=== PATIENT | female | born 1950 | race Two or more races ===

== ENCOUNTER 2019-11-24 00:48 | Inpatient (IN) | payer MEDICARE, MEDICAID ==
[2019-11-24] VITALS (52 sets, daily range): BP systolic 78–157; BP diastolic 28–88
[~2019-11-24] VITALS: Ht 162.6 cm; Wt 106.1 kg
--- NOTE | 2019-11-24 01:02 | Emergency Room Report ---
History of Present Illness General Chief Complaint: Dyspnea/Respdistress Source: Patient, Family Member Present Illness HPI This is a 69-year-old female who is Mongolian-speaking. She presents with chief complaint of shortness of breath and respiratory distress. Patient is a very poor historian. Her daughter called 911 because patient been weak and coughing and shortness of breath. According to her daughter, patient has a history of alcohol abuse and probably undiagnosed psychiatric disorder. She has a history of alcohol abuse. No drug use. Daughter said that patient is a hoarder and also get very anxious and paranoid. She refused to go to the doctors. She has diarrhea and vomiting about a week ago. Also been increasing cough. Was very weak. She is unable to get up on the floor. Per EMS, when they got there her oxygenation was 79% on room air. Patient says she felt better now since she is on oxygen. Unknown medical history. Allergies: Coded Allergies: No Known Allergies (Unverified , 11/24/19) COVID-19 Screening Contact w/high risk pt: No Experienced COVID-19 symptoms?: No COVID-19 Testing performed WAREHOUSE PERSON: No Patient History Past Medical History: none, see triage record, old chart reviewed Past Surgical History: none Pertinent Family History: none Social History: Reports: alcohol use Now: No Immunizations: other Reviewed Nursing Documentation: PMH: Agreed; PSxH: Agreed Nursing Documentation-PMH History Of Psychiatric Problem: Yes - ETOH Abuse Review of Systems Eye: Denies: eye pain, blurred vision ENT: Denies: ear pain, nose congestion, throat swelling Respiratory: Reports: cough, shortness of breath Cardiovascular: Denies: chest pain, palpitations Gastrointestinal: Denies: abdominal pain, diarrhea, nausea, vomiting Musculoskeletal: Denies: back pain, joint pain Skin: Denies: rash Neurological: Denies: headache, numbness Endocrine: Denies: increased thirst, increased urine Hematologic/Lymphatic: Denies: easy bruising All Other Systems: negative except mentioned in HPI Physical Exam Vital Signs Date Time Temp Pulse Resp B/P (MAP) Pulse Ox O2 Delivery O2 Flow Rate FiO2 11/24/19 00:52 78 20 105/48 (67) 99 Non-Rebreather Vitals with hypoxia Sp02 EP Interpretation: reviewed General Appearance: well appearing, alert, mild distress, obese Head: normocephalic, atraumatic Eyes: bilateral eye PERRL, bilateral eye EOMI ENT: hearing grossly normal, normal pharynx Neck: full range of motion, supple, no meningismus Respiratory: chest non-tender, decreased breath sounds, rales Cardiovascular #1: regular rate, rhythm, no murmur Gastrointestinal: normal bowel sounds, non tender, no mass, no organomegaly, no bruit, non-distended Musculoskeletal: back normal, normal range of motion, swelling - Lymphedema to lower extremity. 1+ pitting edema. Psychiatric: mood/affect normal Procedures Critical Care Time Critical Care Time Critical care is mandated in this patient who presented with sepsis and acute renal failure. Patient require my urgent intervention to attenuate the risks of metabolic collapse which may lead to cardiovascular collapse and . Critical care time is 35 minutes excluding any reportable procedure. Critical care time included evaluation, multiple reevaluation, looking at old charts, interpreting laboratory and diagnostic data, discussing case with patient and family and consultants, and charting. Medical Decision Making Diagnostic Impression: Primary Impression: Acute respiratory failure with hypoxia Additional Impressions: Sepsis Qualified Codes: A41.9 - Sepsis, unspecified organism; R65.20 - Severe sepsis without septic shock; N17.9 - Acute kidney failure, unspecified CAP (community acquired pneumonia) Qualified Codes: J18.9 - Pneumonia, unspecified organism ARF (acute renal failure) Qualified Codes: N17.9 - Acute kidney failure, unspecified Hyperkalemia Encephalopathy acute Anemia Qualified Codes: D64.9 - Anemia, unspecified ER Course Patient presents with generalized weakness and hypoxia. Oxygenation improved after nonrebreather. Now she is on 3 L nasal cannula and saturation at 99%. Chest x-ray and CT scan show bilateral pneumonia. Antibiotics given. She is also severely anemic. This is probably secondary to renal failure. She has hyperkalemia. There is no peak T waves or intraventricular conduction delay. This is treated with medication. She may need acute dialysis. Will admit. I discussed the case with Dr. Schroeder for admission. EKG Diagnostic Results Rate: normal Rhythm: NSR ST Segments: other - NSST changes Rhythm Strip Diag. Results EP Interpretation: yes Rate: 80 Rhythm: NSR, no PVC's, no ectopy Chest X-Ray Diagnostic Results Chest X-Ray Diagnostic Results : Chest X-Ray Ordered: Yes # of Views/Limited/Complete: 1 View Indication: Shortness of Breath EP Interpretation: Yes Interpretation: no effusion, no pneumothorax, other - Left lower lobe infiltrate Impression: Other - LLL infiltrates Electronically Signed by: Chuck Caruso MD CT/MRI/US Diagnostic Results CT/MRI/US Diagnostic Results : Imaging Test Ordered: CT chest, abdomen, and pelvis Impression Read by radiologist. CT chest showed bilateral pneumonia. CT abdomen pelvis showed enlarged pelvic lymph nodes. Last Vital Signs Date Time Temp Pulse Resp B/P (MAP) Pulse Ox O2 Delivery O2 Flow Rate FiO2 11/24/19 00:52 78 20 105/48 (67) 99 Non-Rebreather Status: improved Disposition: ADMITTED INPATIENT Condition: Critical Scripts No Active Prescriptions or Reported Meds Chuck Caruso MD Nov 24, 2019 01:02
[2019-11-24 01:33] LABS: HEMATOCRIT 23.3 % (37.0-47.0); MEAN CORPUSCULAR VOLUME 61 FL (80-99); PLATELET COUNT 429 K/UL (150-450); RED BLOOD COUNT 3.79 M/UL (4.20-5.40); RED CELL DISTRIBUTION WIDTH 17.2 % (11.6-14.8)
[2019-11-24 01:35] LABS: WHITE BLOOD COUNT 28.8 K/UL (4.8-10.8)
[2019-11-24 01:36] LABS: HEMOGLOBIN 6.8 G/DL (12.0-16.0)
[2019-11-24 01:42] LABS: INR 1.2 (0.9-1.1)
[2019-11-24 01:46] LABS: AMMONIA 22 umol/L (11-32)
[2019-11-24 01:57] LABS: ALANINE AMINOTRANSFERASE 43 U/L (12-78); ALBUMIN 2.4 G/DL (3.4-5.0); ALBUMIN/GLOBULIN RATIO 0.5 (1.0-2.7); ALKALINE PHOSPHATASE 163 U/L (46-116); ANION GAP 19 mmol/L (5-15); ASPARTATE AMINO TRANSFERASE 72 U/L (15-37); BILIRUBIN,TOTAL 0.4 MG/DL (0.2-1.0); BLOOD UREA NITROGEN 157 mg/dL (7-18); CARBON DIOXIDE 14 MMOL/L (21-32); CHLORIDE 106 MMOL/L (98-107); CREATININE 14.2 MG/DL (0.55-1.30); SODIUM 138 MMOL/L (136-145)
[2019-11-24] MEDS ORDERED: Azithromycin 500 MG in NS 275 ML IV ONE (02:00)
[2019-11-24] MEDS ORDERED: cefTRIAXone 1 GM in NS 55 ML IVPB ONE (02:00)
[2019-11-24 02:05] LABS: POTASSIUM 8.6 MMOL/L (3.5-5.1)
[2019-11-24] MEDS ORDERED: Sodium Bicarbonate 50ml Carp IV ONE ×2 (02:30→05:45)
[2019-11-24] MEDS ORDERED: Insulin Human Regular 100units/ml 3ml IV ONE ×2 (02:30→05:45)
[2019-11-24] MEDS ORDERED: Calcium Gluconate 1gm/10ml vial IVP ONE ×2 (02:30→05:45)
[2019-11-24] MEDS ORDERED: Sodium Polystyrene Sulfonate 15gm Powder ORAL ONE (02:30)
--- NOTE | 2019-11-24 03:04 | Diagnostic Imaging Report ---
EXAM: XR Chest, 1 View CLINICAL HISTORY: SOB TECHNIQUE: Frontal view of the chest. COMPARISON: No relevant prior studies available. FINDINGS: Lungs: Low lung volumes. Pleural space: Unremarkable. No pneumothorax. Heart: Cardiomegaly. Mediastinum: Unremarkable. Bones/joints: Unremarkable. IMPRESSION: Cardiomegaly and hypoventilatory chest. No acute superimposed findings noted.
[2019-11-24 04:20] LABS: ANION GAP 18 mmol/L (5-15); BLOOD UREA NITROGEN 155 mg/dL (7-18); CALCIUM 7.8 MG/DL (8.5-10.1); CARBON DIOXIDE 15 MMOL/L (21-32); CHLORIDE 107 MMOL/L (98-107); SODIUM 142 MMOL/L (136-145)
--- NOTE | 2019-11-24 05:24 | Diagnostic Imaging Report ---
EXAM: CT Abdomen and Pelvis Without Intravenous Contrast CLINICAL HISTORY: CP TECHNIQUE: Axial computed tomography images of the abdomen and pelvis without intravenous contrast. CTDI is 14.1 mGy and DLP is 923.8 mGy-cm. One or more of the following dose reduction techniques were used: automated exposure control, adjustment of the mA and/or kV according to patient size, use of iterative reconstruction technique. COMPARISON: No relevant prior studies available. FINDINGS: Lung bases: Unremarkable. No mass. No consolidation. ABDOMEN: Liver: Unremarkable. Gallbladder and bile ducts: Unremarkable. No calcified stones. No ductal dilation. Pancreas: Unremarkable. No ductal dilation. Spleen: Unremarkable. No splenomegaly. Adrenals: Unremarkable. No mass. Kidneys and ureters: Bilateral low-grade hydronephrosis. No radiopaque stones in the urinary tract identified except for nonobstructing 3 mm stone in the inferior pole left kidney. Stomach and bowel: Scattered colonic diverticuli. No obstruction. No mucosal thickening. PELVIS: Appendix: No findings to suggest acute appendicitis. Bladder: The urinary bladder is decompressed by an indwelling Kaminski catheter No stones. Reproductive: Unremarkable as visualized. ABDOMEN and PELVIS: Intraperitoneal space: Unremarkable. No free air. No significant fluid collection. Bones/joints: No acute fracture. No dislocation. Soft tissues: Anasarca. Vasculature: Unremarkable. No abdominal aortic aneurysm. Lymph nodes: Enlarged left superficial inguinal lymph node measuring 2 cm short axis There are bilateral enlarged external iliac lymph nodes, measuring 2.9 cm x 5.1 cm on the left and 2.7 x 2.0 cm on the right. Other findings: Beam hardening from patient's abdominal girth degrades detail. IMPRESSION: 1. Enlarged pelvic lymph nodes could reflect reactive changes from cellulitis in the setting of generalized bony wall edema, or other acute inflammatory changes but neoplasm such as lymphomas not excluded. Correlate clinically. Ultrasound of the pelvis could be considered to help distinguish patient's ovaries from presumed pelvic adenopathy. 2. Mild bilateral hydronephrosis, with a Kaminski catheter in the urinary bladder. Correlate with bladder catheter function. EXAM: CT Chest Without Intravenous Contrast CLINICAL HISTORY: CP TECHNIQUE: Axial computed tomography images of the chest without intravenous contrast. CTDI is 14.1 mGy and DLP is 923.8 mGy-cm. One or more of the following dose reduction techniques were used: automated exposure control, adjustment of the mA and/or kV according to patient size, use of iterative reconstruction technique. COMPARISON: No relevant prior studies available. FINDINGS: Lungs: Patchy airspace consolidation bilaterally, with more fluid consolidation in the posterior right lower lobe. Pleural space: Trace right pleural effusion. No pneumothorax. Heart: Unremarkable. No cardiomegaly. No significant pericardial effusion. Bones/joints: Unremarkable. No acute fracture. No dislocation. Soft tissues: Unremarkable. Vasculature: Unremarkable. No thoracic aortic aneurysm. Lymph nodes: There is mediastinal adenopathy. IMPRESSION: Bilateral pneumonia, with greater confluence in the posterior right lower lobe.
--- NOTE | 2019-11-24 05:35 | Emergency Room Report ---
Sepsis Event Note Evaluation Current Stage of Sepsis: Sepsis Possible Source: Pulmonary Focused Exam Allergies: Coded Allergies: No Known Allergies (Unverified , 11/24/19) Date Exam Occurred: Nov 24, 2019 Time Exam Occurred: 05:34 Laboratory Studies Laboratory Tests Test 11/24/19 00:57 11/24/19 02:38 11/24/19 03:58 White Blood Count 28.8 K/UL (4.8-10.8) *H Red Blood Count 3.79 M/UL (4.20-5.40) L Hemoglobin 6.8 G/DL (12.0-16.0) *L Hematocrit 23.3 % (37.0-47.0) L Mean Corpuscular Volume 61 FL (80-99) L Mean Corpuscular Hemoglobin 17.9 PG (27.0-31.0) L Mean Corpuscular Hemoglobin Concent 29.1 G/DL (32.0-36.0) L Red Cell Distribution Width 17.2 % (11.6-14.8) H Platelet Count 429 K/UL (150-450) Mean Platelet Volume 4.9 FL (6.5-10.1) L Neutrophils (%) (Auto) % (45.0-75.0) Lymphocytes (%) (Auto) % (20.0-45.0) Monocytes (%) (Auto) % (1.0-10.0) Eosinophils (%) (Auto) % (0.0-3.0) Basophils (%) (Auto) % (0.0-2.0) Differential Total Cells Counted 100 Neutrophils % (Manual) 98 % (45-75) H Lymphocytes % (Manual) 1 % (20-45) L Monocytes % (Manual) 1 % (1-10) Eosinophils % (Manual) 0 % (0-3) Basophils % (Manual) 0 % (0-2) Band Neutrophils 0 % (0-8) Platelet Estimate Adequate Platelet Morphology Normal Hypochromasia 4+ Anisocytosis 1+ Microcytosis 3+ Prothrombin Time 12.8 SEC (9.30-11.50) H Prothromb Time International Ratio 1.2 (0.9-1.1) H Activated Partial Thromboplast Time 32 SEC (23-33) Sodium Level 138 MMOL/L (136-145) 142 MMOL/L (136-145) Potassium Level 8.6 MMOL/L (3.5-5.1) *H 8.0 MMOL/L (3.5-5.1) *H Chloride Level 106 MMOL/L (98-107) 107 MMOL/L (98-107) Carbon Dioxide Level 14 MMOL/L (21-32) L 15 MMOL/L (21-32) L Anion Gap 19 mmol/L (5-15) H 18 mmol/L (5-15) H Blood Urea Nitrogen 157 mg/dL (7-18) H 155 mg/dL (7-18) H Creatinine 14.2 MG/DL (0.55-1.30) H 14.0 MG/DL (0.55-1.30) H Estimat Glomerular Filtration Rate 2.6 mL/min (>60) 2.6 mL/min (>60) Glucose Level 139 MG/DL (74-106) H 121 MG/DL (74-106) H Lactic Acid Level 1.10 mmol/L (0.4-2.0) Calcium Level 8.0 MG/DL (8.5-10.1) L 7.8 MG/DL (8.5-10.1) L Total Bilirubin 0.4 MG/DL (0.2-1.0) Aspartate Amino Transf (AST/SGOT) 72 U/L (15-37) H Alanine Aminotransferase (ALT/SGPT) 43 U/L (12-78) Alkaline Phosphatase 163 U/L (46-116) H Ammonia 22 umol/L (11-32) Troponin I 0.000 ng/mL (0.000-0.056) Pro-B-Type Natriuretic Peptide 5104 pg/mL (0-125) H Total Protein 7.5 G/DL (6.4-8.2) Albumin 2.4 G/DL (3.4-5.0) L Globulin 5.1 g/dL Albumin/Globulin Ratio 0.5 (1.0-2.7) L Lipase 941 U/L (73-393) H Serum Alcohol < 3 mg/dL Arterial Blood pH 7.060 (7.350-7.450) Arterial Blood Partial Pressure CO2 39.7 mmHg (35.0-45.0) Arterial Blood Partial Pressure O2 132.1 mmHg (75.0-100.0) H Arterial Blood HCO3 11.0 mmol/L (22.0-26.0) *L Arterial Blood Oxygen Saturation 97.2 % (95-100) Arterial Blood Base Excess -17.8 (-2-2) *L Lars Test Positive Vital Signs Last 24 Hour Vital Signs Date Time Temp Pulse Resp B/P (MAP) Pulse Ox O2 Delivery O2 Flow Rate FiO2 11/24/19 04:01 79 22 123/58 99 Nasal Cannula 3.0 11/24/19 01:43 96.4 81 20 105/48 99 Non-Rebreather 15.0 11/24/19 01:02 78 20 Non-Rebreather 15.0 11/24/19 00:52 78 20 105/48 (67) 99 Non-Rebreather Respiratory Exam: Rhonchi Cardiovascular Exam: RRR Capillary Refill: Less Than 2 Seconds Peripheral Pulse: Strong Pulse Location: Radial Skin Exam: Normal Turgor Chuck Caruso MD Nov 24, 2019 05:35
[2019-11-24] MEDS ORDERED: Sodium Bicarbonate 50 ML in 1/2 NS 1000ml 1,000 ML IV SCH (05:45)
--- NOTE | 2019-11-24 08:07 | History & Physical ---
History and Physical History & Physicial seen and examined. Full Dictation completed Rebecca Schroeder MD Nov 24, 2019 08:07
[2019-11-24] MEDS ORDERED: Insulin Human Regular 100units/ml 3ml IV SCH (08:15)
[2019-11-24] MEDS ORDERED: Albuterol/Ipratropium 3ml neb HHN PRN ×2 (08:15→09:15)
[2019-11-24] MEDS ORDERED: Calcium Chloride 100mg/ml Vial IVP SCH (08:15)
--- NOTE | 2019-11-24 08:26 | Consultation ---
Carlita Brewster ELECTRIC KNIFE OPERATOR 11/24/19 0826: History of Present Illness General Date patient seen: Nov 24, 2019 Time patient seen: 07:00 Chief Complaint: Dyspnea/Respdistress Referring physician: Dr Schroeder Reason for Consultation: resp failure, PNA Present Illness HPI 69 years old female presented this chief complaint of shortness of breath and respiratory distress. Her daughter called paramedics because patient was weak , coughing and short of breath. Per daughter , patient had a history of alcohol abuse and probably undiagnosed psychiatric disorder. Patient had not seen the doctor for a long time, since she refused to go to the doctors. She had diarrhea and vomiting about a week . She had increased cough. No wheezing, no hemoptysis. Pulse oximetry per evaluation by paramedics was 79%, and patient started on supplemental oxygen . patient initially was on nonrebreathing mask. Laboratory work-up revealed significant leukocytosis WBC 20.8, hemoglobin 6.8 , hematocrit 23.3, platelet count 429. Lactic acid 1.1 ABG on 3L revealed pH 7.06, PCO2 39 , bicarb 11, O2 sat 97%. Chemistry demonstrated sodium 138, potassium 8.6, anion gap 19. BUN 157 , creatinine 14.2 Glucose 139. AST 72 ALT 43 , lipase 941 Ammonia 22 Troponin negative , EKG revealed sinus rhythm, pro BNP 5124 Serum alcohol level less than 3. Chest x-ray demonstrated cardiomegaly, no acute superimposed findings. CT of the chest abdomen and pelvis revealed bilateral pneumonia, mild bilateral hydronephrosis with Kaminski in the urinary bladder and enlarged pelvic lymph nodes , which could reflect reactive changes from cellulitis in the setting of generalized bony wall edema, but neoplasm such as lymphoma not excluded. Rapid COVID-19 in the ER was negative. In emergency department septic work-up initiated Patient started on IV fluids, pancultured and started on empiric antibiotics Hyperkalemia was treated. Labs later still revealed hyperkalemia. Patient is currently on telemetry floor and being transferred to ICU for renal failure and hyperkalemia. Pulmonary consult was requested to manage respiratory failure and bilateral pneumonia. Allergies: Coded Allergies: No Known Allergies (Unverified , 11/24/19) Medication History No Active Prescriptions or Reported Meds Patient History Healthcare decision maker Resuscitation status Advanced Directive on File Review of Systems ROS Narrative pt unable to provide any history Physical Exam General Appearance: other - Persian speaking in mild resp distress obese and edematous female Lines, tubes and drains: peripheral HEENT: normocephalic, atraumatic, anicteric, mucous membranes moist Neck: non-tender, supple Respiratory/Chest: no accessory muscle use, other - crackles at abses Cardiovascular/Chest: normal peripheral pulses, normal rate, regular rhythm Abdomen: normal bowel sounds, soft - obese, non tender Extremities: normal range of motion, non-tender, no calf tenderness, other - +1 -2 edema BLE Neurologic: no motor/sensory deficits, alert, responsive - confused Musculoskeletal: normal muscle bulk Last 24 Hour Vital Signs Date Time Temp Pulse Resp B/P (MAP) Pulse Ox O2 Delivery O2 Flow Rate FiO2 11/24/19 04:01 79 22 123/58 99 Nasal Cannula 3.0 11/24/19 03:11 97.0 75 18 111/77 100 Nasal Cannula 3.0 11/24/19 01:43 96.4 81 20 105/48 99 Non-Rebreather 15.0 11/24/19 01:02 78 20 Non-Rebreather 15.0 11/24/19 00:52 78 20 105/48 (67) 99 Non-Rebreather Intake and Output 11/23/19 11/24/19 19:00 07:00 Intake Total 330 ml Balance 330 ml Intake Oral 0 ml IV Total 330 ml Laboratory Tests Test 11/24/19 00:57 11/24/19 02:38 11/24/19 03:58 11/24/19 05:43 White Blood Count 28.8 K/UL (4.8-10.8) *H Red Blood Count 3.79 M/UL (4.20-5.40) L Hemoglobin 6.8 G/DL (12.0-16.0) *L Hematocrit 23.3 % (37.0-47.0) L Mean Corpuscular Volume 61 FL (80-99) L Mean Corpuscular Hemoglobin 17.9 PG (27.0-31.0) L Mean Corpuscular Hemoglobin Concent 29.1 G/DL (32.0-36.0) L Red Cell Distribution Width 17.2 % (11.6-14.8) H Platelet Count 429 K/UL (150-450) Mean Platelet Volume 4.9 FL (6.5-10.1) L Neutrophils (%) (Auto) % (45.0-75.0) Lymphocytes (%) (Auto) % (20.0-45.0) Monocytes (%) (Auto) % (1.0-10.0) Eosinophils (%) (Auto) % (0.0-3.0) Basophils (%) (Auto) % (0.0-2.0) Differential Total Cells Counted 100 Neutrophils % (Manual) 98 % (45-75) H Lymphocytes % (Manual) 1 % (20-45) L Monocytes % (Manual) 1 % (1-10) Eosinophils % (Manual) 0 % (0-3) Basophils % (Manual) 0 % (0-2) Band Neutrophils 0 % (0-8) Platelet Estimate Adequate Platelet Morphology Normal Hypochromasia 4+ Anisocytosis 1+ Microcytosis 3+ Prothrombin Time 12.8 SEC (9.30-11.50) H Prothromb Time International Ratio 1.2 (0.9-1.1) H Activated Partial Thromboplast Time 32 SEC (23-33) Sodium Level 138 MMOL/L (136-145) 142 MMOL/L (136-145) Potassium Level 8.6 MMOL/L (3.5-5.1) *H 8.0 MMOL/L (3.5-5.1) *H Chloride Level 106 MMOL/L (98-107) 107 MMOL/L (98-107) Carbon Dioxide Level 14 MMOL/L (21-32) L 15 MMOL/L (21-32) L Anion Gap 19 mmol/L (5-15) H 18 mmol/L (5-15) H Blood Urea Nitrogen 157 mg/dL (7-18) H 155 mg/dL (7-18) H Creatinine 14.2 MG/DL (0.55-1.30) H 14.0 MG/DL (0.55-1.30) H Estimat Glomerular Filtration Rate 2.6 mL/min (>60) 2.6 mL/min (>60) Glucose Level 139 MG/DL (74-106) H 121 MG/DL (74-106) H Lactic Acid Level 1.10 mmol/L (0.4-2.0) Calcium Level 8.0 MG/DL (8.5-10.1) L 7.8 MG/DL (8.5-10.1) L Total Bilirubin 0.4 MG/DL (0.2-1.0) Aspartate Amino Transf (AST/SGOT) 72 U/L (15-37) H Alanine Aminotransferase (ALT/SGPT) 43 U/L (12-78) Alkaline Phosphatase 163 U/L (46-116) H Ammonia 22 umol/L (11-32) Troponin I 0.000 ng/mL (0.000-0.056) Pro-B-Type Natriuretic Peptide 5104 pg/mL (0-125) H Total Protein 7.5 G/DL (6.4-8.2) Albumin 2.4 G/DL (3.4-5.0) L Globulin 5.1 g/dL Albumin/Globulin Ratio 0.5 (1.0-2.7) L Lipase 941 U/L (73-393) H Serum Alcohol < 3 mg/dL Arterial Blood pH 7.060 (7.350-7.450) Arterial Blood Partial Pressure CO2 39.7 mmHg (35.0-45.0) Arterial Blood Partial Pressure O2 132.1 mmHg (75.0-100.0) H Arterial Blood HCO3 11.0 mmol/L (22.0-26.0) *L Arterial Blood Oxygen Saturation 97.2 % (95-100) Arterial Blood Base Excess -17.8 (-2-2) *L Lars Test Positive POC Whole Blood Glucose 123 MG/DL (74-106) H Microbiology Date/Time Source Procedure Growth Status 11/24/19 00:57 Nasopharynx SARS-CoV-2 RdRp Gene Assay - Final Complete Height (Feet): 5 Height (Inches): 5.00 Weight (Pounds): 275 Medications Current Medications Medications (Trade) Dose Ordered Sig/Brina Route PRN Reason Start Time Stop Time Status Last Admin Dose Admin Calcium Chloride (Calcium Chloride 10%) 1,000 mg STAT ONCE IVP 11/24/19 08:00 11/24/19 08:01 UNV Dextrose (Dextrose 50%) 50 ml STAT ONCE IV 11/24/19 08:00 11/24/19 08:01 UNV Insulin Human Regular (NovoLIN R) 10 units ONCE ONCE IV 11/24/19 08:00 11/24/19 08:01 UNV Sodium Bicarbonate 50 ml/ Sodium Chloride 1,050 ml @ 75 mls/hr Q14H IV 11/24/19 05:45 12/24/19 05:44 11/24/19 05:59 Assessment/Plan Assessment/Plan: ASSESSMENT Sepsis Pneumonia Acute hypoxemic respiratory failure Acute toxic metabolic encephalopathy ( multifactorial due to ARF, sepsis) Acute renal failure Hyperkalemia Anemia Elevated lipase possible pancreatitis Enlarged pelvic lymph nodes Anasarca History of EtOH abuse Possible psychiatric disorder PLAN OF CARE transfer to ICU supplemental O2 titrate to keep sat above 92% pulm toilet as needed empiric abx for CAP fup with CXR and ABG SCX if able Venous Duplex BLE rapid COVID 19 NGT IVF with bicarb, further management of ARF and hyper K as per nephro monitor HH with goal to keep Hg above 7, anemia w/up stool OB likely anemia of chronci IVF with bicarb may need HD monitor volumes ECHO cardiac monitoring repeat CBC stat and transfuse if Hg below 7 trend lipase and LFT elev LFT possibly due to hx of ETOH abuse, but also elevated liapse will get hep panel abd US, given enlargen lymph nodes thank you for consult case discussed and evaluated by supervising physician Gabe Rosa MD 11/24/19 1122: History of Present Illness General Chief Complaint: Dyspnea/Respdistress Present Illness Allergies: Coded Allergies: No Known Allergies (Unverified , 11/24/19) Medication History No Active Prescriptions or Reported Meds Assessment/Plan Assessment/Plan: Patient seen and examined with ELECTRIC KNIFE OPERATOR. Agree with above A&P as it reflects our joint deliberations SIRS/Sepsis Acute renal failure AGMA Leukocytosis Anemia Pelvic LAD EtOh abuse Recent respiratory illness Start HCO3- gtt R fem CVC placed Awaiting urgent HD Repeat ABG in 30 min ----> low threshold to intubate Vanco/Zosyn Transfuse GI recs R/O COVID with 2nd PCR FC, continue to discuss GOC Monitor MS NPO CCT 60 min Carlita Brewster ELECTRIC KNIFE OPERATOR Nov 24, 2019 08:26 Gabe Rosa MD Nov 24, 2019 11:22
[2019-11-24] MEDS ORDERED: Calcium Gluconate 1gm/10ml vial IVP SCH (08:30)
[2019-11-24] MEDS ORDERED: Morphine Sulfate 2mg/ml Inj(IV/IM USE ONLY) IVP PRN (09:15)
[2019-11-24] MEDS ORDERED: Piperacillin/Tazobactam 3.375 GM in NS 110 ML IVPB SCH (09:15)
--- NOTE | 2019-11-24 09:22 | Consultation ---
Consult Note Consult Note I am asked to evaluate the patient at the request of Dr. Schroeder for renal failure and severe hyperkalemia This is a 69-year-old female who is Turkmen-speaking. She presents with chief complaint of shortness of breath and respiratory distress. Patient is a very poor historian. Her daughter called 911 because patient been weak and coughing and shortness of breath. According to her daughter, patient has a history of alcohol abuse and probably undiagnosed psychiatric disorder. She has a history of alcohol abuse. No drug use. Daughter said that patient is a hoarder and also get very anxious and paranoid. She refused to go to the doctors. She has diarrhea and vomiting about a week ago. Also been increasing cough. Was very weak. She is unable to get up on the floor. Per EMS, when they got there her oxygenation was 79% on room air. Patient says she felt better now since she is on oxygen. Unknown medical history. Allergies: No Known Allergies (Unverified , 11/24/19) COVID-19 Screening Contact w/high risk pt: No Experienced COVID-19 symptoms?: No COVID-19 Testing performed BOTANY TEACHER: No Patient seen in room [address]. On her [address] to ICU. Discussed with RN. Discussed with Dr. Schroeder Examined Data reviewed General Appearance: other - Turkmen speaking in mild resp distress obese and edematous female Lines, tubes and drains: peripheral HEENT: normocephalic, atraumatic, anicteric, mucous membranes moist Neck: non-tender, supple Respiratory/Chest: no accessory muscle use, other - crackles at abses Cardiovascular/Chest: normal peripheral pulses, normal rate, regular rhythm Abdomen: normal bowel sounds, soft - obese, non tender Extremities: normal range of motion, non-tender, no calf tenderness, other - +1 -2 edema BLE Neurologic: no motor/sensory deficits, alert, responsive - confused Musculoskeletal: normal muscle bulk Last 24 Hour Vital Signs Date Time Temp Pulse Resp B/P (MAP) Pulse Ox O2 Delivery O2 Flow Rate FiO2 11/24/19 04:01 79 22 123/58 99 Nasal Cannula 3.0 11/24/19 03:11 97.0 75 18 111/77 100 Nasal Cannula 3.0 11/24/19 01:43 96.4 81 20 105/48 99 Non-Rebreather 15.0 11/24/19 01:02 78 20 Non-Rebreather 15.0 11/24/19 00:52 78 20 105/48 (67 99 Non-Rebreather Assessment/Plan Acute renal failure and hyperkalemia Most likely underlying chronic kidney disease Sepsis, pneumonia Toxic metabolic encephalopathy Severe anemia Morbid obesity Acute hypoxemic respiratory failure Elevated lipase possible pancreatitis Enlarged pelvic lymph nodes Anasarca History of EtOH abuse Possible psychiatric disorder Patient need emergency hemodialysis General surgeon contacted to put a temporary dialysis catheter Emergency dialysis ordered Patient already treated for hyperkalemia with medications Anemia work-up ordered IV Venofer, subcu Epogen ordered Continue to monitor renal parameters Per orders I spent an additional 36 minutes on review of medical records including prior hospital records,consult notes, progress notes, procedures ,imaging labs, hemodynamics, and other clinical documentation. Over 35 min Jean-Pierre Garcia MD Nov 24, 2019 09:22
[2019-11-24 09:50] LABS: CHOLESTEROL 112 MG/DL (< 200); HDL CHOLESTEROL 32 MG/DL (40-60); TRIGLYCERIDES 92 MG/DL (30-150)
[2019-11-24] MEDS ORDERED: Lidocaine 1% 10mg/ml/EPI 0.01mg/ml 30ml INJ SCH (10:15)
--- NOTE | 2019-11-24 10:15 | Consultation ---
DATE OF CONSULTATION: 11/24/2019 CHIEF COMPLAINT: Anemia. HISTORY OF PRESENT ILLNESS: This is a very pleasant 69-year-old female. Actually at this time, she is in mild respiratory distress and not able to give any good history. She was admitted to the hospital mainly for shortness of breath. According to the family members, the patient is alcoholic and does not follow with the physicians. She possibly has history of baseline psychiatric disorder. The patient in the hospital was found to be in acute renal failure with potassium of 8, anemic, elevated lipase and so GI consult requested for evaluation. PAST MEDICAL HISTORY: 1. Alcohol abuse. 2. Questionable psychiatric disorder. PAST SURGICAL HISTORY: Unknown. ALLERGIES: No known allergies. MEDICATIONS: Please see medication reconciliation list. SOCIAL HISTORY: The patient has history of alcohol abuse. No prior history of IV drug abuse. FAMILY HISTORY: Noncontributory. REVIEW OF SYSTEMS: Limited. PHYSICAL EXAMINATION: VITAL SIGNS: Temperature 97, pulse 79, respirations 22, blood pressure is 123/58. HEENT: Normocephalic and atraumatic. Pale conjunctivae. NECK: Supple. No evidence of obvious lymphadenopathy. CARDIOVASCULAR: Regular rate and rhythm. Plus S1 and S2. LUNGS: Decreased breath sounds bilaterally based on the supine exam. ABDOMEN: Obese. Distended. Bowel sounds are hypoactive. No rebound. No guarding. No peritoneal sign. EXTREMITIES: No cyanosis, no clubbing. LABORATORY AND DIAGNOSTIC DATA: White count is 28,000, hemoglobin 6.8, hematocrit 23, MCV of 61, platelet count of 429. ASSESSMENT AND PLAN: 1. Acute renal failure. 2. Leukocytosis. 3. History of alcohol abuse. 4. Profound microcytic anemia. 5. Prior history of possible psychiatric disorder. 6. Elevated lipase. 7. Mild transaminitis. 8. Pelvic lymphadenopathy. RECOMMENDATION: Stat dialysis per Nephrology. Blood transfusion to keep hemoglobin above 7. Anemia workup. Antibiotics per ID, possibly pelvic ultrasound when the patient is more stable. Check LDH. Repeat labs for tomorrow. GI procedures on hold for now. I want to thank, Dr. Schroeder, for this kind referral. Ministerio Davis M.D. DR: Mary JOB#: [id number] CC: Rebecca Schroeder M.D.; Fax#: [phone]
[2019-11-24 10:20] LABS: HEMATOCRIT 22.2 % (37.0-47.0); MEAN CORPUSCULAR VOLUME 62 FL (80-99); PLATELET COUNT 385 K/UL (150-450); RED BLOOD COUNT 3.56 M/UL (4.20-5.40); RED CELL DISTRIBUTION WIDTH 17.4 % (11.6-14.8)
[2019-11-24] MEDS: Zosyn 2.25 gm in D5W 55ml IV SCH ×2 (10:21→17:38)
[2019-11-24 10:24] LABS: HEMOGLOBIN 6.2 G/DL (12.0-16.0); WHITE BLOOD COUNT 30.5 K/UL (4.8-10.8)
[2019-11-24 10:43] LABS: FERRITIN 86 NG/ML (8-388)
[2019-11-24] MEDS ORDERED: Pantoprazole Inj IVP SCH (11:00)
[2019-11-24] MEDS: Sodium Bicarbonate 150 ML in D5W 1000ml 1,000 ML IV SCH ×2 (11:12→20:25)
--- NOTE | 2019-11-24 11:30 | Operative Note - PDOC ---
Operative Note Operative Note Date of Operation/Procedure: Nov 24, 2019 Pre-op Diagnosis: hyperkalemia renal insufficiency sepsis Procedure: right femoral temporary Hemodialysis catheter insertion Post-op Diagnosis: same as pre-op Surgeon: cici naik MD Anesthesia: local Specimen: none Complications: none Condition: unstable Estimated Blood Loss: minimal Drains: none Implant(s) used?: No Indications for Procedure 69F critically ill in ICU with hyperkalemia k>8, anemia, sepsis, renal insufficiency. EMERGENCY HD indicated and recommended. needs access as no prior HD. Description of Procedure patient made comfortable at the bedside. right groin was prepped and draped in standard surgical fashion. local infiltrated. anatomy identified. finder needle used and right femoral vein cannulated without complication good venous flow identified. Guidewire placed over needle needle removed. Local anesthetic further infiltrated for patient's comfort and a 11 scalpel use small incision made around the guidewire. Dilators were then used and the tract was dilated. A triple-lumen temporary hemodialysis catheter was inserted over guidewire without complication. Guidewire removed and discarded. All ports flushed and aspirated appropriately. Line was sutured in place and dressings were applied. Stat hemodialysis ordered. Line okay to use. Will follow with recommendations. Thank you Cici Naik Nov 24, 2019 11:30
[2019-11-24 11:40] LABS: % IRON SATURATION 3 % (15-50); IRON 7 ug/dL (50-175); TOTAL IRON BINDING CAPACITY 239 ug/dL (250-450)
[2019-11-24] MEDS ORDERED: Vancomycin 1.5gm/NS Premix IVPB ONE (12:00)
--- NOTE | 2019-11-24 12:45 | History and Physical Report ---
DATE OF ADMISSION: 11/24/2019 SOURCE OF INFORMATION: The patient and EMR. HISTORY OF PRESENT ILLNESS: The patient is a 69-year-old female with unknown past medical history. At the time of evaluation, the patient is delirious. Source of information is based on the ER attending documentation. Apparently, the patient came with the shortness of breath via 911 called by her daughter. Reported history of alcohol abuse and psychiatric problems. At the time of evaluation, the patient is poor historian, is not able to communicate more than one word at the time. REVIEW OF SYSTEMS: Limited as above. PAST MEDICAL AND SURGICAL HISTORY: Including, but not limited to psychiatric disorder, remainder cannot be obtained. FAMILY HISTORY: Not obtained. ALLERGIES: NKDA, with limitations not verified. MEDICATIONS: Current hospital medications including, but not limited to D5 saline at 75 mL/hr. PHYSICAL EXAMINATION: VITAL SIGNS: Blood pressure , temperature 97.8, respiratory rate 25. HEAD AND NECK: Atraumatic and normocephalic. CHEST: Diffuse bronchial breathing sounds. HEART: S1 and S2. Regular rate and rhythm. ABDOMEN: Soft. No organomegaly. Protuberant. No tenderness. MUSCULOSKELETAL: No gross lateralized motor deficit. It is limited examination as the patient is not cooperative. NEUROLOGIC: The patient is delirious. DIAGNOSTIC AND LABORATORY DATA: Imaging, dated November [address] scan of abdomen and pelvis, multiple lymph nodes in the pelvic area, mild bilateral hydronephrosis. Chest x-ray shows cardiomegaly, otherwise unremarkable. Labs, dated shows WBC 28.8, hemoglobin 6.8, platelet 429,000, MCV 61. Potassium 8.6, creatinine 14.2. AST 42. Troponin x1 negative. Lipase 900. INR 1.2. ASSESSMENT: 1. Severe sepsis. 2. Hypoxemic respiratory failure. 3. Hyperkalemia. 4. End-stage renal disease. 5. CHF, likely diagnosis. 6. Abnormal blood sugar. 7. Microcytic anemia. 8. GI and DVT prophylaxis. PLAN OF CARE: We will transfer the patient to the ICU. Nephrology, Pulmonary, Infectious Disease have been consulted and notified. We will start the patient with empiric antibiotic treatment. Proceed with dialysis. The patient remains in grave prognosis. Rebecca Schroeder M.D. DR: LOREN JOB#: [id number] CC:
[2019-11-24] MEDS: Norepinephrine 4mg/NS Premix 250 ML IV SCH (13:45)
[2019-11-24] MEDS ORDERED: Iron Sucrose 200 MG in NS 110 ML IV ONE (16:00)
[2019-11-24 19:35] LABS: HEMOGLOBIN 8.3 G/DL (12.0-16.0); MEAN CORPUSCULAR VOLUME 66 FL (80-99); PLATELET COUNT 328 K/UL (150-450); RED BLOOD COUNT 3.94 M/UL (4.20-5.40); RED CELL DISTRIBUTION WIDTH 24.4 % (11.6-14.8)
[2019-11-24 19:38] LABS: INR 1.2 (0.9-1.1)
[2019-11-24 19:43] LABS: WHITE BLOOD COUNT 25.6 K/UL (4.8-10.8)
[2019-11-24] MEDS: Pantoprazole Inj IVP SCH (20:25)
--- NOTE | 2019-11-24 20:28 | Cardiology Progress Note ---
Assessment/Plan Assessment/Plan The patient is seen and examined, full consult note will be dictated shortly. Objective Last 24 Hour Vital Signs Date Time Temp Pulse Resp B/P (MAP) Pulse Ox O2 Delivery O2 Flow Rate FiO2 11/24/19 20:00 Bi-pap 11/24/19 20:00 107 11/24/19 20:00 107 28 145/74 (97) 96 11/24/19 19:30 103 26 129/69 (89) 95 11/24/19 19:00 105 24 137/64 (88) 99 11/24/19 18:54 103 26 98 40 11/24/19 18:45 104 20 133/64 (87) 97 11/24/19 18:30 94 19 132/68 (89) 96 11/24/19 18:15 105 25 134/64 (87) 95 11/24/19 18:00 106 25 135/83 (100) 95 11/24/19 17:45 104 21 145/81 (102) 94 11/24/19 17:30 96 18 140/70 (93) 96 11/24/19 17:15 103 20 137/63 (87) 97 11/24/19 17:00 102 19 136/67 (90) 97 11/24/19 16:45 103 17 133/56 (81) 96 11/24/19 16:30 98 19 150/72 (98) 96 11/24/19 16:15 102 19 138/61 (86) 97 11/24/19 16:00 108 11/24/19 16:00 40 11/24/19 16:00 Bi-pap 11/24/19 16:00 98.6 98 19 140/59 (86) 97 11/24/19 15:45 106 19 126/68 (87) 99 11/24/19 15:42 108 20 100 40 11/24/19 15:30 107 15 131/62 (85) 100 11/24/19 15:15 108 17 135/86 (102) 100 11/24/19 15:00 97.4 106 17 157/69 (98) 100 11/24/19 14:56 103 17 146/72 (96) 100 11/24/19 14:45 109 17 116/64 (81) 100 11/24/19 14:30 103 18 134/71 (92) 100 11/24/19 14:15 103 19 128/60 (82) 100 11/24/19 14:09 99 18 129/65 (86) 100 11/24/19 14:00 99 17 144/66 (92) 100 11/24/19 13:45 82/43 11/24/19 13:45 101 19 132/57 (82) 100 11/24/19 13:42 109 20 103/48 (66) 100 11/24/19 13:30 50 11/24/19 13:30 50 11/24/19 13:30 100 16 82/43 (56) 100 11/24/19 13:25 94.8 102 22 90/42 (58) 100 11/24/19 13:22 100 22 78/45 (56) 100 11/24/19 13:19 101 22 86/38 (54) 99 11/24/19 13:15 101 21 89/40 (56) 94 11/24/19 13:09 104 22 83/43 (56) 92 11/24/19 13:06 100 22 88/38 (55) 93 11/24/19 13:03 102 23 90/48 (62) 94 11/24/19 13:00 98 21 80/44 (56) 94 11/24/19 13:00 30 11/24/19 12:55 104 24 92 30 11/24/19 12:30 93 20 111/51 (71) 93 11/24/19 12:27 99 25 132/62 (85) 91 11/24/19 12:23 68 32 108/29 (55) 88 11/24/19 12:18 84 27 109/28 (55) 90 11/24/19 12:15 84 26 121/51 (74) 92 11/24/19 12:09 83 25 119/53 (75) 95 11/24/19 12:00 95.0 81 25 134/59 (84) 93 11/24/19 12:00 Bi-pap 11/24/19 10:02 72 20 100 Nasal Cannula 2.0 28 63 22 100 11/24/19 09:49 98.7 87 24 135/88 (104) 98 11/24/19 09:25 Nasal Cannula 2.0 11/24/19 09:13 Nasal Cannula 3.0 11/24/19 09:00 3.0 11/24/19 08:00 98.7 87 24 135/88 (104) 98 11/24/19 08:00 71 11/24/19 04:01 79 22 123/58 99 Nasal Cannula 3.0 11/24/19 03:11 97.0 75 18 111/77 100 Nasal Cannula 3.0 11/24/19 01:43 96.4 81 20 105/48 99 Non-Rebreather 15.0 11/24/19 01:02 78 20 Non-Rebreather 15.0 11/24/19 00:52 78 20 105/48 (67) 99 Non-Rebreather Intake and Output 11/23/19 11/24/19 19:00 07:00 Intake Total 330 ml Balance 330 ml Intake Oral 0 ml IV Total 330 ml Laboratory Tests Test 11/24/19 00:57 11/24/19 02:38 11/24/19 03:58 11/24/19 05:43 White Blood Count 28.8 K/UL (4.8-10.8) *H Red Blood Count 3.79 M/UL (4.20-5.40) L Hemoglobin 6.8 G/DL (12.0-16.0) *L Hematocrit 23.3 % (37.0-47.0) L Mean Corpuscular Volume 61 FL (80-99) L Mean Corpuscular Hemoglobin 17.9 PG (27.0-31.0) L Mean Corpuscular Hemoglobin Concent 29.1 G/DL (32.0-36.0) L Red Cell Distribution Width 17.2 % (11.6-14.8) H Platelet Count 429 K/UL (150-450) Mean Platelet Volume 4.9 FL (6.5-10.1) L Neutrophils (%) (Auto) % (45.0-75.0) Lymphocytes (%) (Auto) % (20.0-45.0) Monocytes (%) (Auto) % (1.0-10.0) Eosinophils (%) (Auto) % (0.0-3.0) Basophils (%) (Auto) % (0.0-2.0) Differential Total Cells Counted 100 Neutrophils % (Manual) 98 % (45-75) H Lymphocytes % (Manual) 1 % (20-45) L Monocytes % (Manual) 1 % (1-10) Eosinophils % (Manual) 0 % (0-3) Basophils % (Manual) 0 % (0-2) Band Neutrophils 0 % (0-8) Platelet Estimate Adequate Platelet Morphology Normal Hypochromasia 4+ Anisocytosis 1+ Microcytosis 3+ Prothrombin Time 12.8 SEC (9.30-11.50) H Prothromb Time International Ratio 1.2 (0.9-1.1) H Activated Partial Thromboplast Time 32 SEC (23-33) Sodium Level 138 MMOL/L (136-145) 142 MMOL/L (136-145) Potassium Level 8.6 MMOL/L (3.5-5.1) *H 8.0 MMOL/L (3.5-5.1) *H Chloride Level 106 MMOL/L (98-107) 107 MMOL/L (98-107) Carbon Dioxide Level 14 MMOL/L (21-32) L 15 MMOL/L (21-32) L Anion Gap 19 mmol/L (5-15) H 18 mmol/L (5-15) H Blood Urea Nitrogen 157 mg/dL (7-18) H 155 mg/dL (7-18) H Creatinine 14.2 MG/DL (0.55-1.30) H 14.0 MG/DL (0.55-1.30) H Estimat Glomerular Filtration Rate 2.6 mL/min (>60) 2.6 mL/min (>60) Glucose Level 139 MG/DL (74-106) H 121 MG/DL (74-106) H Hemoglobin A1c 6.0 % (4.3-6.0) Lactic Acid Level 1.10 mmol/L (0.4-2.0) Calcium Level 8.0 MG/DL (8.5-10.1) L 7.8 MG/DL (8.5-10.1) L Total Bilirubin 0.4 MG/DL (0.2-1.0) Aspartate Amino Transf (AST/SGOT) 72 U/L (15-37) H Alanine Aminotransferase (ALT/SGPT) 43 U/L (12-78) Alkaline Phosphatase 163 U/L (46-116) H Ammonia 22 umol/L (11-32) Troponin I 0.000 ng/mL (0.000-0.056) Pro-B-Type Natriuretic Peptide 5104 pg/mL (0-125) H Total Protein 7.5 G/DL (6.4-8.2) Albumin 2.4 G/DL (3.4-5.0) L Globulin 5.1 g/dL Albumin/Globulin Ratio 0.5 (1.0-2.7) L Triglycerides Level 92 MG/DL (30-150) Cholesterol Level 112 MG/DL (< 200) LDL Cholesterol 59 mg/dL (<100) HDL Cholesterol 32 MG/DL (40-60) L Cholesterol/HDL Ratio 3.5 (3.3-4.4) Lipase 941 U/L (73-393) H Serum Alcohol < 3 mg/dL Arterial Blood pH 7.060 (7.350-7.450) Arterial Blood Partial Pressure CO2 39.7 mmHg (35.0-45.0) Arterial Blood Partial Pressure O2 132.1 mmHg (75.0-100.0) H Arterial Blood HCO3 11.0 mmol/L (22.0-26.0) *L Arterial Blood Oxygen Saturation 97.2 % (95-100) Arterial Blood Base Excess -17.8 (-2-2) *L Lars Test Positive POC Whole Blood Glucose 123 MG/DL (74-106) H Test 11/24/19 08:14 11/24/19 09:55 11/24/19 12:30 11/24/19 14:00 POC Whole Blood Glucose 98 MG/DL (74-106) White Blood Count 30.5 K/UL (4.8-10.8) *H Red Blood Count 3.56 M/UL (4.20-5.40) L Hemoglobin 6.2 G/DL (12.0-16.0) *L Hematocrit 22.2 % (37.0-47.0) L Mean Corpuscular Volume 62 FL (80-99) L Mean Corpuscular Hemoglobin 17.4 PG (27.0-31.0) L Mean Corpuscular Hemoglobin Concent 27.9 G/DL (32.0-36.0) L Red Cell Distribution Width 17.4 % (11.6-14.8) H Platelet Count 385 K/UL (150-450) Mean Platelet Volume 4.6 FL (6.5-10.1) L Neutrophils (%) (Auto) % (45.0-75.0) Lymphocytes (%) (Auto) % (20.0-45.0) Monocytes (%) (Auto) % (1.0-10.0) Eosinophils (%) (Auto) % (0.0-3.0) Basophils (%) (Auto) % (0.0-2.0) Differential Total Cells Counted 100 Neutrophils % (Manual) 88 % (45-75) H Lymphocytes % (Manual) 5 % (20-45) L Monocytes % (Manual) 7 % (1-10) Eosinophils % (Manual) 0 % (0-3) Basophils % (Manual) 0 % (0-2) Band Neutrophils 0 % (0-8) Platelet Estimate Adequate Platelet Morphology Normal Polychromasia 1+ Hypochromasia 1+ Anisocytosis 1+ Microcytosis 2+ Iron Level 7 ug/dL (50-175) L Total Iron Binding Capacity 239 ug/dL (250-450) L Percent Iron Saturation 3 % (15-50) L Unsaturated Iron Binding 232 ug/dL (112-346) Ferritin 86 NG/ML (8-388) Vitamin B12 Level > 2000 PG/ML (193-986) H Folate 6.8 NG/ML (8.6-58.9) L Arterial Blood pH 7.264 (7.350-7.450) Arterial Blood Partial Pressure CO2 39.8 mmHg (35.0-45.0) Arterial Blood Partial Pressure O2 272.0 mmHg (75.0-100.0) H Arterial Blood HCO3 17.6 mmol/L (22.0-26.0) *L Arterial Blood Oxygen Saturation 99.1 % (95-100) Arterial Blood Base Excess -8.6 (-2-2) L Lars Test Positive Troponin I 0.000 ng/mL (0.000-0.056) Hepatitis B Surface Antigen Pending Test 11/24/19 14:26 11/24/19 19:15 Arterial Blood pH 7.461 (7.350-7.450) Arterial Blood Partial Pressure CO2 35.3 mmHg (35.0-45.0) Arterial Blood Partial Pressure O2 116.3 mmHg (75.0-100.0) H Arterial Blood HCO3 24.6 mmol/L (22.0-26.0) Arterial Blood Oxygen Saturation 98.0 % (95-100) Arterial Blood Base Excess 1.0 (-2-2) Lars Test Positive White Blood Count 25.6 K/UL (4.8-10.8) *H Red Blood Count 3.94 M/UL (4.20-5.40) L Hemoglobin 8.3 G/DL (12.0-16.0) #L Hematocrit 26.0 % (37.0-47.0) L Mean Corpuscular Volume 66 FL (80-99) L Mean Corpuscular Hemoglobin 21.0 PG (27.0-31.0) L Mean Corpuscular Hemoglobin Concent 31.8 G/DL (32.0-36.0) L Red Cell Distribution Width 24.4 % (11.6-14.8) H Platelet Count 328 K/UL (150-450) Mean Platelet Volume 5.0 FL (6.5-10.1) L Neutrophils (%) (Auto) % (45.0-75.0) Lymphocytes (%) (Auto) % (20.0-45.0) Monocytes (%) (Auto) % (1.0-10.0) Eosinophils (%) (Auto) % (0.0-3.0) Basophils (%) (Auto) % (0.0-2.0) Neutrophils % (Manual) Pending Lymphocytes % (Manual) Pending Platelet Estimate Pending Platelet Morphology Pending Prothrombin Time 12.7 SEC (9.30-11.50) H Prothromb Time International Ratio 1.2 (0.9-1.1) H Activated Partial Thromboplast Time 34 SEC (23-33) H Microbiology Date/Time Source Procedure Growth Status 11/24/19 12:00 Nasopharynx SARS-CoV-2 RdRp Gene Assay - Final Complete 11/24/19 00:57 Nasopharynx SARS-CoV-2 RdRp Gene Assay - Final Complete Adryan Lopez MD Nov 24, 2019 20:28
[2019-11-24 21:59] LABS: ANION GAP 15 mmol/L (5-15); BLOOD UREA NITROGEN 89 mg/dL (7-18); CALCIUM 8.1 MG/DL (8.5-10.1); CARBON DIOXIDE 25 MMOL/L (21-32); CHLORIDE 105 MMOL/L (98-107); CREATININE 8.9 MG/DL (0.55-1.30); POTASSIUM 5.1 MMOL/L (3.5-5.1); SODIUM 145 MMOL/L (136-145)
--- NOTE | 2019-11-24 23:15 | Consultation ---
DATE OF CONSULTATION: 11/24/2019 CARDIOLOGY CONSULTATION REFERRING PHYSICIAN: Rebecca Schroeder M.D. REASON FOR CONSULTATION: Management of congestive heart failure. HISTORY OF PRESENT ILLNESS: The patient is a very unfortunate 69-year-old female who presents to the hospital with progressive worsening of shortness of breath and cough as well as generalized weakness. The patient has had underlying alcohol abuse and psychiatric disorder according to the patient's daughter. The patient had also recent episodes of diarrhea and vomiting. The patient was brought in by EMS, who recorded an oxygen saturation of 79% on room air. At the time of arrival to the emergency department, blood pressure was 105/48 mmHg and heart rate was 78. Her 12-lead electrocardiogram was significant for sinus rhythm with first-degree AV block, intraventricular conduction delay, and nonspecific ST and T-wave abnormalities. Chest x-ray was significant for cardiomegaly with bilateral pulmonary edema and possibility of pericardial effusion. Initial laboratory finding was significant for a potassium of 8.0 and BUN and creatinine of 155 and 14 respectively. Troponin I level was 0; however, proBNP was 5104. The patient was admitted to intensive care unit for acute respiratory failure, acute kidney injury with severe hyperkalemia. The patient underwent hemodialysis. Cardiology consultation was made at request of Dr. Schroeder to address and manage congestive heart failure. PAST MEDICAL HISTORY: 1. Paranoid schizophrenia. 2. Alcohol abuse. SOCIAL HISTORY: Positive for alcohol abuse. Denies any tobacco or illicit drug use. FAMILY HISTORY: No premature coronary artery disease in the first-degree relatives. PAST SURGICAL HISTORY: None. REVIEW OF SYSTEMS: HEENT: Denies any headache, diplopia, blurred vision. CONSTITUTIONAL: Positive generalized weakness, but no fever or chills. Positive malaise and fatigue. CARDIOVASCULAR: Positive for shortness of breath. Denies any PND, orthopnea, leg swelling, syncope, or palpitation. PULMONARY: Positive for shortness of breath and cough. No hemoptysis. GASTROINTESTINAL: Positive for diarrhea and nausea and vomiting. No GI bleed. GENITOURINARY: Denies any hematuria, dysuria, incontinence. NEUROLOGIC: Denies any motor dysfunction, sensory deficit, altered speech. Positive for altered mental status. LIST OF MEDICATION AT HOME: None. PHYSICAL EXAMINATION: VITAL SIGNS: Blood pressure was 105/48 mmHg, pulse of 78, respirations 20, O2 saturation 99% on nonrebreather at 15 L/minute. GENERAL: A 69-year-old female in [id number] respiratory distress. Currently on BiPAP mask in the intensive care unit of this facility. HEENT: Atraumatic, normocephalic. ENT, pupils are equal, round, and reactive to light and accommodation. Positive pallor. NECK: Cannot assess JVP due to obesity and short neck and current use of BiPAP mask. No carotid bruit. Carotid upstrokes 2+ bilaterally. CARDIOVASCULAR: Normal S1, S2. Regular rate and rhythm. No murmurs, gallops, or rubs. PMI is at fourth intercostal space in the midclavicular line. LUNGS: Bilateral crackles, mostly in the bases. ABDOMEN: Soft, nondistended. No hepatosplenomegaly. Positive bowel sounds. EXTREMITIES: No evidence of edema, clubbing, or cyanosis. LABORATORY FINDINGS: Sodium 138, potassium is 8.6, chloride 106, bicarbonate 14, BUN of 157, creatinine of 14.2, glucose 139, calcium is 8.0. Troponin I was 0 and proBNP was 1504. LDL is 59 and HDL of 32, triglycerides 92. INR is 1.2. Serum alcohol is less than 3. Blood gas showed pH of 7.0, pCO2 of 39.7, pO2 of 132, bicarbonate 11, consistent with combined metabolic and respiratory acidosis. Chest x-ray, cardiomegaly with bilateral pulmonary edema, possibility of pericardial effusion. ASSESSMENT AND PLAN: The patient is a very unfortunate 69-year-old female, seen in cardiology consultation. 1. Acute congestive heart failure, most likely diastolic. However, we will require 2D echocardiography to address LV systolic and diastolic function. 2. At this time, aggressive hemodialysis for decrease of preload. We would continue to monitor blood pressure throughout this hospitalization. 3. Hyperkalemia. A 12-lead electrocardiogram does not show any tall or peak T-waves and the initial nonspecific intraventricular conduction delay has been resolved after repeat of EKG. We will continue monitoring potassium, record another basic metabolic panel to check the potassium level after hemodialysis earlier today. 4. Alcohol abuse. 5. Acute kidney injury. 6. Dyslipidemia with low HDL. Total amount of time spent in the intensive care unit of [facility] reviewing the records, discussing the plan of care with the primary care physician as well as nursing staff was 50 minutes. I would like to thank Dr. Schroeder for the courtesy of this consultation. Adryan Lopez M.D. DR: HUBERT JOB#: [id number] CC:
--- NOTE | 2019-11-24 23:15 | Consultation ---
DATE OF CONSULTATION: 11/24/2019 INFECTIOUS DISEASES CONSULTATION CONSULTING PHYSICIAN: Charan Love MD. REFERRING PHYSICIAN: Rebecca Schroeder MD. REASON FOR CONSULTATION: Evaluation of the patient for pneumonia, sepsis, antibiotic management. HISTORY OF PRESENT ILLNESS: The patient is a 69-year-old female, poor historian was admitted to this medical center due to shortness of breath after daughter called 911. The patient has history of alcohol abuse and psychiatric disorder in the past. The patient currently has been admitted in the ICU, started on BiPAP. The patient was found to have abnormal electrolytes and renal insufficiency requiring dialysis. PAST MEDICAL HISTORY: Significant for: 1. Psychiatric disorder. 2. History of alcohol abuse. The rest of the history is not clear. FAMILY HISTORY: Not available. ALLERGIES: No known drug allergies. MEDICATIONS: Zosyn and vancomycin. SOCIAL HISTORY: As mentioned above. PHYSICAL EXAMINATION: VITAL SIGNS: Temperature 97.4, pulse 86, respiratory rate 18, blood pressure 137/64. HEENT: No pale conjunctivae. No icterus. Mouth covered by BiPAP mask. NECK: No lymphadenopathy. CHEST: Coarse breathing sounds. HEART: S1-S2. ABDOMEN: Obese. EXTREMITIES: No cyanosis at this time. NEUROLOGIC: Awake. LABORATORY AND DIAGNOSTIC DATA: White blood cells 23, hemoglobin 8.3, platelets 328. BUN 155, creatinine 14. Alkaline phosphatase 163, ALT and AST unremarkable. Lipase is 941. Hepatitis BS antigen pending. Nasopharyngeal rapid test x2 negative; however within [address] of abdomen and pelvis showed enlarged pelvic node, mild bilateral hydronephrosis. Chest x-ray, cardiomegaly, hypoventilatory chest. ASSESSMENT: The patient is a 69-year-old female with: 1. Respiratory distress. 2. Doubt pneumonia. 3. Leukocytosis, acute reacted to distress versus sepsis. 4. Probable sepsis. 5. Probable UTI. 6. Rule out probable bacteremia. 7. Less likely COVID; however we will rule out the second test. 8. Monitor CBC. PLAN: 1. We will continue the patient on IV Zosyn, discontinue vancomycin. 2. Monitor blood culture. 3. Monitor urine culture. 4. Second COVID test after 24 hours. 5. Monitor lipase. Based on the patient's clinical course and labs, we will do further recommendations. I have advised nursing staff to keep the patient in insolation until second test. Charan Love M.D. DR: Mansi JOB#: [id number] CC:
[2019-11-25] VITALS (26 sets, daily range): BP systolic 107–144; BP diastolic 54–76
[2019-11-25] MEDS: Zosyn 2.25 gm in D5W 55ml IV SCH ×2 (01:00→11:07)
[2019-11-25] MEDS: Sodium Bicarbonate 150 ML in D5W 1000ml 1,000 ML IV SCH (04:32)
[2019-11-25 05:16] LABS: HEMATOCRIT 24.8 % (37.0-47.0); HEMOGLOBIN 7.7 G/DL (12.0-16.0); MEAN CORPUSCULAR VOLUME 67 FL (80-99); PLATELET COUNT 294 K/UL (150-450); RED BLOOD COUNT 3.71 M/UL (4.20-5.40); RED CELL DISTRIBUTION WIDTH 22.7 % (11.6-14.8)
[2019-11-25 05:58] LABS: CREATINE KINASE 117 U/L (26-308); GAMMA GLUTAMYL TRANSPEPTIDASE 15 U/L (5-85)
[2019-11-25 05:59] LABS: PHOSPHORUS 7.9 MG/DL (2.5-4.9)
[2019-11-25 06:02] LABS: ALANINE AMINOTRANSFERASE 54 U/L (12-78); ALBUMIN/GLOBULIN RATIO 0.5 (1.0-2.7); ALKALINE PHOSPHATASE 158 U/L (46-116); ANION GAP 14 mmol/L (5-15); ASPARTATE AMINO TRANSFERASE 67 U/L (15-37); BILIRUBIN,TOTAL 0.4 MG/DL (0.2-1.0); BLOOD UREA NITROGEN 91 mg/dL (7-18); CALCIUM 7.4 MG/DL (8.5-10.1); CARBON DIOXIDE 28 MMOL/L (21-32); CHLORIDE 105 MMOL/L (98-107); CREATININE 9.1 MG/DL (0.55-1.30); LACTATE DEHYDROGENASE 412 U/L (81-234); POTASSIUM 5.2 MMOL/L (3.5-5.1); SODIUM 146 MMOL/L (136-145)
[2019-11-25 06:18] LABS: WHITE BLOOD COUNT 23.7 K/UL (4.8-10.8)
--- NOTE | 2019-11-25 08:23 | General Progress Note ---
Assessment/Plan Assessment/Plan: 1. Acute renal failure. 2. Leukocytosis. 3. History of alcohol abuse. 4. Profound microcytic anemia. 5. Prior history of possible psychiatric disorder. 6. Elevated lipase. 7. Mild transaminitis. 8. Pelvic lymphadenopathy. 9. obesity s/p HD fu labs keep npo repeat labs including lipase tomorrow Subjective ROS Limited/Unobtainable: Yes Allergies: Coded Allergies: No Known Allergies (Unverified , 11/24/19) Subjective more alert Objective Last 24 Hour Vital Signs Date Time Temp Pulse Resp B/P (MAP) Pulse Ox O2 Delivery O2 Flow Rate FiO2 11/25/19 07:00 106 30 121/55 (77) 95 11/25/19 06:30 106 29 121/65 (83) 97 11/25/19 06:00 99.7 105 30 116/54 (74) 97 11/25/19 05:30 106 32 124/66 (85) 97 11/25/19 05:00 107 28 115/61 (79) 97 11/25/19 04:30 107 33 130/59 (82) 97 11/25/19 04:00 99.9 100 27 121/55 (77) 96 11/25/19 04:00 Bi-pap 11/25/19 04:00 8.0 40 11/25/19 04:00 100 11/25/19 03:30 106 29 129/62 (84) 97 11/25/19 03:00 106 26 114/57 (76) 98 11/25/19 02:30 109 30 134/65 (88) 97 11/25/19 02:00 110 31 122/56 (78) 97 11/25/19 01:30 111 29 128/62 (84) 98 11/25/19 01:00 110 28 136/57 (83) 97 11/25/19 00:30 108 28 134/63 (86) 98 11/25/19 00:00 8.0 40 11/25/19 00:00 108 11/25/19 00:00 Bi-pap 11/25/19 00:00 108 31 137/70 (92) 98 11/24/19 23:03 107 32 97 40 11/24/19 23:00 103 29 133/80 (97) 98 11/24/19 22:00 102 27 128/68 (88) 96 11/24/19 21:30 110 28 138/65 (89) 96 11/24/19 21:00 110 31 133/73 (93) 97 11/24/19 20:30 107 30 138/72 (94) 97 11/24/19 20:00 Bi-pap 11/24/19 20:00 107 11/24/19 20:00 40 11/24/19 20:00 99.5 107 28 145/74 (97) 96 11/24/19 20:00 40 11/24/19 19:30 103 26 129/69 (89) 95 11/24/19 19:00 105 24 137/64 (88) 99 11/24/19 18:54 103 26 98 40 11/24/19 18:45 104 20 133/64 (87) 97 11/24/19 18:30 94 19 132/68 (89) 96 11/24/19 18:15 105 25 134/64 (87) 95 11/24/19 18:00 106 25 135/83 (100) 95 11/24/19 17:45 104 21 145/81 (102) 94 11/24/19 17:30 96 18 140/70 (93) 96 11/24/19 17:15 103 20 137/63 (87) 97 11/24/19 17:00 102 19 136/67 (90) 97 11/24/19 16:45 103 17 133/56 (81) 96 11/24/19 16:30 98 19 150/72 (98) 96 11/24/19 16:15 102 19 138/61 (86) 97 11/24/19 16:00 108 11/24/19 16:00 40 11/24/19 16:00 Bi-pap 11/24/19 16:00 98.6 98 19 140/59 (86) 97 11/24/19 15:45 106 19 126/68 (87) 99 11/24/19 15:42 108 20 100 40 11/24/19 15:30 107 15 131/62 (85) 100 11/24/19 15:15 108 17 135/86 (102) 100 11/24/19 15:00 97.4 106 17 157/69 (98) 100 11/24/19 14:56 103 17 146/72 (96) 100 11/24/19 14:45 109 17 116/64 (81) 100 11/24/19 14:30 103 18 134/71 (92) 100 11/24/19 14:15 103 19 128/60 (82) 100 11/24/19 14:09 99 18 129/65 (86) 100 11/24/19 14:00 99 17 144/66 (92) 100 11/24/19 13:45 82/43 11/24/19 13:45 101 19 132/57 (82) 100 11/24/19 13:42 109 20 103/48 (66) 100 11/24/19 13:30 50 11/24/19 13:30 50 11/24/19 13:30 100 16 82/43 (56) 100 11/24/19 13:25 94.8 102 22 90/42 (58) 100 11/24/19 13:22 100 22 78/45 (56) 100 11/24/19 13:19 101 22 86/38 (54) 99 11/24/19 13:15 101 21 89/40 (56) 94 11/24/19 13:09 104 22 83/43 (56) 92 11/24/19 13:06 100 22 88/38 (55) 93 11/24/19 13:03 102 23 90/48 (62) 94 11/24/19 13:00 98 21 80/44 (56) 94 11/24/19 13:00 30 11/24/19 12:55 104 24 92 30 11/24/19 12:30 93 20 111/51 (71) 93 11/24/19 12:27 99 25 132/62 (85) 91 11/24/19 12:23 68 32 108/29 (55) 88 11/24/19 12:18 84 27 109/28 (55) 90 11/24/19 12:15 84 26 121/51 (74) 92 11/24/19 12:09 83 25 119/53 (75) 95 11/24/19 12:00 95.0 81 25 134/59 (84) 93 11/24/19 12:00 Bi-pap 11/24/19 10:02 72 20 100 Nasal Cannula 2.0 28 63 22 100 11/24/19 09:49 98.7 87 24 135/88 (104) 98 11/24/19 09:25 Nasal Cannula 2.0 11/24/19 09:13 Nasal Cannula 3.0 11/24/19 09:00 3.0 Intake and Output 11/24/19 11/25/19 19:00 07:00 Intake Total 1128.125 ml 1381.24 ml Output Total 1015 ml 10 ml Balance 113.125 ml 1371.24 ml IV Total 1128.125 ml 1381.24 ml Output Urine Total 15 ml 10 ml Hemodialysis UF 1000 ml Laboratory Tests 11/24/19 09:55: White Blood Count 30.5*H, Red Blood Count 3.56L, Hemoglobin 6.2*L, Hematocrit 22.2L, Mean Corpuscular Volume 62L, Mean Corpuscular Hemoglobin 17.4L, Mean Corpuscular Hemoglobin Concent 27.9L, Red Cell Distribution Width 17.4H, Platelet Count 385, Mean Platelet Volume 4.6L, Neutrophils (%) (Auto) , Lymphocytes (%) (Auto) , Monocytes (%) (Auto) , Eosinophils (%) (Auto) , Basophils (%) (Auto) , Differential Total Cells Counted 100, Neutrophils % ( Manual) 88H, Lymphocytes % (Manual) 5L, Monocytes % (Manual) 7, Eosinophils % ( Manual) 0, Basophils % (Manual) 0, Band Neutrophils 0, Platelet Estimate Adequate, Platelet Morphology Normal, Polychromasia 1+, Hypochromasia 1+, Anisocytosis 1+, Microcytosis 2+, Iron Level 7L, Total Iron Binding Capacity 239L, Percent Iron Saturation 3L, Unsaturated Iron Binding 232, Ferritin 86, Vitamin B12 Level > 2000H, Folate 6.8L 11/24/19 12:30: Arterial Blood pH 7.264L, Arterial Blood Partial Pressure CO2 39.8, Arterial Blood Partial Pressure O2 272.0H, Arterial Blood HCO3 17.6*L, Arterial Blood Oxygen Saturation 99.1, Arterial Blood Base Excess -8.6L, Lars Test Positive 11/24/19 14:00: Troponin I 0.000, Hepatitis B Surface Antigen [Pending] 11/24/19 14:26: Arterial Blood pH 7.461H, Arterial Blood Partial Pressure CO2 35.3, Arterial Blood Partial Pressure O2 116.3H, Arterial Blood HCO3 24.6, Arterial Blood Oxygen Saturation 98.0, Arterial Blood Base Excess 1.0, Lars Test Positive 11/24/19 19:15: White Blood Count 25.6*H, Red Blood Count 3.94L, Hemoglobin 8.3#L, Hematocrit 26.0L, Mean Corpuscular Volume 66L, Mean Corpuscular Hemoglobin 21.0L, Mean Corpuscular Hemoglobin Concent 31.8L, Red Cell Distribution Width 24.4H, Platelet Count 328, Mean Platelet Volume 5.0L, Neutrophils (%) (Auto) , Lymphocytes (%) (Auto) , Monocytes (%) (Auto) , Eosinophils (%) (Auto) , Basophils (%) (Auto) , Differential Total Cells Counted 100, Neutrophils % ( Manual) 89H, Lymphocytes % (Manual) 5L, Monocytes % (Manual) 5, Eosinophils % ( Manual) 1, Basophils % (Manual) 0, Band Neutrophils 0, Platelet Estimate Adequate, Platelet Morphology Normal, Polychromasia 1+, Hypochromasia 1+, Anisocytosis 2+, Microcytosis 1+, Prothrombin Time 12.7H, Prothromb Time International Ratio 1.2H, Activated Partial Thromboplast Time 34H 11/24/19 20:45: Sodium Level 145, Potassium Level 5.1, Chloride Level 105, Carbon Dioxide Level 25, Anion Gap 15, Blood Urea Nitrogen 89H, Creatinine 8.9H, Estimat Glomerular Filtration Rate 4.4, Glucose Level 113H, Calcium Level 8.1L, Troponin I 0.000 11/25/19 04:00: White Blood Count 23.7*H, Red Blood Count 3.71L, Hemoglobin 7.7L, Hematocrit 24.8L, Mean Corpuscular Volume 67L, Mean Corpuscular Hemoglobin 20.8L, Mean Corpuscular Hemoglobin Concent 31.1L, Red Cell Distribution Width 22.7H, Platelet Count 294, Mean Platelet Volume 5.0L, Neutrophils (%) (Auto) , Lymphocytes (%) (Auto) , Monocytes (%) (Auto) , Eosinophils (%) (Auto) , Basophils (%) (Auto) , Differential Total Cells Counted 100, Neutrophils % ( Manual) 90H, Lymphocytes % (Manual) 3L, Monocytes % (Manual) 7, Eosinophils % ( Manual) 0, Basophils % (Manual) 0, Band Neutrophils 0, Platelet Estimate Adequate, Platelet Morphology Normal, Polychromasia 1+, Hypochromasia 2+, Anisocytosis 3+, Microcytosis 2+, Sodium Level 146H, Potassium Level 5.2H, Chloride Level 105, Carbon Dioxide Level 28, Anion Gap 14, Blood Urea Nitrogen 91H, Creatinine 9.1H, Estimat Glomerular Filtration Rate 4.3, Glucose Level 146H , Calcium Level 7.4L, Troponin I 0.000, Nucleated Red Blood Cells 3, Uric Acid 10.3H, Phosphorus Level 7.9H, Magnesium Level 2.6H, Total Bilirubin 0.4, Gamma Glutamyl Transpeptidase 15, Aspartate Amino Transf (AST/SGOT) 67H, Alanine Aminotransferase (ALT/SGPT) 54, Alkaline Phosphatase 158H, Lactate Dehydrogenase 412H, Total Creatine Kinase 117, C-Reactive Protein, Quantitative 29.8H, Pro-B-Type Natriuretic Peptide 2276H, Total Protein 5.7L, Albumin 2.0L, Globulin 3.7, Albumin/Globulin Ratio 0.5L, Lipase 1021H, Thyroid Stimulating Hormone (TSH) 2.552, Hepatitis A IgM Antibody [Pending], Hepatitis B Surface Antigen [Pending], Hepatitis B Core IgM Antibody [Pending], Hepatitis C Antibody [Pending] 11/25/19 07:05: Arterial Blood pH 7.482H, Arterial Blood Partial Pressure CO2 34.5L, Arterial Blood Partial Pressure O2 73.6L, Arterial Blood HCO3 25.2, Arterial Blood Oxygen Saturation 93.1L, Arterial Blood Base Excess 1.8, Lars Test Positive Height (Feet): 5 Height (Inches): 4.00 Weight (Pounds): 225 General Appearance: confused EENT: normal ENT inspection Neck: supple Cardiovascular: normal rate Respiratory/Chest: decreased breath sounds Abdomen: normal bowel sounds, non tender, soft Extremities: non-tender Ministerio Davis MD Nov 25, 2019 08:23
--- NOTE | 2019-11-25 08:42 | Pulmonolgy Critical Care Note ---
Critical Care - Asmt/Plan Assessment/Plan: ASSESSMENT Sepsis Acute hypoxemic respiratory failure Acute toxic metabolic encephalopathy ( multifactorial due to ARF, sepsis) Acute renal failure Possible UTI Hyperkalemia Anemia Elevated lipase, possible pancreatitis Pelvic LAD Anasarca History of EtOH abuse Possible psychiatric disorder PLAN OF CARE ICU supplemental O2 titrate to keep sat above 92%, now on VM 40% fup with CXR and ABG resp status improved after HD pulm toilet as needed empiric abx per ID recs fup with CXR and ABG SCX if able hx of recent resp illness doubt PNA given clear CT chest SOB and resp distress most likely were to fluid overload 2 to acute renal failure, Venous Duplex BLE rapid COVID 19 11/23 x 2 - NGT rapid COVID 19 11/24 NGT BCX 11/23 NGTD abx as per ID recs ? UTI IVF with bicarb, further management of ARF and hyper K as per nephr- stable bicarb now ? dc bicarb IV per nephro management s/p HD via R fem temp HD catheter, placed by surgeon creat trending down monitor volumes ECHO cardiac monitoring-ST s/p 2 u PRBC monitor HH with goal to keep Hg above 7,s/p 2 u ORBC 11/23, Hgb rise initially, now trending down again, GI on case anemia w/up stool OB lipase with trend up, LFT slightly down; monitor NPO for now hep panel abd US, given enlarged lymph nodes thank you for consult case discussed and evaluated by supervising physician Critical Care - Objective Last 24 Hour Vital Signs Date Time Temp Pulse Resp B/P (MAP) Pulse Ox O2 Delivery O2 Flow Rate FiO2 11/25/19 07:00 106 30 121/55 (77) 95 11/25/19 06:30 106 29 121/65 (83) 97 11/25/19 06:00 99.7 105 30 116/54 (74) 97 11/25/19 05:30 106 32 124/66 (85) 97 11/25/19 05:00 107 28 115/61 (79) 97 11/25/19 04:30 107 33 130/59 (82) 97 11/25/19 04:00 99.9 100 27 121/55 (77) 96 11/25/19 04:00 Bi-pap 11/25/19 04:00 8.0 40 11/25/19 04:00 100 11/25/19 03:30 106 29 129/62 (84) 97 11/25/19 03:00 106 26 114/57 (76) 98 11/25/19 02:30 109 30 134/65 (88) 97 11/25/19 02:00 110 31 122/56 (78) 97 11/25/19 01:30 111 29 128/62 (84) 98 11/25/19 01:00 110 28 136/57 (83) 97 11/25/19 00:30 108 28 134/63 (86) 98 11/25/19 00:00 8.0 40 11/25/19 00:00 108 11/25/19 00:00 Bi-pap 11/25/19 00:00 108 31 137/70 (92) 98 11/24/19 23:03 107 32 97 40 11/24/19 23:00 103 29 133/80 (97) 98 11/24/19 22:00 102 27 128/68 (88) 96 11/24/19 21:30 110 28 138/65 (89) 96 11/24/19 21:00 110 31 133/73 (93) 97 11/24/19 20:30 107 30 138/72 (94) 97 11/24/19 20:00 Bi-pap 11/24/19 20:00 107 11/24/19 20:00 40 11/24/19 20:00 99.5 107 28 145/74 (97) 96 11/24/19 20:00 40 11/24/19 19:30 103 26 129/69 (89) 95 11/24/19 19:00 105 24 137/64 (88) 99 11/24/19 18:54 103 26 98 40 11/24/19 18:45 104 20 133/64 (87) 97 11/24/19 18:30 94 19 132/68 (89) 96 11/24/19 18:15 105 25 134/64 (87) 95 11/24/19 18:00 106 25 135/83 (100) 95 11/24/19 17:45 104 21 145/81 (102) 94 11/24/19 17:30 96 18 140/70 (93) 96 11/24/19 17:15 103 20 137/63 (87) 97 11/24/19 17:00 102 19 136/67 (90) 97 11/24/19 16:45 103 17 133/56 (81) 96 11/24/19 16:30 98 19 150/72 (98) 96 11/24/19 16:15 102 19 138/61 (86) 97 11/24/19 16:00 108 11/24/19 16:00 40 11/24/19 16:00 Bi-pap 11/24/19 16:00 98.6 98 19 140/59 (86) 97 11/24/19 15:45 106 19 126/68 (87) 99 11/24/19 15:42 108 20 100 40 11/24/19 15:30 107 15 131/62 (85) 100 11/24/19 15:15 108 17 135/86 (102) 100 11/24/19 15:00 97.4 106 17 157/69 (98) 100 11/24/19 14:56 103 17 146/72 (96) 100 11/24/19 14:45 109 17 116/64 (81) 100 11/24/19 14:30 103 18 134/71 (92) 100 11/24/19 14:15 103 19 128/60 (82) 100 11/24/19 14:09 99 18 129/65 (86) 100 11/24/19 14:00 99 17 144/66 (92) 100 11/24/19 13:45 82/43 11/24/19 13:45 101 19 132/57 (82) 100 11/24/19 13:42 109 20 103/48 (66) 100 11/24/19 13:30 50 11/24/19 13:30 50 11/24/19 13:30 100 16 82/43 (56) 100 11/24/19 13:25 94.8 102 22 90/42 (58) 100 11/24/19 13:22 100 22 78/45 (56) 100 11/24/19 13:19 101 22 86/38 (54) 99 11/24/19 13:15 101 21 89/40 (56) 94 11/24/19 13:09 104 22 83/43 (56) 92 11/24/19 13:06 100 22 88/38 (55) 93 11/24/19 13:03 102 23 90/48 (62) 94 11/24/19 13:00 98 21 80/44 (56) 94 11/24/19 13:00 30 11/24/19 12:55 104 24 92 30 11/24/19 12:30 93 20 111/51 (71) 93 11/24/19 12:27 99 25 132/62 (85) 91 11/24/19 12:23 68 32 108/29 (55) 88 11/24/19 12:18 84 27 109/28 (55) 90 11/24/19 12:15 84 26 121/51 (74) 92 11/24/19 12:09 83 25 119/53 (75) 95 11/24/19 12:00 95.0 81 25 134/59 (84) 93 11/24/19 12:00 Bi-pap 11/24/19 10:02 72 20 100 Nasal Cannula 2.0 28 63 22 100 11/24/19 09:49 98.7 87 24 135/88 (104) 98 11/24/19 09:25 Nasal Cannula 2.0 11/24/19 09:13 Nasal Cannula 3.0 11/24/19 09:00 3.0 Objective: General Appearance: Romanian speaking in NAD, anxious, obese and edematous female Lines, tubes and drains: peripheral, also CL via R femoral ->HD catheter HEENT: normocephalic, atraumatic, anicteric, mucous membranes moist Neck: non-tender, supple Respiratory/Chest: no accessory muscle use, crackles at bases Cardiovascular/Chest: normal peripheral pulses, normal rate, regular rhythm Abdomen: normal bowel sounds, soft - obese, non tender Extremities: normal range of motion, non-tender, no calf tenderness, +1 edema BLE Neurologic: no motor/sensory deficits, alert, responsive - confused Musculoskeletal: normal muscle bulk Micro: Microbiology Date/Time Source Procedure Growth Status 11/24/19 00:57 Blood Blood Culture - Preliminary NO GROWTH AFTER 24 HOURS Resulted 11/24/19 00:57 Blood Blood Culture - Preliminary NO GROWTH AFTER 24 HOURS Resulted 11/25/19 02:20 Nasopharynx SARS-CoV-2 RdRp Gene Assay - Final Complete 11/24/19 12:00 Nasopharynx SARS-CoV-2 RdRp Gene Assay - Final Complete 11/24/19 00:57 Nasopharynx SARS-CoV-2 RdRp Gene Assay - Final Complete Accucheck: 98 Critical Care - Subjective ROS Limited/Unobtainable: Yes Interval Events: low grade fevers, leukocytosis with some trend down on 40% VM, no resp distress s/p HD 11/23 with good improvement ABG this am noted, acidosis resolved creat trending down s/p 2 u PRBC denies CP, + occasional SOB; no cough Condition: critical IV Access: central - R femoral HD catheter FI02: 40 Vent Support Breath Rate: 12 Vent Support Mode: BiLevel Sputum Amount: None Fluids: D5W + 1 amp bicarb at 125 I&O: Intake and Output 11/24/19 11/25/19 19:00 07:00 Intake Total 1128.125 ml 1381.24 ml Output Total 1015 ml 10 ml Balance 113.125 ml 1371.24 ml IV Total 1128.125 ml 1381.24 ml Output Urine Total 15 ml 10 ml Hemodialysis UF 1000 ml CXR: Cardiomegaly and hypoventilatory chest. No acute superimposed findings noted Carlita Brewster CUSTOMER EXPERIENCE ANALYST Nov 25, 2019 08:42
[2019-11-25] MEDS ORDERED: D5 1/2NS 1,000 ML IV SCH (08:45)
[2019-11-25] MEDS: Pantoprazole Inj IVP SCH ×2 (09:25→21:49)
[2019-11-25] MEDS: Docusate 100mg cap ORAL SCH ×2 (09:25→13:16)
--- NOTE | 2019-11-25 09:34 | General Progress Note ---
Assessment/Plan Assessment/Plan: S, O: pt is delirious , poor historian, seen and examined in the ICU PHYSICAL EXAMINATION:HEAD AND NECK: Atraumatic and normocephalic. CHEST: Diffuse bronchial breathing sounds.HEART: S1 and S2. Regular rate and rhythm. ABDOMEN: Soft. No organomegaly. Protuberant. No tenderness. MUSCULOSKELETAL: Right inguinal HD- access noted, No gross lateralized motor deficit. It is limited examination as the patient is not cooperative. NEUROLOGIC: The patient is delirious. DIAGNOSTIC AND LABORATORY DATA: Imaging, dated November [address] scan of abdomen and pelvis, multiple lymph nodes in the pelvic area, mild bilateral hydronephrosis. Chest x-ray shows cardiomegaly, otherwise unremarkable. Labs, dated November 24 reviwed ASSESSMENT: 1. Severe sepsis. 2. PNA- Bilateral 3. Hypoxemic respiratory failure. 3. Hyperkalemia. 4. End-stage renal disease. 5. CHF, likely diagnosis. 6. Abnormal blood sugar. 7. Microcytic anemia. 8. GI and DVT prophylaxis. PLAN OF CARE: LE-Dupp[facility] notes form ID, Nephrology reviewed Subjective Allergies: Coded Allergies: No Known Allergies (Unverified , 11/24/19) Objective Last 24 Hour Vital Signs Date Time Temp Pulse Resp B/P (MAP) Pulse Ox O2 Delivery O2 Flow Rate FiO2 11/25/19 08:00 Bi-pap 11/25/19 08:00 8.0 40 11/25/19 08:00 99.4 105 28 128/64 (85) 97 11/25/19 07:00 106 30 121/55 (77) 95 11/25/19 06:30 106 29 121/65 (83) 97 11/25/19 06:00 99.7 105 30 116/54 (74) 97 11/25/19 05:30 106 32 124/66 (85) 97 11/25/19 05:00 107 28 115/61 (79) 97 11/25/19 04:30 107 33 130/59 (82) 97 11/25/19 04:00 99.9 100 27 121/55 (77) 96 11/25/19 04:00 Bi-pap 11/25/19 04:00 8.0 40 11/25/19 04:00 100 11/25/19 03:30 106 29 129/62 (84) 97 11/25/19 03:00 106 26 114/57 (76) 98 11/25/19 02:30 109 30 134/65 (88) 97 11/25/19 02:00 110 31 122/56 (78) 97 11/25/19 01:30 111 29 128/62 (84) 98 11/25/19 01:00 110 28 136/57 (83) 97 11/25/19 00:30 108 28 134/63 (86) 98 11/25/19 00:00 8.0 40 11/25/19 00:00 108 11/25/19 00:00 Bi-pap 11/25/19 00:00 108 31 137/70 (92) 98 11/24/19 23:03 107 32 97 40 11/24/19 23:00 103 29 133/80 (97) 98 11/24/19 22:00 102 27 128/68 (88) 96 11/24/19 21:30 110 28 138/65 (89) 96 11/24/19 21:00 110 31 133/73 (93) 97 11/24/19 20:30 107 30 138/72 (94) 97 11/24/19 20:00 Bi-pap 11/24/19 20:00 107 11/24/19 20:00 40 11/24/19 20:00 99.5 107 28 145/74 (97) 96 11/24/19 20:00 40 11/24/19 19:30 103 26 129/69 (89) 95 11/24/19 19:00 105 24 137/64 (88) 99 11/24/19 18:54 103 26 98 40 11/24/19 18:45 104 20 133/64 (87) 97 11/24/19 18:30 94 19 132/68 (89) 96 11/24/19 18:15 105 25 134/64 (87) 95 11/24/19 18:00 106 25 135/83 (100) 95 11/24/19 17:45 104 21 145/81 (102) 94 11/24/19 17:30 96 18 140/70 (93) 96 11/24/19 17:15 103 20 137/63 (87) 97 11/24/19 17:00 102 19 136/67 (90) 97 11/24/19 16:45 103 17 133/56 (81) 96 11/24/19 16:30 98 19 150/72 (98) 96 11/24/19 16:15 102 19 138/61 (86) 97 11/24/19 16:00 108 11/24/19 16:00 40 11/24/19 16:00 Bi-pap 11/24/19 16:00 98.6 98 19 140/59 (86) 97 11/24/19 15:45 106 19 126/68 (87) 99 11/24/19 15:42 108 20 100 40 11/24/19 15:30 107 15 131/62 (85) 100 11/24/19 15:15 108 17 135/86 (102) 100 11/24/19 15:00 97.4 106 17 157/69 (98) 100 11/24/19 14:56 103 17 146/72 (96) 100 11/24/19 14:45 109 17 116/64 (81) 100 11/24/19 14:30 103 18 134/71 (92) 100 11/24/19 14:15 103 19 128/60 (82) 100 11/24/19 14:09 99 18 129/65 (86) 100 11/24/19 14:00 99 17 144/66 (92) 100 11/24/19 13:45 82/43 11/24/19 13:45 101 19 132/57 (82) 100 11/24/19 13:42 109 20 103/48 (66) 100 11/24/19 13:30 50 11/24/19 13:30 50 11/24/19 13:30 100 16 82/43 (56) 100 11/24/19 13:25 94.8 102 22 90/42 (58) 100 11/24/19 13:22 100 22 78/45 (56) 100 11/24/19 13:19 101 22 86/38 (54) 99 11/24/19 13:15 101 21 89/40 (56) 94 11/24/19 13:09 104 22 83/43 (56) 92 11/24/19 13:06 100 22 88/38 (55) 93 11/24/19 13:03 102 23 90/48 (62) 94 11/24/19 13:00 98 21 80/44 (56) 94 11/24/19 13:00 30 11/24/19 12:55 104 24 92 30 11/24/19 12:30 93 20 111/51 (71) 93 11/24/19 12:27 99 25 132/62 (85) 91 11/24/19 12:23 68 32 108/29 (55) 88 11/24/19 12:18 84 27 109/28 (55) 90 11/24/19 12:15 84 26 121/51 (74) 92 11/24/19 12:09 83 25 119/53 (75) 95 11/24/19 12:00 95.0 81 25 134/59 (84) 93 11/24/19 12:00 Bi-pap 11/24/19 10:02 72 20 100 Nasal Cannula 2.0 28 63 22 100 11/24/19 09:49 98.7 87 24 135/88 (104) 98 Intake and Output 11/24/19 11/25/19 19:00 07:00 Intake Total 1128.125 ml 1381.24 ml Output Total 1015 ml 10 ml Balance 113.125 ml 1371.24 ml IV Total 1128.125 ml 1381.24 ml Output Urine Total 15 ml 10 ml Hemodialysis UF 1000 ml Laboratory Tests 11/24/19 09:55: White Blood Count 30.5*H, Red Blood Count 3.56L, Hemoglobin 6.2*L, Hematocrit 22.2L, Mean Corpuscular Volume 62L, Mean Corpuscular Hemoglobin 17.4L, Mean Corpuscular Hemoglobin Concent 27.9L, Red Cell Distribution Width 17.4H, Platelet Count 385, Mean Platelet Volume 4.6L, Neutrophils (%) (Auto) , Lymphocytes (%) (Auto) , Monocytes (%) (Auto) , Eosinophils (%) (Auto) , Basophils (%) (Auto) , Differential Total Cells Counted 100, Neutrophils % ( Manual) 88H, Lymphocytes % (Manual) 5L, Monocytes % (Manual) 7, Eosinophils % ( Manual) 0, Basophils % (Manual) 0, Band Neutrophils 0, Platelet Estimate Adequate, Platelet Morphology Normal, Polychromasia 1+, Hypochromasia 1+, Anisocytosis 1+, Microcytosis 2+, Iron Level 7L, Total Iron Binding Capacity 239L, Percent Iron Saturation 3L, Unsaturated Iron Binding 232, Ferritin 86, Vitamin B12 Level > 2000H, Folate 6.8L 11/24/19 12:30: Arterial Blood pH 7.264L, Arterial Blood Partial Pressure CO2 39.8, Arterial Blood Partial Pressure O2 272.0H, Arterial Blood HCO3 17.6*L, Arterial Blood Oxygen Saturation 99.1, Arterial Blood Base Excess -8.6L, Lars Test Positive 11/24/19 14:00: Troponin I 0.000, Hepatitis B Surface Antigen [Pending] 11/24/19 14:26: Arterial Blood pH 7.461H, Arterial Blood Partial Pressure CO2 35.3, Arterial Blood Partial Pressure O2 116.3H, Arterial Blood HCO3 24.6, Arterial Blood Oxygen Saturation 98.0, Arterial Blood Base Excess 1.0, Lars Test Positive 11/24/19 19:15: White Blood Count 25.6*H, Red Blood Count 3.94L, Hemoglobin 8.3#L, Hematocrit 26.0L, Mean Corpuscular Volume 66L, Mean Corpuscular Hemoglobin 21.0L, Mean Corpuscular Hemoglobin Concent 31.8L, Red Cell Distribution Width 24.4H, Platelet Count 328, Mean Platelet Volume 5.0L, Neutrophils (%) (Auto) , Lymphocytes (%) (Auto) , Monocytes (%) (Auto) , Eosinophils (%) (Auto) , Basophils (%) (Auto) , Differential Total Cells Counted 100, Neutrophils % ( Manual) 89H, Lymphocytes % (Manual) 5L, Monocytes % (Manual) 5, Eosinophils % ( Manual) 1, Basophils % (Manual) 0, Band Neutrophils 0, Platelet Estimate Adequate, Platelet Morphology Normal, Polychromasia 1+, Hypochromasia 1+, Anisocytosis 2+, Microcytosis 1+, Prothrombin Time 12.7H, Prothromb Time International Ratio 1.2H, Activated Partial Thromboplast Time 34H 11/24/19 20:45: Sodium Level 145, Potassium Level 5.1, Chloride Level 105, Carbon Dioxide Level 25, Anion Gap 15, Blood Urea Nitrogen 89H, Creatinine 8.9H, Estimat Glomerular Filtration Rate 4.4, Glucose Level 113H, Calcium Level 8.1L, Troponin I 0.000 11/25/19 04:00: White Blood Count 23.7*H, Red Blood Count 3.71L, Hemoglobin 7.7L, Hematocrit 24.8L, Mean Corpuscular Volume 67L, Mean Corpuscular Hemoglobin 20.8L, Mean Corpuscular Hemoglobin Concent 31.1L, Red Cell Distribution Width 22.7H, Platelet Count 294, Mean Platelet Volume 5.0L, Neutrophils (%) (Auto) , Lymphocytes (%) (Auto) , Monocytes (%) (Auto) , Eosinophils (%) (Auto) , Basophils (%) (Auto) , Differential Total Cells Counted 100, Neutrophils % ( Manual) 90H, Lymphocytes % (Manual) 3L, Monocytes % (Manual) 7, Eosinophils % ( Manual) 0, Basophils % (Manual) 0, Band Neutrophils 0, Platelet Estimate Adequate, Platelet Morphology Normal, Polychromasia 1+, Hypochromasia 2+, Anisocytosis 3+, Microcytosis 2+, Sodium Level 146H, Potassium Level 5.2H, Chloride Level 105, Carbon Dioxide Level 28, Anion Gap 14, Blood Urea Nitrogen 91H, Creatinine 9.1H, Estimat Glomerular Filtration Rate 4.3, Glucose Level 146H , Calcium Level 7.4L, Troponin I 0.000, Nucleated Red Blood Cells 3, Uric Acid 10.3H, Phosphorus Level 7.9H, Magnesium Level 2.6H, Total Bilirubin 0.4, Gamma Glutamyl Transpeptidase 15, Aspartate Amino Transf (AST/SGOT) 67H, Alanine Aminotransferase (ALT/SGPT) 54, Alkaline Phosphatase 158H, Lactate Dehydrogenase 412H, Total Creatine Kinase 117, C-Reactive Protein, Quantitative 29.8H, Pro-B-Type Natriuretic Peptide 2276H, Total Protein 5.7L, Albumin 2.0L, Globulin 3.7, Albumin/Globulin Ratio 0.5L, Lipase 1021H, Thyroid Stimulating Hormone (TSH) 2.552, Hepatitis A IgM Antibody [Pending], Hepatitis B Surface Antigen [Pending], Hepatitis B Core IgM Antibody [Pending], Hepatitis C Antibody [Pending] 11/25/19 07:05: Arterial Blood pH 7.482H, Arterial Blood Partial Pressure CO2 34.5L, Arterial Blood Partial Pressure O2 73.6L, Arterial Blood HCO3 25.2, Arterial Blood Oxygen Saturation 93.1L, Arterial Blood Base Excess 1.8, Lars Test Positive Height (Feet): 5 Height (Inches): 4.00 Weight (Pounds): 225 Rebecca Schroeder MD Nov 25, 2019 09:34
[2019-11-25] MEDS ORDERED: LORazepam Inj 2mg/ml 1ml IV PRN ×2 (10:45→18:45)
--- NOTE | 2019-11-25 10:49 | Nephrology Progress Note ---
Assessment/Plan Problem List: (1) ARF (acute renal failure) (2) Sepsis (3) CAP (community acquired pneumonia) (4) Hyperkalemia (5) Encephalopathy acute (6) Anemia (7) Alcohol abuse Assessment: Long history as per daughter (8) Serum lipase elevation (9) Obesity (BMI 30-39.9) Assessment Acute renal failure and hyperkalemia Most likely underlying chronic kidney disease Sepsis, pneumonia Toxic metabolic encephalopathy Severe anemia Morbid obesity Acute hypoxemic respiratory failure Elevated lipase possible pancreatitis Enlarged pelvic lymph nodes Anasarca History of EtOH abuse Possible psychiatric disorder Plan November 24: Patient was dialyzed yesterday. Serum potassium now within normal range. ABG improved. Discussed with RN. IV changed. Dialysis ordered again today. IV thiamine started. Ativan for agitation ordered. Recheck labs tomorrow. Continue per consultants. Amphojel as phosphorus binder also started. Previously: Anemia work-up ordered IV Venofer, subcu Epogen ordered Continue to monitor renal parameters Per orders Subjective ROS Limited/Unobtainable: No Constitutional: Reports: malaise, other - Agitated at times Objective Objective Last 24 Hour Vital Signs Date Time Temp Pulse Resp B/P (MAP) Pulse Ox O2 Delivery O2 Flow Rate FiO2 11/25/19 08:00 Bi-pap 11/25/19 08:00 8.0 40 11/25/19 08:00 99.4 105 28 128/64 (85) 97 11/25/19 07:00 106 30 121/55 (77) 95 11/25/19 06:30 106 29 121/65 (83) 97 11/25/19 06:00 99.7 105 30 116/54 (74) 97 11/25/19 05:30 106 32 124/66 (85) 97 11/25/19 05:00 107 28 115/61 (79) 97 11/25/19 04:30 107 33 130/59 (82) 97 11/25/19 04:00 99.9 100 27 121/55 (77) 96 11/25/19 04:00 Bi-pap 11/25/19 04:00 8.0 40 11/25/19 04:00 100 11/25/19 03:30 106 29 129/62 (84) 97 11/25/19 03:00 106 26 114/57 (76) 98 11/25/19 02:30 109 30 134/65 (88) 97 11/25/19 02:00 110 31 122/56 (78) 97 11/25/19 01:30 111 29 128/62 (84) 98 11/25/19 01:00 110 28 136/57 (83) 97 11/25/19 00:30 108 28 134/63 (86) 98 11/25/19 00:00 8.0 40 11/25/19 00:00 108 11/25/19 00:00 Bi-pap 11/25/19 00:00 108 31 137/70 (92) 98 11/24/19 23:03 107 32 97 40 11/24/19 23:00 103 29 133/80 (97) 98 11/24/19 22:00 102 27 128/68 (88) 96 11/24/19 21:30 110 28 138/65 (89) 96 11/24/19 21:00 110 31 133/73 (93) 97 11/24/19 20:30 107 30 138/72 (94) 97 11/24/19 20:00 Bi-pap 11/24/19 20:00 107 11/24/19 20:00 40 11/24/19 20:00 99.5 107 28 145/74 (97) 96 11/24/19 20:00 40 11/24/19 19:30 103 26 129/69 (89) 95 11/24/19 19:00 105 24 137/64 (88) 99 11/24/19 18:54 103 26 98 40 11/24/19 18:45 104 20 133/64 (87) 97 11/24/19 18:30 94 19 132/68 (89) 96 11/24/19 18:15 105 25 134/64 (87) 95 11/24/19 18:00 106 25 135/83 (100) 95 11/24/19 17:45 104 21 145/81 (102) 94 11/24/19 17:30 96 18 140/70 (93) 96 11/24/19 17:15 103 20 137/63 (87) 97 11/24/19 17:00 102 19 136/67 (90) 97 11/24/19 16:45 103 17 133/56 (81) 96 11/24/19 16:30 98 19 150/72 (98) 96 11/24/19 16:15 102 19 138/61 (86) 97 11/24/19 16:00 108 11/24/19 16:00 40 11/24/19 16:00 Bi-pap 11/24/19 16:00 98.6 98 19 140/59 (86) 97 11/24/19 15:45 106 19 126/68 (87) 99 11/24/19 15:42 108 20 100 40 11/24/19 15:30 107 15 131/62 (85) 100 11/24/19 15:15 108 17 135/86 (102) 100 11/24/19 15:00 97.4 106 17 157/69 (98) 100 11/24/19 14:56 103 17 146/72 (96) 100 11/24/19 14:45 109 17 116/64 (81) 100 11/24/19 14:30 103 18 134/71 (92) 100 11/24/19 14:15 103 19 128/60 (82) 100 11/24/19 14:09 99 18 129/65 (86) 100 11/24/19 14:00 99 17 144/66 (92) 100 11/24/19 13:45 82/43 11/24/19 13:45 101 19 132/57 (82) 100 11/24/19 13:42 109 20 103/48 (66) 100 11/24/19 13:30 50 11/24/19 13:30 50 11/24/19 13:30 100 16 82/43 (56) 100 11/24/19 13:25 94.8 102 22 90/42 (58) 100 11/24/19 13:22 100 22 78/45 (56) 100 11/24/19 13:19 101 22 86/38 (54) 99 11/24/19 13:15 101 21 89/40 (56) 94 11/24/19 13:09 104 22 83/43 (56) 92 11/24/19 13:06 100 22 88/38 (55) 93 11/24/19 13:03 102 23 90/48 (62) 94 11/24/19 13:00 98 21 80/44 (56) 94 11/24/19 13:00 30 11/24/19 12:55 104 24 92 30 11/24/19 12:30 93 20 111/51 (71) 93 11/24/19 12:27 99 25 132/62 (85) 91 11/24/19 12:23 68 32 108/29 (55) 88 11/24/19 12:18 84 27 109/28 (55) 90 11/24/19 12:15 84 26 121/51 (74) 92 11/24/19 12:09 83 25 119/53 (75) 95 11/24/19 12:00 95.0 81 25 134/59 (84) 93 11/24/19 12:00 Bi-pap Intake and Output 11/24/19 11/25/19 19:00 07:00 Intake Total 1128.125 ml 1381.24 ml Output Total 1015 ml 10 ml Balance 113.125 ml 1371.24 ml IV Total 1128.125 ml 1381.24 ml Output Urine Total 15 ml 10 ml Hemodialysis UF 1000 ml Current Medications Medications (Trade) Dose Ordered Sig/Brina Route PRN Reason Start Time Stop Time Status Last Admin Dose Admin Albuterol/ Ipratropium (Albuterol/ Ipratropium) 3 ml Q4H PRN HHN Shortness of Breath 11/24/19 09:15 11/29/19 09:14 Albuterol/ Ipratropium (Albuterol/ Ipratropium) 3 ml Q4HRT PRN HHN sob 11/24/19 08:15 11/29/19 08:14 11/24/19 10:10 Aluminum Hydroxide (Amphojel) 1,920 mg Q6H ORAL 11/25/19 10:00 12/25/19 09:59 Dextrose/Sodium Chloride 1,000 ml @ 75 mls/hr [id number] IV 11/25/19 08:45 12/25/19 08:44 11/25/19 09:24 Docusate Sodium (Colace) 100 mg THREE TIMES A DAY ORAL 11/25/19 09:00 12/25/19 08:59 11/25/19 09:25 Epoetin Zay (Epoetin Zay(ESRD on dialysis)) 10,000 unit TUE-WED-TUE SUBQ 11/26/19 21:00 02/24/20 20:59 Iron Sucrose 100 mg/Sodium Chloride 60 ml @ 240 mls/hr BEDTIME IV 11/25/19 21:00 11/29/19 21:14 Morphine Sulfate (Morphine Sulfate) 1 mg Q8H PRN IVP For Pain 11/24/19 09:15 12/01/19 09:14 Norepinephrine Bitartrate 250 ml @ 0 mls/hr Q24H IV 11/24/19 13:30 02/22/20 13:29 11/24/19 13:45 Pantoprazole (Protonix) 40 mg Q12HR IVP 11/24/19 21:00 12/24/19 10:59 11/25/19 09:25 Piperacillin Sod/ Tazobactam Sod 2.25 gm/Dextrose 55 ml @ 110 mls/hr Q8HR@0200,1000,1800 IV 11/24/19 10:00 12/01/19 09:59 11/25/19 01:00 Thiamine HCl 100 mg/Dextrose 56 ml @ 112 mls/hr Q24H IVPB 11/25/19 12:00 12/25/19 11:59 Laboratory Tests 11/24/19 12:30: Arterial Blood pH 7.264L, Arterial Blood Partial Pressure CO2 39.8, Arterial Blood Partial Pressure O2 272.0H, Arterial Blood HCO3 17.6*L, Arterial Blood Oxygen Saturation 99.1, Arterial Blood Base Excess -8.6L, Lars Test Positive 11/24/19 14:00: Troponin I 0.000, Hepatitis B Surface Antigen [Pending] 11/24/19 14:26: Arterial Blood pH 7.461H, Arterial Blood Partial Pressure CO2 35.3, Arterial Blood Partial Pressure O2 116.3H, Arterial Blood HCO3 24.6, Arterial Blood Oxygen Saturation 98.0, Arterial Blood Base Excess 1.0, Lars Test Positive 11/24/19 19:15: White Blood Count 25.6*H, Red Blood Count 3.94L, Hemoglobin 8.3#L, Hematocrit 26.0L, Mean Corpuscular Volume 66L, Mean Corpuscular Hemoglobin 21.0L, Mean Corpuscular Hemoglobin Concent 31.8L, Red Cell Distribution Width 24.4H, Platelet Count 328, Mean Platelet Volume 5.0L, Neutrophils (%) (Auto) , Lymphocytes (%) (Auto) , Monocytes (%) (Auto) , Eosinophils (%) (Auto) , Basophils (%) (Auto) , Differential Total Cells Counted 100, Neutrophils % ( Manual) 89H, Lymphocytes % (Manual) 5L, Monocytes % (Manual) 5, Eosinophils % ( Manual) 1, Basophils % (Manual) 0, Band Neutrophils 0, Platelet Estimate Adequate, Platelet Morphology Normal, Polychromasia 1+, Hypochromasia 1+, Anisocytosis 2+, Microcytosis 1+, Prothrombin Time 12.7H, Prothromb Time International Ratio 1.2H, Activated Partial Thromboplast Time 34H 11/24/19 20:45: Sodium Level 145, Potassium Level 5.1, Chloride Level 105, Carbon Dioxide Level 25, Anion Gap 15, Blood Urea Nitrogen 89H, Creatinine 8.9H, Estimat Glomerular Filtration Rate 4.4, Glucose Level 113H, Calcium Level 8.1L, Troponin I 0.000 11/25/19 04:00: Sodium Level 146H, Potassium Level 5.2H, Chloride Level 105, Carbon Dioxide Level 28, Anion Gap 14, Blood Urea Nitrogen 91H, Creatinine 9.1H, Estimat Glomerular Filtration Rate 4.3, Glucose Level 146H, Calcium Level 7.4L, Troponin I 0.000, White Blood Count 23.7*H, Red Blood Count 3.71L, Hemoglobin 7.7L, Hematocrit 24.8L, Mean Corpuscular Volume 67L, Mean Corpuscular Hemoglobin 20.8L, Mean Corpuscular Hemoglobin Concent 31.1L, Red Cell Distribution Width 22.7H, Platelet Count 294, Mean Platelet Volume 5.0L, Neutrophils (%) (Auto) , Lymphocytes (%) (Auto) , Monocytes (%) (Auto) , Eosinophils (%) (Auto) , Basophils (%) (Auto) , Differential Total Cells Counted 100, Neutrophils % (Manual) 90H, Lymphocytes % (Manual) 3L, Monocytes % (Manual) 7, Eosinophils % (Manual) 0, Basophils % (Manual) 0, Band Neutrophils 0 , Nucleated Red Blood Cells 3, Platelet Estimate Adequate, Platelet Morphology Normal, Polychromasia 1+, Hypochromasia 2+, Anisocytosis 3+, Microcytosis 2+, Uric Acid 10.3H, Phosphorus Level 7.9H, Magnesium Level 2.6H, Total Bilirubin 0.4, Gamma Glutamyl Transpeptidase 15, Aspartate Amino Transf (AST/SGOT) 67H, Alanine Aminotransferase (ALT/SGPT) 54, Alkaline Phosphatase 158H, Lactate Dehydrogenase 412H, Total Creatine Kinase 117, C-Reactive Protein, Quantitative 29.8H, Pro-B-Type Natriuretic Peptide 2276H, Total Protein 5.7L, Albumin 2.0L, Globulin 3.7, Albumin/Globulin Ratio 0.5L, Lipase 1021H, Thyroid Stimulating Hormone (TSH) 2.552, Hepatitis A IgM Antibody [Pending], Hepatitis B Surface Antigen [Pending], Hepatitis B Core IgM Antibody [Pending], Hepatitis C Antibody [Pending] 11/25/19 07:05: Arterial Blood pH 7.482H, Arterial Blood Partial Pressure CO2 34.5L, Arterial Blood Partial Pressure O2 73.6L, Arterial Blood HCO3 25.2, Arterial Blood Oxygen Saturation 93.1L, Arterial Blood Base Excess 1.8, Lars Test Positive Height (Feet): 5 Height (Inches): 4.00 Weight (Pounds): 225 General Appearance: mild distress Cardiovascular: tachycardia Respiratory/Chest: decreased breath sounds Abdomen: distended Objective No other change Jean-Pierre Garcia MD Nov 25, 2019 10:49
[2019-11-25] MEDS: Aluminum Hydroxide Gel Susp 15ml ORAL SCH ×3 (11:07→21:47)
[2019-11-25] MEDS ORDERED: Thiamine HCl 100 MG in D5W 55 ML IVPB SCH (12:00)
--- NOTE | 2019-11-25 12:29 | Consultation ---
History of Present Illness General Date patient seen: Nov 25, 2019 Chief Complaint: Dyspnea/Respdistress Referring physician: Dr Schroeder Reason for Consultation: resp failure, PNA Present Illness HPI This is a 69-year-old female who presents with chief complaint of shortness of breath and respiratory distress. Patient is a very poor historian. Her daughter called 911 because patient been weak and coughing and shortness of breath. According to her daughter, patient has a history of alcohol abuse and probably undiagnosed psychiatric disorder. She has a history of alcohol abuse. No drug use. Daughter said that patient is a hoarder and also get very anxious and paranoid. She refused to go to the doctors. She has diarrhea and vomiting about a week ago. Also been increasing cough. Was very weak. She is unable to get up on the floor. Per EMS, when they got there her oxygenation was 79% on room air. Patient says she felt better now since she is on oxygen. Unknown medical history. Admitted to intensive care unit hyperkalemia septic and required emergency hemodialysis. Temporary HD line placed and surgery called to evaluate assist with care and ongoing monitoring of care and septic work-up and planning. Patient seen patient evaluate chart reviewed. Remains significantly septic potassium improved dialysis ongoing Allergies: Coded Allergies: No Known Allergies (Unverified , 11/24/19) Medication History No Active Prescriptions or Reported Meds Patient History Limited by: medical condition History Provided By: Medical Record, PMD Healthcare decision maker Resuscitation status Advanced Directive on File Past Medical/Surgical History Past Medical/Surgical History: (1) Anemia (2) Encephalopathy acute (3) Acute respiratory failure with hypoxia (4) Hyperkalemia (5) Sepsis (6) ARF (acute renal failure) (7) CAP (community acquired pneumonia) (8) Serum lipase elevation (9) Obesity (BMI 30-39.9) Review of Systems ROS Narrative Unable to obtain given patient's current medical condition Physical Exam General Appearance: mild distress Lines, tubes and drains: central line, dialysis access HEENT: anicteric, mucous membranes moist Neck: supple, normal inspection, other Respiratory/Chest: no respiratory distress, no accessory muscle use, decreased breath sounds Abdomen: soft, no organomegaly, no mass Extremities: normal range of motion, non-tender, normal inspection, no calf tenderness, trace edema Skin Exam: warm/dry Neurologic: no motor/sensory deficits Last 24 Hour Vital Signs Date Time Temp Pulse Resp B/P (MAP) Pulse Ox O2 Delivery O2 Flow Rate FiO2 11/25/19 11:00 95 25 111/58 (75) 97 11/25/19 10:00 104 25 118/62 (80) 97 11/25/19 09:00 105 26 126/65 (85) 98 11/25/19 08:00 Bi-pap 11/25/19 08:00 8.0 40 11/25/19 08:00 99.4 105 28 128/64 (85) 97 11/25/19 07:00 106 30 121/55 (77) 95 11/25/19 06:30 106 29 121/65 (83) 97 11/25/19 06:00 99.7 105 30 116/54 (74) 97 11/25/19 05:30 106 32 124/66 (85) 97 11/25/19 05:00 107 28 115/61 (79) 97 11/25/19 04:30 107 33 130/59 (82) 97 11/25/19 04:00 99.9 100 27 121/55 (77) 96 11/25/19 04:00 Bi-pap 11/25/19 04:00 8.0 40 11/25/19 04:00 100 11/25/19 03:30 106 29 129/62 (84) 97 11/25/19 03:00 106 26 114/57 (76) 98 11/25/19 02:30 109 30 134/65 (88) 97 11/25/19 02:00 110 31 122/56 (78) 97 11/25/19 01:30 111 29 128/62 (84) 98 11/25/19 01:00 110 28 136/57 (83) 97 11/25/19 00:30 108 28 134/63 (86) 98 11/25/19 00:00 8.0 40 11/25/19 00:00 108 11/25/19 00:00 Bi-pap 11/25/19 00:00 108 31 137/70 (92) 98 11/24/19 23:03 107 32 97 40 11/24/19 23:00 103 29 133/80 (97) 98 11/24/19 22:00 102 27 128/68 (88) 96 11/24/19 21:30 110 28 138/65 (89) 96 7/25/20 21:00 110 31 133/73 (93) 97 11/24/19 20:30 107 30 138/72 (94) 97 11/24/19 20:00 Bi-pap 11/24/19 20:00 107 11/24/19 20:00 40 11/24/19 20:00 99.5 107 28 145/74 (97) 96 11/24/19 20:00 40 11/24/19 19:30 103 26 129/69 (89) 95 11/24/19 19:00 105 24 137/64 (88) 99 11/24/19 18:54 103 26 98 40 11/24/19 18:45 104 20 133/64 (87) 97 11/24/19 18:30 94 19 132/68 (89) 96 11/24/19 18:15 105 25 134/64 (87) 95 11/24/19 18:00 106 25 135/83 (100) 95 11/24/19 17:45 104 21 145/81 (102) 94 11/24/19 17:30 96 18 140/70 (93) 96 11/24/19 17:15 103 20 137/63 (87) 97 11/24/19 17:00 102 19 136/67 (90) 97 11/24/19 16:45 103 17 133/56 (81) 96 11/24/19 16:30 98 19 150/72 (98) 96 11/24/19 16:15 102 19 138/61 (86) 97 11/24/19 16:00 108 11/24/19 16:00 40 11/24/19 16:00 Bi-pap 11/24/19 16:00 98.6 98 19 140/59 (86) 97 11/24/19 15:45 106 19 126/68 (87) 99 11/24/19 15:42 108 20 100 40 11/24/19 15:30 107 15 131/62 (85) 100 11/24/19 15:15 108 17 135/86 (102) 100 11/24/19 15:00 97.4 106 17 157/69 (98) 100 11/24/19 14:56 103 17 146/72 (96) 100 11/24/19 14:45 109 17 116/64 (81) 100 11/24/19 14:30 103 18 134/71 (92) 100 11/24/19 14:15 103 19 128/60 (82) 100 11/24/19 14:09 99 18 129/65 (86) 100 11/24/19 14:00 99 17 144/66 (92) 100 11/24/19 13:45 82/43 11/24/19 13:45 101 19 132/57 (82) 100 11/24/19 13:42 109 20 103/48 (66) 100 11/24/19 13:30 50 11/24/19 13:30 50 11/24/19 13:30 100 16 82/43 (56) 100 11/24/19 13:25 94.8 102 22 90/42 (58) 100 11/24/19 13:22 100 22 78/45 (56) 100 11/24/19 13:19 101 22 86/38 (54) 99 11/24/19 13:15 101 21 89/40 (56) 94 11/24/19 13:09 104 22 83/43 (56) 92 11/24/19 13:06 100 22 88/38 (55) 93 11/24/19 13:03 102 23 90/48 (62) 94 11/24/19 13:00 98 21 80/44 (56) 94 11/24/19 13:00 30 11/24/19 12:55 104 24 92 30 11/24/19 12:30 93 20 111/51 (71) 93 11/24/19 12:27 99 25 132/62 (85) 91 Intake and Output 11/24/19 11/25/19 19:00 07:00 Intake Total 1128.125 ml 1381.24 ml Output Total 1015 ml 10 ml Balance 113.125 ml 1371.24 ml IV Total 1128.125 ml 1381.24 ml Output Urine Total 15 ml 10 ml Hemodialysis UF 1000 ml Laboratory Tests Test 11/24/19 12:30 11/24/19 14:00 11/24/19 14:26 11/24/19 19:15 Arterial Blood pH 7.264 (7.350-7.450) 7.461 (7.350-7.450) Arterial Blood Partial Pressure CO2 39.8 mmHg (35.0-45.0) 35.3 mmHg (35.0-45.0) Arterial Blood Partial Pressure O2 272.0 mmHg (75.0-100.0) H 116.3 mmHg (75.0-100.0) H Arterial Blood HCO3 17.6 mmol/L (22.0-26.0) *L 24.6 mmol/L (22.0-26.0) Arterial Blood Oxygen Saturation 99.1 % (95-100) 98.0 % (95-100) Arterial Blood Base Excess -8.6 (-2-2) L 1.0 (-2-2) Lars Test Positive Positive Troponin I 0.000 ng/mL (0.000-0.056) Hepatitis B Surface Antigen Pending White Blood Count 25.6 K/UL (4.8-10.8) *H Red Blood Count 3.94 M/UL (4.20-5.40) L Hemoglobin 8.3 G/DL (12.0-16.0) #L Hematocrit 26.0 % (37.0-47.0) L Mean Corpuscular Volume 66 FL (80-99) L Mean Corpuscular Hemoglobin 21.0 PG (27.0-31.0) L Mean Corpuscular Hemoglobin Concent 31.8 G/DL (32.0-36.0) L Red Cell Distribution Width 24.4 % (11.6-14.8) H Platelet Count 328 K/UL (150-450) Mean Platelet Volume 5.0 FL (6.5-10.1) L Neutrophils (%) (Auto) % (45.0-75.0) Lymphocytes (%) (Auto) % (20.0-45.0) Monocytes (%) (Auto) % (1.0-10.0) Eosinophils (%) (Auto) % (0.0-3.0) Basophils (%) (Auto) % (0.0-2.0) Differential Total Cells Counted 100 Neutrophils % (Manual) 89 % (45-75) H Lymphocytes % (Manual) 5 % (20-45) L Monocytes % (Manual) 5 % (1-10) Eosinophils % (Manual) 1 % (0-3) Basophils % (Manual) 0 % (0-2) Band Neutrophils 0 % (0-8) Platelet Estimate Adequate Platelet Morphology Normal Polychromasia 1+ Hypochromasia 1+ Anisocytosis 2+ Microcytosis 1+ Prothrombin Time 12.7 SEC (9.30-11.50) H Prothromb Time International Ratio 1.2 (0.9-1.1) H Activated Partial Thromboplast Time 34 SEC (23-33) H Test 11/24/19 20:45 11/25/19 04:00 11/25/19 07:05 Sodium Level 145 MMOL/L (136-145) 146 MMOL/L (136-145) H Potassium Level 5.1 MMOL/L (3.5-5.1) 5.2 MMOL/L (3.5-5.1) H Chloride Level 105 MMOL/L (98-107) 105 MMOL/L (98-107) Carbon Dioxide Level 25 MMOL/L (21-32) 28 MMOL/L (21-32) Anion Gap 15 mmol/L (5-15) 14 mmol/L (5-15) Blood Urea Nitrogen 89 mg/dL (7-18) H 91 mg/dL (7-18) H Creatinine 8.9 MG/DL (0.55-1.30) H 9.1 MG/DL (0.55-1.30) H Estimat Glomerular Filtration Rate 4.4 mL/min (>60) 4.3 mL/min (>60) Glucose Level 113 MG/DL (74-106) H 146 MG/DL (74-106) H Calcium Level 8.1 MG/DL (8.5-10.1) L 7.4 MG/DL (8.5-10.1) L Troponin I 0.000 ng/mL (0.000-0.056) 0.000 ng/mL (0.000-0.056) White Blood Count 23.7 K/UL (4.8-10.8) *H Red Blood Count 3.71 M/UL (4.20-5.40) L Hemoglobin 7.7 G/DL (12.0-16.0) L Hematocrit 24.8 % (37.0-47.0) L Mean Corpuscular Volume 67 FL (80-99) L Mean Corpuscular Hemoglobin 20.8 PG (27.0-31.0) L Mean Corpuscular Hemoglobin Concent 31.1 G/DL (32.0-36.0) L Red Cell Distribution Width 22.7 % (11.6-14.8) H Platelet Count 294 K/UL (150-450) Mean Platelet Volume 5.0 FL (6.5-10.1) L Neutrophils (%) (Auto) % (45.0-75.0) Lymphocytes (%) (Auto) % (20.0-45.0) Monocytes (%) (Auto) % (1.0-10.0) Eosinophils (%) (Auto) % (0.0-3.0) Basophils (%) (Auto) % (0.0-2.0) Differential Total Cells Counted 100 Neutrophils % (Manual) 90 % (45-75) H Lymphocytes % (Manual) 3 % (20-45) L Monocytes % (Manual) 7 % (1-10) Eosinophils % (Manual) 0 % (0-3) Basophils % (Manual) 0 % (0-2) Band Neutrophils 0 % (0-8) Nucleated Red Blood Cells 3 /100 WBC Platelet Estimate Adequate Platelet Morphology Normal Polychromasia 1+ Hypochromasia 2+ Anisocytosis 3+ Microcytosis 2+ Uric Acid 10.3 MG/DL (2.6-7.2) H Phosphorus Level 7.9 MG/DL (2.5-4.9) H Magnesium Level 2.6 MG/DL (1.8-2.4) H Total Bilirubin 0.4 MG/DL (0.2-1.0) Gamma Glutamyl Transpeptidase 15 U/L (5-85) Aspartate Amino Transf (AST/SGOT) 67 U/L (15-37) H Alanine Aminotransferase (ALT/SGPT) 54 U/L (12-78) Alkaline Phosphatase 158 U/L (46-116) H Lactate Dehydrogenase 412 U/L (81-234) H Total Creatine Kinase 117 U/L (26-308) C-Reactive Protein, Quantitative 29.8 mg/dL (0.00-0.90) H Pro-B-Type Natriuretic Peptide 2276 pg/mL (0-125) H Total Protein 5.7 G/DL (6.4-8.2) L Albumin 2.0 G/DL (3.4-5.0) L Globulin 3.7 g/dL Albumin/Globulin Ratio 0.5 (1.0-2.7) L Lipase 1021 U/L (73-393) H Thyroid Stimulating Hormone (TSH) 2.552 uiU/mL (0.358-3.740) Hepatitis A IgM Antibody Pending Hepatitis B Surface Antigen Pending Hepatitis B Core IgM Antibody Pending Hepatitis C Antibody Pending Arterial Blood pH 7.482 (7.350-7.450) Arterial Blood Partial Pressure CO2 34.5 mmHg (35.0-45.0) L Arterial Blood Partial Pressure O2 73.6 mmHg (75.0-100.0) L Arterial Blood HCO3 25.2 mmol/L (22.0-26.0) Arterial Blood Oxygen Saturation 93.1 % (95-100) L Arterial Blood Base Excess 1.8 (-2-2) Lars Test Positive Microbiology Date/Time Source Procedure Growth Status 11/25/19 02:20 Nasopharynx SARS-CoV-2 RdRp Gene Assay - Final Complete Height (Feet): 5 Height (Inches): 4.00 Weight (Pounds): 225 Medications Current Medications Medications (Trade) Dose Ordered Sig/Brina Route PRN Reason Start Time Stop Time Status Last Admin Dose Admin Albuterol/ Ipratropium (Albuterol/ Ipratropium) 3 ml Q4H PRN HHN Shortness of Breath 11/24/19 09:15 11/29/19 09:14 Albuterol/ Ipratropium (Albuterol/ Ipratropium) 3 ml Q4HRT PRN HHN sob 11/24/19 08:15 11/29/19 08:14 11/24/19 10:10 Aluminum Hydroxide (Amphojel) 1,920 mg Q6H ORAL 11/25/19 10:00 12/25/19 09:59 11/25/19 11:07 Dextrose/Sodium Chloride 1,000 ml @ 75 mls/hr [id number] IV 11/25/19 08:45 12/25/19 08:44 11/25/19 09:24 Docusate Sodium (Colace) 100 mg THREE TIMES A DAY ORAL 11/25/19 09:00 12/25/19 08:59 11/25/19 09:25 Epoetin Zay (Epoetin Zay(ESRD on dialysis)) 10,000 unit TUE-TUE-TUE SUBQ 11/26/19 21:00 02/24/20 20:59 Iron Sucrose 100 mg/Sodium Chloride 60 ml @ 240 mls/hr BEDTIME IV 11/25/19 21:00 11/29/19 21:14 Lorazepam (Ativan 2mg/ml 1ml) 1 mg Q4H PRN IV For Anxiety 11/25/19 10:45 12/02/19 10:44 Morphine Sulfate (Morphine Sulfate) 1 mg Q8H PRN IVP For Pain 11/24/19 09:15 12/01/19 09:14 Norepinephrine Bitartrate 250 ml @ 0 mls/hr Q24H IV 11/24/19 13:30 02/22/20 13:29 11/24/19 13:45 Pantoprazole (Protonix) 40 mg Q12HR IVP 11/24/19 21:00 12/24/19 10:59 11/25/19 09:25 Piperacillin Sod/ Tazobactam Sod 2.25 gm/Dextrose 55 ml @ 110 mls/hr Q8HR@0200,1000,1800 IV 11/24/19 10:00 12/01/19 09:59 11/25/19 11:07 Thiamine HCl 100 mg/Dextrose 56 ml @ 112 mls/hr Q24H IVPB 11/25/19 12:00 12/25/19 11:59 Assessment/Plan Problem List: (1) Anemia ICD Codes: D64.9 - Anemia, unspecified SNOMED: 362049320, 090574836 Qualifiers: Qualified Codes: D64.9 - Anemia, unspecified (2) Encephalopathy acute ICD Codes: G93.40 - Encephalopathy, unspecified SNOMED: 89722459, 905982549 (3) Acute respiratory failure with hypoxia ICD Codes: J96.01 - Acute respiratory failure with hypoxia SNOMED: 93884596, 293848295 (4) Hyperkalemia ICD Codes: E87.5 - Hyperkalemia SNOMED: 84224154, 248433269 (5) Sepsis Assessment & Plan: Leukocytosis anemia hyperkalemia abnormal labs HD catheter placed received dialysis and slowly potassium improved. Plan for repeat dialysis ordered. IV antibiotics per infectious disease Patient is alert awake but confused. Slowly improving No hematoma or bleeding identified Site looks clean We will continue with HD on a sure if renal function will improve may need permacath CT reviewed edema noted lymph nodes noted likely reactive Thank you for let me participate patient's care with follow with recommendations ABDOMEN: Liver: Unremarkable. Gallbladder and bile ducts: Unremarkable. No calcified stones. No ductal dilation. Pancreas: Unremarkable. No ductal dilation. Spleen: Unremarkable. No splenomegaly. Adrenals: Unremarkable. No mass. Kidneys and ureters: Bilateral low-grade hydronephrosis. No radiopaque stones in the urinary tract identified except for nonobstructing 3 mm stone in the inferior pole left kidney. Stomach and bowel: Scattered colonic diverticuli. No obstruction. No mucosal thickening. PELVIS: Appendix: No findings to suggest acute appendicitis. Bladder: The urinary bladder is decompressed by an indwelling Kaminski catheter No stones. Reproductive: Unremarkable as visualized. ABDOMEN and PELVIS: Intraperitoneal space: Unremarkable. No free air. No significant fluid collection. Bones/joints: No acute fracture. No dislocation. Soft tissues: Anasarca. Vasculature: Unremarkable. No abdominal aortic aneurysm. Lymph nodes: Enlarged left superficial inguinal lymph node measuring 2 cm short axis There are bilateral enlarged external iliac lymph nodes, measuring 2.9 cm x 5.1 cm on the left and 2.7 x 2.0 cm on the right. Other findings: Beam hardening from patient's abdominal girth degrades detail. IMPRESSION: 1. Enlarged pelvic lymph nodes could reflect reactive changes from cellulitis in the setting of generalized bony wall edema, or other acute inflammatory changes but neoplasm such as lymphomas not excluded. Correlate clinically. Ultrasound of the pelvis could be considered to help distinguish patient's ovaries from presumed pelvic adenopathy. 2. Mild bilateral hydronephrosis, with a Kaminski catheter in the urinary bladder. Correlate with bladder catheter function. ICD Codes: A41.9 - Sepsis, unspecified organism SNOMED: 46439688, 033562594 Qualifiers: Qualified Codes: A41.9 - Sepsis, unspecified organism; R65.20 - Severe sepsis without septic shock; N17.9 - Acute kidney failure, unspecified (6) ARF (acute renal failure) ICD Codes: N17.9 - Acute kidney failure, unspecified SNOMED: 11467684, 584226746 Qualifiers: Qualified Codes: N17.9 - Acute kidney failure, unspecified (7) CAP (community acquired pneumonia) ICD Codes: J18.9 - Pneumonia, unspecified organism SNOMED: 013935340, 313399299 Qualifiers: Qualified Codes: J18.9 - Pneumonia, unspecified organism (8) Serum lipase elevation ICD Codes: R74.8 - Abnormal levels of other serum enzymes SNOMED: 898688973 (9) Obesity (BMI 30-39.9) ICD Codes: E66.9 - Obesity, unspecified SNOMED: 966603142, 649887609 Angelo Naik Nov 25, 2019 12:29
[2019-11-25] MEDS: Norepinephrine 4mg/NS Premix 250 ML IV SCH (13:17)
[2019-11-25] MEDS: D5 1/2NS 1,000 ML IV SCH (18:30)
[2019-11-25] MEDS ORDERED: Morphine Sulfate 2mg/ml Inj(IV/IM USE ONLY) IVP PRN (18:30)
[2019-11-25] MEDS ORDERED: Albuterol/Ipratropium 3ml neb HHN PRN ×2 (18:30→19:00)
[2019-11-25] MEDS ORDERED: Iron Sucrose 100 MG in NS 55 ML IV SCH (21:00)
[2019-11-25] MEDS ORDERED: Dyna-Hex 2% Top Sol 2oz TOPIC SCH (21:15)
[2019-11-25] MEDS: Iron Sucrose 100 MG in NS 55 ML IV SCH (21:49)
--- NOTE | 2019-11-25 23:57 | Cardiology Progress Note ---
Assessment/Plan Assessment/Plan 1. Acute diastolic congestive heart failure, aggressive hemodialysis for decrease of preload. 2. Hyperkalemia, resolved. 3. Alcohol abuse. 4. Acute kidney injury. 5. Dyslipidemia with low HDL. Subjective Subjective Sinus rhythm at rate of 91. Bipap mask, FIO2 of 50%. Objective Last 24 Hour Vital Signs Date Time Temp Pulse Resp B/P (MAP) Pulse Ox O2 Delivery O2 Flow Rate FiO2 11/25/19 23:23 91 17 99 50 11/25/19 20:00 50 11/25/19 20:00 97.0 83 21 107/65 (79) 99 11/25/19 20:00 Bi-pap 11/25/19 20:00 86 11/25/19 19:45 96 35 95 50 11/25/19 19:09 98 Venturi Mask 8.0 40 11/25/19 17:00 98.3 11/25/19 17:00 83 21 144/70 (94) 96 11/25/19 16:00 98 21 115/76 (89) 98 11/25/19 16:00 8.0 40 11/25/19 16:00 Bi-pap 11/25/19 15:46 98 11/25/19 15:00 89 29 135/61 (85) 96 11/25/19 14:00 99 26 127/56 (79) 96 11/25/19 13:17 119/56 11/25/19 13:00 97 22 119/56 (77) 97 11/25/19 12:00 99.3 106 33 130/58 (82) 97 11/25/19 12:00 8.0 40 11/25/19 12:00 Bi-pap 11/25/19 11:48 105 11/25/19 11:00 95 25 111/58 (75) 97 11/25/19 10:00 104 25 118/62 (80) 97 11/25/19 09:00 105 26 126/65 (85) 98 11/25/19 08:00 Bi-pap 11/25/19 08:00 8.0 40 11/25/19 08:00 99.4 105 28 128/64 (85) 97 11/25/19 07:52 106 11/25/19 07:05 97 Venturi Mask 8.0 40 11/25/19 07:00 106 30 121/55 (77) 95 11/25/19 06:30 106 29 121/65 (83) 97 11/25/19 06:00 99.7 105 30 116/54 (74) 97 11/25/19 05:30 106 32 124/66 (85) 97 11/25/19 05:00 107 28 115/61 (79) 97 11/25/19 04:30 107 33 130/59 (82) 97 11/25/19 04:00 99.9 100 27 121/55 (77) 96 11/25/19 04:00 Bi-pap 11/25/19 04:00 8.0 40 11/25/19 04:00 100 11/25/19 03:30 106 29 129/62 (84) 97 11/25/19 03:00 106 26 114/57 (76) 98 11/25/19 02:30 109 30 134/65 (88) 97 11/25/19 02:00 110 31 122/56 (78) 97 11/25/19 01:30 111 29 128/62 (84) 98 11/25/19 01:00 110 28 136/57 (83) 97 11/25/19 00:30 108 28 134/63 (86) 98 11/25/19 00:00 8.0 40 11/25/19 00:00 108 11/25/19 00:00 Bi-pap 11/25/19 00:00 108 31 137/70 (92) 98 Intake and Output 11/24/19 11/25/19 19:00 07:00 Intake Total 1128.125 ml 1381.24 ml Output Total 1015 ml 10 ml Balance 113.125 ml 1371.24 ml IV Total 1128.125 ml 1381.24 ml Output Urine Total 15 ml 10 ml Hemodialysis UF 1000 ml 2D Echo: LVEF 65%, RVSP 58 mmHg, Grade I LVDD Laboratory Tests Test 11/25/19 04:00 11/25/19 07:05 White Blood Count 23.7 K/UL (4.8-10.8) *H Red Blood Count 3.71 M/UL (4.20-5.40) L Hemoglobin 7.7 G/DL (12.0-16.0) L Hematocrit 24.8 % (37.0-47.0) L Mean Corpuscular Volume 67 FL (80-99) L Mean Corpuscular Hemoglobin 20.8 PG (27.0-31.0) L Mean Corpuscular Hemoglobin Concent 31.1 G/DL (32.0-36.0) L Red Cell Distribution Width 22.7 % (11.6-14.8) H Platelet Count 294 K/UL (150-450) Mean Platelet Volume 5.0 FL (6.5-10.1) L Neutrophils (%) (Auto) % (45.0-75.0) Lymphocytes (%) (Auto) % (20.0-45.0) Monocytes (%) (Auto) % (1.0-10.0) Eosinophils (%) (Auto) % (0.0-3.0) Basophils (%) (Auto) % (0.0-2.0) Differential Total Cells Counted 100 Neutrophils % (Manual) 90 % (45-75) H Lymphocytes % (Manual) 3 % (20-45) L Monocytes % (Manual) 7 % (1-10) Eosinophils % (Manual) 0 % (0-3) Basophils % (Manual) 0 % (0-2) Band Neutrophils 0 % (0-8) Nucleated Red Blood Cells 3 /100 WBC Platelet Estimate Adequate Platelet Morphology Normal Polychromasia 1+ Hypochromasia 2+ Anisocytosis 3+ Microcytosis 2+ Sodium Level 146 MMOL/L (136-145) H Potassium Level 5.2 MMOL/L (3.5-5.1) H Chloride Level 105 MMOL/L (98-107) Carbon Dioxide Level 28 MMOL/L (21-32) Anion Gap 14 mmol/L (5-15) Blood Urea Nitrogen 91 mg/dL (7-18) H Creatinine 9.1 MG/DL (0.55-1.30) H Estimat Glomerular Filtration Rate 4.3 mL/min (>60) Glucose Level 146 MG/DL (74-106) H Uric Acid 10.3 MG/DL (2.6-7.2) H Calcium Level 7.4 MG/DL (8.5-10.1) L Phosphorus Level 7.9 MG/DL (2.5-4.9) H Magnesium Level 2.6 MG/DL (1.8-2.4) H Total Bilirubin 0.4 MG/DL (0.2-1.0) Gamma Glutamyl Transpeptidase 15 U/L (5-85) Aspartate Amino Transf (AST/SGOT) 67 U/L (15-37) H Alanine Aminotransferase (ALT/SGPT) 54 U/L (12-78) Alkaline Phosphatase 158 U/L (46-116) H Lactate Dehydrogenase 412 U/L (81-234) H Total Creatine Kinase 117 U/L (26-308) Troponin I 0.000 ng/mL (0.000-0.056) C-Reactive Protein, Quantitative 29.8 mg/dL (0.00-0.90) H Pro-B-Type Natriuretic Peptide 2276 pg/mL (0-125) H Total Protein 5.7 G/DL (6.4-8.2) L Albumin 2.0 G/DL (3.4-5.0) L Globulin 3.7 g/dL Albumin/Globulin Ratio 0.5 (1.0-2.7) L Lipase 1021 U/L (73-393) H Thyroid Stimulating Hormone (TSH) 2.552 uiU/mL (0.358-3.740) Hepatitis A IgM Antibody Pending Hepatitis B Surface Antigen Pending Hepatitis B Core IgM Antibody Pending Hepatitis C Antibody Pending Arterial Blood pH 7.482 (7.350-7.450) Arterial Blood Partial Pressure CO2 34.5 mmHg (35.0-45.0) L Arterial Blood Partial Pressure O2 73.6 mmHg (75.0-100.0) L Arterial Blood HCO3 25.2 mmol/L (22.0-26.0) Arterial Blood Oxygen Saturation 93.1 % (95-100) L Arterial Blood Base Excess 1.8 (-2-2) Lars Test Positive Microbiology Date/Time Source Procedure Growth Status 11/24/19 00:57 Blood Blood Culture - Preliminary NO GROWTH AFTER 24 HOURS Resulted 11/24/19 00:57 Blood Blood Culture - Preliminary NO GROWTH AFTER 24 HOURS Resulted 11/25/19 02:20 Nasopharynx SARS-CoV-2 RdRp Gene Assay - Final Complete 11/24/19 12:00 Nasopharynx SARS-CoV-2 RdRp Gene Assay - Final Complete 11/24/19 00:57 Nasopharynx SARS-CoV-2 RdRp Gene Assay - Final Complete Objective HEENT: Atraumatic, normocephalic. ENT, pupils are equal, round, and reactive to light and accommodation. Positive pallor. NECK: Cannot assess JVP due to obesity and short neck and current use of BiPAP mask. No carotid bruit. Carotid upstrokes 2+ bilaterally. CARDIOVASCULAR: Normal S1, S2. Regular rate and rhythm. No murmurs, gallops, or rubs. PMI is at fourth intercostal space in the midclavicular line. LUNGS: Bilateral crackles, mostly in the bases. ABDOMEN: Soft, nondistended. No hepatosplenomegaly. Positive bowel sounds. EXTREMITIES: No evidence of edema, clubbing, or cyanosis. Adryan Lopez MD Nov 25, 2019 23:57
[2019-11-26] VITALS (9 sets, daily range): BP systolic 108–134; BP diastolic 39–73
[2019-11-26] MEDS: Piperacillin/Tazobactam 2.25 GM in D5W 55 ML IV SCH ×3 (02:35→18:09)
[2019-11-26] MEDS: Aluminum Hydroxide Gel Susp 15ml ORAL SCH ×4 (04:30→21:51)
[2019-11-26 04:53] LABS: HEMATOCRIT 23.4 % (37.0-47.0); HEMOGLOBIN 7.3 G/DL (12.0-16.0); MEAN CORPUSCULAR VOLUME 68 FL (80-99); PLATELET COUNT 178 K/UL (150-450); RED BLOOD COUNT 3.47 M/UL (4.20-5.40); RED CELL DISTRIBUTION WIDTH 22.6 % (11.6-14.8)
[2019-11-26 04:58] LABS: AMMONIA 33 umol/L (11-32)
[2019-11-26 05:02] LABS: ALANINE AMINOTRANSFERASE 30 U/L (12-78); ALBUMIN 1.7 G/DL (3.4-5.0); ALBUMIN/GLOBULIN RATIO 0.4 (1.0-2.7); ALKALINE PHOSPHATASE 137 U/L (46-116); AMYLASE 105 U/L (25-115); ANION GAP 8 mmol/L (5-15); ASPARTATE AMINO TRANSFERASE 45 U/L (15-37); BILIRUBIN,TOTAL 0.4 MG/DL (0.2-1.0); BLOOD UREA NITROGEN 66 mg/dL (7-18); CALCIUM 7.7 MG/DL (8.5-10.1); CARBON DIOXIDE 32 MMOL/L (21-32); CHLORIDE 104 MMOL/L (98-107); CREATININE 7.3 MG/DL (0.55-1.30); POTASSIUM 4.1 MMOL/L (3.5-5.1); SODIUM 144 MMOL/L (136-145)
[2019-11-26 05:03] LABS: GAMMA GLUTAMYL TRANSPEPTIDASE 25 U/L (5-85)
[2019-11-26 05:14] LABS: PHOSPHORUS 6.8 MG/DL (2.5-4.9); WHITE BLOOD COUNT 25.9 K/UL (4.8-10.8)
--- NOTE | 2019-11-26 06:38 | General Progress Note ---
Assessment/Plan Assessment/Plan: 1. Acute renal failure. 2. Leukocytosis. 3. History of alcohol abuse. 4. Profound microcytic anemia. 5. Prior history of possible psychiatric disorder. 6. Elevated lipase. 7. Mild transaminitis. 8. Pelvic lymphadenopathy. 9. obesity on BIPAP 5 cc hematuria per nurses no bm fu labs will start diet when more alert and off BIPAP repeat labs including lipase tomorrow Subjective ROS Limited/Unobtainable: No Allergies: Coded Allergies: No Known Allergies (Unverified , 11/24/19) Subjective more alert Objective Last 24 Hour Vital Signs Date Time Temp Pulse Resp B/P (MAP) Pulse Ox O2 Delivery O2 Flow Rate FiO2 11/26/19 04:00 97.3 90 22 108/66 (80) 98 11/26/19 04:00 Bi-pap 11/26/19 03:28 71 11/26/19 03:19 45 11/26/19 03:17 68 15 97 45 11/26/19 00:00 Bi-pap 11/26/19 00:00 97.3 90 22 128/73 (91) 98 11/26/19 00:00 50 11/25/19 23:30 76 11/25/19 23:23 91 17 99 50 11/25/19 20:00 50 11/25/19 20:00 97.0 83 21 107/65 (79) 99 11/25/19 20:00 Bi-pap 11/25/19 20:00 86 11/25/19 19:45 96 35 95 50 11/25/19 19:09 98 Venturi Mask 8.0 40 11/25/19 17:00 98.3 11/25/19 17:00 83 21 144/70 (94) 96 11/25/19 16:00 98 21 115/76 (89) 98 11/25/19 16:00 8.0 40 11/25/19 16:00 Bi-pap 11/25/19 15:46 98 11/25/19 15:00 89 29 135/61 (85) 96 11/25/19 14:00 99 26 127/56 (79) 96 11/25/19 13:17 119/56 11/25/19 13:00 97 22 119/56 (77) 97 11/25/19 12:00 99.3 106 33 130/58 (82) 97 11/25/19 12:00 8.0 40 11/25/19 12:00 Bi-pap 11/25/19 11:48 105 11/25/19 11:00 95 25 111/58 (75) 97 11/25/19 10:00 104 25 118/62 (80) 97 11/25/19 09:00 105 26 126/65 (85) 98 11/25/19 08:00 Bi-pap 11/25/19 08:00 8.0 40 11/25/19 08:00 99.4 105 28 128/64 (85) 97 11/25/19 07:52 106 11/25/19 07:05 97 Venturi Mask 8.0 40 11/25/19 07:00 106 30 121/55 (77) 95 Intake and Output 11/25/19 11/26/19 19:00 07:00 Intake Total 525 ml 115 ml Output Total 8 ml 5 ml Balance 517 ml 110 ml IV Total 525 ml 115 ml Output Urine Total 8 ml 5 ml Hemodialysis UF 0 ml Laboratory Tests 11/25/19 07:05: Arterial Blood pH 7.482H, Arterial Blood Partial Pressure CO2 34.5L, Arterial Blood Partial Pressure O2 73.6L, Arterial Blood HCO3 25.2, Arterial Blood Oxygen Saturation 93.1L, Arterial Blood Base Excess 1.8, Lars Test Positive 11/26/19 03:38: White Blood Count 25.9*H, Red Blood Count 3.47L, Hemoglobin 7.3L, Hematocrit 23.4L, Mean Corpuscular Volume 68L, Mean Corpuscular Hemoglobin 21.0L, Mean Corpuscular Hemoglobin Concent 31.1L, Red Cell Distribution Width 22.6H, Platelet Count 178, Mean Platelet Volume 5.3L, Neutrophils (%) (Auto) , Lymphocytes (%) (Auto) , Monocytes (%) (Auto) , Eosinophils (%) (Auto) , Basophils (%) (Auto) , Neutrophils % (Manual) [Pending], Lymphocytes % (Manual) [Pending], Platelet Estimate [Pending], Platelet Morphology [Pending], Sodium Level 144, Potassium Level 4.1, Chloride Level 104, Carbon Dioxide Level 32, Anion Gap 8, Blood Urea Nitrogen 66H, Creatinine 7.3H, Estimat Glomerular Filtration Rate 5.6, Glucose Level 173H, Uric Acid 7.9H, Calcium Level 7.7L, Phosphorus Level 6.8H, Magnesium Level 2.5H, Total Bilirubin 0.4, Gamma Glutamyl Transpeptidase 25, Aspartate Amino Transf (AST/SGOT) 45H, Alanine Aminotransferase (ALT/SGPT) 30, Alkaline Phosphatase 137H, Ammonia 33H, C- Reactive Protein, Quantitative [Pending], Pro-B-Type Natriuretic Peptide 2166H, Total Protein 5.7L, Albumin 1.7L, Globulin 4.0, Albumin/Globulin Ratio 0.4L, Amylase Level 105, Lipase 539H Height (Feet): 5 Height (Inches): 4.00 Weight (Pounds): 230 General Appearance: lethargic EENT: normal ENT inspection Neck: supple Cardiovascular: tachycardia Respiratory/Chest: decreased breath sounds Abdomen: hypoactive bowel sounds Extremities: non-tender Ministerio Davis MD Nov 26, 2019 06:38
[2019-11-26] MEDS: D5 1/2NS 1,000 ML IV SCH ×2 (08:55→20:27)
[2019-11-26] MEDS: Pantoprazole Inj IVP SCH ×2 (09:46→20:27)
[2019-11-26] MEDS: Docusate 100mg cap ORAL SCH ×3 (09:47→18:09)
--- NOTE | 2019-11-26 10:15 | Pulmonology Progress Note ---
Carlita Brewster [employer] 11/26/19 1015: Subjective ROS Limited/Unobtainable: No Allergies: Coded Allergies: No Known Allergies (Unverified , 11/24/19) Subjective transferred to SDU now on O2 2 L via NC, no signs of resp distress afebrile, still persistent leucocytosis just had Venous Duplex per nursing + acute DVT, awaiting for report Hgb 7.3 creat down to 7.3 early afternoon desaturated and placed back on 40 % VM Objective Last 24 Hour Vital Signs Date Time Temp Pulse Resp B/P (MAP) Pulse Ox O2 Delivery O2 Flow Rate FiO2 11/26/19 08:00 97.7 88 22 121/68 (85) 96 11/26/19 08:00 69 11/26/19 07:50 98 Nasal Cannula 2.0 28 11/26/19 04:00 97.3 90 22 108/66 (80) 98 11/26/19 04:00 Bi-pap 11/26/19 03:28 71 11/26/19 03:19 45 11/26/19 03:17 68 15 97 45 11/26/19 00:00 Bi-pap 11/26/19 00:00 97.3 90 22 128/73 (91) 98 11/26/19 00:00 50 11/25/19 23:30 76 11/25/19 23:23 91 17 99 50 11/25/19 20:00 50 11/25/19 20:00 97.0 83 21 107/65 (79) 99 11/25/19 20:00 Bi-pap 11/25/19 20:00 86 11/25/19 19:45 96 35 95 50 11/25/19 19:09 98 Venturi Mask 8.0 40 11/25/19 17:00 98.3 11/25/19 17:00 83 21 144/70 (94) 96 11/25/19 16:00 98 21 115/76 (89) 98 11/25/19 16:00 8.0 40 11/25/19 16:00 Bi-pap 11/25/19 15:46 98 11/25/19 15:00 89 29 135/61 (85) 96 11/25/19 14:00 99 26 127/56 (79) 96 11/25/19 13:17 119/56 11/25/19 13:00 97 22 119/56 (77) 97 11/25/19 12:00 99.3 106 33 130/58 (82) 97 11/25/19 12:00 8.0 40 11/25/19 12:00 Bi-pap 11/25/19 11:48 105 11/25/19 11:00 95 25 111/58 (75) 97 Intake and Output 11/25/19 11/26/19 19:00 07:00 Intake Total 525 ml 115 ml Output Total 8 ml 5 ml Balance 517 ml 110 ml IV Total 525 ml 115 ml Output Urine Total 8 ml 5 ml Hemodialysis UF 0 ml Objective General Appearance: Qatari speaking, in NAD, less anxious, obese female Lines, tubes and drains: peripheral, also CL via R femoral ->HD catheter HEENT: normocephalic, atraumatic, anicteric, mucous membranes moist Neck: non-tender, supple Respiratory/Chest: no accessory muscle use, few crackles at bases Cardiovascular/Chest: normal peripheral pulses, normal rate, regular rhythm Abdomen: normal bowel sounds, soft - obese, non tender Extremities: normal range of motion, non-tender, no calf tenderness, +1 edema BLE Neurologic: no motor/sensory deficits, alert, responsive but confused Musculoskeletal: normal muscle bulk Microbiology Date/Time Source Procedure Growth Status 11/24/19 00:57 Blood Blood Culture - Preliminary NO GROWTH AFTER 48 HOURS Resulted 11/24/19 00:57 Blood Blood Culture - Preliminary NO GROWTH AFTER 48 HOURS Resulted 11/25/19 02:20 Nasopharynx SARS-CoV-2 RdRp Gene Assay - Final Complete 11/24/19 12:00 Nasopharynx SARS-CoV-2 RdRp Gene Assay - Final Complete 11/24/19 00:57 Nasopharynx SARS-CoV-2 RdRp Gene Assay - Final Complete Laboratory Tests 11/26/19 03:38: White Blood Count 25.9*H, Red Blood Count 3.47L, Hemoglobin 7.3L, Hematocrit 23.4L, Mean Corpuscular Volume 68L, Mean Corpuscular Hemoglobin 21.0L, Mean Corpuscular Hemoglobin Concent 31.1L, Red Cell Distribution Width 22.6H, Platelet Count 178, Mean Platelet Volume 5.3L, Neutrophils (%) (Auto) , Lymphocytes (%) (Auto) , Monocytes (%) (Auto) , Eosinophils (%) (Auto) , Basophils (%) (Auto) , Differential Total Cells Counted 100, Neutrophils % ( Manual) 90H, Lymphocytes % (Manual) 3L, Monocytes % (Manual) 7, Eosinophils % ( Manual) 0, Basophils % (Manual) 0, Band Neutrophils 0, Platelet Estimate Adequate, Platelet Morphology Normal, Polychromasia 1+, Hypochromasia 1+, Anisocytosis 3+, Microcytosis 2+, Sodium Level 144, Potassium Level 4.1, Chloride Level 104, Carbon Dioxide Level 32, Anion Gap 8, Blood Urea Nitrogen 66H, Creatinine 7.3H, Estimat Glomerular Filtration Rate 5.6, Glucose Level 173H , Uric Acid 7.9H, Calcium Level 7.7L, Phosphorus Level 6.8H, Magnesium Level 2.5H, Total Bilirubin 0.4, Gamma Glutamyl Transpeptidase 25, Aspartate Amino Transf (AST/SGOT) 45H, Alanine Aminotransferase (ALT/SGPT) 30, Alkaline Phosphatase 137H, Ammonia 33H, C-Reactive Protein, Quantitative 29.6H, Pro-B- Type Natriuretic Peptide 2166H, Total Protein 5.7L, Albumin 1.7L, Globulin 4.0, Albumin/Globulin Ratio 0.4L, Amylase Level 105, Lipase 539H Current Medications Medications (Trade) Dose Ordered Sig/Brina Route PRN Reason Start Time Stop Time Status Last Admin Dose Admin Albuterol/ Ipratropium (Albuterol/ Ipratropium) 3 ml Q4H PRN HHN Shortness of Breath 11/25/19 18:30 11/29/19 18:29 Albuterol/ Ipratropium (Albuterol/ Ipratropium) 3 ml Q4H PRN HHN sob 11/25/19 19:00 11/30/19 18:59 Aluminum Hydroxide (Amphojel) 1,920 mg Q6H ORAL 11/25/19 22:00 12/25/19 09:59 11/26/19 09:47 Chlorhexidine Gluconate (Shonna-Hex 2%) 1 applic DAILY@1999 TOPIC 11/26/19 20:00 02/24/20 19:59 Dextrose/Sodium Chloride 1,000 ml @ 75 mls/hr [id number] IV 11/25/19 18:30 12/25/19 08:44 11/26/19 08:55 Docusate Sodium (Colace) 100 mg THREE TIMES A DAY ORAL 11/26/19 09:00 12/25/19 08:59 11/26/19 09:47 Epoetin Zay (Epoetin Zay(ESRD on dialysis)) 10,000 unit TUE-TUE-TUE SUBQ 11/26/19 21:00 02/24/20 20:59 Iron Sucrose 100 mg/Sodium Chloride 60 ml @ 240 mls/hr BEDTIME IV 11/25/19 21:00 11/29/19 21:14 11/25/19 21:49 Lorazepam (Ativan 2mg/ml 1ml) 1 mg Q4H PRN IV For Anxiety 11/25/19 18:45 12/02/19 10:44 Morphine Sulfate (Morphine Sulfate) 1 mg Q8H PRN IVP For Pain 11/25/19 18:30 12/02/19 18:29 Pantoprazole (Protonix) 40 mg Q12HR IVP 11/25/19 21:00 12/24/19 10:59 11/26/19 09:46 Piperacillin Sod/ Tazobactam Sod 2.25 gm/Dextrose 55 ml @ 110 mls/hr Q8HR@0200,1000,1800 IV 11/26/19 02:00 12/01/19 09:59 11/26/19 09:47 Thiamine HCl 100 mg/Dextrose 56 ml @ 112 mls/hr Q24H IVPB 11/26/19 12:00 12/25/19 11:59 Assessment/Plan Assessment/Plan ASSESSMENT Sepsis Acute hypoxemic respiratory failure - Acute toxic metabolic encephalopathy ( multifactorial due to ARF, sepsis) Acute renal failure , requiring start of HD Acute DVT LLE common femoral to proximal superficial veins Possible UTI VEIN. Hyperkalemia Severe pulmonary HTN Anemia Elevated lipase, possible pancreatitis Pelvic LAD Anasarca History of EtOH abuse Possible psychiatric disorder PLAN OF CARE LEOBARDO supplemental O2 titrate to keep sat above 92%, resp status improved after HD, now onO2 via NC fup with CXR pulm toilet SCX if able hx of recent resp illness empiric abx per ID recs-> Zosyn persistent leukocytosis, no fevers doubt PNA given clear CT chest SOB and resp distress most likely were to fluid overload 2 to acute renal failure, and now acute DVT Venous Duplex BLE + acute DVT LEFT COMMON FEMORAL TO PROXIMAL SUPERFICIAL FEMORAL VEINs. unable to start a/coagulation given Hgb 7.[address] angio due to renal failure stat VQ scan r/o PE will need IVC filter significant risk for bleeding if start heparin gtt rapid COVID 19 11/23 x 2 - NGT rapid COVID 11/24 NGT BCX 11/23 NGTD ? 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 - bicarb stabilized s/p HD via R fem temp HD catheter, placed by surgeon creat trending down monitor volumes ECHO with pEF 65% and RVSP of 58 c/w severe pulm HTN cardiac monitoring-SR s/p 2 u PRBC monitor HH with goal to keep Hg above 7,s/p 2 u PRBC 11/23, Hgb rise initially, now trending down again, on EPO and IV iron GI on case anemia w/up stool OB lipase with trend up, LFT slightly down; monitor NPO for now hep panel abd US, given enlarged lymph nodes lipase and AST trending down thank you for consult Reece Peters MD 11/26/19 2111: Subjective Allergies: Coded Allergies: No Known Allergies (Unverified , 11/24/19) Assessment/Plan Assessment/Plan Patient seen and examined with [employer]. Agree with above A&P as it reflects our joint deliberations. Acute LE DVT with continued shortness of breath. Low H/H that is downtrending with recent transfusion, unclear if active bleeding an issue. Will check stool for occult blood. Unclear clearance for anticoagulation for the moment. IVC filter placed today. Carlita Brewster NP Nov 26, 2019 10:15 Reece Peters MD Nov 26, 2019 21:11
--- NOTE | 2019-11-26 11:24 | Diagnostic Imaging Report ---
EXAM: ULTRASOUND Venous Duplex Scan Darin Leg CLINICAL HISTORY: Leg pain and edema. COMPARISON: None TECHNIQUE: Doppler examination include grayscale images obtained with and without compression, and color and spectral doppler analysis. FINDINGS: The study is positive for hypoechoic clot identified in the left lower extremity involving the common femoral to proximal superficial femoral vein. The mid to distal superficial femoral vein runs deep and difficult to visualize. Popliteal vein also not well visualized. The right lower extremity is unremarkable with normal phasicity, spontaneity, augmentation and compressibility. IMPRESSION: STUDY POSITIVE FOR DVT IN THE LEFT COMMON FEMORAL TO PROXIMAL SUPERFICIAL FEMORAL VEIN. PATIENT'S NURSE, MIN WAS NOTIFIED OF FINDINGS.
--- NOTE | 2019-11-26 11:28 | Diagnostic Imaging Report ---
Procedure: XRAY Chest 1v Reason for study: Reason For Exam: SOB Comparison films: 11/24/2019. FINDINGS: A single one view chest is obtained. Prominent vascularity noted. There is increased bilateral alveolar infiltrates particularly in the right lung base which appears more confluent. Cardiomegaly and tortuous aorta unchanged. CP angles are sharp. The bony thorax appear unremarkable. IMPRESSION: Increased bilateral infiltrates.
--- NOTE | 2019-11-26 11:41 | Surgery Progress Note ---
Surgery Progress Note Subjective Procedure Performed right femoral temporary Hemodialysis catheter insertion Additional Comments downgraded awake alert responsive on face mask leukocytosis HD tomorrow Objective Last 24 Hour Vital Signs Date Time Temp Pulse Resp B/P (MAP) Pulse Ox O2 Delivery O2 Flow Rate FiO2 11/26/19 08:00 97.7 88 22 121/68 (85) 96 11/26/19 08:00 69 11/26/19 08:00 Nasal Cannula 2.0 11/26/19 08:00 2.0 11/26/19 07:50 98 Nasal Cannula 2.0 28 11/26/19 04:00 97.3 90 22 108/66 (80) 98 11/26/19 04:00 Bi-pap 11/26/19 03:28 71 11/26/19 03:19 45 11/26/19 03:17 68 15 97 45 11/26/19 00:00 Bi-pap 11/26/19 00:00 97.3 90 22 128/73 (91) 98 11/26/19 00:00 50 11/25/19 23:30 76 11/25/19 23:23 91 17 99 50 11/25/19 20:00 50 11/25/19 20:00 97.0 83 21 107/65 (79) 99 11/25/19 20:00 Bi-pap 11/25/19 20:00 86 11/25/19 19:45 96 35 95 50 11/25/19 19:09 98 Venturi Mask 8.0 40 11/25/19 17:00 98.3 11/25/19 17:00 83 21 144/70 (94) 96 11/25/19 16:00 98 21 115/76 (89) 98 11/25/19 16:00 8.0 40 11/25/19 16:00 Bi-pap 11/25/19 15:46 98 11/25/19 15:00 89 29 135/61 (85) 96 11/25/19 14:00 99 26 127/56 (79) 96 11/25/19 13:17 119/56 11/25/19 13:00 97 22 119/56 (77) 97 11/25/19 12:00 99.3 106 33 130/58 (82) 97 11/25/19 12:00 8.0 40 11/25/19 12:00 Bi-pap 11/25/19 11:48 105 I&O Intake and Output 11/25/19 11/26/19 19:00 07:00 Intake Total 525 ml 115 ml Output Total 8 ml 5 ml Balance 517 ml 110 ml IV Total 525 ml 115 ml Output Urine Total 8 ml 5 ml Hemodialysis UF 0 ml Dressing: dry Wound: clean Cardiovascular: RSR Respiratory: decreased breath sounds Abdomen: soft, non-tender, present bowel sounds Extremities: edema, no tenderness, no cyanosis Laboratory Tests Test 11/26/19 03:38 White Blood Count 25.9 K/UL (4.8-10.8) *H Red Blood Count 3.47 M/UL (4.20-5.40) L Hemoglobin 7.3 G/DL (12.0-16.0) L Hematocrit 23.4 % (37.0-47.0) L Mean Corpuscular Volume 68 FL (80-99) L Mean Corpuscular Hemoglobin 21.0 PG (27.0-31.0) L Mean Corpuscular Hemoglobin Concent 31.1 G/DL (32.0-36.0) L Red Cell Distribution Width 22.6 % (11.6-14.8) H Platelet Count 178 K/UL (150-450) Mean Platelet Volume 5.3 FL (6.5-10.1) L Neutrophils (%) (Auto) % (45.0-75.0) Lymphocytes (%) (Auto) % (20.0-45.0) Monocytes (%) (Auto) % (1.0-10.0) Eosinophils (%) (Auto) % (0.0-3.0) Basophils (%) (Auto) % (0.0-2.0) Differential Total Cells Counted 100 Neutrophils % (Manual) 90 % (45-75) H Lymphocytes % (Manual) 3 % (20-45) L Monocytes % (Manual) 7 % (1-10) Eosinophils % (Manual) 0 % (0-3) Basophils % (Manual) 0 % (0-2) Band Neutrophils 0 % (0-8) Platelet Estimate Adequate Platelet Morphology Normal Polychromasia 1+ Hypochromasia 1+ Anisocytosis 3+ Microcytosis 2+ Sodium Level 144 MMOL/L (136-145) Potassium Level 4.1 MMOL/L (3.5-5.1) Chloride Level 104 MMOL/L (98-107) Carbon Dioxide Level 32 MMOL/L (21-32) Anion Gap 8 mmol/L (5-15) Blood Urea Nitrogen 66 mg/dL (7-18) H Creatinine 7.3 MG/DL (0.55-1.30) H Estimat Glomerular Filtration Rate 5.6 mL/min (>60) Glucose Level 173 MG/DL (74-106) H Uric Acid 7.9 MG/DL (2.6-7.2) H Calcium Level 7.7 MG/DL (8.5-10.1) L Phosphorus Level 6.8 MG/DL (2.5-4.9) H Magnesium Level 2.5 MG/DL (1.8-2.4) H Total Bilirubin 0.4 MG/DL (0.2-1.0) Gamma Glutamyl Transpeptidase 25 U/L (5-85) Aspartate Amino Transf (AST/SGOT) 45 U/L (15-37) H Alanine Aminotransferase (ALT/SGPT) 30 U/L (12-78) Alkaline Phosphatase 137 U/L (46-116) H Ammonia 33 umol/L (11-32) H C-Reactive Protein, Quantitative 29.6 mg/dL (0.00-0.90) H Pro-B-Type Natriuretic Peptide 2166 pg/mL (0-125) H Total Protein 5.7 G/DL (6.4-8.2) L Albumin 1.7 G/DL (3.4-5.0) L Globulin 4.0 g/dL Albumin/Globulin Ratio 0.4 (1.0-2.7) L Amylase Level 105 U/L (25-115) Lipase 539 U/L (73-393) H Plan Problems: (1) Anemia (2) Encephalopathy acute (3) Acute respiratory failure with hypoxia (4) Hyperkalemia (5) Sepsis Assessment & Plan: Leukocytosis anemia hyperkalemia abnormal labs HD catheter placed received dialysis and slowly potassium improved. Plan for repeat dialysis ordered. IV antibiotics per infectious disease Patient is alert awake but confused. Slowly improving No hematoma or bleeding identified Site looks clean We will continue with HD on a sure if renal function will improve may need permacath CT reviewed edema noted lymph nodes noted likely reactive Thank you for let me participate patient's care with follow with recommendations ABDOMEN: Liver: Unremarkable. Gallbladder and bile ducts: Unremarkable. No calcified stones. No ductal dilation. Pancreas: Unremarkable. No ductal dilation. Spleen: Unremarkable. No splenomegaly. Adrenals: Unremarkable. No mass. Kidneys and ureters: Bilateral low-grade hydronephrosis. No radiopaque stones in the urinary tract identified except for nonobstructing 3 mm stone in the inferior pole left kidney. Stomach and bowel: Scattered colonic diverticuli. No obstruction. No mucosal thickening. PELVIS: Appendix: No findings to suggest acute appendicitis. Bladder: The urinary bladder is decompressed by an indwelling Kaminski catheter No stones. Reproductive: Unremarkable as visualized. ABDOMEN and PELVIS: Intraperitoneal space: Unremarkable. No free air. No significant fluid collection. Bones/joints: No acute fracture. No dislocation. Soft tissues: Anasarca. Vasculature: Unremarkable. No abdominal aortic aneurysm. Lymph nodes: Enlarged left superficial inguinal lymph node measuring 2 cm short axis There are bilateral enlarged external iliac lymph nodes, measuring 2.9 cm x 5.1 cm on the left and 2.7 x 2.0 cm on the right. Other findings: Beam hardening from patient's abdominal girth degrades detail. IMPRESSION: 1. Enlarged pelvic lymph nodes could reflect reactive changes from cellulitis in the setting of generalized bony wall edema, or other acute inflammatory changes but neoplasm such as lymphomas not excluded. Correlate clinically. Ultrasound of the pelvis could be considered to help distinguish patient's ovaries from presumed pelvic adenopathy. 2. Mild bilateral hydronephrosis, with a Kaminski catheter in the urinary bladder. Correlate with bladder catheter function. (6) ARF (acute renal failure) (7) CAP (community acquired pneumonia) (8) Serum lipase elevation (9) Obesity (BMI 30-39.9) Angelo Naik Nov 26, 2019 11:41
--- NOTE | 2019-11-26 11:53 | Diagnostic Imaging Report ---
EXAM: ULTRASOUND US ABD limited CLINICAL HISTORY: Abdominal pain. COMPARISON: CT 11/24/2019 TECHNIQUE: Ultrasound examination of the abdomen includes grayscale images, and color and spectral doppler analysis. FINDINGS: Study is technically limited due to patient body habitus and bowel gas. The liver is echogenic and fatty. There is a mildly septated cyst identified in the inferior right lobe. Spleen is not visualized. There are multiple gallstones. No wall thickening noted. Patient is not focally tender. Common bile duct, pancreas as well as left kidney are not visualized. Right kidney is also not well seen but there is suggestion of mild hydronephrosis is seen on prior CT. Aorta and cava are mostly obscured. IMPRESSION: STUDY LIMITED DUE TO BODY HABITUS AND BOWEL GAS. FATTY LIVER WITH A SMALL SEPTATED CYST. GALLSTONES. THE SPLEEN, LEFT KIDNEY, COMMON BILE DUCT AND PANCREAS WELL AORTA AND CAVA ARE NOT WELL DEFINED.
--- NOTE | 2019-11-26 11:56 | Infectious Diseases Prog Note ---
Assessment/Plan ASSESSMENT: The patient is a 69-year-old female with: 1. Respiratory distress.- SP Bipap- now on NC 2. B/l Pneumonia- COVID neg x3 -11/24 sp cx S. aureus (sensi pending) -11/23 Rapid COVID PCR neg x2; 11/24 rapid COVID PCR neg -11/23 CT chest: Bilateral pneumonia, with greater confluence in the posterior right lower lobe. 3. SEvere Leukocytosis, acute reacted to distress versus sepsis. -on the high 20s-30s -r/o malingnancy -CT abd/p : Enlarged pelvic lymph nodes could reflect reactive changes from cellulitis in the setting of generalized bony wall edema, or other acute inflammatory changes but neoplasm such as lymphomas not excluded. Correlate clinically. Ultrasound of the pelvis could be considered to help distinguish patient's ovaries from presumed pelvic adenopathy.Mild bilateral hydronephrosis , with a Kaminski catheter in the urinary bladder. Correlate with bladder catheter function. 4. Sepsis. 5.r/o Probable UTI. 6. Rule out probable bacteremia. -11/23 BCx NTD 7. L LE DVT -v. duplex: STUDY POSITIVE FOR DVT IN THE LEFT COMMON FEMORAL TO PROXIMAL SUPERFICIAL FEMORAL VEIN. 8. Severe acute renal failure; improving- likely underlying CKD 9. Acute pancreatitis EtOh abuse PLAN: 1. We will continue the patient on IV Zosyn #3 and add ZYvox for S. aureus -11/23 SP CEftriaxone x1, Azythromycin x1, IV Vancomycin x1 2. Monitor blood culture. 3. Monitor urine culture. 4. COVID neg x3 (2 were sent on same day) 5. Monitor lipase. 6. pelvic uS 7. u /a, ucx 8. flow cytometry Based on the patient's clinical course and labs, we will do further recommendations. I have advised nursing staff to keep the patient in insolation until second test. Subjective Allergies: Coded Allergies: No Known Allergies (Unverified , 11/24/19) afebrile now at 2l NC Objective Last 24 Hour Vital Signs Date Time Temp Pulse Resp B/P (MAP) Pulse Ox O2 Delivery O2 Flow Rate FiO2 11/26/19 08:00 97.7 88 22 121/68 (85) 96 11/26/19 08:00 69 11/26/19 08:00 Nasal Cannula 2.0 11/26/19 08:00 2.0 11/26/19 07:50 98 Nasal Cannula 2.0 28 11/26/19 04:00 97.3 90 22 108/66 (80) 98 11/26/19 04:00 Bi-pap 11/26/19 03:28 71 11/26/19 03:19 45 11/26/19 03:17 68 15 97 45 11/26/19 00:00 Bi-pap 11/26/19 00:00 97.3 90 22 128/73 (91) 98 11/26/19 00:00 50 11/25/19 23:30 76 11/25/19 23:23 91 17 99 50 11/25/19 20:00 50 11/25/19 20:00 97.0 83 21 107/65 (79) 99 11/25/19 20:00 Bi-pap 11/25/19 20:00 86 11/25/19 19:45 96 35 95 50 11/25/19 19:09 98 Venturi Mask 8.0 40 11/25/19 17:00 98.3 11/25/19 17:00 83 21 144/70 (94) 96 11/25/19 16:00 98 21 115/76 (89) 98 11/25/19 16:00 8.0 40 11/25/19 16:00 Bi-pap 11/25/19 15:46 98 11/25/19 15:00 89 29 135/61 (85) 96 11/25/19 14:00 99 26 127/56 (79) 96 11/25/19 13:17 119/56 11/25/19 13:00 97 22 119/56 (77) 97 11/25/19 12:00 99.3 106 33 130/58 (82) 97 11/25/19 12:00 8.0 40 11/25/19 12:00 Bi-pap 11/25/19 11:48 105 Height (Feet): 5 Height (Inches): 4.00 Weight (Pounds): 230 HEENT: No pale conjunctivae. No icterus. NECK: No lymphadenopathy. CHEST: Coarse breathing sounds. HEART: S1-S2. ABDOMEN: Obese. EXTREMITIES: No cyanosis at this time. NEUROLOGIC: Awake. Microbiology Date/Time Source Procedure Growth Status 11/24/19 00:57 Blood Blood Culture - Preliminary NO GROWTH AFTER 48 HOURS Resulted 11/24/19 00:57 Blood Blood Culture - Preliminary NO GROWTH AFTER 48 HOURS Resulted 11/25/19 03:50 Sputum Expectorated Gram Stain Pending Resulted 11/25/19 03:50 Sputum Culture - Preliminary Staphylococcus Aureus Resulted 11/25/19 02:20 Nasopharynx SARS-CoV-2 RdRp Gene Assay - Final Complete 11/24/19 12:00 Nasopharynx SARS-CoV-2 RdRp Gene Assay - Final Complete 11/24/19 00:57 Nasopharynx SARS-CoV-2 RdRp Gene Assay - Final Complete Laboratory Tests Test 11/26/19 03:38 White Blood Count 25.9 K/UL (4.8-10.8) *H Red Blood Count 3.47 M/UL (4.20-5.40) L Hemoglobin 7.3 G/DL (12.0-16.0) L Hematocrit 23.4 % (37.0-47.0) L Mean Corpuscular Volume 68 FL (80-99) L Mean Corpuscular Hemoglobin 21.0 PG (27.0-31.0) L Mean Corpuscular Hemoglobin Concent 31.1 G/DL (32.0-36.0) L Red Cell Distribution Width 22.6 % (11.6-14.8) H Platelet Count 178 K/UL (150-450) Mean Platelet Volume 5.3 FL (6.5-10.1) L Neutrophils (%) (Auto) % (45.0-75.0) Lymphocytes (%) (Auto) % (20.0-45.0) Monocytes (%) (Auto) % (1.0-10.0) Eosinophils (%) (Auto) % (0.0-3.0) Basophils (%) (Auto) % (0.0-2.0) Differential Total Cells Counted 100 Neutrophils % (Manual) 90 % (45-75) H Lymphocytes % (Manual) 3 % (20-45) L Monocytes % (Manual) 7 % (1-10) Eosinophils % (Manual) 0 % (0-3) Basophils % (Manual) 0 % (0-2) Band Neutrophils 0 % (0-8) Platelet Estimate Adequate Platelet Morphology Normal Polychromasia 1+ Hypochromasia 1+ Anisocytosis 3+ Microcytosis 2+ Sodium Level 144 MMOL/L (136-145) Potassium Level 4.1 MMOL/L (3.5-5.1) Chloride Level 104 MMOL/L (98-107) Carbon Dioxide Level 32 MMOL/L (21-32) Anion Gap 8 mmol/L (5-15) Blood Urea Nitrogen 66 mg/dL (7-18) H Creatinine 7.3 MG/DL (0.55-1.30) H Estimat Glomerular Filtration Rate 5.6 mL/min (>60) Glucose Level 173 MG/DL (74-106) H Uric Acid 7.9 MG/DL (2.6-7.2) H Calcium Level 7.7 MG/DL (8.5-10.1) L Phosphorus Level 6.8 MG/DL (2.5-4.9) H Magnesium Level 2.5 MG/DL (1.8-2.4) H Total Bilirubin 0.4 MG/DL (0.2-1.0) Gamma Glutamyl Transpeptidase 25 U/L (5-85) Aspartate Amino Transf (AST/SGOT) 45 U/L (15-37) H Alanine Aminotransferase (ALT/SGPT) 30 U/L (12-78) Alkaline Phosphatase 137 U/L (46-116) H Ammonia 33 umol/L (11-32) H C-Reactive Protein, Quantitative 29.6 mg/dL (0.00-0.90) H Pro-B-Type Natriuretic Peptide 2166 pg/mL (0-125) H Total Protein 5.7 G/DL (6.4-8.2) L Albumin 1.7 G/DL (3.4-5.0) L Globulin 4.0 g/dL Albumin/Globulin Ratio 0.4 (1.0-2.7) L Amylase Level 105 U/L (25-115) Lipase 539 U/L (73-393) H Current Medications Medications (Trade) Dose Ordered Sig/Brina Route PRN Reason Start Time Stop Time Status Last Admin Dose Admin Albuterol/ Ipratropium (Albuterol/ Ipratropium) 3 ml Q4H PRN HHN Shortness of Breath 11/25/19 18:30 11/29/19 18:29 Albuterol/ Ipratropium (Albuterol/ Ipratropium) 3 ml Q4H PRN HHN sob 11/25/19 19:00 11/30/19 18:59 Aluminum Hydroxide (Amphojel) 1,920 mg Q6H ORAL 11/25/19 22:00 12/25/19 09:59 11/26/19 09:47 Chlorhexidine Gluconate (Shonna-Hex 2%) 1 applic DAILY@2000 TOPIC 11/26/19 20:00 02/24/20 19:59 Dextrose/Sodium Chloride 1,000 ml @ 75 mls/hr [id number] IV 11/25/19 18:30 12/25/19 08:44 11/26/19 08:55 Docusate Sodium (Colace) 100 mg THREE TIMES A DAY ORAL 11/26/19 09:00 12/25/19 08:59 11/26/19 09:47 Epoetin Zay (Epoetin Zay(ESRD on dialysis)) 10,000 unit TUE- SUBQ 11/26/19 21:00 02/24/20 20:59 Iron Sucrose 100 mg/Sodium Chloride 60 ml @ 240 mls/hr BEDTIME IV 11/25/19 21:00 11/29/19 21:14 11/25/19 21:49 Lorazepam (Ativan 2mg/ml 1ml) 1 mg Q4H PRN IV For Anxiety 11/25/19 18:45 12/02/19 10:44 Morphine Sulfate (Morphine Sulfate) 1 mg Q8H PRN IVP For Pain 11/25/19 18:30 12/02/19 18:29 Pantoprazole (Protonix) 40 mg Q12HR IVP 11/25/19 21:00 12/24/19 10:59 11/26/19 09:46 Piperacillin Sod/ Tazobactam Sod 2.25 gm/Dextrose 55 ml @ 110 mls/hr Q8HR@0200,1000,1800 IV 11/26/19 02:00 12/01/19 09:59 11/26/19 09:47 Thiamine HCl 100 mg/Dextrose 56 ml @ 112 mls/hr Q24H IVPB 11/26/19 12:00 12/25/19 11:59 Britt Jimenez M.D. Nov 26, 2019 11:56
--- NOTE | 2019-11-26 12:09 | General Progress Note ---
Assessment/Plan Assessment/Plan: S, O: pt is awake , poor historian, seen and examined in step down unit. PHYSICAL EXAMINATION:HEAD AND NECK: Atraumatic and normocephalic. CHEST: Diffuse bronchial breathing sounds.HEART: S1 and S2. Regular rate and rhythm. ABDOMEN: Soft. No organomegaly. Protuberant. No tenderness. MUSCULOSKELETAL: Right inguinal HD- access noted, No gross lateralized motor deficit. It is limited examination as the patient is not cooperative. b/l le edema and tenderness NEUROLOGIC: The patient is delirious. DIAGNOSTIC AND LABORATORY DATA: Imaging, dated November 24 shows b/l dvt Labs, dated November 25 reviwed ASSESSMENT: 1. Severe sepsis. 2. PNA- Bilateral 3. Hypoxemic respiratory failure. 3. Hyperkalemia. 4. End-stage renal disease. 5. CHF, likely diagnosis. 6. Abnormal blood sugar. 7. Acute on chronic Microcytic anemia. 8. GI and DVT prophylaxis. 9. LE DVT- Bilateral PLAN OF CARE: contra indication for anticoagulation . D/W Hemonch regarding IVC notes form ID, Nephrology reviewed Subjective Allergies: Coded Allergies: No Known Allergies (Unverified , 11/24/19) Objective Last 24 Hour Vital Signs Date Time Temp Pulse Resp B/P (MAP) Pulse Ox O2 Delivery O2 Flow Rate FiO2 11/26/19 08:00 97.7 88 22 121/68 (85) 96 11/26/19 08:00 69 11/26/19 08:00 Nasal Cannula 2.0 11/26/19 08:00 2.0 11/26/19 07:50 98 Nasal Cannula 2.0 28 11/26/19 04:00 97.3 90 22 108/66 (80) 98 11/26/19 04:00 Bi-pap 11/26/19 03:28 71 11/26/19 03:19 45 11/26/19 03:17 68 15 97 45 11/26/19 00:00 Bi-pap 11/26/19 00:00 97.3 90 22 128/73 (91) 98 11/26/19 00:00 50 11/25/19 23:30 76 11/25/19 23:23 91 17 99 50 11/25/19 20:00 50 11/25/19 20:00 97.0 83 21 107/65 (79) 99 11/25/19 20:00 Bi-pap 11/25/19 20:00 86 11/25/19 19:45 96 35 95 50 11/25/19 19:09 98 Venturi Mask 8.0 40 11/25/19 17:00 98.3 11/25/19 17:00 83 21 144/70 (94) 96 11/25/19 16:00 98 21 115/76 (89) 98 11/25/19 16:00 8.0 40 11/25/19 16:00 Bi-pap 11/25/19 15:46 98 11/25/19 15:00 89 29 135/61 (85) 96 11/25/19 14:00 99 26 127/56 (79) 96 11/25/19 13:17 119/56 11/25/19 13:00 97 22 119/56 (77) 97 Intake and Output 11/25/19 11/26/19 19:00 07:00 Intake Total 525 ml 115 ml Output Total 8 ml 5 ml Balance 517 ml 110 ml IV Total 525 ml 115 ml Output Urine Total 8 ml 5 ml Hemodialysis UF 0 ml Laboratory Tests 11/26/19 03:38: White Blood Count 25.9*H, Red Blood Count 3.47L, Hemoglobin 7.3L, Hematocrit 23.4L, Mean Corpuscular Volume 68L, Mean Corpuscular Hemoglobin 21.0L, Mean Corpuscular Hemoglobin Concent 31.1L, Red Cell Distribution Width 22.6H, Platelet Count 178, Mean Platelet Volume 5.3L, Neutrophils (%) (Auto) , Lymphocytes (%) (Auto) , Monocytes (%) (Auto) , Eosinophils (%) (Auto) , Basophils (%) (Auto) , Differential Total Cells Counted 100, Neutrophils % ( Manual) 90H, Lymphocytes % (Manual) 3L, Monocytes % (Manual) 7, Eosinophils % ( Manual) 0, Basophils % (Manual) 0, Band Neutrophils 0, Platelet Estimate Adequate, Platelet Morphology Normal, Polychromasia 1+, Hypochromasia 1+, Anisocytosis 3+, Microcytosis 2+, Sodium Level 144, Potassium Level 4.1, Chloride Level 104, Carbon Dioxide Level 32, Anion Gap 8, Blood Urea Nitrogen 66H, Creatinine 7.3H, Estimat Glomerular Filtration Rate 5.6, Glucose Level 173H , Uric Acid 7.9H, Calcium Level 7.7L, Phosphorus Level 6.8H, Magnesium Level 2.5H, Total Bilirubin 0.4, Gamma Glutamyl Transpeptidase 25, Aspartate Amino Transf (AST/SGOT) 45H, Alanine Aminotransferase (ALT/SGPT) 30, Alkaline Phosphatase 137H, Ammonia 33H, C-Reactive Protein, Quantitative 29.6H, Pro-B- Type Natriuretic Peptide 2166H, Total Protein 5.7L, Albumin 1.7L, Globulin 4.0, Albumin/Globulin Ratio 0.4L, Amylase Level 105, Lipase 539H Height (Feet): 5 Height (Inches): 4.00 Weight (Pounds): 230 Rebecca Schroeder MD Nov 26, 2019 12:09
--- NOTE | 2019-11-26 12:30 | Nephrology Progress Note ---
Assessment/Plan Problem List: (1) ARF (acute renal failure) (2) Sepsis (3) CAP (community acquired pneumonia) (4) Hyperkalemia (5) Encephalopathy acute (6) Anemia (7) Alcohol abuse Assessment: Long history as per daughter (8) Serum lipase elevation (9) Obesity (BMI 30-39.9) (10) Fatty liver Assessment Acute renal failure and hyperkalemia Most likely underlying chronic kidney disease Sepsis, pneumonia Toxic metabolic encephalopathy Severe anemia Morbid obesity Acute hypoxemic respiratory failure Elevated lipase possible pancreatitis Enlarged pelvic lymph nodes Anasarca History of EtOH abuse Possible psychiatric disorder Plan November 25. Patient was dialyzed 2 days in a row. Will order dialysis tomorrow. Leukocytosis persists. Patient on antibiotics. November 24: Patient was dialyzed yesterday. Serum potassium now within normal range. ABG improved. Discussed with RN. IV changed. Dialysis ordered again today. IV thiamine started. Ativan for agitation ordered. Recheck labs tomorrow. Continue per consultants. Amphojel as phosphorus binder also started. Previously: Anemia work-up ordered IV Venofer, subcu Epogen ordered Continue to monitor renal parameters Per orders Subjective ROS Limited/Unobtainable: No Constitutional: Reports: malaise Objective Objective Current Medications Medications (Trade) Dose Ordered Sig/Brina Route PRN Reason Start Time Stop Time Status Last Admin Dose Admin Albuterol/ Ipratropium (Albuterol/ Ipratropium) 3 ml Q4H PRN HHN Shortness of Breath 11/25/19 18:30 11/29/19 18:29 Albuterol/ Ipratropium (Albuterol/ Ipratropium) 3 ml Q4H PRN HHN sob 11/25/19 19:00 11/30/19 18:59 Aluminum Hydroxide (Amphojel) 1,920 mg Q6H ORAL 11/25/19 22:00 12/25/19 09:59 11/26/19 09:47 Chlorhexidine Gluconate (Shonna-Hex 2%) 1 applic DAILY@1999 TOPIC 11/26/19 20:00 02/24/20 19:59 Dextrose/Sodium Chloride 1,000 ml @ 75 mls/hr [id number] IV 11/25/19 18:30 12/25/19 08:44 11/26/19 08:55 Docusate Sodium (Colace) 100 mg THREE TIMES A DAY ORAL 11/26/19 09:00 12/25/19 08:59 11/26/19 09:47 Epoetin Zay (Epoetin Zay(ESRD on dialysis)) 10,000 unit SUBQ 11/26/19 21:00 02/24/20 20:59 Iron Sucrose 100 mg/Sodium Chloride 60 ml @ 240 mls/hr BEDTIME IV 11/25/19 21:00 11/29/19 21:14 11/25/19 21:49 Linezolid (Zyvox) 600 mg EVERY 12 HOURS ORAL 11/26/19 12:00 12/01/19 11:59 Lorazepam (Ativan 2mg/ml 1ml) 1 mg Q4H PRN IV For Anxiety 11/25/19 18:45 12/02/19 10:44 Morphine Sulfate (Morphine Sulfate) 1 mg Q8H PRN IVP For Pain 11/25/19 18:30 12/02/19 18:29 Pantoprazole (Protonix) 40 mg Q12HR IVP 11/25/19 21:00 12/24/19 10:59 11/26/19 09:46 Piperacillin Sod/ Tazobactam Sod 2.25 gm/Dextrose 55 ml @ 110 mls/hr Q8HR@0200,1000,1800 IV 11/26/19 02:00 12/01/19 09:59 11/26/19 09:47 Thiamine HCl 100 mg/Dextrose 56 ml @ 112 mls/hr Q24H IVPB 11/26/19 12:00 12/25/19 11:59 Laboratory Tests Test 11/26/19 03:38 White Blood Count 25.9 K/UL (4.8-10.8) *H Red Blood Count 3.47 M/UL (4.20-5.40) L Hemoglobin 7.3 G/DL (12.0-16.0) L Hematocrit 23.4 % (37.0-47.0) L Mean Corpuscular Volume 68 FL (80-99) L Mean Corpuscular Hemoglobin 21.0 PG (27.0-31.0) L Mean Corpuscular Hemoglobin Concent 31.1 G/DL (32.0-36.0) L Red Cell Distribution Width 22.6 % (11.6-14.8) H Platelet Count 178 K/UL (150-450) Mean Platelet Volume 5.3 FL (6.5-10.1) L Neutrophils (%) (Auto) % (45.0-75.0) Lymphocytes (%) (Auto) % (20.0-45.0) Monocytes (%) (Auto) % (1.0-10.0) Eosinophils (%) (Auto) % (0.0-3.0) Basophils (%) (Auto) % (0.0-2.0) Differential Total Cells Counted 100 Neutrophils % (Manual) 90 % (45-75) H Lymphocytes % (Manual) 3 % (20-45) L Monocytes % (Manual) 7 % (1-10) Eosinophils % (Manual) 0 % (0-3) Basophils % (Manual) 0 % (0-2) Band Neutrophils 0 % (0-8) Platelet Estimate Adequate Platelet Morphology Normal Polychromasia 1+ Hypochromasia 1+ Anisocytosis 3+ Microcytosis 2+ Sodium Level 144 MMOL/L (136-145) Potassium Level 4.1 MMOL/L (3.5-5.1) Chloride Level 104 MMOL/L (98-107) Carbon Dioxide Level 32 MMOL/L (21-32) Anion Gap 8 mmol/L (5-15) Blood Urea Nitrogen 66 mg/dL (7-18) H Creatinine 7.3 MG/DL (0.55-1.30) H Estimat Glomerular Filtration Rate 5.6 mL/min (>60) Glucose Level 173 MG/DL (74-106) H Uric Acid 7.9 MG/DL (2.6-7.2) H Calcium Level 7.7 MG/DL (8.5-10.1) L Phosphorus Level 6.8 MG/DL (2.5-4.9) H Magnesium Level 2.5 MG/DL (1.8-2.4) H Total Bilirubin 0.4 MG/DL (0.2-1.0) Gamma Glutamyl Transpeptidase 25 U/L (5-85) Aspartate Amino Transf (AST/SGOT) 45 U/L (15-37) H Alanine Aminotransferase (ALT/SGPT) 30 U/L (12-78) Alkaline Phosphatase 137 U/L (46-116) H Ammonia 33 umol/L (11-32) H C-Reactive Protein, Quantitative 29.6 mg/dL (0.00-0.90) H Pro-B-Type Natriuretic Peptide 2166 pg/mL (0-125) H Total Protein 5.7 G/DL (6.4-8.2) L Albumin 1.7 G/DL (3.4-5.0) L Globulin 4.0 g/dL Albumin/Globulin Ratio 0.4 (1.0-2.7) L Amylase Level 105 U/L (25-115) Lipase 539 U/L (73-393) H Last 24 Hour Vital Signs Date Time Temp Pulse Resp B/P (MAP) Pulse Ox O2 Delivery O2 Flow Rate FiO2 11/26/19 08:00 97.7 88 22 121/68 (85) 96 11/26/19 08:00 69 11/26/19 08:00 Nasal Cannula 2.0 11/26/19 08:00 2.0 11/26/19 07:50 98 Nasal Cannula 2.0 28 11/26/19 04:00 97.3 90 22 108/66 (80) 98 11/26/19 04:00 Bi-pap 11/26/19 03:28 71 11/26/19 03:19 45 11/26/19 03:17 68 15 97 45 11/26/19 00:00 Bi-pap 11/26/19 00:00 97.3 90 22 128/73 (91) 98 11/26/19 00:00 50 11/25/19 23:30 76 11/25/19 23:23 91 17 99 50 11/25/19 20:00 50 11/25/19 20:00 97.0 83 21 107/65 (79) 99 11/25/19 20:00 Bi-pap 11/25/19 20:00 86 11/25/19 19:45 96 35 95 50 11/25/19 19:09 98 Venturi Mask 8.0 40 11/25/19 17:00 98.3 11/25/19 17:00 83 21 144/70 (94) 96 11/25/19 16:00 98 21 115/76 (89) 98 11/25/19 16:00 8.0 40 11/25/19 16:00 Bi-pap 11/25/19 15:46 98 11/25/19 15:00 89 29 135/61 (85) 96 11/25/19 14:00 99 26 127/56 (79) 96 11/25/19 13:17 119/56 11/25/19 13:00 97 22 119/56 (77) 97 Intake and Output 11/25/19 11/26/19 19:00 07:00 Intake Total 525 ml 115 ml Output Total 8 ml 5 ml Balance 517 ml 110 ml IV Total 525 ml 115 ml Output Urine Total 8 ml 5 ml Hemodialysis UF 0 ml Laboratory Tests 11/26/19 03:38: White Blood Count 25.9*H, Red Blood Count 3.47L, Hemoglobin 7.3L, Hematocrit 23.4L, Mean Corpuscular Volume 68L, Mean Corpuscular Hemoglobin 21.0L, Mean Corpuscular Hemoglobin Concent 31.1L, Red Cell Distribution Width 22.6H, Platelet Count 178, Mean Platelet Volume 5.3L, Neutrophils (%) (Auto) , Lymphocytes (%) (Auto) , Monocytes (%) (Auto) , Eosinophils (%) (Auto) , Basophils (%) (Auto) , Differential Total Cells Counted 100, Neutrophils % ( Manual) 90H, Lymphocytes % (Manual) 3L, Monocytes % (Manual) 7, Eosinophils % ( Manual) 0, Basophils % (Manual) 0, Band Neutrophils 0, Platelet Estimate Adequate, Platelet Morphology Normal, Polychromasia 1+, Hypochromasia 1+, Anisocytosis 3+, Microcytosis 2+, Sodium Level 144, Potassium Level 4.1, Chloride Level 104, Carbon Dioxide Level 32, Anion Gap 8, Blood Urea Nitrogen 66H, Creatinine 7.3H, Estimat Glomerular Filtration Rate 5.6, Glucose Level 173H , Uric Acid 7.9H, Calcium Level 7.7L, Phosphorus Level 6.8H, Magnesium Level 2.5H, Total Bilirubin 0.4, Gamma Glutamyl Transpeptidase 25, Aspartate Amino Transf (AST/SGOT) 45H, Alanine Aminotransferase (ALT/SGPT) 30, Alkaline Phosphatase 137H, Ammonia 33H, C-Reactive Protein, Quantitative 29.6H, Pro-B- Type Natriuretic Peptide 2166H, Total Protein 5.7L, Albumin 1.7L, Globulin 4.0, Albumin/Globulin Ratio 0.4L, Amylase Level 105, Lipase 539H Height (Feet): 5 Height (Inches): 4.00 Weight (Pounds): 230 General Appearance: no apparent distress, lethargic Cardiovascular: other Respiratory/Chest: decreased breath sounds Abdomen: distended, other - Obese Objective No other change Jean-Pierre Garcia MD Nov 26, 2019 12:30
[2019-11-26] MEDS ORDERED: Lidocaine 1% Plain 30 ml INJ PRN ×2 (12:32→15:24)
[2019-11-26] MEDS: Thiamine HCl 100 MG in D5W 55 ML IVPB SCH (12:48)
[2019-11-26] MEDS ORDERED: Norepinephrine 4mg/NS Premix 250 ML IV SCH (13:30)
[2019-11-26] MEDS ORDERED: Heparin1,000 units/500ml Premix(Conc:2 units/ml) IV PRN (15:24)
[2019-11-26] MEDS ORDERED: Omnipaque-300 100ml vial INJ PRN (15:24)
--- NOTE | 2019-11-26 15:54 | Diagnostic Imaging Report ---
Indication: Chest pain, shortness of breath Technique: A ventilation/perfusion scan was performed. Ventilation was performed utilizing 40 mCi of Technetium 99m-DTPA. Perfusion was performed with 5 mCi of technetium 99m-MAA injected intravenously. Multiple side by side projections obtained. Findings: Perfusion and ventilation imaging is heterogeneous with multiple small areas of blood perfusion and ventilation defects which may be related to known multifocal airspace disease seen on prior CT of the chest 11/24/2019 suggesting multifocal pneumonia. Most perfusion/ventilation defects appear matched however there are some small mismatches. No large focal area of perfusion mismatch. IMPRESSION: Overall findings suggesting intermediate probability for pulmonary embolism. More sensitive evaluation can be made with CT angiogram of the chest as clinically indicated.
--- NOTE | 2019-11-26 17:07 | Pre-Procedure Note/Attestation ---
Pre-Procedure Note/Attestation Complete Prior to Procedure Planned Procedure: not applicable Procedure Narrative: IVC filter Indications for Procedure Pre-Operative Diagnosis: DVT, unable to anticoagulate given severe anemia Attestation I discussed the case in length with patients daughter (Lynne Avila - ) . Discussed risks vs benefits of filter and retrievable vs permanent filters. Risks discussed included, but not limited to, bleeding, infection- including infection of the implanted filter-, caval thrombosis, filter fracture/ migration. All questioned answered and informed consent obtained prior to the procedure. Louis Elias M.D. Nov 26, 2019 17:06
--- NOTE | 2019-11-26 17:15 | Diagnostic Imaging Report ---
Indications: Deep venous thrombosis, contraindication to anticoagulation Technique: Informed consent obtained prior to commencement of the procedure. Prior CT scan reviewed, and demonstrates no obvious caval anomalies . Total sterile technique, including sterile probe cover and sterile gel, sterile gloves, hand hygiene, hat, mask,, sterile gown, large sterile drape, and preparation with 2% chlorhexidine utilized. Local anesthesia with 1% lidocaine. Ultrasound reveals patent compressible Right internal jugular vein. Under real-time ultrasound guidance, puncture right internal jugular vein, passage of a guidewire, into the inferior vena cava, over which was passed a pigtail marker catheter. This was directed into the left common iliac vein, and a limited iliac venogram performed using hand injection of contrast. Catheter was then withdrawn to the level of the iliac venous confluence.. An inferior venacavogram performed, using machine injection of contrast. The images were reviewed. The position of the renal veins was determined. The catheter was then exchanged for the introducer assembly of the Argon option filter. The introducer assembly was advanced further into the inferior vena cava over a guidewire, and the guidewire and dilator were removed. The filter was passed into the into the sheath. It was then positioned into the appropriate position. The filter was then deployed by unsheathing it. The filter position was deemed acceptable. The sheath was removed. Pressure held on the right neck until hemostasis was achieved. The patient tolerated procedure well, without immediate complication. Total fluoroscopy time 182.1 seconds. Total fluoroscopy dose 83.61 mGy. Comparison: None Findings:Left iliac venogram demonstrates no evidence of caval anomaly. Inferior venacavogram demonstrates normal caliber inferior vena cava. Single renal veins. No intracaval thrombus. Completion imaging demonstrates satisfactory filter position, below level of the renal veins and above the level of the iliac venous confluence IMPRESSION: Successful placement of infrarenal inferior vena cava filter, as above. Note that this is a potentially retrievable filter. Patient can be referred for filter removal if/when clinically indicated.
[2019-11-26] MEDS ORDERED: Omnipaque 350 100ml vial INJ PRN (20:00)
--- NOTE | 2019-11-26 20:01 | Cardiology Progress Note ---
Assessment/Plan Assessment/Plan 1. Acute diastolic congestive heart failure, aggressive hemodialysis for decrease of preload. 2. Hyperkalemia, resolved. 3. Alcohol abuse. 4. Acute kidney injury. 5. Dyslipidemia with low HDL. Subjective Subjective Sinus rhythm at rate of 68. Bipap mask, FIO2 of 50%. Objective Last 24 Hour Vital Signs Date Time Temp Pulse Resp B/P (MAP) Pulse Ox O2 Delivery O2 Flow Rate FiO2 11/26/19 16:10 68 25 134/66 (88) 100 11/26/19 16:05 69 30 134/66 (88) 100 11/26/19 16:00 Nasal Cannula 5.0 11/26/19 16:00 65 26 122/73 (89) 100 11/26/19 16:00 5.0 11/26/19 16:00 82 11/26/19 15:27 69 28 15.0 11/26/19 12:00 97.6 82 22 118/62 (80) 98 11/26/19 12:00 Nasal Cannula 5.0 11/26/19 12:00 100 11/26/19 12:00 5.0 11/26/19 08:00 97.7 88 22 121/68 (85) 96 11/26/19 08:00 69 11/26/19 08:00 Nasal Cannula 2.0 11/26/19 08:00 2.0 11/26/19 07:50 98 Nasal Cannula 2.0 28 11/26/19 04:00 97.3 90 22 108/66 (80) 98 11/26/19 04:00 Bi-pap 11/26/19 03:28 71 11/26/19 03:19 45 11/26/19 03:17 68 15 97 45 11/26/19 00:00 Bi-pap 11/26/19 00:00 97.3 90 22 128/73 (91) 98 11/26/19 00:00 50 11/25/19 23:30 76 11/25/19 23:23 91 17 99 50 11/25/19 20:00 50 11/25/19 20:00 97.0 83 21 107/65 (79) 99 11/25/19 20:00 Bi-pap 11/25/19 20:00 86 Intake and Output 11/25/19 11/26/19 19:00 07:00 Intake Total 525 ml 115 ml Output Total 8 ml 5 ml Balance 517 ml 110 ml IV Total 525 ml 115 ml Output Urine Total 8 ml 5 ml Hemodialysis UF 0 ml 2D Echo: LVEF 65%, RVSP 58 mmHg, Grade I LVDD Laboratory Tests Test 11/26/19 03:38 White Blood Count 25.9 K/UL (4.8-10.8) *H Red Blood Count 3.47 M/UL (4.20-5.40) L Hemoglobin 7.3 G/DL (12.0-16.0) L Hematocrit 23.4 % (37.0-47.0) L Mean Corpuscular Volume 68 FL (80-99) L Mean Corpuscular Hemoglobin 21.0 PG (27.0-31.0) L Mean Corpuscular Hemoglobin Concent 31.1 G/DL (32.0-36.0) L Red Cell Distribution Width 22.6 % (11.6-14.8) H Platelet Count 178 K/UL (150-450) Mean Platelet Volume 5.3 FL (6.5-10.1) L Neutrophils (%) (Auto) % (45.0-75.0) Lymphocytes (%) (Auto) % (20.0-45.0) Monocytes (%) (Auto) % (1.0-10.0) Eosinophils (%) (Auto) % (0.0-3.0) Basophils (%) (Auto) % (0.0-2.0) Differential Total Cells Counted 100 Neutrophils % (Manual) 90 % (45-75) H Lymphocytes % (Manual) 3 % (20-45) L Monocytes % (Manual) 7 % (1-10) Eosinophils % (Manual) 0 % (0-3) Basophils % (Manual) 0 % (0-2) Band Neutrophils 0 % (0-8) Platelet Estimate Adequate Platelet Morphology Normal Polychromasia 1+ Hypochromasia 1+ Anisocytosis 3+ Microcytosis 2+ Sodium Level 144 MMOL/L (136-145) Potassium Level 4.1 MMOL/L (3.5-5.1) Chloride Level 104 MMOL/L (98-107) Carbon Dioxide Level 32 MMOL/L (21-32) Anion Gap 8 mmol/L (5-15) Blood Urea Nitrogen 66 mg/dL (7-18) H Creatinine 7.3 MG/DL (0.55-1.30) H Estimat Glomerular Filtration Rate 5.6 mL/min (>60) Glucose Level 173 MG/DL (74-106) H Uric Acid 7.9 MG/DL (2.6-7.2) H Calcium Level 7.7 MG/DL (8.5-10.1) L Phosphorus Level 6.8 MG/DL (2.5-4.9) H Magnesium Level 2.5 MG/DL (1.8-2.4) H Total Bilirubin 0.4 MG/DL (0.2-1.0) Gamma Glutamyl Transpeptidase 25 U/L (5-85) Aspartate Amino Transf (AST/SGOT) 45 U/L (15-37) H Alanine Aminotransferase (ALT/SGPT) 30 U/L (12-78) Alkaline Phosphatase 137 U/L (46-116) H Ammonia 33 umol/L (11-32) H C-Reactive Protein, Quantitative 29.6 mg/dL (0.00-0.90) H Pro-B-Type Natriuretic Peptide 2166 pg/mL (0-125) H Total Protein 5.7 G/DL (6.4-8.2) L Albumin 1.7 G/DL (3.4-5.0) L Globulin 4.0 g/dL Albumin/Globulin Ratio 0.4 (1.0-2.7) L Amylase Level 105 U/L (25-115) Lipase 539 U/L (73-393) H Microbiology Date/Time Source Procedure Growth Status 11/24/19 00:57 Blood Blood Culture - Preliminary NO GROWTH AFTER 48 HOURS Resulted 11/24/19 00:57 Blood Blood Culture - Preliminary NO GROWTH AFTER 48 HOURS Resulted 11/25/19 03:50 Sputum Expectorated Gram Stain Pending Resulted 11/25/19 03:50 Sputum Culture - Preliminary Staphylococcus Aureus Resulted 11/25/19 02:20 Nasopharynx SARS-CoV-2 RdRp Gene Assay - Final Complete 11/24/19 12:00 Nasopharynx SARS-CoV-2 RdRp Gene Assay - Final Complete 11/24/19 00:57 Nasopharynx SARS-CoV-2 RdRp Gene Assay - Final Complete Objective HEENT: Atraumatic, normocephalic. ENT, pupils are equal, round, and reactive to light and accommodation. Positive pallor. NECK: Cannot assess JVP due to obesity and short neck and current use of BiPAP mask. No carotid bruit. Carotid upstrokes 2+ bilaterally. CARDIOVASCULAR: Normal S1, S2. Regular rate and rhythm. No murmurs, gallops, or rubs. PMI is at fourth intercostal space in the midclavicular line. LUNGS: Bilateral crackles, mostly in the bases. ABDOMEN: Soft, nondistended. No hepatosplenomegaly. Positive bowel sounds. EXTREMITIES: No evidence of edema, clubbing, or cyanosis. Adryan Lopez MD Nov 26, 2019 20:01
[2019-11-26] MEDS: Dyna-Hex 2% Top Sol 2oz TOPIC SCH (20:24)
[2019-11-26] MEDS: Iron Sucrose 100 MG in NS 55 ML IV SCH (20:26)
[2019-11-26] MEDS ORDERED: Epoetin Alfa-EPBX(ESRD on dialysis)10,000 unit/ml vial SUBQ SCH (21:00)
[2019-11-26] MEDS: Epoetin Alfa-EPBX(ESRD on dialysis)10,000 unit/ml vial SUBQ SCH (21:02)
[2019-11-27] VITALS: BP 105/55
[2019-11-27] MEDS: Piperacillin/Tazobactam 2.25 GM in D5W 55 ML IV SCH ×3 (01:14→18:53)
[2019-11-27 04:00] VITALS: BP 116/55
[2019-11-27 04:43] LABS: HEMATOCRIT 25.5 % (37.0-47.0); MEAN CORPUSCULAR VOLUME 71 FL (80-99); PLATELET COUNT 151 K/UL (150-450); RED BLOOD COUNT 3.62 M/UL (4.20-5.40); RED CELL DISTRIBUTION WIDTH 24.1 % (11.6-14.8)
[2019-11-27] MEDS: Aluminum Hydroxide Gel Susp 15ml ORAL SCH ×4 (04:48→21:52)
[2019-11-27 04:59] LABS: WHITE BLOOD COUNT 22.7 K/UL (4.8-10.8)
[2019-11-27 05:03] LABS: ALANINE AMINOTRANSFERASE 24 U/L (12-78); ALBUMIN 1.6 G/DL (3.4-5.0); ALBUMIN/GLOBULIN RATIO 0.4 (1.0-2.7); ALKALINE PHOSPHATASE 136 U/L (46-116); AMYLASE 69 U/L (25-115); ANION GAP 9 mmol/L (5-15); ASPARTATE AMINO TRANSFERASE 36 U/L (15-37); BILIRUBIN,TOTAL 0.4 MG/DL (0.2-1.0); BLOOD UREA NITROGEN 76 mg/dL (7-18); CALCIUM 7.6 MG/DL (8.5-10.1); CARBON DIOXIDE 30 MMOL/L (21-32); CHLORIDE 102 MMOL/L (98-107); CREATININE 7.8 MG/DL (0.55-1.30); POTASSIUM 4.2 MMOL/L (3.5-5.1); SODIUM 141 MMOL/L (136-145)
[2019-11-27 05:05] LABS: AMMONIA 32 umol/L (11-32)
[2019-11-27 08:00] VITALS: BP 113/58
[2019-11-27] MEDS ORDERED: HYDROcodone/Acetamin 5/325 tab ORAL PRN (08:30)
[2019-11-27] MEDS ORDERED: Acetaminophen 650mg/20.3ml NG PRN (08:30)
[2019-11-27] MEDS: Pantoprazole Inj IVP SCH (09:00)
[2019-11-27] MEDS: Docusate 100mg cap ORAL SCH ×3 (09:00→18:00)
--- NOTE | 2019-11-27 09:29 | Pulmonology Progress Note ---
Carlita Brewster [facility] 11/27/19 0929: Subjective ROS Limited/Unobtainable: No Allergies: Coded Allergies: No Known Allergies (Unverified , 11/24/19) Subjective on 40% VM, interm SOB, no CP s/p IVC filter 11/25 VQ scan -> intermediate probability for pulmonary embolism. afebrile, still persistent leucocytosis Objective Last 24 Hour Vital Signs Date Time Temp Pulse Resp B/P (MAP) Pulse Ox O2 Delivery O2 Flow Rate FiO2 11/27/19 08:00 97.7 74 22 113/58 (76) 96 11/27/19 08:00 8.0 40 11/27/19 04:00 97.3 72 26 116/55 (75) 97 11/27/19 04:00 8.0 40 11/27/19 04:00 Venturi Mask 8.0 11/27/19 03:41 74 11/27/19 00:00 97.9 71 26 105/55 (72) 95 11/27/19 00:00 Nasal Cannula 5.0 11/27/19 00:00 76 11/26/19 20:00 Nasal Cannula 5.0 11/26/19 20:00 97.0 79 22 108/39 (62) 95 11/26/19 20:00 5.0 11/26/19 19:03 76 11/26/19 16:10 68 25 134/66 (88) 100 11/26/19 16:05 69 30 134/66 (88) 100 11/26/19 16:00 Nasal Cannula 5.0 11/26/19 16:00 65 26 122/73 (89) 100 11/26/19 16:00 5.0 11/26/19 16:00 82 11/26/19 15:27 69 28 15.0 11/26/19 12:00 97.6 82 22 118/62 (80) 98 11/26/19 12:00 Nasal Cannula 5.0 11/26/19 12:00 100 11/26/19 12:00 5.0 Intake and Output 11/26/19 11/27/19 19:00 07:00 Intake Total 971 ml 1135 ml Output Total 10 ml Balance 961 ml 1135 ml Intake Oral 270 ml IV Total 691 ml 865 ml Blood Product 280 ml Output Urine Total 10 ml Objective General Appearance: [place] Citizen speaking, in NAD, calm, obese female Lines, tubes and drains: peripheral, also CL via R femoral ->HD catheter HEENT: normocephalic, atraumatic, anicteric, mucous membranes moist Neck: non-tender, supple Respiratory/Chest: no accessory muscle use, few crackles at bases Cardiovascular/Chest: normal peripheral pulses, normal rate, regular rhythm Abdomen: normal bowel sounds, soft - obese, non tender Extremities: normal range of motion, non-tender, no calf tenderness, +1 edema BLE Neurologic: no motor/sensory deficits, alert, responsive but somewhat confused Musculoskeletal: normal muscle bulk Microbiology Date/Time Source Procedure Growth Status 11/25/19 03:50 Sputum Expectorated Gram Stain - Final Resulted 11/25/19 03:50 Sputum Culture - Preliminary Staphylococcus Aureus - Mrsa Usual Respiratory Nabila Resulted 11/25/19 02:20 Nasopharynx SARS-CoV-2 RdRp Gene Assay - Final Complete 11/24/19 12:00 Nasopharynx SARS-CoV-2 RdRp Gene Assay - Final Complete 11/26/19 13:20 Indwelling Cath Urine Culture - Preliminary Resulted Laboratory Tests 11/27/19 04:00: White Blood Count 22.7*H, Red Blood Count 3.62L, Hemoglobin 8.0L, Hematocrit 25.5L, Mean Corpuscular Volume 71L, Mean Corpuscular Hemoglobin 22.2L, Mean Corpuscular Hemoglobin Concent 31.4L, Red Cell Distribution Width 24.1H, Platelet Count 151, Mean Platelet Volume 5.7L, Neutrophils (%) (Auto) , Lymphocytes (%) (Auto) , Monocytes (%) (Auto) , Eosinophils (%) (Auto) , Basophils (%) (Auto) , Differential Total Cells Counted 100, Neutrophils % ( Manual) 87H, Lymphocytes % (Manual) 6L, Monocytes % (Manual) 7, Eosinophils % ( Manual) 0, Basophils % (Manual) 0, Band Neutrophils 0, Platelet Estimate Adequate, Platelet Morphology Normal, Anisocytosis 1+, Sodium Level 141, Potassium Level 4.2, Chloride Level 102, Carbon Dioxide Level 30, Anion Gap 9, Blood Urea Nitrogen 76H, Creatinine 7.8H, Estimat Glomerular Filtration Rate 5.1 , Glucose Level 154H, Lactic Acid Level 1.80, Calcium Level 7.6L, Total Bilirubin 0.4, Aspartate Amino Transf (AST/SGOT) 36, Alanine Aminotransferase ( ALT/SGPT) 24, Alkaline Phosphatase 136H, Ammonia 32, Lactate Dehydrogenase 422H , Total Protein 5.5L, Albumin 1.6L, Globulin 3.9, Albumin/Globulin Ratio 0.4L, Amylase Level 69, Lipase 478H, HIV (1&2) Antibody Rapid Negative Current Medications Medications (Trade) Dose Ordered Sig/Brina Route PRN Reason Start Time Stop Time Status Last Admin Dose Admin Acetaminophen (Tylenol) 650 mg Q8H PRN NG Mild Pain (Pain Scale 1-3) 11/27/19 08:30 12/27/19 08:29 Acetaminophen/ Hydrocodone Bitart (Chana 10/325) 1 tab Q8H PRN ORAL Severe Pain (Pain Scale 7-10) 11/27/19 08:30 12/04/19 08:29 Acetaminophen/ Hydrocodone Bitart (Chana 5/325) 1 tab Q8H PRN ORAL Moderate Pain (Pain Scale 4-6) 11/27/19 08:30 12/04/19 08:29 Albuterol/ Ipratropium (Albuterol/ Ipratropium) 3 ml Q4H PRN HHN Shortness of Breath 11/25/19 18:30 11/29/19 18:29 Albuterol/ Ipratropium (Albuterol/ Ipratropium) 3 ml Q4H PRN HHN sob 11/25/19 19:00 11/30/19 18:59 Aluminum Hydroxide (Amphojel) 1,920 mg Q6H ORAL 11/25/19 22:00 12/25/19 09:59 11/27/19 04:48 Chlorhexidine Gluconate (Shonna-Hex 2%) 1 applic DAILY@2000 TOPIC 11/26/19 20:00 02/24/20 19:59 11/26/19 20:24 Dextrose/Sodium Chloride 1,000 ml @ 75 mls/hr [id number] IV 11/25/19 18:30 12/25/19 08:44 11/26/19 20:27 Docusate Sodium (Colace) 100 mg THREE TIMES A DAY ORAL 11/26/19 09:00 12/25/19 08:59 11/27/19 09:00 Epoetin Zay (Epoetin Zay(ESRD on dialysis)) 10,000 unit TUE-TUE-TUE SUBQ 11/26/19 21:00 02/24/20 20:59 11/26/19 21:02 Iohexol (OMNIPAQUE-300 100ml) 100 ml ONCE PRN INJ RADIOLOGY 11/26/19 15:24 11/28/19 15:23 Iohexol (Omnipaque 350 100ml) 100 ml NOW PRN INJ Radiology Procedure 11/26/19 20:00 11/28/19 19:46 Iron Sucrose 100 mg/Sodium Chloride 60 ml @ 240 mls/hr BEDTIME IV 11/25/19 21:00 11/29/19 21:14 11/26/19 20:26 Linezolid (Zyvox) 600 mg EVERY 12 HOURS ORAL 11/26/19 12:00 12/01/19 11:59 11/27/19 09:00 Lorazepam (Ativan 2mg/ml 1ml) 1 mg Q4H PRN IV For Anxiety 11/25/19 18:45 12/02/19 10:44 Morphine Sulfate (Morphine Sulfate) 1 mg Q8H PRN IVP For Pain 11/25/19 18:30 12/02/19 18:29 Pantoprazole (Protonix) 40 mg Q12HR IVP 11/25/19 21:00 12/24/19 10:59 11/27/19 09:00 Piperacillin Sod/ Tazobactam Sod 2.25 gm/Dextrose 55 ml @ 110 mls/hr Q8HR@0200,1000,1800 IV 11/26/19 02:00 12/01/19 09:59 11/27/19 01:14 Thiamine HCl 100 mg/Dextrose 56 ml @ 112 mls/hr Q24H IVPB 11/26/19 12:00 12/25/19 11:59 11/26/19 12:48 Assessment/Plan Assessment/Plan ASSESSMENT Sepsis Acute hypoxemic respiratory failure - Acute toxic metabolic encephalopathy ( multifactorial due to ARF, sepsis) Acute renal failure , requiring start of HD Acute DVT LLE common femoral to proximal superficial veins , r/o PE Possible UTI VEIN. Hyperkalemia Severe pulmonary HTN Anemia Elevated lipase, possible pancreatitis Pelvic LAD Anasarca History of EtOH abuse Possible psychiatric disorder PLAN OF CARE LEOBARDO supplemental O2 titrate to keep sat above 92%, resp status improved after HD, now back on 40 %VM fup with CXR pulm toilet SCX + MRSA hx of recent resp illness empiric abx per ID recs-> Zosyn persistent leukocytosis, no fevers doubt PNA given clear CT chest SOB and resp distress most likely were to fluid overload 2 to acute renal failure, and now acute DVT , r/o PE Venous Duplex BLE + acute DVT LEFT COMMON FEMORAL TO PROXIMAL SUPERFICIAL FEMORAL VEINs. unable to start a/coagulation given Hgb 7.3 stat VQ scan 11/25 with intermediate probability for pulmonary embolism. s/p IVC filter 11/25 CTA chest today chiquis will need ac if + s/p 2 u PRBC monitor HH with goal to keep Hg above 7,s/p 2 u PRBC 11/23, on EPO and IV iron anemia w/up stool OB rapid COVID 19 11/23 x 2 - NGT rapid COVID 11/24 NGT BCX 11/23 NGTD ? UTI UCX NGT IVF further management of ARF and hyper K as per lobby attendant - bicarb stabilized s/p HD via R fem temp HD catheter, placed by surgeon creat trending down monitor volumes ECHO with pEF 65% and RVSP of 58 c/w severe pulm HTN cardiac monitoring-SR lipase with trend up, LFT slightly down; monitor hep panel abd US, given enlarged lymph nodes-> fatty liver with a small septated cyst. Gallstones. The spleen, left kidney, CBD, pancreas ,aorta and cava not well defined. lipase and AST trending down thank you for consult Reece Peters MD 11/27/19 2151: Subjective Allergies: Coded Allergies: No Known Allergies (Unverified , 11/24/19) Assessment/Plan Assessment/Plan Patient seen and examined with [facility]. Agree with above A&P as it reflects our joint deliberations. Carlita Brewster NP Nov 27, 2019 09:29 Reece Peters MD Nov 27, 2019 21:51
--- NOTE | 2019-11-27 10:30 | Nephrology Progress Note ---
Assessment/Plan Problem List: (1) ARF (acute renal failure) (2) Sepsis (3) CAP (community acquired pneumonia) (4) Hyperkalemia (5) Encephalopathy acute (6) Anemia (7) Alcohol abuse Assessment: Long history as per daughter (8) Serum lipase elevation (9) Obesity (BMI 30-39.9) (10) Fatty liver Assessment Acute renal failure and hyperkalemia Most likely underlying chronic kidney disease Sepsis, pneumonia Toxic metabolic encephalopathy Severe anemia Morbid obesity Acute hypoxemic respiratory failure Elevated lipase possible pancreatitis Enlarged pelvic lymph nodes Anasarca History of EtOH abuse Possible psychiatric disorder Plan November 26: Due for dialysis today. Leukocytosis persists. Continue per consultants. November 25. Patient was dialyzed 2 days in a row. Will order dialysis tomorrow. Leukocytosis persists. Patient on antibiotics. November 24: Patient was dialyzed yesterday. Serum potassium now within normal range. ABG improved. Discussed with RN. IV changed. Dialysis ordered again today. IV thiamine started. Ativan for agitation ordered. Recheck labs tomorrow. Continue per consultants. Amphojel as phosphorus binder also started. Previously: Anemia work-up ordered IV Venofer, subcu Epogen ordered Continue to monitor renal parameters Per orders Subjective ROS Limited/Unobtainable: No Constitutional: Reports: malaise, weakness Objective Objective Last 24 Hour Vital Signs Date Time Temp Pulse Resp B/P (MAP) Pulse Ox O2 Delivery O2 Flow Rate FiO2 11/27/19 08:00 97.7 74 22 113/58 (76) 96 11/27/19 08:00 78 11/27/19 08:00 8.0 40 11/27/19 07:30 98 Venturi Mask 8.0 40 11/27/19 04:00 97.3 72 26 116/55 (75) 97 11/27/19 04:00 8.0 40 11/27/19 04:00 Venturi Mask 8.0 11/27/19 03:41 74 11/27/19 00:00 97.9 71 26 105/55 (72) 95 11/27/19 00:00 Nasal Cannula 5.0 11/27/19 00:00 76 11/26/19 20:00 Nasal Cannula 5.0 11/26/19 20:00 97.0 79 22 108/39 (62) 95 11/26/19 20:00 5.0 11/26/19 19:03 76 11/26/19 16:10 68 25 134/66 (88) 100 11/26/19 16:05 69 30 134/66 (88) 100 11/26/19 16:00 Nasal Cannula 5.0 11/26/19 16:00 65 26 122/73 (89) 100 11/26/19 16:00 5.0 11/26/19 16:00 82 11/26/19 15:27 69 28 15.0 11/26/19 12:00 97.6 82 22 118/62 (80) 98 11/26/19 12:00 Nasal Cannula 5.0 11/26/19 12:00 100 11/26/19 12:00 5.0 Intake and Output 11/26/19 11/27/19 19:00 07:00 Intake Total 971 ml 1135 ml Output Total 10 ml Balance 961 ml 1135 ml Intake Oral 270 ml IV Total 691 ml 865 ml Blood Product 280 ml Output Urine Total 10 ml Laboratory Tests 11/27/19 04:00: White Blood Count 22.7*H, Red Blood Count 3.62L, Hemoglobin 8.0L, Hematocrit 25.5L, Mean Corpuscular Volume 71L, Mean Corpuscular Hemoglobin 22.2L, Mean Corpuscular Hemoglobin Concent 31.4L, Red Cell Distribution Width 24.1H, Platelet Count 151, Mean Platelet Volume 5.7L, Neutrophils (%) (Auto) , Lymphocytes (%) (Auto) , Monocytes (%) (Auto) , Eosinophils (%) (Auto) , Basophils (%) (Auto) , Differential Total Cells Counted 100, Neutrophils % ( Manual) 87H, Lymphocytes % (Manual) 6L, Monocytes % (Manual) 7, Eosinophils % ( Manual) 0, Basophils % (Manual) 0, Band Neutrophils 0, Platelet Estimate Adequate, Platelet Morphology Normal, Anisocytosis 1+, Sodium Level 141, Potassium Level 4.2, Chloride Level 102, Carbon Dioxide Level 30, Anion Gap 9, Blood Urea Nitrogen 76H, Creatinine 7.8H, Estimat Glomerular Filtration Rate 5.1 , Glucose Level 154H, Lactic Acid Level 1.80, Calcium Level 7.6L, Total Bilirubin 0.4, Aspartate Amino Transf (AST/SGOT) 36, Alanine Aminotransferase ( ALT/SGPT) 24, Alkaline Phosphatase 136H, Ammonia 32, Lactate Dehydrogenase 422H , Total Protein 5.5L, Albumin 1.6L, Globulin 3.9, Albumin/Globulin Ratio 0.4L, Amylase Level 69, Lipase 478H, HIV (1&2) Antibody Rapid Negative Height (Feet): 5 Height (Inches): 4.00 Weight (Pounds): 247 General Appearance: no apparent distress, lethargic, confused Cardiovascular: normal rate Respiratory/Chest: decreased breath sounds Abdomen: soft Objective No other change Jean-Pierre Garcia MD Nov 27, 2019 10:30
--- NOTE | 2019-11-27 10:36 | General Progress Note ---
Assessment/Plan Assessment/Plan: 1. Acute renal failure. 2. Leukocytosis. 3. History of alcohol abuse. 4. Profound microcytic anemia. 5. Prior history of possible psychiatric disorder. 6. Elevated lipase. 7. Mild transaminitis. 8. Pelvic lymphadenopathy. 9. obesity on BIPAP no bm fu labs repeat labs including lipase tomorrow Subjective ROS Limited/Unobtainable: No Allergies: Coded Allergies: No Known Allergies (Unverified , 11/24/19) Subjective more alert Objective Last 24 Hour Vital Signs Date Time Temp Pulse Resp B/P (MAP) Pulse Ox O2 Delivery O2 Flow Rate FiO2 11/27/19 08:00 97.7 74 22 113/58 (76) 96 11/27/19 08:00 78 11/27/19 08:00 8.0 40 11/27/19 07:30 98 Venturi Mask 8.0 40 11/27/19 04:00 97.3 72 26 116/55 (75) 97 11/27/19 04:00 8.0 40 11/27/19 04:00 Venturi Mask 8.0 11/27/19 03:41 74 11/27/19 00:00 97.9 71 26 105/55 (72) 95 11/27/19 00:00 Nasal Cannula 5.0 11/27/19 00:00 76 11/26/19 20:00 Nasal Cannula 5.0 11/26/19 20:00 97.0 79 22 108/39 (62) 95 11/26/19 20:00 5.0 11/26/19 19:03 76 11/26/19 16:10 68 25 134/66 (88) 100 11/26/19 16:05 69 30 134/66 (88) 100 11/26/19 16:00 Nasal Cannula 5.0 11/26/19 16:00 65 26 122/73 (89) 100 11/26/19 16:00 5.0 11/26/19 16:00 82 11/26/19 15:27 69 28 15.0 11/26/19 12:00 97.6 82 22 118/62 (80) 98 11/26/19 12:00 Nasal Cannula 5.0 11/26/19 12:00 100 11/26/19 12:00 5.0 Intake and Output 11/26/19 11/27/19 19:00 07:00 Intake Total 971 ml 1135 ml Output Total 10 ml Balance 961 ml 1135 ml Intake Oral 270 ml IV Total 691 ml 865 ml Blood Product 280 ml Output Urine Total 10 ml Laboratory Tests 11/27/19 04:00: White Blood Count 22.7*H, Red Blood Count 3.62L, Hemoglobin 8.0L, Hematocrit 25.5L, Mean Corpuscular Volume 71L, Mean Corpuscular Hemoglobin 22.2L, Mean Corpuscular Hemoglobin Concent 31.4L, Red Cell Distribution Width 24.1H, Platelet Count 151, Mean Platelet Volume 5.7L, Neutrophils (%) (Auto) , Lymphocytes (%) (Auto) , Monocytes (%) (Auto) , Eosinophils (%) (Auto) , Basophils (%) (Auto) , Differential Total Cells Counted 100, Neutrophils % ( Manual) 87H, Lymphocytes % (Manual) 6L, Monocytes % (Manual) 7, Eosinophils % ( Manual) 0, Basophils % (Manual) 0, Band Neutrophils 0, Platelet Estimate Adequate, Platelet Morphology Normal, Anisocytosis 1+, Sodium Level 141, Potassium Level 4.2, Chloride Level 102, Carbon Dioxide Level 30, Anion Gap 9, Blood Urea Nitrogen 76H, Creatinine 7.8H, Estimat Glomerular Filtration Rate 5.1 , Glucose Level 154H, Lactic Acid Level 1.80, Calcium Level 7.6L, Total Bilirubin 0.4, Aspartate Amino Transf (AST/SGOT) 36, Alanine Aminotransferase ( ALT/SGPT) 24, Alkaline Phosphatase 136H, Ammonia 32, Lactate Dehydrogenase 422H , Total Protein 5.5L, Albumin 1.6L, Globulin 3.9, Albumin/Globulin Ratio 0.4L, Amylase Level 69, Lipase 478H, HIV (1&2) Antibody Rapid Negative Height (Feet): 5 Height (Inches): 4.00 Weight (Pounds): 247 General Appearance: lethargic EENT: normal ENT inspection Neck: supple Cardiovascular: normal rate Respiratory/Chest: decreased breath sounds Abdomen: normal bowel sounds, non tender, soft Extremities: non-tender Ministerio Davis MD Nov 27, 2019 10:36
--- NOTE | 2019-11-27 10:50 | Surgery Progress Note ---
Surgery Progress Note Subjective Procedure Performed right femoral temporary Hemodialysis catheter insertion Additional Comments dementia swallow eval today no n/v labs noted Objective Last 24 Hour Vital Signs Date Time Temp Pulse Resp B/P (MAP) Pulse Ox O2 Delivery O2 Flow Rate FiO2 11/27/19 08:00 97.7 74 22 113/58 (76) 96 11/27/19 08:00 78 11/27/19 08:00 8.0 40 11/27/19 07:30 98 Venturi Mask 8.0 40 11/27/19 04:00 97.3 72 26 116/55 (75) 97 11/27/19 04:00 8.0 40 11/27/19 04:00 Venturi Mask 8.0 11/27/19 03:41 74 11/27/19 00:00 97.9 71 26 105/55 (72) 95 11/27/19 00:00 Nasal Cannula 5.0 11/27/19 00:00 76 11/26/19 20:00 Nasal Cannula 5.0 11/26/19 20:00 97.0 79 22 108/39 (62) 95 11/26/19 20:00 5.0 11/26/19 19:03 76 11/26/19 16:10 68 25 134/66 (88) 100 11/26/19 16:05 69 30 134/66 (88) 100 11/26/19 16:00 Nasal Cannula 5.0 11/26/19 16:00 65 26 122/73 (89) 100 11/26/19 16:00 5.0 11/26/19 16:00 82 11/26/19 15:27 69 28 15.0 11/26/19 12:00 97.6 82 22 118/62 (80) 98 11/26/19 12:00 Nasal Cannula 5.0 11/26/19 12:00 100 11/26/19 12:00 5.0 I&O Intake and Output 11/26/19 11/27/19 19:00 07:00 Intake Total 971 ml 1135 ml Output Total 10 ml Balance 961 ml 1135 ml Intake Oral 270 ml IV Total 691 ml 865 ml Blood Product 280 ml Output Urine Total 10 ml Dressing: other Wound: other Cardiovascular: RSR Respiratory: decreased breath sounds Abdomen: soft, non-tender, present bowel sounds Extremities: no tenderness, no cyanosis Laboratory Tests Test 11/27/19 04:00 White Blood Count 22.7 K/UL (4.8-10.8) *H Red Blood Count 3.62 M/UL (4.20-5.40) L Hemoglobin 8.0 G/DL (12.0-16.0) L Hematocrit 25.5 % (37.0-47.0) L Mean Corpuscular Volume 71 FL (80-99) L Mean Corpuscular Hemoglobin 22.2 PG (27.0-31.0) L Mean Corpuscular Hemoglobin Concent 31.4 G/DL (32.0-36.0) L Red Cell Distribution Width 24.1 % (11.6-14.8) H Platelet Count 151 K/UL (150-450) Mean Platelet Volume 5.7 FL (6.5-10.1) L Neutrophils (%) (Auto) % (45.0-75.0) Lymphocytes (%) (Auto) % (20.0-45.0) Monocytes (%) (Auto) % (1.0-10.0) Eosinophils (%) (Auto) % (0.0-3.0) Basophils (%) (Auto) % (0.0-2.0) Differential Total Cells Counted 100 Neutrophils % (Manual) 87 % (45-75) H Lymphocytes % (Manual) 6 % (20-45) L Monocytes % (Manual) 7 % (1-10) Eosinophils % (Manual) 0 % (0-3) Basophils % (Manual) 0 % (0-2) Band Neutrophils 0 % (0-8) Platelet Estimate Adequate Platelet Morphology Normal Anisocytosis 1+ Sodium Level 141 MMOL/L (136-145) Potassium Level 4.2 MMOL/L (3.5-5.1) Chloride Level 102 MMOL/L (98-107) Carbon Dioxide Level 30 MMOL/L (21-32) Anion Gap 9 mmol/L (5-15) Blood Urea Nitrogen 76 mg/dL (7-18) H Creatinine 7.8 MG/DL (0.55-1.30) H Estimat Glomerular Filtration Rate 5.1 mL/min (>60) Glucose Level 154 MG/DL (74-106) H Lactic Acid Level 1.80 mmol/L (0.4-2.0) Calcium Level 7.6 MG/DL (8.5-10.1) L Total Bilirubin 0.4 MG/DL (0.2-1.0) Aspartate Amino Transf (AST/SGOT) 36 U/L (15-37) Alanine Aminotransferase (ALT/SGPT) 24 U/L (12-78) Alkaline Phosphatase 136 U/L (46-116) H Ammonia 32 umol/L (11-32) Lactate Dehydrogenase 422 U/L (81-234) H Total Protein 5.5 G/DL (6.4-8.2) L Albumin 1.6 G/DL (3.4-5.0) L Globulin 3.9 g/dL Albumin/Globulin Ratio 0.4 (1.0-2.7) L Amylase Level 69 U/L (25-115) Lipase 478 U/L (73-393) H HIV (1&2) Antibody Rapid Negative (NEGATIVE) Plan Problems: (1) Anemia (2) Encephalopathy acute (3) Acute respiratory failure with hypoxia (4) Hyperkalemia (5) Sepsis Assessment & Plan: Leukocytosis anemia hyperkalemia abnormal labs HD catheter placed received dialysis and slowly potassium improved. Plan for repeat dialysis ordered. IV antibiotics per infectious disease Patient is alert awake but confused. Slowly improving No hematoma or bleeding identified Site looks clean We will continue with HD on a sure if renal function will improve may need permacath CT reviewed edema noted lymph nodes noted likely reactive Thank you for let me participate patient's care with follow with recommendations ABDOMEN: Liver: Unremarkable. Gallbladder and bile ducts: Unremarkable. No calcified stones. No ductal dilation. Pancreas: Unremarkable. No ductal dilation. Spleen: Unremarkable. No splenomegaly. Adrenals: Unremarkable. No mass. Kidneys and ureters: Bilateral low-grade hydronephrosis. No radiopaque stones in the urinary tract identified except for nonobstructing 3 mm stone in the inferior pole left kidney. Stomach and bowel: Scattered colonic diverticuli. No obstruction. No mucosal thickening. PELVIS: Appendix: No findings to suggest acute appendicitis. Bladder: The urinary bladder is decompressed by an indwelling Kaminski catheter No stones. Reproductive: Unremarkable as visualized. ABDOMEN and PELVIS: Intraperitoneal space: Unremarkable. No free air. No significant fluid collection. Bones/joints: No acute fracture. No dislocation. Soft tissues: Anasarca. Vasculature: Unremarkable. No abdominal aortic aneurysm. Lymph nodes: Enlarged left superficial inguinal lymph node measuring 2 cm short axis There are bilateral enlarged external iliac lymph nodes, measuring 2.9 cm x 5.1 cm on the left and 2.7 x 2.0 cm on the right. Other findings: Beam hardening from patient's abdominal girth degrades detail. IMPRESSION: 1. Enlarged pelvic lymph nodes could reflect reactive changes from cellulitis in the setting of generalized bony wall edema, or other acute inflammatory changes but neoplasm such as lymphomas not excluded. Correlate clinically. Ultrasound of the pelvis could be considered to help distinguish patient's ovaries from presumed pelvic adenopathy. 2. Mild bilateral hydronephrosis, with a Kaminski catheter in the urinary bladder. Correlate with bladder catheter function. DAILY ESTIMATED NEEDS: Needs based on obesity, ARF + HD/ 67kg abw 22-25 kcals/kg 9620-0357 total kcals 1.2-1.8 w/ HD g protein/kg 81-120 g total protein Fluids per MD NUTRITION DIAGNOSIS: Altered nutrition related lab values R/T ARF, pre-diabetes as evidenced by elev BUN (157 -> 76 trend down), elev creat (142 -> 7.8), elev phos (6.8), elev mag (2.5). A1C of 6.0 w/ elev BGs (154 173 146). 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 * Monitor PO intake and tolerance closely * Nephrovite x 1 as supplement (6) ARF (acute renal failure) (7) CAP (community acquired pneumonia) (8) Serum lipase elevation (9) Obesity (BMI 30-39.9) Angelo Naik Nov 27, 2019 10:50
--- NOTE | 2019-11-27 10:59 | General Progress Note ---
Assessment/Plan Assessment/Plan: S, O: pt is awake , poor historian, seen and examined in step down unit. PHYSICAL EXAMINATION:HEAD AND NECK: Atraumatic and normocephalic. CHEST: Diffuse bronchial breathing sounds.HEART: S1 and S2. Regular rate and rhythm. ABDOMEN: Soft. No organomegaly. Protuberant. No tenderness. MUSCULOSKELETAL: Right inguinal HD- access noted, No gross lateralized motor deficit. It is limited examination as the patient is not cooperative. b/l le edema and tenderness NEUROLOGIC: The patient is delirious. DIAGNOSTIC AND LABORATORY DATA: Imaging, dated November 24 shows b/l dvt Labs, dated November 26 reviwed ASSESSMENT: 1. Severe sepsis. 2. PNA- Bilateral 3. Hypoxemic respiratory failure. 3. Hyperkalemia. 4. End-stage renal disease. 5. CHF, likely diagnosis. 6. Abnormal blood sugar. 7. Acute on chronic Microcytic anemia. 8. GI and DVT prophylaxis. 9. LE DVT- Bilateral PLAN OF CARE: contra indication for anticoagulation . D/W Hemonch regarding IVC notes form ID, Nephrology reviewed S/P IVC filter placement. 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, will proceed with Chest CT-Angio Subjective Allergies: Coded Allergies: No Known Allergies (Unverified , 11/24/19) Objective Last 24 Hour Vital Signs Date Time Temp Pulse Resp B/P (MAP) Pulse Ox O2 Delivery O2 Flow Rate FiO2 11/27/19 08:00 97.7 74 22 113/58 (76) 96 11/27/19 08:00 78 11/27/19 08:00 8.0 40 11/27/19 07:30 98 Venturi Mask 8.0 40 11/27/19 04:00 97.3 72 26 116/55 (75) 97 11/27/19 04:00 8.0 40 11/27/19 04:00 Venturi Mask 8.0 11/27/19 03:41 74 11/27/19 00:00 97.9 71 26 105/55 (72) 95 11/27/19 00:00 Nasal Cannula 5.0 11/27/19 00:00 76 11/26/19 20:00 Nasal Cannula 5.0 11/26/19 20:00 97.0 79 22 108/39 (62) 95 11/26/19 20:00 5.0 11/26/19 19:03 76 11/26/19 16:10 68 25 134/66 (88) 100 11/26/19 16:05 69 30 134/66 (88) 100 11/26/19 16:00 Nasal Cannula 5.0 11/26/19 16:00 65 26 122/73 (89) 100 11/26/19 16:00 5.0 11/26/19 16:00 82 11/26/19 15:27 69 28 15.0 11/26/19 12:00 97.6 82 22 118/62 (80) 98 11/26/19 12:00 Nasal Cannula 5.0 11/26/19 12:00 100 11/26/19 12:00 5.0 Intake and Output 11/26/19 11/27/19 19:00 07:00 Intake Total 971 ml 1135 ml Output Total 10 ml Balance 961 ml 1135 ml Intake Oral 270 ml IV Total 691 ml 865 ml Blood Product 280 ml Output Urine Total 10 ml Laboratory Tests 11/27/19 04:00: White Blood Count 22.7*H, Red Blood Count 3.62L, Hemoglobin 8.0L, Hematocrit 25.5L, Mean Corpuscular Volume 71L, Mean Corpuscular Hemoglobin 22.2L, Mean Corpuscular Hemoglobin Concent 31.4L, Red Cell Distribution Width 24.1H, Platelet Count 151, Mean Platelet Volume 5.7L, Neutrophils (%) (Auto) , Lymphocytes (%) (Auto) , Monocytes (%) (Auto) , Eosinophils (%) (Auto) , Basophils (%) (Auto) , Differential Total Cells Counted 100, Neutrophils % ( Manual) 87H, Lymphocytes % (Manual) 6L, Monocytes % (Manual) 7, Eosinophils % ( Manual) 0, Basophils % (Manual) 0, Band Neutrophils 0, Platelet Estimate Adequate, Platelet Morphology Normal, Anisocytosis 1+, Sodium Level 141, Potassium Level 4.2, Chloride Level 102, Carbon Dioxide Level 30, Anion Gap 9, Blood Urea Nitrogen 76H, Creatinine 7.8H, Estimat Glomerular Filtration Rate 5.1 , Glucose Level 154H, Lactic Acid Level 1.80, Calcium Level 7.6L, Total Bilirubin 0.4, Aspartate Amino Transf (AST/SGOT) 36, Alanine Aminotransferase ( ALT/SGPT) 24, Alkaline Phosphatase 136H, Ammonia 32, Lactate Dehydrogenase 422H , Total Protein 5.5L, Albumin 1.6L, Globulin 3.9, Albumin/Globulin Ratio 0.4L, Amylase Level 69, Lipase 478H, HIV (1&2) Antibody Rapid Negative Height (Feet): 5 Height (Inches): 4.00 Weight (Pounds): 247 Rebecca Schroeder MD Nov 27, 2019 10:59
[2019-11-27 12:00] VITALS: BP 118/55
--- NOTE | 2019-11-27 12:02 | Infectious Diseases Prog Note ---
Assessment/Plan ASSESSMENT: The patient is a 69-year-old female with: 1. Respiratory distress.- SP Bipap- sp NC> VM 40%, 8L 11/26 2. B/l Pneumonia- COVID neg x3 -11/24 sp cx MRSA -11/23 Rapid COVID PCR neg x2; 11/24 rapid COVID PCR neg -11/23 CT chest: Bilateral pneumonia, with greater confluence in the posterior right lower lobe. 3. SEvere Leukocytosis, acute reacted to distress versus sepsis. -on the high 20s-30s -likely multifactorial due to PE/DVT, PNA, pancreaitis, acute renal failure -Abd US: STUDY LIMITED DUE TO BODY HABITUS AND BOWEL GAS. FATTY LIVER WITH A SMALL SEPTATED CYST. GALLSTONES.THE SPLEEN, LEFT KIDNEY, COMMON BILE DUCT AND PANCREAS WELL AORTA AND CAVA ARE NOT WELL DEFINED. -CT abd/p : Enlarged pelvic lymph nodes could reflect reactive changes from cellulitis in the setting of generalized bony wall edema, or other acute inflammatory changes but neoplasm such as lymphomas not excluded. Correlate clinically. Ultrasound of the pelvis could be considered to help distinguish patient's ovaries from presumed pelvic adenopathy.Mild bilateral hydronephrosis , with a Kaminski catheter in the urinary bladder. Correlate with bladder catheter function. 4. Sepsis. 5.r/o Probable UTI. -u/a p, ucx ; ucx p 6. Rule out probable bacteremia. -11/23 BCx NTD 7. L LE DVT and Probable PE -11/25 SP IVC filter placement -v/q scan: Overall findings suggesting intermediate probability for pulmonary embolism. More sensitive evaluation can be made with CT angiogram of the chest as clinically indicated. -v. duplex: STUDY POSITIVE FOR DVT IN THE LEFT COMMON FEMORAL TO PROXIMAL SUPERFICIAL FEMORAL VEIN. 8. Severe acute renal failure; improving- likely underlying CKD -on HD now 9. Acute pancreatitis EtOh abuse PLAN: 1. We will continue the patient on IV Zosyn #4 and add ZYvox #2 for MRSA -11/23 SP CEftriaxone x1, Azythromycin x1, IV Vancomycin x1 2. Monitor blood culture. 3. Monitor urine culture. 4. COVID neg x3 (2 were sent on same day) 5. Monitor lipase. 6. pelvic uS 7. f/u u /a, ucx 8. f/u flow cytometry Based on the patient's clinical course and labs, we will do further recommendations. I have advised nursing staff to keep the patient in insolation until second test. Subjective Allergies: Coded Allergies: No Known Allergies (Unverified , 11/24/19) afebrile now at VM 8L 40% for increased work of breathing wbc improving Bcx NTD VQ scan with intermediate prob of PE; IVC filter was placed yesterday Objective Last 24 Hour Vital Signs Date Time Temp Pulse Resp B/P (MAP) Pulse Ox O2 Delivery O2 Flow Rate FiO2 11/27/19 08:00 97.7 74 22 113/58 (76) 96 11/27/19 08:00 78 11/27/19 08:00 8.0 40 11/27/19 07:30 98 Venturi Mask 8.0 40 11/27/19 04:00 97.3 72 26 116/55 (75) 97 11/27/19 04:00 8.0 40 11/27/19 04:00 Venturi Mask 8.0 11/27/19 03:41 74 11/27/19 00:00 97.9 71 26 105/55 (72) 95 11/27/19 00:00 Nasal Cannula 5.0 11/27/19 00:00 76 11/26/19 20:00 Nasal Cannula 5.0 11/26/19 20:00 97.0 79 22 108/39 (62) 95 11/26/19 20:00 5.0 11/26/19 19:03 76 11/26/19 16:10 68 25 134/66 (88) 100 11/26/19 16:05 69 30 134/66 (88) 100 11/26/19 16:00 Nasal Cannula 5.0 11/26/19 16:00 65 26 122/73 (89) 100 11/26/19 16:00 5.0 11/26/19 16:00 82 11/26/19 15:27 69 28 15.0 11/26/19 12:00 97.6 82 22 118/62 (80) 98 11/26/19 12:00 Nasal Cannula 5.0 11/26/19 12:00 100 11/26/19 12:00 5.0 Height (Feet): 5 Height (Inches): 4.00 Weight (Pounds): 247 HEENT: No pale conjunctivae. No icterus. NECK: No lymphadenopathy. CHEST: Coarse breathing sounds. HEART: S1-S2. ABDOMEN: Obese. EXTREMITIES: No cyanosis at this time. NEUROLOGIC: Awake. Microbiology Date/Time Source Procedure Growth Status 11/25/19 03:50 Sputum Expectorated Gram Stain - Final Resulted 11/25/19 03:50 Sputum Culture - Preliminary Staphylococcus Aureus - Mrsa Usual Respiratory Nabila Resulted 11/25/19 02:20 Nasopharynx SARS-CoV-2 RdRp Gene Assay - Final Complete 11/24/19 12:00 Nasopharynx SARS-CoV-2 RdRp Gene Assay - Final Complete 11/26/19 13:20 Indwelling Cath Urine Culture - Preliminary Resulted Laboratory Tests Test 11/27/19 04:00 White Blood Count 22.7 K/UL (4.8-10.8) *H Red Blood Count 3.62 M/UL (4.20-5.40) L Hemoglobin 8.0 G/DL (12.0-16.0) L Hematocrit 25.5 % (37.0-47.0) L Mean Corpuscular Volume 71 FL (80-99) L Mean Corpuscular Hemoglobin 22.2 PG (27.0-31.0) L Mean Corpuscular Hemoglobin Concent 31.4 G/DL (32.0-36.0) L Red Cell Distribution Width 24.1 % (11.6-14.8) H Platelet Count 151 K/UL (150-450) Mean Platelet Volume 5.7 FL (6.5-10.1) L Neutrophils (%) (Auto) % (45.0-75.0) Lymphocytes (%) (Auto) % (20.0-45.0) Monocytes (%) (Auto) % (1.0-10.0) Eosinophils (%) (Auto) % (0.0-3.0) Basophils (%) (Auto) % (0.0-2.0) Differential Total Cells Counted 100 Neutrophils % (Manual) 87 % (45-75) H Lymphocytes % (Manual) 6 % (20-45) L Monocytes % (Manual) 7 % (1-10) Eosinophils % (Manual) 0 % (0-3) Basophils % (Manual) 0 % (0-2) Band Neutrophils 0 % (0-8) Platelet Estimate Adequate Platelet Morphology Normal Anisocytosis 1+ Sodium Level 141 MMOL/L (136-145) Potassium Level 4.2 MMOL/L (3.5-5.1) Chloride Level 102 MMOL/L (98-107) Carbon Dioxide Level 30 MMOL/L (21-32) Anion Gap 9 mmol/L (5-15) Blood Urea Nitrogen 76 mg/dL (7-18) H Creatinine 7.8 MG/DL (0.55-1.30) H Estimat Glomerular Filtration Rate 5.1 mL/min (>60) Glucose Level 154 MG/DL (74-106) H Lactic Acid Level 1.80 mmol/L (0.4-2.0) Calcium Level 7.6 MG/DL (8.5-10.1) L Total Bilirubin 0.4 MG/DL (0.2-1.0) Aspartate Amino Transf (AST/SGOT) 36 U/L (15-37) Alanine Aminotransferase (ALT/SGPT) 24 U/L (12-78) Alkaline Phosphatase 136 U/L (46-116) H Ammonia 32 umol/L (11-32) Lactate Dehydrogenase 422 U/L (81-234) H Total Protein 5.5 G/DL (6.4-8.2) L Albumin 1.6 G/DL (3.4-5.0) L Globulin 3.9 g/dL Albumin/Globulin Ratio 0.4 (1.0-2.7) L Amylase Level 69 U/L (25-115) Lipase 478 U/L (73-393) H HIV (1&2) Antibody Rapid Negative (NEGATIVE) Current Medications Medications (Trade) Dose Ordered Sig/Brina Route PRN Reason Start Time Stop Time Status Last Admin Dose Admin Acetaminophen (Tylenol) 650 mg Q8H PRN NG Mild Pain (Pain Scale 1-3) 11/27/19 08:30 12/27/19 08:29 Acetaminophen/ Hydrocodone Bitart ([place] 10/325) 1 tab Q8H PRN ORAL Severe Pain (Pain Scale 7-10) 11/27/19 08:30 12/04/19 08:29 Acetaminophen/ Hydrocodone Bitart ([place] 5/325) 1 tab Q8H PRN ORAL Moderate Pain (Pain Scale 4-6) 11/27/19 08:30 12/04/19 08:29 Albuterol/ Ipratropium (Albuterol/ Ipratropium) 3 ml Q4H PRN HHN Shortness of Breath 11/25/19 18:30 11/29/19 18:29 Albuterol/ Ipratropium (Albuterol/ Ipratropium) 3 ml Q4H PRN HHN sob 11/25/19 19:00 11/30/19 18:59 Aluminum Hydroxide (Amphojel) 1,920 mg Q6H ORAL 11/25/19 22:00 12/25/19 09:59 11/27/19 10:55 Chlorhexidine Gluconate (Shonna-Hex 2%) 1 applic DAILY@2000 TOPIC 11/26/19 20:00 02/24/20 19:59 11/26/19 20:24 Docusate Sodium (Colace) 100 mg THREE TIMES A DAY ORAL 11/26/19 09:00 12/25/19 08:59 11/27/19 09:00 Epoetin Zay (Epoetin Zay(ESRD on dialysis)) 10,000 unit TUE-TUE-TUE SUBQ 11/26/19 21:00 02/24/20 20:59 11/26/19 21:02 Iohexol (OMNIPAQUE-300 100ml) 100 ml ONCE PRN INJ RADIOLOGY 11/26/19 15:24 11/28/19 15:23 Iohexol (Omnipaque 350 100ml) 100 ml NOW PRN INJ Radiology Procedure 11/26/19 20:00 11/28/19 19:46 Iron Sucrose 100 mg/Sodium Chloride 60 ml @ 240 mls/hr BEDTIME IV 11/25/19 21:00 11/29/19 21:14 11/26/19 20:26 Linezolid (Zyvox) 600 mg EVERY 12 HOURS ORAL 11/26/19 12:00 12/01/19 11:59 11/27/19 09:00 Lorazepam (Ativan 2mg/ml 1ml) 1 mg Q4H PRN IV For Anxiety 11/25/19 18:45 12/02/19 10:44 Morphine Sulfate (Morphine Sulfate) 1 mg Q8H PRN IVP For Pain 11/25/19 18:30 12/02/19 18:29 Pantoprazole (Protonix) 40 mg DAILY IVP 11/28/19 09:00 8/28/20 08:59 Piperacillin Sod/ Tazobactam Sod 2.25 gm/Dextrose 55 ml @ 110 mls/hr Q8HR@0200,1000,1800 IV 11/26/19 02:00 12/01/19 09:59 11/27/19 10:55 Polyethylene Glycol (Miralax) 17 gm BEDTIME ORAL 11/27/19 21:00 12/27/19 20:59 Thiamine HCl 100 mg/Dextrose 56 ml @ 112 mls/hr Q24H IVPB 11/26/19 12:00 12/25/19 11:59 11/26/19 12:48 Britt Jimenez M.D. Nov 27, 2019 12:02
--- NOTE | 2019-11-27 12:27 | Consultation ---
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 Last 24 Hour Vital Signs Date Time Temp Pulse Resp B/P (MAP) Pulse Ox O2 Delivery O2 Flow Rate FiO2 11/27/19 12:00 97.7 76 30 118/55 (76) 97 11/27/19 12:00 Venturi Mask 8.0 11/27/19 12:00 8.0 40 11/27/19 08:00 97.7 74 22 113/58 (76) 96 11/27/19 08:00 Venturi Mask 8.0 11/27/19 08:00 78 11/27/19 08:00 8.0 40 11/27/19 07:30 98 Venturi Mask 8.0 40 11/27/19 04:00 97.3 72 26 116/55 (75) 97 11/27/19 04:00 8.0 40 11/27/19 04:00 Venturi Mask 8.0 11/27/19 03:41 74 11/27/19 00:00 97.9 71 26 105/55 (72) 95 11/27/19 00:00 Nasal Cannula 5.0 11/27/19 00:00 76 11/26/19 20:00 Nasal Cannula 5.0 11/26/19 20:00 97.0 79 22 108/39 (62) 95 11/26/19 20:00 5.0 11/26/19 19:03 76 11/26/19 16:10 68 25 134/66 (88) 100 11/26/19 16:05 69 30 134/66 (88) 100 11/26/19 16:00 Nasal Cannula 5.0 11/26/19 16:00 65 26 122/73 (89) 100 11/26/19 16:00 5.0 11/26/19 16:00 82 11/26/19 15:27 69 28 15.0 Intake and Output 11/26/19 11/27/19 19:00 07:00 Intake Total 971 ml 1135 ml Output Total 10 ml Balance 961 ml 1135 ml Intake Oral 270 ml IV Total 691 ml 865 ml Blood Product 280 ml Output Urine Total 10 ml Laboratory Tests Test 11/27/19 04:00 White Blood Count 22.7 K/UL (4.8-10.8) *H Red Blood Count 3.62 M/UL (4.20-5.40) L Hemoglobin 8.0 G/DL (12.0-16.0) L Hematocrit 25.5 % (37.0-47.0) L Mean Corpuscular Volume 71 FL (80-99) L Mean Corpuscular Hemoglobin 22.2 PG (27.0-31.0) L Mean Corpuscular Hemoglobin Concent 31.4 G/DL (32.0-36.0) L Red Cell Distribution Width 24.1 % (11.6-14.8) H Platelet Count 151 K/UL (150-450) Mean Platelet Volume 5.7 FL (6.5-10.1) L Neutrophils (%) (Auto) % (45.0-75.0) Lymphocytes (%) (Auto) % (20.0-45.0) Monocytes (%) (Auto) % (1.0-10.0) Eosinophils (%) (Auto) % (0.0-3.0) Basophils (%) (Auto) % (0.0-2.0) Differential Total Cells Counted 100 Neutrophils % (Manual) 87 % (45-75) H Lymphocytes % (Manual) 6 % (20-45) L Monocytes % (Manual) 7 % (1-10) Eosinophils % (Manual) 0 % (0-3) Basophils % (Manual) 0 % (0-2) Band Neutrophils 0 % (0-8) Platelet Estimate Adequate Platelet Morphology Normal Anisocytosis 1+ Sodium Level 141 MMOL/L (136-145) Potassium Level 4.2 MMOL/L (3.5-5.1) Chloride Level 102 MMOL/L (98-107) Carbon Dioxide Level 30 MMOL/L (21-32) Anion Gap 9 mmol/L (5-15) Blood Urea Nitrogen 76 mg/dL (7-18) H Creatinine 7.8 MG/DL (0.55-1.30) H Estimat Glomerular Filtration Rate 5.1 mL/min (>60) Glucose Level 154 MG/DL (74-106) H Lactic Acid Level 1.80 mmol/L (0.4-2.0) Calcium Level 7.6 MG/DL (8.5-10.1) L Total Bilirubin 0.4 MG/DL (0.2-1.0) Aspartate Amino Transf (AST/SGOT) 36 U/L (15-37) Alanine Aminotransferase (ALT/SGPT) 24 U/L (12-78) Alkaline Phosphatase 136 U/L (46-116) H Ammonia 32 umol/L (11-32) Lactate Dehydrogenase 422 U/L (81-234) H Total Protein 5.5 G/DL (6.4-8.2) L Albumin 1.6 G/DL (3.4-5.0) L Globulin 3.9 g/dL Albumin/Globulin Ratio 0.4 (1.0-2.7) L Amylase Level 69 U/L (25-115) Lipase 478 U/L (73-393) H HIV (1&2) Antibody Rapid Negative (NEGATIVE) Microbiology Date/Time Source Procedure Growth Status 11/26/19 13:20 Indwelling Cath Urine Culture - Preliminary Resulted Height (Feet): 5 Height (Inches): 4.00 Weight (Pounds): 247 Medications Current Medications Medications (Trade) Dose Ordered Sig/Brina Route PRN Reason Start Time Stop Time Status Last Admin Dose Admin Acetaminophen (Tylenol) 650 mg Q8H PRN NG Mild Pain (Pain Scale 1-3) 11/27/19 08:30 12/27/19 08:29 Acetaminophen/ Hydrocodone Bitart (Rhine 10/325) 1 tab Q8H PRN ORAL Severe Pain (Pain Scale 7-10) 11/27/19 08:30 12/04/19 08:29 Acetaminophen/ Hydrocodone Bitart (Rhine 5/325) 1 tab Q8H PRN ORAL Moderate Pain (Pain Scale 4-6) 11/27/19 08:30 12/04/19 08:29 Albuterol/ Ipratropium (Albuterol/ Ipratropium) 3 ml Q4H PRN HHN Shortness of Breath 11/25/19 18:30 11/29/19 18:29 Albuterol/ Ipratropium (Albuterol/ Ipratropium) 3 ml Q4H PRN HHN sob 11/25/19 19:00 11/30/19 18:59 Aluminum Hydroxide (Amphojel) 1,920 mg Q6H ORAL 11/25/19 22:00 12/25/19 09:59 11/27/19 10:55 Chlorhexidine Gluconate (Shonna-Hex 2%) 1 applic DAILY@2000 TOPIC 11/26/19 20:00 02/24/20 19:59 11/26/19 20:24 Docusate Sodium (Colace) 100 mg THREE TIMES A DAY ORAL 11/26/19 09:00 12/25/19 08:59 11/27/19 09:00 Epoetin Zay (Epoetin Zay(ESRD on dialysis)) 10,000 unit TUE-TUE-TUE SUBQ 11/26/19 21:00 02/24/20 20:59 11/26/19 21:02 Iohexol (OMNIPAQUE-300 100ml) 100 ml ONCE PRN INJ RADIOLOGY 11/26/19 15:24 11/28/19 15:23 Iohexol (Omnipaque 350 100ml) 100 ml NOW PRN INJ Radiology Procedure 11/26/19 20:00 11/28/19 19:46 Iron Sucrose 100 mg/Sodium Chloride 60 ml @ 240 mls/hr BEDTIME IV 11/25/19 21:00 11/29/19 21:14 11/26/19 20:26 Linezolid (Zyvox) 600 mg EVERY 12 HOURS ORAL 11/26/19 12:00 12/01/19 11:59 11/27/19 09:00 Lorazepam (Ativan 2mg/ml 1ml) 1 mg Q4H PRN IV For Anxiety 11/25/19 18:45 12/02/19 10:44 Morphine Sulfate (Morphine Sulfate) 1 mg Q8H PRN IVP For Pain 11/25/19 18:30 12/02/19 18:29 Pantoprazole (Protonix) 40 mg DAILY IVP 11/28/19 09:00 12/28/19 08:59 Piperacillin Sod/ Tazobactam Sod 2.25 gm/Dextrose 55 ml @ 110 mls/hr Q8HR@0200,1000,1800 IV 11/26/19 02:00 12/01/19 09:59 11/27/19 10:55 Polyethylene Glycol (Miralax) 17 gm BEDTIME ORAL 11/27/19 21:00 12/27/19 20:59 Thiamine HCl 100 mg/Dextrose 56 ml @ 112 mls/hr Q24H IVPB 11/26/19 12:00 12/25/19 11:59 11/26/19 12:48 Assessment/Plan Assessment/Plan: Hematology Consultation OSCAR BARAHONA: Angel schroeder RFC: Dvt lower leg and ivc filter placement DOS 11/27/2019 ID This is a 69-year-old female who is [place]-speaking. She presents with chief complaint of shortness of breath and respiratory distress. Patient is a very poor historian. Her daughter called 911 because patient been weak and coughing and shortness of breath. According to her daughter, patient has a history of alcohol abuse and probably undiagnosed psychiatric disorder. She has a history of alcohol abuse. No drug use. Daughter said that patient is a hoarder and also get very anxious and paranoid. She refused to go to the doctors. She has diarrhea and vomiting about a week ago. Also been increasing cough. Was very weak. She is unable to get up on the floor. Per EMS, when they got there her oxygenation was 79% on room air. Patient says she felt better now since she is on oxygen. Unknown medical history. Now s/p hd and fem placement cathter, has a dvt lower leg and now s/p ivc filter placement, due to anemia. Allergies: No Known Allergies (Unverified , 11/24/19) COVID-19 Screening Contact w/high risk pt: No Experienced COVID-19 symptoms?: No COVID-19 Testing performed MEDICAL APPOINTMENT CLERK: No Patient History Past Medical History: none, see triage record, old chart reviewed Past Surgical History: none Pertinent Family History: none Social History: Reports: alcohol use Now: No Immunizations: other Reviewed Nursing Documentation: PMH: Agreed; PSxH: Agreed Nursing Documentation-PMH History Of Psychiatric Problem: Yes - ETOH Abuse Review of Systems Eye: Denies: eye pain, blurred vision ENT: Denies: ear pain, nose congestion, throat swelling Respiratory: Reports: cough, shortness of breath Cardiovascular: Denies: chest pain, palpitations Gastrointestinal: Denies: abdominal pain, diarrhea, nausea, vomiting Musculoskeletal: Denies: back pain, joint pain Skin: Denies: rash Neurological: Denies: headache, numbness Endocrine: Denies: increased thirst, increased urine Hematologic/Lymphatic: Denies: easy bruising All Other Systems: negative except mentioned in HPI Physical Exam: Vitals: reviewed General: NAD HEENT: nc, at Neck: supple Chest: clear breath sounds bilaterally Cardiovascular: RRR, no s3, s4 Abdomen: soft, nontender, nd Extremities: no cce, normal range of motion Neuro: alert and oriented Labs noted Imaging reviewed Assessment and Recs # Left LE DVT and Probable PE --> 11/25 SP IVC filter placement --> v/q scan: Overall findings suggesting intermediate probability for pulmonary embolism. More sensitive evaluation can be made with CT angiogram of the chest as clinically indicated. --> v. duplex: STUDY POSITIVE FOR DVT IN THE LEFT COMMON FEMORAL TO PROXIMAL SUPERFICIAL FEMORAL VEIN. LEFT COMMON FEMORAL TO PROXIMAL SUPERFICIAL FEMORAL --> unable to start anticoag given severe anemia, etoh use --> agree with ivc filter placement --> outpatient followup # Anemia of chronic disease due to underlying chronic medical issues, multifactorial v Gi bleed --> Anemia workup has been ordered, rule out gi bleed --> No evidence of hemolysis is noted, peripheral smear has been reviewed. --> Hgb goal >7. Transfuse prn. --> Epogen or iron both have been started for esrd --> Medications have been reviewed --> low threshold for gi evaluation in case has occult + --> recommend etoh cessation # Leukocytosis due to sepsis uti and cap -> abx as per id --> wbc 31-->24-->23 --> imaging as needed # Acute respiratory failure with hypoxia --> on bipap # ESRD --> per renal on hd # Sepsis with bilateral pna # CAP (community acquired pneumonia) # Hyperkalemia # Encephalopathy acute # Morbid obesity # History of EtOH abuse # Possible psychiatric disorder The timing of this note does not necessarily reflect the time of the patient was seen. Greatly appreciate consultation. Holland Miranda MD Nov 27, 2019 12:27
[2019-11-27] MEDS: Thiamine HCl 100 MG in D5W 55 ML IVPB SCH (13:31)
--- NOTE | 2019-11-27 13:31 | Diagnostic Imaging Report ---
EXAM: CT CTA Chest w Contrast CLINICAL HISTORY: Severe sepsis. Pneumonia. Hypoxia. Shortness of breath. TECHNIQUE: CT angiogram of the pulmonary vasculature performed with IV contrast. 2-D and 3-D reformat images obtained. All CT scans at this facility are performed using dose modulation techniques as appropriate to a performed exam including the following: automated exposure control with adjustment of the mA and/or kV according to patient size. RADIATION DOSE: CTDIvol: 89.3 mGy DLP: 477.2 mGy-cm Dose information generated by the CT scanner is available in PACS. COMPARISON: None FINDINGS: Studies limited due to respiratory motion artifact. There is no central filling defects or thrombus identified. The visualized peripheral subsegmental branches are also grossly unremarkable to the extent visualized. There is consolidation and infiltrate noted especially in the right lower lobe and the airspace disease does obscure some of the peripheral subsegmental branches of the right lower lobe. Some dependent infiltrates also noted in the posterior left lung base and there are patchy groundglass infiltrates in both upper lobes. The aorta is normal in caliber and there is no intimal flap or dissection. Prominent lymph nodes identified in the right lower paratracheal region as well as the precarinal and subcarinal areas. Etiology undetermined. No gross acute abnormality noted in the limited images through the upper abdomen. There is extensive anasarca and subcutaneous edema in the abdominal wall. IMPRESSION: NO CT EVIDENCE OF PULMONARY EMBOLISM TO THE EXTENT VISUALIZED. BILATERAL INFILTRATES AND RIGHT LOWER LOBE CONSOLIDATION. THE CONSOLIDATION DOES OBSCURE SOME PERIPHERAL SUBSEGMENTAL BRANCHES OF THE RIGHT LOWER LOBE AND SMALL PERIPHERAL EMBOLI IN THIS AREA CANNOT BE EXCLUDED. MEDIASTINAL ADENOPATHY. ANASARCA.
[2019-11-27 16:00] VITALS: BP 119/48
[2019-11-27] MEDS ORDERED: Varibar Nectar 240ml MC PRN (16:00)
[2019-11-27] MEDS ORDERED: Varibar Pudding 230ml MC PRN (16:00)
[2019-11-27] MEDS ORDERED: Varibar Honey 250ml MC PRN (16:00)
--- NOTE | 2019-11-27 16:32 | Diagnostic Imaging Report ---
EXAM: US Pelvic Limited CLINICAL HISTORY: Pelvic pain. COMPARISON: None TECHNIQUE: Ultrasound examination of the pelvis includes grayscale images, and color and spectral doppler analysis. FINDINGS: Transabdominal technique utilized. Patient unable to tolerate endovaginal exam. There is limited visualization of the uterus. It measures approximately 11.6 x 7.1 x 5.1 cm. Myometrium is heterogeneous. There is suggestion of a calcified fundal fibroid. Endometrial stripe is not well seen. Right ovary is not visualized. Left ovary is estimated at 3.3 x 2.9 cm. There is no free fluid. IMPRESSION: LIMITED TRANSABDOMINAL STUDY ONLY WITH RELATIVELY POOR DELINEATION OF THE REPRODUCTIVE ORGANS. HETEROGENEOUS UTERUS WITH APPARENT FIBROID CHANGE. RIGHT OVARY NOT VISUALIZED AND ENDOMETRIAL STRIPE ALSO POORLY SEEN LEFT OVARY IS ONLY MARGINALLY SEEN AND GROSSLY UNREMARKABLE.
[2019-11-27 20:00] VITALS: BP 113/57
[2019-11-27] MEDS: Dyna-Hex 2% Top Sol 2oz TOPIC SCH (20:00)
[2019-11-27] MEDS: Iron Sucrose 100 MG in NS 55 ML IV SCH (20:01)
--- NOTE | 2019-11-27 20:38 | Cardiology Progress Note ---
Assessment/Plan Assessment/Plan 1. Acute diastolic congestive heart failure, aggressive hemodialysis for decrease of preload. 2. Hyperkalemia, resolved. 3. Alcohol abuse. 4. Acute kidney injury. 5. Dyslipidemia with low HDL. 6. CAP. Subjective Subjective Sinus rhythm at rate of 72. Venturi mask, FIO2 of 40%. Objective Last 24 Hour Vital Signs Date Time Temp Pulse Resp B/P (MAP) Pulse Ox O2 Delivery O2 Flow Rate FiO2 11/27/19 20:00 97.7 72 27 113/57 (75) 99 11/27/19 20:00 Venturi Mask 8.0 11/27/19 20:00 8.0 40 11/27/19 19:07 97 Venturi Mask 8.0 40 11/27/19 16:00 97.7 71 29 119/48 (71) 98 11/27/19 16:00 Venturi Mask 8.0 11/27/19 16:00 79 11/27/19 16:00 8.0 40 11/27/19 13:52 66 20 100 Venturi Mask 8.0 40 70 20 99 11/27/19 12:00 97.7 76 30 118/55 (76) 97 11/27/19 12:00 78 11/27/19 12:00 Venturi Mask 8.0 11/27/19 12:00 8.0 40 11/27/19 08:00 97.7 74 22 113/58 (76) 96 11/27/19 08:00 Venturi Mask 8.0 11/27/19 08:00 78 11/27/19 08:00 8.0 40 11/27/19 07:30 98 Venturi Mask 8.0 40 11/27/19 04:00 97.3 72 26 116/55 (75) 97 11/27/19 04:00 8.0 40 11/27/19 04:00 Venturi Mask 8.0 11/27/19 03:41 74 11/27/19 00:00 97.9 71 26 105/55 (72) 95 11/27/19 00:00 Nasal Cannula 5.0 11/27/19 00:00 76 Intake and Output 11/26/19 11/27/19 19:00 07:00 Intake Total 971 ml 1210 ml Output Total 10 ml Balance 961 ml 1210 ml Intake Oral 270 ml IV Total 691 ml 940 ml Blood Product 280 ml Output Urine Total 10 ml 2D Echo: LVEF 65%, RVSP 58 mmHg, Grade I LVDD Laboratory Tests Test 11/27/19 04:00 White Blood Count 22.7 K/UL (4.8-10.8) *H Red Blood Count 3.62 M/UL (4.20-5.40) L Hemoglobin 8.0 G/DL (12.0-16.0) L Hematocrit 25.5 % (37.0-47.0) L Mean Corpuscular Volume 71 FL (80-99) L Mean Corpuscular Hemoglobin 22.2 PG (27.0-31.0) L Mean Corpuscular Hemoglobin Concent 31.4 G/DL (32.0-36.0) L Red Cell Distribution Width 24.1 % (11.6-14.8) H Platelet Count 151 K/UL (150-450) Mean Platelet Volume 5.7 FL (6.5-10.1) L Neutrophils (%) (Auto) % (45.0-75.0) Lymphocytes (%) (Auto) % (20.0-45.0) Monocytes (%) (Auto) % (1.0-10.0) Eosinophils (%) (Auto) % (0.0-3.0) Basophils (%) (Auto) % (0.0-2.0) Differential Total Cells Counted 100 Neutrophils % (Manual) 87 % (45-75) H Lymphocytes % (Manual) 6 % (20-45) L Monocytes % (Manual) 7 % (1-10) Eosinophils % (Manual) 0 % (0-3) Basophils % (Manual) 0 % (0-2) Band Neutrophils 0 % (0-8) Platelet Estimate Adequate Platelet Morphology Normal Anisocytosis 1+ Sodium Level 141 MMOL/L (136-145) Potassium Level 4.2 MMOL/L (3.5-5.1) Chloride Level 102 MMOL/L (98-107) Carbon Dioxide Level 30 MMOL/L (21-32) Anion Gap 9 mmol/L (5-15) Blood Urea Nitrogen 76 mg/dL (7-18) H Creatinine 7.8 MG/DL (0.55-1.30) H Estimat Glomerular Filtration Rate 5.1 mL/min (>60) Glucose Level 154 MG/DL (74-106) H Lactic Acid Level 1.80 mmol/L (0.4-2.0) Calcium Level 7.6 MG/DL (8.5-10.1) L Total Bilirubin 0.4 MG/DL (0.2-1.0) Aspartate Amino Transf (AST/SGOT) 36 U/L (15-37) Alanine Aminotransferase (ALT/SGPT) 24 U/L (12-78) Alkaline Phosphatase 136 U/L (46-116) H Ammonia 32 umol/L (11-32) Lactate Dehydrogenase 422 U/L (81-234) H Total Protein 5.5 G/DL (6.4-8.2) L Albumin 1.6 G/DL (3.4-5.0) L Globulin 3.9 g/dL Albumin/Globulin Ratio 0.4 (1.0-2.7) L Amylase Level 69 U/L (25-115) Lipase 478 U/L (73-393) H HIV (1&2) Antibody Rapid Negative (NEGATIVE) Microbiology Date/Time Source Procedure Growth Status 11/25/19 03:50 Sputum Expectorated Gram Stain - Final Resulted 11/25/19 03:50 Sputum Culture - Preliminary Staphylococcus Aureus - Mrsa Usual Respiratory Nabila Resulted 11/25/19 02:20 Nasopharynx SARS-CoV-2 RdRp Gene Assay - Final Complete 11/26/19 13:20 Indwelling Cath Urine Culture - Preliminary Resulted Objective HEENT: Atraumatic, normocephalic. ENT, pupils are equal, round, and reactive to light and accommodation. Positive pallor. NECK: Cannot assess JVP due to obesity and short neck and current use of BiPAP mask. No carotid bruit. Carotid upstrokes 2+ bilaterally. CARDIOVASCULAR: Normal S1, S2. Regular rate and rhythm. No murmurs, gallops, or rubs. PMI is at fourth intercostal space in the midclavicular line. LUNGS: Bilateral crackles, mostly in the bases. ABDOMEN: Soft, nondistended. No hepatosplenomegaly. Positive bowel sounds. EXTREMITIES: No evidence of edema, clubbing, or cyanosis. Adryan Lopez MD Nov 27, 2019 20:38
--- NOTE | 2019-11-27 21:44 | Diagnostic Imaging Report ---
EXAM: CT Head Without Intravenous Contrast CLINICAL HISTORY: Altered mental status TECHNIQUE: Axial computed tomography images of the head/brain without intravenous contrast. CTDI is 53.4 mGy and DLP is 938.7 mGy-cm. One or more of the following dose reduction techniques were used: automated exposure control, adjustment of the mA and/or kV according to patient size, use of iterative reconstruction technique. COMPARISON: No relevant prior studies available. FINDINGS: Brain: No intracranial hemorrhage or mass effect. No clear acute large vessel territory infarct. Ventricles: Unremarkable. No ventriculomegaly. Bones/joints: Unremarkable. No acute fracture. Soft tissues: Unremarkable. Sinuses: Unremarkable as visualized. No acute sinusitis. Mastoid air cells: Unremarkable as visualized. No mastoid effusion. IMPRESSION: No acute intracranial process.
[2019-11-27] MEDS: Miralax 17gm pkt ORAL SCH (21:51)
[2019-11-28] VITALS: BP 110/63
[2019-11-28] MEDS: Piperacillin/Tazobactam 2.25 GM in D5W 55 ML IV SCH ×3 (02:07→17:19)
[2019-11-28 04:00] VITALS: BP 106/57
[2019-11-28] MEDS: Aluminum Hydroxide Gel Susp 15ml ORAL SCH ×2 (04:01→09:13)
[2019-11-28 05:26] LABS: INR 1.2 (0.9-1.1)
[2019-11-28 05:29] LABS: HEMATOCRIT 25.5 % (37.0-47.0); HEMOGLOBIN 7.9 G/DL (12.0-16.0); MEAN CORPUSCULAR VOLUME 72 FL (80-99); PLATELET COUNT 124 K/UL (150-450); RED BLOOD COUNT 3.55 M/UL (4.20-5.40); RED CELL DISTRIBUTION WIDTH 24.7 % (11.6-14.8); WHITE BLOOD COUNT 20.7 K/UL (4.8-10.8)
[2019-11-28 05:40] LABS: ANION GAP 10 mmol/L (5-15); BLOOD UREA NITROGEN 54 mg/dL (7-18); CALCIUM 7.7 MG/DL (8.5-10.1); CARBON DIOXIDE 31 MMOL/L (21-32); CHLORIDE 104 MMOL/L (98-107); CREATININE 6.4 MG/DL (0.55-1.30); POTASSIUM 4.3 MMOL/L (3.5-5.1); SODIUM 145 MMOL/L (136-145)
--- NOTE | 2019-11-28 07:15 | Hematology/Onc Progress Note ---
Assessment/Plan Assessment/Plan Assessment and Recs # Left LE DVT and Probable PE s/p 11/25 IVC filter placement --> v/q scan: Overall findings suggesting intermediate probability for pulmonary embolism. More sensitive evaluation can be made with CT angiogram of the chest as clinically indicated. --> v. duplex: STUDY POSITIVE FOR DVT IN THE LEFT COMMON FEMORAL TO PROXIMAL SUPERFICIAL FEMORAL VEIN. LEFT COMMON FEMORAL TO PROXIMAL SUPERFICIAL FEMORAL --> unable to start anticoag given severe anemia, etoh use --> agree with ivc filter placement --> outpatient followup # Anemia of chronic disease due to underlying chronic medical issues, multifactorial v Gi bleed --> Anemia workup has been ordered, rule out gi bleed --> No evidence of hemolysis is noted, peripheral smear has been reviewed. --> Hgb goal >7. Transfuse prn. --> Epogen or iron both have been started for esrd --> Medications have been reviewed --> low threshold for gi evaluation in case has occult + --> recommend etoh cessation --> hgb 8.3-->8-->7.9 # Leukocytosis due to sepsis uti and cap -> abx as per id zosyn --> wbc 31-->24-->23-->16 --> imaging as needed # Acute respiratory failure with hypoxia --> on bipap # ESRD --> per renal on hd # Sepsis with bilateral pna # CAP (community acquired pneumonia) # Hyperkalemia # Encephalopathy acute # Morbid obesity # History of EtOH abuse # Possible psychiatric disorder # Dvt ppx scds The timing of this note does not necessarily reflect the time of the patient was seen. Greatly appreciate consultation. Subjective Constitutional: Denies: no symptoms, chills, fever, malaise, weakness, other Cardiovascular: Denies: no symptoms, chest pain, edema, irregular heart rate, lightheadedness, palpitations, syncope, other Respiratory: Denies: no symptoms, cough, shortness of breath, SOB with excertion, SOB at rest, sputum, wheezing, other Gastrointestinal/Abdominal: Denies: no symptoms, abdomen distended, abdominal pain, black stools, tarry stools, blood in stool, constipated, diarrhea, difficulty swallowing, nausea, poor appetite, poor fluid intake, rectal bleeding , vomiting, other Genitourinary: Denies: no symptoms, burning, discharge, frequency, flank pain, hematuria, incontinence, pain, urgency, other Neurologic/Psychiatric: Denies: no symptoms, anxiety, depressed, emotional problems, headache, numbness, paresthesia, pre-existing deficit, seizure, tingling, tremors, weakness, other Endocrine: Denies: no symptoms, excessive sweating, flushing, intolerance to cold, intolerance to heat, increased hunger, increased thirst, increased urine, unexplained weight gain, unexplained weight loss, other Hematologic/Lymphatic: Denies: no symptoms, anemia, easy bleeding, easy bruising, adenopathy, other Allergies: Coded Allergies: No Known Allergies (Unverified , 11/24/19) Subjective 11/27 more arousable on venturi mask, started on iv iron, plt lower Objective Objective Current Medications Medications (Trade) Dose Ordered Sig/Brina Route PRN Reason Start Time Stop Time Status Last Admin Dose Admin Acetaminophen (Tylenol) 650 mg Q8H PRN NG Mild Pain (Pain Scale 1-3) 11/27/19 08:30 12/27/19 08:29 Acetaminophen/ Hydrocodone Bitart ([place] 10/325) 1 tab Q8H PRN ORAL Severe Pain (Pain Scale 7-10) 11/27/19 08:30 12/04/19 08:29 Acetaminophen/ Hydrocodone Bitart ([place] 5/325) 1 tab Q8H PRN ORAL Moderate Pain (Pain Scale 4-6) 11/27/19 08:30 12/04/19 08:29 Albuterol/ Ipratropium (Albuterol/ Ipratropium) 3 ml Q4H PRN HHN Shortness of Breath 11/25/19 18:30 11/29/19 18:29 Albuterol/ Ipratropium (Albuterol/ Ipratropium) 3 ml Q4H PRN HHN sob 11/25/19 19:00 11/30/19 18:59 11/27/19 13:52 Aluminum Hydroxide (Amphojel) 1,920 mg Q6H ORAL 11/25/19 22:00 12/25/19 09:59 11/28/19 04:01 Barium Sulfate (Varibar Honey) 250 ml NOW PRN Radiology Procedure 11/27/19 16:00 11/30/19 15:57 Barium Sulfate (Varibar [place]) 230 ml NOW PRN Radiology Procedure 11/27/19 16:00 11/30/19 15:57 Barium Sulfate (Varibar Pudding) 230 ml NOW PRN Radiology Procedure 11/27/19 16:00 11/30/19 15:57 Chlorhexidine Gluconate (Shonna-Hex 2%) 1 applic DAILY@2000 TOPIC 11/26/19 20:00 02/24/20 19:59 11/27/19 20:00 Docusate Sodium (Colace) 100 mg THREE TIMES A DAY ORAL 11/26/19 09:00 12/25/19 08:59 11/27/19 09:00 Epoetin Zay (Epoetin Zay(ESRD on dialysis)) 10,000 unit TUE-TUE-TUE SUBQ 11/26/19 21:00 02/24/20 20:59 11/26/19 21:02 Iohexol (OMNIPAQUE-300 100ml) 100 ml ONCE PRN INJ RADIOLOGY 11/26/19 15:24 11/28/19 15:23 Iohexol (Omnipaque 350 100ml) 100 ml NOW PRN INJ Radiology Procedure 11/26/19 20:00 11/28/19 19:46 Iron Sucrose 100 mg/Sodium Chloride 60 ml @ 240 mls/hr BEDTIME IV 11/25/19 21:00 11/29/19 21:14 11/27/19 20:01 Linezolid (Zyvox) 600 mg EVERY 12 HOURS ORAL 11/26/19 12:00 12/01/19 11:59 11/27/19 20:02 Lorazepam (Ativan 2mg/ml 1ml) 1 mg Q4H PRN IV For Anxiety 11/25/19 18:45 12/02/19 10:44 Morphine Sulfate (Morphine Sulfate) 1 mg Q8H PRN IVP For Pain 11/25/19 18:30 12/02/19 18:29 Pantoprazole (Protonix) 40 mg DAILY IVP 11/28/19 09:00 12/28/19 08:59 Piperacillin Sod/ Tazobactam Sod 2.25 gm/Dextrose 55 ml @ 110 mls/hr Q8HR@0200,1000,1800 IV 11/26/19 02:00 12/01/19 09:59 11/28/19 02:07 Polyethylene Glycol (Miralax) 17 gm BEDTIME ORAL 11/27/19 21:00 12/27/19 20:59 11/27/19 21:51 Thiamine HCl 100 mg/Dextrose 56 ml @ 112 mls/hr Q24H IVPB 11/26/19 12:00 12/25/19 11:59 11/27/19 13:31 Last 24 Hour Vital Signs Date Time Temp Pulse Resp B/P (MAP) Pulse Ox O2 Delivery O2 Flow Rate FiO2 11/28/19 04:00 Venturi Mask 8.0 11/28/19 04:00 97.7 71 21 106/57 (73) 98 11/28/19 04:00 71 11/28/19 04:00 8.0 40 11/28/19 00:00 97.7 75 20 110/63 (79) 95 11/28/19 00:00 70 11/28/19 00:00 Venturi Mask 8.0 11/27/19 20:00 97.7 72 27 113/57 (75) 99 11/27/19 20:00 Venturi Mask 8.0 11/27/19 20:00 72 11/27/19 20:00 8.0 40 11/27/19 19:07 97 Venturi Mask 8.0 40 11/27/19 16:00 97.7 71 29 119/48 (71) 98 11/27/19 16:00 Venturi Mask 8.0 11/27/19 16:00 79 11/27/19 16:00 8.0 40 11/27/19 13:52 66 20 100 Venturi Mask 8.0 40 70 20 99 11/27/19 12:00 97.7 76 30 118/55 (76) 97 11/27/19 12:00 78 11/27/19 12:00 Venturi Mask 8.0 11/27/19 12:00 8.0 40 11/27/19 08:00 97.7 74 22 113/58 (76) 96 11/27/19 08:00 Venturi Mask 8.0 11/27/19 08:00 78 11/27/19 08:00 8.0 40 11/27/19 07:30 98 Venturi Mask 8.0 40 11/27/19 04:00 97.3 72 26 116/55 (75) 97 11/27/19 04:00 8.0 40 11/27/19 04:00 Venturi Mask 8.0 11/27/19 03:41 74 11/27/19 00:00 97.9 71 26 105/55 (72) 95 11/27/19 00:00 Nasal Cannula 5.0 11/27/19 00:00 76 11/26/19 20:00 Nasal Cannula 5.0 11/26/19 20:00 97.0 79 22 108/39 (62) 95 11/26/19 20:00 5.0 11/26/19 19:03 76 11/26/19 16:10 68 25 134/66 (88) 100 11/26/19 16:05 69 30 134/66 (88) 100 11/26/19 16:00 Nasal Cannula 5.0 11/26/19 16:00 65 26 122/73 (89) 100 11/26/19 16:00 5.0 11/26/19 16:00 82 11/26/19 15:27 69 28 15.0 11/26/19 12:00 97.6 82 22 118/62 (80) 98 11/26/19 12:00 Nasal Cannula 5.0 11/26/19 12:00 100 11/26/19 12:00 5.0 11/26/19 08:00 97.7 88 22 121/68 (85) 96 11/26/19 08:00 69 11/26/19 08:00 Nasal Cannula 2.0 11/26/19 08:00 2.0 11/26/19 07:50 98 Nasal Cannula 2.0 28 Intake and Output 11/27/19 11/28/19 19:00 07:00 Intake Total 632.25 ml 530 ml Output Total 10 ml Balance 622.25 ml 530 ml Intake Oral 240 ml 360 ml IV Total 392.25 ml 170 ml Output Urine Total 10 ml Hemodialysis UF 0 ml # Voids 2 # Bowel Movements 1 2 Labs Test 11/26/19 03:38 11/27/19 04:00 11/28/19 02:00 11/28/19 03:55 White Blood Count 25.9 K/UL (4.8-10.8) 22.7 K/UL (4.8-10.8) 20.7 K/UL (4.8-10.8) Red Blood Count 3.47 M/UL (4.20-5.40) 3.62 M/UL (4.20-5.40) 3.55 M/UL (4.20-5.40) Hemoglobin 7.3 G/DL (12.0-16.0) 8.0 G/DL (12.0-16.0) 7.9 G/DL (12.0-16.0) Hematocrit 23.4 % (37.0-47.0) 25.5 % (37.0-47.0) 25.5 % (37.0-47.0) Mean Corpuscular Volume 68 FL (80-99) 71 FL (80-99) 72 FL (80-99) Mean Corpuscular Hemoglobin 21.0 PG (27.0-31.0) 22.2 PG (27.0-31.0) 22.1 PG (27.0-31.0) Mean Corpuscular Hemoglobin Concent 31.1 G/DL (32.0-36.0) 31.4 G/DL (32.0-36.0) 30.8 G/DL (32.0-36.0) Red Cell Distribution Width 22.6 % (11.6-14.8) 24.1 % (11.6-14.8) 24.7 % (11.6-14.8) Platelet Count 178 K/UL (150-450) 151 K/UL (150-450) 124 K/UL (150-450) Mean Platelet Volume 5.3 FL (6.5-10.1) 5.7 FL (6.5-10.1) 6.1 FL (6.5-10.1) Neutrophils (%) (Auto) % (45.0-75.0) % (45.0-75.0) % (45.0-75.0) Lymphocytes (%) (Auto) % (20.0-45.0) % (20.0-45.0) % (20.0-45.0) Monocytes (%) (Auto) % (1.0-10.0) % (1.0-10.0) % (1.0-10.0) Eosinophils (%) (Auto) % (0.0-3.0) % (0.0-3.0) % (0.0-3.0) Basophils (%) (Auto) % (0.0-2.0) % (0.0-2.0) % (0.0-2.0) Differential Total Cells Counted 100 100 Neutrophils % (Manual) 90 % (45-75) 87 % (45-75) Lymphocytes % (Manual) 3 % (20-45) 6 % (20-45) Monocytes % (Manual) 7 % (1-10) 7 % (1-10) Eosinophils % (Manual) 0 % (0-3) 0 % (0-3) Basophils % (Manual) 0 % (0-2) 0 % (0-2) Band Neutrophils 0 % (0-8) 0 % (0-8) Platelet Estimate Adequate Adequate Platelet Morphology Normal Normal Polychromasia 1+ Hypochromasia 1+ Anisocytosis 3+ 1+ Microcytosis 2+ Sodium Level 144 MMOL/L (136-145) 141 MMOL/L (136-145) 145 MMOL/L (136-145) Potassium Level 4.1 MMOL/L (3.5-5.1) 4.2 MMOL/L (3.5-5.1) 4.3 MMOL/L (3.5-5.1) Chloride Level 104 MMOL/L (98-107) 102 MMOL/L (98-107) 104 MMOL/L (98-107) Carbon Dioxide Level 32 MMOL/L (21-32) 30 MMOL/L (21-32) 31 MMOL/L (21-32) Anion Gap 8 mmol/L (5-15) 9 mmol/L (5-15) 10 mmol/L (5-15) Blood Urea Nitrogen 66 mg/dL (7-18) 76 mg/dL (7-18) 54 mg/dL (7-18) Creatinine 7.3 MG/DL (0.55-1.30) 7.8 MG/DL (0.55-1.30) 6.4 MG/DL (0.55-1.30) Estimat Glomerular Filtration Rate 5.6 mL/min (>60) 5.1 mL/min (>60) 6.5 mL/min (>60) Glucose Level 173 MG/DL (74-106) 154 MG/DL (74-106) 126 MG/DL (74-106) Uric Acid 7.9 MG/DL (2.6-7.2) Calcium Level 7.7 MG/DL (8.5-10.1) 7.6 MG/DL (8.5-10.1) 7.7 MG/DL (8.5-10.1) Phosphorus Level 6.8 MG/DL (2.5-4.9) Magnesium Level 2.5 MG/DL (1.8-2.4) Total Bilirubin 0.4 MG/DL (0.2-1.0) 0.4 MG/DL (0.2-1.0) Gamma Glutamyl Transpeptidase 25 U/L (5-85) Aspartate Amino Transf (AST/SGOT) 45 U/L (15-37) 36 U/L (15-37) Alanine Aminotransferase (ALT/SGPT) 30 U/L (12-78) 24 U/L (12-78) Alkaline Phosphatase 137 U/L (46-116) 136 U/L (46-116) Ammonia 33 umol/L (11-32) 32 umol/L (11-32) C-Reactive Protein, Quantitative 29.6 mg/dL (0.00-0.90) Pro-B-Type Natriuretic Peptide 2166 pg/mL (0-125) Total Protein 5.7 G/DL (6.4-8.2) 5.5 G/DL (6.4-8.2) Albumin 1.7 G/DL (3.4-5.0) 1.6 G/DL (3.4-5.0) Globulin 4.0 g/dL 3.9 g/dL Albumin/Globulin Ratio 0.4 (1.0-2.7) 0.4 (1.0-2.7) Amylase Level 105 U/L (25-115) 69 U/L (25-115) Lipase 539 U/L (73-393) 478 U/L (73-393) 246 U/L (73-393) Lactic Acid Level 1.80 mmol/L (0.4-2.0) Lactate Dehydrogenase 422 U/L (81-234) HIV (1&2) Antibody Rapid Negative (NEGATIVE) Prothrombin Time 13.0 SEC (9.30-11.50) Prothromb Time International Ratio 1.2 (0.9-1.1) Height (Feet): 5 Height (Inches): 4.00 Weight (Pounds): 245 Objective Vitals: reviewed General: NAD HEENT: nc, at Neck: supple Chest: clear breath sounds bilaterally Cardiovascular: RRR, no s3, s4 Abdomen: soft, nontender, nd Extremities: no cce, normal range of motion Neuro: alert and oriented Holland Miranda MD Nov 28, 2019 07:15
[2019-11-28 08:00] VITALS: BP 107/54
[2019-11-28 08:32] LABS: ALANINE AMINOTRANSFERASE 20 U/L (12-78); ALBUMIN 1.5 G/DL (3.4-5.0); ALKALINE PHOSPHATASE 119 U/L (46-116); ASPARTATE AMINO TRANSFERASE 35 U/L (15-37); BILIRUBIN,DIRECT 0.1 MG/DL (0.0-0.3); BILIRUBIN,TOTAL 0.4 MG/DL (0.2-1.0); PHOSPHORUS 6.2 MG/DL (2.5-4.9)
--- NOTE | 2019-11-28 08:44 | General Progress Note ---
Assessment/Plan Assessment/Plan: S, O: pt is awake , poor historian, seen and examined in step down unit. in mild sob. on BIPAP PHYSICAL EXAMINATION:HEAD AND NECK: Atraumatic and normocephalic. CHEST: Diffuse bronchial breathing sounds.HEART: S1 and S2. Regular rate and rhythm. ABDOMEN: Soft. No organomegaly. Protuberant. No tenderness. MUSCULOSKELETAL: Right inguinal HD- access noted, No gross lateralized motor deficit. It is limited examination as the patient is not cooperative. b/l le edema and tenderness NEUROLOGIC: The patient is delirious. DIAGNOSTIC AND LABORATORY DATA: Imaging, Chest -CT dated November 26 Labs, dated November 27 reviwed ASSESSMENT: 1. Severe sepsis. 2. PNA- Bilateral 3. Hypoxemic respiratory failure. 3. Hyperkalemia. 4. End-stage renal disease. 5. CHF, likely diagnosis. 6. Abnormal blood sugar. 7. Acute on chronic Microcytic anemia. 8. GI and DVT prophylaxis. 9. LE DVT- Bilateral PLAN OF CARE: contra indication for anticoagulation . D/W Hemonch regarding IVC notes form ID, Nephrology reviewed S/P IVC filter placement. Given the importance of diagnosis of PE in the risk stratification decision for halfway ATC, will proceed with Chest CT-Angio No additional ATC at this time, pending stool occult test Subjective Allergies: Coded Allergies: No Known Allergies (Unverified , 11/24/19) Objective Last 24 Hour Vital Signs Date Time Temp Pulse Resp B/P (MAP) Pulse Ox O2 Delivery O2 Flow Rate FiO2 11/28/19 04:00 Venturi Mask 8.0 11/28/19 04:00 97.7 71 21 106/57 (73) 98 11/28/19 04:00 71 11/28/19 04:00 8.0 40 11/28/19 00:00 97.7 75 20 110/63 (79) 95 11/28/19 00:00 70 11/28/19 00:00 Venturi Mask 8.0 11/27/19 20:00 97.7 72 27 113/57 (75) 99 11/27/19 20:00 Venturi Mask 8.0 11/27/19 20:00 72 11/27/19 20:00 8.0 40 11/27/19 19:07 97 Venturi Mask 8.0 40 11/27/19 16:00 97.7 71 29 119/48 (71) 98 11/27/19 16:00 Venturi Mask 8.0 11/27/19 16:00 79 11/27/19 16:00 8.0 40 11/27/19 13:52 66 20 100 Venturi Mask 8.0 40 70 20 99 11/27/19 12:00 97.7 76 30 118/55 (76) 97 11/27/19 12:00 78 11/27/19 12:00 Venturi Mask 8.0 11/27/19 12:00 8.0 40 Intake and Output 11/27/19 11/28/19 19:00 07:00 Intake Total 632.25 ml 530 ml Output Total 10 ml Balance 622.25 ml 530 ml Intake Oral 240 ml 360 ml IV Total 392.25 ml 170 ml Output Urine Total 10 ml Hemodialysis UF 0 ml # Voids 2 # Bowel Movements 1 2 Laboratory Tests 11/28/19 02:00: Stool Occult Blood [Pending] 11/28/19 03:55: White Blood Count 20.7H, Red Blood Count 3.55L, Hemoglobin 7.9L, Hematocrit 25.5L, Mean Corpuscular Volume 72L, Mean Corpuscular Hemoglobin 22.1L, Mean Corpuscular Hemoglobin Concent 30.8L, Red Cell Distribution Width 24.7H, Platelet Count 124L, Mean Platelet Volume 6.1L, Neutrophils (%) (Auto) , Lymphocytes (%) (Auto) , Monocytes (%) (Auto) , Eosinophils (%) (Auto) , Basophils (%) (Auto) , Differential Total Cells Counted 100, Neutrophils % ( Manual) 86H, Lymphocytes % (Manual) 7L, Monocytes % (Manual) 7, Eosinophils % ( Manual) 0, Basophils % (Manual) 0, Band Neutrophils 0, Platelet Estimate DecreasedL, Platelet Morphology Normal, Hypochromasia 3+, Anisocytosis 4+, Microcytosis 2+, Prothrombin Time 13.0H, Prothromb Time International Ratio 1.2H , Sodium Level 145, Potassium Level 4.3, Chloride Level 104, Carbon Dioxide Level 31, Anion Gap 10, Blood Urea Nitrogen 54H, Creatinine 6.4H, Estimat Glomerular Filtration Rate 6.5, Glucose Level 126H, Calcium Level 7.7L, Phosphorus Level 6.2H, Total Bilirubin 0.4, Direct Bilirubin 0.1, Aspartate Amino Transf (AST/SGOT) 35, Alanine Aminotransferase (ALT/SGPT) 20, Alkaline Phosphatase 119H, Total Protein 5.3L, Albumin 1.5L, Lipase 246 Height (Feet): 5 Height (Inches): 4.00 Weight (Pounds): 245 Rebecca Schroeder MD Nov 28, 2019 08:44
[2019-11-28] MEDS ORDERED: Pantoprazole Inj IVP SCH (09:00)
[2019-11-28] MEDS: Docusate 100mg cap ORAL SCH ×3 (09:13→17:18)
--- NOTE | 2019-11-28 09:25 | General Progress Note ---
Assessment/Plan Assessment/Plan: 1. Acute renal failure. 2. Leukocytosis. 3. History of alcohol abuse. 4. Profound microcytic anemia. 5. Prior history of possible psychiatric disorder. 6. Elevated lipase. 7. Mild transaminitis. 8. Pelvic lymphadenopathy. 9. obesity 10. DVT s/p IVC filter placement 11. PNA fu labs on oral diet stable H&H had BM>>> fu stool ob HD per nephrology abx Subjective ROS Limited/Unobtainable: No Allergies: Coded Allergies: No Known Allergies (Unverified , 11/24/19) Subjective more alert Objective Last 24 Hour Vital Signs Date Time Temp Pulse Resp B/P (MAP) Pulse Ox O2 Delivery O2 Flow Rate FiO2 11/28/19 07:00 98 Venturi Mask 8.0 40 11/28/19 04:00 Venturi Mask 8.0 11/28/19 04:00 97.7 71 21 106/57 (73) 98 11/28/19 04:00 71 11/28/19 04:00 8.0 40 11/28/19 00:00 97.7 75 20 110/63 (79) 95 11/28/19 00:00 70 11/28/19 00:00 Venturi Mask 8.0 11/27/19 20:00 97.7 72 27 113/57 (75) 99 11/27/19 20:00 Venturi Mask 8.0 11/27/19 20:00 72 11/27/19 20:00 8.0 40 11/27/19 19:07 97 Venturi Mask 8.0 40 11/27/19 16:00 97.7 71 29 119/48 (71) 98 11/27/19 16:00 Venturi Mask 8.0 11/27/19 16:00 79 11/27/19 16:00 8.0 40 11/27/19 13:52 66 20 100 Venturi Mask 8.0 40 70 20 99 11/27/19 12:00 97.7 76 30 118/55 (76) 97 11/27/19 12:00 78 11/27/19 12:00 Venturi Mask 8.0 11/27/19 12:00 8.0 40 Intake and Output 11/27/19 11/28/19 19:00 07:00 Intake Total 632.25 ml 530 ml Output Total 10 ml Balance 622.25 ml 530 ml Intake Oral 240 ml 360 ml IV Total 392.25 ml 170 ml Output Urine Total 10 ml Hemodialysis UF 0 ml # Voids 2 # Bowel Movements 1 2 Laboratory Tests 11/28/19 02:00: Stool Occult Blood [Pending] 11/28/19 03:55: White Blood Count 20.7H, Red Blood Count 3.55L, Hemoglobin 7.9L, Hematocrit 25.5L, Mean Corpuscular Volume 72L, Mean Corpuscular Hemoglobin 22.1L, Mean Corpuscular Hemoglobin Concent 30.8L, Red Cell Distribution Width 24.7H, Platelet Count 124L, Mean Platelet Volume 6.1L, Neutrophils (%) (Auto) , Lymphocytes (%) (Auto) , Monocytes (%) (Auto) , Eosinophils (%) (Auto) , Basophils (%) (Auto) , Differential Total Cells Counted 100, Neutrophils % ( Manual) 86H, Lymphocytes % (Manual) 7L, Monocytes % (Manual) 7, Eosinophils % ( Manual) 0, Basophils % (Manual) 0, Band Neutrophils 0, Platelet Estimate DecreasedL, Platelet Morphology Normal, Hypochromasia 3+, Anisocytosis 4+, Microcytosis 2+, Prothrombin Time 13.0H, Prothromb Time International Ratio 1.2H , Sodium Level 145, Potassium Level 4.3, Chloride Level 104, Carbon Dioxide Level 31, Anion Gap 10, Blood Urea Nitrogen 54H, Creatinine 6.4H, Estimat Glomerular Filtration Rate 6.5, Glucose Level 126H, Calcium Level 7.7L, Phosphorus Level 6.2H, Total Bilirubin 0.4, Direct Bilirubin 0.1, Aspartate Amino Transf (AST/SGOT) 35, Alanine Aminotransferase (ALT/SGPT) 20, Alkaline Phosphatase 119H, Total Protein 5.3L, Albumin 1.5L, Lipase 246 Height (Feet): 5 Height (Inches): 4.00 Weight (Pounds): 245 General Appearance: alert EENT: normal ENT inspection Neck: supple Cardiovascular: normal rate Respiratory/Chest: decreased breath sounds Abdomen: normal bowel sounds, non tender, soft Extremities: swelling Ministerio Davis MD Nov 28, 2019 09:25
--- NOTE | 2019-11-28 10:42 | Pulmonology Progress Note ---
Carlita Brewster PILLOWCASE FOLDER 11/28/19 1042: Subjective ROS Limited/Unobtainable: No Allergies: Coded Allergies: No Known Allergies (Unverified , 11/24/19) Subjective on 35% VM, interm SOB, no CP s/p IVC filter 11/25 VQ scan -> intermediate probability for pulmonary embolism. afebrile, still persistent leucocytosis CTA chest no PE pt reports feeling better, denies CP, SOB, more awake and alert Objective Last 24 Hour Vital Signs Date Time Temp Pulse Resp B/P (MAP) Pulse Ox O2 Delivery O2 Flow Rate FiO2 11/28/19 08:00 8.0 35 11/28/19 08:00 71 11/28/19 08:00 97.4 70 19 107/54 (71) 99 11/28/19 08:00 Venturi Mask 8.0 11/28/19 07:00 98 Venturi Mask 8.0 40 11/28/19 04:00 Venturi Mask 8.0 11/28/19 04:00 97.7 71 21 106/57 (73) 98 11/28/19 04:00 71 11/28/19 04:00 8.0 40 11/28/19 00:00 97.7 75 20 110/63 (79) 95 11/28/19 00:00 70 11/28/19 00:00 Venturi Mask 8.0 11/27/19 20:00 97.7 72 27 113/57 (75) 99 11/27/19 20:00 Venturi Mask 8.0 11/27/19 20:00 72 11/27/19 20:00 8.0 40 11/27/19 19:07 97 Venturi Mask 8.0 40 11/27/19 16:00 97.7 71 29 119/48 (71) 98 11/27/19 16:00 Venturi Mask 8.0 11/27/19 16:00 79 11/27/19 16:00 8.0 40 11/27/19 13:52 66 20 100 Venturi Mask 8.0 40 70 20 99 11/27/19 12:00 97.7 76 30 118/55 (76) 97 11/27/19 12:00 78 11/27/19 12:00 Venturi Mask 8.0 11/27/19 12:00 8.0 40 Intake and Output 11/27/19 11/28/19 19:00 07:00 Intake Total 632.25 ml 530 ml Output Total 10 ml Balance 622.25 ml 530 ml Intake Oral 240 ml 360 ml IV Total 392.25 ml 170 ml Output Urine Total 10 ml Hemodialysis UF 0 ml # Voids 2 # Bowel Movements 1 2 Objective General Appearance: Micronesian speaking, in NAD, calm, obese female Lines, tubes and drains: peripheral, also CL via R femoral ->HD catheter HEENT: normocephalic, atraumatic, anicteric, mucous membranes moist Neck: non-tender, supple Respiratory/Chest: no accessory muscle use, few crackles at bases Cardiovascular/Chest: normal peripheral pulses, normal rate, regular rhythm Abdomen: normal bowel sounds, soft - obese, non tender Extremities: normal range of motion, non-tender, no calf tenderness, +1 edema BLE Neurologic: no motor/sensory deficits, alert, responsive but somewhat confused Musculoskeletal: normal muscle bulk Microbiology Date/Time Source Procedure Growth Status 11/26/19 13:20 Indwelling Cath Urine Culture - Preliminary NO GROWTH AFTER 24 HOURS Resulted Laboratory Tests 11/28/19 02:00: Stool Occult Blood [Pending] 11/28/19 03:55: White Blood Count 20.7H, Red Blood Count 3.55L, Hemoglobin 7.9L, Hematocrit 25.5L, Mean Corpuscular Volume 72L, Mean Corpuscular Hemoglobin 22.1L, Mean Corpuscular Hemoglobin Concent 30.8L, Red Cell Distribution Width 24.7H, Platelet Count 124L, Mean Platelet Volume 6.1L, Neutrophils (%) (Auto) , Lymphocytes (%) (Auto) , Monocytes (%) (Auto) , Eosinophils (%) (Auto) , Basophils (%) (Auto) , Differential Total Cells Counted 100, Neutrophils % ( Manual) 86H, Lymphocytes % (Manual) 7L, Monocytes % (Manual) 7, Eosinophils % ( Manual) 0, Basophils % (Manual) 0, Band Neutrophils 0, Platelet Estimate DecreasedL, Platelet Morphology Normal, Hypochromasia 3+, Anisocytosis 4+, Microcytosis 2+, Prothrombin Time 13.0H, Prothromb Time International Ratio 1.2H , Sodium Level 145, Potassium Level 4.3, Chloride Level 104, Carbon Dioxide Level 31, Anion Gap 10, Blood Urea Nitrogen 54H, Creatinine 6.4H, Estimat Glomerular Filtration Rate 6.5, Glucose Level 126H, Calcium Level 7.7L, Phosphorus Level 6.2H, Total Bilirubin 0.4, Direct Bilirubin 0.1, Aspartate Amino Transf (AST/SGOT) 35, Alanine Aminotransferase (ALT/SGPT) 20, Alkaline Phosphatase 119H, Total Protein 5.3L, Albumin 1.5L, Lipase 246 Current Medications Medications (Trade) Dose Ordered Sig/Brina Route PRN Reason Start Time Stop Time Status Last Admin Dose Admin Acetaminophen (Tylenol) 650 mg Q8H PRN NG Mild Pain (Pain Scale 1-3) 11/27/19 08:30 12/27/19 08:29 Acetaminophen/ Hydrocodone Bitart ([place] 10/325) 1 tab Q8H PRN ORAL Severe Pain (Pain Scale 7-10) 11/27/19 08:30 12/04/19 08:29 Acetaminophen/ Hydrocodone Bitart ([place] 5/325) 1 tab Q8H PRN ORAL Moderate Pain (Pain Scale 4-6) 11/27/19 08:30 12/04/19 08:29 Albuterol/ Ipratropium (Albuterol/ Ipratropium) 3 ml Q4H PRN HHN Shortness of Breath 11/25/19 18:30 11/29/19 18:29 Albuterol/ Ipratropium (Albuterol/ Ipratropium) 3 ml Q4H PRN HHN sob 11/25/19 19:00 11/30/19 18:59 11/27/19 13:52 Aluminum Hydroxide (Amphojel) 1,920 mg Q6H ORAL 11/25/19 22:00 12/25/19 09:59 11/28/19 09:13 Barium Sulfate (Varibar Honey) 250 ml NOW PRN Radiology Procedure 11/27/19 16:00 11/30/19 15:57 Barium Sulfate (Varibar [place]) 230 ml NOW PRN Radiology Procedure 11/27/19 16:00 11/30/19 15:57 Barium Sulfate (Varibar Pudding) 230 ml NOW PRN Radiology Procedure 11/27/19 16:00 11/30/19 15:57 Chlorhexidine Gluconate ([place]-Hex 2%) 1 applic DAILY@1999 TOPIC 11/26/19 20:00 02/24/20 19:59 11/27/19 20:00 Docusate Sodium (Colace) 100 mg THREE TIMES A DAY ORAL 11/26/19 09:00 12/25/19 08:59 11/28/19 09:13 Epoetin Zay (Epoetin Zay(ESRD on dialysis)) 10,000 unit TUE-TUE-TUE SUBQ 11/26/19 21:00 02/24/20 20:59 11/26/19 21:02 Iohexol (OMNIPAQUE-300 100ml) 100 ml ONCE PRN INJ RADIOLOGY 11/26/19 15:24 11/28/19 15:23 Iohexol (Omnipaque 350 100ml) 100 ml NOW PRN INJ Radiology Procedure 11/26/19 20:00 11/28/19 19:46 Iron Sucrose 100 mg/Sodium Chloride 60 ml @ 240 mls/hr BEDTIME IV 11/25/19 21:00 11/29/19 21:14 11/27/19 20:01 Linezolid (Zyvox) 600 mg EVERY 12 HOURS ORAL 11/26/19 12:00 12/01/19 11:59 11/28/19 09:13 Lorazepam (Ativan 2mg/ml 1ml) 1 mg Q4H PRN IV For Anxiety 11/25/19 18:45 12/02/19 10:44 Morphine Sulfate (Morphine Sulfate) 1 mg Q8H PRN IVP For Pain 11/25/19 18:30 12/02/19 18:29 Pantoprazole (Protonix) 40 mg DAILY IVP 11/28/19 09:00 12/28/19 08:59 11/28/19 09:13 Piperacillin Sod/ Tazobactam Sod 2.25 gm/Dextrose 55 ml @ 110 mls/hr Q8HR@0200,1000,1800 IV 11/26/19 02:00 12/01/19 09:59 11/28/19 09:14 Polyethylene Glycol (Miralax) 17 gm BEDTIME ORAL 11/27/19 21:00 12/27/19 20:59 11/27/19 21:51 Thiamine HCl 100 mg/Dextrose 56 ml @ 112 mls/hr Q24H IVPB 11/26/19 12:00 12/25/19 11:59 11/27/19 13:31 Assessment/Plan Assessment/Plan ASSESSMENT Sepsis Acute hypoxemic respiratory failure - Acute toxic metabolic encephalopathy ( multifactorial due to ARF, sepsis) Acute renal failure , requiring start of HD MRSA PNA Acute DVT LLE common femoral to proximal superficial veins , r/o PE Possible UTI Hyperkalemia Severe pulmonary HTN Anemia Elevated lipase, possible pancreatitis Pelvic LAD Anasarca History of EtOH abuse Possible psychiatric disorder PLAN OF CARE LEOBARDO supplemental O2 titrate to keep sat above 92%, resp status improved after HD, now on 35 %VM fup with CXR pulm toilet SCX + MRSA hx of recent resp illness empiric abx per ID recs-> Zosyn , Zyvox persistent leukocytosis, no fevers CTA chest now with evidence of PNA initial SOB and resp distress wrere most likely were to fluid overload 2 to acute renal failure, and now acute DVT , r/o PE Venous Duplex BLE + acute DVT LEFT COMMON FEMORAL TO PROXIMAL SUPERFICIAL FEMORAL VEINs. unable to start a/coagulation given Hgb 7.3 stat VQ scan 11/25 with intermediate probability for pulmonary embolism. s/p IVC filter 11/25 CTA chest -> no PE + BL infiltrates and RLL consolidation +mediastinal adenopathy s/p 2 u PRBC monitor HH with goal to keep Hg above 7,s/p 2 u PRBC 11/23, on EPO and IV iron anemia w/up stool OB pending rapid COVID 19 11/23 x 2 - NGT rapid COVID 19 11/24 NGT BCX 11/23 NGTD ? UTI UCX NGT IVF further management of ARF and hyper K as per die cast patternmaker - bicarb stabilized s/p HD via R fem temp HD catheter, placed by surgeon creat trending down monitor volumes ECHO with pEF 65% and RVSP of 58 c/w severe pulm HTN cardiac monitoring-SR lipase with trend up, LFT slightly down; monitor hep panel pending HIV nonreactive abd US, given enlarged lymph nodes-> fatty liver with a small septated cyst. Gallstones. The spleen, left kidney, CBD, pancreas ,aorta and cava not well defined. lipase and AST trending down thank you for consult Reece Peters MD 11/28/19 4531: Subjective Allergies: Coded Allergies: No Known Allergies (Unverified , 11/24/19) Assessment/Plan Assessment/Plan Patient seen and examined with PILLOWCASE FOLDER. Agree with above A&P as it reflects our joint deliberations. Carlita Brewster NP Nov 28, 2019 10:42 Reece Peters MD Nov 28, 2019 21:38
[2019-11-28 12:00] VITALS: BP 120/62
[2019-11-28] MEDS: Thiamine HCl 100 MG in D5W 55 ML IVPB SCH (12:22)
--- NOTE | 2019-11-28 13:48 | Surgery Progress Note ---
Surgery Progress Note Subjective Procedure Performed right femoral temporary Hemodialysis catheter insertion Additional Comments no acute events comfortable stable labs noted Objective Last 24 Hour Vital Signs Date Time Temp Pulse Resp B/P (MAP) Pulse Ox O2 Delivery O2 Flow Rate FiO2 11/28/19 12:00 97.2 76 24 120/62 (81) 94 11/28/19 12:00 Nasal Cannula 4.0 11/28/19 12:00 4.0 11/28/19 12:00 77 11/28/19 08:00 8.0 35 11/28/19 08:00 71 11/28/19 08:00 97.4 70 19 107/54 (71) 99 11/28/19 08:00 Venturi Mask 8.0 11/28/19 07:00 98 Venturi Mask 8.0 40 11/28/19 04:00 Venturi Mask 8.0 11/28/19 04:00 97.7 71 21 106/57 (73) 98 11/28/19 04:00 71 11/28/19 04:00 8.0 40 11/28/19 00:00 97.7 75 20 110/63 (79) 95 11/28/19 00:00 70 11/28/19 00:00 Venturi Mask 8.0 11/27/19 20:00 97.7 72 27 113/57 (75) 99 11/27/19 20:00 Venturi Mask 8.0 11/27/19 20:00 72 11/27/19 20:00 8.0 40 11/27/19 19:07 97 Venturi Mask 8.0 40 11/27/19 16:00 97.7 71 29 119/48 (71) 98 11/27/19 16:00 Venturi Mask 8.0 11/27/19 16:00 79 11/27/19 16:00 8.0 40 11/27/19 13:52 66 20 100 Venturi Mask 8.0 40 70 20 99 I&O Intake and Output 11/27/19 11/28/19 19:00 07:00 Intake Total 632.25 ml 530 ml Output Total 10 ml Balance 622.25 ml 530 ml Intake Oral 240 ml 360 ml IV Total 392.25 ml 170 ml Output Urine Total 10 ml Hemodialysis UF 0 ml # Voids 2 # Bowel Movements 1 2 Dressing: dry Wound: clean Cardiovascular: RSR Respiratory: decreased breath sounds Abdomen: soft, non-tender, present bowel sounds Extremities: edema, no tenderness, no cyanosis Laboratory Tests Test 11/28/19 02:00 11/28/19 03:55 Stool Occult Blood Negative (NEGATIVE) White Blood Count 20.7 K/UL (4.8-10.8) H Red Blood Count 3.55 M/UL (4.20-5.40) L Hemoglobin 7.9 G/DL (12.0-16.0) L Hematocrit 25.5 % (37.0-47.0) L Mean Corpuscular Volume 72 FL (80-99) L Mean Corpuscular Hemoglobin 22.1 PG (27.0-31.0) L Mean Corpuscular Hemoglobin Concent 30.8 G/DL (32.0-36.0) L Red Cell Distribution Width 24.7 % (11.6-14.8) H Platelet Count 124 K/UL (150-450) L Mean Platelet Volume 6.1 FL (6.5-10.1) L Neutrophils (%) (Auto) % (45.0-75.0) Lymphocytes (%) (Auto) % (20.0-45.0) Monocytes (%) (Auto) % (1.0-10.0) Eosinophils (%) (Auto) % (0.0-3.0) Basophils (%) (Auto) % (0.0-2.0) Differential Total Cells Counted 100 Neutrophils % (Manual) 86 % (45-75) H Lymphocytes % (Manual) 7 % (20-45) L Monocytes % (Manual) 7 % (1-10) Eosinophils % (Manual) 0 % (0-3) Basophils % (Manual) 0 % (0-2) Band Neutrophils 0 % (0-8) Platelet Estimate Decreased L Platelet Morphology Normal Hypochromasia 3+ Anisocytosis 4+ Microcytosis 2+ Prothrombin Time 13.0 SEC (9.30-11.50) H Prothromb Time International Ratio 1.2 (0.9-1.1) H Sodium Level 145 MMOL/L (136-145) Potassium Level 4.3 MMOL/L (3.5-5.1) Chloride Level 104 MMOL/L (98-107) Carbon Dioxide Level 31 MMOL/L (21-32) Anion Gap 10 mmol/L (5-15) Blood Urea Nitrogen 54 mg/dL (7-18) H Creatinine 6.4 MG/DL (0.55-1.30) H Estimat Glomerular Filtration Rate 6.5 mL/min (>60) Glucose Level 126 MG/DL (74-106) H Calcium Level 7.7 MG/DL (8.5-10.1) L Phosphorus Level 6.2 MG/DL (2.5-4.9) H Total Bilirubin 0.4 MG/DL (0.2-1.0) Direct Bilirubin 0.1 MG/DL (0.0-0.3) Aspartate Amino Transf (AST/SGOT) 35 U/L (15-37) Alanine Aminotransferase (ALT/SGPT) 20 U/L (12-78) Alkaline Phosphatase 119 U/L (46-116) H Total Protein 5.3 G/DL (6.4-8.2) L Albumin 1.5 G/DL (3.4-5.0) L Lipase 246 U/L (73-393) Plan Problems: (1) Anemia (2) Encephalopathy acute (3) Acute respiratory failure with hypoxia (4) Hyperkalemia (5) Sepsis Assessment & Plan: Leukocytosis anemia hyperkalemia abnormal labs HD catheter placed received dialysis and slowly potassium improved. Plan for repeat dialysis ordered. IV antibiotics per infectious disease Patient is alert awake but confused. Slowly improving No hematoma or bleeding identified Site looks clean We will continue with HD on a sure if renal function will improve may need permacath CT reviewed edema noted lymph nodes noted likely reactive Thank you for let me participate patient's care with follow with recommendations s/p filter placement stable ABDOMEN: Liver: Unremarkable. Gallbladder and bile ducts: Unremarkable. No calcified stones. No ductal dilation. Pancreas: Unremarkable. No ductal dilation. Spleen: Unremarkable. No splenomegaly. Adrenals: Unremarkable. No mass. Kidneys and ureters: Bilateral low-grade hydronephrosis. No radiopaque stones in the urinary tract identified except for nonobstructing 3 mm stone in the inferior pole left kidney. Stomach and bowel: Scattered colonic diverticuli. No obstruction. No mucosal thickening. PELVIS: Appendix: No findings to suggest acute appendicitis. Bladder: The urinary bladder is decompressed by an indwelling Kaminski catheter No stones. Reproductive: Unremarkable as visualized. ABDOMEN and PELVIS: Intraperitoneal space: Unremarkable. No free air. No significant fluid collection. Bones/joints: No acute fracture. No dislocation. Soft tissues: Anasarca. Vasculature: Unremarkable. No abdominal aortic aneurysm. Lymph nodes: Enlarged left superficial inguinal lymph node measuring 2 cm short axis There are bilateral enlarged external iliac lymph nodes, measuring 2.9 cm x 5.1 cm on the left and 2.7 x 2.0 cm on the right. Other findings: Beam hardening from patient's abdominal girth degrades detail. IMPRESSION: 1. Enlarged pelvic lymph nodes could reflect reactive changes from cellulitis in the setting of generalized bony wall edema, or other acute inflammatory changes but neoplasm such as lymphomas not excluded. Correlate clinically. Ultrasound of the pelvis could be considered to help distinguish patient's ovaries from presumed pelvic adenopathy. 2. Mild bilateral hydronephrosis, with a Kaminski catheter in the urinary bladder. Correlate with bladder catheter function. DAILY ESTIMATED NEEDS: Needs based on obesity, ARF + HD/ 67kg abw 22-25 kcals/kg 3162-9520 total kcals 1.2-1.8 w/ HD g protein/kg 81-120 g total protein Fluids per MD NUTRITION DIAGNOSIS: Altered nutrition related lab values R/T ARF, pre-diabetes as evidenced by elev BUN (157 -> 76 trend down), elev creat (142 -> 7.8), elev phos (6.8), elev mag (2.5). A1C of 6.0 w/ elev BGs (154 173 146). CURRENT DIET:RENAL, soft easy chew w/ NTL PO DIET RECOMMENDATIONS: RENAL, CCHO LOW/ texture per [employer] ADDITIONAL RECOMMENDATIONS: * Calibrated bedscale wt for accurate CBW- w/ added p200 mattress + pump * Phos binders w/ meals * Monitor renal fxn and continuity of HD- creat trending down * Monitor BGs, need for hypoglycemics -> rec carb controlled diet for BG and wt control. * Monitor PO intake and tolerance closely * Nephrovite x 1 as supplement (6) ARF (acute renal failure) (7) CAP (community acquired pneumonia) (8) Serum lipase elevation (9) Obesity (BMI 30-39.9) Angelo Naik Nov 28, 2019 13:48
--- NOTE | 2019-11-28 14:48 | Infectious Diseases Prog Note ---
Assessment/Plan ASSESSMENT: The patient is a 69-year-old female with: 1. Respiratory distress.- SP Bipap- sp NC> VM 40%, 8L 11/26> 4l NC 11/27 2. B/l Pneumonia- COVID neg x3 -11/24 sp cx MRSA -11/23 Rapid COVID PCR neg x2; 11/24 rapid COVID PCR neg -11/23 CT chest: Bilateral pneumonia, with greater confluence in the posterior right lower lobe. 3. SEvere Leukocytosis, acute reacted to distress versus sepsis. -on the high 20s-30s -likely multifactorial due to PE/DVT, PNA, pancreaitis, acute renal failure -pelvic US: LIMITED TRANSABDOMINAL STUDY ONLY WITH RELATIVELY POOR DELINEATION OF THE REPRODUCTIVE ORGANS. HETEROGENEOUS UTERUS WITH APPARENT FIBROID CHANGE. RIGHT OVARY NOT VISUALIZED AND ENDOMETRIAL STRIPE ALSO POORLY SEEN LEFT OVARY IS ONLY MARGINALLY SEEN AND GROSSLY UNREMARKABLE. -Abd US: STUDY LIMITED DUE TO BODY HABITUS AND BOWEL GAS. FATTY LIVER WITH A SMALL SEPTATED CYST. GALLSTONES.THE SPLEEN, LEFT KIDNEY, COMMON BILE DUCT AND PANCREAS WELL AORTA AND CAVA ARE NOT WELL DEFINED. -CT abd/p : Enlarged pelvic lymph nodes could reflect reactive changes from cellulitis in the setting of generalized bony wall edema, or other acute inflammatory changes but neoplasm such as lymphomas not excluded. Correlate clinically. Ultrasound of the pelvis could be considered to help distinguish patient's ovaries from presumed pelvic adenopathy.Mild bilateral hydronephrosis , with a Kaminski catheter in the urinary bladder. Correlate with bladder catheter function. 4. Sepsis. 5.r/o Probable UTI. -u/a p, ucx ; ucx NTD 6. Rule out probable bacteremia. -11/23 BCx NTD 7. L LE DVT and Probable PE -CTA chest: NO CT EVIDENCE OF PULMONARY EMBOLISM TO THE EXTENT VISUALIZED.BILATERAL INFILTRATES AND RIGHT LOWER LOBE CONSOLIDATION. THE CONSOLIDATION DOESOBSCURE SOME PERIPHERAL SUBSEGMENTAL BRANCHES OF THE RIGHT LOWER LOBE AND SMALLPERIPHERAL EMBOLI IN THIS AREA CANNOT BE EXCLUDED.MEDIASTINAL ADENOPATHY.ANASARCA. -11/25 SP IVC filter placement -v/q scan: Overall findings suggesting intermediate probability for pulmonary embolism. More sensitive evaluation can be made with CT angiogram of the chest as clinically indicated. -v. duplex: STUDY POSITIVE FOR DVT IN THE LEFT COMMON FEMORAL TO PROXIMAL SUPERFICIAL FEMORAL VEIN. 8. Severe acute renal failure; improving- likely underlying CKD -on HD now 9. Acute pancreatitis EtOh abuse PLAN: 1. We will continue the patient on IV Zosyn #5/5 and add ZYvox #3/7-10 for MRSA -11/23 SP CEftriaxone x1, Azythromycin x1, IV Vancomycin x1 2. Monitor blood culture. 3. Monitor urine culture. 4. COVID neg x3 (2 were sent on same day) 5. Monitor lipase. 6. f/u flow cytometry Based on the patient's clinical course and labs, we will do further recommendations. I have advised nursing staff to keep the patient in insolation until second test. Subjective Allergies: Coded Allergies: No Known Allergies (Unverified , 11/24/19) afebrile now at 4l NC wbc improving Bcx NTD Objective Last 24 Hour Vital Signs Date Time Temp Pulse Resp B/P (MAP) Pulse Ox O2 Delivery O2 Flow Rate FiO2 11/28/19 12:00 97.2 76 24 120/62 (81) 94 11/28/19 12:00 Nasal Cannula 4.0 11/28/19 12:00 4.0 11/28/19 12:00 77 11/28/19 08:00 8.0 35 11/28/19 08:00 71 11/28/19 08:00 97.4 70 19 107/54 (71) 99 11/28/19 08:00 Venturi Mask 8.0 11/28/19 07:00 98 Venturi Mask 8.0 40 11/28/19 04:00 Venturi Mask 8.0 11/28/19 04:00 97.7 71 21 106/57 (73) 98 11/28/19 04:00 71 11/28/19 04:00 8.0 40 11/28/19 00:00 97.7 75 20 110/63 (79) 95 11/28/19 00:00 70 11/28/19 00:00 Venturi Mask 8.0 11/27/19 20:00 97.7 72 27 113/57 (75) 99 11/27/19 20:00 Venturi Mask 8.0 11/27/19 20:00 72 11/27/19 20:00 8.0 40 11/27/19 19:07 97 Venturi Mask 8.0 40 11/27/19 16:00 97.7 71 29 119/48 (71) 98 7/28/20 16:00 Venturi Mask 8.0 11/27/19 16:00 79 11/27/19 16:00 8.0 40 Height (Feet): 5 Height (Inches): 4.00 Weight (Pounds): 245 HEENT: No pale conjunctivae. No icterus. NECK: No lymphadenopathy. CHEST: Coarse breathing sounds. HEART: S1-S2. ABDOMEN: Obese. EXTREMITIES: No cyanosis at this time. NEUROLOGIC: Awake. Microbiology Date/Time Source Procedure Growth Status 11/26/19 13:20 Indwelling Cath Urine Culture - Preliminary NO GROWTH AFTER 24 HOURS Resulted Laboratory Tests Test 11/28/19 02:00 11/28/19 03:55 Stool Occult Blood Negative (NEGATIVE) White Blood Count 20.7 K/UL (4.8-10.8) H Red Blood Count 3.55 M/UL (4.20-5.40) L Hemoglobin 7.9 G/DL (12.0-16.0) L Hematocrit 25.5 % (37.0-47.0) L Mean Corpuscular Volume 72 FL (80-99) L Mean Corpuscular Hemoglobin 22.1 PG (27.0-31.0) L Mean Corpuscular Hemoglobin Concent 30.8 G/DL (32.0-36.0) L Red Cell Distribution Width 24.7 % (11.6-14.8) H Platelet Count 124 K/UL (150-450) L Mean Platelet Volume 6.1 FL (6.5-10.1) L Neutrophils (%) (Auto) % (45.0-75.0) Lymphocytes (%) (Auto) % (20.0-45.0) Monocytes (%) (Auto) % (1.0-10.0) Eosinophils (%) (Auto) % (0.0-3.0) Basophils (%) (Auto) % (0.0-2.0) Differential Total Cells Counted 100 Neutrophils % (Manual) 86 % (45-75) H Lymphocytes % (Manual) 7 % (20-45) L Monocytes % (Manual) 7 % (1-10) Eosinophils % (Manual) 0 % (0-3) Basophils % (Manual) 0 % (0-2) Band Neutrophils 0 % (0-8) Platelet Estimate Decreased L Platelet Morphology Normal Hypochromasia 3+ Anisocytosis 4+ Microcytosis 2+ Prothrombin Time 13.0 SEC (9.30-11.50) H Prothromb Time International Ratio 1.2 (0.9-1.1) H Sodium Level 145 MMOL/L (136-145) Potassium Level 4.3 MMOL/L (3.5-5.1) Chloride Level 104 MMOL/L (98-107) Carbon Dioxide Level 31 MMOL/L (21-32) Anion Gap 10 mmol/L (5-15) Blood Urea Nitrogen 54 mg/dL (7-18) H Creatinine 6.4 MG/DL (0.55-1.30) H Estimat Glomerular Filtration Rate 6.5 mL/min (>60) Glucose Level 126 MG/DL (74-106) H Calcium Level 7.7 MG/DL (8.5-10.1) L Phosphorus Level 6.2 MG/DL (2.5-4.9) H Total Bilirubin 0.4 MG/DL (0.2-1.0) Direct Bilirubin 0.1 MG/DL (0.0-0.3) Aspartate Amino Transf (AST/SGOT) 35 U/L (15-37) Alanine Aminotransferase (ALT/SGPT) 20 U/L (12-78) Alkaline Phosphatase 119 U/L (46-116) H Total Protein 5.3 G/DL (6.4-8.2) L Albumin 1.5 G/DL (3.4-5.0) L Lipase 246 U/L (73-393) Current Medications Medications (Trade) Dose Ordered Sig/Brina Route PRN Reason Start Time Stop Time Status Last Admin Dose Admin Acetaminophen (Tylenol) 650 mg Q8H PRN NG Mild Pain (Pain Scale 1-3) 11/27/19 08:30 12/27/19 08:29 Acetaminophen/ Hydrocodone Bitart ([place] 10/325) 1 tab Q8H PRN ORAL Severe Pain (Pain Scale 7-10) 11/27/19 08:30 12/04/19 08:29 Acetaminophen/ Hydrocodone Bitart ([place] 5/325) 1 tab Q8H PRN ORAL Moderate Pain (Pain Scale 4-6) 11/27/19 08:30 12/04/19 08:29 Albuterol/ Ipratropium (Albuterol/ Ipratropium) 3 ml Q4H PRN HHN Shortness of Breath 11/25/19 18:30 11/29/19 18:29 Albuterol/ Ipratropium (Albuterol/ Ipratropium) 3 ml Q4H PRN HHN sob 11/25/19 19:00 11/30/19 18:59 11/27/19 13:52 Aluminum Hydroxide (Amphojel) 1,920 mg Q6H ORAL 11/25/19 22:00 12/25/19 09:59 11/28/19 09:13 Barium Sulfate (Varibar Honey) 250 ml NOW PRN Radiology Procedure 11/27/19 16:00 11/30/19 15:57 Barium Sulfate (Varibar [place]) 230 ml NOW PRN Radiology Procedure 11/27/19 16:00 11/30/19 15:57 Barium Sulfate (Varibar Pudding) 230 ml NOW PRN Radiology Procedure 11/27/19 16:00 11/30/19 15:57 Chlorhexidine Gluconate ([place]-Hex 2%) 1 applic DAILY@2000 TOPIC 11/26/19 20:00 02/24/20 19:59 11/27/19 20:00 Docusate Sodium (Colace) 100 mg THREE TIMES A DAY ORAL 11/26/19 09:00 12/25/19 08:59 11/28/19 12:22 Epoetin Zay (Epoetin Zay(ESRD on dialysis)) 10,000 unit TUE-TUE-TUE SUBQ 11/26/19 21:00 02/24/20 20:59 11/26/19 21:02 Iohexol (OMNIPAQUE-300 100ml) 100 ml ONCE PRN INJ RADIOLOGY 11/26/19 15:24 11/28/19 15:23 Iohexol (Omnipaque 350 100ml) 100 ml NOW PRN INJ Radiology Procedure 11/26/19 20:00 11/28/19 19:46 Iron Sucrose 100 mg/Sodium Chloride 60 ml @ 240 mls/hr BEDTIME IV 11/25/19 21:00 11/29/19 21:14 11/27/19 20:01 Linezolid (Zyvox) 600 mg EVERY 12 HOURS ORAL 11/26/19 12:00 12/01/19 11:59 11/28/19 09:13 Lorazepam (Ativan 2mg/ml 1ml) 1 mg Q4H PRN IV For Anxiety 11/25/19 18:45 12/02/19 10:44 Morphine Sulfate (Morphine Sulfate) 1 mg Q8H PRN IVP For Pain 11/25/19 18:30 12/02/19 18:29 Pantoprazole (Protonix) 40 mg DAILY IVP 11/28/19 09:00 12/28/19 08:59 11/28/19 09:13 Piperacillin Sod/ Tazobactam Sod 2.25 gm/Dextrose 55 ml @ 110 mls/hr Q8HR@0200,1000,1800 IV 11/26/19 02:00 12/01/19 09:59 11/28/19 09:14 Polyethylene Glycol (Miralax) 17 gm BEDTIME ORAL 11/27/19 21:00 12/27/19 20:59 11/27/19 21:51 Thiamine HCl 100 mg/Dextrose 56 ml @ 112 mls/hr Q24H IVPB 11/26/19 12:00 12/25/19 11:59 11/28/19 12:22 Britt Jimenez M.D. Nov 28, 2019 14:48
--- NOTE | 2019-11-28 15:04 | Nephrology Progress Note ---
Assessment/Plan Problem List: (1) ARF (acute renal failure) (2) Sepsis (3) CAP (community acquired pneumonia) (4) Hyperkalemia (5) Encephalopathy acute (6) Anemia (7) Alcohol abuse Assessment: Long history as per daughter (8) Serum lipase elevation (9) Obesity (BMI 30-39.9) (10) Fatty liver Assessment Acute renal failure and hyperkalemia Most likely underlying chronic kidney disease Sepsis, pneumonia Toxic metabolic encephalopathy Severe anemia Morbid obesity Acute hypoxemic respiratory failure Elevated lipase possible pancreatitis Enlarged pelvic lymph nodes Anasarca History of EtOH abuse Possible psychiatric disorder Plan November 27: Plan for dialysis tomorrow. White BC is 20,000. Thiamine and Protonix was changed to p.o. Renvela added as phosphorus binder November 26: Due for dialysis today. Leukocytosis persists. Continue per consultants. November 25. Patient was dialyzed 2 days in a row. Will order dialysis tomorrow. Leukocytosis persists. Patient on antibiotics. November 24: Patient was dialyzed yesterday. Serum potassium now within normal range. ABG improved. Discussed with RN. IV changed. Dialysis ordered again today. IV thiamine started. Ativan for agitation ordered. Recheck labs tomorrow. Continue per consultants. Amphojel as phosphorus binder also started. Previously: Anemia work-up ordered IV Venofer, subcu Epogen ordered Continue to monitor renal parameters Per orders Subjective ROS Limited/Unobtainable: No Constitutional: Reports: malaise, weakness Objective Objective Last 24 Hour Vital Signs Date Time Temp Pulse Resp B/P (MAP) Pulse Ox O2 Delivery O2 Flow Rate FiO2 11/28/19 12:00 97.2 76 24 120/62 (81) 94 11/28/19 12:00 Nasal Cannula 4.0 11/28/19 12:00 4.0 11/28/19 12:00 77 11/28/19 08:00 8.0 35 11/28/19 08:00 71 11/28/19 08:00 97.4 70 19 107/54 (71) 99 11/28/19 08:00 Venturi Mask 8.0 11/28/19 07:00 98 Venturi Mask 8.0 40 11/28/19 04:00 Venturi Mask 8.0 11/28/19 04:00 97.7 71 21 106/57 (73) 98 11/28/19 04:00 71 11/28/19 04:00 8.0 40 11/28/19 00:00 97.7 75 20 110/63 (79) 95 11/28/19 00:00 70 11/28/19 00:00 Venturi Mask 8.0 11/27/19 20:00 97.7 72 27 113/57 (75) 99 11/27/19 20:00 Venturi Mask 8.0 11/27/19 20:00 72 11/27/19 20:00 8.0 40 11/27/19 19:07 97 Venturi Mask 8.0 40 11/27/19 16:00 97.7 71 29 119/48 (71) 98 11/27/19 16:00 Venturi Mask 8.0 11/27/19 16:00 79 11/27/19 16:00 8.0 40 Intake and Output 11/27/19 11/28/19 19:00 07:00 Intake Total 632.25 ml 530 ml Output Total 10 ml Balance 622.25 ml 530 ml Intake Oral 240 ml 360 ml IV Total 392.25 ml 170 ml Output Urine Total 10 ml Hemodialysis UF 0 ml # Voids 2 # Bowel Movements 1 2 Laboratory Tests 11/28/19 02:00: Stool Occult Blood Negative 11/28/19 03:55: White Blood Count 20.7H, Red Blood Count 3.55L, Hemoglobin 7.9L, Hematocrit 25.5L, Mean Corpuscular Volume 72L, Mean Corpuscular Hemoglobin 22.1L, Mean Corpuscular Hemoglobin Concent 30.8L, Red Cell Distribution Width 24.7H, Platelet Count 124L, Mean Platelet Volume 6.1L, Neutrophils (%) (Auto) , Lymphocytes (%) (Auto) , Monocytes (%) (Auto) , Eosinophils (%) (Auto) , Basophils (%) (Auto) , Differential Total Cells Counted 100, Neutrophils % ( Manual) 86H, Lymphocytes % (Manual) 7L, Monocytes % (Manual) 7, Eosinophils % ( Manual) 0, Basophils % (Manual) 0, Band Neutrophils 0, Platelet Estimate DecreasedL, Platelet Morphology Normal, Hypochromasia 3+, Anisocytosis 4+, Microcytosis 2+, Prothrombin Time 13.0H, Prothromb Time International Ratio 1.2H , Sodium Level 145, Potassium Level 4.3, Chloride Level 104, Carbon Dioxide Level 31, Anion Gap 10, Blood Urea Nitrogen 54H, Creatinine 6.4H, Estimat Glomerular Filtration Rate 6.5, Glucose Level 126H, Calcium Level 7.7L, Phosphorus Level 6.2H, Total Bilirubin 0.4, Direct Bilirubin 0.1, Aspartate Amino Transf (AST/SGOT) 35, Alanine Aminotransferase (ALT/SGPT) 20, Alkaline Phosphatase 119H, Total Protein 5.3L, Albumin 1.5L, Lipase 246 Height (Feet): 5 Height (Inches): 4.00 Weight (Pounds): 245 General Appearance: no apparent distress Cardiovascular: normal rate Respiratory/Chest: decreased breath sounds Abdomen: distended, other - Obese Objective No other change Jean-Pierre Garcia MD Nov 28, 2019 15:04
[2019-11-28 16:00] VITALS: BP 133/67
[2019-11-28 20:00] VITALS: BP 130/67
[2019-11-28] MEDS: Epoetin Alfa-EPBX(ESRD on dialysis)10,000 unit/ml vial SUBQ SCH (20:57)
[2019-11-28] MEDS: Iron Sucrose 100 MG in NS 55 ML IV SCH (20:57)
[2019-11-28] MEDS: Dyna-Hex 2% Top Sol 2oz TOPIC SCH (20:59)
[2019-11-28] MEDS: Miralax 17gm pkt ORAL SCH (20:59)
--- NOTE | 2019-11-28 23:56 | Cardiology Progress Note ---
Assessment/Plan Assessment/Plan 1. Acute diastolic congestive heart failure, aggressive hemodialysis for decrease of preload. 2. Hyperkalemia, resolved. 3. Alcohol abuse. 4. Acute kidney injury. 5. Dyslipidemia with low HDL. 6. CAP. Subjective Subjective Sinus rhythm at rate of 80. Venturi mask, FIO2 of 40%. Objective Last 24 Hour Vital Signs Date Time Temp Pulse Resp B/P (MAP) Pulse Ox O2 Delivery O2 Flow Rate FiO2 11/28/19 20:00 8.0 40 11/28/19 20:00 97.7 80 22 130/67 (88) 94 11/28/19 20:00 Venturi Mask 8.0 11/28/19 19:05 79 11/28/19 19:01 97 Venturi Mask 8.0 40 11/28/19 16:00 Venturi Mask 8.0 11/28/19 16:00 8.0 40 11/28/19 16:00 97.3 81 23 133/67 (89) 98 11/28/19 14:00 80 11/28/19 12:00 97.2 76 24 120/62 (81) 94 11/28/19 12:00 Nasal Cannula 4.0 11/28/19 12:00 4.0 11/28/19 12:00 77 11/28/19 08:00 8.0 35 11/28/19 08:00 71 11/28/19 08:00 97.4 70 19 107/54 (71) 99 11/28/19 08:00 Venturi Mask 8.0 11/28/19 07:00 98 Venturi Mask 8.0 40 11/28/19 04:00 Venturi Mask 8.0 11/28/19 04:00 97.7 71 21 106/57 (73) 98 11/28/19 04:00 71 11/28/19 04:00 8.0 40 11/28/19 00:00 97.7 75 20 110/63 (79) 95 11/28/19 00:00 70 11/28/19 00:00 Venturi Mask 8.0 Intake and Output 11/27/19 11/28/19 19:00 07:00 Intake Total 632.25 ml 530 ml Output Total 10 ml Balance 622.25 ml 530 ml Intake Oral 240 ml 360 ml IV Total 392.25 ml 170 ml Output Urine Total 10 ml Hemodialysis UF 0 ml # Voids 2 # Bowel Movements 1 2 2D Echo: LVEF 65%, RVSP 58 mmHg, Grade I LVDD Laboratory Tests Test 11/28/19 02:00 11/28/19 03:55 11/28/19 16:00 Stool Occult Blood Negative (NEGATIVE) Pending White Blood Count 20.7 K/UL (4.8-10.8) H Red Blood Count 3.55 M/UL (4.20-5.40) L Hemoglobin 7.9 G/DL (12.0-16.0) L Hematocrit 25.5 % (37.0-47.0) L Mean Corpuscular Volume 72 FL (80-99) L Mean Corpuscular Hemoglobin 22.1 PG (27.0-31.0) L Mean Corpuscular Hemoglobin Concent 30.8 G/DL (32.0-36.0) L Red Cell Distribution Width 24.7 % (11.6-14.8) H Platelet Count 124 K/UL (150-450) L Mean Platelet Volume 6.1 FL (6.5-10.1) L Neutrophils (%) (Auto) % (45.0-75.0) Lymphocytes (%) (Auto) % (20.0-45.0) Monocytes (%) (Auto) % (1.0-10.0) Eosinophils (%) (Auto) % (0.0-3.0) Basophils (%) (Auto) % (0.0-2.0) Differential Total Cells Counted 100 Neutrophils % (Manual) 86 % (45-75) H Lymphocytes % (Manual) 7 % (20-45) L Monocytes % (Manual) 7 % (1-10) Eosinophils % (Manual) 0 % (0-3) Basophils % (Manual) 0 % (0-2) Band Neutrophils 0 % (0-8) Platelet Estimate Decreased L Platelet Morphology Normal Hypochromasia 3+ Anisocytosis 4+ Microcytosis 2+ Prothrombin Time 13.0 SEC (9.30-11.50) H Prothromb Time International Ratio 1.2 (0.9-1.1) H Sodium Level 145 MMOL/L (136-145) Potassium Level 4.3 MMOL/L (3.5-5.1) Chloride Level 104 MMOL/L (98-107) Carbon Dioxide Level 31 MMOL/L (21-32) Anion Gap 10 mmol/L (5-15) Blood Urea Nitrogen 54 mg/dL (7-18) H Creatinine 6.4 MG/DL (0.55-1.30) H Estimat Glomerular Filtration Rate 6.5 mL/min (>60) Glucose Level 126 MG/DL (74-106) H Calcium Level 7.7 MG/DL (8.5-10.1) L Phosphorus Level 6.2 MG/DL (2.5-4.9) H Total Bilirubin 0.4 MG/DL (0.2-1.0) Direct Bilirubin 0.1 MG/DL (0.0-0.3) Aspartate Amino Transf (AST/SGOT) 35 U/L (15-37) Alanine Aminotransferase (ALT/SGPT) 20 U/L (12-78) Alkaline Phosphatase 119 U/L (46-116) H Total Protein 5.3 G/DL (6.4-8.2) L Albumin 1.5 G/DL (3.4-5.0) L Lipase 246 U/L (73-393) Microbiology Date/Time Source Procedure Growth Status 11/26/19 13:20 Indwelling Cath Urine Culture - Preliminary NO GROWTH AFTER 24 HOURS Resulted Objective HEENT: Atraumatic, normocephalic. ENT, pupils are equal, round, and reactive to light and accommodation. Positive pallor. NECK: Cannot assess JVP due to obesity and short neck and current use of BiPAP mask. No carotid bruit. Carotid upstrokes 2+ bilaterally. CARDIOVASCULAR: Normal S1, S2. Regular rate and rhythm. No murmurs, gallops, or rubs. PMI is at fourth intercostal space in the midclavicular line. LUNGS: Bilateral crackles, mostly in the bases. ABDOMEN: Soft, nondistended. No hepatosplenomegaly. Positive bowel sounds. EXTREMITIES: No evidence of edema, clubbing, or cyanosis. Adryan Lopez MD Nov 28, 2019 23:56
[2019-11-29] VITALS: BP 126/56
[2019-11-29] MEDS: Piperacillin/Tazobactam 2.25 GM in D5W 55 ML IV SCH ×3 (01:08→18:00)
[2019-11-29 04:00] VITALS: BP 118/53
[2019-11-29 04:57] LABS: HEMATOCRIT 26.3 % (37.0-47.0); MEAN CORPUSCULAR VOLUME 72 FL (80-99); PLATELET COUNT 115 K/UL (150-450); RED BLOOD COUNT 3.63 M/UL (4.20-5.40); RED CELL DISTRIBUTION WIDTH 25.8 % (11.6-14.8); WHITE BLOOD COUNT 20.1 K/UL (4.8-10.8)
[2019-11-29 05:06] LABS: BILIRUBIN, URINE NEGATIVE (NEGATIVE); COLOR,URINE PALE YELLOW; GLUCOSE, URINE (UA) NEGATIVE (NEGATIVE); KETONES,URINE NEGATIVE (NEGATIVE); LEUKOCYTE ESTERASE ,URINE 3+ (NEGATIVE); NITRITE,URINE NEGATIVE (NEGATIVE); PH,URINE 6 (4.5-8.0); PROTEIN,URINE 4+ (NEGATIVE); UROBILINOGEN,URINE NORMAL MG/DL (0.0-1.0)
[2019-11-29 05:24] LABS: ALANINE AMINOTRANSFERASE 26 U/L (12-78); ALBUMIN 1.5 G/DL (3.4-5.0); ALBUMIN/GLOBULIN RATIO 0.4 (1.0-2.7); ALKALINE PHOSPHATASE 118 U/L (46-116); ANION GAP 10 mmol/L (5-15); ASPARTATE AMINO TRANSFERASE 31 U/L (15-37); BILIRUBIN,TOTAL 0.4 MG/DL (0.2-1.0); BLOOD UREA NITROGEN 67 mg/dL (7-18); CALCIUM 7.4 MG/DL (8.5-10.1); CARBON DIOXIDE 30 MMOL/L (21-32); CHLORIDE 103 MMOL/L (98-107); CREATININE 7.1 MG/DL (0.55-1.30); POTASSIUM 4.5 MMOL/L (3.5-5.1); SODIUM 143 MMOL/L (136-145)
[2019-11-29 05:29] LABS: APPEARANCE,URINE SLIGHTLY CLOUDY
[2019-11-29 05:37] LABS: PHOSPHORUS 6.1 MG/DL (2.5-4.9)
[2019-11-29 08:00] VITALS: BP 100/50
[2019-11-29] MEDS: Thiamine 100mg tab ORAL SCH (08:43)
[2019-11-29] MEDS: Docusate 100mg cap ORAL SCH ×3 (08:43→18:13)
--- NOTE | 2019-11-29 10:08 | General Progress Note ---
Assessment/Plan Assessment/Plan: S, O: pt is awake , poor historian, seen and examined in step down unit. in mild sob. on BIPAP PHYSICAL EXAMINATION:HEAD AND NECK: Atraumatic and normocephalic. CHEST: Diffuse bronchial breathing sounds.HEART: S1 and S2. Regular rate and rhythm. ABDOMEN: Soft. No organomegaly. Protuberant. No tenderness. MUSCULOSKELETAL: Right inguinal HD- access noted, No gross lateralized motor deficit. It is limited examination as the patient is not cooperative. b/l le edema and tenderness NEUROLOGIC: The patient is delirious. DIAGNOSTIC AND LABORATORY DATA: Imaging, Chest -CT dated November 26 Labs, dated November 28 reviwed ASSESSMENT: 1. Severe sepsis. 2. PNA- Bilateral 3. Hypoxemic respiratory failure. 3. Hyperkalemia. 4. End-stage renal disease. 5. CHF, likely diagnosis. 6. Abnormal blood sugar. 7. Acute on chronic Microcytic anemia. 8. GI and DVT prophylaxis. 9. LE DVT- Bilateral PLAN OF CARE: contra indication for anticoagulation . D/W Hemonch regarding IVC notes form ID, Nephrology reviewed S/P IVC filter placement. Given the importance of diagnosis of PE in the risk stratification decision for longterm ATC, will proceed with Chest CT-Angio No additional ATC at this time, pending stool occult test I called the daughter Piper and updated her about over medical cnd on November 27 around 2 PM Subjective Allergies: Coded Allergies: No Known Allergies (Unverified , 11/24/19) Objective Last 24 Hour Vital Signs Date Time Temp Pulse Resp B/P (MAP) Pulse Ox O2 Delivery O2 Flow Rate FiO2 11/29/19 08:00 Venturi Mask 8.0 11/29/19 08:00 97.3 75 18 100/50 (67) 100 11/29/19 08:00 8.0 40 11/29/19 07:32 72 11/29/19 07:10 98 Venturi Mask 8.0 40 11/29/19 04:00 Venturi Mask 8.0 11/29/19 04:00 72 11/29/19 04:00 98.1 75 18 118/53 (74) 100 11/29/19 04:00 8.0 40 11/29/19 00:00 Venturi Mask 8.0 11/29/19 00:00 97.2 75 19 126/56 (79) 95 11/28/19 23:27 84 11/28/19 20:00 8.0 40 11/28/19 20:00 97.7 80 22 130/67 (88) 94 11/28/19 20:00 Venturi Mask 8.0 11/28/19 19:05 79 11/28/19 19:01 97 Venturi Mask 8.0 40 11/28/19 16:00 Venturi Mask 8.0 11/28/19 16:00 8.0 40 11/28/19 16:00 97.3 81 23 133/67 (89) 98 11/28/19 14:00 80 11/28/19 12:00 97.2 76 24 120/62 (81) 94 11/28/19 12:00 Nasal Cannula 4.0 11/28/19 12:00 4.0 11/28/19 12:00 77 Intake and Output 11/28/19 11/29/19 19:00 07:00 Intake Total 1406 ml 60 ml Balance 1406 ml 60 ml Intake Oral 1200 ml IV Total 166 ml 60 ml Other 40 ml # Bowel Movements 2 Laboratory Tests 11/28/19 16:00: Stool Occult Blood [Pending] 11/29/19 00:30: Urine Color Pale yellow, Urine Appearance Slightly cloudy, Urine pH 6, Urine Specific [place] 1.010, Urine Protein 4+H, Urine Glucose (UA) Negative, Urine Ketones Negative, Urine Blood 5+H, Urine Nitrite Negative, Urine Bilirubin Negative, Urine Urobilinogen Normal, Urine Leukocyte Esterase 3+H, Urine RBC TntcH, Urine WBC 10-15H, Urine Squamous Epithelial Cells None, Urine Bacteria ModerateH 11/29/19 03:33: White Blood Count 20.1H, Red Blood Count 3.63L, Hemoglobin 8.0L, Hematocrit 26.3L, Mean Corpuscular Volume 72L, Mean Corpuscular Hemoglobin 22.1L, Mean Corpuscular Hemoglobin Concent 30.4L, Red Cell Distribution Width 25.8H, Platelet Count 115L, Mean Platelet Volume 7.0, Neutrophils (%) (Auto) , Lymphocytes (%) (Auto) , Monocytes (%) (Auto) , Eosinophils (%) (Auto) , Basophils (%) (Auto) , Differential Total Cells Counted 100, Neutrophils % ( Manual) 82H, Lymphocytes % (Manual) 7L, Monocytes % (Manual) 9, Eosinophils % ( Manual) 2, Basophils % (Manual) 0, Band Neutrophils 0, Platelet Estimate DecreasedL, Platelet Morphology Normal, Polychromasia 1+, Hypochromasia 1+, Anisocytosis 3+, Microcytosis 1+, Sodium Level 143, Potassium Level 4.5, Chloride Level 103, Carbon Dioxide Level 30, Anion Gap 10, Blood Urea Nitrogen 67H, Creatinine 7.1H, Estimat Glomerular Filtration Rate 5.7, Glucose Level 97, Calcium Level 7.4L, Phosphorus Level 6.1H, Magnesium Level 2.4, Total Bilirubin 0.4, Gamma Glutamyl Transpeptidase 28, Aspartate Amino Transf (AST/SGOT) 31, Alanine Aminotransferase (ALT/SGPT) 26, Alkaline Phosphatase 118H, C-Reactive Protein, Quantitative 42.4H, Pro-B-Type Natriuretic Peptide 3108H, Total Protein 5.5L, Albumin 1.5L, Globulin 4.0, Albumin/Globulin Ratio 0.4L Height (Feet): 5 Height (Inches): 4.00 Weight (Pounds): 244 Rebecca Schroeder MD Nov 29, 2019 10:08
--- NOTE | 2019-11-29 10:12 | Nephrology Progress Note ---
Assessment/Plan Problem List: (1) ARF (acute renal failure) (2) Sepsis (3) CAP (community acquired pneumonia) (4) Hyperkalemia (5) Encephalopathy acute (6) Anemia (7) Alcohol abuse Assessment: Long history as per daughter (8) Serum lipase elevation (9) Obesity (BMI 30-39.9) (10) Fatty liver Assessment Acute renal failure and hyperkalemia Most likely underlying chronic kidney disease Sepsis, pneumonia Toxic metabolic encephalopathy Severe anemia Morbid obesity Acute hypoxemic respiratory failure Elevated lipase possible pancreatitis Enlarged pelvic lymph nodes Anasarca History of EtOH abuse Possible psychiatric disorder Plan November 28: Due for dialysis today. Leukocytosis persist. Plan for placement of a permacath when stable from ID standpoint of view. November 27: Plan for dialysis tomorrow. White BC is 20,000. Thiamine and Protonix was changed to p.o. Renvela added as phosphorus binder November 26: Due for dialysis today. Leukocytosis persists. Continue per consultants. November 25. Patient was dialyzed 2 days in a row. Will order dialysis tomorrow. Leukocytosis persists. Patient on antibiotics. November 24: Patient was dialyzed yesterday. Serum potassium now within normal range. ABG improved. Discussed with RN. IV changed. Dialysis ordered again today. IV thiamine started. Ativan for agitation ordered. Recheck labs tomorrow. Continue per consultants. Amphojel as phosphorus binder also started. Previously: Anemia work-up ordered IV Venofer, subcu Epogen ordered Continue to monitor renal parameters Per orders Subjective ROS Limited/Unobtainable: No Constitutional: Reports: malaise Objective Objective Last 24 Hour Vital Signs Date Time Temp Pulse Resp B/P (MAP) Pulse Ox O2 Delivery O2 Flow Rate FiO2 11/29/19 08:00 Venturi Mask 8.0 11/29/19 08:00 97.3 75 18 100/50 (67) 100 11/29/19 08:00 8.0 40 11/29/19 07:32 72 11/29/19 07:10 98 Venturi Mask 8.0 40 11/29/19 04:00 Venturi Mask 8.0 11/29/19 04:00 72 11/29/19 04:00 98.1 75 18 118/53 (74) 100 11/29/19 04:00 8.0 40 7/30/20 00:00 Venturi Mask 8.0 11/29/19 00:00 97.2 75 19 126/56 (79) 95 11/28/19 23:27 84 11/28/19 20:00 8.0 40 11/28/19 20:00 97.7 80 22 130/67 (88) 94 11/28/19 20:00 Venturi Mask 8.0 11/28/19 19:05 79 11/28/19 19:01 97 Venturi Mask 8.0 40 11/28/19 16:00 Venturi Mask 8.0 11/28/19 16:00 8.0 40 11/28/19 16:00 97.3 81 23 133/67 (89) 98 11/28/19 14:00 80 11/28/19 12:00 97.2 76 24 120/62 (81) 94 11/28/19 12:00 Nasal Cannula 4.0 11/28/19 12:00 4.0 11/28/19 12:00 77 Intake and Output 11/28/19 11/29/19 19:00 07:00 Intake Total 1406 ml 60 ml Balance 1406 ml 60 ml Intake Oral 1200 ml IV Total 166 ml 60 ml Other 40 ml # Bowel Movements 2 Laboratory Tests 11/28/19 16:00: Stool Occult Blood [Pending] 11/29/19 00:30: Urine Color Pale yellow, Urine Appearance Slightly cloudy, Urine pH 6, Urine Specific [place] 1.010, Urine Protein 4+H, Urine Glucose (UA) Negative, Urine Ketones Negative, Urine Blood 5+H, Urine Nitrite Negative, Urine Bilirubin Negative, Urine Urobilinogen Normal, Urine Leukocyte Esterase 3+H, Urine RBC TntcH, Urine WBC 10-15H, Urine Squamous Epithelial Cells None, Urine Bacteria ModerateH 11/29/19 03:33: White Blood Count 20.1H, Red Blood Count 3.63L, Hemoglobin 8.0L, Hematocrit 26.3L, Mean Corpuscular Volume 72L, Mean Corpuscular Hemoglobin 22.1L, Mean Corpuscular Hemoglobin Concent 30.4L, Red Cell Distribution Width 25.8H, Platelet Count 115L, Mean Platelet Volume 7.0, Neutrophils (%) (Auto) , Lymphocytes (%) (Auto) , Monocytes (%) (Auto) , Eosinophils (%) (Auto) , Basophils (%) (Auto) , Differential Total Cells Counted 100, Neutrophils % ( Manual) 82H, Lymphocytes % (Manual) 7L, Monocytes % (Manual) 9, Eosinophils % ( Manual) 2, Basophils % (Manual) 0, Band Neutrophils 0, Platelet Estimate DecreasedL, Platelet Morphology Normal, Polychromasia 1+, Hypochromasia 1+, Anisocytosis 3+, Microcytosis 1+, Sodium Level 143, Potassium Level 4.5, Chloride Level 103, Carbon Dioxide Level 30, Anion Gap 10, Blood Urea Nitrogen 67H, Creatinine 7.1H, Estimat Glomerular Filtration Rate 5.7, Glucose Level 97, Calcium Level 7.4L, Phosphorus Level 6.1H, Magnesium Level 2.4, Total Bilirubin 0.4, Gamma Glutamyl Transpeptidase 28, Aspartate Amino Transf (AST/SGOT) 31, Alanine Aminotransferase (ALT/SGPT) 26, Alkaline Phosphatase 118H, C-Reactive Protein, Quantitative 42.4H, Pro-B-Type Natriuretic Peptide 3108H, Total Protein 5.5L, Albumin 1.5L, Globulin 4.0, Albumin/Globulin Ratio 0.4L Height (Feet): 5 Height (Inches): 4.00 Weight (Pounds): 244 General Appearance: no apparent distress Cardiovascular: normal rate Respiratory/Chest: decreased breath sounds Abdomen: soft Objective No other change Jean-Pierre Garcia MD Nov 29, 2019 10:12
--- NOTE | 2019-11-29 10:19 | General Progress Note ---
Assessment/Plan Assessment/Plan: 1. Acute renal failure. 2. Leukocytosis. 3. History of alcohol abuse. 4. Profound microcytic anemia. 5. Prior history of possible psychiatric disorder. 6. Elevated lipase. 7. Mild transaminitis. 8. Pelvic lymphadenopathy. 9. obesity 10. DVT s/p IVC filter placement 11. PNA fu labs on oral diet stable H&H had BM>>> fu stool ob HD per nephrology abx Subjective ROS Limited/Unobtainable: No Allergies: Coded Allergies: No Known Allergies (Unverified , 11/24/19) Subjective more alert Objective Last 24 Hour Vital Signs Date Time Temp Pulse Resp B/P (MAP) Pulse Ox O2 Delivery O2 Flow Rate FiO2 11/29/19 08:00 Venturi Mask 8.0 11/29/19 08:00 97.3 75 18 100/50 (67) 100 11/29/19 08:00 8.0 40 11/29/19 07:32 72 11/29/19 07:10 98 Venturi Mask 8.0 40 11/29/19 04:00 Venturi Mask 8.0 11/29/19 04:00 72 11/29/19 04:00 98.1 75 18 118/53 (74) 100 11/29/19 04:00 8.0 40 11/29/19 00:00 Venturi Mask 8.0 11/29/19 00:00 97.2 75 19 126/56 (79) 95 11/28/19 23:27 84 11/28/19 20:00 8.0 40 11/28/19 20:00 97.7 80 22 130/67 (88) 94 11/28/19 20:00 Venturi Mask 8.0 11/28/19 19:05 79 11/28/19 19:01 97 Venturi Mask 8.0 40 11/28/19 16:00 Venturi Mask 8.0 11/28/19 16:00 8.0 40 11/28/19 16:00 97.3 81 23 133/67 (89) 98 11/28/19 14:00 80 11/28/19 12:00 97.2 76 24 120/62 (81) 94 11/28/19 12:00 Nasal Cannula 4.0 11/28/19 12:00 4.0 11/28/19 12:00 77 Intake and Output 11/28/19 11/29/19 19:00 07:00 Intake Total 1406 ml 60 ml Balance 1406 ml 60 ml Intake Oral 1200 ml IV Total 166 ml 60 ml Other 40 ml # Bowel Movements 2 Laboratory Tests 11/28/19 16:00: Stool Occult Blood [Pending] 11/29/19 00:30: Urine Color Pale yellow, Urine Appearance Slightly cloudy, Urine pH 6, Urine Specific [place] 1.010, Urine Protein 4+H, Urine Glucose (UA) Negative, Urine Ketones Negative, Urine Blood 5+H, Urine Nitrite Negative, Urine Bilirubin Negative, Urine Urobilinogen Normal, Urine Leukocyte Esterase 3+H, Urine RBC TntcH, Urine WBC 10-15H, Urine Squamous Epithelial Cells None, Urine Bacteria ModerateH 11/29/19 03:33: White Blood Count 20.1H, Red Blood Count 3.63L, Hemoglobin 8.0L, Hematocrit 26.3L, Mean Corpuscular Volume 72L, Mean Corpuscular Hemoglobin 22.1L, Mean Corpuscular Hemoglobin Concent 30.4L, Red Cell Distribution Width 25.8H, Platelet Count 115L, Mean Platelet Volume 7.0, Neutrophils (%) (Auto) , Lymphocytes (%) (Auto) , Monocytes (%) (Auto) , Eosinophils (%) (Auto) , Basophils (%) (Auto) , Differential Total Cells Counted 100, Neutrophils % ( Manual) 82H, Lymphocytes % (Manual) 7L, Monocytes % (Manual) 9, Eosinophils % ( Manual) 2, Basophils % (Manual) 0, Band Neutrophils 0, Platelet Estimate DecreasedL, Platelet Morphology Normal, Polychromasia 1+, Hypochromasia 1+, Anisocytosis 3+, Microcytosis 1+, Sodium Level 143, Potassium Level 4.5, Chloride Level 103, Carbon Dioxide Level 30, Anion Gap 10, Blood Urea Nitrogen 67H, Creatinine 7.1H, Estimat Glomerular Filtration Rate 5.7, Glucose Level 97, Calcium Level 7.4L, Phosphorus Level 6.1H, Magnesium Level 2.4, Total Bilirubin 0.4, Gamma Glutamyl Transpeptidase 28, Aspartate Amino Transf (AST/SGOT) 31, Alanine Aminotransferase (ALT/SGPT) 26, Alkaline Phosphatase 118H, C-Reactive Protein, Quantitative 42.4H, Pro-B-Type Natriuretic Peptide 3108H, Total Protein 5.5L, Albumin 1.5L, Globulin 4.0, Albumin/Globulin Ratio 0.4L Height (Feet): 5 Height (Inches): 4.00 Weight (Pounds): 244 General Appearance: alert EENT: normal ENT inspection Neck: supple Cardiovascular: normal rate Respiratory/Chest: decreased breath sounds Abdomen: normal bowel sounds, non tender, soft Extremities: non-tender Ministerio Davis MD Nov 29, 2019 10:19
--- NOTE | 2019-11-29 11:08 | Pulmonology Progress Note ---
Carlita Brewster PERSONNEL MONITOR 11/29/19 1108: Subjective ROS Limited/Unobtainable: No Allergies: Coded Allergies: No Known Allergies (Unverified , 11/24/19) Subjective weaned down to O2 via NC less SOB, no CP afebrile, still with persistent leucocytosis s/p IVC filter 11/25 VQ scan -> intermediate probability for pulmonary embolism. afebrile, still persistent leucocytosis CTA chest no PE Objective Last 24 Hour Vital Signs Date Time Temp Pulse Resp B/P (MAP) Pulse Ox O2 Delivery O2 Flow Rate FiO2 11/29/19 08:00 Venturi Mask 8.0 11/29/19 08:00 97.3 75 18 100/50 (67) 100 11/29/19 08:00 8.0 40 11/29/19 07:32 72 11/29/19 07:10 98 Venturi Mask 8.0 40 11/29/19 04:00 Venturi Mask 8.0 11/29/19 04:00 72 11/29/19 04:00 98.1 75 18 118/53 (74) 100 11/29/19 04:00 8.0 40 11/29/19 00:00 Venturi Mask 8.0 11/29/19 00:00 97.2 75 19 126/56 (79) 95 11/28/19 23:27 84 11/28/19 20:00 8.0 40 11/28/19 20:00 97.7 80 22 130/67 (88) 94 11/28/19 20:00 Venturi Mask 8.0 11/28/19 19:05 79 11/28/19 19:01 97 Venturi Mask 8.0 40 11/28/19 16:00 Venturi Mask 8.0 11/28/19 16:00 8.0 40 11/28/19 16:00 97.3 81 23 133/67 (89) 98 11/28/19 14:00 80 11/28/19 12:00 97.2 76 24 120/62 (81) 94 11/28/19 12:00 Nasal Cannula 4.0 11/28/19 12:00 4.0 11/28/19 12:00 77 Intake and Output 11/28/19 11/29/19 19:00 07:00 Intake Total 1406 ml 60 ml Balance 1406 ml 60 ml Intake Oral 1200 ml IV Total 166 ml 60 ml Other 40 ml # Bowel Movements 2 Objective General Appearance: Setswana speaking, in NAD, calm, obese female Lines, tubes and drains: peripheral, also CL via R femoral ->HD catheter HEENT: normocephalic, atraumatic, anicteric, mucous membranes moist Neck: non-tender, supple Respiratory/Chest: no accessory muscle use, few crackles at bases Cardiovascular/Chest: normal peripheral pulses, normal rate, regular rhythm Abdomen: normal bowel sounds, soft - obese, non tender Extremities: normal range of motion, non-tender, no calf tenderness, +1 edema BLE Neurologic: no motor/sensory deficits, alert, responsive but somewhat confused Musculoskeletal: normal muscle bulk Microbiology Date/Time Source Procedure Growth Status 11/26/19 13:20 Indwelling Cath Urine Culture - Final NO GROWTH AFTER 48 HOURS Complete Laboratory Tests 11/28/19 16:00: Stool Occult Blood [Pending] 11/29/19 00:30: Urine Color Pale yellow, Urine Appearance Slightly cloudy, Urine pH 6, Urine Specific [place] 1.010, Urine Protein 4+H, Urine Glucose (UA) Negative, Urine Ketones Negative, Urine Blood 5+H, Urine Nitrite Negative, Urine Bilirubin Negative, Urine Urobilinogen Normal, Urine Leukocyte Esterase 3+H, Urine RBC TntcH, Urine WBC 10-15H, Urine Squamous Epithelial Cells None, Urine Bacteria ModerateH 11/29/19 03:33: White Blood Count 20.1H, Red Blood Count 3.63L, Hemoglobin 8.0L, Hematocrit 26.3L, Mean Corpuscular Volume 72L, Mean Corpuscular Hemoglobin 22.1L, Mean Corpuscular Hemoglobin Concent 30.4L, Red Cell Distribution Width 25.8H, Platelet Count 115L, Mean Platelet Volume 7.0, Neutrophils (%) (Auto) , Lymphocytes (%) (Auto) , Monocytes (%) (Auto) , Eosinophils (%) (Auto) , Basophils (%) (Auto) , Differential Total Cells Counted 100, Neutrophils % ( Manual) 82H, Lymphocytes % (Manual) 7L, Monocytes % (Manual) 9, Eosinophils % ( Manual) 2, Basophils % (Manual) 0, Band Neutrophils 0, Platelet Estimate DecreasedL, Platelet Morphology Normal, Polychromasia 1+, Hypochromasia 1+, Anisocytosis 3+, Microcytosis 1+, Sodium Level 143, Potassium Level 4.5, Chloride Level 103, Carbon Dioxide Level 30, Anion Gap 10, Blood Urea Nitrogen 67H, Creatinine 7.1H, Estimat Glomerular Filtration Rate 5.7, Glucose Level 97, Calcium Level 7.4L, Phosphorus Level 6.1H, Magnesium Level 2.4, Total Bilirubin 0.4, Gamma Glutamyl Transpeptidase 28, Aspartate Amino Transf (AST/SGOT) 31, Alanine Aminotransferase (ALT/SGPT) 26, Alkaline Phosphatase 118H, C-Reactive Protein, Quantitative 42.4H, Pro-B-Type Natriuretic Peptide 3108H, Total Protein 5.5L, Albumin 1.5L, Globulin 4.0, Albumin/Globulin Ratio 0.4L Current Medications Medications (Trade) Dose Ordered Sig/Brina Route PRN Reason Start Time Stop Time Status Last Admin Dose Admin Acetaminophen (Tylenol) 650 mg Q8H PRN NG Mild Pain (Pain Scale 1-3) 11/27/19 08:30 12/27/19 08:29 Acetaminophen/ Hydrocodone Bitart ([place] 10/325) 1 tab Q8H PRN ORAL Severe Pain (Pain Scale 7-10) 11/27/19 08:30 12/04/19 08:29 Acetaminophen/ Hydrocodone Bitart ([place] 5/325) 1 tab Q8H PRN ORAL Moderate Pain (Pain Scale 4-6) 11/27/19 08:30 12/04/19 08:29 Albuterol/ Ipratropium (Albuterol/ Ipratropium) 3 ml Q4H PRN HHN Shortness of Breath 11/25/19 18:30 11/29/19 18:29 Albuterol/ Ipratropium (Albuterol/ Ipratropium) 3 ml Q4H PRN HHN sob 11/25/19 19:00 11/30/19 18:59 11/27/19 13:52 Barium Sulfate (Varibar Honey) 250 ml NOW PRN Radiology Procedure 11/27/19 16:00 11/30/19 15:57 Barium Sulfate (Varibar [place]) 230 ml NOW PRN Radiology Procedure 11/27/19 16:00 11/30/19 15:57 Barium Sulfate (Varibar Pudding) 230 ml NOW PRN Radiology Procedure 11/27/19 16:00 11/30/19 15:57 Chlorhexidine Gluconate (Shonna-Hex 2%) 1 applic DAILY@2000 TOPIC 11/26/19 20:00 02/24/20 19:59 11/28/19 20:59 Docusate Sodium (Colace) 100 mg THREE TIMES A DAY ORAL 11/28/19 18:00 12/28/19 17:59 11/29/19 08:43 Epoetin Zay (Epoetin Zay(ESRD on dialysis)) 10,000 unit SUBQ 11/26/19 21:00 02/24/20 20:59 11/28/19 20:57 Iron Sucrose 100 mg/Sodium Chloride 60 ml @ 240 mls/hr BEDTIME IV 11/25/19 21:00 11/29/19 21:14 11/28/19 20:57 Linezolid (Zyvox) 600 mg EVERY 12 HOURS ORAL 11/26/19 12:00 12/05/19 23:59 11/29/19 08:43 Lorazepam (Ativan 2mg/ml 1ml) 1 mg Q4H PRN IV For Anxiety 11/25/19 18:45 12/02/19 10:44 Morphine Sulfate (Morphine Sulfate) 1 mg Q8H PRN IVP For Pain 11/25/19 18:30 12/02/19 18:29 Pantoprazole (Protonix) 40 mg EVERY 12 HOURS ORAL 11/28/19 21:00 12/28/19 20:59 11/29/19 08:43 Piperacillin Sod/ Tazobactam Sod 2.25 gm/Dextrose 55 ml @ 110 mls/hr Q8HR@0200,1000,1800 IV 11/26/19 02:00 12/01/19 09:59 11/29/19 10:03 Polyethylene Glycol (Miralax) 17 gm BEDTIME ORAL 11/27/19 21:00 12/27/19 20:59 11/28/19 20:59 Sevelamer Carbonate (Renvela) 1,600 mg THREE TIMES A DAY ORAL 11/28/19 18:00 02/26/20 17:59 11/29/19 08:43 Thiamine HCl (Vitamin B1) 100 mg DAILY ORAL 11/29/19 09:00 12/29/19 08:59 11/29/19 08:43 Assessment/Plan Assessment/Plan ASSESSMENT Sepsis Acute hypoxemic respiratory failure - Acute toxic metabolic encephalopathy ( multifactorial due to ARF, sepsis)- improving Acute renal failure , requiring start of HD MRSA PNA Acute DVT LLE common femoral to proximal superficial veins , r/o PE Possible UTI Hyperkalemia Severe pulmonary HTN Anemia Elevated lipase, possible pancreatitis Pelvic LAD Anasarca History of EtOH abuse Possible psychiatric disorder PLAN OF CARE LEOBARDO supplemental O2 titrate to keep sat above 92%, resp status improved after HD, now on O2 via NC fup with CXR pulm toilet SCX + MRSA hx of recent resp illness empiric abx per ID recs-> Zosyn , Zyvox persistent leukocytosis, no fevers CTA chest with evidence of PNA initial SOB and resp distress were most likely due to fluid overload 2 to acute renal failure, and now acute DVT , r/o PE Venous Duplex BLE + acute DVT LEFT COMMON FEMORAL TO PROXIMAL SUPERFICIAL FEMORAL VEINs. unable to start a/coagulation given Hgb 7.3 stat VQ scan 11/25 with intermediate probability for pulmonary embolism. s/p IVC filter 11/25 CTA chest -> no PE + BL infiltrates and RLL consolidation +mediastinal adenopathy aspir precautions VSS pending s/p 2 u PRBC monitor HH with goal to keep Hg above 7,s/p 2 u PRBC 11/23, on EPO and IV iron anemia w/up stool OB pending rapid COVID 19 11/23 x 2 - NGT rapid COVID 19 11/24 NGT BCX 11/23 NGTD ? UTI UCX 11/25 NGT SCX 11/25 + MRSA further management of ARF and hyper K as per general studies program chair - bicarb stabilized s/p HD via R fem temp HD catheter, placed by surgeon creat trending down monitor volumes permanent HD catheter placement pending ECHO with pEF 65% and RVSP of 58 c/w severe pulm HTN cardiac monitoring-SR lipase trended down to normal hep panel pending HIV nonreactive abd US, given enlarged lymph nodes-> fatty liver with a small septated cyst. Gallstones. The spleen, left kidney, CBD, pancreas ,aorta and cava not well defined. lipase and AST trending down CT head -no acute IC patholgoy pelvic US noted probably can be downgraded-> per cardio recs thank you for consult Reece Peters MD 11/29/198: Subjective Allergies: Coded Allergies: No Known Allergies (Unverified , 11/24/19) Assessment/Plan Assessment/Plan Patient seen and examined with PERSONNEL MONITOR. Agree with above A&P as it reflects our joint deliberations. Carlita Brewster NP Nov 29, 2019 11:08 Reece Peters MD Nov 29, 2019 21:08
[2019-11-29 12:00] VITALS: BP 102/62
--- NOTE | 2019-11-29 12:30 | Hematology/Onc Progress Note ---
Assessment/Plan Assessment/Plan Assessment and Recs # Left LE DVT and Probable PE s/p 11/25 IVC filter placement --> v/q scan: Overall findings suggesting intermediate probability for pulmonary embolism. More sensitive evaluation can be made with CT angiogram of the chest as clinically indicated. --> v. duplex: STUDY POSITIVE FOR DVT IN THE LEFT COMMON FEMORAL TO PROXIMAL SUPERFICIAL FEMORAL VEIN. LEFT COMMON FEMORAL TO PROXIMAL SUPERFICIAL FEMORAL --> unable to start anticoag given severe anemia, etoh use --> outpatient followup # Anemia of chronic disease due to underlying chronic medical issues, multifactorial v Gi bleed --> Anemia workup has been ordered, rule out gi bleed --> No evidence of hemolysis is noted, peripheral smear has been reviewed. --> Hgb goal >7. Transfuse prn. --> Epogen or iron both have been started for esrd --> Medications have been reviewed --> low threshold for gi evaluation in case has occult + --> recommend etoh cessation --> hgb 8.3-->8-->7.9->8 # Leukocytosis due to sepsis uti and cap -> abx as per id zosyn --> wbc 31-->24-->23-->16 --> imaging as needed # Acute respiratory failure with hypoxia --> on bipap # ESRD --> per renal on hd # Sepsis with bilateral pna # CAP (community acquired pneumonia) # Hyperkalemia # Encephalopathy acute # Morbid obesity # History of EtOH abuse # Possible psychiatric disorder # Dvt ppx scds The timing of this note does not necessarily reflect the time of the patient was seen. Greatly appreciate consultation. Subjective HEENT: Denies: no symptoms, eye pain, blurred vision, tearing, double vision, ear pain, ear discharge, nose pain, nose congestion, throat pain, throat swelling, mouth pain, mouth swelling, other Cardiovascular: Denies: no symptoms, chest pain, edema, irregular heart rate, lightheadedness, palpitations, syncope, other Respiratory: Denies: no symptoms, cough, shortness of breath, SOB with excertion, SOB at rest, sputum, wheezing, other Gastrointestinal/Abdominal: Denies: no symptoms, abdomen distended, abdominal pain, black stools, tarry stools, blood in stool, constipated, diarrhea, difficulty swallowing, nausea, poor appetite, poor fluid intake, rectal bleeding , vomiting, other Genitourinary: Denies: no symptoms, burning, discharge, frequency, flank pain, hematuria, incontinence, pain, urgency, other Endocrine: Denies: no symptoms, excessive sweating, flushing, intolerance to cold, intolerance to heat, increased hunger, increased thirst, increased urine, unexplained weight gain, unexplained weight loss, other Hematologic/Lymphatic: Denies: no symptoms, anemia, easy bleeding, easy bruising, adenopathy, other Allergies: Coded Allergies: No Known Allergies (Unverified , 11/24/19) Subjective 11/27 more arousable on venturi mask, started on iv iron, plt lower 11/28 meds noted, no bleeding, dw rn, on venturi mask, labs noted Objective Objective Current Medications Medications (Trade) Dose Ordered Sig/Brina Route PRN Reason Start Time Stop Time Status Last Admin Dose Admin Acetaminophen (Tylenol) 650 mg Q8H PRN NG Mild Pain (Pain Scale 1-3) 11/27/19 08:30 12/27/19 08:29 Acetaminophen/ Hydrocodone Bitart ([place] 10/325) 1 tab Q8H PRN ORAL Severe Pain (Pain Scale 7-10) 11/27/19 08:30 12/04/19 08:29 Acetaminophen/ Hydrocodone Bitart ([place] 5/325) 1 tab Q8H PRN ORAL Moderate Pain (Pain Scale 4-6) 11/27/19 08:30 12/04/19 08:29 Albuterol/ Ipratropium (Albuterol/ Ipratropium) 3 ml Q4H PRN HHN Shortness of Breath 11/25/19 18:30 11/29/19 18:29 Albuterol/ Ipratropium (Albuterol/ Ipratropium) 3 ml Q4H PRN HHN sob 11/25/19 19:00 11/30/19 18:59 11/27/19 13:52 Barium Sulfate (Varibar [place]) 250 ml NOW PRN Radiology Procedure 11/27/19 16:00 11/30/19 15:57 Barium Sulfate (Varibar [place]) 230 ml NOW PRN Radiology Procedure 11/27/19 16:00 11/30/19 15:57 Barium Sulfate (Varibar Pudding) 230 ml NOW PRN Radiology Procedure 11/27/19 16:00 11/30/19 15:57 Chlorhexidine Gluconate (Shonna-Hex 2%) 1 applic DAILY@2000 TOPIC 11/26/19 20:00 02/24/20 19:59 11/28/19 20:59 Docusate Sodium (Colace) 100 mg THREE TIMES A DAY ORAL 11/28/19 18:00 12/28/19 17:59 11/29/19 08:43 Epoetin Zay (Epoetin Zay(ESRD on dialysis)) 10,000 unit TUE- SUBQ 11/26/19 21:00 02/24/20 20:59 11/28/19 20:57 Iron Sucrose 100 mg/Sodium Chloride 60 ml @ 240 mls/hr BEDTIME IV 11/25/19 21:00 11/29/19 21:14 11/28/19 20:57 Linezolid (Zyvox) 600 mg EVERY 12 HOURS ORAL 11/26/19 12:00 12/05/19 23:59 11/29/19 08:43 Lorazepam (Ativan 2mg/ml 1ml) 1 mg Q4H PRN IV For Anxiety 11/25/19 18:45 12/02/19 10:44 Morphine Sulfate (Morphine Sulfate) 1 mg Q8H PRN IVP For Pain 11/25/19 18:30 12/02/19 18:29 Pantoprazole (Protonix) 40 mg EVERY 12 HOURS ORAL 11/28/19 21:00 12/28/19 20:59 11/29/19 08:43 Piperacillin Sod/ Tazobactam Sod 2.25 gm/Dextrose 55 ml @ 110 mls/hr Q8HR@0200,1000,1800 IV 11/26/19 02:00 12/01/19 09:59 11/29/19 10:03 Polyethylene Glycol (Miralax) 17 gm BEDTIME ORAL 11/27/19 21:00 12/27/19 20:59 11/28/19 20:59 Sevelamer Carbonate (Renvela) 1,600 mg THREE TIMES A DAY ORAL 11/28/19 18:00 02/26/20 17:59 11/29/19 08:43 Thiamine HCl (Vitamin B1) 100 mg DAILY ORAL 11/29/19 09:00 12/29/19 08:59 11/29/19 08:43 Last 24 Hour Vital Signs Date Time Temp Pulse Resp B/P (MAP) Pulse Ox O2 Delivery O2 Flow Rate FiO2 11/29/19 08:00 Venturi Mask 8.0 11/29/19 08:00 97.3 75 18 100/50 (67) 100 11/29/19 08:00 8.0 40 11/29/19 07:32 72 11/29/19 07:10 98 Venturi Mask 8.0 40 11/29/19 04:00 Venturi Mask 8.0 11/29/19 04:00 72 11/29/19 04:00 98.1 75 18 118/53 (74) 100 11/29/19 04:00 8.0 40 11/29/19 00:00 Venturi Mask 8.0 11/29/19 00:00 97.2 75 19 126/56 (79) 95 11/28/19 23:27 84 11/28/19 20:00 8.0 40 11/28/19 20:00 97.7 80 22 130/67 (88) 94 11/28/19 20:00 Venturi Mask 8.0 11/28/19 19:05 79 11/28/19 19:01 97 Venturi Mask 8.0 40 11/28/19 16:00 Venturi Mask 8.0 11/28/19 16:00 8.0 40 11/28/19 16:00 97.3 81 23 133/67 (89) 98 11/28/19 14:00 80 11/28/19 12:00 97.2 76 24 120/62 (81) 94 11/28/19 12:00 Nasal Cannula 4.0 11/28/19 12:00 4.0 11/28/19 12:00 77 11/28/19 08:00 8.0 35 11/28/19 08:00 71 11/28/19 08:00 97.4 70 19 107/54 (71) 99 11/28/19 08:00 Venturi Mask 8.0 11/28/19 07:00 98 Venturi Mask 8.0 40 11/28/19 04:00 Venturi Mask 8.0 11/28/19 04:00 97.7 71 21 106/57 (73) 98 11/28/19 04:00 71 11/28/19 04:00 8.0 40 11/28/19 00:00 97.7 75 20 110/63 (79) 95 11/28/19 00:00 70 11/28/19 00:00 Venturi Mask 8.0 11/27/19 20:00 97.7 72 27 113/57 (75) 99 11/27/19 20:00 Venturi Mask 8.0 11/27/19 20:00 72 11/27/19 20:00 8.0 40 11/27/19 19:07 97 Venturi Mask 8.0 40 11/27/19 16:00 97.7 71 29 119/48 (71) 98 11/27/19 16:00 Venturi Mask 8.0 11/27/19 16:00 79 11/27/19 16:00 8.0 40 11/27/19 13:52 66 20 100 Venturi Mask 8.0 40 70 20 99 Intake and Output 11/28/19 11/29/19 19:00 07:00 Intake Total 1406 ml 60 ml Balance 1406 ml 60 ml Intake Oral 1200 ml IV Total 166 ml 60 ml Other 40 ml # Bowel Movements 2 Labs Test 11/27/19 04:00 11/27/19 13:27 11/28/19 02:00 11/28/19 03:55 White Blood Count 22.7 K/UL (4.8-10.8) 20.7 K/UL (4.8-10.8) Red Blood Count 3.62 M/UL (4.20-5.40) 3.55 M/UL (4.20-5.40) Hemoglobin 8.0 G/DL (12.0-16.0) 7.9 G/DL (12.0-16.0) Hematocrit 25.5 % (37.0-47.0) 25.5 % (37.0-47.0) Mean Corpuscular Volume 71 FL (80-99) 72 FL (80-99) Mean Corpuscular Hemoglobin 22.2 PG (27.0-31.0) 22.1 PG (27.0-31.0) Mean Corpuscular Hemoglobin Concent 31.4 G/DL (32.0-36.0) 30.8 G/DL (32.0-36.0) Red Cell Distribution Width 24.1 % (11.6-14.8) 24.7 % (11.6-14.8) Platelet Count 151 K/UL (150-450) 124 K/UL (150-450) Mean Platelet Volume 5.7 FL (6.5-10.1) 6.1 FL (6.5-10.1) Neutrophils (%) (Auto) % (45.0-75.0) % (45.0-75.0) Lymphocytes (%) (Auto) % (20.0-45.0) % (20.0-45.0) Monocytes (%) (Auto) % (1.0-10.0) % (1.0-10.0) Eosinophils (%) (Auto) % (0.0-3.0) % (0.0-3.0) Basophils (%) (Auto) % (0.0-2.0) % (0.0-2.0) Differential Total Cells Counted 100 100 Neutrophils % (Manual) 87 % (45-75) 86 % (45-75) Lymphocytes % (Manual) 6 % (20-45) 7 % (20-45) Monocytes % (Manual) 7 % (1-10) 7 % (1-10) Eosinophils % (Manual) 0 % (0-3) 0 % (0-3) Basophils % (Manual) 0 % (0-2) 0 % (0-2) Band Neutrophils 0 % (0-8) 0 % (0-8) Platelet Estimate Adequate Decreased Platelet Morphology Normal Normal Anisocytosis 1+ 4+ Sodium Level 141 MMOL/L (136-145) 145 MMOL/L (136-145) Potassium Level 4.2 MMOL/L (3.5-5.1) 4.3 MMOL/L (3.5-5.1) Chloride Level 102 MMOL/L (98-107) 104 MMOL/L (98-107) Carbon Dioxide Level 30 MMOL/L (21-32) 31 MMOL/L (21-32) Anion Gap 9 mmol/L (5-15) 10 mmol/L (5-15) Blood Urea Nitrogen 76 mg/dL (7-18) 54 mg/dL (7-18) Creatinine 7.8 MG/DL (0.55-1.30) 6.4 MG/DL (0.55-1.30) Estimat Glomerular Filtration Rate 5.1 mL/min (>60) 6.5 mL/min (>60) Glucose Level 154 MG/DL (74-106) 126 MG/DL (74-106) Lactic Acid Level 1.80 mmol/L (0.4-2.0) Calcium Level 7.6 MG/DL (8.5-10.1) 7.7 MG/DL (8.5-10.1) Total Bilirubin 0.4 MG/DL (0.2-1.0) 0.4 MG/DL (0.2-1.0) Aspartate Amino Transf (AST/SGOT) 36 U/L (15-37) 35 U/L (15-37) Alanine Aminotransferase (ALT/SGPT) 24 U/L (12-78) 20 U/L (12-78) Alkaline Phosphatase 136 U/L (46-116) 119 U/L (46-116) Ammonia 32 umol/L (11-32) Lactate Dehydrogenase 422 U/L (81-234) Total Protein 5.5 G/DL (6.4-8.2) 5.3 G/DL (6.4-8.2) Albumin 1.6 G/DL (3.4-5.0) 1.5 G/DL (3.4-5.0) Globulin 3.9 g/dL Albumin/Globulin Ratio 0.4 (1.0-2.7) Amylase Level 69 U/L (25-115) Lipase 478 U/L (73-393) 246 U/L (73-393) HIV (1&2) Antibody Rapid Negative (NEGATIVE) Stool Occult Blood Negative (NEGATIVE) Negative (NEGATIVE) Hypochromasia 3+ Microcytosis 2+ Prothrombin Time 13.0 SEC (9.30-11.50) Prothromb Time International Ratio 1.2 (0.9-1.1) Phosphorus Level 6.2 MG/DL (2.5-4.9) Direct Bilirubin 0.1 MG/DL (0.0-0.3) Test 11/28/19 16:00 11/29/19 00:30 11/29/19 03:33 Stool Occult Blood Negative (NEGATIVE) Urine Color Pale yellow Urine Appearance Slightly cloudy Urine pH 6 (4.5-8.0) Urine Specific [place] 1.010 (1.005-1.035) Urine Protein 4+ (NEGATIVE) Urine Glucose (UA) Negative (NEGATIVE) Urine Ketones Negative (NEGATIVE) Urine Blood 5+ (NEGATIVE) Urine Nitrite Negative (NEGATIVE) Urine Bilirubin Negative (NEGATIVE) Urine Urobilinogen Normal MG/DL (0.0-1.0) Urine Leukocyte Esterase 3+ (NEGATIVE) Urine RBC Tntc /HPF (0 - 2) Urine WBC 10-15 /HPF (0 - 2) Urine Squamous Epithelial Cells None /LPF (NONE/OCC) Urine Bacteria Moderate /HPF (NONE) White Blood Count 20.1 K/UL (4.8-10.8) Red Blood Count 3.63 M/UL (4.20-5.40) Hemoglobin 8.0 G/DL (12.0-16.0) Hematocrit 26.3 % (37.0-47.0) Mean Corpuscular Volume 72 FL (80-99) Mean Corpuscular Hemoglobin 22.1 PG (27.0-31.0) Mean Corpuscular Hemoglobin Concent 30.4 G/DL (32.0-36.0) Red Cell Distribution Width 25.8 % (11.6-14.8) Platelet Count 115 K/UL (150-450) Mean Platelet Volume 7.0 FL (6.5-10.1) Neutrophils (%) (Auto) % (45.0-75.0) Lymphocytes (%) (Auto) % (20.0-45.0) Monocytes (%) (Auto) % (1.0-10.0) Eosinophils (%) (Auto) % (0.0-3.0) Basophils (%) (Auto) % (0.0-2.0) Differential Total Cells Counted 100 Neutrophils % (Manual) 82 % (45-75) Lymphocytes % (Manual) 7 % (20-45) Monocytes % (Manual) 9 % (1-10) Eosinophils % (Manual) 2 % (0-3) Basophils % (Manual) 0 % (0-2) Band Neutrophils 0 % (0-8) Platelet Estimate Decreased Platelet Morphology Normal Polychromasia 1+ Hypochromasia 1+ Anisocytosis 3+ Microcytosis 1+ Sodium Level 143 MMOL/L (136-145) Potassium Level 4.5 MMOL/L (3.5-5.1) Chloride Level 103 MMOL/L (98-107) Carbon Dioxide Level 30 MMOL/L (21-32) Anion Gap 10 mmol/L (5-15) Blood Urea Nitrogen 67 mg/dL (7-18) Creatinine 7.1 MG/DL (0.55-1.30) Estimat Glomerular Filtration Rate 5.7 mL/min (>60) Glucose Level 97 MG/DL (74-106) Calcium Level 7.4 MG/DL (8.5-10.1) Phosphorus Level 6.1 MG/DL (2.5-4.9) Magnesium Level 2.4 MG/DL (1.8-2.4) Total Bilirubin 0.4 MG/DL (0.2-1.0) Gamma Glutamyl Transpeptidase 28 U/L (5-85) Aspartate Amino Transf (AST/SGOT) 31 U/L (15-37) Alanine Aminotransferase (ALT/SGPT) 26 U/L (12-78) Alkaline Phosphatase 118 U/L (46-116) C-Reactive Protein, Quantitative 42.4 mg/dL (0.00-0.90) Pro-B-Type Natriuretic Peptide 3108 pg/mL (0-125) Total Protein 5.5 G/DL (6.4-8.2) Albumin 1.5 G/DL (3.4-5.0) Globulin 4.0 g/dL Albumin/Globulin Ratio 0.4 (1.0-2.7) Height (Feet): 5 Height (Inches): 4.00 Weight (Pounds): 244 Objective Vitals: reviewed General: NAD HEENT: nc, at Neck: supple Chest: clear breath sounds bilaterally Cardiovascular: RRR, no s3, s4 Abdomen: soft, nontender, nd Extremities: no cce, normal range of motion Neuro: alert and oriented Holland Miranda MD Nov 29, 2019 12:30
[2019-11-29 12:34] LABS: HEMATOCRIT 20.2 % (37.0-47.0); MEAN CORPUSCULAR VOLUME 73 FL (80-99); PLATELET COUNT 113 K/UL (150-450); RED BLOOD COUNT 2.78 M/UL (4.20-5.40)
[2019-11-29] MEDS: HYDROcodone/Acetamin 10/325 tab ORAL PRN ×2 (12:47→21:46)
[2019-11-29 12:48] LABS: HEMOGLOBIN 6.2 G/DL (12.0-16.0)
--- NOTE | 2019-11-29 12:50 | Infectious Diseases Prog Note ---
Assessment/Plan ASSESSMENT: The patient is a 69-year-old female with: 1. Respiratory distress.- SP Bipap- sp NC> VM 40%, 8L 11/26> 4l NC 11/27> VM 40% 8L 11/28 2. B/l Pneumonia- COVID neg x3 -11/24 sp cx MRSA -11/23 Rapid COVID PCR neg x2; 11/24 rapid COVID PCR neg -11/23 CT chest: Bilateral pneumonia, with greater confluence in the posterior right lower lobe. 3. SEvere Leukocytosis, acute reacted to distress versus sepsis. -on the high 20s-30s -likely multifactorial due to PE/DVT, PNA, pancreaitis, acute renal failure -pelvic US: LIMITED TRANSABDOMINAL STUDY ONLY WITH RELATIVELY POOR DELINEATION OF THE REPRODUCTIVE ORGANS. HETEROGENEOUS UTERUS WITH APPARENT FIBROID CHANGE. RIGHT OVARY NOT VISUALIZED AND ENDOMETRIAL STRIPE ALSO POORLY SEEN LEFT OVARY IS ONLY MARGINALLY SEEN AND GROSSLY UNREMARKABLE. -Abd US: STUDY LIMITED DUE TO BODY HABITUS AND BOWEL GAS. FATTY LIVER WITH A SMALL SEPTATED CYST. GALLSTONES.THE SPLEEN, LEFT KIDNEY, COMMON BILE DUCT AND PANCREAS WELL AORTA AND CAVA ARE NOT WELL DEFINED. -CT abd/p : Enlarged pelvic lymph nodes could reflect reactive changes from cellulitis in the setting of generalized bony wall edema, or other acute inflammatory changes but neoplasm such as lymphomas not excluded. Correlate clinically. Ultrasound of the pelvis could be considered to help distinguish patient's ovaries from presumed pelvic adenopathy.Mild bilateral hydronephrosis , with a Kaminski catheter in the urinary bladder. Correlate with bladder catheter function. 4. Sepsis. 5.r/o Probable UTI. -11/28 u/a wbc 10-15, nit neg, leuk +3 -11/25 ucx Neg 6. Rule out probable bacteremia. -11/23 BCx Neg 7. L LE DVT and Probable PE -CTA chest: NO CT EVIDENCE OF PULMONARY EMBOLISM TO THE EXTENT VISUALIZED.BILATERAL INFILTRATES AND RIGHT LOWER LOBE CONSOLIDATION. THE CONSOLIDATION DOESOBSCURE SOME PERIPHERAL SUBSEGMENTAL BRANCHES OF THE RIGHT LOWER LOBE AND SMALLPERIPHERAL EMBOLI IN THIS AREA CANNOT BE EXCLUDED.MEDIASTINAL ADENOPATHY.ANASARCA. -11/25 SP IVC filter placement -v/q scan: Overall findings suggesting intermediate probability for pulmonary embolism. More sensitive evaluation can be made with CT angiogram of the chest as clinically indicated. -v. duplex: STUDY POSITIVE FOR DVT IN THE LEFT COMMON FEMORAL TO PROXIMAL SUPERFICIAL FEMORAL VEIN. 8. Severe acute renal failure; improving- likely underlying CKD -on HD now 9. Acute pancreatitis EtOh abuse PLAN: 1. Dc IV Zosyn #6/5 (empiric) ZYvox #4/7-10 for MRSA; monitor platelets -11/23 SP CEftriaxone x1, Azythromycin x1, IV Vancomycin x1 2. Monitor blood culture. 3. Monitor urine culture. 4. COVID neg x3 (2 were sent on same day) 5. Monitor lipase. 6. f/u flow cytometry 7. If remains afebrile, WBC stable or improved, can proceed with perma cath insertion tomorrow. Discussed with RN, Dr Schroeder and Dr Garcia Subjective Allergies: Coded Allergies: No Known Allergies (Unverified , 11/24/19) afebrile on VM 8L, 40% wbc improved but remains on the 20s Bcx Neg Objective Last 24 Hour Vital Signs Date Time Temp Pulse Resp B/P (MAP) Pulse Ox O2 Delivery O2 Flow Rate FiO2 11/29/19 08:00 Venturi Mask 8.0 11/29/19 08:00 97.3 75 18 100/50 (67) 100 11/29/19 08:00 8.0 40 11/29/19 07:32 72 11/29/19 07:10 98 Venturi Mask 8.0 40 11/29/19 04:00 Venturi Mask 8.0 11/29/19 04:00 72 11/29/19 04:00 98.1 75 18 118/53 (74) 100 11/29/19 04:00 8.0 40 11/29/19 00:00 Venturi Mask 8.0 11/29/19 00:00 97.2 75 19 126/56 (79) 95 11/28/19 23:27 84 11/28/19 20:00 8.0 40 11/28/19 20:00 97.7 80 22 130/67 (88) 94 11/28/19 20:00 Venturi Mask 8.0 11/28/19 19:05 79 11/28/19 19:01 97 Venturi Mask 8.0 40 11/28/19 16:00 Venturi Mask 8.0 11/28/19 16:00 8.0 40 11/28/19 16:00 97.3 81 23 133/67 (89) 98 11/28/19 14:00 80 Height (Feet): 5 Height (Inches): 4.00 Weight (Pounds): 244 HEENT: No pale conjunctivae. No icterus. NECK: No lymphadenopathy. CHEST: Coarse breathing sounds. HEART: S1-S2. ABDOMEN: Obese. EXTREMITIES: No cyanosis at this time. NEUROLOGIC: Awake. Microbiology Date/Time Source Procedure Growth Status 11/26/19 13:20 Indwelling Cath Urine Culture - Final NO GROWTH AFTER 48 HOURS Complete Laboratory Tests Test 11/28/19 16:00 11/29/19 00:30 11/29/19 03:33 11/29/19 12:25 Stool Occult Blood Negative (NEGATIVE) Urine Color Pale yellow Urine Appearance Slightly cloudy Urine pH 6 (4.5-8.0) Urine Specific [place] 1.010 (1.005-1.035) Urine Protein 4+ (NEGATIVE) H Urine Glucose (UA) Negative (NEGATIVE) Urine Ketones Negative (NEGATIVE) Urine Blood 5+ (NEGATIVE) H Urine Nitrite Negative (NEGATIVE) Urine Bilirubin Negative (NEGATIVE) Urine Urobilinogen Normal MG/DL (0.0-1.0) Urine Leukocyte Esterase 3+ (NEGATIVE) H Urine RBC Tntc /HPF (0 - 2) H Urine WBC 10-15 /HPF (0 - 2) H Urine Squamous Epithelial Cells None /LPF (NONE/OCC) Urine Bacteria Moderate /HPF (NONE) H White Blood Count 20.1 K/UL (4.8-10.8) H Pending Red Blood Count 3.63 M/UL (4.20-5.40) L Pending Hemoglobin 8.0 G/DL (12.0-16.0) L Pending Hematocrit 26.3 % (37.0-47.0) L Pending Mean Corpuscular Volume 72 FL (80-99) L Pending Mean Corpuscular Hemoglobin 22.1 PG (27.0-31.0) L Pending Mean Corpuscular Hemoglobin Concent 30.4 G/DL (32.0-36.0) L Pending Red Cell Distribution Width 25.8 % (11.6-14.8) H Pending Platelet Count 115 K/UL (150-450) L Pending Mean Platelet Volume 7.0 FL (6.5-10.1) Pending Neutrophils (%) (Auto) % (45.0-75.0) Pending Lymphocytes (%) (Auto) % (20.0-45.0) Pending Monocytes (%) (Auto) % (1.0-10.0) Pending Eosinophils (%) (Auto) % (0.0-3.0) Pending Basophils (%) (Auto) % (0.0-2.0) Pending Differential Total Cells Counted 100 Neutrophils % (Manual) 82 % (45-75) H Lymphocytes % (Manual) 7 % (20-45) L Monocytes % (Manual) 9 % (1-10) Eosinophils % (Manual) 2 % (0-3) Basophils % (Manual) 0 % (0-2) Band Neutrophils 0 % (0-8) Platelet Estimate Decreased L Platelet Morphology Normal Polychromasia 1+ Hypochromasia 1+ Anisocytosis 3+ Microcytosis 1+ Sodium Level 143 MMOL/L (136-145) Potassium Level 4.5 MMOL/L (3.5-5.1) Chloride Level 103 MMOL/L (98-107) Carbon Dioxide Level 30 MMOL/L (21-32) Anion Gap 10 mmol/L (5-15) Blood Urea Nitrogen 67 mg/dL (7-18) H Creatinine 7.1 MG/DL (0.55-1.30) H Estimat Glomerular Filtration Rate 5.7 mL/min (>60) Glucose Level 97 MG/DL (74-106) Calcium Level 7.4 MG/DL (8.5-10.1) L Phosphorus Level 6.1 MG/DL (2.5-4.9) H Magnesium Level 2.4 MG/DL (1.8-2.4) Total Bilirubin 0.4 MG/DL (0.2-1.0) Gamma Glutamyl Transpeptidase 28 U/L (5-85) Aspartate Amino Transf (AST/SGOT) 31 U/L (15-37) Alanine Aminotransferase (ALT/SGPT) 26 U/L (12-78) Alkaline Phosphatase 118 U/L (46-116) H C-Reactive Protein, Quantitative 42.4 mg/dL (0.00-0.90) H Pro-B-Type Natriuretic Peptide 3108 pg/mL (0-125) H Total Protein 5.5 G/DL (6.4-8.2) L Albumin 1.5 G/DL (3.4-5.0) L Globulin 4.0 g/dL Albumin/Globulin Ratio 0.4 (1.0-2.7) L Current Medications Medications (Trade) Dose Ordered Sig/Brina Route PRN Reason Start Time Stop Time Status Last Admin Dose Admin Acetaminophen (Tylenol) 650 mg Q8H PRN NG Mild Pain (Pain Scale 1-3) 11/27/19 08:30 12/27/19 08:29 Acetaminophen/ Hydrocodone Bitart (Secretary 10/325) 1 tab Q8H PRN ORAL Severe Pain (Pain Scale 7-10) 11/27/19 08:30 12/04/19 08:29 Acetaminophen/ Hydrocodone Bitart (Secretary 5/325) 1 tab Q8H PRN ORAL Moderate Pain (Pain Scale 4-6) 11/27/19 08:30 12/04/19 08:29 Albuterol/ Ipratropium (Albuterol/ Ipratropium) 3 ml Q4H PRN HHN Shortness of Breath 11/25/19 18:30 11/29/19 18:29 Albuterol/ Ipratropium (Albuterol/ Ipratropium) 3 ml Q4H PRN HHN sob 11/25/19 19:00 11/30/19 18:59 11/27/19 13:52 Barium Sulfate (Varibar Honey) 250 ml NOW PRN Radiology Procedure 11/27/19 16:00 11/30/19 15:57 Barium Sulfate (Varibar [place]) 230 ml NOW PRN Radiology Procedure 11/27/19 16:00 11/30/19 15:57 Barium Sulfate (Varibar Pudding) 230 ml NOW PRN Radiology Procedure 11/27/19 16:00 11/30/19 15:57 Chlorhexidine Gluconate (Shonna-Hex 2%) 1 applic DAILY@1999 TOPIC 11/26/19 20:00 02/24/20 19:59 11/28/19 20:59 Docusate Sodium (Colace) 100 mg THREE TIMES A DAY ORAL 11/28/19 18:00 12/28/19 17:59 11/29/19 08:43 Epoetin Zay (Epoetin Zay(ESRD on dialysis)) 10,000 unit TUE-TUE-TUE SUBQ 11/26/19 21:00 02/24/20 20:59 11/28/19 20:57 Iron Sucrose 100 mg/Sodium Chloride 60 ml @ 240 mls/hr BEDTIME IV 11/25/19 21:00 11/29/19 21:14 11/28/19 20:57 Linezolid (Zyvox) 600 mg EVERY 12 HOURS ORAL 11/26/19 12:00 12/05/19 23:59 11/29/19 08:43 Lorazepam (Ativan 2mg/ml 1ml) 1 mg Q4H PRN IV For Anxiety 11/25/19 18:45 12/02/19 10:44 Morphine Sulfate (Morphine Sulfate) 1 mg Q8H PRN IVP For Pain 11/25/19 18:30 12/02/19 18:29 Pantoprazole (Protonix) 40 mg EVERY 12 HOURS ORAL 11/28/19 21:00 12/28/19 20:59 11/29/19 08:43 Piperacillin Sod/ Tazobactam Sod 2.25 gm/Dextrose 55 ml @ 110 mls/hr Q8HR@0200,1000,1800 IV 11/26/19 02:00 12/01/19 09:59 11/29/19 10:03 Polyethylene Glycol (Miralax) 17 gm BEDTIME ORAL 11/27/19 21:00 12/27/19 20:59 11/28/19 20:59 Sevelamer Carbonate (Renvela) 1,600 mg THREE TIMES A DAY ORAL 11/28/19 18:00 02/26/20 17:59 11/29/19 08:43 Thiamine HCl (Vitamin B1) 100 mg DAILY ORAL 11/29/19 09:00 12/29/19 08:59 11/29/19 08:43 Britt Jimenez M.D. Nov 29, 2019 12:50
--- NOTE | 2019-11-29 13:14 | Cardiology Progress Note ---
Assessment/Plan Assessment/Plan 1. Acute diastolic congestive heart failure, aggressive hemodialysis for decrease of preload. 2. Hyperkalemia, resolved. 3. Alcohol abuse. 4. Acute kidney injury. 5. Dyslipidemia with low HDL. 6. CAP. Subjective Subjective Sinus rhythm at rate of 77. Venturi mask, FIO2 of 40%. Objective Last 24 Hour Vital Signs Date Time Temp Pulse Resp B/P (MAP) Pulse Ox O2 Delivery O2 Flow Rate FiO2 11/29/19 12:00 Venturi Mask 8.0 11/29/19 12:00 8.0 40 11/29/19 12:00 96.6 77 22 102/62 (75) 100 11/29/19 08:00 Venturi Mask 8.0 11/29/19 08:00 97.3 75 18 100/50 (67) 100 11/29/19 08:00 8.0 40 11/29/19 07:32 72 11/29/19 07:10 98 Venturi Mask 8.0 40 11/29/19 04:00 Venturi Mask 8.0 11/29/19 04:00 72 11/29/19 04:00 98.1 75 18 118/53 (74) 100 11/29/19 04:00 8.0 40 11/29/19 00:00 Venturi Mask 8.0 11/29/19 00:00 97.2 75 19 126/56 (79) 95 11/28/19 23:27 84 11/28/19 20:00 8.0 40 11/28/19 20:00 97.7 80 22 130/67 (88) 94 11/28/19 20:00 Venturi Mask 8.0 11/28/19 19:05 79 11/28/19 19:01 97 Venturi Mask 8.0 40 11/28/19 16:00 Venturi Mask 8.0 11/28/19 16:00 8.0 40 11/28/19 16:00 97.3 81 23 133/67 (89) 98 11/28/19 14:00 80 Intake and Output 11/28/19 11/29/19 19:00 07:00 Intake Total 1406 ml 60 ml Balance 1406 ml 60 ml Intake Oral 1200 ml IV Total 166 ml 60 ml Other 40 ml # Bowel Movements 2 2D Echo: LVEF 65%, RVSP 58 mmHg, Grade I LVDD Laboratory Tests Test 11/28/19 16:00 11/29/19 00:30 11/29/19 03:33 11/29/19 12:25 Stool Occult Blood Negative (NEGATIVE) Urine Color Pale yellow Urine Appearance Slightly cloudy Urine pH 6 (4.5-8.0) Urine Specific [place] 1.010 (1.005-1.035) Urine Protein 4+ (NEGATIVE) H Urine Glucose (UA) Negative (NEGATIVE) Urine Ketones Negative (NEGATIVE) Urine Blood 5+ (NEGATIVE) H Urine Nitrite Negative (NEGATIVE) Urine Bilirubin Negative (NEGATIVE) Urine Urobilinogen Normal MG/DL (0.0-1.0) Urine Leukocyte Esterase 3+ (NEGATIVE) H Urine RBC Tntc /HPF (0 - 2) H Urine WBC 10-15 /HPF (0 - 2) H Urine Squamous Epithelial Cells None /LPF (NONE/OCC) Urine Bacteria Moderate /HPF (NONE) H White Blood Count 20.1 K/UL (4.8-10.8) H 22.0 K/UL (4.8-10.8) H Red Blood Count 3.63 M/UL (4.20-5.40) L 2.78 M/UL (4.20-5.40) L Hemoglobin 8.0 G/DL (12.0-16.0) L 6.2 G/DL (12.0-16.0) *L Hematocrit 26.3 % (37.0-47.0) L 20.2 % (37.0-47.0) L Mean Corpuscular Volume 72 FL (80-99) L 73 FL (80-99) L Mean Corpuscular Hemoglobin 22.1 PG (27.0-31.0) L 22.4 PG (27.0-31.0) L Mean Corpuscular Hemoglobin Concent 30.4 G/DL (32.0-36.0) L 30.8 G/DL (32.0-36.0) L Red Cell Distribution Width 25.8 % (11.6-14.8) H 27.0 % (11.6-14.8) H Platelet Count 115 K/UL (150-450) L 113 K/UL (150-450) L Mean Platelet Volume 7.0 FL (6.5-10.1) 7.0 FL (6.5-10.1) Neutrophils (%) (Auto) % (45.0-75.0) % (45.0-75.0) Lymphocytes (%) (Auto) % (20.0-45.0) % (20.0-45.0) Monocytes (%) (Auto) % (1.0-10.0) % (1.0-10.0) Eosinophils (%) (Auto) % (0.0-3.0) % (0.0-3.0) Basophils (%) (Auto) % (0.0-2.0) % (0.0-2.0) Differential Total Cells Counted 100 Neutrophils % (Manual) 82 % (45-75) H Pending Lymphocytes % (Manual) 7 % (20-45) L Pending Monocytes % (Manual) 9 % (1-10) Eosinophils % (Manual) 2 % (0-3) Basophils % (Manual) 0 % (0-2) Band Neutrophils 0 % (0-8) Platelet Estimate Decreased L Pending Platelet Morphology Normal Pending Polychromasia 1+ Hypochromasia 1+ Anisocytosis 3+ Microcytosis 1+ Sodium Level 143 MMOL/L (136-145) Potassium Level 4.5 MMOL/L (3.5-5.1) Chloride Level 103 MMOL/L (98-107) Carbon Dioxide Level 30 MMOL/L (21-32) Anion Gap 10 mmol/L (5-15) Blood Urea Nitrogen 67 mg/dL (7-18) H Creatinine 7.1 MG/DL (0.55-1.30) H Estimat Glomerular Filtration Rate 5.7 mL/min (>60) Glucose Level 97 MG/DL (74-106) Calcium Level 7.4 MG/DL (8.5-10.1) L Phosphorus Level 6.1 MG/DL (2.5-4.9) H Magnesium Level 2.4 MG/DL (1.8-2.4) Total Bilirubin 0.4 MG/DL (0.2-1.0) Gamma Glutamyl Transpeptidase 28 U/L (5-85) Aspartate Amino Transf (AST/SGOT) 31 U/L (15-37) Alanine Aminotransferase (ALT/SGPT) 26 U/L (12-78) Alkaline Phosphatase 118 U/L (46-116) H C-Reactive Protein, Quantitative 42.4 mg/dL (0.00-0.90) H Pro-B-Type Natriuretic Peptide 3108 pg/mL (0-125) H Total Protein 5.5 G/DL (6.4-8.2) L Albumin 1.5 G/DL (3.4-5.0) L Globulin 4.0 g/dL Albumin/Globulin Ratio 0.4 (1.0-2.7) L Microbiology Date/Time Source Procedure Growth Status 11/26/19 13:20 Indwelling Cath Urine Culture - Final NO GROWTH AFTER 48 HOURS Complete Objective HEENT: Atraumatic, normocephalic. ENT, pupils are equal, round, and reactive to light and accommodation. Positive pallor. NECK: Cannot assess JVP due to obesity and short neck and current use of BiPAP mask. No carotid bruit. Carotid upstrokes 2+ bilaterally. CARDIOVASCULAR: Normal S1, S2. Regular rate and rhythm. No murmurs, gallops, or rubs. PMI is at fourth intercostal space in the midclavicular line. LUNGS: Bilateral crackles, mostly in the bases. ABDOMEN: Soft, nondistended. No hepatosplenomegaly. Positive bowel sounds. EXTREMITIES: No evidence of edema, clubbing, or cyanosis. Adryan Lopez MD Nov 29, 2019 13:14
--- NOTE | 2019-11-29 13:37 | Surgery Progress Note ---
Surgery Progress Note Subjective Procedure Performed right femoral temporary Hemodialysis catheter insertion Additional Comments Acute vaginal bleed identified today ensure not rectal ensure not urethral. Anemia transfuse per heme blood loss Objective Last 24 Hour Vital Signs Date Time Temp Pulse Resp B/P (MAP) Pulse Ox O2 Delivery O2 Flow Rate FiO2 11/29/19 12:00 Venturi Mask 8.0 11/29/19 12:00 8.0 40 11/29/19 12:00 96.6 77 22 102/62 (75) 100 11/29/19 08:00 Venturi Mask 8.0 11/29/19 08:00 97.3 75 18 100/50 (67) 100 11/29/19 08:00 8.0 40 11/29/19 07:32 72 11/29/19 07:10 98 Venturi Mask 8.0 40 11/29/19 04:00 Venturi Mask 8.0 11/29/19 04:00 72 11/29/19 04:00 98.1 75 18 118/53 (74) 100 11/29/19 04:00 8.0 40 11/29/19 00:00 Venturi Mask 8.0 11/29/19 00:00 97.2 75 19 126/56 (79) 95 11/28/19 23:27 84 11/28/19 20:00 8.0 40 11/28/19 20:00 97.7 80 22 130/67 (88) 94 11/28/19 20:00 Venturi Mask 8.0 11/28/19 19:05 79 11/28/19 19:01 97 Venturi Mask 8.0 40 11/28/19 16:00 Venturi Mask 8.0 11/28/19 16:00 8.0 40 11/28/19 16:00 97.3 81 23 133/67 (89) 98 11/28/19 14:00 80 I&O Intake and Output 11/28/19 11/29/19 19:00 07:00 Intake Total 1406 ml 60 ml Balance 1406 ml 60 ml Intake Oral 1200 ml IV Total 166 ml 60 ml Other 40 ml # Bowel Movements 2 Dressing: saturated Cardiovascular: RSR Respiratory: decreased breath sounds Abdomen: soft, non-tender, present bowel sounds Extremities: edema, no tenderness, no cyanosis Laboratory Tests Test 11/28/19 16:00 11/29/19 00:30 11/29/19 03:33 11/29/19 12:25 Stool Occult Blood Negative (NEGATIVE) Urine Color Pale yellow Urine Appearance Slightly cloudy Urine pH 6 (4.5-8.0) Urine Specific [place] 1.010 (1.005-1.035) Urine Protein 4+ (NEGATIVE) H Urine Glucose (UA) Negative (NEGATIVE) Urine Ketones Negative (NEGATIVE) Urine Blood 5+ (NEGATIVE) H Urine Nitrite Negative (NEGATIVE) Urine Bilirubin Negative (NEGATIVE) Urine Urobilinogen Normal MG/DL (0.0-1.0) Urine Leukocyte Esterase 3+ (NEGATIVE) H Urine RBC Tntc /HPF (0 - 2) H Urine WBC 10-15 /HPF (0 - 2) H Urine Squamous Epithelial Cells None /LPF (NONE/OCC) Urine Bacteria Moderate /HPF (NONE) H White Blood Count 20.1 K/UL (4.8-10.8) H 22.0 K/UL (4.8-10.8) H Red Blood Count 3.63 M/UL (4.20-5.40) L 2.78 M/UL (4.20-5.40) L Hemoglobin 8.0 G/DL (12.0-16.0) L 6.2 G/DL (12.0-16.0) *L Hematocrit 26.3 % (37.0-47.0) L 20.2 % (37.0-47.0) L Mean Corpuscular Volume 72 FL (80-99) L 73 FL (80-99) L Mean Corpuscular Hemoglobin 22.1 PG (27.0-31.0) L 22.4 PG (27.0-31.0) L Mean Corpuscular Hemoglobin Concent 30.4 G/DL (32.0-36.0) L 30.8 G/DL (32.0-36.0) L Red Cell Distribution Width 25.8 % (11.6-14.8) H 27.0 % (11.6-14.8) H Platelet Count 115 K/UL (150-450) L 113 K/UL (150-450) L Mean Platelet Volume 7.0 FL (6.5-10.1) 7.0 FL (6.5-10.1) Neutrophils (%) (Auto) % (45.0-75.0) % (45.0-75.0) Lymphocytes (%) (Auto) % (20.0-45.0) % (20.0-45.0) Monocytes (%) (Auto) % (1.0-10.0) % (1.0-10.0) Eosinophils (%) (Auto) % (0.0-3.0) % (0.0-3.0) Basophils (%) (Auto) % (0.0-2.0) % (0.0-2.0) Differential Total Cells Counted 100 100 Neutrophils % (Manual) 82 % (45-75) H 84 % (45-75) H Lymphocytes % (Manual) 7 % (20-45) L 6 % (20-45) L Monocytes % (Manual) 9 % (1-10) 8 % (1-10) Eosinophils % (Manual) 2 % (0-3) 2 % (0-3) Basophils % (Manual) 0 % (0-2) 0 % (0-2) Band Neutrophils 0 % (0-8) 0 % (0-8) Platelet Estimate Decreased L Decreased L Platelet Morphology Normal Normal Polychromasia 1+ 1+ Hypochromasia 1+ 2+ Anisocytosis 3+ 3+ Microcytosis 1+ 1+ Sodium Level 143 MMOL/L (136-145) Potassium Level 4.5 MMOL/L (3.5-5.1) Chloride Level 103 MMOL/L (98-107) Carbon Dioxide Level 30 MMOL/L (21-32) Anion Gap 10 mmol/L (5-15) Blood Urea Nitrogen 67 mg/dL (7-18) H Creatinine 7.1 MG/DL (0.55-1.30) H Estimat Glomerular Filtration Rate 5.7 mL/min (>60) Glucose Level 97 MG/DL (74-106) Calcium Level 7.4 MG/DL (8.5-10.1) L Phosphorus Level 6.1 MG/DL (2.5-4.9) H Magnesium Level 2.4 MG/DL (1.8-2.4) Total Bilirubin 0.4 MG/DL (0.2-1.0) Gamma Glutamyl Transpeptidase 28 U/L (5-85) Aspartate Amino Transf (AST/SGOT) 31 U/L (15-37) Alanine Aminotransferase (ALT/SGPT) 26 U/L (12-78) Alkaline Phosphatase 118 U/L (46-116) H C-Reactive Protein, Quantitative 42.4 mg/dL (0.00-0.90) H Pro-B-Type Natriuretic Peptide 3108 pg/mL (0-125) H Total Protein 5.5 G/DL (6.4-8.2) L Albumin 1.5 G/DL (3.4-5.0) L Globulin 4.0 g/dL Albumin/Globulin Ratio 0.4 (1.0-2.7) L Plan Problems: (1) Anemia (2) Encephalopathy acute (3) Acute respiratory failure with hypoxia (4) Hyperkalemia (5) Sepsis Assessment & Plan: Leukocytosis anemia hyperkalemia abnormal labs HD catheter placed received dialysis and slowly potassium improved. Plan for repeat dialysis ordered. IV antibiotics per infectious disease Patient is alert awake but confused. Slowly improving No hematoma or bleeding identified Site looks clean We will continue with HD on a sure if renal function will improve may need permacath CT reviewed edema noted lymph nodes noted likely reactive Thank you for let me participate patient's care with follow with recommendations s/p filter placement stable acute blood loss anemia vaginal bleeding coags heme input thank you ABDOMEN: Liver: Unremarkable. Gallbladder and bile ducts: Unremarkable. No calcified stones. No ductal dilation. Pancreas: Unremarkable. No ductal dilation. Spleen: Unremarkable. No splenomegaly. Adrenals: Unremarkable. No mass. Kidneys and ureters: Bilateral low-grade hydronephrosis. No radiopaque stones in the urinary tract identified except for nonobstructing 3 mm stone in the inferior pole left kidney. Stomach and bowel: Scattered colonic diverticuli. No obstruction. No mucosal thickening. PELVIS: Appendix: No findings to suggest acute appendicitis. Bladder: The urinary bladder is decompressed by an indwelling Kaminski catheter No stones. Reproductive: Unremarkable as visualized. ABDOMEN and PELVIS: Intraperitoneal space: Unremarkable. No free air. No significant fluid collection. Bones/joints: No acute fracture. No dislocation. Soft tissues: Anasarca. Vasculature: Unremarkable. No abdominal aortic aneurysm. Lymph nodes: Enlarged left superficial inguinal lymph node measuring 2 cm short axis There are bilateral enlarged external iliac lymph nodes, measuring 2.9 cm x 5.1 cm on the left and 2.7 x 2.0 cm on the right. Other findings: Beam hardening from patient's abdominal girth degrades detail. IMPRESSION: 1. Enlarged pelvic lymph nodes could reflect reactive changes from cellulitis in the setting of generalized bony wall edema, or other acute inflammatory changes but neoplasm such as lymphomas not excluded. Correlate clinically. Ultrasound of the pelvis could be considered to help distinguish patient's ovaries from presumed pelvic adenopathy. 2. Mild bilateral hydronephrosis, with a Kaminski catheter in the urinary bladder. Correlate with bladder catheter function. DAILY ESTIMATED NEEDS: Needs based on obesity, ARF + HD/ 67kg abw 22-25 kcals/kg [id number] total kcals 1.2-1.8 w/ HD g protein/kg 81-120 g total protein Fluids per MD NUTRITION DIAGNOSIS: Altered nutrition related lab values R/T ARF, pre-diabetes as evidenced by elev BUN (157 -> 76 trend down), elev creat (142 -> 7.8), elev phos (6.8), elev mag (2.5). A1C of 6.0 w/ elev BGs (154 173 146). CURRENT DIET:RENAL, soft easy chew w/ NTL PO DIET RECOMMENDATIONS: RENAL, CCHO LOW/ texture per ANIMAL ASSISTED THERAPIST ADDITIONAL RECOMMENDATIONS: * Calibrated bedscale wt for accurate CBW- w/ added p200 mattress + pump * Phos binders w/ meals * Monitor renal fxn and continuity of HD- creat trending down * Monitor BGs, need for hypoglycemics -> rec carb controlled diet for BG and wt control. * Monitor PO intake and tolerance closely * Nephrovite x 1 as supplement (6) ARF (acute renal failure) (7) CAP (community acquired pneumonia) (8) Serum lipase elevation (9) Obesity (BMI 30-39.9) Angelo Naik Nov 29, 2019 13:37
--- NOTE | 2019-11-29 14:44 | Consultation ---
Consult Note Consult Note SOURCE OF INFORMATION: The patient and EMR. HPI: Ms Mercado is a 69yo who was admitted for delirium and shortness of breath. The patient is a poor historian and has a reported history of alcohol abuse and Psychiatric problems. The patient is coherent today. RAILWAY ENGINEER was consulted for acute heavy vaginal bleeding. The patient has ESRD, alcoholic encephalitis, and Psych disorder. She is morbidly obese and was diagnosed with LE DVT and is s/p IVC filter placement. The patient began bleeding heavily this afternoon. She is acutely anemic and blood transfusion has been ordered urgently. ROS: Limited as above. PMH: - Morbid obesity - LE DVT - Psych disorder - EtOH abuse - Sepsis - ESRD requiring dialysis PSH: Unable to assess, but recent IVC filter placement Meds: See med history in chart Allergies: NKDA OBHx: - daughter is 32yo? GYNHx: unable to obtain - last reported visit to RAILWAY ENGINEER was 30y ago - some ?vaginal bleeding recently SocHx: Lives with family FamHx: Unable to obtain FAMILY HISTORY: Not obtained. ALLERGIES: NKDA, with limitations not verified. VITALS: BP 105/55, P 80, O2 96% on 8L Ventri mask EXAM: HEENT: Atraumatic and normocephalic. O2 facemask in place CHEST: +crackles and wheezes ABDOMEN: Soft. Obese. No tenderness. MSK: No gross lateralized motor deficit. It is limited examination as the patient is not cooperative. SKIN: Dry, pressure ulcers on left heel NEUROLOGIC: The patient is able to answer questions today PELVIC: Significant blood and clot at introitus. Internal exam consistent with heavy vaginal bleeding. Unable to palpate uterus due to body habitus. Vagina small/atrophied. LABS: Labs Test 11/27/19 04:00 11/27/19 13:27 11/28/19 02:00 11/28/19 03:55 White Blood Count 22.7 K/UL (4.8-10.8) 20.7 K/UL (4.8-10.8) Red Blood Count 3.62 M/UL (4.20-5.40) 3.55 M/UL (4.20-5.40) Hemoglobin 8.0 G/DL (12.0-16.0) 7.9 G/DL (12.0-16.0) Hematocrit 25.5 % (37.0-47.0) 25.5 % (37.0-47.0) Mean Corpuscular Volume 71 FL (80-99) 72 FL (80-99) Mean Corpuscular Hemoglobin 22.2 PG (27.0-31.0) 22.1 PG (27.0-31.0) Mean Corpuscular Hemoglobin Concent 31.4 G/DL (32.0-36.0) 30.8 G/DL (32.0-36.0) Red Cell Distribution Width 24.1 % (11.6-14.8) 24.7 % (11.6-14.8) Platelet Count 151 K/UL (150-450) 124 K/UL (150-450) Mean Platelet Volume 5.7 FL (6.5-10.1) 6.1 FL (6.5-10.1) Neutrophils (%) (Auto) % (45.0-75.0) % (45.0-75.0) Lymphocytes (%) (Auto) % (20.0-45.0) % (20.0-45.0) Monocytes (%) (Auto) % (1.0-10.0) % (1.0-10.0) Eosinophils (%) (Auto) % (0.0-3.0) % (0.0-3.0) Basophils (%) (Auto) % (0.0-2.0) % (0.0-2.0) Differential Total Cells Counted 100 100 Neutrophils % (Manual) 87 % (45-75) 86 % (45-75) Lymphocytes % (Manual) 6 % (20-45) 7 % (20-45) Monocytes % (Manual) 7 % (1-10) 7 % (1-10) Eosinophils % (Manual) 0 % (0-3) 0 % (0-3) Basophils % (Manual) 0 % (0-2) 0 % (0-2) Band Neutrophils 0 % (0-8) 0 % (0-8) Platelet Estimate Adequate Decreased Platelet Morphology Normal Normal Anisocytosis 1+ 4+ Sodium Level 141 MMOL/L (136-145) 145 MMOL/L (136-145) Potassium Level 4.2 MMOL/L (3.5-5.1) 4.3 MMOL/L (3.5-5.1) Chloride Level 102 MMOL/L (98-107) 104 MMOL/L (98-107) Carbon Dioxide Level 30 MMOL/L (21-32) 31 MMOL/L (21-32) Anion Gap 9 mmol/L (5-15) 10 mmol/L (5-15) Blood Urea Nitrogen 76 mg/dL (7-18) 54 mg/dL (7-18) Creatinine 7.8 MG/DL (0.55-1.30) 6.4 MG/DL (0.55-1.30) Estimat Glomerular Filtration Rate 5.1 mL/min (>60) 6.5 mL/min (>60) Glucose Level 154 MG/DL (74-106) 126 MG/DL (74-106) Lactic Acid Level 1.80 mmol/L (0.4-2.0) Calcium Level 7.6 MG/DL (8.5-10.1) 7.7 MG/DL (8.5-10.1) Total Bilirubin 0.4 MG/DL (0.2-1.0) 0.4 MG/DL (0.2-1.0) Aspartate Amino Transf (AST/SGOT) 36 U/L (15-37) 35 U/L (15-37) Alanine Aminotransferase (ALT/SGPT) 24 U/L (12-78) 20 U/L (12-78) Alkaline Phosphatase 136 U/L (46-116) 119 U/L (46-116) Ammonia 32 umol/L (11-32) Lactate Dehydrogenase 422 U/L (81-234) Total Protein 5.5 G/DL (6.4-8.2) 5.3 G/DL (6.4-8.2) Albumin 1.6 G/DL (3.4-5.0) 1.5 G/DL (3.4-5.0) Globulin 3.9 g/dL Albumin/Globulin Ratio 0.4 (1.0-2.7) Amylase Level 69 U/L (25-115) Lipase 478 U/L (73-393) 246 U/L (73-393) HIV (1&2) Antibody Rapid Negative (NEGATIVE) Stool Occult Blood Negative (NEGATIVE) Negative (NEGATIVE) Hypochromasia 3+ Microcytosis 2+ Prothrombin Time 13.0 SEC (9.30-11.50) Prothromb Time International Ratio 1.2 (0.9-1.1) Phosphorus Level 6.2 MG/DL (2.5-4.9) Direct Bilirubin 0.1 MG/DL (0.0-0.3) Test 11/28/19 16:00 11/29/19 00:30 11/29/19 03:33 11/29/19 12:25 Stool Occult Blood Negative (NEGATIVE) Urine Color Pale yellow Urine Appearance Slightly cloudy Urine pH 6 (4.5-8.0) Urine Specific [place] 1.010 (1.005-1.035) Urine Protein 4+ (NEGATIVE) Urine Glucose (UA) Negative (NEGATIVE) Urine Ketones Negative (NEGATIVE) Urine Blood 5+ (NEGATIVE) Urine Nitrite Negative (NEGATIVE) Urine Bilirubin Negative (NEGATIVE) Urine Urobilinogen Normal MG/DL (0.0-1.0) Urine Leukocyte Esterase 3+ (NEGATIVE) Urine RBC Tntc /HPF (0 - 2) Urine WBC 10-15 /HPF (0 - 2) Urine Squamous Epithelial Cells None /LPF (NONE/OCC) Urine Bacteria Moderate /HPF (NONE) White Blood Count 20.1 K/UL (4.8-10.8) 22.0 K/UL (4.8-10.8) Red Blood Count 3.63 M/UL (4.20-5.40) 2.78 M/UL (4.20-5.40) Hemoglobin 8.0 G/DL (12.0-16.0) 6.2 G/DL (12.0-16.0) Hematocrit 26.3 % (37.0-47.0) 20.2 % (37.0-47.0) Mean Corpuscular Volume 72 FL (80-99) 73 FL (80-99) Mean Corpuscular Hemoglobin 22.1 PG (27.0-31.0) 22.4 PG (27.0-31.0) Mean Corpuscular Hemoglobin Concent 30.4 G/DL (32.0-36.0) 30.8 G/DL (32.0-36.0) Red Cell Distribution Width 25.8 % (11.6-14.8) 27.0 % (11.6-14.8) Platelet Count 115 K/UL (150-450) 113 K/UL (150-450) Mean Platelet Volume 7.0 FL (6.5-10.1) 7.0 FL (6.5-10.1) Neutrophils (%) (Auto) % (45.0-75.0) % (45.0-75.0) Lymphocytes (%) (Auto) % (20.0-45.0) % (20.0-45.0) Monocytes (%) (Auto) % (1.0-10.0) % (1.0-10.0) Eosinophils (%) (Auto) % (0.0-3.0) % (0.0-3.0) Basophils (%) (Auto) % (0.0-2.0) % (0.0-2.0) Differential Total Cells Counted 100 100 Neutrophils % (Manual) 82 % (45-75) 84 % (45-75) Lymphocytes % (Manual) 7 % (20-45) 6 % (20-45) Monocytes % (Manual) 9 % (1-10) 8 % (1-10) Eosinophils % (Manual) 2 % (0-3) 2 % (0-3) Basophils % (Manual) 0 % (0-2) 0 % (0-2) Band Neutrophils 0 % (0-8) 0 % (0-8) Platelet Estimate Decreased Decreased Platelet Morphology Normal Normal Polychromasia 1+ 1+ Hypochromasia 1+ 2+ Anisocytosis 3+ 3+ Microcytosis 1+ 1+ Sodium Level 143 MMOL/L (136-145) Potassium Level 4.5 MMOL/L (3.5-5.1) Chloride Level 103 MMOL/L (98-107) Carbon Dioxide Level 30 MMOL/L (21-32) Anion Gap 10 mmol/L (5-15) Blood Urea Nitrogen 67 mg/dL (7-18) Creatinine 7.1 MG/DL (0.55-1.30) Estimat Glomerular Filtration Rate 5.7 mL/min (>60) Glucose Level 97 MG/DL (74-106) Calcium Level 7.4 MG/DL (8.5-10.1) Phosphorus Level 6.1 MG/DL (2.5-4.9) Magnesium Level 2.4 MG/DL (1.8-2.4) Total Bilirubin 0.4 MG/DL (0.2-1.0) Gamma Glutamyl Transpeptidase 28 U/L (5-85) Aspartate Amino Transf (AST/SGOT) 31 U/L (15-37) Alanine Aminotransferase (ALT/SGPT) 26 U/L (12-78) Alkaline Phosphatase 118 U/L (46-116) C-Reactive Protein, Quantitative 42.4 mg/dL (0.00-0.90) Pro-B-Type Natriuretic Peptide 3108 pg/mL (0-125) Total Protein 5.5 G/DL (6.4-8.2) Albumin 1.5 G/DL (3.4-5.0) Globulin 4.0 g/dL Albumin/Globulin Ratio 0.4 (1.0-2.7) IMAGING: Pelvic US: FINDINGS: Transabdominal technique utilized. Patient unable to tolerate endovaginal exam. There is limited visualization of the uterus. It measures approximately 11.6 x 7.1 x 5.1 cm. Myometrium is heterogeneous. There is suggestion of a calcified fundal fibroid. Endometrial stripe is not well seen. Right ovary is not visualized. Left ovary is estimated at 3.3 x 2.9 cm. There is no free fluid. IMPRESSION: LIMITED TRANSABDOMINAL STUDY ONLY WITH RELATIVELY POOR DELINEATION OF THE REPRODUCTIVE ORGANS. HETEROGENEOUS UTERUS WITH APPARENT FIBROID CHANGE. RIGHT OVARY NOT VISUALIZED AND ENDOMETRIAL STRIPE ALSO POORLY SEEN LEFT OVARY IS ONLY MARGINALLY SEEN AND GROSSLY UNREMARKABLE. Assessment/Plan 69yo with severe acute postmenopausal bleeding in the setting of morbid obesity , ESRD, alcohol abuse, sepsis, and recent IVC filter placement for LE DVT. - Patient is continuing to bleed heavily - DDx of bleeding includes underlying coagulopathy, unopposed estrogen, malignancy - US was not able to visualize uterine lining clearly - Recommend correction of any lab abnormalities and monitor H/H closely - Transfuse blood products as indicated - 2u ordered stat - Patient is an extremely poor surgical candidate at this time given her SOB, active DVT, sepsis, ESRD, and alcoholic encephalopathy - Surgical management would be as a last resort only, and patient would need medical stabilization and clearance for hysteroscopy, D&C, and endometrial ablation - Other options would include possible uterine artery embolization, which would likely require urgent transfer to a higher level of care - I do not believe IR performs this procedure at [facility] - Would consider Progesterone treatment with Provera, however patient has active DVT with IVC filter in place and per guidelines Provera is contraindicated with active DVT - Plan of care discussed with Dr. Schroeder - Please contact my office again with any additional concerns at [phone] Signed: MD Stephanie Desouza Carla M.D. Nov 29, 2019 14:44
[2019-11-29 16:00] VITALS: BP 95/45
[2019-11-29] MEDS ORDERED: NS Irrig 1000ml ONE (16:12)
[2019-11-29] MEDS ORDERED: D5 1/2NS 1000ml IV ONE (16:12)
[2019-11-29] MEDS ORDERED: Tubing IV Secondary IV ONE (16:12)
[2019-11-29] MEDS ORDERED: NS 275ml ONE (16:12)
[2019-11-29] MEDS ORDERED: Tubing IV Blood Pump IV ONE (16:12)
--- NOTE | 2019-11-29 19:45 | Consultation ---
DATE OF CONSULTATION: 11/29/2019 PHYSICAL MEDICINE REHABILITATION CONSULTATION CONSULTING PHYSICIAN: Chester Eldridge MD. REQUESTING PHYSICIAN: Rebecca Schroeder MD. REQUESTING PHYSICIAN: Rebecca Schroeder M.D. INFECTIOUS DISEASES: Rose Stewart MD CIVIL RIGHTS INVESTIGATOR: Jean-Pierre Garcia MD. SPEECH AND LANGUAGE SPECIALIST: Ministerio Davis MD. RN LICENSED PRACTICAL: Adryan Lopez MD. INTERVENTIONAL RADIOLOGIST: TOP CARRIER: Gabe Rosa MD. HEMATOLOGY-ONCOLOGY: Holland Miranda MD DATE OF PROCEDURE: Right femoral temporary hemodialysis catheter placement November 24, 2019. CHIEF COMPLAINT: Difficulty functionally, cognition memory in a patient with multiple medical problems with acute toxic metabolic encephalopathy. HISTORY OF PRESENT ILLNESS: The patient is a 69-year-old female with history of alcohol and psychiatric disorder, was originally brought to the emergency room at [facility] by paramedics with altered mental status, shortness of breath, and apparently O2 saturation reported 79% on room air. The patient underwent COVID-19 test, which was reported negative. She has severely abnormal lab results including a white count of over 28,000, hemoglobin of 6.2, severely abnormal renal function with a BUN of 157 and creatinine of 14.2 on admission. The patient had a proBNP of over 2200. The patient was seen and followed by multiple consultants, underwent immediate femoral temporary catheter placement, started on hemodialysis under the care of extension service specialist in charge, Dr. Garcia. She was diagnosed with acute diastolic congestive heart failure, monitored and followed by Cardiology. The patient had elevated liver function tests. The patient has history of deep venous thrombosis and has IVC filter in place. Chest CT angiogram was negative for pulmonary emboli, IVC filter was placed on 11/26/2019. Head CT on 11/27/2019 was reported no acute intracranial process. Hospital course was complicated by massive vaginal bleeding requiring blood transfusion. The patient is here with functional impairment and cognitive impairment. I was asked today to evaluate the patient for rehabilitation. The patient is receiving packed RBC transfusion. She is alert and awake and denies any pain. She has severe weakness of bilateral of upper limb and lower limbs, cognitive and memory impairment. The patient had bilateral pneumonia, which was reported by the CT scan of the chest. She was treated with antibiotics as above under care of Infectious Diseases and nurse anesthesia program director. The patient has multiple ulcers under care of wound care team with dressing in place. PAST MEDICAL AND SURGICAL HISTORY: 1. Alcoholism. 2. Psychiatric disorder, based on one of the medical record paranoid schizophrenia. ALLERGIES: Not known drug allergy. MEDICATIONS: Thiamine 100 mg daily, Protonix 40 mg every 12 hours, Colace 100 mg three times a day, Sevelamer 1600 mg three times a day, MiraLAX 17 g at bedtimes, , Tylenol p.r.n., Colon p.r.n., epoetin gadiel 10,000 units Tuesday, Tuesday, Tuesday, Zyvox 600 mg p.o. b.i.d., Zosyn IV every 8 hours 2.25 g, iron IV at bedtime, albuterol inhaler every 4 hours as needed, lorazepam as needed, morphine IV p.r.n. FAMILY AND SOCIAL HISTORY: The patient is . She lives with her daughter and daughter's family in an apartment. There with 5 steps to enter. The patient was ambulating with a cane or walker prior to this admission, the detail of the information is not clear. The patient is a poor historian regarding her social history. The patient has history of alcohol; however, alcohol level based on urine tox screen on admission was less than 3. No history of tobacco or illicit drugs. Family history is not clear. Current level of function, not officially evaluated by physical therapist, however, requires significant amount of assistance for bed mobility. REVIEW OF SYSTEMS: CONSTITUTIONAL: No chills and fever. EYES: Denies diplopia. ENT: Dysphagia. CARDIOVASCULAR: No chest pain. PULMONARY: Shortness of breath and cough. GASTROINTESTINAL: No abdominal pain. GENITOURINARY: Vaginal bleed and acute kidney injury on hemodialysis. INTEGUMENTARY: Multiple ulcers. NEUROLOGIC: Cognitive memory impairment and generalized weakness. PHYSICAL EXAMINATION: VITAL SIGNS: Blood pressure 100/40, respiratory rate 19 per minute, heart rate 80 per minute, temperature 98 degree of Fahrenheit, O2 saturation 100%. Height is 162 centimeter, weight is 110 kilogram. Body mass index 41.9. GENERAL: No acute distress. HEENT: No facial droop. NECK: Supple with no lymphadenopathy. HEART: Regular. LUNGS: Diminished breath sounds of bilateral lung [place]. ABDOMEN: Soft, nontender, nondistended. EXTREMITIES: Edema bilateral lower limbs. SKIN: Multiple ulcers per wound care team. NEURO: Alert, awake, follows commands. She knows she is in the hospital, unable to recall the name of hospital, year, month, and date and name of President. Movement of bilateral upper and lower limb at the level of 2 to 3/5. Sensation, difficult to assess. LABORATORY DATA: WBC 22,000, hemoglobin 6.2, platelets 113. Sodium 144, potassium 4.1, BUN 56, creatinine 7.3, glucose 173. Uric acid 10.3. ASSESSMENT: The patient is a 69-year-old female with. 1. Acute toxic metabolic encephalopathy. 2. Quadriplegia. 3. Acute kidney injury, now on hemodialysis. 4. Vaginal bleeding and severe anemia requiring blood transfusion. 5. Negative COVID-19 on two settings of 11/24/2019 and 11/25/2019 per Microbiology reports. 6. Bilateral pneumonia. 7. Positive deep venous thrombosis of left common femoral to proximal superficial femoral vein, status post IVC filter placement on 11/26/2019. 8. Debility and functional decline. 9. Gait abnormality. 10. Acute diastolic congestive heart failure. 11. Alcoholism. 12. Dyslipidemia. 13. Transaminitis. 14. Thrombocytopenia. 15. Leukocytosis. 16. Morbid obesity with body mass index of over 41. RECOMMENDATION: 1. Continue medical management per Medicine and surgery. 2. Medical and surgical management per Medicine and surgery. 3. Skin care and wound care. 4. Fall precaution, pressure ulcer precaution, cardiac precaution, aspiration precaution. 5. Nutritional support. 6. Rehabilitation with physical therapy, occupational therapy, speech therapy, and 24 hours nursing care. 7. Physical therapy for range of motion, transfer training, endurance, balance, and ambulation training with appropriate assistive device with cardiac precaution. 8. Occupational therapy for activities of daily living, equipment function, transfer evaluation and training, upper extremity range of motion and strengthening exercise. 9. Speech therapy for evaluation of bowel and bladder, medication regimen, skin prevention of pressure ulcer, patient and family education. 10. Nursing for evaluation of her bowel and bladder, medication regimen, skin care prevention of pressure ulcer, patient and family education, . 11. The patient eventually requires acute inpatient rehabilitation placement when the patient is medically stable and cleared. 12. Continue medical management per Medicine. Chester Eldridge M.D. DR: Sabrina JOB#: [id number] CC:
[2019-11-29 20:00] VITALS: BP 112/51
[2019-11-29] MEDS: Miralax 17gm pkt ORAL SCH (21:00)
[2019-11-29] MEDS: Iron Sucrose 100 MG in NS 55 ML IV SCH (21:45)
[2019-11-29] MEDS: Dyna-Hex 2% Top Sol 2oz TOPIC SCH (21:45)
[2019-11-29 23:13] LABS: HEMATOCRIT 25.1 % (37.0-47.0); HEMOGLOBIN 8.1 G/DL (12.0-16.0); MEAN CORPUSCULAR VOLUME 78 FL (80-99); PLATELET COUNT 91 K/UL (150-450); RED BLOOD COUNT 3.23 M/UL (4.20-5.40); RED CELL DISTRIBUTION WIDTH 26.4 % (11.6-14.8)
[2019-11-29 23:22] LABS: WHITE BLOOD COUNT 28.8 K/UL (4.8-10.8)
[2019-11-30] VITALS: BP 122/65
[2019-11-30] MEDS: Piperacillin/Tazobactam 2.25 GM in D5W 55 ML IV SCH ×3 (01:56→18:42)
[2019-11-30 04:00] VITALS: BP 99/57
[2019-11-30 05:22] LABS: HEMATOCRIT 24.2 % (37.0-47.0); HEMOGLOBIN 7.7 G/DL (12.0-16.0); MEAN CORPUSCULAR VOLUME 78 FL (80-99); PLATELET COUNT 90 K/UL (150-450); RED CELL DISTRIBUTION WIDTH 24.4 % (11.6-14.8)
[2019-11-30 05:48] LABS: WHITE BLOOD COUNT 27.2 K/UL (4.8-10.8)
[2019-11-30 08:00] VITALS: BP 99/53
--- NOTE | 2019-11-30 08:16 | General Progress Note ---
Progress Note Progress Note GYNECOLOGY PROGRESS NOTE Patient with small amount of bleeding overnight, H/H stabilizing s/p 2u pRBCs. Laboratory Tests Test 11/29/19 12:25 11/29/19 22:45 11/30/19 05:00 White Blood Count 22.0 K/UL (4.8-10.8) H 28.8 K/UL (4.8-10.8) *H 27.2 K/UL (4.8-10.8) *H Red Blood Count 2.78 M/UL (4.20-5.40) L 3.23 M/UL (4.20-5.40) L 3.10 M/UL (4.20-5.40) L Hemoglobin 6.2 G/DL (12.0-16.0) *L 8.1 G/DL (12.0-16.0) #L 7.7 G/DL (12.0-16.0) L Hematocrit 20.2 % (37.0-47.0) L 25.1 % (37.0-47.0) L 24.2 % (37.0-47.0) L Mean Corpuscular Volume 73 FL (80-99) L 78 FL (80-99) L 78 FL (80-99) L Mean Corpuscular Hemoglobin 22.4 PG (27.0-31.0) L 25.0 PG (27.0-31.0) L 25.0 PG (27.0-31.0) L Mean Corpuscular Hemoglobin Concent 30.8 G/DL (32.0-36.0) L 32.2 G/DL (32.0-36.0) 31.9 G/DL (32.0-36.0) L Red Cell Distribution Width 27.0 % (11.6-14.8) H 26.4 % (11.6-14.8) H 24.4 % (11.6-14.8) H Platelet Count 113 K/UL (150-450) L 91 K/UL (150-450) L 90 K/UL (150-450) L Mean Platelet Volume 7.0 FL (6.5-10.1) 7.7 FL (6.5-10.1) 7.1 FL (6.5-10.1) Neutrophils (%) (Auto) % (45.0-75.0) % (45.0-75.0) % (45.0-75.0) Lymphocytes (%) (Auto) % (20.0-45.0) % (20.0-45.0) % (20.0-45.0) Monocytes (%) (Auto) % (1.0-10.0) % (1.0-10.0) % (1.0-10.0) Eosinophils (%) (Auto) % (0.0-3.0) % (0.0-3.0) % (0.0-3.0) Basophils (%) (Auto) % (0.0-2.0) % (0.0-2.0) % (0.0-2.0) Differential Total Cells Counted 100 100 Neutrophils % (Manual) 84 % (45-75) H 84 % (45-75) H Pending Lymphocytes % (Manual) 6 % (20-45) L 10 % (20-45) L Pending Monocytes % (Manual) 8 % (1-10) 6 % (1-10) Eosinophils % (Manual) 2 % (0-3) 0 % (0-3) Basophils % (Manual) 0 % (0-2) 0 % (0-2) Band Neutrophils 0 % (0-8) 0 % (0-8) Platelet Estimate Decreased L Decreased L Pending Platelet Morphology Normal Normal Pending Polychromasia 1+ Hypochromasia 2+ Anisocytosis 3+ Microcytosis 1+ Sodium Level Pending Potassium Level Pending Chloride Level Pending Carbon Dioxide Level Pending Blood Urea Nitrogen Pending Creatinine Pending Estimat Glomerular Filtration Rate Pending Glucose Level Pending Calcium Level Pending Phosphorus Level Pending Magnesium Level Pending Total Bilirubin Pending Aspartate Amino Transf (AST/SGOT) Pending Alanine Aminotransferase (ALT/SGPT) Pending Alkaline Phosphatase Pending Total Protein Pending Albumin Pending Globulin Pending TB Test (T-Spot) Pending TB Test Nil Control (T-Spot) Pending TB Test Panel A (T-Spot) Pending TB Test Panel B (T-Spot) Pending TB Test Positive Control (T-Spot) Pending - Recommend additional 1u pRBC transfusion and additional blood products as deemed necessary. No emergent surgical intervention indicated at this time. Contact us at [phone] if any additional support required from Gynecology. Will sign off for now. Thank you for allowing me to participate in the care of this complicated patient. Signed: MD Stephanie Desouza Carla M.D. Nov 30, 2019 08:16
[2019-11-30 08:32] LABS: ANION GAP 10 mmol/L (5-15); BLOOD UREA NITROGEN 73 mg/dL (7-18); CALCIUM 7.2 MG/DL (8.5-10.1); CARBON DIOXIDE 29 MMOL/L (21-32); CHLORIDE 101 MMOL/L (98-107); CREATININE 7.7 MG/DL (0.55-1.30); POTASSIUM 5.2 MMOL/L (3.5-5.1); SODIUM 139 MMOL/L (136-145)
[2019-11-30 08:36] LABS: ALANINE AMINOTRANSFERASE 22 U/L (12-78); ALBUMIN 1.3 G/DL (3.4-5.0); ALBUMIN/GLOBULIN RATIO 0.4 (1.0-2.7); ALKALINE PHOSPHATASE 85 U/L (46-116); ASPARTATE AMINO TRANSFERASE 32 U/L (15-37); BILIRUBIN,TOTAL 0.5 MG/DL (0.2-1.0); PHOSPHORUS 7.6 MG/DL (2.5-4.9)
--- NOTE | 2019-11-30 09:20 | Hematology/Onc Progress Note ---
Assessment/Plan Assessment/Plan Assessment and Recs # Left LE DVT and Probable PE s/p 11/25 IVC filter placement --> v/q scan: Overall findings suggesting intermediate probability for pulmonary embolism. More sensitive evaluation can be made with CT angiogram of the chest as clinically indicated. --> v. duplex: STUDY POSITIVE FOR DVT IN THE LEFT COMMON FEMORAL TO PROXIMAL SUPERFICIAL FEMORAL VEIN. LEFT COMMON FEMORAL TO PROXIMAL SUPERFICIAL FEMORAL --> unable to start anticoag given severe anemia, etoh use --> outpatient followup # Anemia of chronic disease due to underlying chronic medical issues, multifactorial v Gi bleed --> Anemia workup has been ordered, rule out gi bleed --> No evidence of hemolysis is noted, peripheral smear has been reviewed. --> Hgb goal >7. Transfuse prn. --> Epogen or iron both have been started for esrd --> Medications have been reviewed --> low threshold for gi evaluation in case has occult + --> recommend etoh cessation --> hgb 8.3-->8-->7.9->8-->7.7 # Leukocytosis due to sepsis uti and cap -> abx as per id zosyn --> wbc 31-->24-->23-->16-->27 --> imaging as needed # Thrombocytopenia likely due to infection --> trend 90 # Acute respiratory failure with hypoxia --> on bipap # ESRD --> per renal on hd # Sepsis with bilateral pna # CAP (community acquired pneumonia) # Hyperkalemia # Encephalopathy acute # Morbid obesity # History of EtOH abuse # Possible psychiatric disorder # Dvt ppx scds The timing of this note does not necessarily reflect the time of the patient was seen. Greatly appreciate consultation. Subjective Constitutional: Denies: no symptoms, chills, fever, malaise, weakness, other HEENT: Denies: no symptoms, eye pain, blurred vision, tearing, double vision, ear pain, ear discharge, nose pain, nose congestion, throat pain, throat swelling, mouth pain, mouth swelling, other Cardiovascular: Denies: no symptoms, chest pain, edema, irregular heart rate, lightheadedness, palpitations, syncope, other Gastrointestinal/Abdominal: Denies: no symptoms, abdomen distended, abdominal pain, black stools, tarry stools, blood in stool, constipated, diarrhea, difficulty swallowing, nausea, poor appetite, poor fluid intake, rectal bleeding , vomiting, other Genitourinary: Denies: no symptoms, burning, discharge, frequency, flank pain, hematuria, incontinence, pain, urgency, other Neurologic/Psychiatric: Denies: no symptoms, anxiety, depressed, emotional problems, headache, numbness, paresthesia, pre-existing deficit, seizure, tingling, tremors, weakness, other Endocrine: Denies: no symptoms, excessive sweating, flushing, intolerance to cold, intolerance to heat, increased hunger, increased thirst, increased urine, unexplained weight gain, unexplained weight loss, other Allergies: Coded Allergies: No Known Allergies (Unverified , 11/24/19) Subjective 11/27 more arousable on venturi mask, started on iv iron, plt lower 11/28 meds noted, no bleeding, dw rn, on venturi mask, labs noted 11/29 small amount of bleeding, no night sweats, doyle rn, hgb 7.7 Objective Objective Current Medications Medications (Trade) Dose Ordered Sig/Brina Route PRN Reason Start Time Stop Time Status Last Admin Dose Admin Acetaminophen (Tylenol) 650 mg Q8H PRN NG Mild Pain (Pain Scale 1-3) 11/27/19 08:30 12/27/19 08:29 Acetaminophen/ Hydrocodone Bitart (Deputy 10/325) 1 tab Q8H PRN ORAL Severe Pain (Pain Scale 7-10) 11/27/19 08:30 12/04/19 08:29 11/29/19 21:46 Acetaminophen/ Hydrocodone Bitart (Deputy 5/325) 1 tab Q8H PRN ORAL Moderate Pain (Pain Scale 4-6) 11/27/19 08:30 12/04/19 08:29 Albuterol/ Ipratropium (Albuterol/ Ipratropium) 3 ml Q4H PRN HHN sob 11/25/19 19:00 11/30/19 18:59 11/27/19 13:52 Barium Sulfate (Varibar Honey) 250 ml NOW PRN Radiology Procedure 11/27/19 16:00 11/30/19 15:57 Barium Sulfate (Varibar [place]) 230 ml NOW PRN Radiology Procedure 11/27/19 16:00 11/30/19 15:57 Barium Sulfate (Varibar Pudding) 230 ml NOW PRN Radiology Procedure 11/27/19 16:00 11/30/19 15:57 Chlorhexidine Gluconate (Shonna-Hex 2%) 1 applic DAILY@2000 TOPIC 11/26/19 20:00 02/24/20 19:59 11/29/19 21:45 Docusate Sodium (Colace) 100 mg THREE TIMES A DAY ORAL 11/28/19 18:00 12/28/19 17:59 11/29/19 18:13 Epoetin Zay (Epoetin Zay(ESRD on dialysis)) 10,000 unit TUE-TUE-TUE SUBQ 11/26/19 21:00 02/24/20 20:59 11/28/19 20:57 Linezolid (Zyvox) 600 mg EVERY 12 HOURS ORAL 11/26/19 12:00 12/05/19 23:59 11/29/19 21:45 Lorazepam (Ativan 2mg/ml 1ml) 1 mg Q4H PRN IV For Anxiety 11/25/19 18:45 12/02/19 10:44 Morphine Sulfate (Morphine Sulfate) 1 mg Q8H PRN IVP For Pain 11/25/19 18:30 12/02/19 18:29 Pantoprazole (Protonix) 40 mg EVERY 12 HOURS ORAL 11/28/19 21:00 12/28/19 20:59 11/29/19 21:45 Piperacillin Sod/ Tazobactam Sod 2.25 gm/Dextrose 55 ml @ 110 mls/hr Q8HR@0200,1000,1800 IV 11/26/19 02:00 12/01/19 09:59 11/30/19 01:56 Polyethylene Glycol (Miralax) 17 gm BEDTIME ORAL 11/27/19 21:00 12/27/19 20:59 11/29/19 21:00 Sevelamer Carbonate (Renvela) 1,600 mg THREE TIMES A DAY ORAL 11/28/19 18:00 02/26/20 17:59 11/29/19 18:09 Thiamine HCl (Vitamin B1) 100 mg DAILY ORAL 11/29/19 09:00 12/29/19 08:59 11/29/19 08:43 Last 24 Hour Vital Signs Date Time Temp Pulse Resp B/P (MAP) Pulse Ox O2 Delivery O2 Flow Rate FiO2 11/30/19 07:00 96 Venturi Mask 10.0 45 11/30/19 04:00 98.4 84 32 99/57 (71) 97 11/30/19 04:00 Venturi Mask 8.0 11/30/19 04:00 8.0 45 11/30/19 03:34 94 11/30/19 00:00 Venturi Mask 8.0 11/30/19 00:00 84 11/30/19 00:00 98.3 85 24 122/65 (84) 97 11/29/19 20:00 Venturi Mask 8.0 11/29/19 20:00 97.5 77 24 112/51 (71) 100 11/29/19 20:00 8.0 45 11/29/19 19:37 75 11/29/19 19:18 95 Venturi Mask 10.0 45 11/29/19 16:00 8.0 40 11/29/19 16:00 83 11/29/19 16:00 97.2 80 19 95/45 (62) 100 11/29/19 16:00 Venturi Mask 8.0 11/29/19 12:00 Venturi Mask 8.0 11/29/19 12:00 8.0 40 11/29/19 12:00 96.6 77 22 102/62 (75) 100 11/29/19 12:00 83 11/29/19 08:00 Venturi Mask 8.0 11/29/19 08:00 97.3 75 18 100/50 (67) 100 11/29/19 08:00 8.0 40 11/29/19 07:32 72 11/29/19 07:10 98 Venturi Mask 8.0 40 11/29/19 04:00 Venturi Mask 8.0 11/29/19 04:00 72 11/29/19 04:00 98.1 75 18 118/53 (74) 100 11/29/19 04:00 8.0 40 11/29/19 00:00 Venturi Mask 8.0 11/29/19 00:00 97.2 75 19 126/56 (79) 95 11/28/19 23:27 84 11/28/19 20:00 8.0 40 11/28/19 20:00 97.7 80 22 130/67 (88) 94 11/28/19 20:00 Venturi Mask 8.0 11/28/19 19:05 79 11/28/19 19:01 97 Venturi Mask 8.0 40 11/28/19 16:00 Venturi Mask 8.0 11/28/19 16:00 8.0 40 11/28/19 16:00 97.3 81 23 133/67 (89) 98 11/28/19 14:00 80 11/28/19 12:00 97.2 76 24 120/62 (81) 94 11/28/19 12:00 Nasal Cannula 4.0 11/28/19 12:00 4.0 11/28/19 12:00 77 Intake and Output 11/29/19 11/30/19 19:00 07:00 Intake Total 1210 ml 355 ml Output Total 500 ml 50 ml Balance 710 ml 305 ml Intake Oral 960 ml 300 ml IV Total 55 ml Blood Product 250 ml Output Urine Total 100 ml 50 ml Estimated Blood Loss 400 ml # Bowel Movements 2 Labs Test 11/27/19 13:27 11/28/19 02:00 11/28/19 03:55 11/28/19 16:00 Stool Occult Blood Negative (NEGATIVE) Negative (NEGATIVE) Negative (NEGATIVE) White Blood Count 20.7 K/UL (4.8-10.8) Red Blood Count 3.55 M/UL (4.20-5.40) Hemoglobin 7.9 G/DL (12.0-16.0) Hematocrit 25.5 % (37.0-47.0) Mean Corpuscular Volume 72 FL (80-99) Mean Corpuscular Hemoglobin 22.1 PG (27.0-31.0) Mean Corpuscular Hemoglobin Concent 30.8 G/DL (32.0-36.0) Red Cell Distribution Width 24.7 % (11.6-14.8) Platelet Count 124 K/UL (150-450) Mean Platelet Volume 6.1 FL (6.5-10.1) Neutrophils (%) (Auto) % (45.0-75.0) Lymphocytes (%) (Auto) % (20.0-45.0) Monocytes (%) (Auto) % (1.0-10.0) Eosinophils (%) (Auto) % (0.0-3.0) Basophils (%) (Auto) % (0.0-2.0) Differential Total Cells Counted 100 Neutrophils % (Manual) 86 % (45-75) Lymphocytes % (Manual) 7 % (20-45) Monocytes % (Manual) 7 % (1-10) Eosinophils % (Manual) 0 % (0-3) Basophils % (Manual) 0 % (0-2) Band Neutrophils 0 % (0-8) Platelet Estimate Decreased Platelet Morphology Normal Hypochromasia 3+ Anisocytosis 4+ Microcytosis 2+ Prothrombin Time 13.0 SEC (9.30-11.50) Prothromb Time International Ratio 1.2 (0.9-1.1) Sodium Level 145 MMOL/L (136-145) Potassium Level 4.3 MMOL/L (3.5-5.1) Chloride Level 104 MMOL/L (98-107) Carbon Dioxide Level 31 MMOL/L (21-32) Anion Gap 10 mmol/L (5-15) Blood Urea Nitrogen 54 mg/dL (7-18) Creatinine 6.4 MG/DL (0.55-1.30) Estimat Glomerular Filtration Rate 6.5 mL/min (>60) Glucose Level 126 MG/DL (74-106) Calcium Level 7.7 MG/DL (8.5-10.1) Phosphorus Level 6.2 MG/DL (2.5-4.9) Total Bilirubin 0.4 MG/DL (0.2-1.0) Direct Bilirubin 0.1 MG/DL (0.0-0.3) Aspartate Amino Transf (AST/SGOT) 35 U/L (15-37) Alanine Aminotransferase (ALT/SGPT) 20 U/L (12-78) Alkaline Phosphatase 119 U/L (46-116) Total Protein 5.3 G/DL (6.4-8.2) Albumin 1.5 G/DL (3.4-5.0) Lipase 246 U/L (73-393) Test 11/29/19 00:30 11/29/19 03:33 11/29/19 12:25 11/29/19 22:45 Urine Color Pale yellow Urine Appearance Slightly cloudy Urine pH 6 (4.5-8.0) Urine Specific Ellis 1.010 (1.005-1.035) Urine Protein 4+ (NEGATIVE) Urine Glucose (UA) Negative (NEGATIVE) Urine Ketones Negative (NEGATIVE) Urine Blood 5+ (NEGATIVE) Urine Nitrite Negative (NEGATIVE) Urine Bilirubin Negative (NEGATIVE) Urine Urobilinogen Normal MG/DL (0.0-1.0) Urine Leukocyte Esterase 3+ (NEGATIVE) Urine RBC Tntc /HPF (0 - 2) Urine WBC 10-15 /HPF (0 - 2) Urine Squamous Epithelial Cells None /LPF (NONE/OCC) Urine Bacteria Moderate /HPF (NONE) White Blood Count 20.1 K/UL (4.8-10.8) 22.0 K/UL (4.8-10.8) 28.8 K/UL (4.8-10.8) Red Blood Count 3.63 M/UL (4.20-5.40) 2.78 M/UL (4.20-5.40) 3.23 M/UL (4.20-5.40) Hemoglobin 8.0 G/DL (12.0-16.0) 6.2 G/DL (12.0-16.0) 8.1 G/DL (12.0-16.0) Hematocrit 26.3 % (37.0-47.0) 20.2 % (37.0-47.0) 25.1 % (37.0-47.0) Mean Corpuscular Volume 72 FL (80-99) 73 FL (80-99) 78 FL (80-99) Mean Corpuscular Hemoglobin 22.1 PG (27.0-31.0) 22.4 PG (27.0-31.0) 25.0 PG (27.0-31.0) Mean Corpuscular Hemoglobin Concent 30.4 G/DL (32.0-36.0) 30.8 G/DL (32.0-36.0) 32.2 G/DL (32.0-36.0) Red Cell Distribution Width 25.8 % (11.6-14.8) 27.0 % (11.6-14.8) 26.4 % (11.6-14.8) Platelet Count 115 K/UL (150-450) 113 K/UL (150-450) 91 K/UL (150-450) Mean Platelet Volume 7.0 FL (6.5-10.1) 7.0 FL (6.5-10.1) 7.7 FL (6.5-10.1) Neutrophils (%) (Auto) % (45.0-75.0) % (45.0-75.0) % (45.0-75.0) Lymphocytes (%) (Auto) % (20.0-45.0) % (20.0-45.0) % (20.0-45.0) Monocytes (%) (Auto) % (1.0-10.0) % (1.0-10.0) % (1.0-10.0) Eosinophils (%) (Auto) % (0.0-3.0) % (0.0-3.0) % (0.0-3.0) Basophils (%) (Auto) % (0.0-2.0) % (0.0-2.0) % (0.0-2.0) Differential Total Cells Counted 100 100 100 Neutrophils % (Manual) 82 % (45-75) 84 % (45-75) 84 % (45-75) Lymphocytes % (Manual) 7 % (20-45) 6 % (20-45) 10 % (20-45) Monocytes % (Manual) 9 % (1-10) 8 % (1-10) 6 % (1-10) Eosinophils % (Manual) 2 % (0-3) 2 % (0-3) 0 % (0-3) Basophils % (Manual) 0 % (0-2) 0 % (0-2) 0 % (0-2) Band Neutrophils 0 % (0-8) 0 % (0-8) 0 % (0-8) Platelet Estimate Decreased Decreased Decreased Platelet Morphology Normal Normal Normal Polychromasia 1+ 1+ Hypochromasia 1+ 2+ Anisocytosis 3+ 3+ Microcytosis 1+ 1+ Sodium Level 143 MMOL/L (136-145) Potassium Level 4.5 MMOL/L (3.5-5.1) Chloride Level 103 MMOL/L (98-107) Carbon Dioxide Level 30 MMOL/L (21-32) Anion Gap 10 mmol/L (5-15) Blood Urea Nitrogen 67 mg/dL (7-18) Creatinine 7.1 MG/DL (0.55-1.30) Estimat Glomerular Filtration Rate 5.7 mL/min (>60) Glucose Level 97 MG/DL (74-106) Calcium Level 7.4 MG/DL (8.5-10.1) Phosphorus Level 6.1 MG/DL (2.5-4.9) Magnesium Level 2.4 MG/DL (1.8-2.4) Total Bilirubin 0.4 MG/DL (0.2-1.0) Gamma Glutamyl Transpeptidase 28 U/L (5-85) Aspartate Amino Transf (AST/SGOT) 31 U/L (15-37) Alanine Aminotransferase (ALT/SGPT) 26 U/L (12-78) Alkaline Phosphatase 118 U/L (46-116) C-Reactive Protein, Quantitative 42.4 mg/dL (0.00-0.90) Pro-B-Type Natriuretic Peptide 3108 pg/mL (0-125) Total Protein 5.5 G/DL (6.4-8.2) Albumin 1.5 G/DL (3.4-5.0) Globulin 4.0 g/dL Albumin/Globulin Ratio 0.4 (1.0-2.7) Test 11/30/19 05:00 White Blood Count 27.2 K/UL (4.8-10.8) Red Blood Count 3.10 M/UL (4.20-5.40) Hemoglobin 7.7 G/DL (12.0-16.0) Hematocrit 24.2 % (37.0-47.0) Mean Corpuscular Volume 78 FL (80-99) Mean Corpuscular Hemoglobin 25.0 PG (27.0-31.0) Mean Corpuscular Hemoglobin Concent 31.9 G/DL (32.0-36.0) Red Cell Distribution Width 24.4 % (11.6-14.8) Platelet Count 90 K/UL (150-450) Mean Platelet Volume 7.1 FL (6.5-10.1) Neutrophils (%) (Auto) % (45.0-75.0) Lymphocytes (%) (Auto) % (20.0-45.0) Monocytes (%) (Auto) % (1.0-10.0) Eosinophils (%) (Auto) % (0.0-3.0) Basophils (%) (Auto) % (0.0-2.0) Sodium Level 139 MMOL/L (136-145) Potassium Level 5.2 MMOL/L (3.5-5.1) Chloride Level 101 MMOL/L (98-107) Carbon Dioxide Level 29 MMOL/L (21-32) Anion Gap 10 mmol/L (5-15) Blood Urea Nitrogen 73 mg/dL (7-18) Creatinine 7.7 MG/DL (0.55-1.30) Estimat Glomerular Filtration Rate 5.2 mL/min (>60) Glucose Level 93 MG/DL (74-106) Calcium Level 7.2 MG/DL (8.5-10.1) Phosphorus Level 7.6 MG/DL (2.5-4.9) Magnesium Level 2.4 MG/DL (1.8-2.4) Total Bilirubin 0.5 MG/DL (0.2-1.0) Aspartate Amino Transf (AST/SGOT) 32 U/L (15-37) Alanine Aminotransferase (ALT/SGPT) 22 U/L (12-78) Alkaline Phosphatase 85 U/L (46-116) Total Protein 4.7 G/DL (6.4-8.2) Albumin 1.3 G/DL (3.4-5.0) Globulin 3.4 g/dL Albumin/Globulin Ratio 0.4 (1.0-2.7) Height (Feet): 5 Height (Inches): 4.00 Weight (Pounds): 244 Objective Vitals: reviewed General: NAD HEENT: nc, at Neck: supple Chest: clear breath sounds bilaterally Cardiovascular: RRR, no s3, s4 Abdomen: soft, nontender, nd Extremities: no cce, normal range of motion Neuro: alert and oriented Holland Miranda MD Nov 30, 2019 09:20
--- NOTE | 2019-11-30 09:37 | Nephrology Progress Note ---
Assessment/Plan Problem List: (1) ARF (acute renal failure) (2) Sepsis (3) CAP (community acquired pneumonia) (4) Hyperkalemia (5) Encephalopathy acute (6) Anemia (7) Alcohol abuse Assessment: Long history as per daughter (8) Serum lipase elevation (9) Obesity (BMI 30-39.9) (10) Fatty liver Assessment Acute renal failure and hyperkalemia Most likely underlying chronic kidney disease Sepsis, pneumonia Toxic metabolic encephalopathy Severe anemia Morbid obesity Acute hypoxemic respiratory failure Elevated lipase possible pancreatitis Enlarged pelvic lymph nodes Anasarca History of EtOH abuse Possible psychiatric disorder Plan November 29: Dialysis yesterday was not done due to massive vaginal bleed. Patient was transfused 2 units of packed RBCs. Patient due for placement of tunneled permacath. Will attempt dialysis today. Continue to transfuse as needed. Vaginal bleeding etiology to be worked up by specialist. November 28: Due for dialysis today. Leukocytosis persist. Plan for placement of a permacath when stable from ID standpoint of view. November 27: Plan for dialysis tomorrow. White BC is 20,000. Thiamine and Protonix was changed to p.o. Renvela added as phosphorus binder November 26: Due for dialysis today. Leukocytosis persists. Continue per consultants. November 25. Patient was dialyzed 2 days in a row. Will order dialysis tomorrow. Leukocytosis persists. Patient on antibiotics. November 24: Patient was dialyzed yesterday. Serum potassium now within normal range. ABG improved. Discussed with RN. IV changed. Dialysis ordered again today. IV thiamine started. Ativan for agitation ordered. Recheck labs tomorrow. Continue per consultants. Amphojel as phosphorus binder also started. Previously: Anemia work-up ordered IV Venofer, subcu Epogen ordered Continue to monitor renal parameters Per orders Subjective ROS Limited/Unobtainable: No Constitutional: Reports: malaise Objective Objective Last 24 Hour Vital Signs Date Time Temp Pulse Resp B/P (MAP) Pulse Ox O2 Delivery O2 Flow Rate FiO2 11/30/19 08:00 97.3 84 23 99/53 (68) 99 11/30/19 07:00 96 Venturi Mask 10.0 45 11/30/19 04:00 98.4 84 32 99/57 (71) 97 11/30/19 04:00 Venturi Mask 8.0 11/30/19 04:00 8.0 45 11/30/19 03:34 94 11/30/19 00:00 Venturi Mask 8.0 11/30/19 00:00 84 11/30/19 00:00 98.3 85 24 122/65 (84) 97 11/29/19 20:00 Venturi Mask 8.0 11/29/19 20:00 97.5 77 24 112/51 (71) 100 11/29/19 20:00 8.0 45 11/29/19 19:37 75 11/29/19 19:18 95 Venturi Mask 10.0 45 11/29/19 16:00 8.0 40 11/29/19 16:00 83 11/29/19 16:00 97.2 80 19 95/45 (62) 100 11/29/19 16:00 Venturi Mask 8.0 11/29/19 12:00 Venturi Mask 8.0 11/29/19 12:00 8.0 40 11/29/19 12:00 96.6 77 22 102/62 (75) 100 11/29/19 12:00 83 Intake and Output 11/29/19 11/30/19 19:00 07:00 Intake Total 1210 ml 355 ml Output Total 500 ml 50 ml Balance 710 ml 305 ml Intake Oral 960 ml 300 ml IV Total 55 ml Blood Product 250 ml Output Urine Total 100 ml 50 ml Estimated Blood Loss 400 ml # Bowel Movements 2 Laboratory Tests 11/29/19 12:25: White Blood Count 22.0H, Red Blood Count 2.78L, Hemoglobin 6.2*L, Hematocrit 20.2L, Mean Corpuscular Volume 73L, Mean Corpuscular Hemoglobin 22.4L, Mean Corpuscular Hemoglobin Concent 30.8L, Red Cell Distribution Width 27.0H, Platelet Count 113L, Mean Platelet Volume 7.0, Neutrophils (%) (Auto) , Lymphocytes (%) (Auto) , Monocytes (%) (Auto) , Eosinophils (%) (Auto) , Basophils (%) (Auto) , Differential Total Cells Counted 100, Neutrophils % ( Manual) 84H, Lymphocytes % (Manual) 6L, Monocytes % (Manual) 8, Eosinophils % ( Manual) 2, Basophils % (Manual) 0, Band Neutrophils 0, Platelet Estimate DecreasedL, Platelet Morphology Normal, Polychromasia 1+, Hypochromasia 2+, Anisocytosis 3+, Microcytosis 1+ 11/29/19 22:45: White Blood Count 28.8*H, Red Blood Count 3.23L, Hemoglobin 8.1#L, Hematocrit 25.1L, Mean Corpuscular Volume 78L, Mean Corpuscular Hemoglobin 25.0L, Mean Corpuscular Hemoglobin Concent 32.2, Red Cell Distribution Width 26.4H, Platelet Count 91L, Mean Platelet Volume 7.7, Neutrophils (%) (Auto) , Lymphocytes (%) (Auto) , Monocytes (%) (Auto) , Eosinophils (%) (Auto) , Basophils (%) (Auto) , Differential Total Cells Counted 100, Neutrophils % ( Manual) 84H, Lymphocytes % (Manual) 10L, Monocytes % (Manual) 6, Eosinophils % ( Manual) 0, Basophils % (Manual) 0, Band Neutrophils 0, Platelet Estimate DecreasedL, Platelet Morphology Normal 11/30/19 05:00: White Blood Count 27.2*H, Red Blood Count 3.10L, Hemoglobin 7.7L, Hematocrit 24.2L, Mean Corpuscular Volume 78L, Mean Corpuscular Hemoglobin 25.0L, Mean Corpuscular Hemoglobin Concent 31.9L, Red Cell Distribution Width 24.4H, Platelet Count 90L, Mean Platelet Volume 7.1, Neutrophils (%) (Auto) , Lymphocytes (%) (Auto) , Monocytes (%) (Auto) , Eosinophils (%) (Auto) , Basophils (%) (Auto) , Neutrophils % (Manual) [Pending], Lymphocytes % (Manual) [Pending], Platelet Estimate [Pending], Platelet Morphology [Pending], Sodium Level 139, Potassium Level 5.2H, Chloride Level 101, Carbon Dioxide Level 29, Anion Gap 10, Blood Urea Nitrogen 73H, Creatinine 7.7H, Estimat Glomerular Filtration Rate 5.2, Glucose Level 93, Calcium Level 7.2L, Phosphorus Level 7.6H , Magnesium Level 2.4, Total Bilirubin 0.5, Aspartate Amino Transf (AST/SGOT) 32 , Alanine Aminotransferase (ALT/SGPT) 22, Alkaline Phosphatase 85, Total Protein 4.7L, Albumin 1.3L, Globulin 3.4, Albumin/Globulin Ratio 0.4L, TB Test ( T-Spot) [Pending], TB Test Nil Control (T-Spot) [Pending], TB Test Panel A (T- Spot) [Pending], TB Test Panel B (T-Spot) [Pending], TB Test Positive Control (T -Spot) [Pending] Height (Feet): 5 Height (Inches): 4.00 Weight (Pounds): 244 General Appearance: no apparent distress - Potassium 2.2 Cardiovascular: tachycardia Respiratory/Chest: decreased breath sounds Abdomen: soft Genitourinary/Rectal: other - Has massive vaginal bleed Objective No other change Jean-Pierre Garcia MD Nov 30, 2019 09:37
[2019-11-30] MEDS: Docusate 100mg cap ORAL SCH ×3 (09:39→18:41)
[2019-11-30] MEDS: Thiamine 100mg tab ORAL SCH (09:39)
--- NOTE | 2019-11-30 10:00 | General Progress Note ---
Assessment/Plan Assessment/Plan: S, O: pt is awake , seems comfortable, seen and examined in step down unit. in mild sob. PHYSICAL EXAMINATION:HEAD AND NECK: Atraumatic and normocephalic. CHEST: Diffuse bronchial breathing sounds.HEART: S1 and S2. Regular rate and rhythm. ABDOMEN: Soft. No organomegaly. Protuberant. No tenderness. MUSCULOSKELETAL: Right inguinal HD- access noted, No gross lateralized motor deficit. It is limited examination as the patient is not cooperative. b/l le edema and tenderness NEUROLOGIC: The patient is delirious. DIAGNOSTIC AND LABORATORY DATA: Imaging, Chest -CT dated November 26 Labs, dated November 29 reviwed ASSESSMENT: 1. Severe sepsis. 2. PNA- Bilateral 3. Hypoxemic respiratory failure. 3. Acute Anemia 5. Acute Menometrorrhagia 6. Hyperkalemia. 4. End-stage renal disease. 5. CHF, likely diagnosis. 6. Abnormal blood sugar. 7. Acute on chronic Microcytic anemia. 8. GI and DVT prophylaxis. 9. LE DVT- Bilateral PLAN OF CARE: contra indication for anticoagulation . D/W Hemonch regarding IVC notes form ID, Nephrology reviewed S/P IVC filter placement. Given the importance of diagnosis of PE in the risk stratification decision for physicians and surgeons ATC, will proceed with Chest CT-Angio No additional ATC at this time, pending stool occult test I called the daughter Piper and updated her about over medical cnd on November 27 around 2 PM D/w Dr Pedersen, Centrifugal Operator. Agree for current conservative mgt. Not medically stable for surgical or aggressive methods in controlling the Menometrorrhagia Subjective Allergies: Coded Allergies: No Known Allergies (Unverified , 11/24/19) Objective Last 24 Hour Vital Signs Date Time Temp Pulse Resp B/P (MAP) Pulse Ox O2 Delivery O2 Flow Rate FiO2 11/30/19 08:00 97.3 84 23 99/53 (68) 99 11/30/19 07:00 96 Venturi Mask 10.0 45 11/30/19 04:00 98.4 84 32 99/57 (71) 97 11/30/19 04:00 Venturi Mask 8.0 11/30/19 04:00 8.0 45 11/30/19 03:34 94 11/30/19 00:00 Venturi Mask 8.0 11/30/19 00:00 84 11/30/19 00:00 98.3 85 24 122/65 (84) 97 11/29/19 20:00 Venturi Mask 8.0 11/29/19 20:00 97.5 77 24 112/51 (71) 100 11/29/19 20:00 8.0 45 11/29/19 19:37 75 11/29/19 19:18 95 Venturi Mask 10.0 45 11/29/19 16:00 8.0 40 11/29/19 16:00 83 11/29/19 16:00 97.2 80 19 95/45 (62) 100 11/29/19 16:00 Venturi Mask 8.0 11/29/19 12:00 Venturi Mask 8.0 11/29/19 12:00 8.0 40 11/29/19 12:00 96.6 77 22 102/62 (75) 100 11/29/19 12:00 83 Intake and Output 11/29/19 11/30/19 19:00 07:00 Intake Total 1210 ml 355 ml Output Total 500 ml 50 ml Balance 710 ml 305 ml Intake Oral 960 ml 300 ml IV Total 55 ml Blood Product 250 ml Output Urine Total 100 ml 50 ml Estimated Blood Loss 400 ml # Bowel Movements 2 Laboratory Tests 11/29/19 12:25: White Blood Count 22.0H, Red Blood Count 2.78L, Hemoglobin 6.2*L, Hematocrit 20.2L, Mean Corpuscular Volume 73L, Mean Corpuscular Hemoglobin 22.4L, Mean Corpuscular Hemoglobin Concent 30.8L, Red Cell Distribution Width 27.0H, Platelet Count 113L, Mean Platelet Volume 7.0, Neutrophils (%) (Auto) , Lymphocytes (%) (Auto) , Monocytes (%) (Auto) , Eosinophils (%) (Auto) , Basophils (%) (Auto) , Differential Total Cells Counted 100, Neutrophils % ( Manual) 84H, Lymphocytes % (Manual) 6L, Monocytes % (Manual) 8, Eosinophils % ( Manual) 2, Basophils % (Manual) 0, Band Neutrophils 0, Platelet Estimate DecreasedL, Platelet Morphology Normal, Polychromasia 1+, Hypochromasia 2+, Anisocytosis 3+, Microcytosis 1+ 11/29/19 22:45: White Blood Count 28.8*H, Red Blood Count 3.23L, Hemoglobin 8.1#L, Hematocrit 25.1L, Mean Corpuscular Volume 78L, Mean Corpuscular Hemoglobin 25.0L, Mean Corpuscular Hemoglobin Concent 32.2, Red Cell Distribution Width 26.4H, Platelet Count 91L, Mean Platelet Volume 7.7, Neutrophils (%) (Auto) , Lymphocytes (%) (Auto) , Monocytes (%) (Auto) , Eosinophils (%) (Auto) , Basophils (%) (Auto) , Differential Total Cells Counted 100, Neutrophils % ( Manual) 84H, Lymphocytes % (Manual) 10L, Monocytes % (Manual) 6, Eosinophils % ( Manual) 0, Basophils % (Manual) 0, Band Neutrophils 0, Platelet Estimate DecreasedL, Platelet Morphology Normal 11/30/19 05:00: White Blood Count 27.2*H, Red Blood Count 3.10L, Hemoglobin 7.7L, Hematocrit 24.2L, Mean Corpuscular Volume 78L, Mean Corpuscular Hemoglobin 25.0L, Mean Corpuscular Hemoglobin Concent 31.9L, Red Cell Distribution Width 24.4H, Platelet Count 90L, Mean Platelet Volume 7.1, Neutrophils (%) (Auto) , Lymphocytes (%) (Auto) , Monocytes (%) (Auto) , Eosinophils (%) (Auto) , Basophils (%) (Auto) , Differential Total Cells Counted 100, Neutrophils % ( Manual) 94H, Lymphocytes % (Manual) 3L, Monocytes % (Manual) 3, Eosinophils % ( Manual) 0, Basophils % (Manual) 0, Band Neutrophils 0, Platelet Estimate DecreasedL, Platelet Morphology Normal, Polychromasia 2+, Hypochromasia 1+, Anisocytosis 3+, Microcytosis 1+, Sodium Level 139, Potassium Level 5.2H, Chloride Level 101, Carbon Dioxide Level 29, Anion Gap 10, Blood Urea Nitrogen 73H, Creatinine 7.7H, Estimat Glomerular Filtration Rate 5.2, Glucose Level 93, Calcium Level 7.2L, Phosphorus Level 7.6H, Magnesium Level 2.4, Total Bilirubin 0.5, Aspartate Amino Transf (AST/SGOT) 32, Alanine Aminotransferase (ALT/SGPT) 22, Alkaline Phosphatase 85, Total Protein 4.7L, Albumin 1.3L, Globulin 3.4, Albumin/Globulin Ratio 0.4L, TB Test (T-Spot) [Pending], TB Test Nil Control (T- Spot) [Pending], TB Test Panel A (T-Spot) [Pending], TB Test Panel B (T-Spot) [ Pending], TB Test Positive Control (T-Spot) [Pending] Height (Feet): 5 Height (Inches): 4.00 Weight (Pounds): 244 Rebecca Schroeder MD Nov 30, 2019 10:00
--- NOTE | 2019-11-30 10:07 | Pulmonology Progress Note ---
Carlita Brewster MORTGAGE COORDINATOR 11/30/19 1007: Subjective ROS Limited/Unobtainable: No Allergies: Coded Allergies: No Known Allergies (Unverified , 11/24/19) Subjective episode of large vaginal bleeding 11/28 afternoon Hgb down to 7.7 back to 45% VM no fevers, persistent leucocytosis feeling tired and weak weaned down to O2 via NC still SOB, no CP afebrile, still with persistent leucocytosis s/p IVC filter 11/25 VQ scan -> intermediate probability for pulmonary embolism. afebrile, still persistent leucocytosis CTA chest no PE Objective Last 24 Hour Vital Signs Date Time Temp Pulse Resp B/P (MAP) Pulse Ox O2 Delivery O2 Flow Rate FiO2 11/30/19 08:00 97.3 84 23 99/53 (68) 99 11/30/19 07:00 96 Venturi Mask 10.0 45 11/30/19 04:00 98.4 84 32 99/57 (71) 97 11/30/19 04:00 Venturi Mask 8.0 11/30/19 04:00 8.0 45 11/30/19 03:34 94 11/30/19 00:00 Venturi Mask 8.0 11/30/19 00:00 84 11/30/19 00:00 98.3 85 24 122/65 (84) 97 11/29/19 20:00 Venturi Mask 8.0 11/29/19 20:00 97.5 77 24 112/51 (71) 100 11/29/19 20:00 8.0 45 11/29/19 19:37 75 11/29/19 19:18 95 Venturi Mask 10.0 45 11/29/19 16:00 8.0 40 11/29/19 16:00 83 11/29/19 16:00 97.2 80 19 95/45 (62) 100 11/29/19 16:00 Venturi Mask 8.0 11/29/19 12:00 Venturi Mask 8.0 11/29/19 12:00 8.0 40 11/29/19 12:00 96.6 77 22 102/62 (75) 100 11/29/19 12:00 83 Intake and Output 11/29/19 11/30/19 19:00 07:00 Intake Total 1210 ml 355 ml Output Total 500 ml 50 ml Balance 710 ml 305 ml Intake Oral 960 ml 300 ml IV Total 55 ml Blood Product 250 ml Output Urine Total 100 ml 50 ml Estimated Blood Loss 400 ml # Bowel Movements 2 Objective General Appearance: Bulgarian speaking, in NAD, calm, obese female Lines, tubes and drains: peripheral, also CL via R femoral ->HD catheter HEENT: normocephalic, atraumatic, anicteric, mucous membranes moist Neck: non-tender, supple Respiratory/Chest: no accessory muscle use, few crackles at bases Cardiovascular/Chest: normal peripheral pulses, normal rate, regular rhythm Abdomen: normal bowel sounds, soft - obese, non tender Extremities: normal range of motion, non-tender, no calf tenderness, +1 edema BLE Neurologic: no motor/sensory deficits, alert, responsive but somewhat confused Musculoskeletal: normal muscle bulk Microbiology Date/Time Source Procedure Growth Status 11/29/19 00:30 Urine,Clean Catch Urine Culture - Preliminary NO GROWTH Resulted Laboratory Tests 11/29/19 12:25: White Blood Count 22.0H, Red Blood Count 2.78L, Hemoglobin 6.2*L, Hematocrit 20.2L, Mean Corpuscular Volume 73L, Mean Corpuscular Hemoglobin 22.4L, Mean Corpuscular Hemoglobin Concent 30.8L, Red Cell Distribution Width 27.0H, Platelet Count 113L, Mean Platelet Volume 7.0, Neutrophils (%) (Auto) , Lymphocytes (%) (Auto) , Monocytes (%) (Auto) , Eosinophils (%) (Auto) , Basophils (%) (Auto) , Differential Total Cells Counted 100, Neutrophils % ( Manual) 84H, Lymphocytes % (Manual) 6L, Monocytes % (Manual) 8, Eosinophils % ( Manual) 2, Basophils % (Manual) 0, Band Neutrophils 0, Platelet Estimate DecreasedL, Platelet Morphology Normal, Polychromasia 1+, Hypochromasia 2+, Anisocytosis 3+, Microcytosis 1+ 11/29/19 22:45: White Blood Count 28.8*H, Red Blood Count 3.23L, Hemoglobin 8.1#L, Hematocrit 25.1L, Mean Corpuscular Volume 78L, Mean Corpuscular Hemoglobin 25.0L, Mean Corpuscular Hemoglobin Concent 32.2, Red Cell Distribution Width 26.4H, Platelet Count 91L, Mean Platelet Volume 7.7, Neutrophils (%) (Auto) , Lymphocytes (%) (Auto) , Monocytes (%) (Auto) , Eosinophils (%) (Auto) , Basophils (%) (Auto) , Differential Total Cells Counted 100, Neutrophils % ( Manual) 84H, Lymphocytes % (Manual) 10L, Monocytes % (Manual) 6, Eosinophils % ( Manual) 0, Basophils % (Manual) 0, Band Neutrophils 0, Platelet Estimate DecreasedL, Platelet Morphology Normal 11/30/19 05:00: White Blood Count 27.2*H, Red Blood Count 3.10L, Hemoglobin 7.7L, Hematocrit 24.2L, Mean Corpuscular Volume 78L, Mean Corpuscular Hemoglobin 25.0L, Mean Corpuscular Hemoglobin Concent 31.9L, Red Cell Distribution Width 24.4H, Platelet Count 90L, Mean Platelet Volume 7.1, Neutrophils (%) (Auto) , Lymphocytes (%) (Auto) , Monocytes (%) (Auto) , Eosinophils (%) (Auto) , Basophils (%) (Auto) , Differential Total Cells Counted 100, Neutrophils % ( Manual) 94H, Lymphocytes % (Manual) 3L, Monocytes % (Manual) 3, Eosinophils % ( Manual) 0, Basophils % (Manual) 0, Band Neutrophils 0, Platelet Estimate DecreasedL, Platelet Morphology Normal, Polychromasia 2+, Hypochromasia 1+, Anisocytosis 3+, Microcytosis 1+, Sodium Level 139, Potassium Level 5.2H, Chloride Level 101, Carbon Dioxide Level 29, Anion Gap 10, Blood Urea Nitrogen 73H, Creatinine 7.7H, Estimat Glomerular Filtration Rate 5.2, Glucose Level 93, Calcium Level 7.2L, Phosphorus Level 7.6H, Magnesium Level 2.4, Total Bilirubin 0.5, Aspartate Amino Transf (AST/SGOT) 32, Alanine Aminotransferase (ALT/SGPT) 22, Alkaline Phosphatase 85, Total Protein 4.7L, Albumin 1.3L, Globulin 3.4, Albumin/Globulin Ratio 0.4L, TB Test (T-Spot) [Pending], TB Test Nil Control (T- Spot) [Pending], TB Test Panel A (T-Spot) [Pending], TB Test Panel B (T-Spot) [ Pending], TB Test Positive Control (T-Spot) [Pending] Current Medications Medications (Trade) Dose Ordered Sig/Brina Route PRN Reason Start Time Stop Time Status Last Admin Dose Admin Acetaminophen (Tylenol) 650 mg Q8H PRN NG Mild Pain (Pain Scale 1-3) 11/27/19 08:30 12/27/19 08:29 Acetaminophen/ Hydrocodone Bitart (Naper 10/325) 1 tab Q8H PRN ORAL Severe Pain (Pain Scale 7-10) 11/27/19 08:30 12/04/19 08:29 11/29/19 21:46 Acetaminophen/ Hydrocodone Bitart (Naper 5/325) 1 tab Q8H PRN ORAL Moderate Pain (Pain Scale 4-6) 11/27/19 08:30 12/04/19 08:29 Albuterol/ Ipratropium (Albuterol/ Ipratropium) 3 ml Q4H PRN HHN sob 11/25/19 19:00 11/30/19 18:59 11/27/19 13:52 Barium Sulfate (Varibar Honey) 250 ml NOW PRN Radiology Procedure 11/27/19 16:00 11/30/19 15:57 Barium Sulfate (Varibar Eek) 230 ml NOW PRN Radiology Procedure 11/27/19 16:00 11/30/19 15:57 Barium Sulfate (Varibar Pudding) 230 ml NOW PRN Radiology Procedure 11/27/19 16:00 11/30/19 15:57 Chlorhexidine Gluconate (Shonna-Hex 2%) 1 applic DAILY@2000 TOPIC 11/26/19 20:00 02/24/20 19:59 11/29/19 21:45 Docusate Sodium (Colace) 100 mg THREE TIMES A DAY ORAL 11/28/19 18:00 12/28/19 17:59 11/30/19 09:39 Epoetin Zay (Epoetin Zay(ESRD on dialysis)) 10,000 unit TUE-TUE-TUE SUBQ 11/26/19 21:00 02/24/20 20:59 11/28/19 20:57 Linezolid (Zyvox) 600 mg EVERY 12 HOURS ORAL 11/26/19 12:00 12/05/19 23:59 11/30/19 09:39 Lorazepam (Ativan 2mg/ml 1ml) 1 mg Q4H PRN IV For Anxiety 11/25/19 18:45 8/2/20 10:44 Morphine Sulfate (Morphine Sulfate) 1 mg Q8H PRN IVP For Pain 11/25/19 18:30 12/02/19 18:29 Pantoprazole (Protonix) 40 mg EVERY 12 HOURS ORAL 11/28/19 21:00 12/28/19 20:59 11/30/19 09:39 Piperacillin Sod/ Tazobactam Sod 2.25 gm/Dextrose 55 ml @ 110 mls/hr Q8HR@0200,1000,1800 IV 11/26/19 02:00 12/01/19 09:59 11/30/19 09:33 Polyethylene Glycol (Miralax) 17 gm BEDTIME ORAL 11/27/19 21:00 12/27/19 20:59 11/29/19 21:00 Sevelamer Carbonate (Renvela) 1,600 mg THREE TIMES A DAY ORAL 11/28/19 18:00 02/26/20 17:59 11/30/19 09:39 Thiamine HCl (Vitamin B1) 100 mg DAILY ORAL 11/29/19 09:00 12/29/19 08:59 11/30/19 09:39 Assessment/Plan Assessment/Plan ASSESSMENT Sepsis Acute hypoxemic respiratory failure - Acute toxic metabolic encephalopathy ( multifactorial due to ARF, sepsis)- improving Acute renal failure , requiring start of HD MRSA PNA Acute DVT LLE common femoral to proximal superficial veins , r/o RE-NGT Possible UTI Hyperkalemia Severe pulmonary HTN Anemia Severe postmenopausal bleeding Elevated lipase, possible pancreatitis Pelvic LAD Anasarca History of EtOH abuse Possible psychiatric disorder PLAN OF CARE LEOBARDO supplemental O2 titrate to keep sat above 92%, resp status improved after HD, now on O2 via NC fup with CXR pulm toilet SCX + MRSA hx of recent resp illness empiric abx per ID recs-> Zosyn , Zyvox persistent leukocytosis, no fevers CTA chest with evidence of PNA initial SOB and resp distress were most likely due to fluid overload 2 to acute renal failure, and now acute DVT , r/o PE Venous Duplex BLE + acute DVT LEFT COMMON FEMORAL TO PROXIMAL SUPERFICIAL FEMORAL VEINs. unable to start a/coagulation given Hgb 7.3 stat VQ scan 11/25 with intermediate probability for pulmonary embolism. s/p IVC filter 11/25 CTA chest -> no PE + BL infiltrates and RLL consolidation +mediastinal adenopathy aspir precautions VSS pending s/p 2 u PRBC monitor HH with goal to keep Hg above 7,s/p 2 u PRBC 11/23, on EPO and IV iron anemia w/up noted stool OB pending rapid COVID 19 11/23 x 2 - NGT rapid COVID 19 11/24 NGT BCX 11/23 NGTD ? UTI UCX 11/25 NGT SCX 11/25 + MRSA further management of ARF and hyper K as per hospice volunteer - bicarb stabilized s/p HD via R fem temp HD catheter, placed by surgeon creat trending down monitor volumes permanent HD catheter placement pending ECHO with pEF 65% and RVSP of 58 c/w severe pulm HTN cardiac monitoring-SR lipase trended down to normal hep panel pending HIV nonreactive abd US, given enlarged lymph nodes-> fatty liver with a small septated cyst. Gallstones. The spleen, left kidney, CBD, pancreas ,aorta and cava not well defined. lipase and AST trending down CT head -no acute IC patholgoy pelvic US noted episode of large postmenopausal bleeding 11/28 MAIL HANDLER ASSISTANT eval appreciated not a candidate for surgical interventions as this time needs hysteroscopy, D&C and endometrium ablation , will need medical stabilization and clearance prior to surgery MAIL HANDLER ASSISTANT was unable to start Provera given acute DVT at this time medically optimize, monitor closely, check counts thank you for consult Reece Peters MD 11/30/19 1100: Subjective Allergies: Coded Allergies: No Known Allergies (Unverified , 11/24/19) Assessment/Plan Assessment/Plan Patient seen and examined with MORTGAGE COORDINATOR. Agree with above A&P as it reflects our joint deliberations. Carlita Brewster MORTGAGE COORDINATOR Nov 30, 2019 10:07 Reece Peters MD Nov 30, 2019 11:00
--- NOTE | 2019-11-30 10:24 | Surgery Progress Note ---
Surgery Progress Note Subjective Procedure Performed right femoral temporary Hemodialysis catheter insertion Additional Comments Acute hemorrhage endometrial vaginal appreciated gynecology input transfuse 2 units PRBC Currently no active bleeding noted mild oozing at times dressings not getting significant saturated. Labs noted exam stable Objective Last 24 Hour Vital Signs Date Time Temp Pulse Resp B/P (MAP) Pulse Ox O2 Delivery O2 Flow Rate FiO2 11/30/19 08:00 97.3 84 23 99/53 (68) 99 11/30/19 07:00 96 Venturi Mask 10.0 45 11/30/19 04:00 98.4 84 32 99/57 (71) 97 11/30/19 04:00 Venturi Mask 8.0 11/30/19 04:00 8.0 45 11/30/19 03:34 94 11/30/19 00:00 Venturi Mask 8.0 11/30/19 00:00 84 11/30/19 00:00 98.3 85 24 122/65 (84) 97 11/29/19 20:00 Venturi Mask 8.0 11/29/19 20:00 97.5 77 24 112/51 (71) 100 11/29/19 20:00 8.0 45 11/29/19 19:37 75 11/29/19 19:18 95 Venturi Mask 10.0 45 11/29/19 16:00 8.0 40 11/29/19 16:00 83 11/29/19 16:00 97.2 80 19 95/45 (62) 100 11/29/19 16:00 Venturi Mask 8.0 11/29/19 12:00 Venturi Mask 8.0 11/29/19 12:00 8.0 40 11/29/19 12:00 96.6 77 22 102/62 (75) 100 11/29/19 12:00 83 I&O Intake and Output 11/29/19 11/30/19 19:00 07:00 Intake Total 1210 ml 355 ml Output Total 500 ml 50 ml Balance 710 ml 305 ml Intake Oral 960 ml 300 ml IV Total 55 ml Blood Product 250 ml Output Urine Total 100 ml 50 ml Estimated Blood Loss 400 ml # Bowel Movements 2 Dressing: saturated Cardiovascular: RSR Respiratory: decreased breath sounds Abdomen: soft, non-tender, present bowel sounds Extremities: edema, no cyanosis Laboratory Tests Test 11/29/19 12:25 11/29/19 22:45 11/30/19 05:00 White Blood Count 22.0 K/UL (4.8-10.8) H 28.8 K/UL (4.8-10.8) *H 27.2 K/UL (4.8-10.8) *H Red Blood Count 2.78 M/UL (4.20-5.40) L 3.23 M/UL (4.20-5.40) L 3.10 M/UL (4.20-5.40) L Hemoglobin 6.2 G/DL (12.0-16.0) *L 8.1 G/DL (12.0-16.0) #L 7.7 G/DL (12.0-16.0) L Hematocrit 20.2 % (37.0-47.0) L 25.1 % (37.0-47.0) L 24.2 % (37.0-47.0) L Mean Corpuscular Volume 73 FL (80-99) L 78 FL (80-99) L 78 FL (80-99) L Mean Corpuscular Hemoglobin 22.4 PG (27.0-31.0) L 25.0 PG (27.0-31.0) L 25.0 PG (27.0-31.0) L Mean Corpuscular Hemoglobin Concent 30.8 G/DL (32.0-36.0) L 32.2 G/DL (32.0-36.0) 31.9 G/DL (32.0-36.0) L Red Cell Distribution Width 27.0 % (11.6-14.8) H 26.4 % (11.6-14.8) H 24.4 % (11.6-14.8) H Platelet Count 113 K/UL (150-450) L 91 K/UL (150-450) L 90 K/UL (150-450) L Mean Platelet Volume 7.0 FL (6.5-10.1) 7.7 FL (6.5-10.1) 7.1 FL (6.5-10.1) Neutrophils (%) (Auto) % (45.0-75.0) % (45.0-75.0) % (45.0-75.0) Lymphocytes (%) (Auto) % (20.0-45.0) % (20.0-45.0) % (20.0-45.0) Monocytes (%) (Auto) % (1.0-10.0) % (1.0-10.0) % (1.0-10.0) Eosinophils (%) (Auto) % (0.0-3.0) % (0.0-3.0) % (0.0-3.0) Basophils (%) (Auto) % (0.0-2.0) % (0.0-2.0) % (0.0-2.0) Differential Total Cells Counted 100 100 100 Neutrophils % (Manual) 84 % (45-75) H 84 % (45-75) H 94 % (45-75) H Lymphocytes % (Manual) 6 % (20-45) L 10 % (20-45) L 3 % (20-45) L Monocytes % (Manual) 8 % (1-10) 6 % (1-10) 3 % (1-10) Eosinophils % (Manual) 2 % (0-3) 0 % (0-3) 0 % (0-3) Basophils % (Manual) 0 % (0-2) 0 % (0-2) 0 % (0-2) Band Neutrophils 0 % (0-8) 0 % (0-8) 0 % (0-8) Platelet Estimate Decreased L Decreased L Decreased L Platelet Morphology Normal Normal Normal Polychromasia 1+ 2+ Hypochromasia 2+ 1+ Anisocytosis 3+ 3+ Microcytosis 1+ 1+ Sodium Level 139 MMOL/L (136-145) Potassium Level 5.2 MMOL/L (3.5-5.1) H Chloride Level 101 MMOL/L (98-107) Carbon Dioxide Level 29 MMOL/L (21-32) Anion Gap 10 mmol/L (5-15) Blood Urea Nitrogen 73 mg/dL (7-18) H Creatinine 7.7 MG/DL (0.55-1.30) H Estimat Glomerular Filtration Rate 5.2 mL/min (>60) Glucose Level 93 MG/DL (74-106) Calcium Level 7.2 MG/DL (8.5-10.1) L Phosphorus Level 7.6 MG/DL (2.5-4.9) H Magnesium Level 2.4 MG/DL (1.8-2.4) Total Bilirubin 0.5 MG/DL (0.2-1.0) Aspartate Amino Transf (AST/SGOT) 32 U/L (15-37) Alanine Aminotransferase (ALT/SGPT) 22 U/L (12-78) Alkaline Phosphatase 85 U/L (46-116) Total Protein 4.7 G/DL (6.4-8.2) L Albumin 1.3 G/DL (3.4-5.0) L Globulin 3.4 g/dL Albumin/Globulin Ratio 0.4 (1.0-2.7) L TB Test (T-Spot) Pending TB Test Nil Control (T-Spot) Pending TB Test Panel A (T-Spot) Pending TB Test Panel B (T-Spot) Pending TB Test Positive Control (T-Spot) Pending Plan Problems: (1) Anemia (2) Encephalopathy acute (3) Acute respiratory failure with hypoxia (4) Hyperkalemia (5) Sepsis Assessment & Plan: Leukocytosis anemia hyperkalemia abnormal labs HD catheter placed received dialysis and slowly potassium improved. Plan for repeat dialysis ordered. IV antibiotics per infectious disease Patient is alert awake but confused. Slowly improving No hematoma or bleeding identified Site looks clean We will continue with HD on a sure if renal function will improve may need permacath CT reviewed edema noted lymph nodes noted likely reactive Thank you for let me participate patient's care with follow with recommendations s/p filter placement stable acute blood loss anemia vaginal bleeding coags heme input transfuse prbc trend h/h will monitor for bleeding thank you ABDOMEN: Liver: Unremarkable. Gallbladder and bile ducts: Unremarkable. No calcified stones. No ductal dilation. Pancreas: Unremarkable. No ductal dilation. Spleen: Unremarkable. No splenomegaly. Adrenals: Unremarkable. No mass. Kidneys and ureters: Bilateral low-grade hydronephrosis. No radiopaque stones in the urinary tract identified except for nonobstructing 3 mm stone in the inferior pole left kidney. Stomach and bowel: Scattered colonic diverticuli. No obstruction. No mucosal thickening. PELVIS: Appendix: No findings to suggest acute appendicitis. Bladder: The urinary bladder is decompressed by an indwelling Kaminski catheter No stones. Reproductive: Unremarkable as visualized. ABDOMEN and PELVIS: Intraperitoneal space: Unremarkable. No free air. No significant fluid collection. Bones/joints: No acute fracture. No dislocation. Soft tissues: Anasarca. Vasculature: Unremarkable. No abdominal aortic aneurysm. Lymph nodes: Enlarged left superficial inguinal lymph node measuring 2 cm short axis There are bilateral enlarged external iliac lymph nodes, measuring 2.9 cm x 5.1 cm on the left and 2.7 x 2.0 cm on the right. Other findings: Beam hardening from patient's abdominal girth degrades detail. IMPRESSION: 1. Enlarged pelvic lymph nodes could reflect reactive changes from cellulitis in the setting of generalized bony wall edema, or other acute inflammatory changes but neoplasm such as lymphomas not excluded. Correlate clinically. Ultrasound of the pelvis could be considered to help distinguish patient's ovaries from presumed pelvic adenopathy. 2. Mild bilateral hydronephrosis, with a Kaminski catheter in the urinary bladder. Correlate with bladder catheter function. DAILY ESTIMATED NEEDS: Needs based on obesity, ARF + HD/ 67kg abw 22-25 kcals/kg [id number] total kcals 1.2-1.8 w/ HD g protein/kg 81-120 g total protein Fluids per MD NUTRITION DIAGNOSIS: Altered nutrition related lab values R/T ARF, pre-diabetes as evidenced by elev BUN (157 -> 76 trend down), elev creat (142 -> 7.8), elev phos (6.8), elev mag (2.5). A1C of 6.0 w/ elev BGs (154 173 146). CURRENT DIET:RENAL, soft easy chew w/ NTL PO DIET RECOMMENDATIONS: RENAL, CCHO LOW/ texture per GENERAL MANAGER FOOD ADDITIONAL RECOMMENDATIONS: * Calibrated bedscale wt for accurate CBW- w/ added p200 mattress + pump * Phos binders w/ meals * Monitor renal fxn and continuity of HD- creat trending down * Monitor BGs, need for hypoglycemics -> rec carb controlled diet for BG and wt control. * Monitor PO intake and tolerance closely * Nephrovite x 1 as supplement (6) ARF (acute renal failure) (7) CAP (community acquired pneumonia) (8) Serum lipase elevation (9) Obesity (BMI 30-39.9) Angelo Naik Nov 30, 2019 10:24
--- NOTE | 2019-11-30 11:23 | General Progress Note ---
Assessment/Plan Assessment/Plan: 1. Acute renal failure. 2. Leukocytosis. 3. History of alcohol abuse. 4. Profound microcytic anemia. 5. Prior history of possible psychiatric disorder. 6. Elevated lipase. 7. Mild transaminitis. 8. Pelvic lymphadenopathy. 9. obesity 10. DVT s/p IVC filter placement 11. PNA 12. vaginal bleed fu labs on oral diet stable H&H vag bleed>> improving pending perm cath placement speech eval appreciated HD per nephrology abx Subjective ROS Limited/Unobtainable: Yes Allergies: Coded Allergies: No Known Allergies (Unverified , 11/24/19) Subjective more alert Objective Last 24 Hour Vital Signs Date Time Temp Pulse Resp B/P (MAP) Pulse Ox O2 Delivery O2 Flow Rate FiO2 11/30/19 08:00 97.3 84 23 99/53 (68) 99 11/30/19 07:00 96 Venturi Mask 10.0 45 11/30/19 04:00 98.4 84 32 99/57 (71) 97 11/30/19 04:00 Venturi Mask 8.0 11/30/19 04:00 8.0 45 11/30/19 03:34 94 11/30/19 00:00 Venturi Mask 8.0 11/30/19 00:00 84 11/30/19 00:00 98.3 85 24 122/65 (84) 97 11/29/19 20:00 Venturi Mask 8.0 11/29/19 20:00 97.5 77 24 112/51 (71) 100 11/29/19 20:00 8.0 45 11/29/19 19:37 75 11/29/19 19:18 95 Venturi Mask 10.0 45 11/29/19 16:00 8.0 40 11/29/19 16:00 83 11/29/19 16:00 97.2 80 19 95/45 (62) 100 11/29/19 16:00 Venturi Mask 8.0 11/29/19 12:00 Venturi Mask 8.0 11/29/19 12:00 8.0 40 11/29/19 12:00 96.6 77 22 102/62 (75) 100 11/29/19 12:00 83 Intake and Output 11/29/19 11/30/19 19:00 07:00 Intake Total 1210 ml 355 ml Output Total 500 ml 50 ml Balance 710 ml 305 ml Intake Oral 960 ml 300 ml IV Total 55 ml Blood Product 250 ml Output Urine Total 100 ml 50 ml Estimated Blood Loss 400 ml # Bowel Movements 2 Laboratory Tests 11/29/19 12:25: White Blood Count 22.0H, Red Blood Count 2.78L, Hemoglobin 6.2*L, Hematocrit 20.2L, Mean Corpuscular Volume 73L, Mean Corpuscular Hemoglobin 22.4L, Mean Corpuscular Hemoglobin Concent 30.8L, Red Cell Distribution Width 27.0H, Platelet Count 113L, Mean Platelet Volume 7.0, Neutrophils (%) (Auto) , Lymphocytes (%) (Auto) , Monocytes (%) (Auto) , Eosinophils (%) (Auto) , Basophils (%) (Auto) , Differential Total Cells Counted 100, Neutrophils % ( Manual) 84H, Lymphocytes % (Manual) 6L, Monocytes % (Manual) 8, Eosinophils % ( Manual) 2, Basophils % (Manual) 0, Band Neutrophils 0, Platelet Estimate DecreasedL, Platelet Morphology Normal, Polychromasia 1+, Hypochromasia 2+, Anisocytosis 3+, Microcytosis 1+ 11/29/19 22:45: White Blood Count 28.8*H, Red Blood Count 3.23L, Hemoglobin 8.1#L, Hematocrit 25.1L, Mean Corpuscular Volume 78L, Mean Corpuscular Hemoglobin 25.0L, Mean Corpuscular Hemoglobin Concent 32.2, Red Cell Distribution Width 26.4H, Platelet Count 91L, Mean Platelet Volume 7.7, Neutrophils (%) (Auto) , Lymphocytes (%) (Auto) , Monocytes (%) (Auto) , Eosinophils (%) (Auto) , Basophils (%) (Auto) , Differential Total Cells Counted 100, Neutrophils % ( Manual) 84H, Lymphocytes % (Manual) 10L, Monocytes % (Manual) 6, Eosinophils % ( Manual) 0, Basophils % (Manual) 0, Band Neutrophils 0, Platelet Estimate DecreasedL, Platelet Morphology Normal 11/30/19 05:00: White Blood Count 27.2*H, Red Blood Count 3.10L, Hemoglobin 7.7L, Hematocrit 24.2L, Mean Corpuscular Volume 78L, Mean Corpuscular Hemoglobin 25.0L, Mean Corpuscular Hemoglobin Concent 31.9L, Red Cell Distribution Width 24.4H, Platelet Count 90L, Mean Platelet Volume 7.1, Neutrophils (%) (Auto) , Lymphocytes (%) (Auto) , Monocytes (%) (Auto) , Eosinophils (%) (Auto) , Basophils (%) (Auto) , Differential Total Cells Counted 100, Neutrophils % ( Manual) 94H, Lymphocytes % (Manual) 3L, Monocytes % (Manual) 3, Eosinophils % ( Manual) 0, Basophils % (Manual) 0, Band Neutrophils 0, Platelet Estimate DecreasedL, Platelet Morphology Normal, Polychromasia 2+, Hypochromasia 1+, Anisocytosis 3+, Microcytosis 1+, Sodium Level 139, Potassium Level 5.2H, Chloride Level 101, Carbon Dioxide Level 29, Anion Gap 10, Blood Urea Nitrogen 73H, Creatinine 7.7H, Estimat Glomerular Filtration Rate 5.2, Glucose Level 93, Calcium Level 7.2L, Phosphorus Level 7.6H, Magnesium Level 2.4, Total Bilirubin 0.5, Aspartate Amino Transf (AST/SGOT) 32, Alanine Aminotransferase (ALT/SGPT) 22, Alkaline Phosphatase 85, Total Protein 4.7L, Albumin 1.3L, Globulin 3.4, Albumin/Globulin Ratio 0.4L, TB Test (T-Spot) [Pending], TB Test Nil Control (T- Spot) [Pending], TB Test Panel A (T-Spot) [Pending], TB Test Panel B (T-Spot) [ Pending], TB Test Positive Control (T-Spot) [Pending] 11/30/19 11:00: White Blood Count [Pending], Red Blood Count [Pending], Hemoglobin [Pending], Hematocrit [Pending], Mean Corpuscular Volume [Pending], Mean Corpuscular Hemoglobin [Pending], Mean Corpuscular Hemoglobin Concent [Pending], Red Cell Distribution Width [Pending], Platelet Count [Pending], Mean Platelet Volume [ Pending], Neutrophils (%) (Auto) [Pending], Lymphocytes (%) (Auto) [Pending], Monocytes (%) (Auto) [Pending], Eosinophils (%) (Auto) [Pending], Basophils (%) (Auto) [Pending] Height (Feet): 5 Height (Inches): 4.00 Weight (Pounds): 244 General Appearance: alert EENT: normal ENT inspection Neck: normal alignment Cardiovascular: normal rate Respiratory/Chest: decreased breath sounds Abdomen: hypoactive bowel sounds Extremities: non-tender Ministerio Davis MD Nov 30, 2019 11:23
--- NOTE | 2019-11-30 11:24 | Infectious Diseases Prog Note ---
Assessment/Plan ASSESSMENT: The patient is a 69-year-old female with: 1. Respiratory distress.- SP Bipap- sp NC> VM 40%, 8L 11/26> 4l NC 11/27> VM 40% 8L 11/28 2. B/l Pneumonia- COVID neg x3 -11/24 sp cx MRSA -11/23 Rapid COVID PCR neg x2; 11/24 rapid COVID PCR neg -11/23 CT chest: Bilateral pneumonia, with greater confluence in the posterior right lower lobe. 3. SEvere Leukocytosis, acute reacted to distress versus sepsis. -on the high 20s-30s -likely multifactorial due to PE/DVT, PNA, pancreaitis, acute renal failure --now increased likely 2ry to vaginal bleeding- r.o bacteremia, -pelvic US: LIMITED TRANSABDOMINAL STUDY ONLY WITH RELATIVELY POOR DELINEATION OF THE REPRODUCTIVE ORGANS. HETEROGENEOUS UTERUS WITH APPARENT FIBROID CHANGE. RIGHT OVARY NOT VISUALIZED AND ENDOMETRIAL STRIPE ALSO POORLY SEEN LEFT OVARY IS ONLY MARGINALLY SEEN AND GROSSLY UNREMARKABLE. -Abd US: STUDY LIMITED DUE TO BODY HABITUS AND BOWEL GAS. FATTY LIVER WITH A SMALL SEPTATED CYST. GALLSTONES.THE SPLEEN, LEFT KIDNEY, COMMON BILE DUCT AND PANCREAS WELL AORTA AND CAVA ARE NOT WELL DEFINED. -CT abd/p : Enlarged pelvic lymph nodes could reflect reactive changes from cellulitis in the setting of generalized bony wall edema, or other acute inflammatory changes but neoplasm such as lymphomas not excluded. Correlate clinically. Ultrasound of the pelvis could be considered to help distinguish patient's ovaries from presumed pelvic adenopathy.Mild bilateral hydronephrosis , with a Kaminski catheter in the urinary bladder. Correlate with bladder catheter function. 4. Sepsis.. -11/28 u/a wbc 10-15, nit neg, leuk +3 -11/25 ucx Neg -11/23 BCx Neg 5.Vaginal bleeding 6 L LE DVT and Probable PE -CTA chest: NO CT EVIDENCE OF PULMONARY EMBOLISM TO THE EXTENT VISUALIZED.BILATERAL INFILTRATES AND RIGHT LOWER LOBE CONSOLIDATION. THE CONSOLIDATION DOESOBSCURE SOME PERIPHERAL SUBSEGMENTAL BRANCHES OF THE RIGHT LOWER LOBE AND SMALLPERIPHERAL EMBOLI IN THIS AREA CANNOT BE EXCLUDED.MEDIASTINAL ADENOPATHY.ANASARCA. -11/25 SP IVC filter placement -v/q scan: Overall findings suggesting intermediate probability for pulmonary embolism. More sensitive evaluation can be made with CT angiogram of the chest as clinically indicated. -v. duplex: STUDY POSITIVE FOR DVT IN THE LEFT COMMON FEMORAL TO PROXIMAL SUPERFICIAL FEMORAL VEIN. 7. Severe acute renal failure; improving- likely underlying CKD -on HD now 8. Acute pancreatitis EtOh abuse PLAN: 1. Switch ZYvox #09/08 to IV Vancomycin for MRSA PNA given worsening thrombocytopenia a ZOsyn #/ -11/23 SP CEftriaxone x1, Azythromycin x1, IV Vancomycin x1 2. Monitor blood culture. 3. Monitor urine culture. 4. COVID neg x3 (2 were sent on same day) 5. Monitor lipase. 6. f/u flow cytometry 7. Will hold on permacath placement today given rise in WBC; will repeat Bcx- may do insertion on Saturday 12/02 if afebrile, prelim Bcx negative and wbc improving Discussed with RN, Dr Schroeder and Dr Garcia Subjective Allergies: Coded Allergies: No Known Allergies (Unverified , 11/24/19) afebrile on VM 10L, Fio2 45% had heavy vaginal bleeding yesterday wbc increased to 28 Objective Last 24 Hour Vital Signs Date Time Temp Pulse Resp B/P (MAP) Pulse Ox O2 Delivery O2 Flow Rate FiO2 11/30/19 08:00 97.3 84 23 99/53 (68) 99 11/30/19 07:00 96 Venturi Mask 10.0 45 11/30/19 04:00 98.4 84 32 99/57 (71) 97 11/30/19 04:00 Venturi Mask 8.0 11/30/19 04:00 8.0 45 11/30/19 03:34 94 11/30/19 00:00 Venturi Mask 8.0 11/30/19 00:00 84 11/30/19 00:00 98.3 85 24 122/65 (84) 97 11/29/19 20:00 Venturi Mask 8.0 11/29/19 20:00 97.5 77 24 112/51 (71) 100 11/29/19 20:00 8.0 45 11/29/19 19:37 75 11/29/19 19:18 95 Venturi Mask 10.0 45 11/29/19 16:00 8.0 40 11/29/19 16:00 83 11/29/19 16:00 97.2 80 19 95/45 (62) 100 11/29/19 16:00 Venturi Mask 8.0 11/29/19 12:00 Venturi Mask 8.0 11/29/19 12:00 8.0 40 11/29/19 12:00 96.6 77 22 102/62 (75) 100 11/29/19 12:00 83 Height (Feet): 5 Height (Inches): 4.00 Weight (Pounds): 244 HEENT: No pale conjunctivae. No icterus. NECK: No lymphadenopathy. CHEST: Coarse breathing sounds. HEART: S1-S2. ABDOMEN: Obese. EXTREMITIES: No cyanosis at this time. NEUROLOGIC: Awake. Microbiology Date/Time Source Procedure Growth Status 11/29/19 00:30 Urine,Clean Catch Urine Culture - Preliminary NO GROWTH Resulted Laboratory Tests Test 11/29/19 12:25 11/29/19 22:45 11/30/19 05:00 White Blood Count 22.0 K/UL (4.8-10.8) H 28.8 K/UL (4.8-10.8) *H 27.2 K/UL (4.8-10.8) *H Red Blood Count 2.78 M/UL (4.20-5.40) L 3.23 M/UL (4.20-5.40) L 3.10 M/UL (4.20-5.40) L Hemoglobin 6.2 G/DL (12.0-16.0) *L 8.1 G/DL (12.0-16.0) #L 7.7 G/DL (12.0-16.0) L Hematocrit 20.2 % (37.0-47.0) L 25.1 % (37.0-47.0) L 24.2 % (37.0-47.0) L Mean Corpuscular Volume 73 FL (80-99) L 78 FL (80-99) L 78 FL (80-99) L Mean Corpuscular Hemoglobin 22.4 PG (27.0-31.0) L 25.0 PG (27.0-31.0) L 25.0 PG (27.0-31.0) L Mean Corpuscular Hemoglobin Concent 30.8 G/DL (32.0-36.0) L 32.2 G/DL (32.0-36.0) 31.9 G/DL (32.0-36.0) L Red Cell Distribution Width 27.0 % (11.6-14.8) H 26.4 % (11.6-14.8) H 24.4 % (11.6-14.8) H Platelet Count 113 K/UL (150-450) L 91 K/UL (150-450) L 90 K/UL (150-450) L Mean Platelet Volume 7.0 FL (6.5-10.1) 7.7 FL (6.5-10.1) 7.1 FL (6.5-10.1) Neutrophils (%) (Auto) % (45.0-75.0) % (45.0-75.0) % (45.0-75.0) Lymphocytes (%) (Auto) % (20.0-45.0) % (20.0-45.0) % (20.0-45.0) Monocytes (%) (Auto) % (1.0-10.0) % (1.0-10.0) % (1.0-10.0) Eosinophils (%) (Auto) % (0.0-3.0) % (0.0-3.0) % (0.0-3.0) Basophils (%) (Auto) % (0.0-2.0) % (0.0-2.0) % (0.0-2.0) Differential Total Cells Counted 100 100 100 Neutrophils % (Manual) 84 % (45-75) H 84 % (45-75) H 94 % (45-75) H Lymphocytes % (Manual) 6 % (20-45) L 10 % (20-45) L 3 % (20-45) L Monocytes % (Manual) 8 % (1-10) 6 % (1-10) 3 % (1-10) Eosinophils % (Manual) 2 % (0-3) 0 % (0-3) 0 % (0-3) Basophils % (Manual) 0 % (0-2) 0 % (0-2) 0 % (0-2) Band Neutrophils 0 % (0-8) 0 % (0-8) 0 % (0-8) Platelet Estimate Decreased L Decreased L Decreased L Platelet Morphology Normal Normal Normal Polychromasia 1+ 2+ Hypochromasia 2+ 1+ Anisocytosis 3+ 3+ Microcytosis 1+ 1+ Sodium Level 139 MMOL/L (136-145) Potassium Level 5.2 MMOL/L (3.5-5.1) H Chloride Level 101 MMOL/L (98-107) Carbon Dioxide Level 29 MMOL/L (21-32) Anion Gap 10 mmol/L (5-15) Blood Urea Nitrogen 73 mg/dL (7-18) H Creatinine 7.7 MG/DL (0.55-1.30) H Estimat Glomerular Filtration Rate 5.2 mL/min (>60) Glucose Level 93 MG/DL (74-106) Calcium Level 7.2 MG/DL (8.5-10.1) L Phosphorus Level 7.6 MG/DL (2.5-4.9) H Magnesium Level 2.4 MG/DL (1.8-2.4) Total Bilirubin 0.5 MG/DL (0.2-1.0) Aspartate Amino Transf (AST/SGOT) 32 U/L (15-37) Alanine Aminotransferase (ALT/SGPT) 22 U/L (12-78) Alkaline Phosphatase 85 U/L (46-116) Total Protein 4.7 G/DL (6.4-8.2) L Albumin 1.3 G/DL (3.4-5.0) L Globulin 3.4 g/dL Albumin/Globulin Ratio 0.4 (1.0-2.7) L TB Test (T-Spot) Pending TB Test Nil Control (T-Spot) Pending TB Test Panel A (T-Spot) Pending TB Test Panel B (T-Spot) Pending TB Test Positive Control (T-Spot) Pending Current Medications Medications (Trade) Dose Ordered Sig/Brina Route PRN Reason Start Time Stop Time Status Last Admin Dose Admin Acetaminophen (Tylenol) 650 mg Q8H PRN NG Mild Pain (Pain Scale 1-3) 11/27/19 08:30 12/27/19 08:29 Acetaminophen/ Hydrocodone Bitart ([place] 10/325) 1 tab Q8H PRN ORAL Severe Pain (Pain Scale 7-10) 11/27/19 08:30 12/04/19 08:29 11/29/19 21:46 Acetaminophen/ Hydrocodone Bitart ([place] 5/325) 1 tab Q8H PRN ORAL Moderate Pain (Pain Scale 4-6) 11/27/19 08:30 12/04/19 08:29 Albuterol/ Ipratropium (Albuterol/ Ipratropium) 3 ml Q4H PRN HHN sob 11/25/19 19:00 11/30/19 18:59 11/27/19 13:52 Barium Sulfate (Varibar Honey) 250 ml NOW PRN Radiology Procedure 11/27/19 16:00 11/30/19 15:57 Barium Sulfate (Varibar [place]) 230 ml NOW PRN Radiology Procedure 11/27/19 16:00 11/30/19 15:57 Barium Sulfate (Varibar Pudding) 230 ml NOW PRN Radiology Procedure 11/27/19 16:00 11/30/19 15:57 Chlorhexidine Gluconate (Shonna-Hex 2%) 1 applic DAILY@2000 TOPIC 11/26/19 20:00 02/24/20 19:59 11/29/19 21:45 Docusate Sodium (Colace) 100 mg THREE TIMES A DAY ORAL 11/28/19 18:00 12/28/19 17:59 11/30/19 09:39 Epoetin Zay (Epoetin Zay(ESRD on dialysis)) 10,000 unit TUE-TUE-TUE SUBQ 11/26/19 21:00 02/24/20 20:59 11/28/19 20:57 Linezolid (Zyvox) 600 mg EVERY 12 HOURS ORAL 11/26/19 12:00 12/05/19 23:59 11/30/19 09:39 Lorazepam (Ativan 2mg/ml 1ml) 1 mg Q4H PRN IV For Anxiety 11/25/19 18:45 12/02/19 10:44 Morphine Sulfate (Morphine Sulfate) 1 mg Q8H PRN IVP For Pain 11/25/19 18:30 12/02/19 18:29 Pantoprazole (Protonix) 40 mg EVERY 12 HOURS ORAL 11/28/19 21:00 12/28/19 20:59 11/30/19 09:39 Piperacillin Sod/ Tazobactam Sod 2.25 gm/Dextrose 55 ml @ 110 mls/hr Q8HR@0200,1000,1800 IV 11/26/19 02:00 12/01/19 09:59 11/30/19 09:33 Polyethylene Glycol (Miralax) 17 gm BEDTIME ORAL 11/27/19 21:00 12/27/19 20:59 11/29/19 21:00 Sevelamer Carbonate (Renvela) 1,600 mg THREE TIMES A DAY ORAL 11/28/19 18:00 02/26/20 17:59 11/30/19 09:39 Thiamine HCl (Vitamin B1) 100 mg DAILY ORAL 11/29/19 09:00 12/29/19 08:59 11/30/19 09:39 Britt Jimenez M.D. Nov 30, 2019 11:24
[2019-11-30 11:27] LABS: HEMATOCRIT 24.6 % (37.0-47.0); HEMOGLOBIN 7.7 G/DL (12.0-16.0); MEAN CORPUSCULAR VOLUME 80 FL (80-99); PLATELET COUNT 88 K/UL (150-450); RED BLOOD COUNT 3.09 M/UL (4.20-5.40)
[2019-11-30 11:28] LABS: WHITE BLOOD COUNT 29.6 K/UL (4.8-10.8)
[2019-11-30 12:00] VITALS: BP 102/53
--- NOTE | 2019-11-30 13:15 | Diagnostic Imaging Report ---
Procedure: XRAY Chest 1v Reason for study: Reason For Exam: SOB Comparison films: 11/26/2019. FINDINGS: A single one view chest is obtained. Vascularity is normal. Bilateral alveolar airspace disease unchanged right greater than left. Cardiac and mediastinal silhouette are within normal limits. CP angles are sharp. The bony thorax appear unremarkable. IMPRESSION: NO SIGNIFICANT CHANGE COMPARED TO PREVIOUS EXAM.
[2019-11-30] MEDS ORDERED: Vancomycin 1.25gm/NS Premix IVPB SCH (14:00)
[2019-11-30 16:00] VITALS: BP 110/52
[2019-11-30 17:02] LABS: HEMATOCRIT 21.2 % (37.0-47.0); MEAN CORPUSCULAR VOLUME 79 FL (80-99); PLATELET COUNT 78 K/UL (150-450); RED CELL DISTRIBUTION WIDTH 26.1 % (11.6-14.8)
[2019-11-30 17:35] LABS: HEMOGLOBIN 6.5 G/DL (12.0-16.0); WHITE BLOOD COUNT 31.4 K/UL (4.8-10.8)
--- NOTE | 2019-11-30 18:06 | Cardiology Progress Note ---
Assessment/Plan Assessment/Plan 1. Acute diastolic congestive heart failure, aggressive hemodialysis for decrease of preload. 2. Anemia of blood loss likely due to vaginal bleed. 3. Alcohol abuse. 4. Acute kidney injury. 5. Dyslipidemia with low HDL. 6. Sepsis with B/L PNA, COVID-19 negative. Subjective Subjective Sinus rhythm at rate of 84. Venturi mask, FIO2 of 40%. Objective Last 24 Hour Vital Signs Date Time Temp Pulse Resp B/P (MAP) Pulse Ox O2 Delivery O2 Flow Rate FiO2 11/30/19 16:00 97.2 84 23 110/52 (71) 99 11/30/19 16:00 Venturi Mask 8.0 11/30/19 16:00 84 11/30/19 16:00 8.0 40 11/30/19 12:00 85 11/30/19 12:00 97.3 83 23 102/53 (69) 99 11/30/19 12:00 Venturi Mask 8.0 11/30/19 12:00 8.0 40 11/30/19 11:28 85 11/30/19 08:00 84 11/30/19 08:00 97.3 84 23 99/53 (68) 99 11/30/19 08:00 8.0 40 11/30/19 08:00 Venturi Mask 8.0 11/30/19 07:00 96 Venturi Mask 10.0 45 11/30/19 04:00 98.4 84 32 99/57 (71) 97 11/30/19 04:00 Venturi Mask 8.0 11/30/19 04:00 8.0 45 11/30/19 03:34 94 11/30/19 00:00 Venturi Mask 8.0 11/30/19 00:00 84 11/30/19 00:00 98.3 85 24 122/65 (84) 97 11/29/19 20:00 Venturi Mask 8.0 11/29/19 20:00 97.5 77 24 112/51 (71) 100 11/29/19 20:00 8.0 45 11/29/19 19:37 75 11/29/19 19:18 95 Venturi Mask 10.0 45 Intake and Output 11/29/19 11/30/19 19:00 07:00 Intake Total 1210 ml 355 ml Output Total 500 ml 50 ml Balance 710 ml 305 ml Intake Oral 960 ml 300 ml IV Total 55 ml Blood Product 250 ml Output Urine Total 100 ml 50 ml Estimated Blood Loss 400 ml # Bowel Movements 2 2D Echo: LVEF 65%, RVSP 58 mmHg, Grade I LVDD Laboratory Tests Test 11/29/19 22:45 11/30/19 05:00 11/30/19 11:00 11/30/19 16:30 White Blood Count 28.8 K/UL (4.8-10.8) *H 27.2 K/UL (4.8-10.8) *H 29.6 K/UL (4.8-10.8) *H 31.4 K/UL (4.8-10.8) *H Red Blood Count 3.23 M/UL (4.20-5.40) L 3.10 M/UL (4.20-5.40) L 3.09 M/UL (4.20-5.40) L 2.70 M/UL (4.20-5.40) L Hemoglobin 8.1 G/DL (12.0-16.0) #L 7.7 G/DL (12.0-16.0) L 7.7 G/DL (12.0-16.0) L 6.5 G/DL (12.0-16.0) *L Hematocrit 25.1 % (37.0-47.0) L 24.2 % (37.0-47.0) L 24.6 % (37.0-47.0) L 21.2 % (37.0-47.0) L Mean Corpuscular Volume 78 FL (80-99) L 78 FL (80-99) L 80 FL (80-99) 79 FL (80-99) L Mean Corpuscular Hemoglobin 25.0 PG (27.0-31.0) L 25.0 PG (27.0-31.0) L 25.0 PG (27.0-31.0) L 24.3 PG (27.0-31.0) L Mean Corpuscular Hemoglobin Concent 32.2 G/DL (32.0-36.0) 31.9 G/DL (32.0-36.0) L 31.4 G/DL (32.0-36.0) L 30.9 G/DL (32.0-36.0) L Red Cell Distribution Width 26.4 % (11.6-14.8) H 24.4 % (11.6-14.8) H 26.0 % (11.6-14.8) H 26.1 % (11.6-14.8) H Platelet Count 91 K/UL (150-450) L 90 K/UL (150-450) L 88 K/UL (150-450) L 78 K/UL (150-450) L Mean Platelet Volume 7.7 FL (6.5-10.1) 7.1 FL (6.5-10.1) 7.1 FL (6.5-10.1) 7.6 FL (6.5-10.1) Neutrophils (%) (Auto) % (45.0-75.0) % (45.0-75.0) % (45.0-75.0) % (45.0-75.0) Lymphocytes (%) (Auto) % (20.0-45.0) % (20.0-45.0) % (20.0-45.0) % (20.0-45.0) Monocytes (%) (Auto) % (1.0-10.0) % (1.0-10.0) % (1.0-10.0) % (1.0- 10.0) Eosinophils (%) (Auto) % (0.0-3.0) % (0.0-3.0) % (0.0-3.0) % (0.0-3.0 ) Basophils (%) (Auto) % (0.0-2.0) % (0.0-2.0) % (0.0-2.0) % (0.0-2.0) Differential Total Cells Counted 100 100 100 Neutrophils % (Manual) 84 % (45-75) H 94 % (45-75) H 86 % (45-75) H Pending Lymphocytes % (Manual) 10 % (20-45) L 3 % (20-45) L 4 % (20-45) L Pending Monocytes % (Manual) 6 % (1-10) 3 % (1-10) 5 % (1-10) Eosinophils % (Manual) 0 % (0-3) 0 % (0-3) 1 % (0-3) Basophils % (Manual) 0 % (0-2) 0 % (0-2) 0 % (0-2) Band Neutrophils 0 % (0-8) 0 % (0-8) 4 % (0-8) Platelet Estimate Decreased L Decreased L Decreased L Pending Platelet Morphology Normal Normal Normal Pending Polychromasia 2+ 2+ Hypochromasia 1+ 1+ Anisocytosis 3+ 3+ Microcytosis 1+ Sodium Level 139 MMOL/L (136-145) Potassium Level 5.2 MMOL/L (3.5-5.1) H Chloride Level 101 MMOL/L (98-107) Carbon Dioxide Level 29 MMOL/L (21-32) Anion Gap 10 mmol/L (5-15) Blood Urea Nitrogen 73 mg/dL (7-18) H Creatinine 7.7 MG/DL (0.55-1.30) H Estimat Glomerular Filtration Rate 5.2 mL/min (>60) Glucose Level 93 MG/DL (74-106) Calcium Level 7.2 MG/DL (8.5-10.1) L Phosphorus Level 7.6 MG/DL (2.5-4.9) H Magnesium Level 2.4 MG/DL (1.8-2.4) Total Bilirubin 0.5 MG/DL (0.2-1.0) Aspartate Amino Transf (AST/SGOT) 32 U/L (15-37) Alanine Aminotransferase (ALT/SGPT) 22 U/L (12-78) Alkaline Phosphatase 85 U/L (46-116) Total Protein 4.7 G/DL (6.4-8.2) L Albumin 1.3 G/DL (3.4-5.0) L Globulin 3.4 g/dL Albumin/Globulin Ratio 0.4 (1.0-2.7) L Random Vancomycin Level 7.3 ug/mL TB Test (T-Spot) Pending TB Test Nil Control (T-Spot) Pending TB Test Panel A (T-Spot) Pending TB Test Panel B (T-Spot) Pending TB Test Positive Control (T-Spot) Pending Microbiology Date/Time Source Procedure Growth Status 11/29/19 00:30 Urine,Clean Catch Urine Culture - Preliminary NO GROWTH Resulted Objective HEENT: Atraumatic, normocephalic. ENT, pupils are equal, round, and reactive to light and accommodation. Positive pallor. NECK: Cannot assess JVP due to obesity and short neck and current use of BiPAP mask. No carotid bruit. Carotid upstrokes 2+ bilaterally. CARDIOVASCULAR: Normal S1, S2. Regular rate and rhythm. No murmurs, gallops, or rubs. PMI is at fourth intercostal space in the midclavicular line. LUNGS: Bilateral crackles, mostly in the bases. ABDOMEN: Soft, nondistended. No hepatosplenomegaly. Positive bowel sounds. EXTREMITIES: No evidence of edema, clubbing, or cyanosis. Adryan Lopez MD Nov 30, 2019 18:06
[2019-11-30 20:00] VITALS: BP 98/48
[2019-11-30] MEDS: Dyna-Hex 2% Top Sol 2oz TOPIC SCH (20:51)
[2019-11-30] MEDS: Miralax 17gm pkt ORAL SCH (20:51)
[2019-11-30] MEDS: Epoetin Alfa-EPBX(ESRD on dialysis)10,000 unit/ml vial SUBQ SCH (21:21)
[2019-12-01] VITALS: BP 111/50
[2019-12-01] MEDS: Piperacillin/Tazobactam 2.25 GM in D5W 55 ML IV SCH (01:50)
[2019-12-01 04:00] VITALS: BP 97/57
[2019-12-01 06:10] LABS: HEMATOCRIT 28.1 % (37.0-47.0); MEAN CORPUSCULAR VOLUME 83 FL (80-99); PLATELET COUNT 76 K/UL (150-450); RED BLOOD COUNT 3.38 M/UL (4.20-5.40); RED CELL DISTRIBUTION WIDTH 21.5 % (11.6-14.8)
[2019-12-01 06:21] LABS: WHITE BLOOD COUNT 35.1 K/UL (4.8-10.8)
[2019-12-01 06:41] LABS: ALANINE AMINOTRANSFERASE 18 U/L (12-78); ALBUMIN 1.3 G/DL (3.4-5.0); ALBUMIN/GLOBULIN RATIO 0.4 (1.0-2.7); ALKALINE PHOSPHATASE 102 U/L (46-116); ANION GAP 13 mmol/L (5-15); ASPARTATE AMINO TRANSFERASE 34 U/L (15-37); BILIRUBIN,TOTAL 0.6 MG/DL (0.2-1.0); BLOOD UREA NITROGEN 77 mg/dL (7-18); CALCIUM 7.3 MG/DL (8.5-10.1); CARBON DIOXIDE 25 MMOL/L (21-32); CHLORIDE 99 MMOL/L (98-107); CREATININE 7.5 MG/DL (0.55-1.30); PHOSPHORUS 8.1 MG/DL (2.5-4.9); POTASSIUM 5.2 MMOL/L (3.5-5.1); SODIUM 137 MMOL/L (136-145)
[2019-12-01 08:00] VITALS: BP 116/58
[2019-12-01] MEDS: Thiamine 100mg tab ORAL SCH (08:40)
[2019-12-01] MEDS: Docusate 100mg cap ORAL SCH ×3 (08:40→17:40)
--- NOTE | 2019-12-01 09:07 | Surgery Progress Note ---
Surgery Progress Note Subjective Procedure Performed right femoral temporary Hemodialysis catheter insertion Additional Comments awake doing well HD line clotted and needed change today Objective Last 24 Hour Vital Signs Date Time Temp Pulse Resp B/P (MAP) Pulse Ox O2 Delivery O2 Flow Rate FiO2 12/01/19 08:00 96 12/01/19 08:00 97.0 94 25 116/58 (77) 97 12/01/19 08:00 Venturi Mask 8.0 12/01/19 08:00 8.0 40 12/01/19 05:13 Venturi Mask 8.0 12/01/19 04:00 8.0 40 12/01/19 04:00 98.0 77 20 97/57 (70) 100 12/01/19 04:00 Venturi Mask 8.0 12/01/19 03:37 91 12/01/19 00:00 90 12/01/19 00:00 98.2 85 20 111/50 (70) 100 12/01/19 00:00 Venturi Mask 8.0 11/30/19 20:00 Venturi Mask 8.0 11/30/19 20:00 8.0 40 11/30/19 20:00 87 11/30/19 20:00 98.0 83 20 98/48 (65) 100 11/30/19 19:12 93 Venturi Mask 10.0 45 11/30/19 16:00 97.2 84 23 110/52 (71) 99 11/30/19 16:00 Venturi Mask 8.0 11/30/19 16:00 84 11/30/19 16:00 8.0 40 11/30/19 12:00 85 11/30/19 12:00 97.3 83 23 102/53 (69) 99 11/30/19 12:00 Venturi Mask 8.0 11/30/19 12:00 8.0 40 11/30/19 11:28 85 I&O Intake and Output 11/30/19 12/01/19 18:59 06:59 Intake Total 740 ml 710 ml Output Total 700 ml 700 ml Balance 40 ml 10 ml Intake Oral 740 ml IV Total 110 ml Blood Product 600 ml Output Urine Total 700 ml 700 ml Hemodialysis UF 0 ml Dressing: saturated Cardiovascular: RSR Respiratory: decreased breath sounds Abdomen: soft, non-tender, present bowel sounds Extremities: edema, no tenderness, no cyanosis Laboratory Tests Test 11/30/19 11:00 11/30/19 16:30 12/01/19 04:55 White Blood Count 29.6 K/UL (4.8-10.8) *H 31.4 K/UL (4.8-10.8) *H 35.1 K/UL (4.8-10.8) *H Red Blood Count 3.09 M/UL (4.20-5.40) L 2.70 M/UL (4.20-5.40) L 3.38 M/UL (4.20-5.40) L Hemoglobin 7.7 G/DL (12.0-16.0) L 6.5 G/DL (12.0-16.0) *L 9.0 G/DL (12.0-16.0) #L Hematocrit 24.6 % (37.0-47.0) L 21.2 % (37.0-47.0) L 28.1 % (37.0-47.0) #L Mean Corpuscular Volume 80 FL (80-99) 79 FL (80-99) L 83 FL (80-99) Mean Corpuscular Hemoglobin 25.0 PG (27.0-31.0) L 24.3 PG (27.0-31.0) L 26.6 PG (27.0-31.0) L Mean Corpuscular Hemoglobin Concent 31.4 G/DL (32.0-36.0) L 30.9 G/DL (32.0-36.0) L 31.9 G/DL (32.0-36.0) L Red Cell Distribution Width 26.0 % (11.6-14.8) H 26.1 % (11.6-14.8) H 21.5 % (11.6-14.8) H Platelet Count 88 K/UL (150-450) L 78 K/UL (150-450) L 76 K/UL (150-450) L Mean Platelet Volume 7.1 FL (6.5-10.1) 7.6 FL (6.5-10.1) 7.9 FL (6.5-10.1) Neutrophils (%) (Auto) % (45.0-75.0) % (45.0-75.0) % (45.0-75.0) Lymphocytes (%) (Auto) % (20.0-45.0) % (20.0-45.0) % (20.0-45.0) Monocytes (%) (Auto) % (1.0-10.0) % (1.0-10.0) % (1.0-10.0) Eosinophils (%) (Auto) % (0.0-3.0) % (0.0-3.0) % (0.0-3.0) Basophils (%) (Auto) % (0.0-2.0) % (0.0-2.0) % (0.0-2.0) Differential Total Cells Counted 100 100 Neutrophils % (Manual) 86 % (45-75) H 83 % (45-75) H Pending Lymphocytes % (Manual) 4 % (20-45) L 6 % (20-45) L Pending Monocytes % (Manual) 5 % (1-10) 5 % (1-10) Eosinophils % (Manual) 1 % (0-3) 1 % (0-3) Basophils % (Manual) 0 % (0-2) 0 % (0-2) Band Neutrophils 4 % (0-8) 5 % (0-8) Platelet Estimate Decreased L Decreased L Pending Platelet Morphology Normal Normal Pending Polychromasia 2+ 2+ Hypochromasia 1+ 2+ Anisocytosis 3+ 3+ Sodium Level 137 MMOL/L (136-145) Potassium Level 5.2 MMOL/L (3.5-5.1) H Chloride Level 99 MMOL/L (98-107) Carbon Dioxide Level 25 MMOL/L (21-32) Anion Gap 13 mmol/L (5-15) Blood Urea Nitrogen 77 mg/dL (7-18) H Creatinine 7.5 MG/DL (0.55-1.30) H Estimat Glomerular Filtration Rate 5.3 mL/min (>60) Glucose Level 72 MG/DL (74-106) L Calcium Level 7.3 MG/DL (8.5-10.1) L Phosphorus Level 8.1 MG/DL (2.5-4.9) H Magnesium Level 2.4 MG/DL (1.8-2.4) Total Bilirubin 0.6 MG/DL (0.2-1.0) Aspartate Amino Transf (AST/SGOT) 34 U/L (15-37) Alanine Aminotransferase (ALT/SGPT) 18 U/L (12-78) Alkaline Phosphatase 102 U/L (46-116) Total Protein 5.0 G/DL (6.4-8.2) L Albumin 1.3 G/DL (3.4-5.0) L Globulin 3.7 g/dL Albumin/Globulin Ratio 0.4 (1.0-2.7) L Plan Problems: (1) Anemia (2) Encephalopathy acute (3) Acute respiratory failure with hypoxia (4) Hyperkalemia (5) Sepsis Assessment & Plan: Leukocytosis anemia hyperkalemia abnormal labs HD catheter placed received dialysis and slowly potassium improved. Plan for repeat dialysis ordered. IV antibiotics per infectious disease Patient is alert awake but confused. Slowly improving No hematoma or bleeding identified Site looks clean We will continue with HD on a sure if renal function will improve may need permacath CT reviewed edema noted lymph nodes noted likely reactive Thank you for let me participate patient's care with follow with recommendations s/p filter placement stable acute blood loss anemia vaginal bleeding coags heme input transfuse prbc trend h/h will monitor for bleeding thank you HD line change 11/30 ABDOMEN: Liver: Unremarkable. Gallbladder and bile ducts: Unremarkable. No calcified stones. No ductal dilation. Pancreas: Unremarkable. No ductal dilation. Spleen: Unremarkable. No splenomegaly. Adrenals: Unremarkable. No mass. Kidneys and ureters: Bilateral low-grade hydronephrosis. No radiopaque stones in the urinary tract identified except for nonobstructing 3 mm stone in the inferior pole left kidney. Stomach and bowel: Scattered colonic diverticuli. No obstruction. No mucosal thickening. PELVIS: Appendix: No findings to suggest acute appendicitis. Bladder: The urinary bladder is decompressed by an indwelling Kaminski catheter No stones. Reproductive: Unremarkable as visualized. ABDOMEN and PELVIS: Intraperitoneal space: Unremarkable. No free air. No significant fluid collection. Bones/joints: No acute fracture. No dislocation. Soft tissues: Anasarca. Vasculature: Unremarkable. No abdominal aortic aneurysm. Lymph nodes: Enlarged left superficial inguinal lymph node measuring 2 cm short axis There are bilateral enlarged external iliac lymph nodes, measuring 2.9 cm x 5.1 cm on the left and 2.7 x 2.0 cm on the right. Other findings: Beam hardening from patient's abdominal girth degrades detail. IMPRESSION: 1. Enlarged pelvic lymph nodes could reflect reactive changes from cellulitis in the setting of generalized bony wall edema, or other acute inflammatory changes but neoplasm such as lymphomas not excluded. Correlate clinically. Ultrasound of the pelvis could be considered to help distinguish patient's ovaries from presumed pelvic adenopathy. 2. Mild bilateral hydronephrosis, with a Kaminski catheter in the urinary bladder. Correlate with bladder catheter function. DAILY ESTIMATED NEEDS: Needs based on obesity, ARF + HD/ 67kg abw 22-25 kcals/kg 2324-1649 total kcals 1.2-1.8 w/ HD g protein/kg 81-120 g total protein Fluids per MD NUTRITION DIAGNOSIS: Altered nutrition related lab values R/T ARF, pre-diabetes as evidenced by elev BUN (157 -> 76 trend down), elev creat (142 -> 7.8), elev phos (6.8), elev mag (2.5). A1C of 6.0 w/ elev BGs (154 173 146). CURRENT DIET:RENAL, soft easy chew w/ NTL PO DIET RECOMMENDATIONS: RENAL, CCHO LOW/ texture per SUPERVISOR TYPE BAR AND SEGMENT ADDITIONAL RECOMMENDATIONS: * Calibrated bedscale wt for accurate CBW- w/ added p200 mattress + pump * Phos binders w/ meals * Monitor renal fxn and continuity of HD- creat trending down * Monitor BGs, need for hypoglycemics -> rec carb controlled diet for BG and wt control. * Monitor PO intake and tolerance closely * Nephrovite x 1 as supplement (6) ARF (acute renal failure) (7) CAP (community acquired pneumonia) (8) Serum lipase elevation (9) Obesity (BMI 30-39.9) Angelo Naik Dec 01, 2019 09:07
--- NOTE | 2019-12-01 09:09 | Operative Note - PDOC ---
Operative Note Operative Note Pre-op Diagnosis: hyperkalemia renal insufficiency sepsis Procedure: right femoral temporary Hemodialysis catheter insertion Post-op Diagnosis: same as pre-op Surgeon: cici naik MD Anesthesia: local Specimen: none Complications: none Condition: unstable Estimated Blood Loss: minimal Drains: none Implant(s) used?: No Indications for Procedure 6-year-old female coagulopathy sepsis respiratory insufficiency recent hemorrhage renal insufficiency on dialysis through temporary right femoral line. The line was doing well but declot yesterday doing HD about 40 minutes. Flow identified but sluggish. Likely clot. Needing to be changed. Consent obtained from patient. Description of Procedure Given patient's coagulopathy bleeding overall condition edema and difficult stick with a prior functional line clean no issues only slow flow likely clot requiring change decision made to rewire the line. The infusion port was cut guidewire was placed line was removed. New 30 cm temporal hemodialysis line was placed. All ports flushed and aspirated appropriately. All precautions were taken site was cleaned with chlorhexidine before and after dressings were applied line sutured in place patient taught procedure well Cici Naik Dec 01, 2019 09:09
--- NOTE | 2019-12-01 10:04 | Pulmonology Progress Note ---
Ant Brewsteret [employer] C[employer]TER 12/01/19 1004: Subjective ROS Limited/Unobtainable: Yes Allergies: Coded Allergies: No Known Allergies (Unverified , 11/24/19) Subjective episode of large vaginal bleeding 11/28 afternoon Hgb down to 6.5 11/29 s/p blood transfusion , Hgb 9.0 this an back to 40% VM no fevers, persistent leucocytosis with trend up still some SOB, no CP + gen fatigue, weakness CXR 11/29 w/out much changes earlier this am s/p removal of clotted R femoral HD catheter and placement of the new one via R femoral vein by gen surgeon on the bedside Objective Last 24 Hour Vital Signs Date Time Temp Pulse Resp B/P (MAP) Pulse Ox O2 Delivery O2 Flow Rate FiO2 12/01/19 08:00 96 12/01/19 08:00 97.0 94 25 116/58 (77) 97 12/01/19 08:00 Venturi Mask 8.0 12/01/19 08:00 8.0 40 12/01/19 05:13 Venturi Mask 8.0 12/01/19 04:00 8.0 40 12/01/19 04:00 98.0 77 20 97/57 (70) 100 12/01/19 04:00 Venturi Mask 8.0 12/01/19 03:37 91 12/01/19 00:00 90 12/01/19 00:00 98.2 85 20 111/50 (70) 100 12/01/19 00:00 Venturi Mask 8.0 11/30/19 20:00 Venturi Mask 8.0 11/30/19 20:00 8.0 40 11/30/19 20:00 87 11/30/19 20:00 98.0 83 20 98/48 (65) 100 11/30/19 19:12 93 Venturi Mask 10.0 45 11/30/19 16:00 97.2 84 23 110/52 (71) 99 11/30/19 16:00 Venturi Mask 8.0 11/30/19 16:00 84 11/30/19 16:00 8.0 40 11/30/19 12:00 85 11/30/19 12:00 97.3 83 23 102/53 (69) 99 11/30/19 12:00 Venturi Mask 8.0 11/30/19 12:00 8.0 40 11/30/19 11:28 85 Intake and Output 11/30/19 12/01/19 19:00 07:00 Intake Total 740 ml 710 ml Output Total 700 ml 700 ml Balance 40 ml 10 ml Intake Oral 740 ml IV Total 110 ml Blood Product 600 ml Output Urine Total 700 ml 700 ml Hemodialysis UF 0 ml Objective General Appearance: Setswana speaking, in NAD, calm, obese female Lines, tubes and drains: peripheral, also CL via R femoral ->HD catheter HEENT: normocephalic, atraumatic, anicteric, mucous membranes moist Neck: non-tender, supple Respiratory/Chest: no accessory muscle use, few crackles at bases Cardiovascular/Chest: normal peripheral pulses, normal rate, regular rhythm Abdomen: normal bowel sounds, soft . mild distention and obese, non tender Extremities: normal range of motion, non-tender, no calf tenderness, +1 edema BLE Neurologic: no motor/sensory deficits, alert, responsive but somewhat confused Musculoskeletal: normal muscle bulk Microbiology Date/Time Source Procedure Growth Status 11/29/19 00:30 Urine,Clean Catch Urine Culture - Final NO GROWTH AFTER 48 HOURS Complete Laboratory Tests 11/30/19 11:00: White Blood Count 29.6*H, Red Blood Count 3.09L, Hemoglobin 7.7L, Hematocrit 24.6L, Mean Corpuscular Volume 80, Mean Corpuscular Hemoglobin 25.0L, Mean Corpuscular Hemoglobin Concent 31.4L, Red Cell Distribution Width 26.0H, Platelet Count 88L, Mean Platelet Volume 7.1, Neutrophils (%) (Auto) , Lymphocytes (%) (Auto) , Monocytes (%) (Auto) , Eosinophils (%) (Auto) , Basophils (%) (Auto) , Differential Total Cells Counted 100, Neutrophils % ( Manual) 86H, Lymphocytes % (Manual) 4L, Monocytes % (Manual) 5, Eosinophils % ( Manual) 1, Basophils % (Manual) 0, Band Neutrophils 4, Platelet Estimate DecreasedL, Platelet Morphology Normal, Polychromasia 2+, Hypochromasia 1+, Anisocytosis 3+ 11/30/19 16:30: White Blood Count 31.4*H, Red Blood Count 2.70L, Hemoglobin 6.5*L, Hematocrit 21.2L, Mean Corpuscular Volume 79L, Mean Corpuscular Hemoglobin 24.3L, Mean Corpuscular Hemoglobin Concent 30.9L, Red Cell Distribution Width 26.1H, Platelet Count 78L, Mean Platelet Volume 7.6, Neutrophils (%) (Auto) , Lymphocytes (%) (Auto) , Monocytes (%) (Auto) , Eosinophils (%) (Auto) , Basophils (%) (Auto) , Differential Total Cells Counted 100, Neutrophils % ( Manual) 83H, Lymphocytes % (Manual) 6L, Monocytes % (Manual) 5, Eosinophils % ( Manual) 1, Basophils % (Manual) 0, Band Neutrophils 5, Platelet Estimate DecreasedL, Platelet Morphology Normal, Polychromasia 2+, Hypochromasia 2+, Anisocytosis 3+ 12/01/19 04:55: White Blood Count 35.1*H, Red Blood Count 3.38L, Hemoglobin 9.0#L, Hematocrit 28.1#L, Mean Corpuscular Volume 83, Mean Corpuscular Hemoglobin 26.6L, Mean Corpuscular Hemoglobin Concent 31.9L, Red Cell Distribution Width 21.5H, Platelet Count 76L, Mean Platelet Volume 7.9, Neutrophils (%) (Auto) , Lymphocytes (%) (Auto) , Monocytes (%) (Auto) , Eosinophils (%) (Auto) , Basophils (%) (Auto) , Neutrophils % (Manual) [Pending], Lymphocytes % (Manual) [Pending], Platelet Estimate [Pending], Platelet Morphology [Pending], Sodium Level 137, Potassium Level 5.2H, Chloride Level 99, Carbon Dioxide Level 25, Anion Gap 13, Blood Urea Nitrogen 77H, Creatinine 7.5H, Estimat Glomerular Filtration Rate 5.3, Glucose Level 72L, Calcium Level 7.3L, Phosphorus Level 8.1H, Magnesium Level 2.4, Total Bilirubin 0.6, Aspartate Amino Transf (AST/SGOT ) 34, Alanine Aminotransferase (ALT/SGPT) 18, Alkaline Phosphatase 102, Total Protein 5.0L, Albumin 1.3L, Globulin 3.7, Albumin/Globulin Ratio 0.4L Current Medications Medications (Trade) Dose Ordered Sig/Brina Route PRN Reason Start Time Stop Time Status Last Admin Dose Admin Acetaminophen (Tylenol) 650 mg Q8H PRN NG Mild Pain (Pain Scale 1-3) 11/27/19 08:30 12/27/19 08:29 Acetaminophen/ Hydrocodone Bitart ([employer] 10/325) 1 tab Q8H PRN ORAL Severe Pain (Pain Scale 7-10) 11/27/19 08:30 12/04/19 08:29 11/29/19 21:46 Acetaminophen/ Hydrocodone Bitart ([employer] 5/325) 1 tab Q8H PRN ORAL Moderate Pain (Pain Scale 4-6) 11/27/19 08:30 12/04/19 08:29 11/30/19 22:43 Chlorhexidine Gluconate (Shonna-Hex 2%) 1 applic DAILY@2000 TOPIC 11/26/19 20:00 02/24/20 19:59 11/30/19 20:51 Docusate Sodium (Colace) 100 mg THREE TIMES A DAY ORAL 11/28/19 18:00 12/28/19 17:59 12/01/19 08:40 Epoetin Zay (Epoetin Zay(ESRD on dialysis)) 10,000 unit -TUE SUBQ 11/26/19 21:00 02/24/20 20:59 11/30/19 21:21 Lorazepam (Ativan 2mg/ml 1ml) 1 mg Q4H PRN IV For Anxiety 11/25/19 18:45 12/02/19 10:44 Morphine Sulfate (Morphine Sulfate) 1 mg Q8H PRN IVP For Pain 11/25/19 18:30 12/02/19 18:29 Pantoprazole (Protonix) 40 mg EVERY 12 HOURS ORAL 11/28/19 21:00 12/28/19 20:59 12/01/19 08:40 Piperacillin Sod/ Tazobactam Sod 2.25 gm/Dextrose 55 ml @ 110 mls/hr Q8HR@0200,1000,1800 IV 11/26/19 02:00 12/01/19 09:59 12/01/19 01:50 Polyethylene Glycol (Miralax) 17 gm BEDTIME ORAL 11/27/19 21:00 12/27/19 20:59 11/30/19 20:51 Sevelamer Carbonate (Renvela) 1,600 mg THREE TIMES A DAY ORAL 11/28/19 18:00 02/26/20 17:59 12/01/19 08:40 Thiamine HCl (Vitamin B1) 100 mg DAILY ORAL 11/29/19 09:00 12/29/19 08:59 12/01/19 08:40 Vancomycin HCl (Vanco pharmacy to dose) 1 ea DAILY PRN MISC Per rx protocol 11/30/19 11:30 12/30/19 11:29 Assessment/Plan Assessment/Plan ASSESSMENT Sepsis Acute hypoxemic respiratory failure - Acute toxic metabolic encephalopathy ( multifactorial due to ARF, sepsis)- improving Acute renal failure , requiring start of HD MRSA bilateral PNA Acute DVT LLE common femoral to proximal superficial veins , r/o RE-NGT Possible UTI Hyperkalemia Severe pulmonary HTN Anemia Severe postmenopausal bleeding , with pelvic LAD; ? malignancy Elevated lipase, probably pancreatitis Pelvic LAD Anasarca History of EtOH abuse Possible psychiatric disorder PLAN OF CARE LEOBARDO supplemental O2 titrate to keep sat above 92%, resp status improved after HD, now back on O2 via VM fup with CXR 11/29 w/pit muuch changes : Bilateral alveolar airspace disease unchanged right greater than left. pulm toilet SCX + MRSA hx of recent resp illness abx per ID recs-> Zosyn completing today and Vanco persistent leukocytosis with trend up , no fevers CTA chest with evidence of PNA initial SOB and resp distress were most likely due to fluid overload 2 to acute renal failure, and now acute DVT , r/o PE -> NGT Venous Duplex BLE + acute DVT LEFT COMMON FEMORAL TO PROXIMAL SUPERFICIAL FEMORAL VEINs. unable to start a/coagulation given Hgb 7.3 stat VQ scan 11/25 with intermediate probability for pulmonary embolism. s/p IVC filter 11/25 CTA chest -> no PE + BL infiltrates and RLL consolidation +mediastinal adenopathy concern for malignancy and elevated WBC ? tumor burden [employer] signed out for now fup with further onco recs ? LP aspir precautions VSS pending s/p PRBC transfusion monitor HH with goal to keep Hg above 7, on EPO and IV iron anemia w/up noted stool OB NGT x 3 monitor PLT count rapid COVID 19 11/23 x 2 - NGT rapid COVID 19 11/24 NGT BCX 11/23 NGTD ? UTI UCX 11/25 NGT SCX 11/25 + MRSA UCX 11/28 NGT TB spot pending further management of ARF and hyper K as per deputy director of public works - bicarb stabilized s/p HD via R fem temp HD catheter, placed by surgeon creat trending down monitor volumes permanent HD catheter placement pending ECHO with pEF 65% and RVSP of 58 c/w severe pulm HTN cardiac monitoring-SR lipase trended down to normal hep panel NGT HIV nonreactive abd US, given enlarged lymph nodes-> fatty liver with a small septated cyst. Gallstones. The spleen, left kidney, CBD, pancreas ,aorta and cava not well defined. lipase and AST trending down CT head -no acute IC patholgoy pelvic US noted episode of large postmenopausal bleeding 11/28 [employer] eval appreciated not a candidate for surgical interventions as this time needs hysteroscopy, D&C and endometrium ablation , will need medical stabilization and clearance prior to surgery [employer] was unable to start Provera given acute DVT at this time medically optimize, monitor closely, check counts thank you for consult Reece Peters MD 12/01/19 1241: Subjective Allergies: Coded Allergies: No Known Allergies (Unverified , 11/24/19) Assessment/Plan Assessment/Plan Patient seen and examined with F[employer]RIC CUTTER. Agree with above A&P as it reflects our joint deliberations. Carlita Brewster NP Dec 01, 2019 10:04 Reece Peters MD Dec 01, 2019 12:41
--- NOTE | 2019-12-01 10:15 | General Progress Note ---
Assessment/Plan Assessment/Plan: S, O: pt is awake , seems comfortable, seen and examined in step down unit. in mild sob. on Venturi mask PHYSICAL EXAMINATION:HEAD AND NECK: Atraumatic and normocephalic. CHEST: Diffuse bronchial breathing sounds.HEART: S1 and S2. Regular rate and rhythm. ABDOMEN: Soft. No organomegaly. Protuberant. No tenderness. MUSCULOSKELETAL: Right inguinal HD- access noted, No gross lateralized motor deficit. It is limited examination as the patient is not cooperative. b/l le edema and tenderness NEUROLOGIC: The patient is delirious. DIAGNOSTIC AND LABORATORY DATA: Imaging, Chest -CT dated November 26 Labs, dated November 30 reviewed ASSESSMENT: 1. Severe sepsis. 2. PNA- Bilateral 3. Hypoxemic respiratory failure. 3. Acute Anemia 5. Acute Menometrorrhagia 6. Hyperkalemia. 4. End-stage renal disease. 5. CHF, likely diagnosis. 6. Abnormal blood sugar. 7. Acute on chronic Microcytic anemia. 8. GI and DVT prophylaxis. 9. LE DVT- Bilateral PLAN OF CARE: contra indication for anticoagulation . D/W Hemonch regarding IVC notes form ID, Nephrology reviewed S/P IVC filter placement. Given the importance of diagnosis of PE in the risk stratification decision for assisted ATC, will proceed with Chest CT-Angio No additional ATC at this time, pending stool occult test I called the daughter Piper and updated her about over medical cnd on November 27 around 2 PM D/w Dr Pedersen, Oral Communication Instructor. Agree for current conservative mgt. Not medically stable for surgical or aggressive methods in controlling the Menometrorrhagia favorable response to PRBC-transfusion S/P insertion of the new temp- HD access in the groin Subjective Allergies: Coded Allergies: No Known Allergies (Unverified , 11/24/19) Objective Last 24 Hour Vital Signs Date Time Temp Pulse Resp B/P (MAP) Pulse Ox O2 Delivery O2 Flow Rate FiO2 12/01/19 08:00 96 12/01/19 08:00 97.0 94 25 116/58 (77) 97 12/01/19 08:00 Venturi Mask 8.0 12/01/19 08:00 8.0 40 12/01/19 05:13 Venturi Mask 8.0 12/01/19 04:00 8.0 40 12/01/19 04:00 98.0 77 20 97/57 (70) 100 12/01/19 04:00 Venturi Mask 8.0 12/01/19 03:37 91 12/01/19 00:00 90 12/01/19 00:00 98.2 85 20 111/50 (70) 100 12/01/19 00:00 Venturi Mask 8.0 11/30/19 20:00 Venturi Mask 8.0 11/30/19 20:00 8.0 40 11/30/19 20:00 87 11/30/19 20:00 98.0 83 20 98/48 (65) 100 11/30/19 19:12 93 Venturi Mask 10.0 45 11/30/19 16:00 97.2 84 23 110/52 (71) 99 11/30/19 16:00 Venturi Mask 8.0 11/30/19 16:00 84 11/30/19 16:00 8.0 40 11/30/19 12:00 85 11/30/19 12:00 97.3 83 23 102/53 (69) 99 11/30/19 12:00 Venturi Mask 8.0 11/30/19 12:00 8.0 40 11/30/19 11:28 85 Intake and Output 11/30/19 12/01/19 19:00 07:00 Intake Total 740 ml 710 ml Output Total 700 ml 700 ml Balance 40 ml 10 ml Intake Oral 740 ml IV Total 110 ml Blood Product 600 ml Output Urine Total 700 ml 700 ml Hemodialysis UF 0 ml Laboratory Tests 11/30/19 11:00: White Blood Count 29.6*H, Red Blood Count 3.09L, Hemoglobin 7.7L, Hematocrit 24.6L, Mean Corpuscular Volume 80, Mean Corpuscular Hemoglobin 25.0L, Mean Corpuscular Hemoglobin Concent 31.4L, Red Cell Distribution Width 26.0H, Platelet Count 88L, Mean Platelet Volume 7.1, Neutrophils (%) (Auto) , Lymphocytes (%) (Auto) , Monocytes (%) (Auto) , Eosinophils (%) (Auto) , Basophils (%) (Auto) , Differential Total Cells Counted 100, Neutrophils % ( Manual) 86H, Lymphocytes % (Manual) 4L, Monocytes % (Manual) 5, Eosinophils % ( Manual) 1, Basophils % (Manual) 0, Band Neutrophils 4, Platelet Estimate DecreasedL, Platelet Morphology Normal, Polychromasia 2+, Hypochromasia 1+, Anisocytosis 3+ 11/30/19 16:30: White Blood Count 31.4*H, Red Blood Count 2.70L, Hemoglobin 6.5*L, Hematocrit 21.2L, Mean Corpuscular Volume 79L, Mean Corpuscular Hemoglobin 24.3L, Mean Corpuscular Hemoglobin Concent 30.9L, Red Cell Distribution Width 26.1H, Platelet Count 78L, Mean Platelet Volume 7.6, Neutrophils (%) (Auto) , Lymphocytes (%) (Auto) , Monocytes (%) (Auto) , Eosinophils (%) (Auto) , Basophils (%) (Auto) , Differential Total Cells Counted 100, Neutrophils % ( Manual) 83H, Lymphocytes % (Manual) 6L, Monocytes % (Manual) 5, Eosinophils % ( Manual) 1, Basophils % (Manual) 0, Band Neutrophils 5, Platelet Estimate DecreasedL, Platelet Morphology Normal, Polychromasia 2+, Hypochromasia 2+, Anisocytosis 3+ 12/01/19 04:55: White Blood Count 35.1*H, Red Blood Count 3.38L, Hemoglobin 9.0#L, Hematocrit 28.1#L, Mean Corpuscular Volume 83, Mean Corpuscular Hemoglobin 26.6L, Mean Corpuscular Hemoglobin Concent 31.9L, Red Cell Distribution Width 21.5H, Platelet Count 76L, Mean Platelet Volume 7.9, Neutrophils (%) (Auto) , Lymphocytes (%) (Auto) , Monocytes (%) (Auto) , Eosinophils (%) (Auto) , Basophils (%) (Auto) , Neutrophils % (Manual) [Pending], Lymphocytes % (Manual) [Pending], Platelet Estimate [Pending], Platelet Morphology [Pending], Sodium Level 137, Potassium Level 5.2H, Chloride Level 99, Carbon Dioxide Level 25, Anion Gap 13, Blood Urea Nitrogen 77H, Creatinine 7.5H, Estimat Glomerular Filtration Rate 5.3, Glucose Level 72L, Calcium Level 7.3L, Phosphorus Level 8.1H, Magnesium Level 2.4, Total Bilirubin 0.6, Aspartate Amino Transf (AST/SGOT ) 34, Alanine Aminotransferase (ALT/SGPT) 18, Alkaline Phosphatase 102, Total Protein 5.0L, Albumin 1.3L, Globulin 3.7, Albumin/Globulin Ratio 0.4L Height (Feet): 5 Height (Inches): 4.00 Weight (Pounds): 243 Rebecca Schroeder MD Dec 01, 2019 10:15
[2019-12-01 12:00] VITALS: BP 108/61
--- NOTE | 2019-12-01 12:25 | Nephrology Progress Note ---
Assessment/Plan Problem List: (1) ARF (acute renal failure) (2) Sepsis (3) CAP (community acquired pneumonia) (4) Hyperkalemia (5) Encephalopathy acute (6) Anemia (7) Alcohol abuse Assessment: Long history as per daughter (8) Serum lipase elevation (9) Obesity (BMI 30-39.9) (10) Fatty liver Assessment Acute renal failure and hyperkalemia Most likely underlying chronic kidney disease Sepsis, pneumonia Toxic metabolic encephalopathy Severe anemia Morbid obesity Acute hypoxemic respiratory failure Elevated lipase possible pancreatitis Enlarged pelvic lymph nodes Anasarca History of EtOH abuse Possible psychiatric disorder Plan November 30: Patient received dialysis only 40 minutes yesterday as the dialysis catheter was clotted. Dialysis catheter was changed by general surgery today and she is going to receive dialysis again today. Labs reviewed. Medication reviewed. Patient's daughter Lynne in the room I had a long conversation with her. Continue per consultants. 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 - DDx of bleeding includes underlying coagulopathy, unopposed estrogen, malignancy - US was not able to visualize uterine lining clearly - Transfuse blood products as indicated - - Patient is an extremely poor surgical candidate at this time given her SOB, active DVT, sepsis, ESRD, and alcoholic encephalopathy - Surgical management would be as a last resort only, and patient would need medical stabilization and clearance for hysteroscopy, D&C, and endometrial ablation - Other options would include possible uterine artery embolization, which would likely require urgent transfer to a higher level of care - I do not believe IR performs this procedure at [facility] [place] - Would consider Progesterone treatment with Provera, however patient has active DVT with IVC filter in place and per guidelines Provera is contraindicated with active DVT - Plan of care discussed with Dr. Schroeder - Please contact my office again with any additional concerns at [phone] November 29: Dialysis yesterday was not done due to massive vaginal bleed. Patient was transfused 2 units of packed RBCs. Patient due for placement of tunneled permacath. Will attempt dialysis today. Continue to transfuse as needed. Vaginal bleeding etiology to be worked up by specialist. November 28: Due for dialysis today. Leukocytosis persist. Plan for placement of a permacath when stable from ID standpoint of view. November 27: Plan for dialysis tomorrow. White BC is 20,000. Thiamine and Protonix was changed to p.o. Renvela added as phosphorus binder November 26: Due for dialysis today. Leukocytosis persists. Continue per consultants. November 25. Patient was dialyzed 2 days in a row. Will order dialysis tomorrow. Leukocytosis persists. Patient on antibiotics. November 24: Patient was dialyzed yesterday. Serum potassium now within normal range. ABG improved. Discussed with RN. IV changed. Dialysis ordered again today. IV thiamine started. Ativan for agitation ordered. Recheck labs tomorrow. Continue per consultants. Amphojel as phosphorus binder also started. Previously: Anemia work-up ordered IV Venofer, subcu Epogen ordered Continue to monitor renal parameters Per orders Subjective ROS Limited/Unobtainable: No Constitutional: Reports: malaise Objective Objective Last 24 Hour Vital Signs Date Time Temp Pulse Resp B/P (MAP) Pulse Ox O2 Delivery O2 Flow Rate FiO2 12/01/19 12:00 8.0 40 12/01/19 12:00 Venturi Mask 8.0 12/01/19 08:00 96 12/01/19 08:00 97.0 94 25 116/58 (77) 97 12/01/19 08:00 Venturi Mask 8.0 12/01/19 08:00 8.0 40 12/01/19 05:13 Venturi Mask 8.0 12/01/19 04:00 8.0 40 12/01/19 04:00 98.0 77 20 97/57 (70) 100 12/01/19 04:00 Venturi Mask 8.0 12/01/19 03:37 91 12/01/19 00:00 90 12/01/19 00:00 98.2 85 20 111/50 (70) 100 12/01/19 00:00 Venturi Mask 8.0 11/30/19 20:00 Venturi Mask 8.0 11/30/19 20:00 8.0 40 11/30/19 20:00 87 11/30/19 20:00 98.0 83 20 98/48 (65) 100 11/30/19 19:12 93 Venturi Mask 10.0 45 11/30/19 16:00 97.2 84 23 110/52 (71) 99 11/30/19 16:00 Venturi Mask 8.0 11/30/19 16:00 84 11/30/19 16:00 8.0 40 Intake and Output 11/30/19 12/01/19 19:00 07:00 Intake Total 740 ml 710 ml Output Total 700 ml 700 ml Balance 40 ml 10 ml Intake Oral 740 ml IV Total 110 ml Blood Product 600 ml Output Urine Total 700 ml 700 ml Hemodialysis UF 0 ml Current Medications Medications (Trade) Dose Ordered Sig/Brina Route PRN Reason Start Time Stop Time Status Last Admin Dose Admin Acetaminophen (Tylenol) 650 mg Q8H PRN NG Mild Pain (Pain Scale 1-3) 11/27/19 08:30 12/27/19 08:29 Acetaminophen/ Hydrocodone Bitart ([place] 10/325) 1 tab Q8H PRN ORAL Severe Pain (Pain Scale 7-10) 11/27/19 08:30 12/04/19 08:29 11/29/19 21:46 Acetaminophen/ Hydrocodone Bitart ([place] 5/325) 1 tab Q8H PRN ORAL Moderate Pain (Pain Scale 4-6) 11/27/19 08:30 12/04/19 08:29 11/30/19 22:43 Chlorhexidine Gluconate (Shonna-Hex 2%) 1 applic DAILY@2000 TOPIC 11/26/19 20:00 02/24/20 19:59 11/30/19 20:51 Docusate Sodium (Colace) 100 mg THREE TIMES A DAY ORAL 11/28/19 18:00 12/28/19 17:59 12/01/19 08:40 Epoetin Zay (Epoetin Zay(ESRD on dialysis)) 10,000 unit TUE-TUE-TUE SUBQ 11/26/19 21:00 02/24/20 20:59 11/30/19 21:21 Lorazepam (Ativan 2mg/ml 1ml) 1 mg Q4H PRN IV For Anxiety 11/25/19 18:45 12/02/19 10:44 Morphine Sulfate (Morphine Sulfate) 1 mg Q8H PRN IVP For Pain 11/25/19 18:30 12/02/19 18:29 Pantoprazole (Protonix) 40 mg EVERY 12 HOURS ORAL 11/28/19 21:00 12/28/19 20:59 12/01/19 08:40 Polyethylene Glycol (Miralax) 17 gm BEDTIME ORAL 11/27/19 21:00 12/27/19 20:59 11/30/19 20:51 Sevelamer Carbonate (Renvela) 2,400 mg THREE TIMES A DAY ORAL 12/01/19 13:00 02/26/20 17:59 Thiamine HCl (Vitamin B1) 100 mg DAILY ORAL 11/29/19 09:00 12/29/19 08:59 12/01/19 08:40 Vancomycin HCl ([facility] pharmacy to dose) 1 ea DAILY PRN MISC Per rx protocol 11/30/19 11:30 12/30/19 11:29 Laboratory Tests 11/30/19 16:30: White Blood Count 31.4*H, Red Blood Count 2.70L, Hemoglobin 6.5*L, Hematocrit 21.2L, Mean Corpuscular Volume 79L, Mean Corpuscular Hemoglobin 24.3L, Mean Corpuscular Hemoglobin Concent 30.9L, Red Cell Distribution Width 26.1H, Platelet Count 78L, Mean Platelet Volume 7.6, Neutrophils (%) (Auto) , Lymphocytes (%) (Auto) , Monocytes (%) (Auto) , Eosinophils (%) (Auto) , Basophils (%) (Auto) , Differential Total Cells Counted 100, Neutrophils % ( Manual) 83H, Lymphocytes % (Manual) 6L, Monocytes % (Manual) 5, Eosinophils % ( Manual) 1, Basophils % (Manual) 0, Band Neutrophils 5, Platelet Estimate DecreasedL, Platelet Morphology Normal, Polychromasia 2+, Hypochromasia 2+, Anisocytosis 3+ 12/01/19 04:55: White Blood Count 35.1*H, Red Blood Count 3.38L, Hemoglobin 9.0#L, Hematocrit 28.1#L, Mean Corpuscular Volume 83, Mean Corpuscular Hemoglobin 26.6L, Mean Corpuscular Hemoglobin Concent 31.9L, Red Cell Distribution Width 21.5H, Platelet Count 76L, Mean Platelet Volume 7.9, Neutrophils (%) (Auto) , Lymphocytes (%) (Auto) , Monocytes (%) (Auto) , Eosinophils (%) (Auto) , Basophils (%) (Auto) , Differential Total Cells Counted 100, Neutrophils % ( Manual) 88H, Lymphocytes % (Manual) 5L, Monocytes % (Manual) 6, Eosinophils % ( Manual) 1, Basophils % (Manual) 0, Band Neutrophils 0, Platelet Estimate DecreasedL, Platelet Morphology Normal, Hypochromasia 2+, Anisocytosis 3+, Sodium Level 137, Potassium Level 5.2H, Chloride Level 99, Carbon Dioxide Level 25, Anion Gap 13, Blood Urea Nitrogen 77H, Creatinine 7.5H, Estimat Glomerular Filtration Rate 5.3, Glucose Level 72L, Calcium Level 7.3L, Phosphorus Level 8.1H, Magnesium Level 2.4, Total Bilirubin 0.6, Aspartate Amino Transf (AST/SGOT ) 34, Alanine Aminotransferase (ALT/SGPT) 18, Alkaline Phosphatase 102, Total Protein 5.0L, Albumin 1.3L, Globulin 3.7, Albumin/Globulin Ratio 0.4L 12/01/19 11:55: White Blood Count [Pending], Red Blood Count [Pending], Hemoglobin [Pending], Hematocrit [Pending], Mean Corpuscular Volume [Pending], Mean Corpuscular Hemoglobin [Pending], Mean Corpuscular Hemoglobin Concent [Pending], Red Cell Distribution Width [Pending], Platelet Count [Pending], Mean Platelet Volume [ Pending], Neutrophils (%) (Auto) [Pending], Lymphocytes (%) (Auto) [Pending], Monocytes (%) (Auto) [Pending], Eosinophils (%) (Auto) [Pending], Basophils (%) (Auto) [Pending] 12/01/19 12:09: POC Whole Blood Glucose 95 Height (Feet): 5 Height (Inches): 4.00 Weight (Pounds): 243 General Appearance: no apparent distress Cardiovascular: tachycardia Respiratory/Chest: decreased breath sounds Abdomen: distended Objective No other change Jean-Pierre Garcia MD Dec 01, 2019 12:25
[2019-12-01 13:01] LABS: HEMATOCRIT 28.2 % (37.0-47.0); HEMOGLOBIN 8.9 G/DL (12.0-16.0); MEAN CORPUSCULAR VOLUME 85 FL (80-99); PLATELET COUNT 68 K/UL (150-450); RED BLOOD COUNT 3.33 M/UL (4.20-5.40); RED CELL DISTRIBUTION WIDTH 22.4 % (11.6-14.8)
[2019-12-01 13:04] LABS: WHITE BLOOD COUNT 39.7 K/UL (4.8-10.8)
--- NOTE | 2019-12-01 15:14 | General Progress Note ---
Assessment/Plan Assessment/Plan: Assessment/Plan: 1. Acute renal failure. 2. Leukocytosis and thrombocytopenia 3. History of alcohol abuse. 4. Profound microcytic anemia. 5. Prior history of possible psychiatric disorder. 6. Elevated lipase. 7. Mild transaminitis. 8. Pelvic lymphadenopathy. 9. obesity 10. DVT s/p IVC filter placement 11. PNA 12. vaginal bleed Recommendations fu labs on oral diet stable H&H vag bleed>> improving speech eval appreciated HD per nephrology abx Subjective Allergies: Coded Allergies: No Known Allergies (Unverified , 11/24/19) Subjective Above noted no abdominal complaints Objective Last 24 Hour Vital Signs Date Time Temp Pulse Resp B/P (MAP) Pulse Ox O2 Delivery O2 Flow Rate FiO2 12/01/19 12:00 8.0 40 12/01/19 12:00 99 12/01/19 12:00 Venturi Mask 8.0 12/01/19 08:00 96 12/01/19 08:00 97.0 94 25 116/58 (77) 97 12/01/19 08:00 Venturi Mask 8.0 12/01/19 08:00 8.0 40 12/01/19 05:13 Venturi Mask 8.0 12/01/19 04:00 8.0 40 12/01/19 04:00 98.0 77 20 97/57 (70) 100 12/01/19 04:00 Venturi Mask 8.0 12/01/19 03:37 91 12/01/19 00:00 90 12/01/19 00:00 98.2 85 20 111/50 (70) 100 12/01/19 00:00 Venturi Mask 8.0 11/30/19 20:00 Venturi Mask 8.0 11/30/19 20:00 8.0 40 11/30/19 20:00 87 11/30/19 20:00 98.0 83 20 98/48 (65) 100 11/30/19 19:12 93 Venturi Mask 10.0 45 11/30/19 16:00 97.2 84 23 110/52 (71) 99 11/30/19 16:00 Venturi Mask 8.0 11/30/19 16:00 84 11/30/19 16:00 8.0 40 Intake and Output 11/30/19 12/01/19 19:00 07:00 Intake Total 740 ml 710 ml Output Total 700 ml 700 ml Balance 40 ml 10 ml Intake Oral 740 ml IV Total 110 ml Blood Product 600 ml Output Urine Total 700 ml 700 ml Hemodialysis UF 0 ml Laboratory Tests 11/30/19 16:30: White Blood Count 31.4*H, Red Blood Count 2.70L, Hemoglobin 6.5*L, Hematocrit 21.2L, Mean Corpuscular Volume 79L, Mean Corpuscular Hemoglobin 24.3L, Mean Corpuscular Hemoglobin Concent 30.9L, Red Cell Distribution Width 26.1H, Platelet Count 78L, Mean Platelet Volume 7.6, Neutrophils (%) (Auto) , Lymphocytes (%) (Auto) , Monocytes (%) (Auto) , Eosinophils (%) (Auto) , Basophils (%) (Auto) , Differential Total Cells Counted 100, Neutrophils % ( Manual) 83H, Lymphocytes % (Manual) 6L, Monocytes % (Manual) 5, Eosinophils % ( Manual) 1, Basophils % (Manual) 0, Band Neutrophils 5, Platelet Estimate DecreasedL, Platelet Morphology Normal, Polychromasia 2+, Hypochromasia 2+, Anisocytosis 3+ 12/01/19 04:55: White Blood Count 35.1*H, Red Blood Count 3.38L, Hemoglobin 9.0#L, Hematocrit 28.1#L, Mean Corpuscular Volume 83, Mean Corpuscular Hemoglobin 26.6L, Mean Corpuscular Hemoglobin Concent 31.9L, Red Cell Distribution Width 21.5H, Platelet Count 76L, Mean Platelet Volume 7.9, Neutrophils (%) (Auto) , Lymphocytes (%) (Auto) , Monocytes (%) (Auto) , Eosinophils (%) (Auto) , Basophils (%) (Auto) , Differential Total Cells Counted 100, Neutrophils % ( Manual) 88H, Lymphocytes % (Manual) 5L, Monocytes % (Manual) 6, Eosinophils % ( Manual) 1, Basophils % (Manual) 0, Band Neutrophils 0, Platelet Estimate DecreasedL, Platelet Morphology Normal, Hypochromasia 2+, Anisocytosis 3+, Sodium Level 137, Potassium Level 5.2H, Chloride Level 99, Carbon Dioxide Level 25, Anion Gap 13, Blood Urea Nitrogen 77H, Creatinine 7.5H, Estimat Glomerular Filtration Rate 5.3, Glucose Level 72L, Calcium Level 7.3L, Phosphorus Level 8.1H, Magnesium Level 2.4, Total Bilirubin 0.6, Aspartate Amino Transf (AST/SGOT ) 34, Alanine Aminotransferase (ALT/SGPT) 18, Alkaline Phosphatase 102, Total Protein 5.0L, Albumin 1.3L, Globulin 3.7, Albumin/Globulin Ratio 0.4L 12/01/19 11:55: White Blood Count 39.7*H, Red Blood Count 3.33L, Hemoglobin 8.9L, Hematocrit 28.2L, Mean Corpuscular Volume 85, Mean Corpuscular Hemoglobin 26.7L, Mean Corpuscular Hemoglobin Concent 31.6L, Red Cell Distribution Width 22.4H, Platelet Count 68L, Mean Platelet Volume 8.1, Neutrophils (%) (Auto) , Lymphocytes (%) (Auto) , Monocytes (%) (Auto) , Eosinophils (%) (Auto) , Basophils (%) (Auto) , Differential Total Cells Counted 100, Neutrophils % ( Manual) 96H, Lymphocytes % (Manual) 2L, Monocytes % (Manual) 2, Eosinophils % ( Manual) 0, Basophils % (Manual) 0, Band Neutrophils 0, Platelet Estimate DecreasedL, Platelet Morphology Normal, Hypochromasia 2+, Anisocytosis 3+ 12/01/19 12:09: POC Whole Blood Glucose 95 Height (Feet): 5 Height (Inches): 4.00 Weight (Pounds): 243 Objective Obese woman NCAT Supple CTA RR abd soft ND NT (++) edema David Gonzalez MD Dec 01, 2019 15:14
[2019-12-01 16:00] VITALS: BP 107/51
[2019-12-01] MEDS ORDERED: Morphine Sulfate 2mg/ml Inj(IV/IM USE ONLY) IVP PRN (18:30)
[2019-12-01 20:00] VITALS: BP 107/55
[2019-12-01] MEDS: Miralax 17gm pkt ORAL SCH (20:38)
[2019-12-01] MEDS: Dyna-Hex 2% Top Sol 2oz TOPIC SCH (20:38)
[2019-12-01 21:20] LABS: HEMATOCRIT 25.7 % (37.0-47.0); HEMOGLOBIN 8.2 G/DL (12.0-16.0); MEAN CORPUSCULAR VOLUME 83 FL (80-99); PLATELET COUNT 57 K/UL (150-450); RED BLOOD COUNT 3.09 M/UL (4.20-5.40); RED CELL DISTRIBUTION WIDTH 23.9 % (11.6-14.8)
[2019-12-01 21:23] LABS: WHITE BLOOD COUNT 41.7 K/UL (4.8-10.8)
--- NOTE | 2019-12-01 22:29 | Cardiology Progress Note ---
Assessment/Plan Assessment/Plan 1. Acute diastolic congestive heart failure, aggressive hemodialysis for decrease of preload. 2. Anemia of blood loss likely due to vaginal bleed. 3. Alcohol abuse. 4. Acute kidney injury. 5. Dyslipidemia with low HDL. 6. Sepsis with B/L PNA, COVID-19 negative. Subjective Subjective Sinus rhythm at rate of 99. Venturi mask, FIO2 of 40%. Objective Last 24 Hour Vital Signs Date Time Temp Pulse Resp B/P (MAP) Pulse Ox O2 Delivery O2 Flow Rate FiO2 12/01/19 20:00 97.6 99 24 107/55 (72) 93 12/01/19 16:00 94 12/01/19 16:00 8.0 40 12/01/19 16:00 Venturi Mask 8.0 12/01/19 16:00 98.1 96 24 107/51 (69) 96 12/01/19 12:00 8.0 40 12/01/19 12:00 99 12/01/19 12:00 Venturi Mask 8.0 12/01/19 12:00 98.8 96 28 108/61 (77) 96 12/01/19 08:00 96 12/01/19 08:00 97.0 94 25 116/58 (77) 97 12/01/19 08:00 Venturi Mask 8.0 12/01/19 08:00 8.0 40 12/01/19 05:13 Venturi Mask 8.0 12/01/19 04:00 8.0 40 12/01/19 04:00 98.0 77 20 97/57 (70) 100 12/01/19 04:00 Venturi Mask 8.0 12/01/19 03:37 91 12/01/19 00:00 90 12/01/19 00:00 98.2 85 20 111/50 (70) 100 12/01/19 00:00 Venturi Mask 8.0 Intake and Output 11/30/19 12/01/19 19:00 07:00 Intake Total 740 ml 710 ml Output Total 700 ml 700 ml Balance 40 ml 10 ml Intake Oral 740 ml IV Total 110 ml Blood Product 600 ml Output Urine Total 700 ml 700 ml Hemodialysis UF 0 ml 2D Echo: LVEF 65%, RVSP 58 mmHg, Grade I LVDD Laboratory Tests Test 12/01/19 04:55 8/1/20 11:55 12/01/19 12:09 12/01/19 18:42 White Blood Count 35.1 K/UL (4.8-10.8) *H 39.7 K/UL (4.8-10.8) *H Red Blood Count 3.38 M/UL (4.20-5.40) L 3.33 M/UL (4.20-5.40) L Hemoglobin 9.0 G/DL (12.0-16.0) #L 8.9 G/DL (12.0-16.0) L Hematocrit 28.1 % (37.0-47.0) #L 28.2 % (37.0-47.0) L Mean Corpuscular Volume 83 FL (80-99) 85 FL (80-99) Mean Corpuscular Hemoglobin 26.6 PG (27.0-31.0) L 26.7 PG (27.0-31.0) L Mean Corpuscular Hemoglobin Concent 31.9 G/DL (32.0-36.0) L 31.6 G/DL (32.0-36.0) L Red Cell Distribution Width 21.5 % (11.6-14.8) H 22.4 % (11.6-14.8) H Platelet Count 76 K/UL (150-450) L 68 K/UL (150-450) L Mean Platelet Volume 7.9 FL (6.5-10.1) 8.1 FL (6.5-10.1) Neutrophils (%) (Auto) % (45.0-75.0) % (45.0-75.0) Lymphocytes (%) (Auto) % (20.0-45.0) % (20.0-45.0) Monocytes (%) (Auto) % (1.0-10.0) % (1.0-10.0) Eosinophils (%) (Auto) % (0.0-3.0) % (0.0-3.0) Basophils (%) (Auto) % (0.0-2.0) % (0.0-2.0) Differential Total Cells Counted 100 100 Neutrophils % (Manual) 88 % (45-75) H 96 % (45-75) H Lymphocytes % (Manual) 5 % (20-45) L 2 % (20-45) L Monocytes % (Manual) 6 % (1-10) 2 % (1-10) Eosinophils % (Manual) 1 % (0-3) 0 % (0-3) Basophils % (Manual) 0 % (0-2) 0 % (0-2) Band Neutrophils 0 % (0-8) 0 % (0-8) Platelet Estimate Decreased L Decreased L Platelet Morphology Normal Normal Hypochromasia 2+ 2+ Anisocytosis 3+ 3+ Sodium Level 137 MMOL/L (136-145) Potassium Level 5.2 MMOL/L (3.5-5.1) H Chloride Level 99 MMOL/L (98-107) Carbon Dioxide Level 25 MMOL/L (21-32) Anion Gap 13 mmol/L (5-15) Blood Urea Nitrogen 77 mg/dL (7-18) H Creatinine 7.5 MG/DL (0.55-1.30) H Estimat Glomerular Filtration Rate 5.3 mL/min (>60) Glucose Level 72 MG/DL (74-106) L Calcium Level 7.3 MG/DL (8.5-10.1) L Phosphorus Level 8.1 MG/DL (2.5-4.9) H Magnesium Level 2.4 MG/DL (1.8-2.4) Total Bilirubin 0.6 MG/DL (0.2-1.0) Aspartate Amino Transf (AST/SGOT) 34 U/L (15-37) Alanine Aminotransferase (ALT/SGPT) 18 U/L (12-78) Alkaline Phosphatase 102 U/L (46-116) Total Protein 5.0 G/DL (6.4-8.2) L Albumin 1.3 G/DL (3.4-5.0) L Globulin 3.7 g/dL Albumin/Globulin Ratio 0.4 (1.0-2.7) L POC Whole Blood Glucose 95 MG/DL (74-106) 86 MG/DL (74-106) Test 12/01/19 20:10 White Blood Count 41.7 K/UL (4.8-10.8) *H Red Blood Count 3.09 M/UL (4.20-5.40) L Hemoglobin 8.2 G/DL (12.0-16.0) L Hematocrit 25.7 % (37.0-47.0) L Mean Corpuscular Volume 83 FL (80-99) Mean Corpuscular Hemoglobin 26.6 PG (27.0-31.0) L Mean Corpuscular Hemoglobin Concent 31.9 G/DL (32.0-36.0) L Red Cell Distribution Width 23.9 % (11.6-14.8) H Platelet Count 57 K/UL (150-450) L Mean Platelet Volume 8.5 FL (6.5-10.1) Neutrophils (%) (Auto) % (45.0-75.0) Lymphocytes (%) (Auto) % (20.0-45.0) Monocytes (%) (Auto) % (1.0-10.0) Eosinophils (%) (Auto) % (0.0-3.0) Basophils (%) (Auto) % (0.0-2.0) Differential Total Cells Counted 100 Neutrophils % (Manual) 91 % (45-75) H Lymphocytes % (Manual) 3 % (20-45) L Monocytes % (Manual) 5 % (1-10) Eosinophils % (Manual) 0 % (0-3) Basophils % (Manual) 1 % (0-2) Band Neutrophils 0 % (0-8) Smudge Cells Occasional Platelet Estimate Decreased L Platelet Morphology Normal Hypochromasia 2+ Anisocytosis 2+ Microbiology Date/Time Source Procedure Growth Status 11/29/19 00:30 Urine,Clean Catch Urine Culture - Final NO GROWTH AFTER 48 HOURS Complete Objective HEENT: Atraumatic, normocephalic. ENT, pupils are equal, round, and reactive to light and accommodation. Positive pallor. NECK: Cannot assess JVP due to obesity and short neck and current use of BiPAP mask. No carotid bruit. Carotid upstrokes 2+ bilaterally. CARDIOVASCULAR: Normal S1, S2. Regular rate and rhythm. No murmurs, gallops, or rubs. PMI is at fourth intercostal space in the midclavicular line. LUNGS: Bilateral crackles, mostly in the bases. ABDOMEN: Soft, nondistended. No hepatosplenomegaly. Positive bowel sounds. EXTREMITIES: No evidence of edema, clubbing, or cyanosis. Adryan Lopez MD Dec 01, 2019 22:29
[2019-12-02] VITALS: BP 116/64
[2019-12-02 04:00] VITALS: BP 101/57
[2019-12-02 06:14] LABS: HEMATOCRIT 25.4 % (37.0-47.0); MEAN CORPUSCULAR VOLUME 84 FL (80-99); PLATELET COUNT 62 K/UL (150-450); RED BLOOD COUNT 3.02 M/UL (4.20-5.40); RED CELL DISTRIBUTION WIDTH 22.4 % (11.6-14.8)
[2019-12-02 06:46] LABS: PHOSPHORUS 7.3 MG/DL (2.5-4.9)
[2019-12-02 08:00] VITALS: BP 112/43
[2019-12-02 08:33] LABS: ALANINE AMINOTRANSFERASE 18 U/L (12-78); ALBUMIN 1.2 G/DL (3.4-5.0); ALBUMIN/GLOBULIN RATIO 0.3 (1.0-2.7); ALKALINE PHOSPHATASE 106 U/L (46-116); ANION GAP 16 mmol/L (5-15); ASPARTATE AMINO TRANSFERASE 32 U/L (15-37); BILIRUBIN,TOTAL 0.5 MG/DL (0.2-1.0); BLOOD UREA NITROGEN 62 mg/dL (7-18); CALCIUM 7.5 MG/DL (8.5-10.1); CARBON DIOXIDE 25 MMOL/L (21-32); CHLORIDE 101 MMOL/L (98-107); CREATININE 6.7 MG/DL (0.55-1.30); POTASSIUM 4.4 MMOL/L (3.5-5.1); SODIUM 141 MMOL/L (136-145)
[2019-12-02] MEDS: Thiamine 100mg tab ORAL SCH (08:45)
[2019-12-02] MEDS: Docusate 100mg cap ORAL SCH ×4 (08:47→17:17)
--- NOTE | 2019-12-02 09:49 | Infectious Diseases Prog Note ---
Assessment/Plan ASSESSMENT: 69yo F with: 1. Respiratory distress.- SP Bipap- sp NC> VM 40%, 8L 11/26> 4l NC 11/27> VM 40% 8L 11/28 2. B/l Pneumonia- COVID neg x3 -11/24 sp cx MRSA -11/23 Rapid COVID PCR neg x2; 11/24 rapid COVID PCR neg -11/23 CT chest: Bilateral pneumonia, with greater confluence in the posterior right lower lobe. 3. Severe Leukocytosis, acute reacted to distress versus sepsis. -on the high 20s-30s -likely multifactorial due to PE/DVT, PNA, pancreatitis, acute renal failure --now increased likely 2ry to vaginal bleeding- r.o bacteremia, -pelvic US: LIMITED TRANSABDOMINAL STUDY ONLY WITH RELATIVELY POOR DELINEATION OF THE REPRODUCTIVE ORGANS. HETEROGENEOUS UTERUS WITH APPARENT FIBROID CHANGE. RIGHT OVARY NOT VISUALIZED AND ENDOMETRIAL STRIPE ALSO POORLY SEEN LEFT OVARY IS ONLY MARGINALLY SEEN AND GROSSLY UNREMARKABLE. -Abd US: STUDY LIMITED DUE TO BODY HABITUS AND BOWEL GAS. FATTY LIVER WITH A SMALL SEPTATED CYST. GALLSTONES.THE SPLEEN, LEFT KIDNEY, COMMON BILE DUCT AND PANCREAS WELL AORTA AND CAVA ARE NOT WELL DEFINED. -CT abd/p : Enlarged pelvic lymph nodes could reflect reactive changes from cellulitis in the setting of generalized bony wall edema, or other acute inflammatory changes but neoplasm such as lymphomas not excluded. Correlate clinically. Ultrasound of the pelvis could be considered to help distinguish patient's ovaries from presumed pelvic adenopathy.Mild bilateral hydronephrosis , with a Kaminski catheter in the urinary bladder. Correlate with bladder catheter function. 4. Sepsis.. -11/28 u/a wbc 10-15, nit neg, leuk +3 -11/25 ucx Neg -11/23 BCx Neg 5.Vaginal bleeding 6 L LE DVT and Probable PE -CTA chest: NO CT EVIDENCE OF PULMONARY EMBOLISM TO THE EXTENT VISUALIZED.BILATERAL INFILTRATES AND RIGHT LOWER LOBE CONSOLIDATION. THE CONSOLIDATION DOESOBSCURE SOME PERIPHERAL SUBSEGMENTAL BRANCHES OF THE RIGHT LOWER LOBE AND SMALLPERIPHERAL EMBOLI IN THIS AREA CANNOT BE EXCLUDED.MEDIASTINAL ADENOPATHY.ANASARCA. -11/25 SP IVC filter placement -v/q scan: Overall findings suggesting intermediate probability for pulmonary embolism. More sensitive evaluation can be made with CT angiogram of the chest as clinically indicated. -v. duplex: STUDY POSITIVE FOR DVT IN THE LEFT COMMON FEMORAL TO PROXIMAL SUPERFICIAL FEMORAL VEIN. 7. Severe acute renal failure; improving- likely underlying CKD -on HD now 8. Acute pancreatitis EtOh abuse PLAN: Cont vancomycin #2 for MRSA pna 11/29 SP Zosyn #7 11/29 SP linezolid #5 (changed given thrombocytopenia) 11/23 SP Ceftriaxone x1, Azythromycin x1, IV Vancomycin x1 Trend WBC daily, improving 2. Monitor blood culture. 3. Monitor urine culture. 4. COVID neg x3 (2 were sent on same day) 5. Monitor lipase. 6. f/u flow cytometry 7. Will hold on permacath placement given rise in WBC; f/u repeat BCx and reassess Tuesday. Discussed with RN Thank you for this consult. We will continue to follow. Subjective Allergies: Coded Allergies: No Known Allergies (Unverified , 11/24/19) AF On venturi mask Pleasant, interactive Says she's hungry for breakfast Less vaginal bleeding per RN No diarrhea Objective Last 24 Hour Vital Signs Date Time Temp Pulse Resp B/P (MAP) Pulse Ox O2 Delivery O2 Flow Rate FiO2 12/02/19 09:00 10.0 45 12/02/19 08:00 97.5 90 24 112/43 (66) 92 12/02/19 04:00 Venturi Mask 8.0 12/02/19 04:00 8.0 40 12/02/19 04:00 97.7 89 24 101/57 (72) 97 12/02/19 03:31 93 12/02/19 00:00 98.1 94 24 116/64 (81) 93 12/02/19 00:00 8.0 40 12/02/19 00:00 96 12/02/19 00:00 Venturi Mask 8.0 12/01/19 20:00 8.0 40 12/01/19 20:00 97 12/01/19 20:00 Venturi Mask 8.0 12/01/19 20:00 97.6 99 24 107/55 (72) 93 12/01/19 19:00 95 Venturi Mask 10.0 45 12/01/19 16:00 94 12/01/19 16:00 8.0 40 12/01/19 16:00 Venturi Mask 8.0 12/01/19 16:00 98.1 96 24 107/51 (69) 96 12/01/19 12:00 8.0 40 12/01/19 12:00 99 12/01/19 12:00 Venturi Mask 8.0 12/01/19 12:00 98.8 96 28 108/61 (77) 96 Height (Feet): 5 Height (Inches): 4.00 Weight (Pounds): 241 Gen: Older woman, laying in bed, NAD Pulm: BL chest rise on Venturi mask, speaking in full sentences Abd: Obese, soft, NTND Ext: No c/c/e Microbiology Date/Time Source Procedure Growth Status 11/30/19 16:45 Blood Blood Culture - Preliminary NO GROWTH AFTER 24 HOURS Resulted 11/30/19 16:30 Blood Blood Culture - Preliminary NO GROWTH AFTER 24 HOURS Resulted Laboratory Tests Test 12/01/19 11:55 12/01/19 12:09 12/01/19 18:42 12/01/19 20:10 White Blood Count 39.7 K/UL (4.8-10.8) *H 41.7 K/UL (4.8-10.8) *H Red Blood Count 3.33 M/UL (4.20-5.40) L 3.09 M/UL (4.20-5.40) L Hemoglobin 8.9 G/DL (12.0-16.0) L 8.2 G/DL (12.0-16.0) L Hematocrit 28.2 % (37.0-47.0) L 25.7 % (37.0-47.0) L Mean Corpuscular Volume 85 FL (80-99) 83 FL (80-99) Mean Corpuscular Hemoglobin 26.7 PG (27.0-31.0) L 26.6 PG (27.0-31.0) L Mean Corpuscular Hemoglobin Concent 31.6 G/DL (32.0-36.0) L 31.9 G/DL (32.0-36.0) L Red Cell Distribution Width 22.4 % (11.6-14.8) H 23.9 % (11.6-14.8) H Platelet Count 68 K/UL (150-450) L 57 K/UL (150-450) L Mean Platelet Volume 8.1 FL (6.5-10.1) 8.5 FL (6.5-10.1) Neutrophils (%) (Auto) % (45.0-75.0) % (45.0-75.0) Lymphocytes (%) (Auto) % (20.0-45.0) % (20.0-45.0) Monocytes (%) (Auto) % (1.0-10.0) % (1.0-10.0) Eosinophils (%) (Auto) % (0.0-3.0) % (0.0-3.0) Basophils (%) (Auto) % (0.0-2.0) % (0.0-2.0) Differential Total Cells Counted 100 100 Neutrophils % (Manual) 96 % (45-75) H 91 % (45-75) H Lymphocytes % (Manual) 2 % (20-45) L 3 % (20-45) L Monocytes % (Manual) 2 % (1-10) 5 % (1-10) Eosinophils % (Manual) 0 % (0-3) 0 % (0-3) Basophils % (Manual) 0 % (0-2) 1 % (0-2) Band Neutrophils 0 % (0-8) 0 % (0-8) Platelet Estimate Decreased L Decreased L Platelet Morphology Normal Normal Hypochromasia 2+ 2+ Anisocytosis 3+ 2+ POC Whole Blood Glucose 95 MG/DL (74-106) 86 MG/DL (74-106) Smudge Cells Occasional Test 12/02/19 03:22 White Blood Count 33.0 K/UL (4.8-10.8) *H Red Blood Count 3.02 M/UL (4.20-5.40) L Hemoglobin 8.0 G/DL (12.0-16.0) L Hematocrit 25.4 % (37.0-47.0) L Mean Corpuscular Volume 84 FL (80-99) Mean Corpuscular Hemoglobin 26.6 PG (27.0-31.0) L Mean Corpuscular Hemoglobin Concent 31.6 G/DL (32.0-36.0) L Red Cell Distribution Width 22.4 % (11.6-14.8) H Platelet Count 62 K/UL (150-450) L Mean Platelet Volume 7.7 FL (6.5-10.1) Neutrophils (%) (Auto) % (45.0-75.0) Lymphocytes (%) (Auto) % (20.0-45.0) Monocytes (%) (Auto) % (1.0-10.0) Eosinophils (%) (Auto) % (0.0-3.0) Basophils (%) (Auto) % (0.0-2.0) Neutrophils % (Manual) Pending Lymphocytes % (Manual) Pending Platelet Estimate Pending Platelet Morphology Pending Sodium Level 141 MMOL/L (136-145) Potassium Level 4.4 MMOL/L (3.5-5.1) Chloride Level 101 MMOL/L (98-107) Carbon Dioxide Level 25 MMOL/L (21-32) Anion Gap 16 mmol/L (5-15) H Blood Urea Nitrogen 62 mg/dL (7-18) H Creatinine 6.7 MG/DL (0.55-1.30) H Estimat Glomerular Filtration Rate 6.1 mL/min (>60) Glucose Level 65 MG/DL (74-106) L Uric Acid 7.8 MG/DL (2.6-7.2) H Calcium Level 7.5 MG/DL (8.5-10.1) L Phosphorus Level 7.3 MG/DL (2.5-4.9) H Magnesium Level 2.3 MG/DL (1.8-2.4) Total Bilirubin 0.5 MG/DL (0.2-1.0) Aspartate Amino Transf (AST/SGOT) 32 U/L (15-37) Alanine Aminotransferase (ALT/SGPT) 18 U/L (12-78) Alkaline Phosphatase 106 U/L (46-116) C-Reactive Protein, Quantitative 29.6 mg/dL (0.00-0.90) H Pro-B-Type Natriuretic Peptide 2907 pg/mL (0-125) H Total Protein 5.0 G/DL (6.4-8.2) L Albumin 1.2 G/DL (3.4-5.0) L Globulin 3.8 g/dL Albumin/Globulin Ratio 0.3 (1.0-2.7) L Random Vancomycin Level 14.8 ug/mL Current Medications Medications (Trade) Dose Ordered Sig/Brina Route PRN Reason Start Time Stop Time Status Last Admin Dose Admin Acetaminophen (Tylenol) 650 mg Q8H PRN NG Mild Pain (Pain Scale 1-3) 11/27/19 08:30 12/27/19 08:29 Acetaminophen/ Hydrocodone Bitart ([place] 10/325) 1 tab Q8H PRN ORAL Severe Pain (Pain Scale 7-10) 11/27/19 08:30 12/04/19 08:29 11/29/19 21:46 Acetaminophen/ Hydrocodone Bitart ([place] 5/325) 1 tab Q8H PRN ORAL Moderate Pain (Pain Scale 4-6) 11/27/19 08:30 12/04/19 08:29 11/30/19 22:43 Chlorhexidine Gluconate ([place]onna-Hex 2%) 1 applic DAILY@2000 TOPIC 11/26/19 20:00 02/24/20 19:59 12/01/19 20:38 Docusate Sodium (Colace) 100 mg THREE TIMES A DAY ORAL 11/28/19 18:00 12/28/19 17:59 12/02/19 08:47 Epoetin Zay (Epoetin Zay(ESRD on dialysis)) 10,000 unit TUE-TUE-TUE SUBQ 11/26/19 21:00 02/24/20 20:59 11/30/19 21:21 Lorazepam (Ativan 2mg/ml 1ml) 1 mg Q4H PRN IV For Anxiety 11/25/19 18:45 12/02/19 10:44 Morphine Sulfate (Morphine Sulfate) 1 mg Q8H PRN IVP Breakthrough Pain 12/01/19 18:30 12/08/19 18:29 Pantoprazole (Protonix) 40 mg EVERY 12 HOURS ORAL 11/28/19 21:00 12/28/19 20:59 12/02/19 08:44 Polyethylene Glycol (Miralax) 17 gm BEDTIME ORAL 11/27/19 21:00 12/27/19 20:59 12/01/19 20:38 Sevelamer Carbonate (Renvela) 2,400 mg THREE TIMES A DAY ORAL 12/01/19 13:00 02/26/20 17:59 12/02/19 08:45 Thiamine HCl (Vitamin B1) 100 mg DAILY ORAL 11/29/19 09:00 12/29/19 08:59 12/02/19 08:45 Vancomycin HCl (Vanco pharmacy to dose) 1 ea DAILY PRN MISC Per rx protocol 11/30/19 11:30 12/30/19 11:29 Vancomycin HCl 1 gm/Dextrose 275 ml @ 183.708 mls/hr ONCE ONCE IVPB 12/02/19 10:00 12/02/19 11:29 Negar Alarcon M.D. Dec 02, 2019 09:49
[2019-12-02] MEDS ORDERED: Vancomycin 1gm/D5W 275ml IVPB ONE ×2 (10:00)
[2019-12-02] MEDS ORDERED: NS 275ml ONE ×2 (10:11→18:32)
[2019-12-02] MEDS ORDERED: Tubing Blood Filter IV ONE (10:11)
[2019-12-02] MEDS ORDERED: Tubing IV Secondary IV ONE ×2 (10:11→18:32)
--- NOTE | 2019-12-02 10:18 | Pulmonology Progress Note ---
Carlita Brewster PATTERNMA[employer] ALL AROUND 12/02/19 1018: Subjective ROS Limited/Unobtainable: No Allergies: Coded Allergies: No Known Allergies (Unverified , 11/24/19) Subjective episode of large vaginal bleeding 11/28 afternoon Hgb down to 6.5 11/29 s/p blood transfusion , Hgb up and remains stable at baseline after transfusion , no further vag bleeding back on 40% VM no fevers, persistent high leucocytosis 41--> 33 this am still some SOB, no CP + gen fatigue, weakness CXR 11/29 w/out much changes 11/30 s/p removal of clotted R femoral HD catheter and placement of the new one via R femoral vein by gen surgeon on the bedside Objective Last 24 Hour Vital Signs Date Time Temp Pulse Resp B/P (MAP) Pulse Ox O2 Delivery O2 Flow Rate FiO2 12/02/19 09:00 10.0 45 12/02/19 08:00 Venturi Mask 10.0 12/02/19 08:00 97.5 90 24 112/43 (66) 92 12/02/19 07:40 90 12/02/19 04:00 Venturi Mask 8.0 12/02/19 04:00 8.0 40 12/02/19 04:00 97.7 89 24 101/57 (72) 97 12/02/19 03:31 93 12/02/19 00:00 98.1 94 24 116/64 (81) 93 12/02/19 00:00 8.0 40 12/02/19 00:00 96 12/02/19 00:00 Venturi Mask 8.0 12/01/19 20:00 8.0 40 12/01/19 20:00 97 12/01/19 20:00 Venturi Mask 8.0 12/01/19 20:00 97.6 99 24 107/55 (72) 93 12/01/19 19:00 95 Venturi Mask 10.0 45 12/01/19 16:00 94 12/01/19 16:00 8.0 40 12/01/19 16:00 Venturi Mask 8.0 12/01/19 16:00 98.1 96 24 107/51 (69) 96 12/01/19 12:00 8.0 40 12/01/19 12:00 99 12/01/19 12:00 Venturi Mask 8.0 12/01/19 12:00 98.8 96 28 108/61 (77) 96 Intake and Output 12/01/19 12/02/19 19:00 07:00 Intake Total 300 ml 400 ml Output Total 1050 ml 850 ml Balance -750 ml -450 ml Intake Oral 300 ml 400 ml Output Urine Total 1050 ml 850 ml Hemodialysis UF 0 ml Objective General Appearance: Vietnamese speaking, in NAD, calm, obese female Lines, tubes and drains: peripheral, also CL via R femoral ->HD catheter HEENT: normocephalic, atraumatic, anicteric, mucous membranes moist Neck: non-tender, supple Respiratory/Chest: no accessory muscle use, few crackles at bases Cardiovascular/Chest: normal peripheral pulses, normal rate, regular rhythm Abdomen: normal bowel sounds, soft . mild distention and obese, non tender Extremities: normal range of motion, non-tender, no calf tenderness, +1 edema BLE Neurologic: no motor/sensory deficits, alert, responsive but somewhat confused Musculoskeletal: normal muscle bulk Microbiology Date/Time Source Procedure Growth Status 11/30/19 16:45 Blood Blood Culture - Preliminary NO GROWTH AFTER 24 HOURS Resulted 11/30/19 16:30 Blood Blood Culture - Preliminary NO GROWTH AFTER 24 HOURS Resulted Laboratory Tests 12/01/19 11:55: White Blood Count 39.7*H, Red Blood Count 3.33L, Hemoglobin 8.9L, Hematocrit 28.2L, Mean Corpuscular Volume 85, Mean Corpuscular Hemoglobin 26.7L, Mean Corpuscular Hemoglobin Concent 31.6L, Red Cell Distribution Width 22.4H, Platelet Count 68L, Mean Platelet Volume 8.1, Neutrophils (%) (Auto) , Lymphocytes (%) (Auto) , Monocytes (%) (Auto) , Eosinophils (%) (Auto) , Basophils (%) (Auto) , Differential Total Cells Counted 100, Neutrophils % ( Manual) 96H, Lymphocytes % (Manual) 2L, Monocytes % (Manual) 2, Eosinophils % ( Manual) 0, Basophils % (Manual) 0, Band Neutrophils 0, Platelet Estimate DecreasedL, Platelet Morphology Normal, Hypochromasia 2+, Anisocytosis 3+ 12/01/19 12:09: POC Whole Blood Glucose 95 12/01/19 18:42: POC Whole Blood Glucose 86 12/01/19 20:10: White Blood Count 41.7*H, Red Blood Count 3.09L, Hemoglobin 8.2L, Hematocrit 25.7L, Mean Corpuscular Volume 83, Mean Corpuscular Hemoglobin 26.6L, Mean Corpuscular Hemoglobin Concent 31.9L, Red Cell Distribution Width 23.9H, Platelet Count 57L, Mean Platelet Volume 8.5, Neutrophils (%) (Auto) , Lymphocytes (%) (Auto) , Monocytes (%) (Auto) , Eosinophils (%) (Auto) , Basophils (%) (Auto) , Differential Total Cells Counted 100, Neutrophils % ( Manual) 91H, Lymphocytes % (Manual) 3L, Monocytes % (Manual) 5, Eosinophils % ( Manual) 0, Basophils % (Manual) 1, Band Neutrophils 0, Platelet Estimate DecreasedL, Platelet Morphology Normal, Hypochromasia 2+, Anisocytosis 2+, Smudge Cells Occasional 12/02/19 03:22: White Blood Count 33.0*H, Red Blood Count 3.02L, Hemoglobin 8.0L, Hematocrit 25.4L, Mean Corpuscular Volume 84, Mean Corpuscular Hemoglobin 26.6L, Mean Corpuscular Hemoglobin Concent 31.6L, Red Cell Distribution Width 22.4H, Platelet Count 62L, Mean Platelet Volume 7.7, Neutrophils (%) (Auto) , Lymphocytes (%) (Auto) , Monocytes (%) (Auto) , Eosinophils (%) (Auto) , Basophils (%) (Auto) , Neutrophils % (Manual) [Pending], Lymphocytes % (Manual) [Pending], Platelet Estimate [Pending], Platelet Morphology [Pending], Sodium Level 141, Potassium Level 4.4, Chloride Level 101, Carbon Dioxide Level 25, Anion Gap 16H, Blood Urea Nitrogen 62H, Creatinine 6.7H, Estimat Glomerular Filtration Rate 6.1, Glucose Level 65L, Uric Acid 7.8H, Calcium Level 7.5L, Phosphorus Level 7.3H, Magnesium Level 2.3, Total Bilirubin 0.5, Aspartate Amino Transf (AST/SGOT) 32, Alanine Aminotransferase (ALT/SGPT) 18, Alkaline Phosphatase 106, C-Reactive Protein, Quantitative 29.6H, Pro-B-Type Natriuretic Peptide 2907H, Total Protein 5.0L, Albumin 1.2L, Globulin 3.8, Albumin/Globulin Ratio 0.3L, Random Vancomycin Level 14.8 Current Medications Medications (Trade) Dose Ordered Sig/Brina Route PRN Reason Start Time Stop Time Status Last Admin Dose Admin Acetaminophen (Tylenol) 650 mg Q8H PRN NG Mild Pain (Pain Scale 1-3) 11/27/19 08:30 12/27/19 08:29 Acetaminophen/ Hydrocodone Bitart ([place] 10/325) 1 tab Q8H PRN ORAL Severe Pain (Pain Scale 7-10) 11/27/19 08:30 12/04/19 08:29 11/29/19 21:46 Acetaminophen/ Hydrocodone Bitart ([place] 5/325) 1 tab Q8H PRN ORAL Moderate Pain (Pain Scale 4-6) 11/27/19 08:30 12/04/19 08:29 11/30/19 22:43 Chlorhexidine Gluconate ([place]-Hex 2%) 1 applic DAILY@2000 TOPIC 11/26/19 20:00 02/24/20 19:59 12/01/19 20:38 Docusate Sodium (Colace) 100 mg THREE TIMES A DAY ORAL 11/28/19 18:00 12/28/19 17:59 12/02/19 08:47 Epoetin Zay (Epoetin Zay(ESRD on dialysis)) 10,000 unit TUE-TUE-TUE SUBQ 11/26/19 21:00 02/24/20 20:59 11/30/19 21:21 Lorazepam (Ativan 2mg/ml 1ml) 1 mg Q4H PRN IV For Anxiety 11/25/19 18:45 12/02/19 10:44 Morphine Sulfate (Morphine Sulfate) 1 mg Q8H PRN IVP Breakthrough Pain 12/01/19 18:30 12/08/19 18:29 Pantoprazole (Protonix) 40 mg EVERY 12 HOURS ORAL 11/28/19 21:00 12/28/19 20:59 12/02/19 08:44 Polyethylene Glycol (Miralax) 17 gm BEDTIME ORAL 11/27/19 21:00 12/27/19 20:59 12/01/19 20:38 Sevelamer Carbonate (Renvela) 2,400 mg THREE TIMES A DAY ORAL 12/01/19 13:00 02/26/20 17:59 12/02/19 08:45 Thiamine HCl (Vitamin B1) 100 mg DAILY ORAL 11/29/19 09:00 12/29/19 08:59 12/02/19 08:45 Vancomycin HCl (Vanco pharmacy to dose) 1 ea DAILY PRN MISC Per rx protocol 11/30/19 11:30 12/30/19 11:29 Vancomycin HCl 1 gm/Dextrose 275 ml @ 183.708 mls/hr ONCE ONCE IVPB 12/02/19 10:00 12/02/19 11:29 Assessment/Plan Assessment/Plan ASSESSMENT Sepsis Acute hypoxemic respiratory failure - Acute toxic metabolic encephalopathy ( multifactorial due to ARF, sepsis)- improving Acute renal failure , requiring start of HD MRSA bilateral PNA Acute DVT LLE common femoral to proximal superficial veins , r/o RE-NGT Possible UTI Hyperkalemia Severe pulmonary HTN Anemia Severe postmenopausal bleeding , with pelvic LAD; ? malignancy Elevated lipase, probably pancreatitis Pelvic LAD Anasarca History of EtOH abuse Possible psychiatric disorder PLAN OF CARE LEOBARDO supplemental O2 titrate to keep sat above 92%, resp status improved after HD, now back on O2 via VM fup with CXR 11/29 w/pit much changes : Bilateral alveolar airspace disease unchanged right greater than left. pulm toilet SCX + MRSA hx of recent resp illness CXR in am abx per ID recs-> Zosyn completing today and Vanco persistent leukocytosis with trend up , no fevers CTA chest with evidence of PNA initial SOB and resp distress were most likely due to fluid overload 2 to acute renal failure, and now acute DVT , r/o PE -> NGT Venous Duplex BLE + acute DVT LEFT COMMON FEMORAL TO PROXIMAL SUPERFICIAL FEMORAL VEINs. unable to start a/coagulation given Hgb 7.3 stat VQ scan 11/25 with intermediate probability for pulmonary embolism. s/p IVC filter 11/25 CTA chest -> no PE + BL infiltrates and RLL consolidation +mediastinal adenopathy concern for malignancy and elevated WBC ? tumor burden HOSPICE/HOME HEALTH AIDE signed out for now fup with further onco recs mediastinal and pelvic lymphadenopathy ? LP aspir precautions VSS pending s/p PRBC transfusion monitor HH with goal to keep Hg above 7, on EPO and IV iron anemia w/up noted stool OB NGT x 3 monitor PLT count rapid COVID 19 11/23 x 2 - NGT rapid COVID 19 11/24 NGT BCX 11/23 NGTD ? UTI UCX 11/25 NGT SCX 11/25 + MRSA UCX 11/28 NGT TB spot pending further management of ARF and hyper K as per cardiology consultants - bicarb stabilized s/p HD via R fem temp HD catheter, placed by surgeon creat trending down monitor volumes permanent HD catheter placement pending ECHO with pEF 65% and RVSP of 58 c/w severe pulm HTN cardiac monitoring-SR lipase trended down to normal hep panel NGT HIV nonreactive abd US, given enlarged lymph nodes-> fatty liver with a small septated cyst. Gallstones. The spleen, left kidney, CBD, pancreas ,aorta and cava not well defined. lipase and AST trending down CT head -no acute IC patholgoy pelvic US noted episode of large postmenopausal bleeding 11/28 HOSPICE/HOME HEALTH AIDE eval appreciated not a candidate for surgical interventions as this time needs hysteroscopy, D&C and endometrium ablation , will need medical stabilization and clearance prior to surgery HOSPICE/HOME HEALTH AIDE was unable to start Provera given acute DVT at this time medically optimize, monitor closely, check counts thank you for consult Reece Peters MD 12/02/192106: Subjective Allergies: Coded Allergies: No Known Allergies (Unverified , 11/24/19) Assessment/Plan Assessment/Plan Patient seen and examined with PATTERNMAKER ALL AROUND. Agree with above A&P as it reflects our joint deliberations. f/u repeat CXR planned for tomorrow. Carlita Brewster PATTERNMAKER [employer] AROUND Dec 02, 2019 10:18 Reece Peters MD Dec 02, 2019 21:07
[2019-12-02 12:00] VITALS: BP 124/65
--- NOTE | 2019-12-02 12:25 | Hematology/Onc Progress Note ---
Assessment/Plan Assessment/Plan Assessment and Recs # Left LE DVT and Probable PE s/p 11/25 IVC filter placement --> v/q scan: Overall findings suggesting intermediate probability for pulmonary embolism. More sensitive evaluation can be made with CT angiogram of the chest as clinically indicated. --> v. duplex: STUDY POSITIVE FOR DVT IN THE LEFT COMMON FEMORAL TO PROXIMAL SUPERFICIAL FEMORAL VEIN. LEFT COMMON FEMORAL TO PROXIMAL SUPERFICIAL FEMORAL --> unable to start anticoag given severe anemia, etoh use --> outpatient followup # Anemia of chronic disease due to underlying chronic medical issues, multifactorial v Gi bleed --> Anemia workup has been ordered, rule out gi bleed --> No evidence of hemolysis is noted, peripheral smear has been reviewed. --> Hgb goal >7. Transfuse prn. --> Epogen or iron both have been started for esrd --> Medications have been reviewed --> low threshold for gi evaluation in case has occult + --> recommend etoh cessation --> hgb 8.3-->8-->7.9->8-->7.7 # Leukocytosis due to sepsis uti and cap -> abx as per id zosyn->vanc --> wbc 31-->24-->23-->16-->27-->33 --> imaging as needed # Thrombocytopenia likely due to infection --> trend 90 # Acute respiratory failure with hypoxia --> on bipap # ESRD --> per renal on hd # Sepsis with bilateral pna # CAP (community acquired pneumonia) # Hyperkalemia # Encephalopathy acute # Morbid obesity # History of EtOH abuse # Possible psychiatric disorder # Dvt ppx scds The timing of this note does not necessarily reflect the time of the patient was seen. Greatly appreciate consultation. Subjective Constitutional: Denies: no symptoms, chills, fever, malaise, weakness, other HEENT: Denies: no symptoms, eye pain, blurred vision, tearing, double vision, ear pain, ear discharge, nose pain, nose congestion, throat pain, throat swelling, mouth pain, mouth swelling, other Respiratory: Denies: no symptoms, cough, shortness of breath, SOB with excertion, SOB at rest, sputum, wheezing, other Gastrointestinal/Abdominal: Denies: no symptoms, abdomen distended, abdominal pain, black stools, tarry stools, blood in stool, constipated, diarrhea, difficulty swallowing, nausea, poor appetite, poor fluid intake, rectal bleeding , vomiting, other Genitourinary: Denies: no symptoms, burning, discharge, frequency, flank pain, hematuria, incontinence, pain, urgency, other Neurologic/Psychiatric: Denies: no symptoms, anxiety, depressed, emotional problems, headache, numbness, paresthesia, pre-existing deficit, seizure, tingling, tremors, weakness, other Endocrine: Denies: no symptoms, excessive sweating, flushing, intolerance to cold, intolerance to heat, increased hunger, increased thirst, increased urine, unexplained weight gain, unexplained weight loss, other Allergies: Coded Allergies: No Known Allergies (Unverified , 11/24/19) Subjective 11/27 more arousable on venturi mask, started on iv iron, plt lower 11/28 meds noted, no bleeding, doyle rn, on venturi mask, labs noted 11/29 small amount of bleeding, no night sweats, doyle rn, hgb 7.7 12/01 labs reviewed, on vnac, cbc is noted, no bleeding Objective Objective Current Medications Medications (Trade) Dose Ordered Sig/Brina Route PRN Reason Start Time Stop Time Status Last Admin Dose Admin Acetaminophen (Tylenol) 650 mg Q8H PRN NG Mild Pain (Pain Scale 1-3) 11/27/19 08:30 12/27/19 08:29 Acetaminophen/ Hydrocodone Bitart ([place] 10/325) 1 tab Q8H PRN ORAL Severe Pain (Pain Scale 7-10) 11/27/19 08:30 12/04/19 08:29 11/29/19 21:46 Acetaminophen/ Hydrocodone Bitart ([place] 5/325) 1 tab Q8H PRN ORAL Moderate Pain (Pain Scale 4-6) 11/27/19 08:30 12/04/19 08:29 11/30/19 22:43 Chlorhexidine Gluconate (Shonna-Hex 2%) 1 applic DAILY@1999 TOPIC 11/26/19 20:00 02/24/20 19:59 12/01/19 20:38 Docusate Sodium (Colace) 100 mg THREE TIMES A DAY ORAL 11/28/19 18:00 12/28/19 17:59 12/02/19 08:47 Epoetin Zay (Epoetin Zay(ESRD on dialysis)) 10,000 unit TUE-TUE-TUE SUBQ 11/26/19 21:00 02/24/20 20:59 11/30/19 21:21 Morphine Sulfate (Morphine Sulfate) 1 mg Q8H PRN IVP Breakthrough Pain 12/01/19 18:30 12/08/19 18:29 Pantoprazole (Protonix) 40 mg EVERY 12 HOURS ORAL 11/28/19 21:00 12/28/19 20:59 12/02/19 08:44 Polyethylene Glycol (Miralax) 17 gm BEDTIME ORAL 11/27/19 21:00 12/27/19 20:59 12/01/19 20:38 Sevelamer Carbonate (Renvela) 2,400 mg THREE TIMES A DAY ORAL 12/01/19 13:00 02/26/20 17:59 12/02/19 08:45 Thiamine HCl (Vitamin B1) 100 mg DAILY ORAL 11/29/19 09:00 12/29/19 08:59 12/02/19 08:45 Vancomycin HCl (Vanco pharmacy to dose) 1 ea DAILY PRN MISC Per rx protocol 11/30/19 11:30 12/30/19 11:29 Last 24 Hour Vital Signs Date Time Temp Pulse Resp B/P (MAP) Pulse Ox O2 Delivery O2 Flow Rate FiO2 12/02/19 12:00 10.0 45 12/02/19 12:00 96 12/02/19 12:00 Venturi Mask 10.0 12/02/19 09:00 10.0 45 12/02/19 08:00 Venturi Mask 10.0 12/02/19 08:00 97.5 90 24 112/43 (66) 92 12/02/19 07:40 90 12/02/19 04:00 Venturi Mask 8.0 12/02/19 04:00 8.0 40 12/02/19 04:00 97.7 89 24 101/57 (72) 97 12/02/19 03:31 93 12/02/19 00:00 98.1 94 24 116/64 (81) 93 12/02/19 00:00 8.0 40 12/02/19 00:00 96 12/02/19 00:00 Venturi Mask 8.0 12/01/19 20:00 8.0 40 12/01/19 20:00 97 8/1/20 20:00 Venturi Mask 8.0 12/01/19 20:00 97.6 99 24 107/55 (72) 93 12/01/19 19:00 95 Venturi Mask 10.0 45 12/01/19 16:00 94 12/01/19 16:00 8.0 40 12/01/19 16:00 Venturi Mask 8.0 12/01/19 16:00 98.1 96 24 107/51 (69) 96 12/01/19 12:00 8.0 40 12/01/19 12:00 99 12/01/19 12:00 Venturi Mask 8.0 12/01/19 12:00 98.8 96 28 108/61 (77) 96 12/01/19 08:00 96 12/01/19 08:00 97.0 94 25 116/58 (77) 97 12/01/19 08:00 Venturi Mask 8.0 12/01/19 08:00 8.0 40 12/01/19 05:13 Venturi Mask 8.0 12/01/19 04:00 8.0 40 12/01/19 04:00 98.0 77 20 97/57 (70) 100 12/01/19 04:00 Venturi Mask 8.0 12/01/19 03:37 91 12/01/19 00:00 90 12/01/19 00:00 98.2 85 20 111/50 (70) 100 12/01/19 00:00 Venturi Mask 8.0 11/30/19 20:00 Venturi Mask 8.0 11/30/19 20:00 8.0 40 11/30/19 20:00 87 11/30/19 20:00 98.0 83 20 98/48 (65) 100 11/30/19 19:12 93 Venturi Mask 10.0 45 11/30/19 16:00 97.2 84 23 110/52 (71) 99 11/30/19 16:00 Venturi Mask 8.0 11/30/19 16:00 84 11/30/19 16:00 8.0 40 Intake and Output 12/01/19 12/02/19 19:00 07:00 Intake Total 300 ml 400 ml Output Total 1050 ml 850 ml Balance -750 ml -450 ml Intake Oral 300 ml 400 ml Output Urine Total 1050 ml 850 ml Hemodialysis UF 0 ml Labs Test 11/29/19 12:25 11/29/19 22:45 11/30/19 05:00 11/30/19 11:00 White Blood Count 22.0 K/UL (4.8-10.8) 28.8 K/UL (4.8-10.8) 27.2 K/UL (4.8-10.8) 29.6 K/UL (4.8-10.8) Red Blood Count 2.78 M/UL (4.20-5.40) 3.23 M/UL (4.20-5.40) 3.10 M/UL (4.20-5.40) 3.09 M/UL (4.20-5.40) Hemoglobin 6.2 G/DL (12.0-16.0) 8.1 G/DL (12.0-16.0) 7.7 G/DL (12.0-16.0) 7.7 G/DL (12.0-16.0) Hematocrit 20.2 % (37.0-47.0) 25.1 % (37.0-47.0) 24.2 % (37.0-47.0) 24.6 % (37.0-47.0) Mean Corpuscular Volume 73 FL (80-99) 78 FL (80-99) 78 FL (80-99) 80 FL (80- 99) Mean Corpuscular Hemoglobin 22.4 PG (27.0-31.0) 25.0 PG (27.0-31.0) 25.0 PG (27.0-31.0) 25.0 PG (27.0-31.0) Mean Corpuscular Hemoglobin Concent 30.8 G/DL (32.0-36.0) 32.2 G/DL (32.0-36.0) 31.9 G/DL (32.0-36.0) 31.4 G/DL (32.0-36.0) Red Cell Distribution Width 27.0 % (11.6-14.8) 26.4 % (11.6-14.8) 24.4 % (11.6-14.8) 26.0 % (11.6-14.8) Platelet Count 113 K/UL (150-450) 91 K/UL (150-450) 90 K/UL (150-450) 88 K/UL (150-450) Mean Platelet Volume 7.0 FL (6.5-10.1) 7.7 FL (6.5-10.1) 7.1 FL (6.5-10.1) 7.1 FL (6.5-10.1) Neutrophils (%) (Auto) % (45.0-75.0) % (45.0-75.0) % (45.0-75.0) % (45.0- 75.0) Lymphocytes (%) (Auto) % (20.0-45.0) % (20.0-45.0) % (20.0-45.0) % (20.0- 45.0) Monocytes (%) (Auto) % (1.0-10.0) % (1.0-10.0) % (1.0-10.0) % (1.0-10.0) Eosinophils (%) (Auto) % (0.0-3.0) % (0.0-3.0) % (0.0-3.0) % (0.0-3.0) Basophils (%) (Auto) % (0.0-2.0) % (0.0-2.0) % (0.0-2.0) % (0.0-2.0) Differential Total Cells Counted 100 100 100 100 Neutrophils % (Manual) 84 % (45-75) 84 % (45-75) 94 % (45-75) 86 % (45-75) Lymphocytes % (Manual) 6 % (20-45) 10 % (20-45) 3 % (20-45) 4 % (20-45) Monocytes % (Manual) 8 % (1-10) 6 % (1-10) 3 % (1-10) 5 % (1-10) Eosinophils % (Manual) 2 % (0-3) 0 % (0-3) 0 % (0-3) 1 % (0-3) Basophils % (Manual) 0 % (0-2) 0 % (0-2) 0 % (0-2) 0 % (0-2) Band Neutrophils 0 % (0-8) 0 % (0-8) 0 % (0-8) 4 % (0-8) Platelet Estimate Decreased Decreased Decreased Decreased Platelet Morphology Normal Normal Normal Normal Polychromasia 1+ 2+ 2+ Hypochromasia 2+ 1+ 1+ Anisocytosis 3+ 3+ 3+ Microcytosis 1+ 1+ Sodium Level 139 MMOL/L (136-145) Potassium Level 5.2 MMOL/L (3.5-5.1) Chloride Level 101 MMOL/L (98-107) Carbon Dioxide Level 29 MMOL/L (21-32) Anion Gap 10 mmol/L (5-15) Blood Urea Nitrogen 73 mg/dL (7-18) Creatinine 7.7 MG/DL (0.55-1.30) Estimat Glomerular Filtration Rate 5.2 mL/min (>60) Glucose Level 93 MG/DL (74-106) Calcium Level 7.2 MG/DL (8.5-10.1) Phosphorus Level 7.6 MG/DL (2.5-4.9) Magnesium Level 2.4 MG/DL (1.8-2.4) Total Bilirubin 0.5 MG/DL (0.2-1.0) Aspartate Amino Transf (AST/SGOT) 32 U/L (15-37) Alanine Aminotransferase (ALT/SGPT) 22 U/L (12-78) Alkaline Phosphatase 85 U/L (46-116) Total Protein 4.7 G/DL (6.4-8.2) Albumin 1.3 G/DL (3.4-5.0) Globulin 3.4 g/dL Albumin/Globulin Ratio 0.4 (1.0-2.7) Random Vancomycin Level 7.3 ug/mL Test 11/30/19 16:30 12/01/19 04:55 12/01/19 11:55 12/01/19 12:09 White Blood Count 31.4 K/UL (4.8-10.8) 35.1 K/UL (4.8-10.8) 39.7 K/UL (4.8-10.8) Red Blood Count 2.70 M/UL (4.20-5.40) 3.38 M/UL (4.20-5.40) 3.33 M/UL (4.20-5.40) Hemoglobin 6.5 G/DL (12.0-16.0) 9.0 G/DL (12.0-16.0) 8.9 G/DL (12.0-16.0) Hematocrit 21.2 % (37.0-47.0) 28.1 % (37.0-47.0) 28.2 % (37.0-47.0) Mean Corpuscular Volume 79 FL (80-99) 83 FL (80-99) 85 FL (80-99) Mean Corpuscular Hemoglobin 24.3 PG (27.0-31.0) 26.6 PG (27.0-31.0) 26.7 PG (27.0-31.0) Mean Corpuscular Hemoglobin Concent 30.9 G/DL (32.0-36.0) 31.9 G/DL (32.0-36.0) 31.6 G/DL (32.0-36.0) Red Cell Distribution Width 26.1 % (11.6-14.8) 21.5 % (11.6-14.8) 22.4 % (11.6-14.8) Platelet Count 78 K/UL (150-450) 76 K/UL (150-450) 68 K/UL (150-450) Mean Platelet Volume 7.6 FL (6.5-10.1) 7.9 FL (6.5-10.1) 8.1 FL (6.5-10.1) Neutrophils (%) (Auto) % (45.0-75.0) % (45.0-75.0) % (45.0-75.0) Lymphocytes (%) (Auto) % (20.0-45.0) % (20.0-45.0) % (20.0-45.0) Monocytes (%) (Auto) % (1.0-10.0) % (1.0-10.0) % (1.0-10.0) Eosinophils (%) (Auto) % (0.0-3.0) % (0.0-3.0) % (0.0-3.0) Basophils (%) (Auto) % (0.0-2.0) % (0.0-2.0) % (0.0-2.0) Differential Total Cells Counted 100 100 100 Neutrophils % (Manual) 83 % (45-75) 88 % (45-75) 96 % (45-75) Lymphocytes % (Manual) 6 % (20-45) 5 % (20-45) 2 % (20-45) Monocytes % (Manual) 5 % (1-10) 6 % (1-10) 2 % (1-10) Eosinophils % (Manual) 1 % (0-3) 1 % (0-3) 0 % (0-3) Basophils % (Manual) 0 % (0-2) 0 % (0-2) 0 % (0-2) Band Neutrophils 5 % (0-8) 0 % (0-8) 0 % (0-8) Platelet Estimate Decreased Decreased Decreased Platelet Morphology Normal Normal Normal Polychromasia 2+ Hypochromasia 2+ 2+ 2+ Anisocytosis 3+ 3+ 3+ Sodium Level 137 MMOL/L (136-145) Potassium Level 5.2 MMOL/L (3.5-5.1) Chloride Level 99 MMOL/L (98-107) Carbon Dioxide Level 25 MMOL/L (21-32) Anion Gap 13 mmol/L (5-15) Blood Urea Nitrogen 77 mg/dL (7-18) Creatinine 7.5 MG/DL (0.55-1.30) Estimat Glomerular Filtration Rate 5.3 mL/min (>60) Glucose Level 72 MG/DL (74-106) Calcium Level 7.3 MG/DL (8.5-10.1) Phosphorus Level 8.1 MG/DL (2.5-4.9) Magnesium Level 2.4 MG/DL (1.8-2.4) Total Bilirubin 0.6 MG/DL (0.2-1.0) Aspartate Amino Transf (AST/SGOT) 34 U/L (15-37) Alanine Aminotransferase (ALT/SGPT) 18 U/L (12-78) Alkaline Phosphatase 102 U/L (46-116) Total Protein 5.0 G/DL (6.4-8.2) Albumin 1.3 G/DL (3.4-5.0) Globulin 3.7 g/dL Albumin/Globulin Ratio 0.4 (1.0-2.7) POC Whole Blood Glucose 95 MG/DL (74-106) Test 12/01/19 18:42 12/01/19 20:10 12/02/19 03:22 12/02/19 11:49 POC Whole Blood Glucose 86 MG/DL (74-106) 167 MG/DL (74-106) White Blood Count 41.7 K/UL (4.8-10.8) 33.0 K/UL (4.8-10.8) Red Blood Count 3.09 M/UL (4.20-5.40) 3.02 M/UL (4.20-5.40) Hemoglobin 8.2 G/DL (12.0-16.0) 8.0 G/DL (12.0-16.0) Hematocrit 25.7 % (37.0-47.0) 25.4 % (37.0-47.0) Mean Corpuscular Volume 83 FL (80-99) 84 FL (80-99) Mean Corpuscular Hemoglobin 26.6 PG (27.0-31.0) 26.6 PG (27.0-31.0) Mean Corpuscular Hemoglobin Concent 31.9 G/DL (32.0-36.0) 31.6 G/DL (32.0-36.0) Red Cell Distribution Width 23.9 % (11.6-14.8) 22.4 % (11.6-14.8) Platelet Count 57 K/UL (150-450) 62 K/UL (150-450) Mean Platelet Volume 8.5 FL (6.5-10.1) 7.7 FL (6.5-10.1) Neutrophils (%) (Auto) % (45.0-75.0) % (45.0-75.0) Lymphocytes (%) (Auto) % (20.0-45.0) % (20.0-45.0) Monocytes (%) (Auto) % (1.0-10.0) % (1.0-10.0) Eosinophils (%) (Auto) % (0.0-3.0) % (0.0-3.0) Basophils (%) (Auto) % (0.0-2.0) % (0.0-2.0) Differential Total Cells Counted 100 100 Neutrophils % (Manual) 91 % (45-75) 93 % (45-75) Lymphocytes % (Manual) 3 % (20-45) 4 % (20-45) Monocytes % (Manual) 5 % (1-10) 3 % (1-10) Eosinophils % (Manual) 0 % (0-3) 0 % (0-3) Basophils % (Manual) 1 % (0-2) 0 % (0-2) Band Neutrophils 0 % (0-8) 0 % (0-8) Smudge Cells Occasional Platelet Estimate Decreased Decreased Platelet Morphology Normal Normal Hypochromasia 2+ 2+ Anisocytosis 2+ 3+ Sodium Level 141 MMOL/L (136-145) Potassium Level 4.4 MMOL/L (3.5-5.1) Chloride Level 101 MMOL/L (98-107) Carbon Dioxide Level 25 MMOL/L (21-32) Anion Gap 16 mmol/L (5-15) Blood Urea Nitrogen 62 mg/dL (7-18) Creatinine 6.7 MG/DL (0.55-1.30) Estimat Glomerular Filtration Rate 6.1 mL/min (>60) Glucose Level 65 MG/DL (74-106) Uric Acid 7.8 MG/DL (2.6-7.2) Calcium Level 7.5 MG/DL (8.5-10.1) Phosphorus Level 7.3 MG/DL (2.5-4.9) Magnesium Level 2.3 MG/DL (1.8-2.4) Total Bilirubin 0.5 MG/DL (0.2-1.0) Aspartate Amino Transf (AST/SGOT) 32 U/L (15-37) Alanine Aminotransferase (ALT/SGPT) 18 U/L (12-78) Alkaline Phosphatase 106 U/L (46-116) C-Reactive Protein, Quantitative 29.6 mg/dL (0.00-0.90) Pro-B-Type Natriuretic Peptide 2907 pg/mL (0-125) Total Protein 5.0 G/DL (6.4-8.2) Albumin 1.2 G/DL (3.4-5.0) Globulin 3.8 g/dL Albumin/Globulin Ratio 0.3 (1.0-2.7) Random Vancomycin Level 14.8 ug/mL Height (Feet): 5 Height (Inches): 4.00 Weight (Pounds): 241 Objective Vitals: reviewed General: NAD HEENT: nc, at Neck: supple Chest: clear breath sounds bilaterally Cardiovascular: RRR, no s3, s4 Abdomen: soft, nontender, nd Extremities: no cce, normal range of motion Neuro: alert and oriented Holland Miranda MD Dec 02, 2019 12:25
[2019-12-02 12:49] LABS: HEMATOCRIT 26.5 % (37.0-47.0); HEMOGLOBIN 8.5 G/DL (12.0-16.0); MEAN CORPUSCULAR VOLUME 85 FL (80-99); PLATELET COUNT 68 K/UL (150-450); RED BLOOD COUNT 3.12 M/UL (4.20-5.40); RED CELL DISTRIBUTION WIDTH 23.3 % (11.6-14.8)
[2019-12-02 12:55] LABS: WHITE BLOOD COUNT 29.6 K/UL (4.8-10.8)
--- NOTE | 2019-12-02 12:56 | Surgery Progress Note ---
Surgery Progress Note Subjective Procedure Performed right femoral temporary Hemodialysis catheter insertion Additional Comments had HD via new line yesterday labs noted family at bedside exam stable Objective Last 24 Hour Vital Signs Date Time Temp Pulse Resp B/P (MAP) Pulse Ox O2 Delivery O2 Flow Rate FiO2 12/02/19 12:00 10.0 45 12/02/19 12:00 96 12/02/19 12:00 Venturi Mask 10.0 12/02/19 12:00 97.7 96 23 124/65 (84) 93 12/02/19 09:00 10.0 45 12/02/19 08:00 Venturi Mask 10.0 12/02/19 08:00 97.5 90 24 112/43 (66) 92 12/02/19 07:40 90 12/02/19 04:00 Venturi Mask 8.0 12/02/19 04:00 8.0 40 12/02/19 04:00 97.7 89 24 101/57 (72) 97 12/02/19 03:31 93 12/02/19 00:00 98.1 94 24 116/64 (81) 93 12/02/19 00:00 8.0 40 12/02/19 00:00 96 12/02/19 00:00 Venturi Mask 8.0 12/01/19 20:00 8.0 40 12/01/19 20:00 97 12/01/19 20:00 Venturi Mask 8.0 12/01/19 20:00 97.6 99 24 107/55 (72) 93 12/01/19 19:00 95 Venturi Mask 10.0 45 12/01/19 16:00 94 12/01/19 16:00 8.0 40 12/01/19 16:00 Venturi Mask 8.0 12/01/19 16:00 98.1 96 24 107/51 (69) 96 I&O Intake and Output 12/01/19 12/02/19 19:00 07:00 Intake Total 300 ml 400 ml Output Total 1050 ml 850 ml Balance -750 ml -450 ml Intake Oral 300 ml 400 ml Output Urine Total 1050 ml 850 ml Hemodialysis UF 0 ml Dressing: saturated Wound: clean Cardiovascular: RSR Respiratory: decreased breath sounds Abdomen: soft, non-tender, present bowel sounds Extremities: edema, no cyanosis Laboratory Tests Test 12/01/19 18:42 12/01/19 20:10 12/02/19 03:22 12/02/19 11:49 POC Whole Blood Glucose 86 MG/DL (74-106) 167 MG/DL (74-106) H White Blood Count 41.7 K/UL (4.8-10.8) *H 33.0 K/UL (4.8-10.8) *H Red Blood Count 3.09 M/UL (4.20-5.40) L 3.02 M/UL (4.20-5.40) L Hemoglobin 8.2 G/DL (12.0-16.0) L 8.0 G/DL (12.0-16.0) L Hematocrit 25.7 % (37.0-47.0) L 25.4 % (37.0-47.0) L Mean Corpuscular Volume 83 FL (80-99) 84 FL (80-99) Mean Corpuscular Hemoglobin 26.6 PG (27.0-31.0) L 26.6 PG (27.0-31.0) L Mean Corpuscular Hemoglobin Concent 31.9 G/DL (32.0-36.0) L 31.6 G/DL (32.0-36.0) L Red Cell Distribution Width 23.9 % (11.6-14.8) H 22.4 % (11.6-14.8) H Platelet Count 57 K/UL (150-450) L 62 K/UL (150-450) L Mean Platelet Volume 8.5 FL (6.5-10.1) 7.7 FL (6.5-10.1) Neutrophils (%) (Auto) % (45.0-75.0) % (45.0-75.0) Lymphocytes (%) (Auto) % (20.0-45.0) % (20.0-45.0) Monocytes (%) (Auto) % (1.0-10.0) % (1.0-10.0) Eosinophils (%) (Auto) % (0.0-3.0) % (0.0-3.0) Basophils (%) (Auto) % (0.0-2.0) % (0.0-2.0) Differential Total Cells Counted 100 100 Neutrophils % (Manual) 91 % (45-75) H 93 % (45-75) H Lymphocytes % (Manual) 3 % (20-45) L 4 % (20-45) L Monocytes % (Manual) 5 % (1-10) 3 % (1-10) Eosinophils % (Manual) 0 % (0-3) 0 % (0-3) Basophils % (Manual) 1 % (0-2) 0 % (0-2) Band Neutrophils 0 % (0-8) 0 % (0-8) Smudge Cells Occasional Platelet Estimate Decreased L Decreased L Platelet Morphology Normal Normal Hypochromasia 2+ 2+ Anisocytosis 2+ 3+ Sodium Level 141 MMOL/L (136-145) Potassium Level 4.4 MMOL/L (3.5-5.1) Chloride Level 101 MMOL/L (98-107) Carbon Dioxide Level 25 MMOL/L (21-32) Anion Gap 16 mmol/L (5-15) H Blood Urea Nitrogen 62 mg/dL (7-18) H Creatinine 6.7 MG/DL (0.55-1.30) H Estimat Glomerular Filtration Rate 6.1 mL/min (>60) Glucose Level 65 MG/DL (74-106) L Uric Acid 7.8 MG/DL (2.6-7.2) H Calcium Level 7.5 MG/DL (8.5-10.1) L Phosphorus Level 7.3 MG/DL (2.5-4.9) H Magnesium Level 2.3 MG/DL (1.8-2.4) Total Bilirubin 0.5 MG/DL (0.2-1.0) Aspartate Amino Transf (AST/SGOT) 32 U/L (15-37) Alanine Aminotransferase (ALT/SGPT) 18 U/L (12-78) Alkaline Phosphatase 106 U/L (46-116) C-Reactive Protein, Quantitative 29.6 mg/dL (0.00-0.90) H Pro-B-Type Natriuretic Peptide 2907 pg/mL (0-125) H Total Protein 5.0 G/DL (6.4-8.2) L Albumin 1.2 G/DL (3.4-5.0) L Globulin 3.8 g/dL Albumin/Globulin Ratio 0.3 (1.0-2.7) L Random Vancomycin Level 14.8 ug/mL Test 12/02/19 12:34 White Blood Count Pending Red Blood Count Pending Hemoglobin Pending Hematocrit Pending Mean Corpuscular Volume Pending Mean Corpuscular Hemoglobin Pending Mean Corpuscular Hemoglobin Concent Pending Red Cell Distribution Width Pending Platelet Count Pending Mean Platelet Volume Pending Neutrophils (%) (Auto) Pending Lymphocytes (%) (Auto) Pending Monocytes (%) (Auto) Pending Eosinophils (%) (Auto) Pending Basophils (%) (Auto) Pending Plan Problems: (1) Anemia (2) Encephalopathy acute (3) Acute respiratory failure with hypoxia (4) Hyperkalemia (5) Sepsis Assessment & Plan: Leukocytosis anemia hyperkalemia abnormal labs HD catheter placed received dialysis and slowly potassium improved. Plan for repeat dialysis ordered. IV antibiotics per infectious disease Patient is alert awake but confused. Slowly improving No hematoma or bleeding identified Site looks clean We will continue with HD on a sure if renal function will improve may need permacath CT reviewed edema noted lymph nodes noted likely reactive Thank you for let me participate patient's care with follow with recommendations s/p filter placement stable acute blood loss anemia vaginal bleeding coags heme input transfuse prbc trend h/h will monitor for bleeding thank you HD line change 11/30 ABDOMEN: Liver: Unremarkable. Gallbladder and bile ducts: Unremarkable. No calcified stones. No ductal dilation. Pancreas: Unremarkable. No ductal dilation. Spleen: Unremarkable. No splenomegaly. Adrenals: Unremarkable. No mass. Kidneys and ureters: Bilateral low-grade hydronephrosis. No radiopaque stones in the urinary tract identified except for nonobstructing 3 mm stone in the inferior pole left kidney. Stomach and bowel: Scattered colonic diverticuli. No obstruction. No mucosal thickening. PELVIS: Appendix: No findings to suggest acute appendicitis. Bladder: The urinary bladder is decompressed by an indwelling Kaminski catheter No stones. Reproductive: Unremarkable as visualized. ABDOMEN and PELVIS: Intraperitoneal space: Unremarkable. No free air. No significant fluid collection. Bones/joints: No acute fracture. No dislocation. Soft tissues: Anasarca. Vasculature: Unremarkable. No abdominal aortic aneurysm. Lymph nodes: Enlarged left superficial inguinal lymph node measuring 2 cm short axis There are bilateral enlarged external iliac lymph nodes, measuring 2.9 cm x 5.1 cm on the left and 2.7 x 2.0 cm on the right. Other findings: Beam hardening from patient's abdominal girth degrades detail. IMPRESSION: 1. Enlarged pelvic lymph nodes could reflect reactive changes from cellulitis in the setting of generalized bony wall edema, or other acute inflammatory changes but neoplasm such as lymphomas not excluded. Correlate clinically. Ultrasound of the pelvis could be considered to help distinguish patient's ovaries from presumed pelvic adenopathy. 2. Mild bilateral hydronephrosis, with a Kaminski catheter in the urinary bladder. Correlate with bladder catheter function. DAILY ESTIMATED NEEDS: Needs based on obesity, ARF + HD/ 67kg abw 22-25 kcals/kg [id number] total kcals 1.2-1.8 w/ HD g protein/kg 81-120 g total protein Fluids per MD mL/kg . total fluid mLs NUTRITION DIAGNOSIS: Altered nutrition related lab values R/T ARF, pre-diabetes as evidenced by elev BUN (157 -> 77 trend down), elev creat (142 -> 7.5), now on HD, elev phos (8.1), elev mag (2.5-> wnl). A1C of 6.0 w/ elev BGs (154 173 146-> now improved). CURRENT DIET:RENAL, soft easy chew w/ NTL PO DIET RECOMMENDATIONS: RENAL, CCHO LOW/ texture per [employer] ADDITIONAL RECOMMENDATIONS: * Calibrated bedscale wt for accurate CBW- w/ added p200 mattress + pump * Phos binders w/ meals- now on Renvela TID * Monitor renal fxn and continuity of HD- creat (14.2 -> 7.5) * Monitor BGs, need for hypoglycemics * Monitor PO intake and tolerance closely * Nephrovite x 1 as supplement . (6) ARF (acute renal failure) (7) CAP (community acquired pneumonia) (8) Serum lipase elevation (9) Obesity (BMI 30-39.9) Angelo Naik Dec 02, 2019 12:56
--- NOTE | 2019-12-02 13:37 | Nephrology Progress Note ---
Assessment/Plan Problem List: (1) ARF (acute renal failure) (2) Sepsis (3) CAP (community acquired pneumonia) (4) Hyperkalemia (5) Encephalopathy acute (6) Anemia (7) Alcohol abuse Assessment: Long history as per daughter (8) Serum lipase elevation (9) Obesity (BMI 30-39.9) (10) Fatty liver Assessment Acute renal failure and hyperkalemia Most likely underlying chronic kidney disease Sepsis, pneumonia Toxic metabolic encephalopathy Severe anemia Morbid obesity Acute hypoxemic respiratory failure Elevated lipase possible pancreatitis Enlarged pelvic lymph nodes Anasarca History of EtOH abuse Possible psychiatric disorder Plan December 01: Last dialyzed yesterday. Patient confused. Labs reviewed. Hemoglobin stable. No more vaginal bleeding reported. Leukocytosis persists continue per consultants November 30: Patient received dialysis only 40 minutes yesterday as the dialysis catheter was clotted. Dialysis catheter was changed by general surgery today and she is going to receive dialysis again today. Labs reviewed. Medication reviewed. Patient's daughter Lynne in the room I had a long conversation with her. Continue per consultants. STAFFING SPECIALIST Note: 69yo with severe acute postmenopausal bleeding in the setting of morbid obesity , ESRD, alcohol abuse, sepsis, and recent IVC filter placement for LE DVT. - DDx of bleeding includes underlying coagulopathy, unopposed estrogen, malignancy - US was not able to visualize uterine lining clearly - Transfuse blood products as indicated - - Patient is an extremely poor surgical candidate at this time given her SOB, active DVT, sepsis, ESRD, and alcoholic encephalopathy - Surgical management would be as a last resort only, and patient would need medical stabilization and clearance for hysteroscopy, D&C, and endometrial ablation - Other options would include possible uterine artery embolization, which would likely require urgent transfer to a higher level of care - I do not believe IR performs this procedure at [facility] [place] - Would consider Progesterone treatment with Provera, however patient has active DVT with IVC filter in place and per guidelines Provera is contraindicated with active DVT - Plan of care discussed with Dr. Schroeder - Please contact my office again with any additional concerns at [phone] November 29: Dialysis yesterday was not done due to massive vaginal bleed. Patient was transfused 2 units of packed RBCs. Patient due for placement of tunneled permacath. Will attempt dialysis today. Continue to transfuse as needed. Vaginal bleeding etiology to be worked up by specialist. November 28: Due for dialysis today. Leukocytosis persist. Plan for placement of a permacath when stable from ID standpoint of view. November 27: Plan for dialysis tomorrow. White BC is 20,000. Thiamine and Protonix was changed to p.o. Renvela added as phosphorus binder November 26: Due for dialysis today. Leukocytosis persists. Continue per consultants. November 25. Patient was dialyzed 2 days in a row. Will order dialysis tomorrow. Leukocytosis persists. Patient on antibiotics. November 24: Patient was dialyzed yesterday. Serum potassium now within normal range. ABG improved. Discussed with RN. IV changed. Dialysis ordered again today. IV thiamine started. Ativan for agitation ordered. Recheck labs tomorrow. Continue per consultants. Amphojel as phosphorus binder also started. Previously: Anemia work-up ordered IV Venofer, subcu Epogen ordered Continue to monitor renal parameters Per orders Subjective ROS Limited/Unobtainable: No Constitutional: Reports: malaise Objective Objective Last 24 Hour Vital Signs Date Time Temp Pulse Resp B/P (MAP) Pulse Ox O2 Delivery O2 Flow Rate FiO2 12/02/19 12:00 10.0 45 12/02/19 12:00 96 12/02/19 12:00 Venturi Mask 10.0 12/02/19 12:00 97.7 96 23 124/65 (84) 93 12/02/19 09:00 10.0 45 12/02/19 08:00 Venturi Mask 10.0 12/02/19 08:00 97.5 90 24 112/43 (66) 92 12/02/19 07:40 90 12/02/19 04:00 Venturi Mask 8.0 12/02/19 04:00 8.0 40 12/02/19 04:00 97.7 89 24 101/57 (72) 97 12/02/19 03:31 93 12/02/19 00:00 98.1 94 24 116/64 (81) 93 12/02/19 00:00 8.0 40 12/02/19 00:00 96 12/02/19 00:00 Venturi Mask 8.0 12/01/19 20:00 8.0 40 12/01/19 20:00 97 12/01/19 20:00 Venturi Mask 8.0 12/01/19 20:00 97.6 99 24 107/55 (72) 93 12/01/19 19:00 95 Venturi Mask 10.0 45 12/01/19 16:00 94 12/01/19 16:00 8.0 40 12/01/19 16:00 Venturi Mask 8.0 12/01/19 16:00 98.1 96 24 107/51 (69) 96 Intake and Output 12/01/19 12/02/19 19:00 07:00 Intake Total 300 ml 400 ml Output Total 1050 ml 850 ml Balance -750 ml -450 ml Intake Oral 300 ml 400 ml Output Urine Total 1050 ml 850 ml Hemodialysis UF 0 ml Laboratory Tests 12/01/19 18:42: POC Whole Blood Glucose 86 12/01/19 20:10: White Blood Count 41.7*H, Red Blood Count 3.09L, Hemoglobin 8.2L, Hematocrit 25.7L, Mean Corpuscular Volume 83, Mean Corpuscular Hemoglobin 26.6L, Mean Corpuscular Hemoglobin Concent 31.9L, Red Cell Distribution Width 23.9H, Platelet Count 57L, Mean Platelet Volume 8.5, Neutrophils (%) (Auto) , Lymphocytes (%) (Auto) , Monocytes (%) (Auto) , Eosinophils (%) (Auto) , Basophils (%) (Auto) , Differential Total Cells Counted 100, Neutrophils % ( Manual) 91H, Lymphocytes % (Manual) 3L, Monocytes % (Manual) 5, Eosinophils % ( Manual) 0, Basophils % (Manual) 1, Band Neutrophils 0, Smudge Cells Occasional, Platelet Estimate DecreasedL, Platelet Morphology Normal, Hypochromasia 2+, Anisocytosis 2+ 12/02/19 03:22: White Blood Count 33.0*H, Red Blood Count 3.02L, Hemoglobin 8.0L, Hematocrit 25.4L, Mean Corpuscular Volume 84, Mean Corpuscular Hemoglobin 26.6L, Mean Corpuscular Hemoglobin Concent 31.6L, Red Cell Distribution Width 22.4H, Platelet Count 62L, Mean Platelet Volume 7.7, Neutrophils (%) (Auto) , Lymphocytes (%) (Auto) , Monocytes (%) (Auto) , Eosinophils (%) (Auto) , Basophils (%) (Auto) , Differential Total Cells Counted 100, Neutrophils % ( Manual) 93H, Lymphocytes % (Manual) 4L, Monocytes % (Manual) 3, Eosinophils % ( Manual) 0, Basophils % (Manual) 0, Band Neutrophils 0, Platelet Estimate DecreasedL, Platelet Morphology Normal, Hypochromasia 2+, Anisocytosis 3+, Sodium Level 141, Potassium Level 4.4, Chloride Level 101, Carbon Dioxide Level 25, Anion Gap 16H, Blood Urea Nitrogen 62H, Creatinine 6.7H, Estimat Glomerular Filtration Rate 6.1, Glucose Level 65L, Uric Acid 7.8H, Calcium Level 7.5L, Phosphorus Level 7.3H, Magnesium Level 2.3, Total Bilirubin 0.5, Aspartate Amino Transf (AST/SGOT) 32, Alanine Aminotransferase (ALT/SGPT) 18, Alkaline Phosphatase 106, C-Reactive Protein, Quantitative 29.6H, Pro-B-Type Natriuretic Peptide 2907H, Total Protein 5.0L, Albumin 1.2L, Globulin 3.8, Albumin/Globulin Ratio 0.3L, Random Vancomycin Level 14.8 12/02/19 11:49: POC Whole Blood Glucose 167H 12/02/19 12:34: White Blood Count 29.6*H, Red Blood Count 3.12L, Hemoglobin 8.5L, Hematocrit 26.5L, Mean Corpuscular Volume 85, Mean Corpuscular Hemoglobin 27.4, Mean Corpuscular Hemoglobin Concent 32.2, Red Cell Distribution Width 23.3H, Platelet Count 68L, Mean Platelet Volume 8.0, Neutrophils (%) (Auto) , Lymphocytes (%) (Auto) , Monocytes (%) (Auto) , Eosinophils (%) (Auto) , Basophils (%) (Auto) , Neutrophils % (Manual) [Pending], Lymphocytes % (Manual) [Pending], Platelet Estimate [Pending], Platelet Morphology [Pending] Height (Feet): 5 Height (Inches): 4.00 Weight (Pounds): 241 General Appearance: no apparent distress, confused Cardiovascular: tachycardia Respiratory/Chest: decreased breath sounds Abdomen: distended Objective No other change Jean-Pierre Garcia MD Dec 02, 2019 13:37
[2019-12-02 16:00] VITALS: BP 116/52
[2019-12-02 20:00] VITALS: BP 115/64
--- NOTE | 2019-12-02 20:34 | General Progress Note ---
Assessment/Plan Assessment/Plan: Assessment/Plan: 1. Acute renal failure. 2. Leukocytosis and thrombocytopenia 3. History of alcohol abuse. 4. Profound microcytic anemia. 5. Prior history of possible psychiatric disorder. 6. Elevated lipase. 7. Mild transaminitis. 8. Pelvic lymphadenopathy. 9. obesity 10. DVT s/p IVC filter placement 11. PNA 12. vaginal bleed Recommendations fu labs on oral diet stable H&H vag bleed>> improving speech eval appreciated HD per nephrology abx Subjective Allergies: Coded Allergies: No Known Allergies (Unverified , 11/24/19) Subjective Above noted no abdominal complaints eating OK Objective Last 24 Hour Vital Signs Date Time Temp Pulse Resp B/P (MAP) Pulse Ox O2 Delivery O2 Flow Rate FiO2 12/02/19 20:00 98.8 94 24 115/64 (81) 94 12/02/19 19:10 94 Venturi Mask 14.0 55 12/02/19 17:00 91 12/02/19 16:00 10.0 45 12/02/19 16:00 Venturi Mask 10.0 12/02/19 16:00 98.4 93 21 116/52 (73) 94 12/02/19 12:00 10.0 45 12/02/19 12:00 96 12/02/19 12:00 Venturi Mask 10.0 12/02/19 12:00 97.7 96 23 124/65 (84) 93 12/02/19 09:00 10.0 45 12/02/19 08:00 Venturi Mask 10.0 12/02/19 08:00 97.5 90 24 112/43 (66) 92 12/02/19 07:40 90 12/02/19 07:00 93 Venturi Mask 10.0 45 12/02/19 04:00 Venturi Mask 8.0 12/02/19 04:00 8.0 40 12/02/19 04:00 97.7 89 24 101/57 (72) 97 12/02/19 03:31 93 12/02/19 00:00 98.1 94 24 116/64 (81) 93 12/02/19 00:00 8.0 40 12/02/19 00:00 96 12/02/19 00:00 Venturi Mask 8.0 Intake and Output 12/01/19 12/02/19 19:00 07:00 Intake Total 300 ml 400 ml Output Total 1050 ml 850 ml Balance -750 ml -450 ml Intake Oral 300 ml 400 ml Output Urine Total 1050 ml 850 ml Hemodialysis UF 0 ml Laboratory Tests 12/02/19 03:22: White Blood Count 33.0*H, Red Blood Count 3.02L, Hemoglobin 8.0L, Hematocrit 25.4L, Mean Corpuscular Volume 84, Mean Corpuscular Hemoglobin 26.6L, Mean Corpuscular Hemoglobin Concent 31.6L, Red Cell Distribution Width 22.4H, Platelet Count 62L, Mean Platelet Volume 7.7, Neutrophils (%) (Auto) , Lymphocytes (%) (Auto) , Monocytes (%) (Auto) , Eosinophils (%) (Auto) , Basophils (%) (Auto) , Differential Total Cells Counted 100, Neutrophils % ( Manual) 93H, Lymphocytes % (Manual) 4L, Monocytes % (Manual) 3, Eosinophils % ( Manual) 0, Basophils % (Manual) 0, Band Neutrophils 0, Platelet Estimate DecreasedL, Platelet Morphology Normal, Hypochromasia 2+, Anisocytosis 3+, Sodium Level 141, Potassium Level 4.4, Chloride Level 101, Carbon Dioxide Level 25, Anion Gap 16H, Blood Urea Nitrogen 62H, Creatinine 6.7H, Estimat Glomerular Filtration Rate 6.1, Glucose Level 65L, Uric Acid 7.8H, Calcium Level 7.5L, Phosphorus Level 7.3H, Magnesium Level 2.3, Total Bilirubin 0.5, Aspartate Amino Transf (AST/SGOT) 32, Alanine Aminotransferase (ALT/SGPT) 18, Alkaline Phosphatase 106, C-Reactive Protein, Quantitative 29.6H, Pro-B-Type Natriuretic Peptide 2907H, Total Protein 5.0L, Albumin 1.2L, Globulin 3.8, Albumin/Globulin Ratio 0.3L, Random Vancomycin Level 14.8 12/02/19 11:49: POC Whole Blood Glucose 167H 12/02/19 12:34: White Blood Count 29.6*H, Red Blood Count 3.12L, Hemoglobin 8.5L, Hematocrit 26.5L, Mean Corpuscular Volume 85, Mean Corpuscular Hemoglobin 27.4, Mean Corpuscular Hemoglobin Concent 32.2, Red Cell Distribution Width 23.3H, Platelet Count 68L, Mean Platelet Volume 8.0, Neutrophils (%) (Auto) , Lymphocytes (%) (Auto) , Monocytes (%) (Auto) , Eosinophils (%) (Auto) , Basophils (%) (Auto) , Differential Total Cells Counted 100, Neutrophils % ( Manual) 94H, Lymphocytes % (Manual) 3L, Monocytes % (Manual) 3, Eosinophils % ( Manual) 0, Basophils % (Manual) 0, Band Neutrophils 0, Platelet Estimate Adequate, Platelet Morphology Normal, Hypochromasia 2+, Anisocytosis 3+ 12/02/19 17:08: POC Whole Blood Glucose 239H Height (Feet): 5 Height (Inches): 4.00 Weight (Pounds): 241 Objective Obese woman NCAT Supple CTA RR abd soft ND NT (++) edema David Gonzalez MD Dec 02, 2019 20:34
[2019-12-02] MEDS: Dyna-Hex 2% Top Sol 2oz TOPIC SCH (20:47)
[2019-12-02] MEDS: Miralax 17gm pkt ORAL SCH (20:47)
--- NOTE | 2019-12-02 22:24 | General Progress Note ---
Assessment/Plan Assessment/Plan: S, O: pt is awake , seems comfortable, seen and examined in step down unit. in mild sob. on Venturi mask PHYSICAL EXAMINATION:HEAD AND NECK: Atraumatic and normocephalic. CHEST: Diffuse bronchial breathing sounds.HEART: S1 and S2. Regular rate and rhythm. ABDOMEN: Soft. No organomegaly. Protuberant. No tenderness. MUSCULOSKELETAL: Right inguinal HD- access noted, No gross lateralized motor deficit. It is limited examination as the patient is not cooperative. b/l le edema and tenderness NEUROLOGIC: The patient is delirious. DIAGNOSTIC AND LABORATORY DATA: Imaging, Chest -CT dated November 26 Labs, dated December 01 reviewed ASSESSMENT: 1. Severe sepsis. 2. PNA- Bilateral 3. Hypoxemic respiratory failure. 3. Acute Anemia 5. Acute Menometrorrhagia 6. Hyperkalemia. 4. End-stage renal disease. 5. CHF, likely diagnosis. 6. Abnormal blood sugar. 7. Acute on chronic Microcytic anemia. 8. GI and DVT prophylaxis. 9. LE DVT- Bilateral PLAN OF CARE: contra indication for anticoagulation . D/W Hemonch regarding IVC notes form ID, Nephrology reviewed S/P IVC filter placement. Given the importance of diagnosis of PE in the risk stratification decision for mcfp ATC, will proceed with Chest CT-Angio No additional ATC at this time, pending stool occult test I called the daughter Piper and updated her about over medical cnd on November 27 around 2 PM D/w Dr Pedersen, Inspection Manager. Agree for current conservative mgt. Not medically stable for surgical or aggressive methods in controlling the Menometrorrhagia favorable response to PRBC-transfusion S/P insertion of the new temp- HD access in the groin, once clear by ID will proceed for Tunneled HD-access placement Subjective Allergies: Coded Allergies: No Known Allergies (Unverified , 11/24/19) Objective Last 24 Hour Vital Signs Date Time Temp Pulse Resp B/P (MAP) Pulse Ox O2 Delivery O2 Flow Rate FiO2 12/02/19 20:00 98.8 94 24 115/64 (81) 94 12/02/19 20:00 94 12/02/19 19:10 94 Venturi Mask 14.0 55 12/02/19 17:00 91 12/02/19 16:00 10.0 45 12/02/19 16:00 Venturi Mask 10.0 8/2/20 16:00 98.4 93 21 116/52 (73) 94 12/02/19 12:00 10.0 45 12/02/19 12:00 96 12/02/19 12:00 Venturi Mask 10.0 12/02/19 12:00 97.7 96 23 124/65 (84) 93 12/02/19 09:00 10.0 45 12/02/19 08:00 Venturi Mask 10.0 12/02/19 08:00 97.5 90 24 112/43 (66) 92 12/02/19 07:40 90 12/02/19 07:00 93 Venturi Mask 10.0 45 12/02/19 04:00 Venturi Mask 8.0 12/02/19 04:00 8.0 40 12/02/19 04:00 97.7 89 24 101/57 (72) 97 12/02/19 03:31 93 12/02/19 00:00 98.1 94 24 116/64 (81) 93 12/02/19 00:00 8.0 40 12/02/19 00:00 96 12/02/19 00:00 Venturi Mask 8.0 Intake and Output 12/01/19 12/02/19 19:00 07:00 Intake Total 300 ml 400 ml Output Total 1050 ml 850 ml Balance -750 ml -450 ml Intake Oral 300 ml 400 ml Output Urine Total 1050 ml 850 ml Hemodialysis UF 0 ml Laboratory Tests 12/02/19 03:22: White Blood Count 33.0*H, Red Blood Count 3.02L, Hemoglobin 8.0L, Hematocrit 25.4L, Mean Corpuscular Volume 84, Mean Corpuscular Hemoglobin 26.6L, Mean Corpuscular Hemoglobin Concent 31.6L, Red Cell Distribution Width 22.4H, Platelet Count 62L, Mean Platelet Volume 7.7, Neutrophils (%) (Auto) , Lymphocytes (%) (Auto) , Monocytes (%) (Auto) , Eosinophils (%) (Auto) , Basophils (%) (Auto) , Differential Total Cells Counted 100, Neutrophils % ( Manual) 93H, Lymphocytes % (Manual) 4L, Monocytes % (Manual) 3, Eosinophils % ( Manual) 0, Basophils % (Manual) 0, Band Neutrophils 0, Platelet Estimate DecreasedL, Platelet Morphology Normal, Hypochromasia 2+, Anisocytosis 3+, Sodium Level 141, Potassium Level 4.4, Chloride Level 101, Carbon Dioxide Level 25, Anion Gap 16H, Blood Urea Nitrogen 62H, Creatinine 6.7H, Estimat Glomerular Filtration Rate 6.1, Glucose Level 65L, Uric Acid 7.8H, Calcium Level 7.5L, Phosphorus Level 7.3H, Magnesium Level 2.3, Total Bilirubin 0.5, Aspartate Amino Transf (AST/SGOT) 32, Alanine Aminotransferase (ALT/SGPT) 18, Alkaline Phosphatase 106, C-Reactive Protein, Quantitative 29.6H, Pro-B-Type Natriuretic Peptide 2907H, Total Protein 5.0L, Albumin 1.2L, Globulin 3.8, Albumin/Globulin Ratio 0.3L, Random Vancomycin Level 14.8 12/02/19 11:49: POC Whole Blood Glucose 167H 12/02/19 12:34: White Blood Count 29.6*H, Red Blood Count 3.12L, Hemoglobin 8.5L, Hematocrit 26.5L, Mean Corpuscular Volume 85, Mean Corpuscular Hemoglobin 27.4, Mean Corpuscular Hemoglobin Concent 32.2, Red Cell Distribution Width 23.3H, Platelet Count 68L, Mean Platelet Volume 8.0, Neutrophils (%) (Auto) , Lymphocytes (%) (Auto) , Monocytes (%) (Auto) , Eosinophils (%) (Auto) , Basophils (%) (Auto) , Differential Total Cells Counted 100, Neutrophils % ( Manual) 94H, Lymphocytes % (Manual) 3L, Monocytes % (Manual) 3, Eosinophils % ( Manual) 0, Basophils % (Manual) 0, Band Neutrophils 0, Platelet Estimate Adequate, Platelet Morphology Normal, Hypochromasia 2+, Anisocytosis 3+ 12/02/19 17:08: POC Whole Blood Glucose 239H Height (Feet): 5 Height (Inches): 4.00 Weight (Pounds): 241 Rebecca Schroeder MD Dec 02, 2019 22:24
--- NOTE | 2019-12-02 23:05 | Cardiology Progress Note ---
Assessment/Plan Assessment/Plan 1. Acute diastolic congestive heart failure, aggressive hemodialysis for decrease of preload. 2. Anemia of blood loss likely due to vaginal bleed. 3. Alcohol abuse. 4. Acute kidney injury. 5. Dyslipidemia with low HDL. 6. Sepsis with B/L PNA, COVID-19 negative. Subjective Subjective Sinus rhythm at rate of 94. Venturi mask, FIO2 of 55%. Objective Last 24 Hour Vital Signs Date Time Temp Pulse Resp B/P (MAP) Pulse Ox O2 Delivery O2 Flow Rate FiO2 12/02/19 20:00 98.8 94 24 115/64 (81) 94 12/02/19 20:00 94 12/02/19 19:10 94 Venturi Mask 14.0 55 12/02/19 17:00 91 12/02/19 16:00 10.0 45 12/02/19 16:00 Venturi Mask 10.0 12/02/19 16:00 98.4 93 21 116/52 (73) 94 12/02/19 12:00 10.0 45 12/02/19 12:00 96 12/02/19 12:00 Venturi Mask 10.0 12/02/19 12:00 97.7 96 23 124/65 (84) 93 12/02/19 09:00 10.0 45 12/02/19 08:00 Venturi Mask 10.0 12/02/19 08:00 97.5 90 24 112/43 (66) 92 12/02/19 07:40 90 12/02/19 07:00 93 Venturi Mask 10.0 45 12/02/19 04:00 Venturi Mask 8.0 12/02/19 04:00 8.0 40 12/02/19 04:00 97.7 89 24 101/57 (72) 97 12/02/19 03:31 93 12/02/19 00:00 98.1 94 24 116/64 (81) 93 12/02/19 00:00 8.0 40 12/02/19 00:00 96 12/02/19 00:00 Venturi Mask 8.0 Intake and Output 12/01/19 12/02/19 19:00 07:00 Intake Total 300 ml 400 ml Output Total 1050 ml 850 ml Balance -750 ml -450 ml Intake Oral 300 ml 400 ml Output Urine Total 1050 ml 850 ml Hemodialysis UF 0 ml CXR: reviewed 2D Echo: LVEF 65%, RVSP 58 mmHg, Grade I LVDD Laboratory Tests Test 12/02/19 03:22 12/02/19 11:49 12/02/19 12:34 12/02/19 17:08 White Blood Count 33.0 K/UL (4.8-10.8) *H 29.6 K/UL (4.8-10.8) *H Red Blood Count 3.02 M/UL (4.20-5.40) L 3.12 M/UL (4.20-5.40) L Hemoglobin 8.0 G/DL (12.0-16.0) L 8.5 G/DL (12.0-16.0) L Hematocrit 25.4 % (37.0-47.0) L 26.5 % (37.0-47.0) L Mean Corpuscular Volume 84 FL (80-99) 85 FL (80-99) Mean Corpuscular Hemoglobin 26.6 PG (27.0-31.0) L 27.4 PG (27.0-31.0) Mean Corpuscular Hemoglobin Concent 31.6 G/DL (32.0-36.0) L 32.2 G/DL (32.0-36.0) Red Cell Distribution Width 22.4 % (11.6-14.8) H 23.3 % (11.6-14.8) H Platelet Count 62 K/UL (150-450) L 68 K/UL (150-450) L Mean Platelet Volume 7.7 FL (6.5-10.1) 8.0 FL (6.5-10.1) Neutrophils (%) (Auto) % (45.0-75.0) % (45.0-75.0) Lymphocytes (%) (Auto) % (20.0-45.0) % (20.0-45.0) Monocytes (%) (Auto) % (1.0-10.0) % (1.0-10.0) Eosinophils (%) (Auto) % (0.0-3.0) % (0.0-3.0) Basophils (%) (Auto) % (0.0-2.0) % (0.0-2.0) Differential Total Cells Counted 100 100 Neutrophils % (Manual) 93 % (45-75) H 94 % (45-75) H Lymphocytes % (Manual) 4 % (20-45) L 3 % (20-45) L Monocytes % (Manual) 3 % (1-10) 3 % (1-10) Eosinophils % (Manual) 0 % (0-3) 0 % (0-3) Basophils % (Manual) 0 % (0-2) 0 % (0-2) Band Neutrophils 0 % (0-8) 0 % (0-8) Platelet Estimate Decreased L Adequate Platelet Morphology Normal Normal Hypochromasia 2+ 2+ Anisocytosis 3+ 3+ Sodium Level 141 MMOL/L (136-145) Potassium Level 4.4 MMOL/L (3.5-5.1) Chloride Level 101 MMOL/L (98-107) Carbon Dioxide Level 25 MMOL/L (21-32) Anion Gap 16 mmol/L (5-15) H Blood Urea Nitrogen 62 mg/dL (7-18) H Creatinine 6.7 MG/DL (0.55-1.30) H Estimat Glomerular Filtration Rate 6.1 mL/min (>60) Glucose Level 65 MG/DL (74-106) L Uric Acid 7.8 MG/DL (2.6-7.2) H Calcium Level 7.5 MG/DL (8.5-10.1) L Phosphorus Level 7.3 MG/DL (2.5-4.9) H Magnesium Level 2.3 MG/DL (1.8-2.4) Total Bilirubin 0.5 MG/DL (0.2-1.0) Aspartate Amino Transf (AST/SGOT) 32 U/L (15-37) Alanine Aminotransferase (ALT/SGPT) 18 U/L (12-78) Alkaline Phosphatase 106 U/L (46-116) C-Reactive Protein, Quantitative 29.6 mg/dL (0.00-0.90) H Pro-B-Type Natriuretic Peptide 2907 pg/mL (0-125) H Total Protein 5.0 G/DL (6.4-8.2) L Albumin 1.2 G/DL (3.4-5.0) L Globulin 3.8 g/dL Albumin/Globulin Ratio 0.3 (1.0-2.7) L Random Vancomycin Level 14.8 ug/mL POC Whole Blood Glucose 167 MG/DL (74-106) H 239 MG/DL (74-106) H Microbiology Date/Time Source Procedure Growth Status 11/30/19 16:45 Blood Blood Culture - Preliminary NO GROWTH AFTER 24 HOURS Resulted 11/30/19 16:30 Blood Blood Culture - Preliminary NO GROWTH AFTER 24 HOURS Resulted Objective HEENT: Atraumatic, normocephalic. ENT, pupils are equal, round, and reactive to light and accommodation. Positive pallor. NECK: Cannot assess JVP due to obesity and short neck and current use of BiPAP mask. No carotid bruit. Carotid upstrokes 2+ bilaterally. CARDIOVASCULAR: Normal S1, S2. Regular rate and rhythm. No murmurs, gallops, or rubs. PMI is at fourth intercostal space in the midclavicular line. LUNGS: Bilateral crackles, mostly in the bases. ABDOMEN: Soft, nondistended. No hepatosplenomegaly. Positive bowel sounds. EXTREMITIES: No evidence of edema, clubbing, or cyanosis. Adryan Lopez MD Dec 02, 2019 23:05
[2019-12-03] VITALS (12 sets, daily range): BP systolic 106–133; BP diastolic 59–73
[2019-12-03] MEDS: NovoLOG Insulin Flexpen SUBQ SCH ×4 (05:45→20:55)
[2019-12-03 05:59] LABS: HEMATOCRIT 25.9 % (37.0-47.0); HEMOGLOBIN 8.3 G/DL (12.0-16.0); MEAN CORPUSCULAR VOLUME 85 FL (80-99); PLATELET COUNT 69 K/UL (150-450); RED BLOOD COUNT 3.03 M/UL (4.20-5.40); RED CELL DISTRIBUTION WIDTH 23.5 % (11.6-14.8)
[2019-12-03 06:13] LABS: INR 1.1 (0.9-1.1)
[2019-12-03 06:14] LABS: WHITE BLOOD COUNT 28.4 K/UL (4.8-10.8)
[2019-12-03 06:34] LABS: AMMONIA 41 umol/L (11-32)
[2019-12-03 06:40] LABS: ALANINE AMINOTRANSFERASE 23 U/L (12-78); ALBUMIN 1.3 G/DL (3.4-5.0); ALBUMIN/GLOBULIN RATIO 0.3 (1.0-2.7); ALKALINE PHOSPHATASE 126 U/L (46-116); ANION GAP 12 mmol/L (5-15); ASPARTATE AMINO TRANSFERASE 31 U/L (15-37); BILIRUBIN,TOTAL 0.5 MG/DL (0.2-1.0); BLOOD UREA NITROGEN 60 mg/dL (7-18); CALCIUM 7.3 MG/DL (8.5-10.1); CARBON DIOXIDE 29 MMOL/L (21-32); CHLORIDE 103 MMOL/L (98-107); CREATININE 6.1 MG/DL (0.55-1.30); PHOSPHORUS 6.2 MG/DL (2.5-4.9); POTASSIUM 4.2 MMOL/L (3.5-5.1); SODIUM 143 MMOL/L (136-145)
--- NOTE | 2019-12-03 07:55 | General Progress Note ---
Assessment/Plan Assessment/Plan: 1. Acute renal failure. 2. Leukocytosis. 3. History of alcohol abuse. 4. Profound microcytic anemia. 5. Prior history of possible psychiatric disorder. 6. Elevated lipase. 7. Mild transaminitis. 8. Pelvic lymphadenopathy. 9. obesity 10. DVT s/p IVC filter placement 11. PNA 12. vaginal bleed fu labs on oral diet stable H&H vag bleed>> improving speech eval appreciated HD per nephrology abx Subjective ROS Limited/Unobtainable: No Allergies: Coded Allergies: No Known Allergies (Unverified , 11/24/19) Subjective more alert Objective Last 24 Hour Vital Signs Date Time Temp Pulse Resp B/P (MAP) Pulse Ox O2 Delivery O2 Flow Rate FiO2 12/03/19 04:00 14.0 55 12/03/19 04:00 Venturi Mask 8.0 12/03/19 04:00 98.2 104 36 117/60 (79) 97 12/03/19 04:00 104 12/03/19 00:00 100 12/03/19 00:00 Venturi Mask 8.0 12/03/19 00:00 98.6 100 24 111/61 (78) 92 12/02/19 20:00 98.8 94 24 115/64 (81) 94 12/02/19 20:00 Venturi Mask 8.0 12/02/19 20:00 94 12/02/19 20:00 10.0 45 12/02/19 19:10 94 Venturi Mask 14.0 55 12/02/19 17:00 91 12/02/19 16:00 10.0 45 12/02/19 16:00 Venturi Mask 10.0 12/02/19 16:00 98.4 93 21 116/52 (73) 94 12/02/19 12:00 10.0 45 12/02/19 12:00 96 12/02/19 12:00 Venturi Mask 10.0 12/02/19 12:00 97.7 96 23 124/65 (84) 93 12/02/19 09:00 10.0 45 12/02/19 08:00 Venturi Mask 10.0 12/02/19 08:00 97.5 90 24 112/43 (66) 92 Intake and Output 12/02/19 12/03/19 19:00 07:00 Intake Total 300 ml 400 ml Output Total 1400 ml 1000 ml Balance -1100 ml -600 ml Intake Oral 300 ml 400 ml Output Urine Total 1400 ml 1000 ml # Bowel Movements 1 Laboratory Tests 12/02/19 11:49: POC Whole Blood Glucose 167H 12/02/19 12:34: White Blood Count 29.6*H, Red Blood Count 3.12L, Hemoglobin 8.5L, Hematocrit 26.5L, Mean Corpuscular Volume 85, Mean Corpuscular Hemoglobin 27.4, Mean Corpuscular Hemoglobin Concent 32.2, Red Cell Distribution Width 23.3H, Platelet Count 68L, Mean Platelet Volume 8.0, Neutrophils (%) (Auto) , Lymphocytes (%) (Auto) , Monocytes (%) (Auto) , Eosinophils (%) (Auto) , Basophils (%) (Auto) , Differential Total Cells Counted 100, Neutrophils % ( Manual) 94H, Lymphocytes % (Manual) 3L, Monocytes % (Manual) 3, Eosinophils % ( Manual) 0, Basophils % (Manual) 0, Band Neutrophils 0, Platelet Estimate Adequate, Platelet Morphology Normal, Hypochromasia 2+, Anisocytosis 3+ 12/02/19 17:08: POC Whole Blood Glucose 239H 12/03/19 03:39: White Blood Count 28.4*H, Red Blood Count 3.03L, Hemoglobin 8.3L, Hematocrit 25.9L, Mean Corpuscular Volume 85, Mean Corpuscular Hemoglobin 27.5, Mean Corpuscular Hemoglobin Concent 32.2, Red Cell Distribution Width 23.5H, Platelet Count 69L, Mean Platelet Volume 7.4, Neutrophils (%) (Auto) , Lymphocytes (%) (Auto) , Monocytes (%) (Auto) , Eosinophils (%) (Auto) , Basophils (%) (Auto) , Neutrophils % (Manual) [Pending], Lymphocytes % (Manual) [Pending], Platelet Estimate [Pending], Platelet Morphology [Pending], Prothrombin Time 12.0H, Prothromb Time International Ratio 1.1, Activated Partial Thromboplast Time 32, Sodium Level 143, Potassium Level 4.2, Chloride Level 103, Carbon Dioxide Level 29, Anion Gap 12, Blood Urea Nitrogen 60H, Creatinine 6.1H, Estimat Glomerular Filtration Rate 6.8, Glucose Level 142H, Calcium Level 7.3L, Phosphorus Level 6.2H, Magnesium Level 2.3, Total Bilirubin 0.5, Aspartate Amino Transf (AST/SGOT) 31, Alanine Aminotransferase (ALT/SGPT) 23, Alkaline Phosphatase 126H, Ammonia 41H, Troponin I [Pending], C-Reactive Protein, Quantitative 30.1H, Pro-B-Type Natriuretic Peptide 5323H, Total Protein 5.4L, Albumin 1.3L, Globulin 4.1, Albumin/Globulin Ratio 0.3L Height (Feet): 5 Height (Inches): 4.00 Weight (Pounds): 239 General Appearance: alert EENT: normal ENT inspection Neck: supple Cardiovascular: normal rate Respiratory/Chest: decreased breath sounds Abdomen: hypoactive bowel sounds Extremities: non-tender Ministerio Davis MD Dec 03, 2019 07:55
[2019-12-03] MEDS: Renvela 800mg Pkt ORAL SCH ×3 (09:05→18:31)
[2019-12-03] MEDS: Thiamine 100mg tab ORAL SCH (09:05)
[2019-12-03] MEDS: Docusate 100mg cap ORAL SCH ×3 (09:05→18:31)
--- NOTE | 2019-12-03 09:44 | Pulmonology Progress Note ---
Carlita Brewster VACUUM REPAIRER 12/03/19 0944: Subjective ROS Limited/Unobtainable: No Allergies: Coded Allergies: No Known Allergies (Unverified , 11/24/19) Subjective on 55% VM no fevers, persistent leucocytosis slowly trending down still some SOB, no CP + gen fatigue, weakness CXR 11/29 w/out much changes CXR for this an pending 11/30 s/p removal of clotted R femoral HD catheter and placement of the new temporary one via R femoral vein by gen surgeon on the bedside Objective Last 24 Hour Vital Signs Date Time Temp Pulse Resp B/P (MAP) Pulse Ox O2 Delivery O2 Flow Rate FiO2 12/03/19 08:00 98.5 103 30 106/61 (76) 93 12/03/19 08:00 101 12/03/19 08:00 14.0 55 12/03/19 07:00 94 Venturi Mask 14.0 55 12/03/19 04:00 14.0 55 12/03/19 04:00 Venturi Mask 8.0 12/03/19 04:00 98.2 104 36 117/60 (79) 97 12/03/19 04:00 104 12/03/19 00:00 100 12/03/19 00:00 Venturi Mask 8.0 12/03/19 00:00 98.6 100 24 111/61 (78) 92 12/02/19 20:00 98.8 94 24 115/64 (81) 94 12/02/19 20:00 Venturi Mask 8.0 12/02/19 20:00 94 12/02/19 20:00 10.0 45 12/02/19 19:10 94 Venturi Mask 14.0 55 12/02/19 17:00 91 12/02/19 16:00 10.0 45 12/02/19 16:00 Venturi Mask 10.0 12/02/19 16:00 98.4 93 21 116/52 (73) 94 12/02/19 12:00 10.0 45 12/02/19 12:00 96 12/02/19 12:00 Venturi Mask 10.0 12/02/19 12:00 97.7 96 23 124/65 (84) 93 Intake and Output 12/02/19 12/03/19 19:00 07:00 Intake Total 300 ml 400 ml Output Total 1400 ml 1000 ml Balance -1100 ml -600 ml Intake Oral 300 ml 400 ml Output Urine Total 1400 ml 1000 ml # Bowel Movements 1 Objective General Appearance: Bulgarian speaking, in NAD, calm, obese female Lines, tubes and drains: peripheral, also CL via R femoral ->HD catheter HEENT: normocephalic, atraumatic, anicteric, mucous membranes moist, VM 55% Neck: non-tender, supple Respiratory/Chest: no accessory muscle use, few crackles at bases Cardiovascular/Chest: normal peripheral pulses, normal rate, regular rhythm Abdomen: normal bowel sounds, soft . mild distention and obese, non tender Extremities: normal range of motion, non-tender, no calf tenderness, +1 edema BLE Neurologic: no motor/sensory deficits, alert, responsive but somewhat confused Musculoskeletal: normal muscle bulk Microbiology Date/Time Source Procedure Growth Status 12/01/19 12:05 Blood Blood Culture - Preliminary NO GROWTH AFTER 24 HOURS Resulted 12/01/19 11:55 Blood Blood Culture - Preliminary NO GROWTH AFTER 24 HOURS Resulted 11/30/19 16:45 Blood Blood Culture - Preliminary NO GROWTH AFTER 48 HOURS Resulted 11/30/19 16:30 Blood Blood Culture - Preliminary NO GROWTH AFTER 48 HOURS Resulted Laboratory Tests 12/02/19 11:49: POC Whole Blood Glucose 167H 12/02/19 12:34: White Blood Count 29.6*H, Red Blood Count 3.12L, Hemoglobin 8.5L, Hematocrit 26.5L, Mean Corpuscular Volume 85, Mean Corpuscular Hemoglobin 27.4, Mean Corpuscular Hemoglobin Concent 32.2, Red Cell Distribution Width 23.3H, Platelet Count 68L, Mean Platelet Volume 8.0, Neutrophils (%) (Auto) , Lymphocytes (%) (Auto) , Monocytes (%) (Auto) , Eosinophils (%) (Auto) , Basophils (%) (Auto) , Differential Total Cells Counted 100, Neutrophils % ( Manual) 94H, Lymphocytes % (Manual) 3L, Monocytes % (Manual) 3, Eosinophils % ( Manual) 0, Basophils % (Manual) 0, Band Neutrophils 0, Platelet Estimate Adequate, Platelet Morphology Normal, Hypochromasia 2+, Anisocytosis 3+ 12/02/19 17:08: POC Whole Blood Glucose 239H 12/03/19 03:39: White Blood Count 28.4*H, Red Blood Count 3.03L, Hemoglobin 8.3L, Hematocrit 25.9L, Mean Corpuscular Volume 85, Mean Corpuscular Hemoglobin 27.5, Mean Corpuscular Hemoglobin Concent 32.2, Red Cell Distribution Width 23.5H, Platelet Count 69L, Mean Platelet Volume 7.4, Neutrophils (%) (Auto) , Lymphocytes (%) (Auto) , Monocytes (%) (Auto) , Eosinophils (%) (Auto) , Basophils (%) (Auto) , Differential Total Cells Counted 100, Neutrophils % ( Manual) 86H, Lymphocytes % (Manual) 5L, Monocytes % (Manual) 7, Eosinophils % ( Manual) 2, Basophils % (Manual) 0, Band Neutrophils 0, Platelet Estimate DecreasedL, Platelet Morphology Normal, Hypochromasia 2+, Anisocytosis 3+, Spherocytes 2+, Prothrombin Time 12.0H, Prothromb Time International Ratio 1.1, Activated Partial Thromboplast Time 32, Sodium Level 143, Potassium Level 4.2, Chloride Level 103, Carbon Dioxide Level 29, Anion Gap 12, Blood Urea Nitrogen 60H, Creatinine 6.1H, Estimat Glomerular Filtration Rate 6.8, Glucose Level 142H , Calcium Level 7.3L, Phosphorus Level 6.2H, Magnesium Level 2.3, Total Bilirubin 0.5, Aspartate Amino Transf (AST/SGOT) 31, Alanine Aminotransferase ( ALT/SGPT) 23, Alkaline Phosphatase 126H, Ammonia 41H, Troponin I 0.000, C- Reactive Protein, Quantitative 30.1H, Pro-B-Type Natriuretic Peptide 5323H, Total Protein 5.4L, Albumin 1.3L, Globulin 4.1, Albumin/Globulin Ratio 0.3L Current Medications Medications (Trade) Dose Ordered Sig/Brina Route PRN Reason Start Time Stop Time Status Last Admin Dose Admin Acetaminophen (Tylenol) 650 mg Q8H PRN NG Mild Pain (Pain Scale 1-3) 11/27/19 08:30 12/27/19 08:29 Acetaminophen/ Hydrocodone Bitart (Ralph 10/325) 1 tab Q8H PRN ORAL Severe Pain (Pain Scale 7-10) 11/27/19 08:30 12/04/19 08:29 11/29/19 21:46 Acetaminophen/ Hydrocodone Bitart (Ralph 5/325) 1 tab Q8H PRN ORAL Moderate Pain (Pain Scale 4-6) 11/27/19 08:30 12/04/19 08:29 11/30/19 22:43 Chlorhexidine Gluconate (Shonna-Hex 2%) 1 applic DAILY@2000 TOPIC 11/26/19 20:00 02/24/20 19:59 12/02/19 20:47 Dextrose (Dextrose 50%) 25 ml Q30M PRN IV Hypoglycemia 12/02/19 23:00 03/01/20 22:59 Dextrose (Dextrose 50%) 50 ml Q30M PRN IV Hypoglycemia 12/02/19 23:00 03/01/20 22:59 Docusate Sodium (Colace) 100 mg THREE TIMES A DAY ORAL 11/28/19 18:00 12/28/19 17:59 12/03/19 09:05 Epoetin Zay (Epoetin Zay(ESRD on dialysis)) 10,000 unit TUE-TUE-TUE SUBQ 11/26/19 21:00 02/24/20 20:59 11/30/19 21:21 Insulin Aspart (NovoLOG) BEFORE MEALS AND HS SUBQ 12/03/19 06:30 03/02/20 06:29 12/03/19 05:45 Morphine Sulfate (Morphine Sulfate) 1 mg Q8H PRN IVP Breakthrough Pain 12/01/19 18:30 12/08/19 18:29 Pantoprazole (Protonix) 40 mg EVERY 12 HOURS ORAL 11/28/19 21:00 12/28/19 20:59 12/03/19 09:05 Polyethylene Glycol (Miralax) 17 gm BEDTIME ORAL 11/27/19 21:00 12/27/19 20:59 12/02/19 20:47 Sevelamer Carbonate (Renvela) 2,400 mg THREE TIMES A DAY ORAL 12/03/19 09:00 02/26/20 17:59 12/03/19 09:05 Thiamine HCl (Vitamin B1) 100 mg DAILY ORAL 11/29/19 09:00 12/29/19 08:59 12/03/19 09:05 Vancomycin HCl (Vanco pharmacy to dose) 1 ea DAILY PRN MISC Per rx protocol 11/30/19 11:30 12/30/19 11:29 Assessment/Plan Assessment/Plan ASSESSMENT Sepsis Acute hypoxemic respiratory failure - Acute toxic metabolic encephalopathy ( multifactorial due to ARF, sepsis)- improving Acute renal failure , requiring start of HD MRSA bilateral PNA Acute DVT LLE common femoral to proximal superficial veins , r/o RE-NGT Possible UTI Hyperkalemia Severe pulmonary HTN Anemia Severe postmenopausal bleeding , with pelvic LAD; ? malignancy Elevated lipase, probably pancreatitis Pelvic LAD Anasarca History of EtOH abuse Possible psychiatric disorder PLAN OF CARE LEOBARDO supplemental O2 titrate to keep sat above 92%, resp status improved after HD, now back on O2 via VM CXR 11/29 w/pit much changes : Bilateral alveolar airspace disease unchanged right greater than left. CXR for this am pending pulm toilet SCX + MRSA hx of recent resp illness abx per ID recs-> Zosyn completed ; now on Vanco persistent leukocytosis with slow trend down , no fevers BCX 11/30 NGTD ID clearance for insertion of permanent HD catheter pending CTA chest with evidence of PNA initial SOB and resp distress were most likely due to fluid overload 2 to acute renal failure, and now acute DVT , r/o PE -> NGT Venous Duplex BLE + acute DVT LEFT COMMON FEMORAL TO PROXIMAL SUPERFICIAL FEMORAL VEINs. unable to start a/coagulation given Hgb 7.3 stat VQ scan 11/25 with intermediate probability for pulmonary embolism. s/p IVC filter 11/25 CTA chest -> no PE + BL infiltrates and RLL consolidation +mediastinal adenopathy concern for malignancy and elevated WBC ? tumor burden REQUIREMENTS MANAGER signed out for now fup with further onco recs mediastinal and pelvic lymphadenopathy ?flow cytometry LP aspir precautions VSS pending s/p PRBC transfusion monitor HH with goal to keep Hg above 7, on EPO and IV iron anemia w/up noted stool OB NGT x 3 monitor PLT count rapid COVID 19 11/23 x 2 - NGT rapid COVID 19 11/24 NGT BCX 11/23 NGTD ? UTI UCX 11/25 NGT SCX 11/25 + MRSA UCX 11/28 NGT TB spot pending further management of ARF and hyper K as per raking machine operator - bicarb stabilized s/p HD via R fem temp HD catheter, placed by surgeon creat trending down monitor volumes permanent HD catheter placement pending after ID clearance ECHO with pEF 65% and RVSP of 58 c/w severe pulm HTN cardiac monitoring-SR lipase trended down to normal hep panel NGT HIV nonreactive abd US, given enlarged lymph nodes-> fatty liver with a small septated cyst. Gallstones. The spleen, left kidney, CBD, pancreas ,aorta and cava not well defined. lipase and AST trending down CT head -no acute IC patholgoy pelvic US noted episode of large postmenopausal bleeding 11/28 REQUIREMENTS MANAGER eval appreciated not a candidate for surgical interventions as this time needs hysteroscopy, D&C and endometrium ablation , will need medical stabilization and clearance prior to surgery REQUIREMENTS MANAGER was unable to start Provera given acute DVT at this time medically optimize, monitor closely, check counts thank you for consult Reece Peters MD 12/03/192: Subjective Allergies: Coded Allergies: No Known Allergies (Unverified , 11/24/19) Assessment/Plan Assessment/Plan Patient seen and examined with VACUUM REPAIRER. Agree with above A&P as it reflects our joint deliberations. Carlita Brewster NP Dec 03, 2019 09:44 Reece Peters MD Dec 03, 2019 21:02
--- NOTE | 2019-12-03 10:25 | Nephrology Progress Note ---
Assessment/Plan Problem List: (1) ARF (acute renal failure) (2) Sepsis (3) CAP (community acquired pneumonia) (4) Hyperkalemia (5) Encephalopathy acute (6) Anemia (7) Alcohol abuse Assessment: Long history as per daughter (8) Serum lipase elevation (9) Obesity (BMI 30-39.9) (10) Fatty liver Assessment Acute renal failure and hyperkalemia Most likely underlying chronic kidney disease Sepsis, pneumonia Toxic metabolic encephalopathy Severe anemia Morbid obesity Acute hypoxemic respiratory failure Elevated lipase possible pancreatitis Enlarged pelvic lymph nodes Anasarca History of EtOH abuse Possible psychiatric disorder Plan December 02: Due for dialysis today. Hemoglobin somewhat stable. Serum ammonia is somewhat elevated will start lactulose. Will attempt placement of permacath when cleared by ID. December 01: Last dialyzed yesterday. Patient confused. Labs reviewed. Hemoglobin stable. No more vaginal bleeding reported. Leukocytosis persists continue per consultants November 30: Patient received dialysis only 40 minutes yesterday as the dialysis catheter was clotted. Dialysis catheter was changed by general surgery today and she is going to receive dialysis again today. Labs reviewed. Medication reviewed. Patient's daughter Lynne in the room I had a long conversation with her. Continue per consultants. [employer]ACLE APPLICATION CONSULTANT Note: 69yo with severe acute postmenopausal bleeding in the setting of morbid obesity , ESRD, alcohol abuse, sepsis, and recent IVC filter placement for LE DVT. - DDx of bleeding includes underlying coagulopathy, unopposed estrogen, malignancy - US was not able to visualize uterine lining clearly - Transfuse blood products as indicated - - Patient is an extremely poor surgical candidate at this time given her SOB, active DVT, sepsis, ESRD, and alcoholic encephalopathy - Surgical management would be as a last resort only, and patient would need medical stabilization and clearance for hysteroscopy, D&C, and endometrial ablation - Other options would include possible uterine artery embolization, which would likely require urgent transfer to a higher level of care - I do [place] [facility] [place] Would consider Progesterone treatment with Provera, however patient has active DVT with IVC filter in place and per guidelines Provera is contraindicated with active DVT - Plan of care discussed with Dr. Schroeder - Please contact my office again with any additional concerns at [phone] November 29: Dialysis yesterday was not done due to massive vaginal bleed. Patient was transfused 2 units of packed RBCs. Patient due for placement of tunneled permacath. Will attempt dialysis today. Continue to transfuse as needed. Vaginal bleeding etiology to be worked up by specialist. November 28: Due for dialysis today. Leukocytosis persist. Plan for placement of a permacath when stable from ID standpoint of view. November 27: Plan for dialysis tomorrow. White BC is 20,000. Thiamine and Protonix was changed to p.o. Renvela added as phosphorus binder November 26: Due for dialysis today. Leukocytosis persists. Continue per consultants. November 25. Patient was dialyzed 2 days in a row. Will order dialysis tomorrow. Leukocytosis persists. Patient on antibiotics. November 24: Patient was dialyzed yesterday. Serum potassium now within normal range. ABG improved. Discussed with RN. IV changed. Dialysis ordered again today. IV thiamine started. Ativan for agitation ordered. Recheck labs tomorrow. Continue per consultants. Amphojel as phosphorus binder also started. Previously: Anemia work-up ordered IV Venofer, subcu Epogen ordered Continue to monitor renal parameters Per orders Subjective ROS Limited/Unobtainable: No Constitutional: Reports: malaise Objective Objective Last 24 Hour Vital Signs Date Time Temp Pulse Resp B/P (MAP) Pulse Ox O2 Delivery O2 Flow Rate FiO2 12/03/19 08:00 98.5 103 30 106/61 (76) 93 12/03/19 08:00 101 12/03/19 08:00 14.0 55 12/03/19 07:00 94 Venturi Mask 14.0 55 12/03/19 04:00 14.0 55 12/03/19 04:00 Venturi Mask 8.0 12/03/19 04:00 98.2 104 36 117/60 (79) 97 12/03/19 04:00 104 12/03/19 00:00 100 12/03/19 00:00 Venturi Mask 8.0 12/03/19 00:00 98.6 100 24 111/61 (78) 92 12/02/19 20:00 98.8 94 24 115/64 (81) 94 12/02/19 20:00 Venturi Mask 8.0 12/02/19 20:00 94 12/02/19 20:00 10.0 45 12/02/19 19:10 94 Venturi Mask 14.0 55 12/02/19 17:00 91 12/02/19 16:00 10.0 45 12/02/19 16:00 Venturi Mask 10.0 12/02/19 16:00 98.4 93 21 116/52 (73) 94 12/02/19 12:00 10.0 45 12/02/19 12:00 96 12/02/19 12:00 Venturi Mask 10.0 12/02/19 12:00 97.7 96 23 124/65 (84) 93 Intake and Output 12/02/19 12/03/19 19:00 07:00 Intake Total 300 ml 400 ml Output Total 1400 ml 1000 ml Balance -1100 ml -600 ml Intake Oral 300 ml 400 ml Output Urine Total 1400 ml 1000 ml # Bowel Movements 1 Laboratory Tests 12/02/19 11:49: POC Whole Blood Glucose 167H 12/02/19 12:34: White Blood Count 29.6*H, Red Blood Count 3.12L, Hemoglobin 8.5L, Hematocrit 26.5L, Mean Corpuscular Volume 85, Mean Corpuscular Hemoglobin 27.4, Mean Corpuscular Hemoglobin Concent 32.2, Red Cell Distribution Width 23.3H, Platelet Count 68L, Mean Platelet Volume 8.0, Neutrophils (%) (Auto) , Lymphocytes (%) (Auto) , Monocytes (%) (Auto) , Eosinophils (%) (Auto) , Basophils (%) (Auto) , Differential Total Cells Counted 100, Neutrophils % ( Manual) 94H, Lymphocytes % (Manual) 3L, Monocytes % (Manual) 3, Eosinophils % ( Manual) 0, Basophils % (Manual) 0, Band Neutrophils 0, Platelet Estimate Adequate, Platelet Morphology Normal, Hypochromasia 2+, Anisocytosis 3+ 12/02/19 17:08: POC Whole Blood Glucose 239H 12/03/19 03:39: White Blood Count 28.4*H, Red Blood Count 3.03L, Hemoglobin 8.3L, Hematocrit 25.9L, Mean Corpuscular Volume 85, Mean Corpuscular Hemoglobin 27.5, Mean Corpuscular Hemoglobin Concent 32.2, Red Cell Distribution Width 23.5H, Platelet Count 69L, Mean Platelet Volume 7.4, Neutrophils (%) (Auto) , Lymphocytes (%) (Auto) , Monocytes (%) (Auto) , Eosinophils (%) (Auto) , Basophils (%) (Auto) , Differential Total Cells Counted 100, Neutrophils % ( Manual) 86H, Lymphocytes % (Manual) 5L, Monocytes % (Manual) 7, Eosinophils % ( Manual) 2, Basophils % (Manual) 0, Band Neutrophils 0, Platelet Estimate DecreasedL, Platelet Morphology Normal, Hypochromasia 2+, Anisocytosis 3+, Spherocytes 2+, Prothrombin Time 12.0H, Prothromb Time International Ratio 1.1, Activated Partial Thromboplast Time 32, Sodium Level 143, Potassium Level 4.2, Chloride Level 103, Carbon Dioxide Level 29, Anion Gap 12, Blood Urea Nitrogen 60H, Creatinine 6.1H, Estimat Glomerular Filtration Rate 6.8, Glucose Level 142H , Calcium Level 7.3L, Phosphorus Level 6.2H, Magnesium Level 2.3, Total Bilirubin 0.5, Aspartate Amino Transf (AST/SGOT) 31, Alanine Aminotransferase ( ALT/SGPT) 23, Alkaline Phosphatase 126H, Ammonia 41H, Troponin I 0.000, C- Reactive Protein, Quantitative 30.1H, Pro-B-Type Natriuretic Peptide 5323H, Total Protein 5.4L, Albumin 1.3L, Globulin 4.1, Albumin/Globulin Ratio 0.3L Height (Feet): 5 Height (Inches): 4.00 Weight (Pounds): 239 General Appearance: no apparent distress, lethargic Cardiovascular: tachycardia Respiratory/Chest: decreased breath sounds Abdomen: distended Objective No other change Jean-Pierre Garcia MD Dec 03, 2019 10:25
[2019-12-03] MEDS ORDERED: Heparin1,000 units/500ml Premix(Conc:2 units/ml) INJ PRN (12:00)
[2019-12-03] MEDS ORDERED: Heparin Sod 1000 units/ml 10ml INJ PRN (12:00)
[2019-12-03] MEDS ORDERED: Lidocaine 2% 20mg/ml/Epi 0.005mg/ml 20ml vial INJ PRN (12:00)
--- NOTE | 2019-12-03 12:14 | Surgery Progress Note ---
Surgery Progress Note Subjective Procedure Performed right femoral temporary Hemodialysis catheter insertion Additional Comments leukocytosis comfortable no complaints no n/v Objective Last 24 Hour Vital Signs Date Time Temp Pulse Resp B/P (MAP) Pulse Ox O2 Delivery O2 Flow Rate FiO2 12/03/19 11:51 Venturi Mask 14.0 12/03/19 08:00 98.5 103 30 106/61 (76) 93 12/03/19 08:00 101 12/03/19 08:00 Venturi Mask 14.0 12/03/19 08:00 14.0 55 12/03/19 07:00 94 Venturi Mask 14.0 55 12/03/19 04:00 14.0 55 12/03/19 04:00 Venturi Mask 8.0 12/03/19 04:00 98.2 104 36 117/60 (79) 97 12/03/19 04:00 104 12/03/19 00:00 100 12/03/19 00:00 Venturi Mask 8.0 12/03/19 00:00 98.6 100 24 111/61 (78) 92 12/02/19 20:00 98.8 94 24 115/64 (81) 94 12/02/19 20:00 Venturi Mask 8.0 12/02/19 20:00 94 12/02/19 20:00 10.0 45 12/02/19 19:10 94 Venturi Mask 14.0 55 12/02/19 17:00 91 12/02/19 16:00 10.0 45 12/02/19 16:00 Venturi Mask 10.0 12/02/19 16:00 98.4 93 21 116/52 (73) 94 I&O Intake and Output 12/02/19 12/03/19 19:00 07:00 Intake Total 300 ml 400 ml Output Total 1400 ml 1000 ml Balance -1100 ml -600 ml Intake Oral 300 ml 400 ml Output Urine Total 1400 ml 1000 ml # Bowel Movements 1 Dressing: saturated Cardiovascular: RSR Respiratory: decreased breath sounds Abdomen: soft, non-tender, present bowel sounds Extremities: edema, no tenderness, no cyanosis Laboratory Tests Test 12/02/19 12:34 12/02/19 17:08 12/03/19 03:39 12/03/19 11:21 White Blood Count 29.6 K/UL (4.8-10.8) *H 28.4 K/UL (4.8-10.8) *H Red Blood Count 3.12 M/UL (4.20-5.40) L 3.03 M/UL (4.20-5.40) L Hemoglobin 8.5 G/DL (12.0-16.0) L 8.3 G/DL (12.0-16.0) L Hematocrit 26.5 % (37.0-47.0) L 25.9 % (37.0-47.0) L Mean Corpuscular Volume 85 FL (80-99) 85 FL (80-99) Mean Corpuscular Hemoglobin 27.4 PG (27.0-31.0) 27.5 PG (27.0-31.0) Mean Corpuscular Hemoglobin Concent 32.2 G/DL (32.0-36.0) 32.2 G/DL (32.0-36.0) Red Cell Distribution Width 23.3 % (11.6-14.8) H 23.5 % (11.6-14.8) H Platelet Count 68 K/UL (150-450) L 69 K/UL (150-450) L Mean Platelet Volume 8.0 FL (6.5-10.1) 7.4 FL (6.5-10.1) Neutrophils (%) (Auto) % (45.0-75.0) % (45.0-75.0) Lymphocytes (%) (Auto) % (20.0-45.0) % (20.0-45.0) Monocytes (%) (Auto) % (1.0-10.0) % (1.0-10.0) Eosinophils (%) (Auto) % (0.0-3.0) % (0.0-3.0) Basophils (%) (Auto) % (0.0-2.0) % (0.0-2.0) Differential Total Cells Counted 100 100 Neutrophils % (Manual) 94 % (45-75) H 86 % (45-75) H Lymphocytes % (Manual) 3 % (20-45) L 5 % (20-45) L Monocytes % (Manual) 3 % (1-10) 7 % (1-10) Eosinophils % (Manual) 0 % (0-3) 2 % (0-3) Basophils % (Manual) 0 % (0-2) 0 % (0-2) Band Neutrophils 0 % (0-8) 0 % (0-8) Platelet Estimate Adequate Decreased L Platelet Morphology Normal Normal Hypochromasia 2+ 2+ Anisocytosis 3+ 3+ POC Whole Blood Glucose 239 MG/DL (74-106) H 160 MG/DL (74-106) H Spherocytes 2+ Prothrombin Time 12.0 SEC (9.30-11.50) H Prothromb Time International Ratio 1.1 (0.9-1.1) Activated Partial Thromboplast Time 32 SEC (23-33) Sodium Level 143 MMOL/L (136-145) Potassium Level 4.2 MMOL/L (3.5-5.1) Chloride Level 103 MMOL/L (98-107) Carbon Dioxide Level 29 MMOL/L (21-32) Anion Gap 12 mmol/L (5-15) Blood Urea Nitrogen 60 mg/dL (7-18) H Creatinine 6.1 MG/DL (0.55-1.30) H Estimat Glomerular Filtration Rate 6.8 mL/min (>60) Glucose Level 142 MG/DL (74-106) H Calcium Level 7.3 MG/DL (8.5-10.1) L Phosphorus Level 6.2 MG/DL (2.5-4.9) H Magnesium Level 2.3 MG/DL (1.8-2.4) Total Bilirubin 0.5 MG/DL (0.2-1.0) Aspartate Amino Transf (AST/SGOT) 31 U/L (15-37) Alanine Aminotransferase (ALT/SGPT) 23 U/L (12-78) Alkaline Phosphatase 126 U/L (46-116) H Ammonia 41 umol/L (11-32) H Troponin I 0.000 ng/mL (0.000-0.056) C-Reactive Protein, Quantitative 30.1 mg/dL (0.00-0.90) H Pro-B-Type Natriuretic Peptide 5323 pg/mL (0-125) H Total Protein 5.4 G/DL (6.4-8.2) L Albumin 1.3 G/DL (3.4-5.0) L Globulin 4.1 g/dL Albumin/Globulin Ratio 0.3 (1.0-2.7) L Plan Problems: (1) Anemia (2) Encephalopathy acute (3) Acute respiratory failure with hypoxia (4) Hyperkalemia (5) Sepsis Assessment & Plan: Leukocytosis anemia hyperkalemia abnormal labs HD catheter placed received dialysis and slowly potassium improved. Plan for repeat dialysis ordered. IV antibiotics per infectious disease Patient is alert awake but confused. Slowly improving No hematoma or bleeding identified Site looks clean We will continue with HD on a sure if renal function will improve may need permacath CT reviewed edema noted lymph nodes noted likely reactive Thank you for let me participate patient's care with follow with recommendations s/p filter placement stable acute blood loss anemia vaginal bleeding coags heme input transfuse prbc trend h/h will monitor for bleeding thank you HD line change 11/30 ABDOMEN: Liver: Unremarkable. Gallbladder and bile ducts: Unremarkable. No calcified stones. No ductal dilation. Pancreas: Unremarkable. No ductal dilation. Spleen: Unremarkable. No splenomegaly. Adrenals: Unremarkable. No mass. Kidneys and ureters: Bilateral low-grade hydronephrosis. No radiopaque stones in the urinary tract identified except for nonobstructing 3 mm stone in the inferior pole left kidney. Stomach and bowel: Scattered colonic diverticuli. No obstruction. No mucosal thickening. PELVIS: Appendix: No findings to suggest acute appendicitis. Bladder: The urinary bladder is decompressed by an indwelling Kaminski catheter No stones. Reproductive: Unremarkable as visualized. ABDOMEN and PELVIS: Intraperitoneal space: Unremarkable. No free air. No significant fluid collection. Bones/joints: No acute fracture. No dislocation. Soft tissues: Anasarca. Vasculature: Unremarkable. No abdominal aortic aneurysm. Lymph nodes: Enlarged left superficial inguinal lymph node measuring 2 cm short axis There are bilateral enlarged external iliac lymph nodes, measuring 2.9 cm x 5.1 cm on the left and 2.7 x 2.0 cm on the right. Other findings: Beam hardening from patient's abdominal girth degrades detail. IMPRESSION: 1. Enlarged pelvic lymph nodes could reflect reactive changes from cellulitis in the setting of generalized bony wall edema, or other acute inflammatory changes but neoplasm such as lymphomas not excluded. Correlate clinically. Ultrasound of the pelvis could be considered to help distinguish patient's ovaries from presumed pelvic adenopathy. 2. Mild bilateral hydronephrosis, with a Kaminski catheter in the urinary bladder. Correlate with bladder catheter function. DAILY ESTIMATED NEEDS: Needs based on obesity, ARF + HD/ 67kg abw 22-25 kcals/kg [id number] total kcals 1.2-1.8 w/ HD g protein/kg 81-120 g total protein Fluids per MD mL/kg . total fluid mLs NUTRITION DIAGNOSIS: Altered nutrition related lab values R/T ARF, pre-diabetes as evidenced by elev BUN (157 -> 77 trend down), elev creat (142 -> 7.5), now on HD, elev phos (8.1), elev mag (2.5-> wnl). A1C of 6.0 w/ elev BGs (154 173 146-> now improved). CURRENT DIET:RENAL, soft easy chew w/ NTL PO DIET RECOMMENDATIONS: RENAL, CCHO LOW/ texture per MANUFACTURING TEST ENGINEER ADDITIONAL RECOMMENDATIONS: * Calibrated bedscale wt for accurate CBW- w/ added p200 mattress + pump * Phos binders w/ meals- now on Renvela TID * Monitor renal fxn and continuity of HD- creat (14.2 -> 7.5) * Monitor BGs, need for hypoglycemics * Monitor PO intake and tolerance closely * Nephrovite x 1 as supplement . (6) ARF (acute renal failure) (7) CAP (community acquired pneumonia) (8) Serum lipase elevation (9) Obesity (BMI 30-39.9) Angelo Naik Dec 03, 2019 12:14
[2019-12-03 12:44] LABS: HEMATOCRIT 26.2 % (37.0-47.0); HEMOGLOBIN 8.2 G/DL (12.0-16.0); MEAN CORPUSCULAR VOLUME 87 FL (80-99); PLATELET COUNT 58 K/UL (150-450); RED BLOOD COUNT 3.03 M/UL (4.20-5.40); RED CELL DISTRIBUTION WIDTH 24.8 % (11.6-14.8)
[2019-12-03 12:45] LABS: WHITE BLOOD COUNT 27.1 K/UL (4.8-10.8)
[2019-12-03] MEDS: Lactulose 20gm/30ml UDC ORAL SCH ×2 (13:00→18:31)
--- NOTE | 2019-12-03 13:48 | General Progress Note ---
Assessment/Plan Assessment/Plan: S, O: pt is awake , seems comfortable, seen and examined in step down unit. in mild sob. on Venturi mask PHYSICAL EXAMINATION:HEAD AND NECK: Atraumatic and normocephalic. CHEST: Diffuse bronchial breathing sounds.HEART: S1 and S2. Regular rate and rhythm. ABDOMEN: Soft. No organomegaly. Protuberant. No tenderness. MUSCULOSKELETAL: Right inguinal HD- access noted, No gross lateralized motor deficit. It is limited examination as the patient is not cooperative. b/l le edema and tenderness NEUROLOGIC: The patient is delirious. DIAGNOSTIC AND LABORATORY DATA: Imaging, Chest -CT dated November 26 Labs, dated December 02 reviewed ASSESSMENT: 1. Severe sepsis. 2. PNA- Bilateral 3. Hypoxemic respiratory failure. 3. Acute Anemia 5. Acute Menometrorrhagia 6. Hyperkalemia. 4. End-stage renal disease. 5. CHF, likely diagnosis. 6. Abnormal blood sugar. 7. Acute on chronic Microcytic anemia. 8. GI and DVT prophylaxis. 9. LE DVT- Bilateral PLAN OF CARE: contra indication for anticoagulation . D/W Hemonch regarding IVC notes form ID, Nephrology reviewed S/P IVC filter placement. Given the importance of diagnosis of PE in the risk stratification decision for nursing home ATC, will proceed with Chest CT-Angio No additional ATC at this time, pending stool occult test I called the daughter Piper and updated her about over medical cnd on November 27 around 2 PM D/w Dr Pedersen, Yard Specialist. Agree for current conservative mgt. Not medically stable for surgical or aggressive methods in controlling the Menometrorrhagia favorable response to PRBC-transfusion S/P insertion of the new temp- HD access in the groin, once clear by ID will proceed for Tunneled HD-access placement Subjective Allergies: Coded Allergies: No Known Allergies (Unverified , 11/24/19) Objective Last 24 Hour Vital Signs Date Time Temp Pulse Resp B/P (MAP) Pulse Ox O2 Delivery O2 Flow Rate FiO2 12/03/19 12:00 14.0 55 12/03/19 12:00 97.9 102 30 112/59 (76) 98 12/03/19 12:00 103 12/03/19 11:51 Venturi Mask 14.0 12/03/19 08:00 98.5 103 30 106/61 (76) 93 12/03/19 08:00 101 12/03/19 08:00 Venturi Mask 14.0 12/03/19 08:00 14.0 55 12/03/19 07:00 94 Venturi Mask 14.0 55 12/03/19 04:00 14.0 55 12/03/19 04:00 Venturi Mask 8.0 12/03/19 04:00 98.2 104 36 117/60 (79) 97 12/03/19 04:00 104 12/03/19 00:00 100 12/03/19 00:00 Venturi Mask 8.0 12/03/19 00:00 98.6 100 24 111/61 (78) 92 12/02/19 20:00 98.8 94 24 115/64 (81) 94 12/02/19 20:00 Venturi Mask 8.0 12/02/19 20:00 94 12/02/19 20:00 10.0 45 12/02/19 19:10 94 Venturi Mask 14.0 55 12/02/19 17:00 91 12/02/19 16:00 10.0 45 12/02/19 16:00 Venturi Mask 10.0 12/02/19 16:00 98.4 93 21 116/52 (73) 94 Intake and Output 12/02/19 12/03/19 19:00 07:00 Intake Total 300 ml 400 ml Output Total 1400 ml 1000 ml Balance -1100 ml -600 ml Intake Oral 300 ml 400 ml Output Urine Total 1400 ml 1000 ml # Bowel Movements 1 Laboratory Tests 12/02/19 17:08: POC Whole Blood Glucose 239H 12/03/19 03:39: White Blood Count 28.4*H, Red Blood Count 3.03L, Hemoglobin 8.3L, Hematocrit 25.9L, Mean Corpuscular Volume 85, Mean Corpuscular Hemoglobin 27.5, Mean Corpuscular Hemoglobin Concent 32.2, Red Cell Distribution Width 23.5H, Platelet Count 69L, Mean Platelet Volume 7.4, Neutrophils (%) (Auto) , Lymphocytes (%) (Auto) , Monocytes (%) (Auto) , Eosinophils (%) (Auto) , Basophils (%) (Auto) , Differential Total Cells Counted 100, Neutrophils % ( Manual) 86H, Lymphocytes % (Manual) 5L, Monocytes % (Manual) 7, Eosinophils % ( Manual) 2, Basophils % (Manual) 0, Band Neutrophils 0, Platelet Estimate DecreasedL, Platelet Morphology Normal, Hypochromasia 2+, Anisocytosis 3+, Spherocytes 2+, Prothrombin Time 12.0H, Prothromb Time International Ratio 1.1, Activated Partial Thromboplast Time 32, Sodium Level 143, Potassium Level 4.2, Chloride Level 103, Carbon Dioxide Level 29, Anion Gap 12, Blood Urea Nitrogen 60H, Creatinine 6.1H, Estimat Glomerular Filtration Rate 6.8, Glucose Level 142H , Calcium Level 7.3L, Phosphorus Level 6.2H, Magnesium Level 2.3, Total Bilirubin 0.5, Aspartate Amino Transf (AST/SGOT) 31, Alanine Aminotransferase ( ALT/SGPT) 23, Alkaline Phosphatase 126H, Ammonia 41H, Troponin I 0.000, C- Reactive Protein, Quantitative 30.1H, Pro-B-Type Natriuretic Peptide 5323H, Total Protein 5.4L, Albumin 1.3L, Globulin 4.1, Albumin/Globulin Ratio 0.3L 12/03/19 11:21: POC Whole Blood Glucose 160H 12/03/19 12:10: White Blood Count 27.1*H, Red Blood Count 3.03L, Hemoglobin 8.2L, Hematocrit 26.2L, Mean Corpuscular Volume 87, Mean Corpuscular Hemoglobin 27.0, Mean Corpuscular Hemoglobin Concent 31.1L, Red Cell Distribution Width 24.8H, Platelet Count 58L, Mean Platelet Volume 7.5, Neutrophils (%) (Auto) , Lymphocytes (%) (Auto) , Monocytes (%) (Auto) , Eosinophils (%) (Auto) , Basophils (%) (Auto) , Differential Total Cells Counted 100, Neutrophils % ( Manual) 92H, Lymphocytes % (Manual) 2L, Monocytes % (Manual) 4, Eosinophils % ( Manual) 1, Basophils % (Manual) 0, Band Neutrophils 1, Platelet Estimate DecreasedL, Platelet Morphology Normal, Hypochromasia 2+, Anisocytosis 3+ Height (Feet): 5 Height (Inches): 4.00 Weight (Pounds): 239 Rebecca Schrodeer MD Dec 03, 2019 13:48
--- NOTE | 2019-12-03 14:20 | Hematology/Onc Progress Note ---
Assessment/Plan Assessment/Plan Assessment and Recs # Left LE DVT and Probable PE s/p 11/25 IVC filter placement --> v/q scan: Overall findings suggesting intermediate probability for pulmonary embolism. More sensitive evaluation can be made with CT angiogram of the chest as clinically indicated. --> v. duplex: STUDY POSITIVE FOR DVT IN THE LEFT COMMON FEMORAL TO PROXIMAL SUPERFICIAL FEMORAL VEIN. LEFT COMMON FEMORAL TO PROXIMAL SUPERFICIAL FEMORAL --> unable to start anticoag given severe anemia, etoh use --> outpatient followup # Anemia of chronic disease due to underlying chronic medical issues, multifactorial v Gi bleed --> Anemia workup has been ordered, rule out gi bleed --> No evidence of hemolysis is noted, peripheral smear has been reviewed. --> Hgb goal >7. Transfuse prn. --> Epogen or iron both have been started for esrd --> Medications have been reviewed --> low threshold for gi evaluation in case has occult + --> recommend etoh cessation --> hgb 8.3-->8-->7.9->8-->7.7->8.2 # Leukocytosis due to sepsis uti and cap -> abx as per id zosyn->vanc --> wbc 31-->24-->23-->16-->27-->33-_>27 --> imaging as needed # Thrombocytopenia likely due to infection --> trend 90 # Acute respiratory failure with hypoxia --> on bipap # ESRD --> per renal on hd # Sepsis with bilateral pna # CAP (community acquired pneumonia) # Hyperkalemia # Encephalopathy acute # Morbid obesity # History of EtOH abuse # Possible psychiatric disorder # Dvt ppx scds The timing of this note does not necessarily reflect the time of the patient was seen. Greatly appreciate consultation. Subjective Constitutional: Denies: no symptoms, chills, fever, malaise, weakness, other HEENT: Denies: no symptoms, eye pain, blurred vision, tearing, double vision, ear pain, ear discharge, nose pain, nose congestion, throat pain, throat swelling, mouth pain, mouth swelling, other Cardiovascular: Denies: no symptoms, chest pain, edema, irregular heart rate, lightheadedness, palpitations, syncope, other Respiratory: Denies: no symptoms, cough, shortness of breath, SOB with excertion, SOB at rest, sputum, wheezing, other Gastrointestinal/Abdominal: Denies: no symptoms, abdomen distended, abdominal pain, black stools, tarry stools, blood in stool, constipated, diarrhea, difficulty swallowing, nausea, poor appetite, poor fluid intake, rectal bleeding , vomiting, other Genitourinary: Denies: no symptoms, burning, discharge, frequency, flank pain, hematuria, incontinence, pain, urgency, other Endocrine: Denies: no symptoms, excessive sweating, flushing, intolerance to cold, intolerance to heat, increased hunger, increased thirst, increased urine, unexplained weight gain, unexplained weight loss, other Allergies: Coded Allergies: No Known Allergies (Unverified , 11/24/19) Subjective 11/27 more arousable on venturi mask, started on iv iron, plt lower 11/28 meds noted, no bleeding, doyle rn, on venturi mask, labs noted 11/29 small amount of bleeding, no night sweats, doyle rn, hgb 7.7 12/01 labs reviewed, on vnac, cbc is noted, no bleeding 12/02 cleared for potentail hd placement today, temp, per id cleared Objective Objective Current Medications Medications (Trade) Dose Ordered Sig/Brina Route PRN Reason Start Time Stop Time Status Last Admin Dose Admin Acetaminophen (Tylenol) 650 mg Q8H PRN NG Mild Pain (Pain Scale 1-3) 11/27/19 08:30 12/27/19 08:29 Acetaminophen/ Hydrocodone Bitart (Meridian 10/325) 1 tab Q8H PRN ORAL Severe Pain (Pain Scale 7-10) 11/27/19 08:30 12/04/19 08:29 11/29/19 21:46 Acetaminophen/ Hydrocodone Bitart (Mer[place] 5/325) 1 tab Q8H PRN ORAL Moderate Pain (Pain Scale 4-6) 11/27/19 08:30 12/04/19 08:29 11/30/19 22:43 Chlorhexidine Gluconate (Shonna-Hex 2%) 1 applic DAILY@1999 TOPIC 11/26/19 20:00 02/24/20 19:59 12/02/19 20:47 Dextrose (Dextrose 50%) 25 ml Q30M PRN IV Hypoglycemia 12/02/19 23:00 03/01/20 22:59 Dextrose (Dextrose 50%) 50 ml Q30M PRN IV Hypoglycemia 12/02/19 23:00 03/01/20 22:59 Docusate Sodium (Colace) 100 mg THREE TIMES A DAY ORAL 11/28/19 18:00 12/28/19 17:59 12/03/19 09:05 Epoetin Zay (Epoetin Zay(ESRD on dialysis)) 10,000 unit MON-WED-TUE SUBQ 11/26/19 21:00 02/24/20 20:59 11/30/19 21:21 Heparin Sodium (Porcine) (Heparin Sod 1000 units/ml 10ml) 1,000 unit DAILYPRN PRN INJ Radiology Procedure 12/03/19 12:00 12/03/19 18:00 Heparin Sodium/ Sodium Chloride (Heparin 1000 units/500ml Premix) 1,000 unit DAILYPRN PRN INJ Radiology Procedure 12/03/19 12:00 12/03/19 18:00 Insulin Aspart (NovoLOG) BEFORE MEALS AND HS SUBQ 12/03/19 06:30 03/02/20 06:29 12/03/19 05:45 Lactulose (Cephulac) 20 gm THREE TIMES A DAY ORAL 12/03/19 13:00 01/02/20 12:59 Lidocaine/ Epinephrine (Lidocaine 2%/ Epi 20ml) 40 ml DAILYPRN PRN INJ Radiology Procedure 12/03/19 12:00 12/03/19 18:00 Morphine Sulfate (Morphine Sulfate) 1 mg Q8H PRN IVP Breakthrough Pain 12/01/19 18:30 12/08/19 18:29 Pantoprazole (Protonix) 40 mg EVERY 12 HOURS ORAL 11/28/19 21:00 12/28/19 20:59 12/03/19 09:05 Polyethylene Glycol (Miralax) 17 gm BEDTIME ORAL 11/27/19 21:00 12/27/19 20:59 12/02/19 20:47 Sevelamer Carbonate (Renvela) 2,400 mg THREE TIMES A DAY ORAL 12/03/19 09:00 02/26/20 17:59 12/03/19 09:05 Thiamine HCl (Vitamin B1) 100 mg DAILY ORAL 11/29/19 09:00 12/29/19 08:59 12/03/19 09:05 Vancomycin HCl (Vanco pharmacy to dose) 1 ea DAILY PRN MISC Per rx protocol 11/30/19 11:30 12/30/19 11:29 Last 24 Hour Vital Signs Date Time Temp Pulse Resp B/P (MAP) Pulse Ox O2 Delivery O2 Flow Rate FiO2 12/03/19 12:00 14.0 55 12/03/19 12:00 97.9 102 30 112/59 (76) 98 12/03/19 12:00 103 12/03/19 11:51 Venturi Mask 14.0 12/03/19 08:00 98.5 103 30 106/61 (76) 93 12/03/19 08:00 101 12/03/19 08:00 Venturi Mask 14.0 12/03/19 08:00 14.0 55 12/03/19 07:00 94 Venturi Mask 14.0 55 12/03/19 04:00 14.0 55 12/03/19 04:00 Venturi Mask 8.0 12/03/19 04:00 98.2 104 36 117/60 (79) 97 12/03/19 04:00 104 12/03/19 00:00 100 12/03/19 00:00 Venturi Mask 8.0 12/03/19 00:00 98.6 100 24 111/61 (78) 92 12/02/19 20:00 98.8 94 24 115/64 (81) 94 12/02/19 20:00 Venturi Mask 8.0 12/02/19 20:00 94 12/02/19 20:00 10.0 45 12/02/19 19:10 94 Venturi Mask 14.0 55 12/02/19 17:00 91 12/02/19 16:00 10.0 45 12/02/19 16:00 Venturi Mask 10.0 12/02/19 16:00 98.4 93 21 116/52 (73) 94 12/02/19 12:00 10.0 45 12/02/19 12:00 96 12/02/19 12:00 Venturi Mask 10.0 12/02/19 12:00 97.7 96 23 124/65 (84) 93 12/02/19 09:00 10.0 45 12/02/19 08:00 Venturi Mask 10.0 12/02/19 08:00 97.5 90 24 112/43 (66) 92 12/02/19 07:40 90 12/02/19 07:00 93 Venturi Mask 10.0 45 12/02/19 04:00 Venturi Mask 8.0 12/02/19 04:00 8.0 40 12/02/19 04:00 97.7 89 24 101/57 (72) 97 12/02/19 03:31 93 12/02/19 00:00 98.1 94 24 116/64 (81) 93 12/02/19 00:00 8.0 40 12/02/19 00:00 96 12/02/19 00:00 Venturi Mask 8.0 12/01/19 20:00 8.0 40 12/01/19 20:00 97 12/01/19 20:00 Venturi Mask 8.0 12/01/19 20:00 97.6 99 24 107/55 (72) 93 12/01/19 19:00 95 Venturi Mask 10.0 45 12/01/19 16:00 94 12/01/19 16:00 8.0 40 12/01/19 16:00 Venturi Mask 8.0 12/01/19 16:00 98.1 96 24 107/51 (69) 96 Intake and Output 12/02/19 12/03/19 19:00 07:00 Intake Total 300 ml 400 ml Output Total 1400 ml 1000 ml Balance -1100 ml -600 ml Intake Oral 300 ml 400 ml Output Urine Total 1400 ml 1000 ml # Bowel Movements 1 Labs Test 11/30/19 16:30 12/01/19 04:55 12/01/19 11:55 12/01/19 12:09 White Blood Count 31.4 K/UL (4.8-10.8) 35.1 K/UL (4.8-10.8) 39.7 K/UL (4.8-10.8) Red Blood Count 2.70 M/UL (4.20-5.40) 3.38 M/UL (4.20-5.40) 3.33 M/UL (4.20-5.40) Hemoglobin 6.5 G/DL (12.0-16.0) 9.0 G/DL (12.0-16.0) 8.9 G/DL (12.0-16.0) Hematocrit 21.2 % (37.0-47.0) 28.1 % (37.0-47.0) 28.2 % (37.0-47.0) Mean Corpuscular Volume 79 FL (80-99) 83 FL (80-99) 85 FL (80-99) Mean Corpuscular Hemoglobin 24.3 PG (27.0-31.0) 26.6 PG (27.0-31.0) 26.7 PG (27.0-31.0) Mean Corpuscular Hemoglobin Concent 30.9 G/DL (32.0-36.0) 31.9 G/DL (32.0-36.0) 31.6 G/DL (32.0-36.0) Red Cell Distribution Width 26.1 % (11.6-14.8) 21.5 % (11.6-14.8) 22.4 % (11.6-14.8) Platelet Count 78 K/UL (150-450) 76 K/UL (150-450) 68 K/UL (150-450) Mean Platelet Volume 7.6 FL (6.5-10.1) 7.9 FL (6.5-10.1) 8.1 FL (6.5-10.1) Neutrophils (%) (Auto) % (45.0-75.0) % (45.0-75.0) % (45.0-75.0) Lymphocytes (%) (Auto) % (20.0-45.0) % (20.0-45.0) % (20.0-45.0) Monocytes (%) (Auto) % (1.0-10.0) % (1.0-10.0) % (1.0-10.0) Eosinophils (%) (Auto) % (0.0-3.0) % (0.0-3.0) % (0.0-3.0) Basophils (%) (Auto) % (0.0-2.0) % (0.0-2.0) % (0.0-2.0) Differential Total Cells Counted 100 100 100 Neutrophils % (Manual) 83 % (45-75) 88 % (45-75) 96 % (45-75) Lymphocytes % (Manual) 6 % (20-45) 5 % (20-45) 2 % (20-45) Monocytes % (Manual) 5 % (1-10) 6 % (1-10) 2 % (1-10) Eosinophils % (Manual) 1 % (0-3) 1 % (0-3) 0 % (0-3) Basophils % (Manual) 0 % (0-2) 0 % (0-2) 0 % (0-2) Band Neutrophils 5 % (0-8) 0 % (0-8) 0 % (0-8) Platelet Estimate Decreased Decreased Decreased Platelet Morphology Normal Normal Normal Polychromasia 2+ Hypochromasia 2+ 2+ 2+ Anisocytosis 3+ 3+ 3+ Sodium Level 137 MMOL/L (136-145) Potassium Level 5.2 MMOL/L (3.5-5.1) Chloride Level 99 MMOL/L (98-107) Carbon Dioxide Level 25 MMOL/L (21-32) Anion Gap 13 mmol/L (5-15) Blood Urea Nitrogen 77 mg/dL (7-18) Creatinine 7.5 MG/DL (0.55-1.30) Estimat Glomerular Filtration Rate 5.3 mL/min (>60) Glucose Level 72 MG/DL (74-106) Calcium Level 7.3 MG/DL (8.5-10.1) Phosphorus Level 8.1 MG/DL (2.5-4.9) Magnesium Level 2.4 MG/DL (1.8-2.4) Total Bilirubin 0.6 MG/DL (0.2-1.0) Aspartate Amino Transf (AST/SGOT) 34 U/L (15-37) Alanine Aminotransferase (ALT/SGPT) 18 U/L (12-78) Alkaline Phosphatase 102 U/L (46-116) Total Protein 5.0 G/DL (6.4-8.2) Albumin 1.3 G/DL (3.4-5.0) Globulin 3.7 g/dL Albumin/Globulin Ratio 0.4 (1.0-2.7) POC Whole Blood Glucose 95 MG/DL (74-106) Test 12/01/19 18:42 12/01/19 20:10 12/02/19 03:22 12/02/19 11:49 POC Whole Blood Glucose 86 MG/DL (74-106) 167 MG/DL (74-106) White Blood Count 41.7 K/UL (4.8-10.8) 33.0 K/UL (4.8-10.8) Red Blood Count 3.09 M/UL (4.20-5.40) 3.02 M/UL (4.20-5.40) Hemoglobin 8.2 G/DL (12.0-16.0) 8.0 G/DL (12.0-16.0) Hematocrit 25.7 % (37.0-47.0) 25.4 % (37.0-47.0) Mean Corpuscular Volume 83 FL (80-99) 84 FL (80-99) Mean Corpuscular Hemoglobin 26.6 PG (27.0-31.0) 26.6 PG (27.0-31.0) Mean Corpuscular Hemoglobin Concent 31.9 G/DL (32.0-36.0) 31.6 G/DL (32.0-36.0) Red Cell Distribution Width 23.9 % (11.6-14.8) 22.4 % (11.6-14.8) Platelet Count 57 K/UL (150-450) 62 K/UL (150-450) Mean Platelet Volume 8.5 FL (6.5-10.1) 7.7 FL (6.5-10.1) Neutrophils (%) (Auto) % (45.0-75.0) % (45.0-75.0) Lymphocytes (%) (Auto) % (20.0-45.0) % (20.0-45.0) Monocytes (%) (Auto) % (1.0-10.0) % (1.0-10.0) Eosinophils (%) (Auto) % (0.0-3.0) % (0.0-3.0) Basophils (%) (Auto) % (0.0-2.0) % (0.0-2.0) Differential Total Cells Counted 100 100 Neutrophils % (Manual) 91 % (45-75) 93 % (45-75) Lymphocytes % (Manual) 3 % (20-45) 4 % (20-45) Monocytes % (Manual) 5 % (1-10) 3 % (1-10) Eosinophils % (Manual) 0 % (0-3) 0 % (0-3) Basophils % (Manual) 1 % (0-2) 0 % (0-2) Band Neutrophils 0 % (0-8) 0 % (0-8) Smudge Cells Occasional Platelet Estimate Decreased Decreased Platelet Morphology Normal Normal Hypochromasia 2+ 2+ Anisocytosis 2+ 3+ Sodium Level 141 MMOL/L (136-145) Potassium Level 4.4 MMOL/L (3.5-5.1) Chloride Level 101 MMOL/L (98-107) Carbon Dioxide Level 25 MMOL/L (21-32) Anion Gap 16 mmol/L (5-15) Blood Urea Nitrogen 62 mg/dL (7-18) Creatinine 6.7 MG/DL (0.55-1.30) Estimat Glomerular Filtration Rate 6.1 mL/min (>60) Glucose Level 65 MG/DL (74-106) Uric Acid 7.8 MG/DL (2.6-7.2) Calcium Level 7.5 MG/DL (8.5-10.1) Phosphorus Level 7.3 MG/DL (2.5-4.9) Magnesium Level 2.3 MG/DL (1.8-2.4) Total Bilirubin 0.5 MG/DL (0.2-1.0) Aspartate Amino Transf (AST/SGOT) 32 U/L (15-37) Alanine Aminotransferase (ALT/SGPT) 18 U/L (12-78) Alkaline Phosphatase 106 U/L (46-116) C-Reactive Protein, Quantitative 29.6 mg/dL (0.00-0.90) Pro-B-Type Natriuretic Peptide 2907 pg/mL (0-125) Total Protein 5.0 G/DL (6.4-8.2) Albumin 1.2 G/DL (3.4-5.0) Globulin 3.8 g/dL Albumin/Globulin Ratio 0.3 (1.0-2.7) Random Vancomycin Level 14.8 ug/mL Test 12/02/19 12:34 12/02/19 17:08 12/03/19 03:39 12/03/19 11:21 White Blood Count 29.6 K/UL (4.8-10.8) 28.4 K/UL (4.8-10.8) Red Blood Count 3.12 M/UL (4.20-5.40) 3.03 M/UL (4.20-5.40) Hemoglobin 8.5 G/DL (12.0-16.0) 8.3 G/DL (12.0-16.0) Hematocrit 26.5 % (37.0-47.0) 25.9 % (37.0-47.0) Mean Corpuscular Volume 85 FL (80-99) 85 FL (80-99) Mean Corpuscular Hemoglobin 27.4 PG (27.0-31.0) 27.5 PG (27.0-31.0) Mean Corpuscular Hemoglobin Concent 32.2 G/DL (32.0-36.0) 32.2 G/DL (32.0-36.0) Red Cell Distribution Width 23.3 % (11.6-14.8) 23.5 % (11.6-14.8) Platelet Count 68 K/UL (150-450) 69 K/UL (150-450) Mean Platelet Volume 8.0 FL (6.5-10.1) 7.4 FL (6.5-10.1) Neutrophils (%) (Auto) % (45.0-75.0) % (45.0-75.0) Lymphocytes (%) (Auto) % (20.0-45.0) % (20.0-45.0) Monocytes (%) (Auto) % (1.0-10.0) % (1.0-10.0) Eosinophils (%) (Auto) % (0.0-3.0) % (0.0-3.0) Basophils (%) (Auto) % (0.0-2.0) % (0.0-2.0) Differential Total Cells Counted 100 100 Neutrophils % (Manual) 94 % (45-75) 86 % (45-75) Lymphocytes % (Manual) 3 % (20-45) 5 % (20-45) Monocytes % (Manual) 3 % (1-10) 7 % (1-10) Eosinophils % (Manual) 0 % (0-3) 2 % (0-3) Basophils % (Manual) 0 % (0-2) 0 % (0-2) Band Neutrophils 0 % (0-8) 0 % (0-8) Platelet Estimate Adequate Decreased Platelet Morphology Normal Normal Hypochromasia 2+ 2+ Anisocytosis 3+ 3+ POC Whole Blood Glucose 239 MG/DL (74-106) 160 MG/DL (74-106) Spherocytes 2+ Prothrombin Time 12.0 SEC (9.30-11.50) Prothromb Time International Ratio 1.1 (0.9-1.1) Activated Partial Thromboplast Time 32 SEC (23-33) Sodium Level 143 MMOL/L (136-145) Potassium Level 4.2 MMOL/L (3.5-5.1) Chloride Level 103 MMOL/L (98-107) Carbon Dioxide Level 29 MMOL/L (21-32) Anion Gap 12 mmol/L (5-15) Blood Urea Nitrogen 60 mg/dL (7-18) Creatinine 6.1 MG/DL (0.55-1.30) Estimat Glomerular Filtration Rate 6.8 mL/min (>60) Glucose Level 142 MG/DL (74-106) Calcium Level 7.3 MG/DL (8.5-10.1) Phosphorus Level 6.2 MG/DL (2.5-4.9) Magnesium Level 2.3 MG/DL (1.8-2.4) Total Bilirubin 0.5 MG/DL (0.2-1.0) Aspartate Amino Transf (AST/SGOT) 31 U/L (15-37) Alanine Aminotransferase (ALT/SGPT) 23 U/L (12-78) Alkaline Phosphatase 126 U/L (46-116) Ammonia 41 umol/L (11-32) Troponin I 0.000 ng/mL (0.000-0.056) C-Reactive Protein, Quantitative 30.1 mg/dL (0.00-0.90) Pro-B-Type Natriuretic Peptide 5323 pg/mL (0-125) Total Protein 5.4 G/DL (6.4-8.2) Albumin 1.3 G/DL (3.4-5.0) Globulin 4.1 g/dL Albumin/Globulin Ratio 0.3 (1.0-2.7) Test 12/03/19 12:10 White Blood Count 27.1 K/UL (4.8-10.8) Red Blood Count 3.03 M/UL (4.20-5.40) Hemoglobin 8.2 G/DL (12.0-16.0) Hematocrit 26.2 % (37.0-47.0) Mean Corpuscular Volume 87 FL (80-99) Mean Corpuscular Hemoglobin 27.0 PG (27.0-31.0) Mean Corpuscular Hemoglobin Concent 31.1 G/DL (32.0-36.0) Red Cell Distribution Width 24.8 % (11.6-14.8) Platelet Count 58 K/UL (150-450) Mean Platelet Volume 7.5 FL (6.5-10.1) Neutrophils (%) (Auto) % (45.0-75.0) Lymphocytes (%) (Auto) % (20.0-45.0) Monocytes (%) (Auto) % (1.0-10.0) Eosinophils (%) (Auto) % (0.0-3.0) Basophils (%) (Auto) % (0.0-2.0) Differential Total Cells Counted 100 Neutrophils % (Manual) 92 % (45-75) Lymphocytes % (Manual) 2 % (20-45) Monocytes % (Manual) 4 % (1-10) Eosinophils % (Manual) 1 % (0-3) Basophils % (Manual) 0 % (0-2) Band Neutrophils 1 % (0-8) Platelet Estimate Decreased Platelet Morphology Normal Hypochromasia 2+ Anisocytosis 3+ Height (Feet): 5 Height (Inches): 4.00 Weight (Pounds): 239 Objective Vitals: reviewed General: NAD HEENT: nc, at Neck: supple Chest: clear breath sounds bilaterally Cardiovascular: RRR, no s3, s4 Abdomen: soft, nontender, nd Extremities: no cce, normal range of motion Neuro: alert and oriented Holland Miranda MD Dec 03, 2019 14:20
--- NOTE | 2019-12-03 14:33 | Infectious Diseases Prog Note ---
Assessment/Plan ASSESSMENT: 69yo F with: 1. Respiratory distress.- SP Bipap- sp NC> VM 40%, 8L 11/26> 4l NC 11/27> VM 40% 8L 11/28 > VM 55% 14L 12/02 2. B/l Pneumonia- COVID neg x3 -11/24 sp cx MRSA -11/23 Rapid COVID PCR neg x2; 11/24 rapid COVID PCR neg -11/23 CT chest: Bilateral pneumonia, with greater confluence in the posterior right lower lobe. 3. Severe Leukocytosis, acute reacted to distress versus sepsis. -up to 40 - likely multifactorial due to PE/DVT, PNA, pancreatitis, acute renal failure, vaginal bleeding- now trending down --11/29, 11/30 Bcx NTD -pelvic US: LIMITED TRANSABDOMINAL STUDY ONLY WITH RELATIVELY POOR DELINEATION OF THE REPRODUCTIVE ORGANS. HETEROGENEOUS UTERUS WITH APPARENT FIBROID CHANGE. RIGHT OVARY NOT VISUALIZED AND ENDOMETRIAL STRIPE ALSO POORLY SEEN LEFT OVARY IS ONLY MARGINALLY SEEN AND GROSSLY UNREMARKABLE. -Abd US: STUDY LIMITED DUE TO BODY HABITUS AND BOWEL GAS. FATTY LIVER WITH A SMALL SEPTATED CYST. GALLSTONES.THE SPLEEN, LEFT KIDNEY, COMMON BILE DUCT AND PANCREAS WELL AORTA AND CAVA ARE NOT WELL DEFINED. -CT abd/p : Enlarged pelvic lymph nodes could reflect reactive changes from cellulitis in the setting of generalized bony wall edema, or other acute inflammatory changes but neoplasm such as lymphomas not excluded. Correlate clinically. Ultrasound of the pelvis could be considered to help distinguish patient's ovaries from presumed pelvic adenopathy.Mild bilateral hydronephrosis , with a Kaminski catheter in the urinary bladder. Correlate with bladder catheter function. 4. Sepsis.. -11/28 u/a wbc 10-15, nit neg, leuk +3; ucx neg -11/25 ucx Neg -11/23 BCx Neg 5.Vaginal bleeding 6 L LE DVT and Probable PE -CTA chest: NO CT EVIDENCE OF PULMONARY EMBOLISM TO THE EXTENT VISUALIZED.BILATERAL INFILTRATES AND RIGHT LOWER LOBE CONSOLIDATION. THE CONSOLIDATION DOESOBSCURE SOME PERIPHERAL SUBSEGMENTAL BRANCHES OF THE RIGHT LOWER LOBE AND SMALLPERIPHERAL EMBOLI IN THIS AREA CANNOT BE EXCLUDED.MEDIASTINAL ADENOPATHY.ANASARCA. -11/25 SP IVC filter placement -v/q scan: Overall findings suggesting intermediate probability for pulmonary embolism. More sensitive evaluation can be made with CT angiogram of the chest as clinically indicated. -v. duplex: STUDY POSITIVE FOR DVT IN THE LEFT COMMON FEMORAL TO PROXIMAL SUPERFICIAL FEMORAL VEIN. 7. Severe acute renal failure; improving- likely underlying CKD -on HD now 8. Acute pancreatitis EtOh abuse PLAN: Cont vancomycin #4 (abx d #02/12) for MRSA pna 11/29 SP Zosyn #7 11/29 SP linezolid #5 (changed given thrombocytopenia) 11/23 SP Ceftriaxone x1, Azythromycin x1, IV Vancomycin x1 Trend WBC daily, improving 2. Monitor blood culture. 3. Monitor urine culture. 4. COVID neg x3 (2 were sent on same day) 5. Monitor lipase. 6. f/u flow cytometry 7. WBC is trending down, afebrile and BCx neg, ok to proceed with permacath insertion Discussed with RN Thank you for this consult. We will continue to follow. Subjective Allergies: Coded Allergies: No Known Allergies (Unverified , 11/24/19) afebrile on VM 55% wbc improving Bcx NTD Objective Last 24 Hour Vital Signs Date Time Temp Pulse Resp B/P (MAP) Pulse Ox O2 Delivery O2 Flow Rate FiO2 12/03/19 12:00 14.0 55 12/03/19 12:00 97.9 102 30 112/59 (76) 98 12/03/19 12:00 103 12/03/19 11:51 Venturi Mask 14.0 12/03/19 08:00 98.5 103 30 106/61 (76) 93 12/03/19 08:00 101 12/03/19 08:00 Venturi Mask 14.0 12/03/19 08:00 14.0 55 12/03/19 07:00 94 Venturi Mask 14.0 55 12/03/19 04:00 14.0 55 12/03/19 04:00 Venturi Mask 8.0 12/03/19 04:00 98.2 104 36 117/60 (79) 97 12/03/19 04:00 104 12/03/19 00:00 100 12/03/19 00:00 Venturi Mask 8.0 12/03/19 00:00 98.6 100 24 111/61 (78) 92 12/02/19 20:00 98.8 94 24 115/64 (81) 94 12/02/19 20:00 Venturi Mask 8.0 12/02/19 20:00 94 12/02/19 20:00 10.0 45 12/02/19 19:10 94 Venturi Mask 14.0 55 12/02/19 17:00 91 12/02/19 16:00 10.0 45 12/02/19 16:00 Venturi Mask 10.0 12/02/19 16:00 98.4 93 21 116/52 (73) 94 Height (Feet): 5 Height (Inches): 4.00 Weight (Pounds): 239 HEENT: No pale conjunctivae. No icterus. NECK: No lymphadenopathy. CHEST: Coarse breathing sounds. HEART: S1-S2. ABDOMEN: Obese. EXTREMITIES: No cyanosis at this time. NEUROLOGIC: Awake. Microbiology Date/Time Source Procedure Growth Status 12/01/19 12:05 Blood Blood Culture - Preliminary NO GROWTH AFTER 24 HOURS Resulted 12/01/19 11:55 Blood Blood Culture - Preliminary NO GROWTH AFTER 24 HOURS Resulted 11/30/19 16:45 Blood Blood Culture - Preliminary NO GROWTH AFTER 48 HOURS Resulted 11/30/19 16:30 Blood Blood Culture - Preliminary NO GROWTH AFTER 48 HOURS Resulted Laboratory Tests Test 12/02/19 17:08 12/03/19 03:39 12/03/19 11:21 12/03/19 12:10 POC Whole Blood Glucose 239 MG/DL (74-106) H 160 MG/DL (74-106) H White Blood Count 28.4 K/UL (4.8-10.8) *H 27.1 K/UL (4.8-10.8) *H Red Blood Count 3.03 M/UL (4.20-5.40) L 3.03 M/UL (4.20-5.40) L Hemoglobin 8.3 G/DL (12.0-16.0) L 8.2 G/DL (12.0-16.0) L Hematocrit 25.9 % (37.0-47.0) L 26.2 % (37.0-47.0) L Mean Corpuscular Volume 85 FL (80-99) 87 FL (80-99) Mean Corpuscular Hemoglobin 27.5 PG (27.0-31.0) 27.0 PG (27.0-31.0) Mean Corpuscular Hemoglobin Concent 32.2 G/DL (32.0-36.0) 31.1 G/DL (32.0-36.0) L Red Cell Distribution Width 23.5 % (11.6-14.8) H 24.8 % (11.6-14.8) H Platelet Count 69 K/UL (150-450) L 58 K/UL (150-450) L Mean Platelet Volume 7.4 FL (6.5-10.1) 7.5 FL (6.5-10.1) Neutrophils (%) (Auto) % (45.0-75.0) % (45.0-75.0) Lymphocytes (%) (Auto) % (20.0-45.0) % (20.0-45.0) Monocytes (%) (Auto) % (1.0-10.0) % (1.0-10.0) Eosinophils (%) (Auto) % (0.0-3.0) % (0.0-3.0) Basophils (%) (Auto) % (0.0-2.0) % (0.0-2.0) Differential Total Cells Counted 100 100 Neutrophils % (Manual) 86 % (45-75) H 92 % (45-75) H Lymphocytes % (Manual) 5 % (20-45) L 2 % (20-45) L Monocytes % (Manual) 7 % (1-10) 4 % (1-10) Eosinophils % (Manual) 2 % (0-3) 1 % (0-3) Basophils % (Manual) 0 % (0-2) 0 % (0-2) Band Neutrophils 0 % (0-8) 1 % (0-8) Platelet Estimate Decreased L Decreased L Platelet Morphology Normal Normal Hypochromasia 2+ 2+ Anisocytosis 3+ 3+ Spherocytes 2+ Prothrombin Time 12.0 SEC (9.30-11.50) H Prothromb Time International Ratio 1.1 (0.9-1.1) Activated Partial Thromboplast Time 32 SEC (23-33) Sodium Level 143 MMOL/L (136-145) Potassium Level 4.2 MMOL/L (3.5-5.1) Chloride Level 103 MMOL/L (98-107) Carbon Dioxide Level 29 MMOL/L (21-32) Anion Gap 12 mmol/L (5-15) Blood Urea Nitrogen 60 mg/dL (7-18) H Creatinine 6.1 MG/DL (0.55-1.30) H Estimat Glomerular Filtration Rate 6.8 mL/min (>60) Glucose Level 142 MG/DL (74-106) H Calcium Level 7.3 MG/DL (8.5-10.1) L Phosphorus Level 6.2 MG/DL (2.5-4.9) H Magnesium Level 2.3 MG/DL (1.8-2.4) Total Bilirubin 0.5 MG/DL (0.2-1.0) Aspartate Amino Transf (AST/SGOT) 31 U/L (15-37) Alanine Aminotransferase (ALT/SGPT) 23 U/L (12-78) Alkaline Phosphatase 126 U/L (46-116) H Ammonia 41 umol/L (11-32) H Troponin I 0.000 ng/mL (0.000-0.056) C-Reactive Protein, Quantitative 30.1 mg/dL (0.00-0.90) H Pro-B-Type Natriuretic Peptide 5323 pg/mL (0-125) H Total Protein 5.4 G/DL (6.4-8.2) L Albumin 1.3 G/DL (3.4-5.0) L Globulin 4.1 g/dL Albumin/Globulin Ratio 0.3 (1.0-2.7) L Current Medications Medications (Trade) Dose Ordered Sig/Brina Route PRN Reason Start Time Stop Time Status Last Admin Dose Admin Acetaminophen (Tylenol) 650 mg Q8H PRN NG Mild Pain (Pain Scale 1-3) 11/27/19 08:30 12/27/19 08:29 Acetaminophen/ Hydrocodone Bitart ([place] 10/325) 1 tab Q8H PRN ORAL Severe Pain (Pain Scale 7-10) 11/27/19 08:30 12/04/19 08:29 11/29/19 21:46 Acetaminophen/ Hydrocodone Bitart ([place] 5/325) 1 tab Q8H PRN ORAL Moderate Pain (Pain Scale 4-6) 11/27/19 08:30 12/04/19 08:29 11/30/19 22:43 Chlorhexidine Gluconate (Shonna-Hex 2%) 1 applic DAILY@1999 TOPIC 11/26/19 20:00 02/24/20 19:59 12/02/19 20:47 Dextrose (Dextrose 50%) 25 ml Q30M PRN IV Hypoglycemia 12/02/19 23:00 03/01/20 22:59 Dextrose (Dextrose 50%) 50 ml Q30M PRN IV Hypoglycemia 12/02/19 23:00 03/01/20 22:59 Docusate Sodium (Colace) 100 mg THREE TIMES A DAY ORAL 11/28/19 18:00 12/28/19 17:59 12/03/19 09:05 Epoetin Zay (Epoetin Zay(ESRD on dialysis)) 10,000 unit TUE-TUE-TUE SUBQ 11/26/19 21:00 02/24/20 20:59 11/30/19 21:21 Heparin Sodium (Porcine) (Heparin Sod 1000 units/ml 10ml) 1,000 unit DAILYPRN PRN INJ Radiology Procedure 12/03/19 12:00 12/03/19 18:00 Heparin Sodium/ Sodium Chloride (Heparin 1000 units/500ml Premix) 1,000 unit DAILYPRN PRN INJ Radiology Procedure 12/03/19 12:00 12/03/19 18:00 Insulin Aspart (NovoLOG) BEFORE MEALS AND HS SUBQ 12/03/19 06:30 03/02/20 06:29 12/03/19 05:45 Lactulose (Cephulac) 20 gm THREE TIMES A DAY ORAL 12/03/19 13:00 01/02/20 12:59 Lidocaine/ Epinephrine (Lidocaine 2%/ Epi 20ml) 40 ml DAILYPRN PRN INJ Radiology Procedure 12/03/19 12:00 12/03/19 18:00 Morphine Sulfate (Morphine Sulfate) 1 mg Q8H PRN IVP Breakthrough Pain 12/01/19 18:30 12/08/19 18:29 Pantoprazole (Protonix) 40 mg EVERY 12 HOURS ORAL 11/28/19 21:00 12/28/19 20:59 12/03/19 09:05 Polyethylene Glycol (Miralax) 17 gm BEDTIME ORAL 11/27/19 21:00 12/27/19 20:59 12/02/19 20:47 Sevelamer Carbonate (Renvela) 2,400 mg THREE TIMES A DAY ORAL 12/03/19 09:00 02/26/20 17:59 12/03/19 09:05 Thiamine HCl (Vitamin B1) 100 mg DAILY ORAL 11/29/19 09:00 12/29/19 08:59 12/03/19 09:05 Vancomycin HCl (Vanco pharmacy to dose) 1 ea DAILY PRN MISC Per rx protocol 11/30/19 11:30 12/30/19 11:29 Britt Jimenez M.D. Dec 03, 2019 14:33
--- NOTE | 2019-12-03 15:37 | Diagnostic Imaging Report ---
EXAM: XR Chest, 1 View CLINICAL HISTORY: SOB TECHNIQUE: Frontal view of the chest. COMPARISON: Chest radiograph on 11/30/2019 FINDINGS: Hardware: None. Lungs/pleura: Slightly increased patchy opacities/consolidations in right greater than left lungs. Small pleural effusions are not excluded. Heart/mediastinum: Stable mild enlargement of the cardiac silhouette. Soft tissues: Unremarkable. Bones: No acute fracture. Degenerative changes of the spine. Upper abdomen: Normal. IMPRESSION: Slightly increased patchy opacities/consolidations in right greater than left lungs. Small pleural effusions are not excluded.
[2019-12-03] MEDS ORDERED: NS 275ml ONE (17:17)
--- NOTE | 2019-12-03 17:28 | General Progress Note ---
Progress Note Progress Note REHAB F/U PROGRESS NOTE: SUBJECTIVE: ALERT AND AWAKE O2 MASK DENIES PAIN HD TODAY CHART AND MEDS REVIEWED VAGINAL BLEED SUBSIDED PER NURSING STAFF, PRESENT AT THE BEDSIDE. PER PT >> Rolling * Maximum Assistance Supine to Sit * Maximum Assistance Bed Mobility Assistive Devices * Bed Rail Bed Mobility Comments * Pt limited by weakness and quick muscle fatiguability. Pt requried intermittent rest breaks to complete turning/rolling and scooting activities. Pt ablet o initiate supine to/from sitting however too fatigue and weak to fully complete the tasks. Sit to Stand * Unable REVIEW OF SYSTEMS: EYES: Denies diplopia. ENT: Dysphagia. CARDIOVASCULAR : No chest pain. PULMONARY: Shortness of breath and cough. GASTROINTESTINAL: No abdominal pain. GENITOURINARY: Vaginal bleed and acute kidney injury on hemodialysis. INTEGUMENTARY: Multiple ulcers. NEUROLOGIC: Cognitive memory impairment and generalized weakness. PHYSICAL EXAMINATION: VITAL SIGNS: PER CHART, NOTED. HEENT: No facial droop. NECK: Supple HEART: Regular. LUNGS: Diminished breath sounds of bilateral lung montane[place]. ABDOMEN: Soft, nontender, nondistended. EXTREMITIES: Edema bilateral lower limbs. SKIN: Multiple ulcers per wound care team. NEURO: Alert, awake, follows commands. She knows she is in the hospital, unable to recall the name of hospital, Movement of bilateral upper and lower limb at the level of 2 to 3/5. LABORATORY DATA: PER CHART, NOTED. ASSESSMENT: The patient is a 69-year-old female with. 1. Acute toxic metabolic encephalopathy. 2. Quadriplegia. 3. Acute kidney injury, now on hemodialysis. 4. Vaginal bleeding and severe anemia requiring blood transfusion. 5. Negative COVID-19 on two settings of 11/24/2019 and 11/25/2019 per Microbiology reports. 6. Bilateral pneumonia. 7. Positive deep venous thrombosis of left common femoral to proximal superficial femoral vein, status post IVC filter placement on 11/26/2019. 8. Debility and functional decline. 9. Gait abnormality. 10. Acute diastolic congestive heart failure. 11. Alcoholism. 12. Dyslipidemia. 13. Transaminitis. 14. Thrombocytopenia. 15. Leukocytosis. 16. Morbid obesity with body mass index of over 41. RECOMMENDATION: 1. Continue medical management per Medicine and surgery. 2. Skin care and wound care. 3. Fall precaution, pressure ulcer precaution, cardiac precaution, 4. aspiration precaution. 5. Nutritional support. 6. Rehabilitation with physical therapy, occupational therapy, speech therapy, and 24 hours nursing care. 7. Physical therapy for range of motion, transfer training, endurance, balance, and ambulation training with appropriate assistive device with cardiac precaution. 8. Occupational therapy for activities of daily living, equipment function, transfer training, upper extremity range of motion and strengthening exercise. 9. Speech therapy for cognition, memory, swallow, speech , language re- training. 10. Nursing for evaluation of her bowel and bladder, medication regimen, skin care prevention of pressure ulcer, patient and family education. 11. The patient eventually requires acute inpatient rehabilitation placement when the patient is medically stable and cleared. not ready for ARU at this time. d/w nursing. Chester Eldridge MD Dec 03, 2019 17:28
--- NOTE | 2019-12-03 17:38 | Pre-Procedure Note/Attestation ---
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 Dec 03, 2019 17:38
--- NOTE | 2019-12-03 18:05 | Diagnostic Imaging Report ---
Indications: Needs long-term dialysis access Technique: . Total sterile technique, including sterile probe cover and sterile gel, sterile gloves, hand hygiene, hat, mask,, sterile gown, large sterile drape, and preparation with 2% chlorhexidine utilized. Local anesthesia with 1% lidocaine. Under real-time ultrasound guidance, puncture right internal jugular vein using 21-gauge micropuncture needle, passage 0.018 guidewire, exchange for 4 Algerian micropuncture introducer. The guidewire was used to measure the appropriate catheter length, and was removed. The sheath was left in place. The subcutaneous tract was then anesthetized with 1% lidocaine. A chest dermatotomy was made . The tunneling device was used to pull a 14.5 Algerian 19 cm tip to cuff catheter through the subcutaneous tunnel to the neck dermatotomy. A guidewire was passed through the neck introducer into the inferior vena cava, and serial dilators were passed over it, followed by the introduction of a 16 [place]ian AirGuard peel-away sheath. The catheter was then introduced into the sheath, the peel-away sheath was removed. Digital radiograph documents satisfactory catheter tip position in the high right atrium, no kinking at the insertion site. Both catheter ports aspirated and flushed. Catheter was fixed to the skin. Patient tolerated procedure well without immediate complication. Total fluoroscopy time 21.6 seconds. Total fluoroscopy dose 4.14 mGy. Total number fluoroscopic images obtained: 2 Patient monitored throughout the procedure by dedicated interventional radiology nurse. Total procedure time 15 minutes. Comparison: None. Findings: Ultrasound demonstrated a patent and compressible internal jugular vein. Needle noted within this renal ultrasound for venous access. Completion radiograph documents satisfactory position and course of the catheter, catheter tip at the Cavoatrial junction. IMPRESSION: Successful placement of right transjugular tunneled dialysis catheter, as described above Catheter cleared for immediate use.
[2019-12-03] MEDS: Dyna-Hex 2% Top Sol 2oz TOPIC SCH (20:49)
[2019-12-03] MEDS: Miralax 17gm pkt ORAL SCH (20:51)
[2019-12-03] MEDS ORDERED: Epoetin Alfa-EPBX(ESRD on dialysis)2000 units/ml vial SUBQ SCH (21:00)
[2019-12-03] MEDS ORDERED: Epoetin Alfa-EPBX(ESRD on dialysis)4000 units/ml vial SUBQ SCH (21:00)
[2019-12-04] VITALS: BP 122/68
[2019-12-04 04:00] VITALS: BP 103/56
[2019-12-04 05:01] LABS: HEMATOCRIT 24.9 % (37.0-47.0); HEMOGLOBIN 7.7 G/DL (12.0-16.0); MEAN CORPUSCULAR VOLUME 88 FL (80-99); PLATELET COUNT 56 K/UL (150-450); RED BLOOD COUNT 2.84 M/UL (4.20-5.40)
[2019-12-04 05:30] LABS: ALANINE AMINOTRANSFERASE 7 U/L (12-78); ALBUMIN 1.3 G/DL (3.4-5.0); ALBUMIN/GLOBULIN RATIO 0.3 (1.0-2.7); ALKALINE PHOSPHATASE 126 U/L (46-116); ANION GAP 4 mmol/L (5-15); ASPARTATE AMINO TRANSFERASE 29 U/L (15-37); BILIRUBIN,TOTAL 0.3 MG/DL (0.2-1.0); BLOOD UREA NITROGEN 37 mg/dL (7-18); CALCIUM 7.7 MG/DL (8.5-10.1); CARBON DIOXIDE 35 MMOL/L (21-32); CHLORIDE 103 MMOL/L (98-107); PHOSPHORUS 4.4 MG/DL (2.5-4.9); POTASSIUM 3.7 MMOL/L (3.5-5.1); SODIUM 142 MMOL/L (136-145)
[2019-12-04 05:31] LABS: WHITE BLOOD COUNT 22.1 K/UL (4.8-10.8)
[2019-12-04] MEDS: NovoLOG Insulin Flexpen SUBQ SCH ×4 (06:16→20:45)
[2019-12-04 08:00] VITALS: BP 104/62
[2019-12-04] MEDS: Lactulose 20gm/30ml UDC ORAL SCH ×3 (09:05→17:45)
[2019-12-04] MEDS: Docusate 100mg cap ORAL SCH ×3 (09:05→17:45)
[2019-12-04] MEDS: Renvela 800mg Pkt ORAL SCH ×3 (09:05→17:47)
[2019-12-04] MEDS: Thiamine 100mg tab ORAL SCH (09:05)
--- NOTE | 2019-12-04 09:42 | General Progress Note ---
Assessment/Plan Assessment/Plan: 1. Acute renal failure. 2. Leukocytosis. 3. History of alcohol abuse. 4. Profound microcytic anemia. 5. Prior history of possible psychiatric disorder. 6. Elevated lipase. 7. Mild transaminitis. 8. Pelvic lymphadenopathy. 9. obesity 10. DVT s/p IVC filter placement 11. PNA 12. vaginal bleed fu labs on oral diet stable H&H vag bleed>> improving speech eval appreciated HD per nephrology abx pend tunel cath placement Subjective ROS Limited/Unobtainable: No Allergies: Coded Allergies: No Known Allergies (Unverified , 11/24/19) Subjective more alert Objective Last 24 Hour Vital Signs Date Time Temp Pulse Resp B/P (MAP) Pulse Ox O2 Delivery O2 Flow Rate FiO2 12/04/19 08:00 Venturi Mask 14.0 12/04/19 08:00 15.0 100 12/04/19 08:00 97.9 98 25 104/62 (76) 100 12/04/19 07:01 100 Non-Rebreather 15.0 100 12/04/19 04:00 15.0 100 12/04/19 04:00 98.1 100 24 103/56 (72) 100 12/04/19 04:00 Venturi Mask 14.0 12/04/19 03:30 100 12/04/19 00:00 98.0 98 24 122/68 (86) 100 12/04/19 00:00 Venturi Mask 14.0 12/03/19 23:33 99 12/03/19 20:14 96 Venturi Mask 14.0 55 12/03/19 20:00 15.0 100 12/03/19 20:00 97.2 98 24 126/66 (86) 94 12/03/19 20:00 Venturi Mask 14.0 12/03/19 19:02 99 12/03/19 17:20 95 28 115/65 (82) 98 12/03/19 16:47 98.2 105 19 133/72 (92) 100 12/03/19 16:42 98.2 101 18 129/73 (91) 100 12/03/19 16:37 98.2 101 18 128/69 (88) 100 12/03/19 16:22 104 18 15.0 12/03/19 16:00 Venturi Mask 14.0 12/03/19 16:00 Venturi Mask 14.0 12/03/19 16:00 98.2 97 30 114/61 (78) 96 12/03/19 16:00 102 12/03/19 16:00 14.0 55 12/03/19 14:36 95 28 117/69 (85) 98 12/03/19 12:00 14.0 55 12/03/19 12:00 97.9 102 30 112/59 (76) 98 12/03/19 12:00 103 12/03/19 11:51 Venturi Mask 14.0 Intake and Output 12/03/19 12/04/19 19:00 07:00 Intake Total 200 ml Output Total 1000 ml 0 ml Balance -800 ml 0 ml Intake Oral 200 ml Output Urine Total 1000 ml Hemodialysis UF 0 ml # Bowel Movements 3 3 Laboratory Tests 12/03/19 11:21: POC Whole Blood Glucose 160H 12/03/19 12:10: White Blood Count 27.1*H, Red Blood Count 3.03L, Hemoglobin 8.2L, Hematocrit 26.2L, Mean Corpuscular Volume 87, Mean Corpuscular Hemoglobin 27.0, Mean Corpuscular Hemoglobin Concent 31.1L, Red Cell Distribution Width 24.8H, Platelet Count 58L, Mean Platelet Volume 7.5, Neutrophils (%) (Auto) , Lymphocytes (%) (Auto) , Monocytes (%) (Auto) , Eosinophils (%) (Auto) , Basophils (%) (Auto) , Differential Total Cells Counted 100, Neutrophils % ( Manual) 92H, Lymphocytes % (Manual) 2L, Monocytes % (Manual) 4, Eosinophils % ( Manual) 1, Basophils % (Manual) 0, Band Neutrophils 1, Platelet Estimate DecreasedL, Platelet Morphology Normal, Hypochromasia 2+, Anisocytosis 3+ 12/03/19 17:44: POC Whole Blood Glucose 148H 12/03/19 20:53: POC Whole Blood Glucose 152H 12/04/19 02:50: White Blood Count 22.1*H, Red Blood Count 2.84L, Hemoglobin 7.7L, Hematocrit 24.9L, Mean Corpuscular Volume 88, Mean Corpuscular Hemoglobin 27.3, Mean Corpuscular Hemoglobin Concent 31.1L, Red Cell Distribution Width 24.0H, Platelet Count 56L, Mean Platelet Volume 7.5, Neutrophils (%) (Auto) , Lymphocytes (%) (Auto) , Monocytes (%) (Auto) , Eosinophils (%) (Auto) , Basophils (%) (Auto) , Neutrophils % (Manual) [Pending], Lymphocytes % (Manual) [Pending], Platelet Estimate [Pending], Platelet Morphology [Pending], Sodium Level 142, Potassium Level 3.7, Chloride Level 103, Carbon Dioxide Level 35H, Anion Gap 4L, Blood Urea Nitrogen 37H, Creatinine 4.0H, Estimat Glomerular Filtration Rate 11.1, Glucose Level 143H, Calcium Level 7.7L, Phosphorus Level 4.4, Magnesium Level 2.2, Total Bilirubin 0.3, Aspartate Amino Transf (AST/SGOT ) 29, Alanine Aminotransferase (ALT/SGPT) 7L, Alkaline Phosphatase 126H, C- Reactive Protein, Quantitative 25.4H, Pro-B-Type Natriuretic Peptide 4821H, Total Protein 5.3L, Albumin 1.3L, Globulin 4.0, Albumin/Globulin Ratio 0.3L, Random Vancomycin Level 15.8 12/04/19 06:14: POC Whole Blood Glucose 122H Height (Feet): 5 Height (Inches): 4.00 Weight (Pounds): 234 General Appearance: alert EENT: normal ENT inspection Neck: supple Cardiovascular: normal rate Respiratory/Chest: decreased breath sounds Abdomen: hypoactive bowel sounds Extremities: non-tender Ministerio Davis MD Dec 04, 2019 09:42
[2019-12-04] MEDS ORDERED: Vancomycin 1 GM in NS 275 ML IVPB SCH (10:00)
--- NOTE | 2019-12-04 10:27 | Pulmonology Progress Note ---
Carlita Brewster SOCIAL SERVICE LIAISON 12/04/19 1027: Subjective ROS Limited/Unobtainable: No Allergies: Coded Allergies: No Known Allergies (Unverified , 11/24/19) Subjective on 100% NRM, episode of desat last night no fevers, leucocytosis slowly trending down still some SOB, no CP + gen fatigue, weakness still small amount of vaginal bleeding Hgb down to 7.7 CXR 12/02 -> Slightly increased patchy opacities/consolidations in right greater than left lungs. Small pleural effusions are not excluded. 11/30 s/p removal of clotted R femoral HD catheter and placement of the new temporary one via R femoral vein by gen surgeon on the bedside 12/02 placmeent of tunneled HD cathter Objective Last 24 Hour Vital Signs Date Time Temp Pulse Resp B/P (MAP) Pulse Ox O2 Delivery O2 Flow Rate FiO2 12/04/19 08:00 100 12/04/19 08:00 Venturi Mask 14.0 12/04/19 08:00 15.0 100 12/04/19 08:00 97.9 98 25 104/62 (76) 100 12/04/19 07:01 100 Non-Rebreather 15.0 100 12/04/19 04:00 15.0 100 12/04/19 04:00 98.1 100 24 103/56 (72) 100 12/04/19 04:00 Venturi Mask 14.0 12/04/19 03:30 100 12/04/19 00:00 98.0 98 24 122/68 (86) 100 12/04/19 00:00 Venturi Mask 14.0 12/03/19 23:33 99 12/03/19 20:14 96 Venturi Mask 14.0 55 12/03/19 20:00 15.0 100 12/03/19 20:00 97.2 98 24 126/66 (86) 94 12/03/19 20:00 Venturi Mask 14.0 12/03/19 19:02 99 12/03/19 17:20 95 28 115/65 (82) 98 12/03/19 16:47 98.2 105 19 133/72 (92) 100 12/03/19 16:42 98.2 101 18 129/73 (91) 100 12/03/19 16:37 98.2 101 18 128/69 (88) 100 12/03/19 16:22 104 18 15.0 12/03/19 16:00 Venturi Mask 14.0 12/03/19 16:00 Venturi Mask 14.0 12/03/19 16:00 98.2 97 30 114/61 (78) 96 12/03/19 16:00 102 12/03/19 16:00 14.0 55 12/03/19 14:36 95 28 117/69 (85) 98 12/03/19 12:00 14.0 55 12/03/19 12:00 97.9 102 30 112/59 (76) 98 12/03/19 12:00 103 12/03/19 11:51 Venturi Mask 14.0 Intake and Output 12/03/19 12/04/19 19:00 07:00 Intake Total 200 ml Output Total 1000 ml 0 ml Balance -800 ml 0 ml Intake Oral 200 ml Output Urine Total 1000 ml Hemodialysis UF 0 ml # Bowel Movements 3 3 Objective General Appearance: [place]ian speaking, in NAD, calm, obese female Lines, tubes and drains: peripheral, also CL via R femoral ->HD catheter HEENT: normocephalic, atraumatic, anicteric, mucous membranes moist, 100% NRM Neck: non-tender, supple Respiratory/Chest: no accessory muscle use, few crackles at bases Cardiovascular/Chest: normal peripheral pulses, normal rate, regular rhythm Abdomen: normal bowel sounds, soft . mild distention and obese, non tender Extremities: normal range of motion, non-tender, no calf tenderness, +1 edema BLE Neurologic: no motor/sensory deficits, alert, responsive but somewhat confused Musculoskeletal: normal muscle bulk Microbiology Date/Time Source Procedure Growth Status 12/01/19 12:05 Blood Blood Culture - Preliminary NO GROWTH AFTER 48 HOURS Resulted 12/01/19 11:55 Blood Blood Culture - Preliminary NO GROWTH AFTER 48 HOURS Resulted Laboratory Tests 12/03/19 11:21: POC Whole Blood Glucose 160H 12/03/19 12:10: White Blood Count 27.1*H, Red Blood Count 3.03L, Hemoglobin 8.2L, Hematocrit 26.2L, Mean Corpuscular Volume 87, Mean Corpuscular Hemoglobin 27.0, Mean Corpuscular Hemoglobin Concent 31.1L, Red Cell Distribution Width 24.8H, Platelet Count 58L, Mean Platelet Volume 7.5, Neutrophils (%) (Auto) , Lymphocytes (%) (Auto) , Monocytes (%) (Auto) , Eosinophils (%) (Auto) , Basophils (%) (Auto) , Differential Total Cells Counted 100, Neutrophils % ( Manual) 92H, Lymphocytes % (Manual) 2L, Monocytes % (Manual) 4, Eosinophils % ( Manual) 1, Basophils % (Manual) 0, Band Neutrophils 1, Platelet Estimate DecreasedL, Platelet Morphology Normal, Hypochromasia 2+, Anisocytosis 3+ 12/03/19 17:44: POC Whole Blood Glucose 148H 12/03/19 20:53: POC Whole Blood Glucose 152H 12/04/19 02:50: White Blood Count 22.1*H, Red Blood Count 2.84L, Hemoglobin 7.7L, Hematocrit 24.9L, Mean Corpuscular Volume 88, Mean Corpuscular Hemoglobin 27.3, Mean Corpuscular Hemoglobin Concent 31.1L, Red Cell Distribution Width 24.0H, Platelet Count 56L, Mean Platelet Volume 7.5, Neutrophils (%) (Auto) , Lymphocytes (%) (Auto) , Monocytes (%) (Auto) , Eosinophils (%) (Auto) , Basophils (%) (Auto) , Differential Total Cells Counted 100, Neutrophils % ( Manual) 85H, Lymphocytes % (Manual) 7L, Monocytes % (Manual) 8, Eosinophils % ( Manual) 0, Basophils % (Manual) 0, Band Neutrophils 0, Platelet Estimate DecreasedL, Platelet Morphology Normal, Polychromasia 1+, Hypochromasia 1+, Anisocytosis 3+, Sodium Level 142, Potassium Level 3.7, Chloride Level 103, Carbon Dioxide Level 35H, Anion Gap 4L, Blood Urea Nitrogen 37H, Creatinine 4.0H , Estimat Glomerular Filtration Rate 11.1, Glucose Level 143H, Calcium Level 7.7L, Phosphorus Level 4.4, Magnesium Level 2.2, Total Bilirubin 0.3, Aspartate Amino Transf (AST/SGOT) 29, Alanine Aminotransferase (ALT/SGPT) 7L, Alkaline Phosphatase 126H, C-Reactive Protein, Quantitative 25.4H, Pro-B-Type Natriuretic Peptide 4821H, Total Protein 5.3L, Albumin 1.3L, Globulin 4.0, Albumin/Globulin Ratio 0.3L, Random Vancomycin Level 15.8 12/04/19 06:14: POC Whole Blood Glucose 122H Current Medications Medications (Trade) Dose Ordered Sig/Brina Route PRN Reason Start Time Stop Time Status Last Admin Dose Admin Acetaminophen (Tylenol) 650 mg Q8H PRN NG Mild Pain (Pain Scale 1-3) 11/27/19 08:30 12/27/19 08:29 Chlorhexidine Gluconate (Shonna-Hex 2%) 1 applic DAILY@2000 TOPIC 11/26/19 20:00 02/24/20 19:59 12/03/19 20:49 Dextrose (Dextrose 50%) 25 ml Q30M PRN IV Hypoglycemia 12/02/19 23:00 03/01/20 22:59 Dextrose (Dextrose 50%) 50 ml Q30M PRN IV Hypoglycemia 12/02/19 23:00 03/01/20 22:59 Docusate Sodium (Colace) 100 mg THREE TIMES A DAY ORAL 11/28/19 18:00 12/28/19 17:59 12/04/19 09:05 Epoetin Zay (Epoetin Zay(ESRD on dialysis)) 2,000 unit TUE-TUE-TUE SUBQ 12/03/19 21:00 03/02/20 20:59 12/03/19 20:49 Epoetin Zay (Epoetin Zay(ESRD on dialysis)) 8,000 unit TUE- SUBQ 12/03/19 21:00 03/02/20 20:59 12/03/19 20:49 Insulin Aspart (NovoLOG) BEFORE MEALS AND HS SUBQ 12/03/19 06:30 03/02/20 06:29 12/03/19 20:55 Lactulose (Cephulac) 20 gm THREE TIMES A DAY ORAL 12/03/19 13:00 01/02/20 12:59 12/04/19 09:05 Morphine Sulfate (Morphine Sulfate) 1 mg Q8H PRN IVP Breakthrough Pain 12/01/19 18:30 12/08/19 18:29 Pantoprazole (Protonix) 40 mg EVERY 12 HOURS ORAL 11/28/19 21:00 12/28/19 20:59 12/04/19 09:05 Polyethylene Glycol (Miralax) 17 gm BEDTIME ORAL 11/27/19 21:00 12/27/19 20:59 12/03/19 20:51 Sevelamer Carbonate (Renvela) 2,400 mg THREE TIMES A DAY ORAL 12/03/19 09:00 02/26/20 17:59 12/04/19 09:05 Thiamine HCl (Vitamin B1) 100 mg DAILY ORAL 11/29/19 09:00 12/29/19 08:59 12/04/19 09:05 Vancomycin HCl (Vanco pharmacy to dose) 1 ea DAILY PRN MISC Per rx protocol 11/30/19 11:30 12/30/19 11:29 Vancomycin HCl 1 gm/Sodium Chloride 275 ml @ 183.708 mls/hr ONCE IVPB 12/04/19 10:00 12/04/19 11:00 12/04/19 09:06 Assessment/Plan Assessment/Plan ASSESSMENT Sepsis Acute hypoxemic respiratory failure - Acute toxic metabolic encephalopathy ( multifactorial due to ARF, sepsis)- improving Acute renal failure , requiring start of HD MRSA bilateral PNA Acute DVT LLE common femoral to proximal superficial veins , r/o RE-NGT Possible UTI Hyperkalemia Severe pulmonary HTN Anemia Severe postmenopausal bleeding , with pelvic LAD; ? malignancy Elevated lipase, probably pancreatitis Pelvic LAD Anasarca History of EtOH abuse Possible psychiatric disorder PLAN OF CARE LEOBARDO now back on O2 via NRM CXR 11/29 w/pit much changes : Bilateral alveolar airspace disease unchanged right greater than left. CXR 12/02 -> Slightly increased patchy opacities/consolidations in right greater than left lungs. Small pleural effusions are not excluded. desat probably due to PNA , some fluid overload and DVT SCX + MRSA hx of recent resp illness fup with CXR titrate Fio2 to keep sat above 90% pulm toilet abx per ID recs-> Zosyn completed ; now on Vanco persistent leukocytosis with slow trend down , no fevers BCX 11/30 NGTD ID cleared for insertion of permanent HD catheter CTA chest with evidence of PNA initial SOB and resp distress were most likely due to fluid overload 2 to acute renal failure, and now acute DVT , r/o PE -> NGT Venous Duplex BLE + acute DVT LEFT COMMON FEMORAL TO PROXIMAL SUPERFICIAL FEMORAL VEINs. unable to start a/coagulation given Hgb 7.3 stat VQ scan 11/25 with intermediate probability for pulmonary embolism. s/p IVC filter 11/25 CTA chest -> no PE + BL infiltrates and RLL consolidation +mediastinal adenopathy concern for malignancy and elevated WBC ? 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 UTI UCX 11/25 NGT SCX 11/25 + MRSA UCX 11/28 NGT TB spot pending further management of ARF and hyper K as per respiratory director - bicarb stabilized s/p HD via R fem temp HD catheter, placed by surgeon creat trending down monitor volumes s/p 12/02 permanent HD catheter placement ECHO with pEF 65% and RVSP of 58 c/w severe pulm HTN cardiac monitoring-SR lipase trended down to normal hep panel NGT HIV nonreactive abd US, given enlarged lymph nodes-> fatty liver with a small septated cyst. Gallstones. The spleen, left kidney, CBD, pancreas ,aorta and cava not well defined. lipase and AST trending down CT head -no acute IC pathology pelvic US noted episode of large postmenopausal bleeding 11/28 GRAIN UNLOADER eval appreciated not a candidate for surgical interventions as this time needs hysteroscopy, D&C and endometrium ablation , will need medical stabilization and clearance prior to surgery GRAIN UNLOADER was unable to start Provera given acute DVT at this time medically optimize, monitor closely, check counts thank you for consult Reece Peters MD 12/04/19 1733: Subjective Allergies: Coded Allergies: No Known Allergies (Unverified , 11/24/19) Assessment/Plan Assessment/Plan Patient seen and examined with SOCIAL SERVICE LIAISON. Agree with above A&P as it reflects our joint deliberations. Continued hypoxemia with improving leukocytosis on abx. CXR consistent with pulmonary edema. Dr. Garcia to attempt more aggressive fluid removal with dialysis. Carlita Brewster SOCIAL SERVICE LIAISON Dec 04, 2019 10:27 Reece Peters MD Dec 04, 2019 17:33
--- NOTE | 2019-12-04 11:43 | Hematology/Onc Progress Note ---
Assessment/Plan Assessment/Plan Assessment and Recs # Left LE DVT and Probable PE s/p 11/25 IVC filter placement --> v/q scan: Overall findings suggesting intermediate probability for pulmonary embolism. More sensitive evaluation can be made with CT angiogram of the chest as clinically indicated. --> v. duplex: STUDY POSITIVE FOR DVT IN THE LEFT COMMON FEMORAL TO PROXIMAL SUPERFICIAL FEMORAL VEIN. LEFT COMMON FEMORAL TO PROXIMAL SUPERFICIAL FEMORAL --> unable to start anticoag given severe anemia, etoh use --> outpatient followup # Anemia of chronic disease due to underlying chronic medical issues, multifactorial v Gi bleed --> Anemia workup has been ordered, rule out gi bleed --> No evidence of hemolysis is noted, peripheral smear has been reviewed. --> Hgb goal >7. Transfuse prn. --> Epogen or iron both have been started for esrd --> Medications have been reviewed --> low threshold for gi evaluation in case has occult + --> recommend etoh cessation --> hgb 8.3-->8-->7.9->8-->7.7->8.2--7.7 --> does have mild vaginal bleeding during adm # Leukocytosis due to sepsis uti and cap -> abx as per id zosyn->vanc --> wbc 31-->24-->23-->16-->27-->33-_>27 --> imaging as needed # Thrombocytopenia likely due to infection --> trend 90 # Acute respiratory failure with hypoxia --> on bipap # ESRD --> per renal on hd # Sepsis with bilateral pna # CAP (community acquired pneumonia) # Hyperkalemia # Encephalopathy acute # Morbid obesity # History of EtOH abuse # Possible psychiatric disorder # Dvt ppx scds The timing of this note does not necessarily reflect the time of the patient was seen. Greatly appreciate consultation. Subjective HEENT: Denies: no symptoms, eye pain, blurred vision, tearing, double vision, ear pain, ear discharge, nose pain, nose congestion, throat pain, throat swelling, mouth pain, mouth swelling, other Cardiovascular: Denies: no symptoms, chest pain, edema, irregular heart rate, lightheadedness, palpitations, syncope, other Respiratory: Denies: no symptoms, cough, shortness of breath, SOB with excertion, SOB at rest, sputum, wheezing, other Gastrointestinal/Abdominal: Denies: no symptoms, abdomen distended, abdominal pain, black stools, tarry stools, blood in stool, constipated, diarrhea, difficulty swallowing, nausea, poor appetite, poor fluid intake, rectal bleeding , vomiting, other Genitourinary: Denies: no symptoms, burning, discharge, frequency, flank pain, hematuria, incontinence, pain, urgency, other Neurologic/Psychiatric: Denies: no symptoms, anxiety, depressed, emotional problems, headache, numbness, paresthesia, pre-existing deficit, seizure, tingling, tremors, weakness, other Endocrine: Denies: no symptoms, excessive sweating, flushing, intolerance to cold, intolerance to heat, increased hunger, increased thirst, increased urine, unexplained weight gain, unexplained weight loss, other Allergies: Coded Allergies: No Known Allergies (Unverified , 11/24/19) Subjective 11/27 more arousable on venturi mask, started on iv iron, plt lower 11/28 meds noted, no bleeding, doyle rn, on venturi mask, labs noted 11/29 small amount of bleeding, no night sweats, doyle rn, hgb 7.7 12/01 labs reviewed, on vnac, cbc is noted, no bleeding 12/02 cleared for potentail hd placement today, temp, per id cleared 12/03 meds reviewed, no events, hgb lower 7.7, wbc elev 22 Objective Objective Current Medications Medications (Trade) Dose Ordered Sig/Brina Route PRN Reason Start Time Stop Time Status Last Admin Dose Admin Acetaminophen (Tylenol) 650 mg Q8H PRN NG Mild Pain (Pain Scale 1-3) 11/27/19 08:30 12/27/19 08:29 Chlorhexidine Gluconate (Shonna-Hex 2%) 1 applic DAILY@1999 TOPIC 11/26/19 20:00 02/24/20 19:59 12/03/19 20:49 Dextrose (Dextrose 50%) 25 ml Q30M PRN IV Hypoglycemia 12/02/19 23:00 03/01/20 22:59 Dextrose (Dextrose 50%) 50 ml Q30M PRN IV Hypoglycemia 12/02/19 23:00 03/01/20 22:59 Docusate Sodium (Colace) 100 mg THREE TIMES A DAY ORAL 11/28/19 18:00 12/28/19 17:59 8/4/20 09:05 Epoetin Zay (Epoetin Zay(ESRD on dialysis)) 2,000 unit SUBQ 12/03/19 21:00 03/02/20 20:59 12/03/19 20:49 Epoetin Zay (Epoetin Zay(ESRD on dialysis)) 8,000 unit SUBQ 12/03/19 21:00 03/02/20 20:59 12/03/19 20:49 Insulin Aspart (NovoLOG) BEFORE MEALS AND HS SUBQ 12/03/19 06:30 03/02/20 06:29 12/03/19 20:55 Lactulose (Cephulac) 20 gm THREE TIMES A DAY ORAL 12/03/19 13:00 01/02/20 12:59 12/04/19 09:05 Morphine Sulfate (Morphine Sulfate) 1 mg Q8H PRN IVP Breakthrough Pain 12/01/19 18:30 12/08/19 18:29 Pantoprazole (Protonix) 40 mg EVERY 12 HOURS ORAL 11/28/19 21:00 12/28/19 20:59 12/04/19 09:05 Polyethylene Glycol (Miralax) 17 gm BEDTIME ORAL 11/27/19 21:00 12/27/19 20:59 12/03/19 20:51 Sevelamer Carbonate (Renvela) 2,400 mg THREE TIMES A DAY ORAL 12/03/19 09:00 02/26/20 17:59 12/04/19 09:05 Thiamine HCl (Vitamin B1) 100 mg DAILY ORAL 11/29/19 09:00 12/29/19 08:59 12/04/19 09:05 Vancomycin HCl ([facility] pharmacy to dose) 1 ea DAILY PRN MISC Per rx protocol 11/30/19 11:30 12/30/19 11:29 Last 24 Hour Vital Signs Date Time Temp Pulse Resp B/P (MAP) Pulse Ox O2 Delivery O2 Flow Rate FiO2 12/04/19 08:00 100 12/04/19 08:00 Venturi Mask 14.0 12/04/19 08:00 15.0 100 12/04/19 08:00 97.9 98 25 104/62 (76) 100 12/04/19 07:01 100 Non-Rebreather 15.0 100 12/04/19 04:00 15.0 100 12/04/19 04:00 98.1 100 24 103/56 (72) 100 12/04/19 04:00 Venturi Mask 14.0 12/04/19 03:30 100 12/04/19 00:00 98.0 98 24 122/68 (86) 100 12/04/19 00:00 Venturi Mask 14.0 12/03/19 23:33 99 12/03/19 20:14 96 Venturi Mask 14.0 55 12/03/19 20:00 15.0 100 12/03/19 20:00 97.2 98 24 126/66 (86) 94 12/03/19 20:00 Venturi Mask 14.0 12/03/19 19:02 99 12/03/19 17:20 95 28 115/65 (82) 98 12/03/19 16:47 98.2 105 19 133/72 (92) 100 12/03/19 16:42 98.2 101 18 129/73 (91) 100 12/03/19 16:37 98.2 101 18 128/69 (88) 100 12/03/19 16:22 104 18 15.0 12/03/19 16:00 Venturi Mask 14.0 12/03/19 16:00 Venturi Mask 14.0 12/03/19 16:00 98.2 97 30 114/61 (78) 96 12/03/19 16:00 102 12/03/19 16:00 14.0 55 12/03/19 14:36 95 28 117/69 (85) 98 12/03/19 12:00 14.0 55 12/03/19 12:00 97.9 102 30 112/59 (76) 98 12/03/19 12:00 103 12/03/19 11:51 Venturi Mask 14.0 12/03/19 08:00 98.5 103 30 106/61 (76) 93 12/03/19 08:00 101 12/03/19 08:00 Venturi Mask 14.0 12/03/19 08:00 14.0 55 12/03/19 07:00 94 Venturi Mask 14.0 55 12/03/19 04:00 14.0 55 12/03/19 04:00 Venturi Mask 8.0 12/03/19 04:00 98.2 104 36 117/60 (79) 97 12/03/19 04:00 104 12/03/19 00:00 100 12/03/19 00:00 Venturi Mask 8.0 12/03/19 00:00 98.6 100 24 111/61 (78) 92 12/02/19 20:00 98.8 94 24 115/64 (81) 94 12/02/19 20:00 Venturi Mask 8.0 12/02/19 20:00 94 12/02/19 20:00 10.0 45 12/02/19 19:10 94 Venturi Mask 14.0 55 12/02/19 17:00 91 12/02/19 16:00 10.0 45 12/02/19 16:00 Venturi Mask 10.0 12/02/19 16:00 98.4 93 21 116/52 (73) 94 12/02/19 12:00 10.0 45 12/02/19 12:00 96 12/02/19 12:00 Venturi Mask 10.0 12/02/19 12:00 97.7 96 23 124/65 (84) 93 Intake and Output 12/03/19 12/04/19 19:00 07:00 Intake Total 200 ml Output Total 1000 ml 0 ml Balance -800 ml 0 ml Intake Oral 200 ml Output Urine Total 1000 ml Hemodialysis UF 0 ml # Bowel Movements 3 3 Labs Test 12/01/19 11:55 12/01/19 12:09 12/01/19 18:42 12/01/19 20:10 White Blood Count 39.7 K/UL (4.8-10.8) 41.7 K/UL (4.8-10.8) Red Blood Count 3.33 M/UL (4.20-5.40) 3.09 M/UL (4.20-5.40) Hemoglobin 8.9 G/DL (12.0-16.0) 8.2 G/DL (12.0-16.0) Hematocrit 28.2 % (37.0-47.0) 25.7 % (37.0-47.0) Mean Corpuscular Volume 85 FL (80-99) 83 FL (80-99) Mean Corpuscular Hemoglobin 26.7 PG (27.0-31.0) 26.6 PG (27.0-31.0) Mean Corpuscular Hemoglobin Concent 31.6 G/DL (32.0-36.0) 31.9 G/DL (32.0-36.0) Red Cell Distribution Width 22.4 % (11.6-14.8) 23.9 % (11.6-14.8) Platelet Count 68 K/UL (150-450) 57 K/UL (150-450) Mean Platelet Volume 8.1 FL (6.5-10.1) 8.5 FL (6.5-10.1) Neutrophils (%) (Auto) % (45.0-75.0) % (45.0-75.0) Lymphocytes (%) (Auto) % (20.0-45.0) % (20.0-45.0) Monocytes (%) (Auto) % (1.0-10.0) % (1.0-10.0) Eosinophils (%) (Auto) % (0.0-3.0) % (0.0-3.0) Basophils (%) (Auto) % (0.0-2.0) % (0.0-2.0) Differential Total Cells Counted 100 100 Neutrophils % (Manual) 96 % (45-75) 91 % (45-75) Lymphocytes % (Manual) 2 % (20-45) 3 % (20-45) Monocytes % (Manual) 2 % (1-10) 5 % (1-10) Eosinophils % (Manual) 0 % (0-3) 0 % (0-3) Basophils % (Manual) 0 % (0-2) 1 % (0-2) Band Neutrophils 0 % (0-8) 0 % (0-8) Platelet Estimate Decreased Decreased Platelet Morphology Normal Normal Hypochromasia 2+ 2+ Anisocytosis 3+ 2+ POC Whole Blood Glucose 95 MG/DL (74-106) 86 MG/DL (74-106) Smudge Cells Occasional Test 12/02/19 03:22 12/02/19 11:49 12/02/19 12:34 12/02/19 17:08 White Blood Count 33.0 K/UL (4.8-10.8) 29.6 K/UL (4.8-10.8) Red Blood Count 3.02 M/UL (4.20-5.40) 3.12 M/UL (4.20-5.40) Hemoglobin 8.0 G/DL (12.0-16.0) 8.5 G/DL (12.0-16.0) Hematocrit 25.4 % (37.0-47.0) 26.5 % (37.0-47.0) Mean Corpuscular Volume 84 FL (80-99) 85 FL (80-99) Mean Corpuscular Hemoglobin 26.6 PG (27.0-31.0) 27.4 PG (27.0-31.0) Mean Corpuscular Hemoglobin Concent 31.6 G/DL (32.0-36.0) 32.2 G/DL (32.0-36.0) Red Cell Distribution Width 22.4 % (11.6-14.8) 23.3 % (11.6-14.8) Platelet Count 62 K/UL (150-450) 68 K/UL (150-450) Mean Platelet Volume 7.7 FL (6.5-10.1) 8.0 FL (6.5-10.1) Neutrophils (%) (Auto) % (45.0-75.0) % (45.0-75.0) Lymphocytes (%) (Auto) % (20.0-45.0) % (20.0-45.0) Monocytes (%) (Auto) % (1.0-10.0) % (1.0-10.0) Eosinophils (%) (Auto) % (0.0-3.0) % (0.0-3.0) Basophils (%) (Auto) % (0.0-2.0) % (0.0-2.0) Differential Total Cells Counted 100 100 Neutrophils % (Manual) 93 % (45-75) 94 % (45-75) Lymphocytes % (Manual) 4 % (20-45) 3 % (20-45) Monocytes % (Manual) 3 % (1-10) 3 % (1-10) Eosinophils % (Manual) 0 % (0-3) 0 % (0-3) Basophils % (Manual) 0 % (0-2) 0 % (0-2) Band Neutrophils 0 % (0-8) 0 % (0-8) Platelet Estimate Decreased Adequate Platelet Morphology Normal Normal Hypochromasia 2+ 2+ Anisocytosis 3+ 3+ Sodium Level 141 MMOL/L (136-145) Potassium Level 4.4 MMOL/L (3.5-5.1) Chloride Level 101 MMOL/L (98-107) Carbon Dioxide Level 25 MMOL/L (21-32) Anion Gap 16 mmol/L (5-15) Blood Urea Nitrogen 62 mg/dL (7-18) Creatinine 6.7 MG/DL (0.55-1.30) Estimat Glomerular Filtration Rate 6.1 mL/min (>60) Glucose Level 65 MG/DL (74-106) Uric Acid 7.8 MG/DL (2.6-7.2) Calcium Level 7.5 MG/DL (8.5-10.1) Phosphorus Level 7.3 MG/DL (2.5-4.9) Magnesium Level 2.3 MG/DL (1.8-2.4) Total Bilirubin 0.5 MG/DL (0.2-1.0) Aspartate Amino Transf (AST/SGOT) 32 U/L (15-37) Alanine Aminotransferase (ALT/SGPT) 18 U/L (12-78) Alkaline Phosphatase 106 U/L (46-116) C-Reactive Protein, Quantitative 29.6 mg/dL (0.00-0.90) Pro-B-Type Natriuretic Peptide 2907 pg/mL (0-125) Total Protein 5.0 G/DL (6.4-8.2) Albumin 1.2 G/DL (3.4-5.0) Globulin 3.8 g/dL Albumin/Globulin Ratio 0.3 (1.0-2.7) Random Vancomycin Level 14.8 ug/mL POC Whole Blood Glucose 167 MG/DL (74-106) 239 MG/DL (74-106) Test 12/03/19 03:39 12/03/19 11:21 12/03/19 12:10 12/03/19 17:44 White Blood Count 28.4 K/UL (4.8-10.8) 27.1 K/UL (4.8-10.8) Red Blood Count 3.03 M/UL (4.20-5.40) 3.03 M/UL (4.20-5.40) Hemoglobin 8.3 G/DL (12.0-16.0) 8.2 G/DL (12.0-16.0) Hematocrit 25.9 % (37.0-47.0) 26.2 % (37.0-47.0) Mean Corpuscular Volume 85 FL (80-99) 87 FL (80-99) Mean Corpuscular Hemoglobin 27.5 PG (27.0-31.0) 27.0 PG (27.0-31.0) Mean Corpuscular Hemoglobin Concent 32.2 G/DL (32.0-36.0) 31.1 G/DL (32.0-36.0) Red Cell Distribution Width 23.5 % (11.6-14.8) 24.8 % (11.6-14.8) Platelet Count 69 K/UL (150-450) 58 K/UL (150-450) Mean Platelet Volume 7.4 FL (6.5-10.1) 7.5 FL (6.5-10.1) Neutrophils (%) (Auto) % (45.0-75.0) % (45.0-75.0) Lymphocytes (%) (Auto) % (20.0-45.0) % (20.0-45.0) Monocytes (%) (Auto) % (1.0-10.0) % (1.0-10.0) Eosinophils (%) (Auto) % (0.0-3.0) % (0.0-3.0) Basophils (%) (Auto) % (0.0-2.0) % (0.0-2.0) Differential Total Cells Counted 100 100 Neutrophils % (Manual) 86 % (45-75) 92 % (45-75) Lymphocytes % (Manual) 5 % (20-45) 2 % (20-45) Monocytes % (Manual) 7 % (1-10) 4 % (1-10) Eosinophils % (Manual) 2 % (0-3) 1 % (0-3) Basophils % (Manual) 0 % (0-2) 0 % (0-2) Band Neutrophils 0 % (0-8) 1 % (0-8) Platelet Estimate Decreased Decreased Platelet Morphology Normal Normal Hypochromasia 2+ 2+ Anisocytosis 3+ 3+ Spherocytes 2+ Prothrombin Time 12.0 SEC (9.30-11.50) Prothromb Time International Ratio 1.1 (0.9-1.1) Activated Partial Thromboplast Time 32 SEC (23-33) Sodium Level 143 MMOL/L (136-145) Potassium Level 4.2 MMOL/L (3.5-5.1) Chloride Level 103 MMOL/L (98-107) Carbon Dioxide Level 29 MMOL/L (21-32) Anion Gap 12 mmol/L (5-15) Blood Urea Nitrogen 60 mg/dL (7-18) Creatinine 6.1 MG/DL (0.55-1.30) Estimat Glomerular Filtration Rate 6.8 mL/min (>60) Glucose Level 142 MG/DL (74-106) Calcium Level 7.3 MG/DL (8.5-10.1) Phosphorus Level 6.2 MG/DL (2.5-4.9) Magnesium Level 2.3 MG/DL (1.8-2.4) Total Bilirubin 0.5 MG/DL (0.2-1.0) Aspartate Amino Transf (AST/SGOT) 31 U/L (15-37) Alanine Aminotransferase (ALT/SGPT) 23 U/L (12-78) Alkaline Phosphatase 126 U/L (46-116) Ammonia 41 umol/L (11-32) Troponin I 0.000 ng/mL (0.000-0.056) C-Reactive Protein, Quantitative 30.1 mg/dL (0.00-0.90) Pro-B-Type Natriuretic Peptide 5323 pg/mL (0-125) Total Protein 5.4 G/DL (6.4-8.2) Albumin 1.3 G/DL (3.4-5.0) Globulin 4.1 g/dL Albumin/Globulin Ratio 0.3 (1.0-2.7) POC Whole Blood Glucose 160 MG/DL (74-106) 148 MG/DL (74-106) Test 12/03/19 20:53 12/04/19 02:50 12/04/19 06:14 POC Whole Blood Glucose 152 MG/DL (74-106) 122 MG/DL (74-106) White Blood Count 22.1 K/UL (4.8-10.8) Red Blood Count 2.84 M/UL (4.20-5.40) Hemoglobin 7.7 G/DL (12.0-16.0) Hematocrit 24.9 % (37.0-47.0) Mean Corpuscular Volume 88 FL (80-99) Mean Corpuscular Hemoglobin 27.3 PG (27.0-31.0) Mean Corpuscular Hemoglobin Concent 31.1 G/DL (32.0-36.0) Red Cell Distribution Width 24.0 % (11.6-14.8) Platelet Count 56 K/UL (150-450) Mean Platelet Volume 7.5 FL (6.5-10.1) Neutrophils (%) (Auto) % (45.0-75.0) Lymphocytes (%) (Auto) % (20.0-45.0) Monocytes (%) (Auto) % (1.0-10.0) Eosinophils (%) (Auto) % (0.0-3.0) Basophils (%) (Auto) % (0.0-2.0) Differential Total Cells Counted 100 Neutrophils % (Manual) 85 % (45-75) Lymphocytes % (Manual) 7 % (20-45) Monocytes % (Manual) 8 % (1-10) Eosinophils % (Manual) 0 % (0-3) Basophils % (Manual) 0 % (0-2) Band Neutrophils 0 % (0-8) Platelet Estimate Decreased Platelet Morphology Normal Polychromasia 1+ Hypochromasia 1+ Anisocytosis 3+ Sodium Level 142 MMOL/L (136-145) Potassium Level 3.7 MMOL/L (3.5-5.1) Chloride Level 103 MMOL/L (98-107) Carbon Dioxide Level 35 MMOL/L (21-32) Anion Gap 4 mmol/L (5-15) Blood Urea Nitrogen 37 mg/dL (7-18) Creatinine 4.0 MG/DL (0.55-1.30) Estimat Glomerular Filtration Rate 11.1 mL/min (>60) Glucose Level 143 MG/DL (74-106) Calcium Level 7.7 MG/DL (8.5-10.1) Phosphorus Level 4.4 MG/DL (2.5-4.9) Magnesium Level 2.2 MG/DL (1.8-2.4) Total Bilirubin 0.3 MG/DL (0.2-1.0) Aspartate Amino Transf (AST/SGOT) 29 U/L (15-37) Alanine Aminotransferase (ALT/SGPT) 7 U/L (12-78) Alkaline Phosphatase 126 U/L (46-116) C-Reactive Protein, Quantitative 25.4 mg/dL (0.00-0.90) Pro-B-Type Natriuretic Peptide 4821 pg/mL (0-125) Total Protein 5.3 G/DL (6.4-8.2) Albumin 1.3 G/DL (3.4-5.0) Globulin 4.0 g/dL Albumin/Globulin Ratio 0.3 (1.0-2.7) Random Vancomycin Level 15.8 ug/mL Height (Feet): 5 Height (Inches): 4.00 Weight (Pounds): 234 Objective Vitals: reviewed General: NAD HEENT: nc, at Neck: supple Chest: clear breath sounds bilaterally Cardiovascular: RRR, no s3, s4 Abdomen: soft, nontender, nd Extremities: no cce, normal range of motion Neuro: alert and oriented Holland Miranda MD Dec 04, 2019 11:43
[2019-12-04 12:00] VITALS: BP 107/47
--- NOTE | 2019-12-04 13:16 | Infectious Diseases Prog Note ---
Assessment/Plan ASSESSMENT: 69yo F with: 1. Respiratory distress.- SP Bipap- sp NC> VM 40%, 8L 11/26> 4l NC 11/27> VM 40% 8L 11/28 > VM 55% 14L 12/02< 15L 100% 2. B/l Pneumonia- COVID neg x3 -12/02 CXR: Slightly increased patchy opacities/consolidations in right greater than left lungs. Small pleural effusions are not excluded. -11/24 sp cx MRSA -11/23 Rapid COVID PCR neg x2; 11/24 rapid COVID PCR neg -11/23 CT chest: Bilateral pneumonia, with greater confluence in the posterior right lower lobe. 3. Severe Leukocytosis, acute reacted to distress versus sepsis. -up to 40 - likely multifactorial due to PE/DVT, PNA, pancreatitis, acute renal failure, vaginal bleeding- now trending down --11/29, 11/30 Bcx NTD -pelvic US: LIMITED TRANSABDOMINAL STUDY ONLY WITH RELATIVELY POOR DELINEATION OF THE REPRODUCTIVE ORGANS. HETEROGENEOUS UTERUS WITH APPARENT FIBROID CHANGE. RIGHT OVARY NOT VISUALIZED AND ENDOMETRIAL STRIPE ALSO POORLY SEEN LEFT OVARY IS ONLY MARGINALLY SEEN AND GROSSLY UNREMARKABLE. -Abd US: STUDY LIMITED DUE TO BODY HABITUS AND BOWEL GAS. FATTY LIVER WITH A SMALL SEPTATED CYST. GALLSTONES.THE SPLEEN, LEFT KIDNEY, COMMON BILE DUCT AND PANCREAS WELL AORTA AND CAVA ARE NOT WELL DEFINED. -CT abd/p : Enlarged pelvic lymph nodes could reflect reactive changes from cellulitis in the setting of generalized bony wall edema, or other acute inflammatory changes but neoplasm such as lymphomas not excluded. Correlate clinically. Ultrasound of the pelvis could be considered to help distinguish patient's ovaries from presumed pelvic adenopathy.Mild bilateral hydronephrosis , with a Kaminski catheter in the urinary bladder. Correlate with bladder catheter function. 4. Sepsis.. -11/28 u/a wbc 10-15, nit neg, leuk +3; ucx neg -11/25 ucx Neg -11/23 BCx Neg 5.Vaginal bleeding 6 L LE DVT and Probable PE -CTA chest: NO CT EVIDENCE OF PULMONARY EMBOLISM TO THE EXTENT VISUALIZED.BILATERAL INFILTRATES AND RIGHT LOWER LOBE CONSOLIDATION. THE CONSOLIDATION DOESOBSCURE SOME PERIPHERAL SUBSEGMENTAL BRANCHES OF THE RIGHT LOWER LOBE AND SMALLPERIPHERAL EMBOLI IN THIS AREA CANNOT BE EXCLUDED.MEDIASTINAL ADENOPATHY.ANASARCA. -11/25 SP IVC filter placement -v/q scan: Overall findings suggesting intermediate probability for pulmonary embolism. More sensitive evaluation can be made with CT angiogram of the chest as clinically indicated. -v. duplex: STUDY POSITIVE FOR DVT IN THE LEFT COMMON FEMORAL TO PROXIMAL SUPERFICIAL FEMORAL VEIN. 7. Severe acute renal failure; improving- likely underlying CKD -on HD now -12/02 sp perm cath insertion 8. Acute pancreatitis EtOh abuse PLAN: Cont vancomycin #5 (abx d #03/15) for MRSA pna 11/29 SP Zosyn #7 11/29 SP linezolid #5 (changed given thrombocytopenia) 11/23 SP Ceftriaxone x1, Azythromycin x1, IV Vancomycin x1 Trend WBC daily, improving 2. Monitor blood culture. 3. Monitor urine culture. 4. COVID neg x3 (2 were sent on same day) 5. Monitor lipase. 6. f/u flow cytometry 7. sp cx Discussed with RN Thank you for this consult. We will continue to follow. Subjective Allergies: Coded Allergies: No Known Allergies (Unverified , 11/24/19) afebrile on VM 15L, FIo2 100% wbc improving Bcx NTD sp perm cath insertion yesterday Objective Last 24 Hour Vital Signs Date Time Temp Pulse Resp B/P (MAP) Pulse Ox O2 Delivery O2 Flow Rate FiO2 12/04/19 12:00 Venturi Mask 14.0 12/04/19 12:00 15.0 100 12/04/19 08:00 100 12/04/19 08:00 Venturi Mask 14.0 12/04/19 08:00 15.0 100 12/04/19 08:00 97.9 98 25 104/62 (76) 100 12/04/19 07:01 100 Non-Rebreather 15.0 100 12/04/19 04:00 15.0 100 12/04/19 04:00 98.1 100 24 103/56 (72) 100 12/04/19 04:00 Venturi Mask 14.0 12/04/19 03:30 100 12/04/19 00:00 98.0 98 24 122/68 (86) 100 12/04/19 00:00 Venturi Mask 14.0 12/03/19 23:33 99 12/03/19 20:14 96 Venturi Mask 14.0 55 12/03/19 20:00 15.0 100 12/03/19 20:00 97.2 98 24 126/66 (86) 94 12/03/19 20:00 Venturi Mask 14.0 12/03/19 19:02 99 12/03/19 17:20 95 28 115/65 (82) 98 12/03/19 16:47 98.2 105 19 133/72 (92) 100 12/03/19 16:42 98.2 101 18 129/73 (91) 100 12/03/19 16:37 98.2 101 18 128/69 (88) 100 12/03/19 16:22 104 18 15.0 12/03/19 16:00 Venturi Mask 14.0 12/03/19 16:00 Venturi Mask 14.0 12/03/19 16:00 98.2 97 30 114/61 (78) 96 12/03/19 16:00 102 12/03/19 16:00 14.0 55 12/03/19 14:36 95 28 117/69 (85) 98 Height (Feet): 5 Height (Inches): 4.00 Weight (Pounds): 234 HEENT: No pale conjunctivae. No icterus. NECK: No lymphadenopathy. CHEST: Coarse breathing sounds. HEART: S1-S2. ABDOMEN: Obese. EXTREMITIES: No cyanosis at this time. NEUROLOGIC: Awake. Laboratory Tests Test 12/03/19 17:44 12/03/19 20:53 12/04/19 02:50 12/04/19 06:14 POC Whole Blood Glucose 148 MG/DL (74-106) H 152 MG/DL (74-106) H 122 MG/DL (74-106) H White Blood Count 22.1 K/UL (4.8-10.8) *H Red Blood Count 2.84 M/UL (4.20-5.40) L Hemoglobin 7.7 G/DL (12.0-16.0) L Hematocrit 24.9 % (37.0-47.0) L Mean Corpuscular Volume 88 FL (80-99) Mean Corpuscular Hemoglobin 27.3 PG (27.0-31.0) Mean Corpuscular Hemoglobin Concent 31.1 G/DL (32.0-36.0) L Red Cell Distribution Width 24.0 % (11.6-14.8) H Platelet Count 56 K/UL (150-450) L Mean Platelet Volume 7.5 FL (6.5-10.1) Neutrophils (%) (Auto) % (45.0-75.0) Lymphocytes (%) (Auto) % (20.0-45.0) Monocytes (%) (Auto) % (1.0-10.0) Eosinophils (%) (Auto) % (0.0-3.0) Basophils (%) (Auto) % (0.0-2.0) Differential Total Cells Counted 100 Neutrophils % (Manual) 85 % (45-75) H Lymphocytes % (Manual) 7 % (20-45) L Monocytes % (Manual) 8 % (1-10) Eosinophils % (Manual) 0 % (0-3) Basophils % (Manual) 0 % (0-2) Band Neutrophils 0 % (0-8) Platelet Estimate Decreased L Platelet Morphology Normal Polychromasia 1+ Hypochromasia 1+ Anisocytosis 3+ Sodium Level 142 MMOL/L (136-145) Potassium Level 3.7 MMOL/L (3.5-5.1) Chloride Level 103 MMOL/L (98-107) Carbon Dioxide Level 35 MMOL/L (21-32) H Anion Gap 4 mmol/L (5-15) L Blood Urea Nitrogen 37 mg/dL (7-18) H Creatinine 4.0 MG/DL (0.55-1.30) H Estimat Glomerular Filtration Rate 11.1 mL/min (>60) Glucose Level 143 MG/DL (74-106) H Calcium Level 7.7 MG/DL (8.5-10.1) L Phosphorus Level 4.4 MG/DL (2.5-4.9) Magnesium Level 2.2 MG/DL (1.8-2.4) Total Bilirubin 0.3 MG/DL (0.2-1.0) Aspartate Amino Transf (AST/SGOT) 29 U/L (15-37) Alanine Aminotransferase (ALT/SGPT) 7 U/L (12-78) L Alkaline Phosphatase 126 U/L (46-116) H C-Reactive Protein, Quantitative 25.4 mg/dL (0.00-0.90) H Pro-B-Type Natriuretic Peptide 4821 pg/mL (0-125) H Total Protein 5.3 G/DL (6.4-8.2) L Albumin 1.3 G/DL (3.4-5.0) L Globulin 4.0 g/dL Albumin/Globulin Ratio 0.3 (1.0-2.7) L Random Vancomycin Level 15.8 ug/mL Test 12/04/19 12:11 POC Whole Blood Glucose Pending Current Medications Medications (Trade) Dose Ordered Sig/Brina Route PRN Reason Start Time Stop Time Status Last Admin Dose Admin Acetaminophen (Tylenol) 650 mg Q8H PRN NG Mild Pain (Pain Scale 1-3) 11/27/19 08:30 12/27/19 08:29 Chlorhexidine Gluconate (Shonna-Hex 2%) 1 applic DAILY@1999 TOPIC 11/26/19 20:00 02/24/20 19:59 12/03/19 20:49 Dextrose (Dextrose 50%) 25 ml Q30M PRN IV Hypoglycemia 12/02/19 23:00 03/01/20 22:59 Dextrose (Dextrose 50%) 50 ml Q30M PRN IV Hypoglycemia 12/02/19 23:00 03/01/20 22:59 Docusate Sodium (Colace) 100 mg THREE TIMES A DAY ORAL 11/28/19 18:00 12/28/19 17:59 12/04/19 12:24 Epoetin Zay (Epoetin Zay(ESRD on dialysis)) 2,000 unit SUBQ 12/03/19 21:00 03/02/20 20:59 12/03/19 20:49 Epoetin Zay (Epoetin Zay(ESRD on dialysis)) 8,000 unit SUBQ 12/03/19 21:00 03/02/20 20:59 12/03/19 20:49 Insulin Aspart (NovoLOG) BEFORE MEALS AND HS SUBQ 12/03/19 06:30 03/02/20 06:29 12/04/19 12:16 Lactulose (Cephulac) 20 gm THREE TIMES A DAY ORAL 12/03/19 13:00 01/02/20 12:59 12/04/19 12:24 Morphine Sulfate (Morphine Sulfate) 1 mg Q8H PRN IVP Breakthrough Pain 12/01/19 18:30 12/08/19 18:29 Pantoprazole (Protonix) 40 mg EVERY 12 HOURS ORAL 11/28/19 21:00 12/28/19 20:59 12/04/19 09:05 Polyethylene Glycol (Miralax) 17 gm BEDTIME ORAL 11/27/19 21:00 12/27/19 20:59 12/03/19 20:51 Sevelamer Carbonate (Renvela) 2,400 mg THREE TIMES A DAY ORAL 12/03/19 09:00 02/26/20 17:59 12/04/19 12:20 Thiamine HCl (Vitamin B1) 100 mg DAILY ORAL 11/29/19 09:00 12/29/19 08:59 12/04/19 09:05 Vancomycin HCl ([facility] pharmacy to dose) 1 ea DAILY PRN MISC Per rx protocol 11/30/19 11:30 12/30/19 11:29 Britt Jimenez M.D. Dec 04, 2019 13:16
--- NOTE | 2019-12-04 14:10 | Surgery Progress Note ---
Surgery Progress Note Subjective Procedure Performed right femoral temporary Hemodialysis catheter insertion Additional Comments leukocytosis anemia plt trending down hold on catheter removal until plt improved. defer to heme Objective Last 24 Hour Vital Signs Date Time Temp Pulse Resp B/P (MAP) Pulse Ox O2 Delivery O2 Flow Rate FiO2 12/04/19 12:00 Venturi Mask 14.0 12/04/19 12:00 15.0 100 12/04/19 12:00 98.6 102 29 107/47 (67) 100 12/04/19 08:00 100 12/04/19 08:00 Venturi Mask 14.0 12/04/19 08:00 15.0 100 12/04/19 08:00 97.9 98 25 104/62 (76) 100 12/04/19 07:01 100 Non-Rebreather 15.0 100 12/04/19 04:00 15.0 100 12/04/19 04:00 98.1 100 24 103/56 (72) 100 12/04/19 04:00 Venturi Mask 14.0 12/04/19 03:30 100 12/04/19 00:00 98.0 98 24 122/68 (86) 100 12/04/19 00:00 Venturi Mask 14.0 12/03/19 23:33 99 12/03/19 20:14 96 Venturi Mask 14.0 55 12/03/19 20:00 15.0 100 12/03/19 20:00 97.2 98 24 126/66 (86) 94 12/03/19 20:00 Venturi Mask 14.0 12/03/19 19:02 99 12/03/19 17:20 95 28 115/65 (82) 98 12/03/19 16:47 98.2 105 19 133/72 (92) 100 12/03/19 16:42 98.2 101 18 129/73 (91) 100 12/03/19 16:37 98.2 101 18 128/69 (88) 100 12/03/19 16:22 104 18 15.0 12/03/19 16:00 Venturi Mask 14.0 12/03/19 16:00 Venturi Mask 14.0 12/03/19 16:00 98.2 97 30 114/61 (78) 96 12/03/19 16:00 102 12/03/19 16:00 14.0 55 12/03/19 14:36 95 28 117/69 (85 98 I&O Intake and Output 12/03/19 12/04/19 19:00 07:00 Intake Total 200 ml Output Total 1000 ml 0 ml Balance -800 ml 0 ml Intake Oral 200 ml Output Urine Total 1000 ml Hemodialysis UF 0 ml # Bowel Movements 3 3 Dressing: saturated Wound: other Cardiovascular: RSR Respiratory: decreased breath sounds Abdomen: soft, non-tender, present bowel sounds Extremities: edema, no cyanosis Laboratory Tests Test 12/03/19 17:44 12/03/19 20:53 12/04/19 02:50 12/04/19 06:14 POC Whole Blood Glucose 148 MG/DL (74-106) H 152 MG/DL (74-106) H 122 MG/DL (74-106) H White Blood Count 22.1 K/UL (4.8-10.8) *H Red Blood Count 2.84 M/UL (4.20-5.40) L Hemoglobin 7.7 G/DL (12.0-16.0) L Hematocrit 24.9 % (37.0-47.0) L Mean Corpuscular Volume 88 FL (80-99) Mean Corpuscular Hemoglobin 27.3 PG (27.0-31.0) Mean Corpuscular Hemoglobin Concent 31.1 G/DL (32.0-36.0) L Red Cell Distribution Width 24.0 % (11.6-14.8) H Platelet Count 56 K/UL (150-450) L Mean Platelet Volume 7.5 FL (6.5-10.1) Neutrophils (%) (Auto) % (45.0-75.0) Lymphocytes (%) (Auto) % (20.0-45.0) Monocytes (%) (Auto) % (1.0-10.0) Eosinophils (%) (Auto) % (0.0-3.0) Basophils (%) (Auto) % (0.0-2.0) Differential Total Cells Counted 100 Neutrophils % (Manual) 85 % (45-75) H Lymphocytes % (Manual) 7 % (20-45) L Monocytes % (Manual) 8 % (1-10) Eosinophils % (Manual) 0 % (0-3) Basophils % (Manual) 0 % (0-2) Band Neutrophils 0 % (0-8) Platelet Estimate Decreased L Platelet Morphology Normal Polychromasia 1+ Hypochromasia 1+ Anisocytosis 3+ Sodium Level 142 MMOL/L (136-145) Potassium Level 3.7 MMOL/L (3.5-5.1) Chloride Level 103 MMOL/L (98-107) Carbon Dioxide Level 35 MMOL/L (21-32) H Anion Gap 4 mmol/L (5-15) L Blood Urea Nitrogen 37 mg/dL (7-18) H Creatinine 4.0 MG/DL (0.55-1.30) H Estimat Glomerular Filtration Rate 11.1 mL/min (>60) Glucose Level 143 MG/DL (74-106) H Calcium Level 7.7 MG/DL (8.5-10.1) L Phosphorus Level 4.4 MG/DL (2.5-4.9) Magnesium Level 2.2 MG/DL (1.8-2.4) Total Bilirubin 0.3 MG/DL (0.2-1.0) Aspartate Amino Transf (AST/SGOT) 29 U/L (15-37) Alanine Aminotransferase (ALT/SGPT) 7 U/L (12-78) L Alkaline Phosphatase 126 U/L (46-116) H C-Reactive Protein, Quantitative 25.4 mg/dL (0.00-0.90) H Pro-B-Type Natriuretic Peptide 4821 pg/mL (0-125) H Total Protein 5.3 G/DL (6.4-8.2) L Albumin 1.3 G/DL (3.4-5.0) L Globulin 4.0 g/dL Albumin/Globulin Ratio 0.3 (1.0-2.7) L Random Vancomycin Level 15.8 ug/mL Test 12/04/19 12:11 POC Whole Blood Glucose Pending Plan Problems: (1) Anemia (2) Encephalopathy acute (3) Acute respiratory failure with hypoxia (4) Hyperkalemia (5) Sepsis Assessment & Plan: Leukocytosis anemia hyperkalemia abnormal labs HD catheter placed received dialysis and slowly potassium improved. Plan for repeat dialysis ordered. IV antibiotics per infectious disease Patient is alert awake but confused. Slowly improving No hematoma or bleeding identified Site looks clean We will continue with HD on a sure if renal function will improve may need permacath CT reviewed edema noted lymph nodes noted likely reactive Thank you for let me participate patient's care with follow with recommendations s/p filter placement stable acute blood loss anemia vaginal bleeding coags heme input transfuse prbc trend h/h will monitor for bleeding thank you HD line change 11/30 plane line removal once plt improved ABDOMEN: Liver: Unremarkable. Gallbladder and bile ducts: Unremarkable. No calcified stones. No ductal dilation. Pancreas: Unremarkable. No ductal dilation. Spleen: Unremarkable. No splenomegaly. Adrenals: Unremarkable. No mass. Kidneys and ureters: Bilateral low-grade hydronephrosis. No radiopaque stones in the urinary tract identified except for nonobstructing 3 mm stone in the inferior pole left kidney. Stomach and bowel: Scattered colonic diverticuli. No obstruction. No mucosal thickening. PELVIS: Appendix: No findings to suggest acute appendicitis. Bladder: The urinary bladder is decompressed by an indwelling Kaminski catheter No stones. Reproductive: Unremarkable as visualized. ABDOMEN and PELVIS: Intraperitoneal space: Unremarkable. No free air. No significant fluid collection. Bones/joints: No acute fracture. No dislocation. Soft tissues: Anasarca. Vasculature: Unremarkable. No abdominal aortic aneurysm. Lymph nodes: Enlarged left superficial inguinal lymph node measuring 2 cm short axis There are bilateral enlarged external iliac lymph nodes, measuring 2.9 cm x 5.1 cm on the left and 2.7 x 2.0 cm on the right. Other findings: Beam hardening from patient's abdominal girth degrades detail. IMPRESSION: 1. Enlarged pelvic lymph nodes could reflect reactive changes from cellulitis in the setting of generalized bony wall edema, or other acute inflammatory changes but neoplasm such as lymphomas not excluded. Correlate clinically. Ultrasound of the pelvis could be considered to help distinguish patient's ovaries from presumed pelvic adenopathy. 2. Mild bilateral hydronephrosis, with a Kaminski catheter in the urinary bladder. Correlate with bladder catheter function. DAILY ESTIMATED NEEDS: Needs based on obesity, ARF + HD/ 67kg abw 22-25 kcals/kg 3006-4414 total kcals 1.2-1.8 w/ HD g protein/kg 81-120 g total protein Fluids per MD mL/kg . total fluid mLs NUTRITION DIAGNOSIS: Altered nutrition related lab values R/T ARF, pre-diabetes as evidenced by elev BUN (157 -> 77 trend down), elev creat (142 -> 7.5), now on HD, elev phos (8.1), elev mag (2.5-> wnl). A1C of 6.0 w/ elev BGs (154 173 146-> now improved). CURRENT DIET:RENAL, soft easy chew w/ NTL PO DIET RECOMMENDATIONS: RENAL, CCHO LOW/ texture per FILLING OPERATOR ADDITIONAL RECOMMENDATIONS: * Calibrated bedscale wt for accurate CBW- w/ added p200 mattress + pump * Phos binders w/ meals- now on Renvela TID * Monitor renal fxn and continuity of HD- creat (14.2 -> 7.5) * Monitor BGs, need for hypoglycemics * Monitor PO intake and tolerance closely * Nephrovite x 1 as supplement . (6) ARF (acute renal failure) (7) CAP (community acquired pneumonia) (8) Serum lipase elevation (9) Obesity (BMI 30-39.9) Angelo Naik Dec 04, 2019 14:10
--- NOTE | 2019-12-04 14:12 | General Progress Note ---
Assessment/Plan Assessment/Plan: S, O: pt is awake , seems comfortable, seen and examined in step down unit. in mild sob. on Venturi mask PHYSICAL EXAMINATION:HEAD AND NECK: Atraumatic and normocephalic. CHEST: Diffuse bronchial breathing sounds.HEART: S1 and S2. Regular rate and rhythm. ABDOMEN: Soft. No organomegaly. Protuberant. No tenderness. MUSCULOSKELETAL: Right inguinal HD- access noted, No gross lateralized motor deficit. It is limited examination as the patient is not cooperative. b/l le edema and tenderness NEUROLOGIC: The patient is delirious. DIAGNOSTIC AND LABORATORY DATA: Imaging, Chest -CT dated November 26 Labs, dated December 03 reviewed ASSESSMENT: 1. Severe sepsis. 2. PNA- Bilateral 3. Hypoxemic respiratory failure. 3. Acute Anemia 5. Acute Menometrorrhagia 6. Hyperkalemia. 4. End-stage renal disease. 5. CHF, likely diagnosis. 6. Abnormal blood sugar. 7. Acute on chronic Microcytic anemia. 8. GI and DVT prophylaxis. 9. LE DVT- Bilateral PLAN OF CARE: contra indication for anticoagulation . D/W Hemonch regarding IVC notes form ID, Nephrology reviewed S/P IVC filter placement. Given the importance of diagnosis of PE in the risk stratification decision for fpc ATC, will proceed with Chest CT-Angio No additional ATC at this time, pending stool occult test I called the daughter Piper and updated her about over medical cnd on November 27 around 2 PM D/w Dr Pedersen, Rn Charge. Agree for current conservative mgt. Not medically stable for surgical or aggressive methods in controlling the Menometrorrhagia favorable response to PRBC-transfusion S/P insertion of the new temp- HD access in the groin, once clear by ID will proceed for Tunneled HD-access placement Worsening of PNA, complication !? will D/w pulmonary Subjective Allergies: Coded Allergies: No Known Allergies (Unverified , 11/24/19) Objective Last 24 Hour Vital Signs Date Time Temp Pulse Resp B/P (MAP) Pulse Ox O2 Delivery O2 Flow Rate FiO2 12/04/19 12:00 Venturi Mask 14.0 12/04/19 12:00 15.0 100 12/04/19 12:00 98.6 102 29 107/47 (67) 100 12/04/19 08:00 100 8/4/20 08:00 Venturi Mask 14.0 12/04/19 08:00 15.0 100 12/04/19 08:00 97.9 98 25 104/62 (76) 100 12/04/19 07:01 100 Non-Rebreather 15.0 100 12/04/19 04:00 15.0 100 12/04/19 04:00 98.1 100 24 103/56 (72) 100 12/04/19 04:00 Venturi Mask 14.0 12/04/19 03:30 100 12/04/19 00:00 98.0 98 24 122/68 (86) 100 12/04/19 00:00 Venturi Mask 14.0 12/03/19 23:33 99 12/03/19 20:14 96 Venturi Mask 14.0 55 12/03/19 20:00 15.0 100 12/03/19 20:00 97.2 98 24 126/66 (86) 94 12/03/19 20:00 Venturi Mask 14.0 12/03/19 19:02 99 12/03/19 17:20 95 28 115/65 (82) 98 12/03/19 16:47 98.2 105 19 133/72 (92) 100 12/03/19 16:42 98.2 101 18 129/73 (91) 100 12/03/19 16:37 98.2 101 18 128/69 (88) 100 12/03/19 16:22 104 18 15.0 12/03/19 16:00 Venturi Mask 14.0 12/03/19 16:00 Venturi Mask 14.0 12/03/19 16:00 98.2 97 30 114/61 (78) 96 12/03/19 16:00 102 12/03/19 16:00 14.0 55 12/03/19 14:36 95 28 117/69 (85) 98 Intake and Output 12/03/19 12/04/19 19:00 07:00 Intake Total 200 ml Output Total 1000 ml 0 ml Balance -800 ml 0 ml Intake Oral 200 ml Output Urine Total 1000 ml Hemodialysis UF 0 ml # Bowel Movements 3 3 Laboratory Tests 12/03/19 17:44: POC Whole Blood Glucose 148H 12/03/19 20:53: POC Whole Blood Glucose 152H 12/04/19 02:50: White Blood Count 22.1*H, Red Blood Count 2.84L, Hemoglobin 7.7L, Hematocrit 24.9L, Mean Corpuscular Volume 88, Mean Corpuscular Hemoglobin 27.3, Mean Corpuscular Hemoglobin Concent 31.1L, Red Cell Distribution Width 24.0H, Platelet Count 56L, Mean Platelet Volume 7.5, Neutrophils (%) (Auto) , Lymphocytes (%) (Auto) , Monocytes (%) (Auto) , Eosinophils (%) (Auto) , Basophils (%) (Auto) , Differential Total Cells Counted 100, Neutrophils % ( Manual) 85H, Lymphocytes % (Manual) 7L, Monocytes % (Manual) 8, Eosinophils % ( Manual) 0, Basophils % (Manual) 0, Band Neutrophils 0, Platelet Estimate DecreasedL, Platelet Morphology Normal, Polychromasia 1+, Hypochromasia 1+, Anisocytosis 3+, Sodium Level 142, Potassium Level 3.7, Chloride Level 103, Carbon Dioxide Level 35H, Anion Gap 4L, Blood Urea Nitrogen 37H, Creatinine 4.0H , Estimat Glomerular Filtration Rate 11.1, Glucose Level 143H, Calcium Level 7.7L, Phosphorus Level 4.4, Magnesium Level 2.2, Total Bilirubin 0.3, Aspartate Amino Transf (AST/SGOT) 29, Alanine Aminotransferase (ALT/SGPT) 7L, Alkaline Phosphatase 126H, C-Reactive Protein, Quantitative 25.4H, Pro-B-Type Natriuretic Peptide 4821H, Total Protein 5.3L, Albumin 1.3L, Globulin 4.0, Albumin/Globulin Ratio 0.3L, Random Vancomycin Level 15.8 12/04/19 06:14: POC Whole Blood Glucose 122H 12/04/19 12:11: POC Whole Blood Glucose [Pending] Height (Feet): 5 Height (Inches): 4.00 Weight (Pounds): 234 Rebecca Schroeder MD Dec 04, 2019 14:12
--- NOTE | 2019-12-04 14:51 | Nephrology Progress Note ---
Assessment/Plan Problem List: (1) ARF (acute renal failure) (2) Sepsis (3) CAP (community acquired pneumonia) (4) Hyperkalemia (5) Encephalopathy acute (6) Anemia (7) Alcohol abuse Assessment: Long history as per daughter (8) Serum lipase elevation (9) Obesity (BMI 30-39.9) (10) Fatty liver Assessment Acute renal failure and hyperkalemia Most likely underlying chronic kidney disease Sepsis, pneumonia Toxic metabolic encephalopathy Severe anemia Morbid obesity Acute hypoxemic respiratory failure Elevated lipase possible pancreatitis Enlarged pelvic lymph nodes Anasarca History of EtOH abuse Possible psychiatric disorder Plan December 03: Dialyzed yesterday. Hemoglobin stable. IV iron started. Next dialysis December 04 or December 05 December 02: Due for dialysis today. Hemoglobin somewhat stable. Serum ammonia is somewhat elevated will start lactulose. Will attempt placement of permacath when cleared by ID. December 01: Last dialyzed yesterday. Patient confused. Labs reviewed. Hemoglobin stable. No more vaginal bleeding reported. Leukocytosis persists continue per consultants November 30: Patient received dialysis only 40 minutes yesterday as the dialysis catheter was clotted. Dialysis catheter was changed by general surgery today and she is going to receive dialysis again today. Labs reviewed. Medication reviewed. Patient's daughter Lynne in the room I had a long conversation with her. Continue per consultants. CHESS INSTRUCTOR Note: 69yo with severe acute postmenopausal bleeding in the setting of morbid obesity , ESRD, alcohol abuse, sepsis, and recent IVC filter placement for LE DVT. - DDx of bleeding includes underlying coagulopathy, unopposed estrogen, malignancy - US was not able to visualize uterine lining clearly - Transfuse blood products as indicated - - Patient is an extremely poor surgical candidate at this time given her SOB, active DVT, sepsis, ESRD, and alcoholic encephalopathy - Surgical management would be as a last resort only, and patient would need medical stabilization and clearance for hysteroscopy, D&C, and endometrial ablation - Other options would include possible uterine artery embolization, which would likely require urgent transfer to a higher level of care - I do not believe IR performs this procedure at [facility] [place] - Would consider Progesterone treatment with Provera, however patient has active DVT with IVC filter in place and per guidelines Provera is contraindicated with active DVT - Plan of care discussed with Dr. Schroeder - Please contact my office again with any additional concerns at [phone] November 29: Dialysis yesterday was not done due to massive vaginal bleed. Patient was transfused 2 units of packed RBCs. Patient due for placement of tunneled permacath. Will attempt dialysis today. Continue to transfuse as needed. Vaginal bleeding etiology to be worked up by specialist. November 28: Due for dialysis today. Leukocytosis persist. Plan for placement of a permacath when stable from ID standpoint of view. November 27: Plan for dialysis tomorrow. White BC is 20,000. Thiamine and Protonix was changed to p.o. Renvela added as phosphorus binder November 26: Due for dialysis today. Leukocytosis persists. Continue per consultants. November 25. Patient was dialyzed 2 days in a row. Will order dialysis tomorrow. Leukocytosis persists. Patient on antibiotics. November 24: Patient was dialyzed yesterday. Serum potassium now within normal range. ABG improved. Discussed with RN. IV changed. Dialysis ordered again today. IV thiamine started. Ativan for agitation ordered. Recheck labs tomorrow. Continue per consultants. Amphojel as phosphorus binder also started. Previously: Anemia work-up ordered IV Venofer, subcu Epogen ordered Continue to monitor renal parameters Per orders Subjective ROS Limited/Unobtainable: No Constitutional: Reports: malaise, weakness Objective Objective Last 24 Hour Vital Signs Date Time Temp Pulse Resp B/P (MAP) Pulse Ox O2 Delivery O2 Flow Rate FiO2 12/04/19 12:00 Venturi Mask 14.0 12/04/19 12:00 15.0 100 12/04/19 12:00 106 12/04/19 12:00 98.6 102 29 107/47 (67) 100 12/04/19 08:00 100 12/04/19 08:00 Venturi Mask 14.0 12/04/19 08:00 15.0 100 12/04/19 08:00 97.9 98 25 104/62 (76) 100 12/04/19 07:01 100 Non-Rebreather 15.0 100 12/04/19 04:00 15.0 100 12/04/19 04:00 98.1 100 24 103/56 (72) 100 12/04/19 04:00 Venturi Mask 14.0 12/04/19 03:30 100 12/04/19 00:00 98.0 98 24 122/68 (86) 100 12/04/19 00:00 Venturi Mask 14.0 12/03/19 23:33 99 12/03/19 20:14 96 Venturi Mask 14.0 55 12/03/19 20:00 15.0 100 12/03/19 20:00 97.2 98 24 126/66 (86) 94 12/03/19 20:00 Venturi Mask 14.0 12/03/19 19:02 99 12/03/19 17:20 95 28 115/65 (82) 98 12/03/19 16:47 98.2 105 19 133/72 (92) 100 12/03/19 16:42 98.2 101 18 129/73 (91) 100 12/03/19 16:37 98.2 101 18 128/69 (88) 100 12/03/19 16:22 104 18 15.0 12/03/19 16:00 Venturi Mask 14.0 12/03/19 16:00 Venturi Mask 14.0 12/03/19 16:00 98.2 97 30 114/61 (78) 96 12/03/19 16:00 102 12/03/19 16:00 14.0 55 Intake and Output 12/03/19 12/04/19 19:00 07:00 Intake Total 200 ml Output Total 1000 ml 0 ml Balance -800 ml 0 ml Intake Oral 200 ml Output Urine Total 1000 ml Hemodialysis UF 0 ml # Bowel Movements 3 3 Current Medications Medications (Trade) Dose Ordered Sig/Brina Route PRN Reason Start Time Stop Time Status Last Admin Dose Admin Acetaminophen (Tylenol) 650 mg Q8H PRN NG Mild Pain (Pain Scale 1-3) 11/27/19 08:30 12/27/19 08:29 Chlorhexidine Gluconate (Shonna-Hex 2%) 1 applic DAILY@1999 TOPIC 11/26/19 20:00 02/24/20 19:59 12/03/19 20:49 Dextrose (Dextrose 50%) 25 ml Q30M PRN IV Hypoglycemia 12/02/19 23:00 03/01/20 22:59 Dextrose (Dextrose 50%) 50 ml Q30M PRN IV Hypoglycemia 12/02/19 23:00 03/01/20 22:59 Docusate Sodium (Colace) 100 mg THREE TIMES A DAY ORAL 11/28/19 18:00 12/28/19 17:59 12/04/19 12:24 Epoetin Zay (Epoetin Zay(ESRD on dialysis)) 2,000 unit SUBQ 12/03/19 21:00 03/02/20 20:59 12/03/19 20:49 Epoetin Zay (Epoetin Zay(ESRD on dialysis)) 8,000 unit TUE- SUBQ 12/03/19 21:00 03/02/20 20:59 12/03/19 20:49 Insulin Aspart (NovoLOG) BEFORE MEALS AND HS SUBQ 12/03/19 06:30 03/02/20 06:29 12/04/19 12:16 Iron Sucrose 100 mg/Sodium Chloride 60 ml @ 240 mls/hr BEDTIME IV 12/04/19 21:00 12/08/19 21:14 Lactulose (Cephulac) 20 gm THREE TIMES A DAY ORAL 12/03/19 13:00 01/02/20 12:59 12/04/19 12:24 Morphine Sulfate (Morphine Sulfate) 1 mg Q8H PRN IVP Breakthrough Pain 12/01/19 18:30 12/08/19 18:29 Pantoprazole (Protonix) 40 mg EVERY 12 HOURS ORAL 11/28/19 21:00 12/28/19 20:59 12/04/19 09:05 Polyethylene Glycol (Miralax) 17 gm BEDTIME ORAL 11/27/19 21:00 12/27/19 20:59 12/03/19 20:51 Sevelamer Carbonate (Renvela) 2,400 mg THREE TIMES A DAY ORAL 12/03/19 09:00 02/26/20 17:59 12/04/19 12:20 Thiamine HCl (Vitamin B1) 100 mg DAILY ORAL 11/29/19 09:00 12/29/19 08:59 12/04/19 09:05 Vancomycin HCl (Vanco pharmacy to dose) 1 ea DAILY PRN MISC Per rx protocol 11/30/19 11:30 12/30/19 11:29 Laboratory Tests 12/03/19 17:44: POC Whole Blood Glucose 148H 12/03/19 20:53: POC Whole Blood Glucose 152H 12/04/19 02:50: White Blood Count 22.1*H, Red Blood Count 2.84L, Hemoglobin 7.7L, Hematocrit 24.9L, Mean Corpuscular Volume 88, Mean Corpuscular Hemoglobin 27.3, Mean Corpuscular Hemoglobin Concent 31.1L, Red Cell Distribution Width 24.0H, Platelet Count 56L, Mean Platelet Volume 7.5, Neutrophils (%) (Auto) , Lymphocytes (%) (Auto) , Monocytes (%) (Auto) , Eosinophils (%) (Auto) , Basophils (%) (Auto) , Differential Total Cells Counted 100, Neutrophils % ( Manual) 85H, Lymphocytes % (Manual) 7L, Monocytes % (Manual) 8, Eosinophils % ( Manual) 0, Basophils % (Manual) 0, Band Neutrophils 0, Platelet Estimate DecreasedL, Platelet Morphology Normal, Polychromasia 1+, Hypochromasia 1+, Anisocytosis 3+, Sodium Level 142, Potassium Level 3.7, Chloride Level 103, Carbon Dioxide Level 35H, Anion Gap 4L, Blood Urea Nitrogen 37H, Creatinine 4.0H , Estimat Glomerular Filtration Rate 11.1, Glucose Level 143H, Calcium Level 7.7L, Phosphorus Level 4.4, Magnesium Level 2.2, Total Bilirubin 0.3, Aspartate Amino Transf (AST/SGOT) 29, Alanine Aminotransferase (ALT/SGPT) 7L, Alkaline Phosphatase 126H, C-Reactive Protein, Quantitative 25.4H, Pro-B-Type Natriuretic Peptide 4821H, Total Protein 5.3L, Albumin 1.3L, Globulin 4.0, Albumin/Globulin Ratio 0.3L, Random Vancomycin Level 15.8 12/04/19 06:14: POC Whole Blood Glucose 122H 12/04/19 12:11: POC Whole Blood Glucose [Pending] Height (Feet): 5 Height (Inches): 4.00 Weight (Pounds): 234 General Appearance: no apparent distress, lethargic Cardiovascular: tachycardia Respiratory/Chest: decreased breath sounds Abdomen: distended Objective No other change Jean-Pierre Garcia MD Dec 04, 2019 14:51
[2019-12-04] MEDS ORDERED: Tubing IV Secondary IV ONE ×2 (15:41→19:23)
[2019-12-04 16:00] VITALS: BP 98/54
[2019-12-04] MEDS ORDERED: Iron Sucrose 200 MG in NS 110 ML IV SCH (16:00)
--- NOTE | 2019-12-04 18:04 | General Progress Note ---
Progress Note Progress Note REHAB F/U PROGRESS NOTE: SUBJECTIVE: VENTI MASK ON IV IRON ALERT AND AWAKE DENIES PAIN CHART AND MEDS REVIEWED PER PT >> Rolling * Maximum Assistance Supine to Sit * Maximum Assistance Bed Mobility Assistive Devices * Bed Rail Bed Mobility Comments * MAX A x 2P needed Sit to Stand * Unable (See Comment) Bed to Chair/Wheelchair * Unable (See Comment) REVIEW OF SYSTEMS: EYES: Denies diplopia. ENT: Dysphagia. CARDIOVASCULAR : No chest pain. PULMONARY: Shortness of breath and cough. GASTROINTESTINAL: No abdominal pain. GENITOURINARY: Vaginal bleed and acute kidney injury on hemodialysis. INTEGUMENTARY: Multiple ulcers. NEUROLOGIC: Cognitive memory impairment and generalized weakness. PHYSICAL EXAMINATION: VITAL SIGNS: PER CHART, NOTED. HEENT: No facial droop. NECK: Supple HEART: Regular. LUNGS: Diminished breath sounds of bilateral lung montanez. ABDOMEN: Soft, nontender, nondistended. EXTREMITIES: Edema bilateral lower limbs. SKIN: Multiple ulcers per wound care team. NEURO: Alert, awake, follows commands. She knows she is in the hospital, unable to recall the name of hospital, Movement of bilateral upper and lower limb at the level of 2 to 4/5. LABORATORY DATA: PER CHART, NOTED. ASSESSMENT: The patient is a 69-year-old female with. 1. Acute toxic metabolic encephalopathy. 2. Quadriplegia. 3. Acute kidney injury, now on hemodialysis. 4. Vaginal bleeding and severe anemia requiring blood transfusion. 5. Negative COVID-19 on two settings of 11/24/2019 and 11/25/2019 per Microbiology reports. 6. Bilateral pneumonia. 7. Positive deep venous thrombosis of left common femoral to proximal superficial femoral vein, status post IVC filter placement on 11/26/2019. 8. Debility and functional decline. 9. Gait abnormality. 10. Acute diastolic congestive heart failure. 11. Alcoholism. 12. Dyslipidemia. 13. Transaminitis. 14. Thrombocytopenia. 15. Leukocytosis. 16. Morbid obesity with body mass index of over 41. RECOMMENDATION: 1. Continue medical management per Medicine and surgery. 2. Skin care and wound care. 3. Fall precaution, pressure ulcer precaution, cardiac precaution, 4. aspiration precaution. 5. Nutritional support. 6. 24 hours nursing care. 7. Physical therapy for range of motion, transfer training, endurance, balance, and ambulation training with appropriate assistive device with cardiac precaution. 8. Occupational therapy for activities of daily living, equipment function, transfer training, upper extremity range of motion and strengthening exercise. 9. Speech therapy for cognition, memory, swallow, speech , language re- training. 10. Nursing for evaluation of her bowel and bladder, medication regimen, skin care prevention of pressure ulcer, patient and family education. 11. The patient eventually requires acute inpatient rehabilitation placement when the patient is medically stable and cleared. not ready for ARU at this time. STRICT FALL AND BLEEDING PRECAUTION. HEME-ONC F/U CARE. LEUKOCYTOSIS, LEXX >> TRENDING DOWN TOWARD NORMAL RANGE. Chester Eldridge MD Dec 04, 2019 18:04
[2019-12-04 20:00] VITALS: BP 106/58
[2019-12-04] MEDS: Dyna-Hex 2% Top Sol 2oz TOPIC SCH (20:16)
[2019-12-04] MEDS: Miralax 17gm pkt ORAL SCH (20:16)
[2019-12-04] MEDS ORDERED: Iron Sucrose 100 MG in NS 55 ML IV SCH (21:00)
--- NOTE | 2019-12-04 23:44 | Cardiology Progress Note ---
Assessment/Plan Assessment/Plan 1. Acute diastolic congestive heart failure, aggressive hemodialysis for decrease of preload. 2. Anemia of blood loss likely due to vaginal bleed. 3. Alcohol abuse. 4. Acute kidney injury. 5. Dyslipidemia with low HDL. 6. Sepsis with B/L PNA, COVID-19 negative. 7. Sinus tachycardia, possibly due to hypoxemia. Subjective Subjective Sinus tachycardia at rate of 118. On NRB mask, FIO2 of 100%. Objective Last 24 Hour Vital Signs Date Time Temp Pulse Resp B/P (MAP) Pulse Ox O2 Delivery O2 Flow Rate FiO2 12/04/19 20:00 118 12/04/19 20:00 15.0 100 12/04/19 20:00 Non-Rebreather 15.0 12/04/19 20:00 98.8 121 28 106/58 (74) 100 12/04/19 18:56 100 Non-Rebreather 15.0 100 12/04/19 16:05 115 12/04/19 16:04 Venturi Mask 14.0 12/04/19 16:04 15.0 100 12/04/19 16:00 98.1 114 28 98/54 (69) 100 12/04/19 12:00 Venturi Mask 14.0 12/04/19 12:00 15.0 100 12/04/19 12:00 106 12/04/19 12:00 98.6 102 29 107/47 (67) 100 12/04/19 08:00 100 12/04/19 08:00 Venturi Mask 14.0 12/04/19 08:00 15.0 100 12/04/19 08:00 97.9 98 25 104/62 (76) 100 12/04/19 07:01 100 Non-Rebreather 15.0 100 12/04/19 04:00 15.0 100 12/04/19 04:00 98.1 100 24 103/56 (72) 100 12/04/19 04:00 Venturi Mask 14.0 12/04/19 03:30 100 12/04/19 00:00 98.0 98 24 122/68 (86) 100 12/04/19 00:00 Venturi Mask 14.0 Intake and Output 12/03/19 12/04/19 19:00 07:00 Intake Total 200 ml Output Total 1000 ml 0 ml Balance -800 ml 0 ml Intake Oral 200 ml Output Urine Total 1000 ml Hemodialysis UF 0 ml # Bowel Movements 3 3 2D Echo: LVEF 65%, RVSP 58 mmHg, Grade I LVDD Laboratory Tests Test 12/04/19 02:50 12/04/19 06:14 12/04/19 12:11 12/04/19 16:49 White Blood Count 22.1 K/UL (4.8-10.8) *H Red Blood Count 2.84 M/UL (4.20-5.40) L Hemoglobin 7.7 G/DL (12.0-16.0) L Hematocrit 24.9 % (37.0-47.0) L Mean Corpuscular Volume 88 FL (80-99) Mean Corpuscular Hemoglobin 27.3 PG (27.0-31.0) Mean Corpuscular Hemoglobin Concent 31.1 G/DL (32.0-36.0) L Red Cell Distribution Width 24.0 % (11.6-14.8) H Platelet Count 56 K/UL (150-450) L Mean Platelet Volume 7.5 FL (6.5-10.1) Neutrophils (%) (Auto) % (45.0-75.0) Lymphocytes (%) (Auto) % (20.0-45.0) Monocytes (%) (Auto) % (1.0-10.0) Eosinophils (%) (Auto) % (0.0-3.0) Basophils (%) (Auto) % (0.0-2.0) Differential Total Cells Counted 100 Neutrophils % (Manual) 85 % (45-75) H Lymphocytes % (Manual) 7 % (20-45) L Monocytes % (Manual) 8 % (1-10) Eosinophils % (Manual) 0 % (0-3) Basophils % (Manual) 0 % (0-2) Band Neutrophils 0 % (0-8) Platelet Estimate Decreased L Platelet Morphology Normal Polychromasia 1+ Hypochromasia 1+ Anisocytosis 3+ Sodium Level 142 MMOL/L (136-145) Potassium Level 3.7 MMOL/L (3.5-5.1) Chloride Level 103 MMOL/L (98-107) Carbon Dioxide Level 35 MMOL/L (21-32) H Anion Gap 4 mmol/L (5-15) L Blood Urea Nitrogen 37 mg/dL (7-18) H Creatinine 4.0 MG/DL (0.55-1.30) H Estimat Glomerular Filtration Rate 11.1 mL/min (>60) Glucose Level 143 MG/DL (74-106) H Calcium Level 7.7 MG/DL (8.5-10.1) L Phosphorus Level 4.4 MG/DL (2.5-4.9) Magnesium Level 2.2 MG/DL (1.8-2.4) Total Bilirubin 0.3 MG/DL (0.2-1.0) Aspartate Amino Transf (AST/SGOT) 29 U/L (15-37) Alanine Aminotransferase (ALT/SGPT) 7 U/L (12-78) L Alkaline Phosphatase 126 U/L (46-116) H C-Reactive Protein, Quantitative 25.4 mg/dL (0.00-0.90) H Pro-B-Type Natriuretic Peptide 4821 pg/mL (0-125) H Total Protein 5.3 G/DL (6.4-8.2) L Albumin 1.3 G/DL (3.4-5.0) L Globulin 4.0 g/dL Albumin/Globulin Ratio 0.3 (1.0-2.7) L Random Vancomycin Level 15.8 ug/mL POC Whole Blood Glucose 122 MG/DL (74-106) H Pending 137 MG/DL (74-106) H Test 12/04/19 20:12 POC Whole Blood Glucose 142 MG/DL (74-106) H Objective HEENT: Atraumatic, normocephalic. ENT, pupils are equal, round, and reactive to light and accommodation. Positive pallor. NECK: Cannot assess JVP due to obesity and short neck and current use of BiPAP mask. No carotid bruit. Carotid upstrokes 2+ bilaterally. CARDIOVASCULAR: Normal S1, S2. Tachycardic. Regular rate and rhythm. No murmurs, gallops, or rubs. PMI is at fourth intercostal space in the midclavicular line. LUNGS: Bilateral crackles, mostly in the bases. ABDOMEN: Soft, nondistended. No hepatosplenomegaly. Positive bowel sounds. EXTREMITIES: No evidence of edema, clubbing, or cyanosis. Adryan Lopez MD Dec 04, 2019 23:44
--- NOTE | 2019-12-05 00:11 | Emergency Room Report ---
History of Present Illness General Chief Complaint: Dyspnea/Respdistress Source: Medical Record, PMD Present Illness HPI This is a 69-year-old female who was admitted to the hospital secondary to acute renal failure, history of alcohol abuse, bilateral pneumonia, sepsis. She had a complicated hospital course. She had to be emergently dialyzed. Patient was in stepdown unit when a CODE BLUE was called. According to nursing staff, she was bradycardic and became asystolic. They initiated CPR and gave her a dose of atropine. By the time I responded, she already received epinephrine. During the code, she received several doses of epinephrine. She with get a pulse back for about a minute or so and then lose her pulse again. I also proceeded to intubate the patient. I also started the patient on Levophed. After several rounds of epinephrine, she has no pulse even with Doppler. I stopped the code and pronounced the patient at 2320. Primary care doctor notified. Allergies: Coded Allergies: No Known Allergies (Unverified , 11/24/19) COVID-19 Screening Contact w/high risk pt: No Experienced COVID-19 symptoms?: No COVID-19 Testing performed CENTRIFUGE OPERATOR: No COVID-19 Screening: Negative COVID-19 Patient History Now: No Nursing Documentation-PMH Past Medical History Deferred: Pt Cognitively Impaired Past Medical History: Deferred Hx Cardiac Problems: No Hx Cancer: No Hx Gastrointestinal Problems: No History Of Psychiatric Problem: Yes - ETOH Abuse Hx Neurological Problems: No Physical Exam Vital Signs Date Time Temp Pulse Resp B/P (MAP) Pulse Ox O2 Delivery O2 Flow Rate FiO2 12/01/19 08:00 8.0 40 12/01/19 08:00 Venturi Mask 12/01/19 08:00 97.0 94 25 116/58 (77) 97 Procedures CPR/Code Blue CPR/Code Blue Narrative Please see code sheet for full list of medication given. Intubation Intubation : Consent: Emergent Intubation Method: orotracheal Tube Size (cm): 7.5 Medications: Etomidate, Succinylcholine Breath Sounds after Intubation: equal Intubation Complications: no complications Post Intubation Xray: No Attempts: One Patient Tolerated: Well Complications: None Medical Decision Making Diagnostic Impression: Primary Impression: Cardiac arrest ER Course Patient with cardiac arrest. She responded initially to epinephrine with return of pulse. Eventually, she has no pulse and was pronounced at 11:20 PM. Last Vital Signs Date Time Temp Pulse Resp B/P (MAP) Pulse Ox O2 Delivery O2 Flow Rate FiO2 12/04/19 20:00 118 12/04/19 20:00 15.0 100 12/04/19 20:00 Non-Rebreather 12/04/19 20:00 98.8 28 106/58 (74) 100 Disposition: ADMITTED INPATIENT Condition: Scripts No Active Prescriptions or Reported Meds Referrals: NOT CHOSEN IPA/,REFERRING (PCP) Chuck Caruso MD Dec 05, 2019 00:11
[2019-12-05] MEDS ORDERED: Iron Sucrose 100 MG in NS 55 ML IV SCH (21:00)
--- NOTE | 2019-12-06 15:50 | Discharge Summary ---
Discharge Summary Discharge Summary _ SUMMARY DATE OF ADMISSION: 11/24/2019 DATE OF EXPIRATION: 12/05/2019 REASON FOR ADMISSION: 69 years old female presented with s chief complaint of shortness of breath and respiratory distress. Her daughter called paramedics because patient was weak , coughing and had shortness of breath. Per daughter , patient had a history of alcohol abuse and probably undiagnosed psychiatric disorder. Patient had not seen the doctor for a long time, since she refused to go to the doctors. She had diarrhea and vomiting about a week . She had increased cough. No wheezing, no hemoptysis. Patient was hypoxic, 79% on RA and subsequently started on supplemental oxygen via nonrebreathing mask. Laboratory work-up revealed significant leukocytosis WBC 20.8, hemoglobin 6.8 , hematocrit 23.3, platelet count 429. Lactic acid 1.1 Chemistry demonstrated sodium 138, potassium 8.6, anion gap 19. BUN 157 , creatinine 14.2 Glucose 139. AST 72, ALT 43 , lipase 941 Ammonia 22 . Troponin negative , EKG revealed sinus rhythm, pro BNP 5124 Serum alcohol level less than 3. Chest x-ray demonstrated cardiomegaly, no acute findings. CT of the chest , abdomen , and pelvis revealed bilateral pneumonia, mild bilateral hydronephrosis with Kaminski in the urinary bladder and enlarged pelvic lymph nodes , which could reflect reactive changes from cellulitis in the setting of generalized bony wall edema, but neoplasm such as lymphoma not excluded. Rapid COVID-19 in the ER was negative. In emergency department septic work-up initiated Patient started on IV fluids, pancultured and started on empiric antibiotics Hyperkalemia was treated. Patient subsequently admitted to the hospital for further management. CONSULTANTS: nuclear spectroscopist Dr. Lopez pulmonary Dr. Rosa ID specialist Dr. Love GI specialist Dr. Davis photo checker Dr. Garcia surgery Dr. Naik INTERNET MANAGER Dr. Brown bow maker/oncologist Dr. Miranda physical medicine rehabilitation Dr. Ram HOSPITAL COURSE: Patient initially admitted to telemetry floor. However labs revealed renal failure and significant hyperkalemia , and patient subsequently was transferred to ICU . Patient started on IV fluids with bicarbonate. Hyperkalemia was treated . Patient started on empiric antibiotics. Blood cultures were negative. Rapid COVID x3 was negative. Sputum culture revealed MRSA. Urine culture was negative Repeated blood cultures were negative as well . Patient demonstrated persistent leukocytosis. Antibiotics further provided as per ID specialist recommendation. Supplemental oxygen provided and titrated to keep pulse oximetry above 92%. Pulmonary toilet provided as needed. Patient was followed-up with chest x-ray. Venous duplex bilateral lower extremity revealed acute DVT left common femoral to proximal superficial femoral veins. Unable to start anticoagulation given significant anemia. Patient subsequently had stat VQ scan, which revealed intermediate probability for pulmonary embolism. Patient subsequently undergone placement of IVC filter. CTA of the chest revealed no evidence of PE, but showed bilateral infiltrates with right lower lobe consolidation Patient had evidence of mediastinal adenopathy. There was a concern of malignancy. ID specialist recommended to follow-up with flow cytometry. Renal parameters and electrolytes were closely monitored. Electrolytes corrected as needed. Nephrotoxic's were avoided. Patient initially was on the IV fluids. Creatinine did not improve. Patient started on hemodialysis. Patient initially had a temporary hemodialysis hemodialysis catheter placed by general surgeon at the bedside. Volumes were closely monitored. Patient demonstrated episode of vaginal bleeding . Per INTERNET MANAGER specialist , patient was extremely poor surgical candidate, given her shortness of breath, active DVT, sepsis ,end-stage renal disease and alcoholic encephalopathy. Patient was not stable at that time for hysteroscopy , D&C and endometrial ablation . Other options such as uterine artery embolization, not available at this facility and required transfer to a higher level of care. Progesterone treatment with Provera was not a choice for this patient with active DVT . Therefore, INTERNET MANAGER recommended conservative management with close monitoring of r hemoglobin , hematocrit and transfuse as needed . While in the hospital , patient received total of 7 units of packed red blood cells. Profuse vaginal bleeding soon stopped, and atient only had spotting. Patient required permanent hemodialysis catheter, given no improvement in renal function. Given significant leukocytosis with the highest being 41.7 , waited for ID clearance. Infectious disease specialist cleared patient for permanent hemodialysis catheter placement on 12/02 when WBCs trended down . Patient subsequently undergone placement by interventional radiology of permanent tunneled hemodialysis catheter. Hemodialysis further provided as per photo checker recommendation. Aspiration precaution maintained. Diet texture provided as per speech therapist recommendation. Patient was on Epogen and IV iron. Stool for OB was negative x3 . Platelet count was closely monitored. Abdominal ultrasound was done given evidence of enlarged lymph nodes on the CT treatment. It revealed fatty liver with small septated cyst, gallstones . The spleen , left kidney, common bile duct ,pancreas, aorta, were not well defined. Lipase and AST were trending down. Hepatitis panel was negative. HIV test was nonreactive. TB spot was negative. CT of the head revealed no acute intracranial pathology. Plan was for this patient to go to rehabilitation unit , when medically stable. Patient was seen by physical medicine account support specialist. Fall precautions maintained. Patient was working with physical therapist. On 12/04 CODE BLUE was called . Patient was bradycardic and subsequently became asystolic. CPR initiated . Code continued as per ACLS protocol. Patient was intubated . Patient was started on pressors. However patient remained pulseless ,even with Doppler, after several rounds of epinephrine. Subsequently the CODE BLUE was stopped . Patient was pronounced at 23:20 on 12/04 . Cause of cardiopulmonary arrest . FINAL DIAGNOSES: s/p cardiopulmonary arrest Sepsis with shock MRSA bilateral pneumonia Acute hypoxemic respiratory failure Acute toxic metabolic encephalopathy Acute left lower extremity common femoral to proximal superficial veins DVT Probable PE status post IVC filter Acute renal failure , requiring start of hemodialysis, likely on chronic kidney disease Severe pulmonary hypertension Elevated lipase , possible pancreatitis Mediastinal and pelvic adenopathy, probably underlying malignancy Vaginal bleeding Anemia Anasarca Possible psychiatric disorder ETOH abuse I have been assigned to dictate discharge summary for this account. Carlita Brewster NP Dec 06, 2019 15:50
== END 2019-12-05 23:20 | disposition expired | DRG 853 ==
LOC: EDBD 00:48 → EMR 01:10 → 2E 03:43 → EDBEDREQ 05:24 → 2E 07:29 → ICU 09:10 → 2W 11-25 17:16
PROC: 0YH733Z Insertion of Infusion Device into Right Femoral Region, Percutaneous Approach (ICD-10-PCS; principal; 2019-11-24)
PROC: 5A1D70Z Performance of Urinary Filtration, Intermittent, Less than 6 Hours Per Day (ICD-10-PCS; 2019-11-24)
PROC: 30233N1 Transfusion of Nonautologous Red Blood Cells into Peripheral Vein, Percutaneous Approach (ICD-10-PCS; 2019-11-24)
PROC: 3E03328 Introduction of Oxazolidinones into Peripheral Vein, Percutaneous Approach (ICD-10-PCS; 2019-11-24)
PROC: 5A09557 Assistance with Respiratory Ventilation, Greater than 96 Consecutive Hours, Continuous Positive Airway Pressure (ICD-10-PCS; 2019-11-24)
PROC: 06H03DZ Insertion of Intraluminal Device into Inferior Vena Cava, Percutaneous Approach (ICD-10-PCS; 2019-11-26)
PROC: 05HM33Z Insertion of Infusion Device into Right Internal Jugular Vein, Percutaneous Approach (ICD-10-PCS; 2019-12-03)
PROC: 5A12012 Performance of Cardiac Output, Single, Manual (ICD-10-PCS; 2019-12-05)
PROC: 0BH17EZ Insertion of Endotracheal Airway into Trachea, Via Natural or Artificial Opening (ICD-10-PCS; 2019-12-05)
DX: A41.9 Sepsis, unspecified organism (principal); J18.9 Pneumonia, unspecified organism; J96.01 Acute respiratory failure with hypoxia; G92 Toxic encephalopathy; K85.90 Acute pancreatitis without necrosis or infection, unspecified; N18.6 End stage renal disease; I26.99 Other pulmonary embolism without acute cor pulmonale; I50.31 Acute diastolic (congestive) heart failure; N17.9 Acute kidney failure, unspecified; I12.0 Hypertensive chronic kidney disease with stage 5 chronic kidney disease or end stage renal disease; I82.412 Acute embolism and thrombosis of left femoral vein; N13.30 Unspecified hydronephrosis; Z99.2 Dependence on renal dialysis; E87.5 Hyperkalemia; F10.10 Alcohol abuse, uncomplicated; I27.20 Pulmonary hypertension, unspecified; N93.9 Abnormal uterine and vaginal bleeding, unspecified; D64.9 Anemia, unspecified; F99 Mental disorder, not otherwise specified; R59.0 Localized enlarged lymph nodes; E78.5 Hyperlipidemia, unspecified; E66.01 Morbid (severe) obesity due to excess calories; D63.8 Anemia in other chronic diseases classified elsewhere; G31.2 Degeneration of nervous system due to alcohol; K76.0 Fatty (change of) liver, not elsewhere classified; D50.0 Iron deficiency anemia secondary to blood loss (chronic); Z20.828 Contact with and (suspected) exposure to other viral communicable diseases
CPT/HCPCS: 36415; 36600; 70450; 71045; 71250; 71275; 74176; 76000; 76705; 76857; 76937; 78579; 78580; 80048; 80053; 80061; 80076; 80202; 81001; 82140; 82150; 82270; 82550; 82607; 82728; 82746; 82803; 82962; 82977; 83036; 83540; 83550; 83605; 83615; 83690; 83735; 83880; 84100; 84443; 84484; 84550; 85007; 85025; 85610; 85730; 86140; 86703; 86705; 86706; 86709; 86803; 86850; 86900; 86901; 86920; 87040; 87070; 87086; 87181; 87205; 87340; 92950; 93005; 93306; 93970; 94640; 94660; 96365; 96367; 96375; 99291; A9503; G0480; J1815; J7620; U0002